=== PATIENT | male | born 1955 | race Caucasian/White ===

== ENCOUNTER → 2018-08-07 12:59 | Outpatient (CLI) | payer MEDICARE, SELFPAY ==
--- NOTE | 2018-08-07 13:01 | CT_ITS ---
CT lung screening EXAM: CT LUNG LOW DOSE WO CONTRAST HISTORY: 45 pack year smoking history asymptomatic for lung cancer ITS.REASON: CURRENT TOBACCO USE ORDERING PHYSICIAN: Clyde Lanza MD PATIENT AGE: 63 years COMPARISON: None TECHNIQUE: The exam was performed on a GE Light Speed [address] scanner using 2.90 mGy CTDI. A low dose helical CT CHEST was performed on a multi-detector scanner. All CT scans at the facility use one or more dose reduction, viz: automated exposure control, ma/kV adjustment per patient size (including targeted exams where dose is matched to indication, i.e. head), or iterative reconstruction technique. The LDCT was performed in a facility that meets the criteria for the screening program. Data regarding this exam was submitted to ACR which is an approved registry. The order for this exam indicates that it came as a result of a lung cancer screening counseling shard decision-making visit that included all the elements required of such a visit including smoking cessation. The radiologist interpreting this exam meets the [facility] criteria for the LDCT lung cancer screening program. The exam is reported using the Lung-RADS classification scale and reported to the ACR registry. NOTE: This study was performed for the specific purposes of lung cancer screening and is not an alternative to diagnostic chest CT. RADIATION DOSE: CTDI vol(CT dose Index-volume) = 2.90mG DLP (Dose Length Product) = 125.33 mGcm FINDINGS: COPD with centrilobular emphysema and scattered areas of scarring with bilateral scattered calcified nodules. There are scattered fibrotic changes. Calcified pleural plaque is present in the left lower lobe. Noncalcified 4 mm nodule apical superior segment left lower lobe. There are biapical fibronodular changes probably related to scarring. 6 month follow-up suggested to confirm short-term stability. Scattered calcified nodes are present in the mediastinum. There are coronary artery calcifications. IMPRESSION: 1. Lung RADS Category: 3, probably benign biapical fibronodular changes 2. Other findings: Centrilobular emphysema with scattered areas of fibrosis and old granulomatous disease, coronary artery calcification RECOMMENDATIONS: 6 month LDCT follow-up
== END ==
PROVIDERS: PCP Family Medicine; Visit Provider Family Medicine
DX: Z12.2 Encounter for screening for malignant neoplasm of respiratory organs (principal); Z87.891 Personal history of nicotine dependence

== ENCOUNTER → 2020-02-27 13:22 | Outpatient (CLI) | payer MEDICARE, SELFPAY ==
--- NOTE | 2020-02-27 13:29 | CT_ITS ---
PROCEDURE: CT LUNG SCREENING CLINICAL INDICATION: CURRENT SMOKER 45 pack year smoking history COMPARISON: CT LUNGSCREEN CT lung screening from 08/07/2018 TECHNIQUE: The exam was performed on a GE Light Speed [address] scanner using 2.90 mGy CTDI. A low dose helical CT CHEST was performed on a multi-detector scanner. All CT scans at the facility use one or more dose reduction, viz: automated exposure control, ma/kV adjustment per patient size (including targeted exams where dose is matched to indication, i.e. head), or iterative reconstruction technique. The LDCT was performed in a facility that meets the criteria for the screening program. Data regarding this exam was submitted to ACR which is an approved registry. The order for this exam indicates that it came as a result of a lung cancer screening counseling shard decision-making visit that included all the elements required of such a visit including smoking cessation. The radiologist interpreting this exam meets the [facility] criteria for the LDCT lung cancer screening program. The exam is reported using the Lung-RADS classification scale and reported to the ACR registry. NOTE: This study was performed for the specific purposes of lung cancer screening and is not an alternative to diagnostic chest CT. RADIATION DOSE: CTDI vol(CT dose Index-volume) = 2.90mG DLP (Dose Length Product) = 117.24 mGcm FINDINGS: Biapical scarring once again noted with scattered nodular opacities which are stable. There are multiple calcified nodules. Centrilobular emphysema. No new suspicious nodules OTHER FINDINGS: Calcified pleural plaque left lower lobe posteriorly. Coronary artery calcifications are present. Calcified nodes are present in the mediastinum. IMPRESSION: Lung-RADS Category 2 Benign Appearance or Behavior Follow-up: Continue annual screening with LDCT in 12 months Dictated by: Tyrese Perez MD 03/08/2020 10:29 Tyrese Perez MD in [place] 03/08/2020 10:29
== END ==
PROVIDERS: PCP Family Medicine; Visit Provider Family Medicine
DX: Z87.891 Personal history of nicotine dependence (principal); Z12.2 Encounter for screening for malignant neoplasm of respiratory organs

== ENCOUNTER 2020-05-06 12:29 | Day surgery (SDC) | payer MEDICARE, SELFPAY ==
[2020-05-06] VITALS (12 sets, daily range): BP systolic 88–135; BP diastolic 38–76; PULSE 74–104; RESP 16–20; TEMP 36.6–37.1; O2SAT 94–99; BMI 17.3; BMI 17.4
[2020-05-06 12:55] LABS: Basophils # 0.1 K/mm3 (0-0.2); Basophils % 0.6 % (0.1-2.0); Eosinophils # 0.2 K/mm3 (0.0-0.4); Eosinophils % 1.3 % (0.1-12.0); Hematocrit 49.8 % (42.0-52.0); Hemoglobin 16.1 g/dL (14.1-18.0); Lymphocytes # 1.2 K/mm3 (0.7-4.5); Lymphocytes % 8.2 % (10-50); Mean Corpuscular HGB Conc 32.3 g/dL (31.8-35.4); Mean Corpuscular Hemoglobin 32.8 pg (27.0-31.2); Mean Corpuscular Volume 101.6 fl (80-94); Mean Platelet Volume 7.8 fl (7.4-10.4); Monocytes # 0.5 K/mm3 (0.1-1.0); Monocytes % 3.5 % (1.7-9.3); Neutrophils # 12.6 K/mm3 (1.8-7.8); Neutrophils % 86.5 % (37.0-80.0); Platelet Count 261 K/mm3 (142-424); Red Cell Distribution Width 13.6 % (11.5-17.5); White Blood Count 14.6 K/mm3 (4.8-10.8)
[2020-05-06 12:57] LABS: Chloride 101 mmol/L (98-107); Potassium 4.6 mmoL/L (3.5-5.1); Sodium 140 mmol/L (136-145)
[2020-05-06 12:58] LABS: MANUAL DIFFERENTIAL MANUAL DIFFERENTIAL (MANUAL DIFF)
[2020-05-06 13:00] LABS: Anion Gap 13.6 mEq/L (5-15); Blood Urea Nitrogen 19 mg/dl (9-20); Carbon Dioxide 30 mmol/L (22.0-30.0); Creatinine Clearance Estimated 60 mL/min (50-200); Estimated Glomerular Filt Rate 84 ml/min (>60); GFR (African American) 102 ML/MIN (>60); Glucose 120 mg/dl (74-100)
--- NOTE | 2020-05-06 13:01 | PC.NURSE ---
pt thought the food bolus had passed , after drinking water he said it was still there. pt resting
[2020-05-06 13:04] LABS: Anisocytosis 1+; Lymphocytes % 11 % (10-50); Macrocytosis 1+; Monocytes % 5 % (2-9); Neutrophils % 84 % (42-76); Platelet Estimate Normal; Stomatocytes 1+; Total Cells Counted 100
--- NOTE | 2020-05-06 13:20 | HMH.EDGENADL ---
ED Disposition Clinical Impression: Esophageal obstruction due to food impaction Disposition: Admitted as Observation Condition on Discharge: Good - Critical Care Critical Care Time: No Attestation: On 05/06/20, the high probability of a clinically significant, sudden or life threatening deterioration of the following system(s) required my full and direct attention, intervention and personal management. The time I documented below is in addition to time spent performing reported procedures but includes the following listed in this critical care notation. Medical Decision Making - Medical Records Medical records reviewed: Yes: I reviewed the patient's medical records. - Homero Inquiry Pt receiving controlled substance: No Vital Signs: 05/06/20 12:30 05/06/20 12:55 05/06/20 13:00 Temperature 98.6 F Temperature Source Oral Pulse Rate Pulse Rate [Radial] 104 H 103 H 96 H Respiratory Rate 20 20 20 Blood Pressure Blood Pressure [Right Arm] 135/76 110/73 131/75 Blood Pressure Mean [Right Arm] 95 85 93 Blood Pressure Source [Right Arm] Automatic Cuff Automatic Cuff Blood Pressure Position Blood Pressure Position [Right Arm] Sitting Supine Supine 02 Sat by Pulse Oximetry 98 98 97 Oxygen Delivery Method Room Air Room Air Room Air 05/06/20 13:51 05/06/20 14:12 05/06/20 14:51 Temperature 98.7 F Temperature Source Temporal Artery Scan Pulse Rate Pulse Rate [Radial] 88 85 102 H Respiratory Rate 18 18 16 Blood Pressure Blood Pressure [Right Arm] 127/66 123/67 132/74 Blood Pressure Mean [Right Arm] 86 85 93 Blood Pressure Source [Right Arm] Automatic Cuff Blood Pressure Position Blood Pressure Position [Right Arm] Sitting 02 Sat by Pulse Oximetry 95 95 97 Oxygen Delivery Method Room Air 05/06/20 14:55 Temperature 98 F Temperature Source Oral Pulse Rate 74 Pulse Rate [Radial] Respiratory Rate 16 Blood Pressure 125/74 Blood Pressure [Right Arm] Blood Pressure Mean [Right Arm] Blood Pressure Source [Right Arm] Blood Pressure Position Sitting Blood Pressure Position [Right Arm] 02 Sat by Pulse Oximetry Oxygen Delivery Method Room Air - Lab Data Lab Results 05/06/20 12:45: WBC 14.6 H, RBC 4.90, Hgb 16.1, Hct 49.8, MCV 101.6 H, MCH 32.8 H, MCHC 32.3, RDW 13.6, Plt Count 261, MPV 7.8, Neut % (Auto) 86.5 H, Lymph % (Auto) 8.2 L, [place] % (Auto) 3.5, Eos % (Auto) 1.3, Baso % (Auto) 0.6, Neut # (Auto) 12.6 H, Lymph # (Auto) 1.2, [place] # (Auto) 0.5, Eos # (Auto) 0.2, Baso # (Auto) 0.1, Total Counted 100, Neutrophils % (Manual) 84 H, Lymphocytes % (Manual) 11, Monocytes % (Manual) 5, Platelet Estimate Normal, Anisocytosis 1+, Macrocytosis 1+, Stomatocytes 1+ 05/06/20 12:45: Sodium 140, Potassium 4.6, Chloride 101, Carbon Dioxide 30, Anion Gap 13.6, BUN 19, Creatinine 0.90, Estimated Creat Clear 60, Estimated GFR 84, Est GFR ( Amer) 102, Glucose 120 H, Calcium 10.0 05/06/20 12:45: SARS-CoV-2 IgG Ab (Rapid) Negative, SARS-CoV-2 IgM Ab (Rapid) Negative Result diagrams: 05/06/20 12:45 05/06/20 12:45 Orders (Tests/Meds): ED MEDICATIONS Discontinued Medications Generic Name Dose Route Start Last Admin Trade Name Freq PRN Reason Stop Dose Admin Glucagon 1 mg 05/06/20 12:41 05/06/20 12:50 Glucagon 1 Mg/Ml Vial IV 05/06/20 12:42 1 mg ONCE ONE Administration Nitroglycerin 0.4 mg 05/06/20 12:42 05/06/20 12:50 Nitroglycerin 0.4mg Sl Tablet SL 05/06/20 12:43 0.4 mg ONCE ONE Administration Medical Decision Narrative: 64-year-old male with food bolus obstruction. IV placed and glucagon and nitroglycerin attempted however he is still spitting up and unable to tolerate by mouth. Plan to admit for endoscopy. General Adult HPI - General Chief complaint: Nausea/Vomiting/Diarrhea Stated complaint: something stuck in throat Time Seen by Provider: 05/06/20 13:00 Mode of Arrival: Ambulatory Limitations: No Limitations Description of Symptoms (R
--- NOTE | 2020-05-06 14:23 | PC.NURSE ---
Dr Foster spoke with Dr Bell.
--- NOTE | 2020-05-06 14:40 | PC.NURSE ---
pt to surgery for EGD
--- NOTE | 2020-05-06 14:59 | HMH.GSHP ---
HPI HPI: 64-year-old male with food bolus obstruction. He says he was eating roast beef yesterday for lunch and has been unable to swallow since then. He says that he is spitting up anything that he tries to swallow and feels the obstruction in his mid chest. He went to see his primary care physician today but was referred to the emergency department. He denies nausea vomiting diarrhea abdominal pain. He has never had a food bolus obstruction before although he has had symptoms of occasional self limited dysphagia. [facility] History I have reviewed the patient's past medical history: Yes Medical History: Denies:: Cancer, Diabetes Mellitus Type 1, Diabetes Mellitus Type 2, Internal Pacemaker, Lung Disease, MRSA, Seizures *Have you ever received a pneumonia vaccine?: Yes *Have you received a flu vaccine this season?: Yes Other Surgeries: Yes: Colonoscopy, EGD, Other. No: Pacemaker Amputation: No Fractures: Yes - *Social History Smoking Status: Current every day smoker Tobacco Type: cigarettes # Packs/Day (cigarettes): 20 Alcohol Intake: current Alcohol Intake Frequency:: a few times a week Substance Use Type: denies use *Occupational Status:: retired Housing: house Household Members: spouse *Travel in the last 8 weeks: None Family Hx:: Cancer, Diabetes, Heart Attack, Tuberculosis Review of Systems - Review of Systems Review of systems:: unable to obtain - *Neurologic Denies abnormal walking, Denies dizziness, Denies numbness, Denies sensory deficit, Denies tingling, Denies weakness Meds Home Medications Medication Instructions Recorded Confirmed Type Gabapentin 2,400 mg PO DAILY 05/06/20 05/06/20 History Levocetirizine Dihydrochloride 5 mg PO DAILY 05/06/20 05/06/20 History diazePAM [Diazepam 10 mg tablet] 10 mg PO DAILY 05/06/20 05/06/20 History Allergies Allergy/AdvReac Type Severity Reaction Status Date / Time IV contrast Dye Allergy Intermediate Hives Uncoded 02/19/19 10:08 Exam Vital signs and Labs for Last 24 Hours: Temp Pulse Resp BP Pulse Ox 98 F 74 16 125/74 95 05/06/20 14:55 05/06/20 14:55 05/06/20 14:55 05/06/20 14:55 05/06/20 14:12 Laboratory Results - last 24 hr 05/06/20 12:45: WBC 14.6 H, RBC 4.90, Hgb 16.1, Hct 49.8, MCV 101.6 H, MCH 32.8 H, MCHC 32.3, RDW 13.6, Plt Count 261, MPV 7.8, Neut % (Auto) 86.5 H, Lymph % (Auto) 8.2 L, [place] % (Auto) 3.5, Eos % (Auto) 1.3, Baso % (Auto) 0.6, Neut # (Auto) 12.6 H, Lymph # (Auto) 1.2, [place] # (Auto) 0.5, Eos # (Auto) 0.2, Baso # (Auto) 0.1, Total Counted 100, Neutrophils % (Manual) 84 H, Lymphocytes % (Manual) 11, Monocytes % (Manual) 5, Platelet Estimate Normal, Anisocytosis 1+, Macrocytosis 1+, Stomatocytes 1+ 05/06/20 12:45: Sodium 140, Potassium 4.6, Chloride 101, Carbon Dioxide 30, Anion Gap 13.6, BUN 19, Creatinine 0.90, Estimated Creat Clear 60, Estimated GFR 84, Est GFR ( Amer) 102, Glucose 120 H, Calcium 10.0 I & O for Last 24 hours: Intake & Output 05/04/20 05/05/20 05/06/20 05/07/20 11:59 11:59 11:59 11:59 Weight 128 lb - *Routine HEENT Exam Head: Present: normocephalic Eye: Present: EOMI, PERRL ENT: Present: mucous membranes moist - *Routine Neck Exam Present: supple. Absent: lymphadenopathy - *Routine Respiratory Exam Present: CTA bilaterally - *Routine Cardiovascular Exam Present: RRR - *Routine Abdominal Exam Present: soft, normoactive bowel sounds. Absent: tenderness - *Routine Extremities Exam Absent: cyanosis, clubbing, edema - *Routine Skin Exam Present: warm. Absent: rash - *Routine Neurological Exam Present: alert, oriented X3 Results - Results Lab Results Last 24 Hours:: Laboratory Results - last 24 hr 05/06/20 12:45: WBC 14.6 H, RBC 4.90, Hgb 16.1, Hct 49.8, MCV 101.6 H, MCH 32.8 H, MCHC 32.3, RDW 13.6, Plt Count 261, MPV 7.8, Neut % (Auto) 86.5 H, Lymph % (Auto) 8.2 L, [place] % (Auto) 3.5, Eos % (Auto) 1.3, Baso % (Auto) 0.6, Neut # (Auto) 12.6 H, Lymph # (Auto)
[2020-05-06 15:05] LABS: Coronavirus 19 IgG Antibody Negative (Negative); Coronavirus 19 IgM Antibody Negative (Negative)
--- NOTE | 2020-05-06 15:38 | P.PN_ITS ---
[facility] Anesthesia Checklist - Structural Data Admitted From: Home Planned Operative Procedure/s: removal foreign body esoph Consent for Planned Operative Procedure(s) Verified: Yes - Additional verifications Anesthesia Reactions: No - Airway Assessment C-Spine Mobility Assessed: Yes TMJ Mobility Assessed: Yes Dentition: Dentures-poor fitting - Neurological Assessment Level of Consciousness: Awake, Alert, Appropriate - Anesthesia Plan Anesthesia Risk discussed: Yes Anesthesia Plan: Verified ASA Class: III Anesthesia Type: MAC [facility] History I have reviewed the patient's past medical history: Yes Medical History: Denies:: Cancer, Diabetes Mellitus Type 1, Diabetes Mellitus Type 2, Internal Pacemaker, Lung Disease, MRSA, Seizures *Have you ever received a pneumonia vaccine?: Yes *Have you received a flu vaccine this season?: Yes Anesthesia experience/problems:: none Other Surgeries: Yes: Colonoscopy, EGD, Other. No: Pacemaker Amputation: No Fractures: Yes - *Social History Smoking Status: Current every day smoker Tobacco Type: cigarettes # Packs/Day (cigarettes): 1 Alcohol Intake: never Alcohol Intake Frequency:: a few times a week Substance Use Type: denies use *Occupational Status:: retired Housing: house Household Members: spouse *Travel in the last 8 weeks: None Family Hx:: Cancer, Diabetes, Heart Attack, Tuberculosis
--- NOTE | 2020-05-06 15:38 | P.PCN_ITS ---
- Procedure: Date: 05/06/20 Patient Date of :: 1955 Procedure Performed:: Esophagogastroduodenoscopy with retrieval of food bolus/impaction Indications:: 64-year-old male with food bolus obstruction. He says he was eating roast beef yesterday for lunch and has been unable to swallow since then. He says that he is spitting up anything that he tries to swallow and feels the obstruction in his mid chest. He went to see his primary care physician today but was referred to the emergency department. He denies nausea vomiting diarrhea abdominal pain. He has never had a food bolus obstruction before although he has had symptoms of occasional self limited dysphagia. Patient has no documented history of previous reflux and does not take any antacids. He does admit to some alcohol consumption and he is a smoker. Performing Provider:: Jose Bell MD Referring Provider:: Haroon Lanza MD Sedation:: MAC sedation Procedure:: Consent was obtained patient was taken to endoscopy procedure room. He was positioned in a lateral decubitus position. Adequate intravenous sedation was achieved with anesthesia titration of propofol. Olympus endoscope was inserted via the oropharynx and advanced into the esophagus. There was an appreciable amount of secretions which were suctioned free. Endoscope was advanced to approximately 40 cm from the incisors at which point a large meat food bolus was encountered. This was grasped with the Caesar grasping forcep. A small portion of the meat bolus was able to be extracted with withdrawal of the Caesar forcep. Kruse net was then inserted after the endoscope was reinserted. A small to moderate amount of the food bolus was able to be retrieved with withdrawal of the Kruse net. Endoscope was then once again reinserted and Kruse net was reinserted as well. At this point a very large bolus of meat was able to be retrieved with the Kruse net and withdrawn. Endoscope was reinserted. Obstruct ion was relieved. There is no evidence of any residual meat impaction. The endoscope was able to be advanced into the stomach without issue. Retroflexion revealed no evidence of any appreciable hiatal hernia. Endoscope was withdrawn into the distal esophagus. There was some appreciable inflammation due to the previous impaction. There was some evidence of distal erosive esophagitis secondary to the food impaction. Stomach was desufflated and the endoscope was withdrawn. Findings:: Food impaction with esophageal obstruction Recommendations:: Recommend proton pump inhibitors. I would recommend clear liquid diet for 24 hours then full liquid diet for 24 hours then soft diet with no meat or bread products. Recommend elective endoscopy in several weeks to reassess the area and potentially perform dilatation and biopsies if needed. Complications:: None immediately apparent Estimated blood obtained (mL): 0
== END 2020-05-06 16:12 | disposition home or self-care (01) ==
LOC: ER 14:36 → SDC 14:44
PROVIDERS: Emergency Provider Emergency Medicine; PCP Family Medicine; Visit Provider Surgery
PROC: 0DJ08ZZ Inspection of Upper Intestinal Tract, Via Natural or Artificial Opening Endoscopic (ICD-10-PCS; CPT 43235; principal; 2020-05-06 15:00)
DX: T18.128A Food in esophagus causing other injury, initial encounter (principal); K22.2 Esophageal obstruction; K22.10 Ulcer of esophagus without bleeding; Z91.041 Radiographic dye allergy status; Z79.899 Other long term (current) drug therapy; Z72.0 Tobacco use; Z80.9 Family history of malignant neoplasm, unspecified; Z83.3 Family history of diabetes mellitus; Z82.49 Family history of ischemic heart disease and other diseases of the circulatory system
CPT/HCPCS: 43247; 80048; 85007; 85025; 86328; 93005; 96365; 96375; 99284; J1610

== ENCOUNTER → 2020-05-29 10:23 | Outpatient (CLI) | payer MEDICARE, SELFPAY ==
--- NOTE | 2020-05-29 10:30 | XR_ITS ---
PROCEDURE: XR MULTIPLE SPINE 6+V CLINICAL INDICATION: CONTUSION OF LOWER BACK, Pain COMPARISON: MR PELW/O MRI-PELVIS W/O from 09/11/[address] lung screening from 08/07/2018 FINDINGS: Thoracic spine: Mild multilevel degenerative disc disease. No acute fracture or dislocation. Mild upper thoracic curvature convex left. There is a density overlying the anterior aspect of the sternum which may represent something upon the patient which appears to represent to folded wires. Lumbar spine: Postsurgical changes with inter pedicular screws at L4-5. No fracture or dislocation. There is degenerative disc disease at L2-L3 L3-L4 L4-5 and L5-S1. Subcortical sclerosis noted in the left hip which may be due to avascular necrosis. Other findings:There is a moderate amount of retained colonic feces. IMPRESSION: 1. Postsurgical and degenerative changes. No acute fracture. 2. Avascular necrosis of the left femoral head Dictated by: Tyrese Perez MD 05/29/2020 12:16 Tyrese Perez MD in [place] 05/29/2020 12:16
== END ==
PROVIDERS: PCP Family Medicine; Visit Provider Family Medicine
DX: S30.0XXA Contusion of lower back and pelvis, initial encounter (principal)
CPT/HCPCS: 72084

== ENCOUNTER → 2020-06-15 11:02 | Outpatient (CLI) | payer MEDICARE, SELFPAY ==
[2020-06-15 12:17] LABS: Coronavirus 19 IgG Antibody Negative (Negative); Coronavirus 19 IgM Antibody Negative (Negative)
== END ==
PROVIDERS: Visit Provider Surgery
DX: Z01.812 Encounter for preprocedural laboratory examination (principal); Z20.822 Contact with and (suspected) exposure to COVID-19; Z13.810 Encounter for screening for upper gastrointestinal disorder; R13.10 Dysphagia, unspecified
CPT/HCPCS: 36415; 86328

== ENCOUNTER 2020-06-16 06:15 | Day surgery (SDC) | payer MEDICARE, SELFPAY ==
[2020-06-09 13:56] VITALS: BMI 18.7
[2020-06-16 06:48] VITALS: BP 133/67; PULSE 85; RESP 18; TEMP 36.2; O2SAT 97
--- NOTE | 2020-06-16 07:39 | HMH.ANESCL ---
[facility] Anesthesia Checklist - Patient Identification Patient Identification: Arm Band - Structural Data Admitted From: Home Planned Operative Procedure/s: egd Consent for Planned Operative Procedure(s) Verified: Yes Verified Documents: Surgical Consent, History and Physical - NPO Status Verified Time NPO: 00:00 - Additional verifications Anesthesia Reactions: No - Airway Assessment C-Spine Mobility Assessed: Yes (mp2) TMJ Mobility Assessed: Yes Dentition: Edentulous - Neurological Assessment Level of Consciousness: Awake, Alert - Anesthesia Plan Anesthesia Risk discussed: Yes Anesthesia Plan: Verified ASA Class: II Anesthesia Type: MAC [facility] History I have reviewed the patient's past medical history: Yes Medical History: Reports:: Anxiety, Gastroesophageal Reflux Disease(GERD) Denies:: Cancer, Diabetes Mellitus Type 1, Diabetes Mellitus Type 2, Internal Pacemaker, Lung Disease, MRSA, Seizures *Have you ever received a pneumonia vaccine?: Yes *Have you received a flu vaccine this season?: Yes Anesthesia experience/problems:: nac Other Surgeries: Yes: Colonoscopy, EGD, Other. No: Pacemaker Amputation: No Fractures: Yes - *Social History Last grade of school completed: 9th or 10th Smoking Status: Current every day smoker Tobacco Type: cigarettes # Packs/Day (cigarettes): 1 Alcohol Intake: never Alcohol Intake Frequency:: a few times a week Substance Use Type: denies use *Occupational Status:: retired Housing: house Household Members: spouse *Travel in the last 8 weeks: None Family Hx:: Cancer, Diabetes, Heart Attack, Tuberculosis
[2020-06-16 07:46] VITALS: BP 87/50; PULSE 69; RESP 12; TEMP 36.2; O2SAT 96
[2020-06-16 07:49] VITALS: O2SAT 97
--- NOTE | 2020-06-16 07:49 | HMH.SCOPE ---
- Procedure: Date: 06/16/20 Patient Date of :: 1955 Procedure Performed:: Esophagogastroduodenoscopy with biopsy and dilatation to 20 mm using pneumatic dilator Indications:: Patient is a 64-year-old male. He underwent emergent upper endoscopy on 05/06/2020 for esophageal obstruction secondary to food bolus/impaction. He has been asymptomatic subsequently. However, he has had some indigestion. When he followed up in the office recently I started him on proton pump inhibitors. Performing Provider:: Jose Bell MD Referring Provider:: Haroon Lanza MD Sedation:: MAC sedation Procedure:: Patient was taken to endoscopy procedure room. He was positioned in lateral decubitus position. Adequate intravenous sedation was achieved. Olympus endoscope was inserted via the oropharynx. It was advanced through the esophagus. There is some minor tortuosity of the esophagus. Gastroesophageal junction was encountered at approximately 45 cm from the incisors. Stomach was cannulated and insufflated. The endoscope was advanced through the pylorus and into the proximal duodenum which appeared normal. Within the stomach gastric biopsy was obtained for CLOtest for H. pylori. Gastric biopsy was obtained for histopathologic analysis. A couple of biopsies were obtained at the gastroesophageal junction. A couple of distal esophageal random biopsies were obtained. There was some minor luminal narrowing at the gastroesophageal junction. This was dilated sequentially to 18 mm, 19 mm, and ultimately 20 mm. There appeared to be good result. Stomach was desufflated and the scope was withdrawn. Findings:: Gastroesophageal junction at 45 cm from the incisors Minor distal esophageal luminal narrowing Recommendations:: Continue proton pump inhibitors for now. Treat H. pylori if positive Complications:: None immediately apparent Estimated blood obtained (mL): 2
[2020-06-16 07:56] VITALS: BP 88/58; PULSE 67; RESP 16; O2SAT 96
[2020-06-16 08:06] VITALS: BP 122/75; PULSE 69; RESP 16; O2SAT 98
[2020-06-16 08:16] VITALS: BP 124/89; PULSE 69; RESP 16; TEMP 36.2; O2SAT 98
== END 2020-06-16 08:24 | disposition home or self-care (01) ==
PROVIDERS: PCP Family Medicine; Visit Provider Surgery
PROC: 0DJ08ZZ Inspection of Upper Intestinal Tract, Via Natural or Artificial Opening Endoscopic (ICD-10-PCS; CPT 43235; principal; 2020-06-16 07:30)
DX: K22.2 Esophageal obstruction (principal); Z87.19 Personal history of other diseases of the digestive system; K21.9 Gastro-esophageal reflux disease without esophagitis; F41.9 Anxiety disorder, unspecified; Z72.0 Tobacco use; Z83.3 Family history of diabetes mellitus; Z80.9 Family history of malignant neoplasm, unspecified; Z82.49 Family history of ischemic heart disease and other diseases of the circulatory system; Z79.899 Other long term (current) drug therapy; Z91.041 Radiographic dye allergy status
CPT/HCPCS: 43239; 43249; 87339; 88305; 88312; 88342; C1726

== ENCOUNTER 2020-06-25 10:00 | Outpatient (RCR) | payer MEDICARE, SELFPAY ==
--- NOTE | 2020-06-18 09:51 | HMH.PTOPEV ---
PT Outpatient Evaluation Rehab PT Outpatient Evaluation Start: 06/18/20 08:59 Freq: Status: Active Protocol: Document 06/18/20 09:35 HORACE (Rec: 06/18/20 09:50 PHORKOBE [id number]) Electronically Signed By Jass Allan, PT 06/18/20 09:35 Outpatient Therapy Subjective History Subjective History Pt is 65 yowm who presents with c/o B low back pain ( worse on R) x many years, but now worse after 2 falls on ice ~ 1 wk ago. Pt had X-rays performed which show no fxs or acute injuries, but DDD throughout the spine (Thoracic and Lumbar) and possible AVN of L hip. He also has hx of Lumbar fusion at L4/5. He presents with moderate forward flexed posture and shuffling gait, which he reports is his baseline. He reports no significant PMH and no numbness or tingling in the LE . Chief Complaint Pain,Stiff Symptom Type Ache,Sharp Symptoms Relieved By Rest/Positioning Symptoms Aggravated By Physical Activity,Twisting Prior Functional Limitations Standing,Walking Current Functional Limitations Standing,Walking Symptom Description Constant but Variable Level of pain today (0-10) 7 Pain scale - at its worst (0-10) 10 Lumbopelvic Eval Posture Thoracic Spine Posture Standing Position Fixed Scoliosis on (L) Lumbar Spine Posture Standing Position Decreased Lordosis,Fixed Scoliosis on (R) Assistive device Assistive Devices None / NA Gait Observation General Gait Pattern Observation Shuffling Step,Decrease Stride Lngth (R),Decrease Stride Lngth (L) Palapation tenderness right buttock tenderness Yes Accessory Movement T-spine Vertebrae Accessory Movements Central P/A [place] that Elicit Symptoms T10 bilateral T11 bilateral T12 bilateral L-spine Vertebrae Accessory Movements Central P/A [place] that Elicit Symptoms L2 bilateral L3 bilateral L4 bilateral L5 bilateral S1 bilateral Range of Motion Lumbar Spine Active Flexion Range of 0-40 Motion (degrees) Lumbar Spine Active Ex
== END 2020-06-25 10:05 | disposition home or self-care (01) ==
LOC: PT 10:00
PROVIDERS: PCP Family Medicine; Visit Provider Family Medicine
DX: S30.0XXD Contusion of lower back and pelvis, subsequent encounter (principal)
CPT/HCPCS: 97010; 97014; 97110; 97140; 97163; G0283

== ENCOUNTER → 2020-09-30 13:14 | Outpatient (CLI) | payer MEDICARE, SELFPAY ==
[2020-09-30 14:19] LABS: Blood Urea Nitrogen 19 mg/dl (9-20); Estimated Glomerular Filt Rate 96 ml/min (>60); GFR (African American) 117 ML/MIN (>60)
== END ==
PROVIDERS: Visit Provider Family Medicine
DX: G44.309 Post-traumatic headache, unspecified, not intractable (principal)
CPT/HCPCS: 36415; 82565; 84520

== ENCOUNTER → 2020-10-06 09:41 | Outpatient (CLI) | payer MEDICARE, SELFPAY ==
--- NOTE | 2020-10-06 09:45 | MR_ITS ---
PROCEDURE: MR HEAD/BRAIN WO/W CON CLINICAL INDICATION: POST CONCUSSION HEADACHE COMPARISON: No exams were available for comparison TECHNIQUE: Routine multiplanar multi echo sequences are performed without gadolinium enhancement. FINDINGS: There is mild diffuse cerebral atrophy and mild white matter changes most compatible with chronic small vessel ischemic disease. No evidence of acute intracranial or subarachnoid hemorrhage. No cerebral edema mass effect or midline shift. No abnormal signal in the brainstem navjot or cerebellum. Midline structures including the cavernous sinus regions and pituitary gland are normal. There is normal flow void in the vertebral basilar system and internal carotid arteries suggesting patency. Some mucosal thickening noted throughout the paranasal sinuses, particularly in the left sphenoid sinus. Mastoid air cells show small amount of nonspecific fluid on the right. Postcontrast images show no pathologic contrast enhancement or abnormally enhancing mass. Orbits and globes are normal. Postop changes of prior right frontal craniotomy noted. IMPRESSION: No acute intracranial abnormality. Mild diffuse cerebral atrophy and mild white matter changes most compatible with chronic small vessel ischemic disease. Some mucosal thickening throughout the paranasal sinuses particularly in the left sphenoid sinus. Postcontrast images show no pathologic contrast enhancement or abnormal enhancing mass. Small amount of nonspecific fluid in the right mastoid air cells. Prior right frontal craniotomy. Dictated by: Mandeep Santos MD 10/06/2020 14:48 Mandeep Santos MD in [place] 10/06/2020 14:48
== END ==
LOC: RAD 09:42
PROVIDERS: PCP Family Medicine; Visit Provider Family Medicine
DX: G44.309 Post-traumatic headache, unspecified, not intractable (principal)
CPT/HCPCS: 70553; A9576

== ENCOUNTER → 2021-05-06 15:28 | Outpatient (CLI) | payer BC, MEDICARE, SELFPAY | PROVIDERS: PCP Family Medicine; Visit Provider Nurse Practitioner | DX: Z20.822 Contact with and (suspected) exposure to COVID-19 (principal) | CPT/HCPCS: C9803; U0003; U0005 ==

== ENCOUNTER → 2021-06-23 14:55 | Outpatient (CLI) | payer MEDICARE, SELFPAY ==
--- NOTE | 2021-06-23 15:00 | CT_ITS ---
FINAL REPORT CLINICAL HISTORY: current smoker COMPARISON: August 07, 2018 and February 27, 2020 FINDINGS: Low-Dose Chest CT CTDI vol (mGy): 2.90 DLP (mGy-cm): 116.98 Axial images were obtained from the lung apex to the mid abdomen by computed tomography. Low-dose protocol was utilized. FINDINGS: CHEST: There is no axillary adenopathy. There are multiple calcified hilar and mediastinal lymph nodes. The heart is proper size. There is no pericardial or pleural effusion. Limited images of the upper abdomen are unremarkable. Lung window images demonstrate moderate changes of emphysema. There is moderate scarring. There are numerous calcified granulomas. Most of the nodular opacities in the apices are stable. There is a new 9 mm nodular opacity anterior right upper lobe. Left posterior pleural calcification is stable. IMPRESSION: New 9 mm nodular opacity, anterior right upper lobe. Lung RADS category 4B. Recommend PET-CT. Reviewed, Interpreted and Dictated by Jose Rosa III, MD Transcribed by Ambreen Quintana Authenticated by Jose Rosa III, MD on 06/23/2021 03:56:27 PM [facility]
== END ==
PROVIDERS: PCP Family Medicine; Visit Provider Family Medicine
DX: Z87.891 Personal history of nicotine dependence (principal); Z12.2 Encounter for screening for malignant neoplasm of respiratory organs
CPT/HCPCS: 71271

== ENCOUNTER 2021-07-19 07:53 | Day surgery (SDC) | payer MEDICARE, BC, SELFPAY ==
[2021-07-16 12:23] VITALS: BMI 17.3
[2021-07-19] VITALS (12 sets, daily range): BP systolic 94–150; BP diastolic 53–91; PULSE 76–102; RESP 16–19; TEMP 36.2–43; O2SAT 94–99
[2021-07-19 08:11] LABS: Coronavirus 19, PCR Not Detected (NotDetected); Influenza A, PCR Not Detected (NotDetected); Influenza B, PCR Not Detected (NotDetected)
--- NOTE | 2021-07-19 09:54 | HMH.ANESCL ---
[facility] Anesthesia Checklist - Structural Data Admitted From: Home Planned Operative Procedure/s: Bronchoscopy Consent for Planned Operative Procedure(s) Verified: Yes Verified Documents: Surgical Consent - NPO Status Verified Time NPO: 00:00 - Additional verifications Anesthesia Reactions: No - Airway Assessment C-Spine Mobility Assessed: Yes TMJ Mobility Assessed: Yes - Neurological Assessment Level of Consciousness: Awake, Alert, Appropriate - Anesthesia Plan Anesthesia Risk discussed: Yes ASA Class: III Anesthesia Type: General [facility] History Medical History: Reports:: Anxiety, Gastroesophageal Reflux Disease(GERD) Denies:: Cancer, Diabetes Mellitus Type 1, Diabetes Mellitus Type 2, Internal Pacemaker, Lung Disease, MRSA, Seizures *Have you ever received a pneumonia vaccine?: No *Have you received a flu vaccine this season?: Yes Anesthesia experience/problems:: no issues Other Surgeries: Yes: Colonoscopy, EGD, Other. No: Pacemaker Amputation: No Fractures: Yes (back) - *Social History Last grade of school completed: 9th or 10th Smoking Status: Current every day smoker Tobacco Type: cigarettes # Packs/Day (cigarettes): 1 Alcohol Intake: never Alcohol Intake Frequency:: a few times a week Substance Use Type: denies use *Occupational Status:: retired Housing: house Household Members: spouse *Travel in the last 8 weeks: None - Psychiatric History Pschychiatric History:: Reports:: Anxiety Family Hx:: Cancer, Tuberculosis
--- NOTE | 2021-07-19 10:27 | SUR.PREOP ---
1025- assisted patient to BR. Pt urinated and assisted back to stretcher. Side rails up and applied warm blankets . Call light given to patient. He has phone in his hand and denture cup on lap. Stated he is comfortable
--- NOTE | 2021-07-19 12:33 | HMH.ANESI ---
[facility] Anesthesia Record Part I Intake, IV Amount: 1,000 Estimated blood loss (mL): 10 Urine output (mL): 0 Blood Pressure: 108/58 SaO2: 95 Pulse Rate: 102 Respiratory Rate: 19 Temperature: 97.7 F Patient is:: Drowsy Stable to PACU at:: 12:21
--- NOTE | 2021-07-19 12:54 | SUR.PHASEI ---
1251- detailed report given to yamila pagan. Pt in stable condition at this time.
--- NOTE | 2021-07-19 13:57 | HMH.ANESII ---
[facility] Anesthesia Record Part II Discharge Time: 12:51 Destination: Surgical Day Care (OP Surgery) PACU nurse assessment reviewed?: Yes Patient Condition:: Good Anesthesia Complications:: None Swallowing reflex intact?: Yes Cyanosis?: No Blood Pressure: 122/58 Pulse Rate: 90 Temperature: 97.5 F Mental Status: Alert & Oriented Pain level:: 0 Nausea and/or vomitting:: None Intake, IV Amount: 0
--- NOTE | 2021-07-19 15:11 | HMH.BRONCH ---
- Procedure: Date: 07/19/21 Patient Date of :: 1955 Procedure Performed:: Bronchoscopy with EBUS FNA Indications:: Lung nodule and lymphadenopathy Performing Provider:: Jere Olivares MD Referring Provider:: Dr. Lanza Sedation:: General anesthesia Procedure:: Bronchoscopy with EBUS FNA: Clean EBUS bronchoscopy advanced the ET tube and lymph node surveillance was performed. Patient noted to have borderline enlarged lymphadenopathy at station 10 L, 4L and 10 R. Station 7 is enlarged to 2 cm. EBUS FNA was performed in each of these lymph node stations with adequate lymphoid sample obtained. Pathology at bedside did not show any evidence of malignancy. We will follow with the final results. Patient tolerated the procedure well. Submitted blood loss 5 cc. Follow in the clinic as previously scheduled with the results. Findings:: Please see the procedure note Specimens:: Fine-needle aspiration samples Recommendations:: Please see the procedure note Complications:: None Estimated blood obtained (mL): 5
== END 2021-07-19 13:40 | disposition home or self-care (01) ==
LOC: OR 07:54
PROVIDERS: PCP Family Medicine; Visit Provider Internal Medicine Pulmonary Disease
DX: R91.1 Solitary pulmonary nodule (principal); F17.210 Nicotine dependence, cigarettes, uncomplicated; Z20.822 Contact with and (suspected) exposure to COVID-19
CPT/HCPCS: 31653; 88172; 88173; 88305; C9803; J2405; J2710; U0003; U0005

== ENCOUNTER → 2021-10-06 15:23 | Outpatient (CLI) | payer MEDICARE, BC, SELFPAY ==
--- NOTE | 2021-10-06 15:24 | CT_ITS ---
FINAL REPORT TECHNIQUE: Axial images were obtained from the lung apex to the mid abdomen by computed tomography. Coronal reformatted images were obtained. This study was performed with techniques to keep radiation doses as low as reasonably achievable, (ALARA). Individualized dose reduction techniques using automated exposure control or adjustment of mA and/or kV according to the patient''s size were employed. CLINICAL HISTORY: Nodule F/U COMPARISON: June 23, 2021 FINDINGS: There is no axillary adenopathy. There is no hilar or mediastinal adenopathy. Heart size is normal. There is no pericardial or pleural effusion. Limited images of the upper abdomen are unremarkable. There is a stable 9 mm nodule in the anterior right upper lobe on image 24. There are multiple other calcified and noncalcified nodules throughout both lungs that are stable as well. There are moderate changes of emphysema with moderate scarring. There is stable left pleural calcification. IMPRESSION: Multiple stable pulmonary nodules. Recommend additional follow-up in 6 months. Reviewed, Interpreted and Dictated by Jose Rosa III, MD Transcribed by Derek Villarreal Authenticated and [facility]
== END ==
PROVIDERS: PCP Family Medicine; Visit Provider Internal Medicine Pulmonary Disease
DX: R91.8 Other nonspecific abnormal finding of lung field (principal)
CPT/HCPCS: 71250

== ENCOUNTER → 2022-04-11 12:52 | Outpatient (CLI) | payer MEDICARE, SELFPAY ==
[2022-04-11 13:50] VITALS: PULSE 77; PULSE 80
--- NOTE | 2022-04-11 14:27 | CT_ITS ---
FINAL REPORT TECHNIQUE: Axial CT images were performed from the lung apices through the upper abdomen. Coronal reformats were submitted. This study was performed with techniques to keep radiation doses as low as reasonably achievable (ALARA). Individualized dose reduction techniques using automated exposure control or adjustment of mA and/or kV according to the patient's size were employed. CLINICAL HISTORY: 6 moth F/U COMPARISON: 10/06/2021 FINDINGS: There is no axillary adenopathy. There are multiple calcified mediastinal and hilar nodes. Heart size is normal. There is no pericardial or pleural effusion. Limited images of the upper abdomen are unremarkable. There are numerous calcified granulomas in both lungs. There is bilateral scarring. There are several noncalcified pulmonary nodules including a stable, 9 mm anterior right upper lobe nodule well seen on image 26. Other small nodules are stable. No new mass or nodule is identified. There are left posterior pleural calcifications. Multiple chronic left lateral and posterior rib fractures are seen. IMPRESSION: Stable pulmonary nodules. Consider additional follow-up in 12 months. Reviewed, Interpreted and Dictated by Jose Rosa III, MD Transcribed by Yasmine Lizarraga Authenticated and [facility]
== END ==
LOC: RT 12:52
PROVIDERS: PCP Family Medicine; Visit Provider Internal Medicine Pulmonary Disease
DX: R91.8 Other nonspecific abnormal finding of lung field (principal)
CPT/HCPCS: 71250; 94060; 94640; 94727; 94729

== ENCOUNTER 2022-11-29 09:32 | Day surgery (SDC) | payer MEDICARE, SELFPAY ==
[2022-09-06 13:05] VITALS: BMI 17.1
[2022-11-29] VITALS (7 sets, daily range): BP systolic 85–129; BP diastolic 46–69; PULSE 70–97; RESP 14–18; TEMP 36.6–36.7; O2SAT 94–100
--- NOTE | 2022-11-29 09:57 | P.PCN_ITS ---
Procedure: Date: 11/29/22 Patient Date of :: 1955 Procedure Performed:: Colonoscopy Indications:: History of colon polyps Note: Colonoscopy in June 2018 was complicated by poor bowel preparation and t ortuosity. An adenoma was excised at 15 cm. Short-term follow-up colonoscopy in January 2019 was somewhat complicated by moderate bowel preparation and persistent tortuosity. The patient does have evidence of an enlarged prostate and has been evaluated by his primary care physician. Performing Provider:: Deny Riggins MD Referring Provider:: . Sedation:: Monitored anesthesia care Procedure:: After informed consent was obtained the patient was taken to the endoscopy suite. Sedation ensued after the patient was transferred to the left lateral decubitus position. Pulse, blood pressure, and oxygen saturation were monitored throughout the procedure. Digital rectal exam revealed no significant abnormality. The colonoscope was placed in position. The entire colon was evaluated. The colonoscope was carefully removed and the patient was transferred to recovery in stable condition. Please see findings and specimens below for detail. Findings:: Fairly poor bowel preparation Enlarged prostate Significant tortuosity persists Specimens:: none Recommendations:: Repeat colonoscopy in 3-5 years with extended bowel preparation Complications:: No immediate with the exception of limited bowel preparation Estimated blood obtained (mL): 0 Colonoscopy Component Colonoscopy Component Was a colonoscopy performed during today's procedure?: Yes Recommended follow up colonoscopy of at least 10 years?: No If no, follow up colonoscopy recommended in ___ years?: 3-5 Reason for not recommending >/= 10 yr follow-up interval?: History of polyps; limited bowel preparation
--- NOTE | 2022-11-29 10:00 | EXP.ANES.CKL ---
[facility] Disclaimer: The information contained in this section may have been updated after the patient was seen, as this information can be updated by other users. Medical History COPD mixed type Hilar lymphadenopathy Mediastinal lymphadenopathy Multiple lung nodules on CT Smoking greater than 30 pack years Tobacco abuse counseling Tobacco abuse disorder Surgical History History of back surgery History of eye surgery Family History Other Leukemia Lung cancer Social History Smoking Status: Former smoker how long ago did patient quit smokin weeks second hand exposure: Yes alcohol intake: never substance use type: denies use current occupational status: retired Travel in the last 8 weeks: None household members: spouse housing: house lives independently: No marital status: education level: high school service: No current occupational exposures/hazards: No caffeine: Yes firearms in home: No do you feel safe at home: Yes victim of physical abuse: No victim of emotional abuse: No victim of sexual abuse: No would you like helpful sources: No [facility] Anesthesia Checklist Patient Identification Patient Identification: Arm Band and Verbal (Name & ) Structural Data Admitted From: Home Planned Operative Procedure/s: Colonoscopy Consent for Planned Operative Procedure(s) Verified: Yes NPO Status Verified Time NPO: 00:00 Additional verifications Anesthesia Reactions: No Airway Assessment Mallampati Score:: Class IV C-Spine Mobility Assessed: Yes TMJ Mobility Assessed: Yes Dentition: Edentulous Neurological Assessment Level of Consciousness: Awake Hx Seizures: No Numbness or tingling in extremities: No Anesthesia Plan Anesthesia Risk discussed: Yes Anesthesia Plan: Verified ASA Class: II Anesthesia Type: MAC
--- NOTE | 2022-11-29 11:50 | SUR.PHASEII ---
Pt. and spouse were in post op bay 5. Pt. was ready to be discharged home after his colonoscopy. Discussed with patient to go slow and be careful when getting up to get clothes on. Spouse and pt. verbally state they understand and spouse states she will help him to get dressed. Large sound from bay heard, pt. found on the floor next to bed. Pt. and spouse report pt. changed from his non-skid socks to his normal socks and stepped out of the bed and slipped. He reports he hit his head on the bedside table. He denies any other injuries and reports no loss of consciousness. No visible injury to head. Dr. Riggins was notified and he recommended pt be seen in the ED to evaluate his head. Pt. was agreeable and was transported to ED via stretcher with spouse.
== END 2022-11-29 11:40 | disposition home or self-care (01) ==
PROVIDERS: PCP Family Medicine; Visit Provider Surgery
PROC: 0DJD8ZZ Inspection of Lower Intestinal Tract, Via Natural or Artificial Opening Endoscopic (ICD-10-PCS; principal; 2022-11-29 10:30)
DX: Z12.11 Encounter for screening for malignant neoplasm of colon (principal); Z86.010 Personal history of colon polyps; N40.0 Benign prostatic hyperplasia without lower urinary tract symptoms; K56.2 Volvulus
CPT/HCPCS: 45378; 99282; J2704

== ENCOUNTER 2022-11-29 11:48 | Emergency (ER) | payer MEDICARE, SELFPAY ==
[2022-11-29 11:49] VITALS: BP 129/69; PULSE 75; RESP 16; TEMP 36.4; O2SAT 99; BMI 17.1
--- NOTE | 2022-11-29 12:11 | HMH.EDGENADL ---
Discharge Plan Disposition Patient Disposition: Home, Self-Care Prescriptions Prescriptions: No Action albuterol sulfate 90 mcg/actuation HFA aerosol inhaler 2 inh inhalation QID PRN (Reason: shortness of breath or wheezing) 90 Days Qty: 8.5 2RF levocetirizine [Allergy Relief (levocetirizin)] 5 mg tablet 5 mg PO DAILY sulindac 150 MG tablet 150 mg PO DAILY gabapentin 600 MG tablet 2,400 mg PO DAILY diazepam 10 MG tablet 10 mg PO DAILY pantoprazole 40 MG tablet,delayed release (DR/EC) 40 mg PO DAILY Referrals Follow up/Referrals: Provider,Referral, MD [Primary Care Provider] - See instructions Activity Restrictions/Add. Instructions Additional Instructions/Restrictions: As discussed all of her decision rules for head injuries regarding CT scanning to evaluate for possible abnormalities that would require neurosurgical intervention have a cutoff for age at 63. However you have no symptoms at the moment it is exceedingly unlikely you have an intracranial injury that would require neurosurgical intervention. Therefore we opted to not get a CAT scan but please keep an eye on your symptoms have someone with you over the next few hours and return with any worsening symptoms which could include changes in mental status persistent nausea and vomiting or any other concerns. Clinical Impressions Clinical Impression: Minor head injury Discharge ED Provider: Alexi Arauz General Adult HPI General Chief complaint: Recheck/Abnormal Lab/Rx Stated complaint: Fall Time Seen by Provider: 11/29/22 12:10 Mode of Arrival: Wheelchair Source of Information: Patient, Spouse and Medical Record Limitations: No Limitations Description of Symptoms (Recalled from ER Triage Doc. by RN): c/o hitting his left forehead on a bs table while getting dressed to go home after a colonscopy. Pt and deny any LOC or pain at this time. History of Present Illness HPI narrative: Patient is a 67-year-old male presenting today with a head injury. He was getting a colonoscopy and was getting dressed and slipped while wearing his socks falling forward hitting the frontal left aspect of his forehead on the side of a table. No loss of consciousness there is no syncopal episode that led to this. He has not had any change in mental status any persistent nausea vomiting or any neurologic symptoms. He denies being on any antiplatelet or any anticoagulant agents. He states he currently has no symptoms. Related Data Home Medications Medication Instructions Recorded Confirmed diazepam 10 mg tablet 10 mg PO DAILY Anxiety 05/06/20 11/29/22 gabapentin 600 mg tablet 2,400 mg PO DAILY Pain 05/06/20 11/29/22 pantoprazole 40 mg tablet,delayed 40 mg PO DAILY STOMACH 06/09/20 11/29/22 release sulindac 150 mg tablet 150 mg PO DAILY arthritis pain 07/16/21 11/29/22 levocetirizine 5 mg tablet 5 mg PO DAILY allergies 07/28/22 11/29/22 (Allergy Relief (levocetirizine)) Previous Rx's Medication Instructions Recorded albuterol sulfate 90 mcg/actuation 2 inh inhalation QID PRN shortness 04/14/22 aerosol inhaler of breath or wheezing 90 days #8.5 grams Allergies Allergy/AdvReac Type Severity Reaction Status Date / Time Iodinated Contrast Media Allergy Intermediate Hives Verified 11/29/22 09:44 [facility] Disclaimer: The information contained in this section may have been updated after the patient was seen, as this information can be updated by other users. Medical History COPD mixed type Hilar lymphadenopathy Mediastinal lymphadenopathy Multiple lung nodules on CT Smoking greater than 30 pack years Tobacco abuse counseling Tobacco abuse disorder Surgical History History of back surgery History of eye surgery Family History Other Leukemia Lung c
[2022-11-29 12:15] VITALS: BP 130/60; PULSE 73; RESP 20; TEMP 36.7; O2SAT 98
--- NOTE | 2022-11-29 12:15 | PC.NURSE ---
PT BEING D/C AND PT REFUSED A WHEEL CHAIR HE WANTED TO WALK , WALKING WITH HIM
== END 2022-11-29 12:17 | disposition home or self-care (01) ==
PROVIDERS: Emergency Provider Student in an Organized Health Care Education/Training Program; PCP Family Medicine
DX: S09.8XXA Other specified injuries of head, initial encounter (principal); J44.9 Chronic obstructive pulmonary disease, unspecified; F17.200 Nicotine dependence, unspecified, uncomplicated
CPT/HCPCS: 99282

== ENCOUNTER → 2023-04-10 07:59 | Outpatient (CLI) | payer MEDICARE, SELFPAY ==
--- NOTE | 2023-04-10 08:04 | US_ITS ---
FINAL REPORT CLINICAL HISTORY: ASCVD COMPARISON: None FINDINGS: Sonographic images were obtained of the abdominal aorta. The abdominal aorta measures up to 2 cm in greatest dimensions. The common iliac arteries are within normal limits. IMPRESSION: No evidence of aortic aneurysm. Reviewed, Interpreted and Dictated by Regulo Schaeffer MD Transcribed by Jenna Brar Authenticated and [facility]
== END ==
LOC: RAD 08:00
PROVIDERS: PCP Family Medicine; Visit Provider Family Medicine
DX: I25.10 Atherosclerotic heart disease of native coronary artery without angina pectoris (principal); Z72.0 Tobacco use
CPT/HCPCS: 76705

== ENCOUNTER 2023-05-04 14:34 | Outpatient (CLI) | payer MEDICARE, SELFPAY | END 2023-05-04 23:59 | LOC: RAD 14:34 | PROVIDERS: PCP Family Medicine; Visit Provider Internal Medicine Pulmonary Disease | DX: Z87.891 Personal history of nicotine dependence (principal); Z12.2 Encounter for screening for malignant neoplasm of respiratory organs ==

== ENCOUNTER 2023-05-04 14:57 | Emergency (ER) | payer MEDICARE, SELFPAY ==
[2023-05-04 15:35] VITALS: BP 135/60; PULSE 71; RESP 20; TEMP 36.7; O2SAT 96; BMI 18.4
[2023-05-04 15:51] VITALS: BP 135/60; PULSE 71; RESP 20; TEMP 36.7; O2SAT 96
--- NOTE | 2023-05-04 16:19 | EXP.UTC ---
Discharge Plan Disposition Patient Disposition: Home, Self-Care Condition: Good Prescriptions Prescriptions: No Action albuterol sulfate 90 mcg/actuation HFA aerosol inhaler 2 inh inhalation QID PRN (Reason: shortness of breath or wheezing) 90 Days Qty: 8.5 2RF levocetirizine [Allergy Relief (levocetirizin)] 5 mg tablet 5 mg PO DAILY polyethylene glycol 3350 [Miralax] 17 gram/dose powder 17 g PO DAILY sulindac 150 MG tablet 150 mg PO DAILY gabapentin 600 MG tablet 2,400 mg PO DAILY diazepam 10 MG tablet 10 mg PO DAILY pantoprazole 40 MG tablet,delayed release (DR/EC) 40 mg PO DAILY Referrals Follow up/Referrals: Clyde Lanza MD [Primary Care Provider] - See instructions Activity Restrictions/Add. Instructions Additional Instructions/Restrictions: You were tested for today for COVID19 your test result should be back in the next 24hours, You may check your results on the [facility] Portal if your COVID or Influenza is positive you must Quarantine for 5 days Clinical Impressions Clinical Impression: Encounter for laboratory testing for COVID-19 virus Instructions Patient Instructions: COVID-19 Viral Test Discharge ED Provider: Noemy Allen [facility] [place] HPI General Stated complaint: covid test Mode of Arrival: Ambulatory Source of Information: Patient Limitations: No Limitations Time Seen by Provider: 05/04/23 16:19 Description of Symptoms (Recalled from Triage Doc. by RN): PATIENT STATES HE IS HAVING A LUNG SCAN DONE TOMORROW AND IS NEEDING A COVID TEST DONE HEENT Symptoms (Recalled from RN notes): No Resp Symptoms (Recalled from RN notes): No Skin Symptoms (Recalled from RN notes): No MS Symptoms (Recalled from RN notes): No Functional Status (Recalled from RN notes): WNL History of Present Illness Provider Complaint: Patient states that he has a lung scan tomorrow and they wanted him to get a COVID test before doing the test Related Data Home Medications Medication Instructions Recorded Confirmed diazepam 10 mg tablet 10 mg PO DAILY Anxiety 05/06/20 12/07/22 gabapentin 600 mg tablet 2,400 mg PO DAILY Pain 05/06/20 12/07/22 pantoprazole 40 mg tablet,delayed 40 mg PO DAILY STOMACH 06/09/20 12/07/22 release sulindac 150 mg tablet 150 mg PO DAILY arthritis pain 07/16/21 12/07/22 levocetirizine 5 mg tablet 5 mg PO DAILY allergies 07/28/22 12/07/22 (Allergy Relief (levocetirizine)) polyethylene glycol 3350 17 17 g PO DAILY 12/07/22 12/07/22 gram/dose oral powder (Miralax) Previous Rx's Medication Instructions Recorded albuterol sulfate 90 mcg/actuation 2 inh inhalation QID PRN shortness 04/14/22 aerosol inhaler of breath or wheezing 90 days #8.5 grams Allergies Allergy/AdvReac Type Severity Reaction Status Date / Time Iodinated Contrast Media Allergy Intermediate Hives Verified 12/07/22 13:59 Worker's Comp Is this a Worker's Comp case?: No [facility] Disclaimer: The information contained in this section may have been updated after the patient was seen, as this information can be updated by other users. Medical History (Updated 05/04/23 @ 16:24 by Noemy Allen APRN) COPD mixed type Esophageal obstruction due to food impaction Hilar lymphadenopathy Mediastinal lymphadenopathy Multiple lung nodules on CT Smoking greater than 30 pack years Tobacco abuse counseling Tobacco abuse disorder Surgical History (Updated 12/07/22 @ 14:00 by HOLLIE Jang) History of back surgery History of colonoscopy History of eye surgery Family History Other Leukemia Lung cancer Social History Smoking Status: Current every day smoker how long ago did patient quit smokin weeks second hand exposure: Yes alcohol intake: never substance use type: denies use current occupational status: retired Travel in the last 8 weeks: None household members: spouse housing: house lives independently: No marital status: education level: high school service: No current occupational exposures/hazards: No caffeine: Yes firearms in home: No do you feel safe at home: Yes victim of physical abuse: No victim of emotional abuse: No victim of sexual abuse: No would you like helpful sources: No ROS Obtained: Yes All systems reviewed & no additional complaints except as documented Constitutional Constitutional: Reports system reviewed and no additional complaints, except as documented and Reports as per HPI ENT Ears, Nose, Mouth, and Throat: Reports system reviewed and no additional complaints, except as documented and Reports as per HPI Cardiovascular Cardiovascular: Reports system reviewed and no additional complaints, except as documented and Reports as per HPI Respiratory Respiratory: Reports system reviewed and no additional complaints, except as documented and Reports as per HPI Gastrointestinal Gastrointestingal: Reports system reviewed and no additional complaints, except as documented and as per HPI Physical Exam General General appearance: alert and in no apparent distress ENT ENT exam: Present mucous membranes moist Respiratory Respiratory exam: Present normal lung sounds bilaterally; Absent respiratory distress or wheezes Cardiovascular Cardiovascular exam: Present regular rate, normal rhythm and normal heart sounds Neurological Exam Neurological exam: Present alert, oriented X3 and normal gait Medical Decision Making Homero Inquiry Pt receiving controlled substance: No Homero was queried for this patient: No Vital Signs: 05/04/23 15:35 05/04/23 15:51 Temperature 98.1 F 98.1 F Temperature Source Oral Pulse Rate 71 Pulse Rate [Left Brachial] 71 Respiratory Rate 20 20 Blood Pressure 135/60 Blood Pressure [Left Arm] 135/60 Blood Pressure Mean [Left Arm] 85 Blood Pressure Source [Left Arm] Automatic Cuff Blood Pressure Position [Left Arm] Sitting 02 Sat by Pulse Oximetry 96 Oxygen Delivery Method Room Air Orders (Tests/Meds): ORDERS Category Date Time Status Covid-19 Nasal PCR ([facility]) Routine Lab 05/04/23 15:39 Received
== END 2023-05-04 16:27 | disposition home or self-care (01) ==
PROVIDERS: Emergency Provider Nurse Practitioner; PCP Family Medicine
DX: Z01.811 Encounter for preprocedural respiratory examination (principal); J44.9 Chronic obstructive pulmonary disease, unspecified; F17.200 Nicotine dependence, unspecified, uncomplicated
CPT/HCPCS: 87635; 99211; G0463

== ENCOUNTER 2023-05-19 14:08 | Outpatient (CLI) | payer MEDICARE, SELFPAY ==
--- NOTE | 2023-05-19 14:08 | CT_ITS ---
FINAL REPORT TECHNIQUE: Axial CT images of the chest were obtained without contrast. Low-dose protocol was utilized. This study was performed with techniques to keep radiation doses as low as reasonably achievable (ALARA). Individualized dose reduction techniques using automated exposure control or adjustment of mA and/or kV according to the patient's size were employed. CLINICAL HISTORY: lung cancer screening smoker, 1/ ppd x 53 years. COMPARISON: CT chest 04/11/[address] low-dose 06/23/2021 FINDINGS: CT CHEST WITHOUT, LOW DOSE SCREENING CT Di Vol: 2.90 mGy DLP: 119.85 mGy*cm There is a large bulky calcified right paratracheal lymph node. There it is a calcified subcarinal lymph node. The heart size is normal. There is no pleural or pericardial effusion. There is extensive calcified residua of old granulomatous disease. Lung windows demonstrate a multitude of scattered granulomas in both lungs. There is a 2.5 cm noncalcified mass in the anterior right upper lobe with surrounding cicatricial reaction which has markedly increased in size from the prior exam. Limited images of the upper abdomen demonstrate no acute findings. IMPRESSION: Markedly increased in size right upper lobe mass highly concerning for malignancy. LR Category 4B: PET/CT and needle sampling recommended. Reviewed, Interpreted and Dictated by Regulo Schaeffer MD Transcribed by Charlene Tello Authenticated and [facility]
== END 2023-05-19 23:59 ==
LOC: RAD 14:08
PROVIDERS: PCP Family Medicine; Visit Provider Internal Medicine Pulmonary Disease
DX: F17.210 Nicotine dependence, cigarettes, uncomplicated (principal); Z12.2 Encounter for screening for malignant neoplasm of respiratory organs
CPT/HCPCS: 71271

== ENCOUNTER 2023-07-04 12:24 | Outpatient (CLI) | payer MEDICARE, SELFPAY ==
[2023-07-04 13:12] LABS: Basophils # 0.1 K/mm3 (0-0.2); Basophils % 0.5 % (0.1-2.0); Eosinophils # 0.1 K/mm3 (0.0-0.4); Eosinophils % 0.7 % (0.1-12.0); Hematocrit 38.3 % (42.0-52.0); Hemoglobin 12.6 g/dL (14.1-18.0); Lymphocytes # 0.9 K/mm3 (0.7-4.5); Lymphocytes % 5.8 % (10-50); Mean Corpuscular HGB Conc 32.9 g/dL (31.8-35.4); Mean Corpuscular Hemoglobin 33.5 pg (27.0-31.2); Mean Corpuscular Volume 101.7 fl (80-94); Mean Platelet Volume 7.9 fl (7.4-10.4); Monocytes # 0.6 K/mm3 (0.1-1.0); Monocytes % 3.7 % (1.7-9.3); Neutrophils # 13.4 K/mm3 (1.8-7.8); Neutrophils % 89.4 % (37.0-80.0); Platelet Count 351 K/mm3 (142-424); Red Blood Count 3.76 M/mm3 (4.60-6.20); Red Cell Distribution Width 13.4 % (11.5-17.5)
[2023-07-04 13:17] LABS: MANUAL DIFFERENTIAL MANUAL DIFFERENTIAL (MANUAL DIFF)
[2023-07-04 13:54] LABS: Alanine Aminotransferase 18 U/L (12-78); Albumin Level 3.8 g/dl (3.5-5.0); Albumin/Globulin Ratio 1.3 (1.1-1.8); Alkaline Phosphatase 69 U/L (38-126); Aspartate Amino Transferase 22 U/L (17-59); Bilirubin,Total 0.6 mg/dl (0.2-1.3); Blood Urea Nitrogen 17 mg/dl (9-20); Calcium 9.1 mg/dl (8.4-10.2); Carbon Dioxide 29 mmol/L (22.0-30.0); Chloride 101 mmol/L (98-107); Estimated Glomerular Filt Rate 96 ml/min (>60); GFR (African American) 116 ML/MIN (>60); Glucose 122 mg/dl (74-100); Sodium 138 mmol/L (136-145); Total Protein,Serum 6.8 g/dl (6.3-8.2)
[2023-07-04 15:23] LABS: Lymphocytes % 9 % (10-50); Macrocytosis 1+; Monocytes % 1 % (2-9); Neutrophils % 90 % (42-76); Platelet Estimate Normal; Total Cells Counted 100
== END 2023-07-04 23:59 ==
LOC: LAB 12:25
PROVIDERS: PCP Family Medicine; Visit Provider Internal Medicine Medical Oncology
DX: C34.11 Malignant neoplasm of upper lobe, right bronchus or lung (principal)
CPT/HCPCS: 36415; 80053; 85007; 85025

== ENCOUNTER 2023-07-06 11:41 | Outpatient (CLI) | payer MEDICARE, SELFPAY ==
--- NOTE | 2023-07-06 11:48 | MR_ITS ---
FINAL REPORT CLINICAL HISTORY: RIGHT UPPER LOBE lung cancer 11 ml prohance given FINDINGS: Multiplanar MR imaging of the brain was performed without and with contrast. Motion artifact limits exam sensitivity. There is mild, age-appropriate atrophy and mild small vessel ischemic change. Presumed postoperative changes are seen of the right frontal skull. There is no evidence of intracranial hemorrhage or mass. No abnormal extra-axial fluid collection is seen. The ventricular size is within normal limits. There is no evidence of shift of the midline structures. The posterior fossa and brainstem have an unremarkable appearance. No area of abnormal restricted diffusion is identified. No abnormal contrast enhancement is seen. Normal major vessel vascular flow voids are noted. IMPRESSION: No acute intracranial abnormality identified. Reviewed, Interpreted and Dictated by Jose Rosa III, MD Transcribed by Viola Carmona Authenticated and [facility]
[2023-07-06] MEDS: GADOTERIDOL INJ 17ML SYRINGE 11 ML IV (12:59)
[2023-07-06] MEDS: SODIUM CHLORIDE 0.9% 10ML SYR (RAD ONLY) 10 ML IV (12:59)
== END 2023-07-06 23:59 ==
LOC: RAD 11:42
PROVIDERS: PCP Family Medicine; Visit Provider Internal Medicine Medical Oncology
DX: C34.11 Malignant neoplasm of upper lobe, right bronchus or lung (principal); Z72.0 Tobacco use
CPT/HCPCS: 70553; A9576

== ENCOUNTER 2023-08-16 10:05 | Outpatient (CLI) | payer MEDICARE, SELFPAY ==
[2023-08-16] VITALS (7 sets, daily range): BP systolic 99–124; BP diastolic 51–59; PULSE 80–89; RESP 18; TEMP 36.5; O2SAT 97–98; BMI 15.3
[2023-08-16 10:41] LABS: Basophils # 0.1 K/mm3 (0-0.2); Basophils % 0.6 % (0.1-2.0); Eosinophils # 0.7 K/mm3 (0.0-0.4); Eosinophils % 3.2 % (0.1-12.0); Hematocrit 38.2 % (42.0-52.0); Hemoglobin 12.2 g/dL (14.1-18.0); Lymphocytes # 1.4 K/mm3 (0.7-4.5); Lymphocytes % 6.7 % (10-50); Mean Corpuscular Hemoglobin 32.7 pg (27.0-31.2); Mean Corpuscular Volume 102.3 fl (80-94); Mean Platelet Volume 8.4 fl (7.4-10.4); Monocytes # 0.6 K/mm3 (0.1-1.0); Monocytes % 2.9 % (1.7-9.3); Neutrophils # 18.3 K/mm3 (1.8-7.8); Neutrophils % 86.7 % (37.0-80.0); Platelet Count 442 K/mm3 (142-424); Red Blood Count 3.73 M/mm3 (4.60-6.20); Red Cell Distribution Width 14.5 % (11.5-17.5); White Blood Count 21.1 K/mm3 (4.8-10.8)
[2023-08-16 10:43] LABS: MANUAL DIFFERENTIAL MANUAL DIFFERENTIAL (MANUAL DIFF)
[2023-08-16 10:52] LABS: Chloride 106 mmol/L (98-107); Potassium 5.5 mmoL/L (3.5-5.1); Sodium 140 mmol/L (136-145)
[2023-08-16 10:55] LABS: Alanine Aminotransferase 25 U/L (12-78); Albumin Level 3.8 g/dl (3.5-5.0); Albumin/Globulin Ratio 0.8 (1.1-1.8); Alkaline Phosphatase 74 U/L (38-126); Aspartate Amino Transferase 40 U/L (17-59); Blood Urea Nitrogen 26 mg/dl (9-20); Creatinine Clearance Estimated 51 mL/min (50-200); Estimated Glomerular Filt Rate 111 ml/min (>60); GFR (African American) 135 ML/MIN (>60); Globulin 4.8 g/dL (1.3-3.2); Total Protein,Serum 8.6 g/dl (6.3-8.2)
[2023-08-16 10:56] LABS: Calcium 10.2 mg/dl (8.4-10.2); Glucose 100 mg/dl (74-100)
[2023-08-16 11:06] LABS: Anion Gap 10.5 mEq/L (5-15); Carbon Dioxide 29 mmol/L (22.0-30.0)
[2023-08-16 11:09] LABS: Eosinophils % 1 % (0-3); Lymphocytes % 14 % (10-50); Macrocytosis 1+; Monocytes % 3 % (2-9); Neutrophils % 82 % (42-76); Total Cells Counted 100
[2023-08-16 11:12] LABS: Platelet Estimate Slight Increase
[2023-08-16] MEDS: FAMOTIDINE 20MG TABLET 20 MG (11:46)
[2023-08-16] MEDS: LORATADINE 10MG TABLET 10 MG PO (11:46)
[2023-08-16] MEDS: DEXAMETHASONE 4MG TABLET 12 MG (11:47)
[2023-08-16] MEDS: ONDANSETRON 4MG ODT 16 MG (11:47)
[2023-08-16] MEDS: 0.9 % SODIUM CHLORIDE 100 ML IV (11:47)
[2023-08-16] MEDS: SODIUM CHLORIDE 0.9% 10ML FLUSH SYRINGE 10 ML IV (11:59)
[2023-08-16] MEDS: PACLITAXEL IV (12:14)
[2023-08-16] MEDS: WATER IV (12:14)
[2023-08-16] MEDS: DEXTROSE 5% IV (12:14)
[2023-08-16] MEDS: SODIUM CHLORIDE 0.9% IV (13:26)
[2023-08-16] MEDS: CARBOPLATIN IV (13:26)
--- NOTE | 2023-08-18 13:09 | DIET.NUTRFU ---
Patient triggered for follow-up call secondary to chemo tx. answered patient was sleeping lethargic from yesterday's appt. She said the Marinol has been helping with appetite he as been drinking ensure/boost and carnation breakfast shakes. Wt is down on 05/04 wt was 63kg and CBW is 52kg. Provided contact information for any future concerns
== END 2023-08-16 14:15 | disposition home or self-care (01) ==
PROVIDERS: PCP Family Medicine; Visit Provider Internal Medicine Medical Oncology
DX: C34.11 Malignant neoplasm of upper lobe, right bronchus or lung (principal)
CPT/HCPCS: 80053; 85007; 85025; 96413; 96415; 96417; J9045; J9267

== ENCOUNTER 2023-08-23 10:05 | Outpatient (CLI) | payer MEDICARE, SELFPAY ==
[2023-08-23] VITALS (8 sets, daily range): BP systolic 90–109; BP diastolic 49–66; PULSE 73–99; RESP 15–16; TEMP 36.7–36.9; O2SAT 96; BMI 15.3
[2023-08-23 10:39] LABS: Basophils % 0.5 % (0.1-2.0); Eosinophils # 0.1 K/mm3 (0.0-0.4); Eosinophils % 1.5 % (0.1-12.0); Hematocrit 29.6 % (42.0-52.0); Hemoglobin 9.5 g/dL (14.1-18.0); Lymphocytes # 0.7 K/mm3 (0.7-4.5); Mean Corpuscular HGB Conc 32.1 g/dL (31.8-35.4); Mean Corpuscular Hemoglobin 31.7 pg (27.0-31.2); Mean Corpuscular Volume 98.8 fl (80-94); Mean Platelet Volume 8.6 fl (7.4-10.4); Monocytes # 0.2 K/mm3 (0.1-1.0); Monocytes % 2.3 % (1.7-9.3); Neutrophils # 8.3 K/mm3 (1.8-7.8); Neutrophils % 88.7 % (37.0-80.0); Platelet Count 263 K/mm3 (142-424); Red Blood Count 2.99 M/mm3 (4.60-6.20); Red Cell Distribution Width 14.3 % (11.5-17.5); White Blood Count 9.4 K/mm3 (4.8-10.8)
[2023-08-23 10:47] LABS: Alanine Aminotransferase 21 U/L (12-78); Albumin Level 3.2 g/dl (3.5-5.0); Albumin/Globulin Ratio 0.9 (1.1-1.8); Alkaline Phosphatase 75 U/L (38-126); Anion Gap 8.2 mEq/L (5-15); Aspartate Amino Transferase 25 U/L (17-59); Bilirubin,Total 1.2 mg/dl (0.2-1.3); Blood Urea Nitrogen 18 mg/dl (9-20); Calcium 9.1 mg/dl (8.4-10.2); Carbon Dioxide 27 mmol/L (22.0-30.0); Chloride 105 mmol/L (98-107); Creatinine Clearance Estimated 51 mL/min (50-200); Estimated Glomerular Filt Rate 111 ml/min (>60); GFR (African American) 135 ML/MIN (>60); Globulin 3.5 g/dL (1.3-3.2); Glucose 139 mg/dl (74-100); Potassium 3.2 mmoL/L (3.5-5.1); Sodium 137 mmol/L (136-145); Total Protein,Serum 6.7 g/dl (6.3-8.2)
[2023-08-23 11:00] LABS: MANUAL DIFFERENTIAL MANUAL DIFFERENTIAL (MANUAL DIFF)
[2023-08-23] MEDS: DEXAMETHASONE 4MG TABLET 12 MG (11:08)
[2023-08-23] MEDS: 0.9 % SODIUM CHLORIDE 100 ML IV (11:08)
[2023-08-23] MEDS: FAMOTIDINE 20MG TABLET 20 MG (11:09)
[2023-08-23] MEDS: ONDANSETRON 4MG ODT 16 MG (11:09)
[2023-08-23] MEDS: LORATADINE 10MG TABLET 10 MG PO (11:09)
[2023-08-23 11:22] LABS: Eosinophils % 1 % (0-3); Lymphocytes % 7 % (10-50); Monocytes % 3 % (2-9); Neutrophils % 89 % (42-76); Platelet Estimate Normal; RBC Morphology Normal; Total Cells Counted 100
[2023-08-23] MEDS: PACLITAXEL IV (11:37)
[2023-08-23] MEDS: DEXTROSE 5% IV (11:37)
[2023-08-23] MEDS: WATER IV (11:37)
[2023-08-23] MEDS: CARBOPLATIN IV (12:48)
[2023-08-23] MEDS: SODIUM CHLORIDE 0.9% IV (12:48)
== END 2023-08-23 13:45 | disposition home or self-care (01) ==
LOC: INF 10:06
PROVIDERS: PCP Family Medicine; Visit Provider Internal Medicine Medical Oncology
DX: C34.11 Malignant neoplasm of upper lobe, right bronchus or lung (principal)
CPT/HCPCS: 80053; 85007; 85025; 96413; 96415; 96417; J9045; J9267

== ENCOUNTER 2023-08-30 10:25 | Outpatient (CLI) | payer MEDICARE, SELFPAY ==
[2023-08-30 10:30] VITALS: BMI 15.3
[2023-08-30 10:51] LABS: Basophils % 0.9 % (0.1-2.0); Chloride 107 mmol/L (98-107); Eosinophils # 0.2 K/mm3 (0.0-0.4); Eosinophils % 3.4 % (0.1-12.0); Hematocrit 31.3 % (42.0-52.0); Hemoglobin 10.1 g/dL (14.1-18.0); Lymphocytes # 0.7 K/mm3 (0.7-4.5); Mean Corpuscular HGB Conc 32.1 g/dL (31.8-35.4); Mean Corpuscular Hemoglobin 32.2 pg (27.0-31.2); Mean Corpuscular Volume 100.1 fl (80-94); Mean Platelet Volume 8.5 fl (7.4-10.4); Monocytes # 0.1 K/mm3 (0.1-1.0); Monocytes % 2.7 % (1.7-9.3); Neutrophils # 3.5 K/mm3 (1.8-7.8); Neutrophils % 77.9 % (37.0-80.0); Platelet Count 217 K/mm3 (142-424); Red Blood Count 3.13 M/mm3 (4.60-6.20); Red Cell Distribution Width 14.6 % (11.5-17.5); Sodium 137 mmol/L (136-145); White Blood Count 4.4 K/mm3 (4.8-10.8)
[2023-08-30 10:52] LABS: Potassium 3.9 mmoL/L (3.5-5.1)
[2023-08-30 10:54] LABS: Alanine Aminotransferase 23 U/L (12-78); Albumin Level 3.3 g/dl (3.5-5.0); Alkaline Phosphatase 77 U/L (38-126); Anion Gap 9.9 mEq/L (5-15); Aspartate Amino Transferase 38 U/L (17-59); Bilirubin,Total 0.6 mg/dl (0.2-1.3); Blood Urea Nitrogen 16 mg/dl (9-20); Carbon Dioxide 24 mmol/L (22.0-30.0); Creatinine Clearance Estimated 51 mL/min (50-200); Estimated Glomerular Filt Rate 133 ml/min (>60); GFR (African American) 161 ML/MIN (>60); Globulin 3.3 g/dL (1.3-3.2); Glucose 94 mg/dl (74-100); Total Protein,Serum 6.6 g/dl (6.3-8.2)
[2023-08-30] MEDS: ONDANSETRON 4MG ODT 16 MG (11:05)
[2023-08-30] MEDS: FAMOTIDINE 20MG TABLET 20 MG (11:05)
[2023-08-30] MEDS: DEXAMETHASONE 4MG TABLET 12 MG (11:06)
[2023-08-30] MEDS: LORATADINE 10MG TABLET 10 MG PO (11:06)
[2023-08-30] MEDS: 0.9 % SODIUM CHLORIDE 100 ML IV (11:43)
[2023-08-30] MEDS: WATER IV (11:44)
[2023-08-30] MEDS: DEXTROSE 5% IV (11:44)
[2023-08-30] MEDS: PACLITAXEL IV (11:44)
[2023-08-30 11:45] VITALS: BP 100/52; PULSE 85; RESP 18; O2SAT 95
[2023-08-30 12:15] VITALS: BP 108/54; PULSE 86; RESP 18
[2023-08-30 12:45] VITALS: BP 104/56; PULSE 85; RESP 18
[2023-08-30] MEDS: CARBOPLATIN IV (12:54)
[2023-08-30] MEDS: SODIUM CHLORIDE 0.9% IV (12:54)
[2023-08-30 12:58] VITALS: BP 109/70; PULSE 91; RESP 18
[2023-08-30 13:44] VITALS: RESP 18
[2023-08-30 13:55] VITALS: BP 115/70; PULSE 86; RESP 18; O2SAT 95
== END 2023-08-30 13:55 | disposition home or self-care (01) ==
LOC: INF 10:26
PROVIDERS: PCP Family Medicine; Visit Provider Internal Medicine Medical Oncology
DX: C34.11 Malignant neoplasm of upper lobe, right bronchus or lung (principal); Z79.899 Other long term (current) drug therapy
CPT/HCPCS: 80053; 85025; 96413; 96415; 96417; J9045; J9267

== ENCOUNTER 2023-09-06 10:28 | Outpatient (CLI) | payer MEDICARE, SELFPAY ==
[2023-09-06 10:41] VITALS: BMI 15.3
[2023-09-06 11:02] LABS: Basophils % 1.3 % (0.1-2.0); Eosinophils # 0.1 K/mm3 (0.0-0.4); Eosinophils % 2.5 % (0.1-12.0); Hematocrit 31.7 % (42.0-52.0); Hemoglobin 10.1 g/dL (14.1-18.0); Lymphocytes # 0.7 K/mm3 (0.7-4.5); Lymphocytes % 19.6 % (10-50); Mean Corpuscular Hemoglobin 32.7 pg (27.0-31.2); Mean Corpuscular Volume 102.2 fl (80-94); Mean Platelet Volume 8.3 fl (7.4-10.4); Monocytes # 0.2 K/mm3 (0.1-1.0); Monocytes % 6.2 % (1.7-9.3); Neutrophils # 2.3 K/mm3 (1.8-7.8); Neutrophils % 70.3 % (37.0-80.0); Platelet Count 213 K/mm3 (142-424); Red Blood Count 3.11 M/mm3 (4.60-6.20); Red Cell Distribution Width 16.3 % (11.5-17.5); White Blood Count 3.3 K/mm3 (4.8-10.8)
[2023-09-06 11:16] LABS: Alanine Aminotransferase 21 U/L (12-78); Albumin Level 3.5 g/dl (3.5-5.0); Albumin/Globulin Ratio 1.1 (1.1-1.8); Alkaline Phosphatase 71 U/L (38-126); Anion Gap 12.8 mEq/L (5-15); Aspartate Amino Transferase 35 U/L (17-59); Bilirubin,Total 0.4 mg/dl (0.2-1.3); Blood Urea Nitrogen 14 mg/dl (9-20); Carbon Dioxide 24 mmol/L (22.0-30.0); Chloride 105 mmol/L (98-107); Creatinine Clearance Estimated 51 mL/min (50-200); Estimated Glomerular Filt Rate 133 ml/min (>60); GFR (African American) 161 ML/MIN (>60); Globulin 3.3 g/dL (1.3-3.2); Glucose 146 mg/dl (74-100); Potassium 3.8 mmoL/L (3.5-5.1); Sodium 138 mmol/L (136-145); Total Protein,Serum 6.8 g/dl (6.3-8.2)
[2023-09-06] MEDS: 0.9 % SODIUM CHLORIDE 100 ML 50 ML IV (11:28)
[2023-09-06 11:29] VITALS: BP 107/65; PULSE 105; RESP 20; TEMP 36.4; O2SAT 94
[2023-09-06] MEDS: LORATADINE 10MG TABLET 10 MG PO (11:29)
[2023-09-06] MEDS: FAMOTIDINE 20MG TABLET 20 MG (11:29)
[2023-09-06] MEDS: ONDANSETRON 4MG ODT 16 MG (11:29)
[2023-09-06] MEDS: DEXAMETHASONE 4MG TABLET 12 MG (11:29)
[2023-09-06 12:02] VITALS: BP 108/53; PULSE 105; RESP 20; O2SAT 94
[2023-09-06] MEDS: PACLITAXEL IV (12:02)
[2023-09-06] MEDS: WATER IV (12:02)
[2023-09-06] MEDS: DEXTROSE 5% IV (12:02)
[2023-09-06 12:32] VITALS: BP 98/53; PULSE 100; RESP 20; O2SAT 93
[2023-09-06 13:11] VITALS: BP 105/62; PULSE 98; RESP 20; O2SAT 94
[2023-09-06] MEDS: SODIUM CHLORIDE 0.9% IV (13:11)
[2023-09-06] MEDS: CARBOPLATIN IV (13:11)
[2023-09-06 13:55] VITALS: BP 111/71; PULSE 103; RESP 20; O2SAT 94
[2023-09-06] MEDS: SODIUM CHLORIDE 0.9% 10ML FLUSH SYRINGE 10 ML IV (15:14)
== END 2023-09-06 13:55 | disposition home or self-care (01) ==
LOC: INF 10:29
PROVIDERS: PCP Family Medicine; Visit Provider Internal Medicine Medical Oncology
DX: C34.11 Malignant neoplasm of upper lobe, right bronchus or lung (principal); Z79.899 Other long term (current) drug therapy
CPT/HCPCS: 80053; 85025; 96413; 96415; 96417; J9045; J9267

== ENCOUNTER 2023-09-13 10:49 | Outpatient (CLI) | payer MEDICARE, SELFPAY ==
[2023-09-13] VITALS (8 sets, daily range): BP systolic 97–129; BP diastolic 52–79; PULSE 62–68; RESP 18; TEMP 36.6; O2SAT 99; BMI 15.3
[2023-09-13 11:21] LABS: Eosinophils % 1.4 % (0.1-12.0); Hematocrit 33.4 % (42.0-52.0); Hemoglobin 10.7 g/dL (14.1-18.0); Lymphocytes # 0.3 K/mm3 (0.7-4.5); Lymphocytes % 9.1 % (10-50); Mean Corpuscular HGB Conc 31.9 g/dL (31.8-35.4); Mean Corpuscular Hemoglobin 33.1 pg (27.0-31.2); Mean Corpuscular Volume 103.7 fl (80-94); Monocytes # 0.2 K/mm3 (0.1-1.0); Monocytes % 4.6 % (1.7-9.3); Neutrophils # 2.7 K/mm3 (1.8-7.8); Neutrophils % 83.9 % (37.0-80.0); Platelet Count 211 K/mm3 (142-424); Red Blood Count 3.22 M/mm3 (4.60-6.20); Red Cell Distribution Width 17.8 % (11.5-17.5); White Blood Count 3.2 K/mm3 (4.8-10.8)
[2023-09-13 11:22] LABS: Chloride 103 mmol/L (98-107)
[2023-09-13 11:23] LABS: Sodium 135 mmol/L (136-145)
[2023-09-13 11:25] LABS: Alanine Aminotransferase 25 U/L (12-78); Albumin Level 3.8 g/dl (3.5-5.0); Albumin/Globulin Ratio 1.1 (1.1-1.8); Alkaline Phosphatase 71 U/L (38-126); Aspartate Amino Transferase 41 U/L (17-59); Bilirubin,Total 0.9 mg/dl (0.2-1.3); Blood Urea Nitrogen 20 mg/dl (9-20); Carbon Dioxide 23 mmol/L (22.0-30.0); Creatinine Clearance Estimated 51 mL/min (50-200); Estimated Glomerular Filt Rate 133 ml/min (>60); GFR (African American) 161 ML/MIN (>60); Globulin 3.5 g/dL (1.3-3.2); Total Protein,Serum 7.3 g/dl (6.3-8.2)
[2023-09-13 11:26] LABS: Calcium 9.4 mg/dl (8.4-10.2); Glucose 114 mg/dl (74-100)
[2023-09-13] MEDS: ONDANSETRON 4MG ODT 16 MG (11:40)
[2023-09-13] MEDS: DEXAMETHASONE 4MG TABLET 12 MG (11:40)
[2023-09-13] MEDS: FAMOTIDINE 20MG TABLET 20 MG (11:40)
[2023-09-13] MEDS: LORATADINE 10MG TABLET 10 MG PO (11:40)
[2023-09-13] MEDS: 0.9 % SODIUM CHLORIDE 100 ML 25 ML IV (11:40)
[2023-09-13] MEDS: WATER IV (12:14)
[2023-09-13] MEDS: PACLITAXEL IV (12:14)
[2023-09-13] MEDS: DEXTROSE 5% IV (12:14)
[2023-09-13] MEDS: CARBOPLATIN IV (13:27)
[2023-09-13] MEDS: SODIUM CHLORIDE 0.9% IV (13:27)
== END 2023-09-13 14:15 | disposition home or self-care (01) ==
LOC: INF 10:50
PROVIDERS: PCP Family Medicine; Visit Provider Internal Medicine Medical Oncology
DX: C34.11 Malignant neoplasm of upper lobe, right bronchus or lung (principal)
CPT/HCPCS: 80053; 85025; 96413; 96415; 96417; J9045; J9267

== ENCOUNTER 2023-09-21 10:51 | Outpatient (CLI) | payer MEDICARE, SELFPAY ==
[2023-09-21 10:55] VITALS: BMI 15.3
[2023-09-21 11:24] LABS: Basophils % 0.8 % (0.1-2.0); Eosinophils % 0.3 % (0.1-12.0); Hemoglobin 10.1 g/dL (14.1-18.0); Lymphocytes # 0.3 K/mm3 (0.7-4.5); Lymphocytes % 9.3 % (10-50); Mean Corpuscular HGB Conc 32.5 g/dL (31.8-35.4); Mean Corpuscular Hemoglobin 32.9 pg (27.0-31.2); Mean Corpuscular Volume 101.2 fl (80-94); Mean Platelet Volume 8.4 fl (7.4-10.4); Monocytes # 0.2 K/mm3 (0.1-1.0); Monocytes % 6.8 % (1.7-9.3); Neutrophils # 2.4 K/mm3 (1.8-7.8); Neutrophils % 82.8 % (37.0-80.0); Platelet Count 204 K/mm3 (142-424); Red Blood Count 3.06 M/mm3 (4.60-6.20); Red Cell Distribution Width 18.7 % (11.5-17.5); White Blood Count 2.9 K/mm3 (4.8-10.8)
[2023-09-21 11:27] LABS: Chloride 102 mmol/L (98-107); Sodium 139 mmol/L (136-145)
[2023-09-21 11:28] LABS: Potassium 3.7 mmoL/L (3.5-5.1)
[2023-09-21 11:30] LABS: Alanine Aminotransferase 31 U/L (12-78); Albumin Level 3.7 g/dl (3.5-5.0); Alkaline Phosphatase 59 U/L (38-126); Aspartate Amino Transferase 40 U/L (17-59); Bilirubin,Total 0.7 mg/dl (0.2-1.3); Blood Urea Nitrogen 23 mg/dl (9-20); Creatinine Clearance Estimated 51 mL/min (50-200); Estimated Glomerular Filt Rate 111 ml/min (>60); GFR (African American) 135 ML/MIN (>60)
[2023-09-21 11:31] LABS: Anion Gap 18.7 mEq/L (5-15); Calcium 9.4 mg/dl (8.4-10.2); Carbon Dioxide 22 mmol/L (22.0-30.0); Globulin 3.7 g/dL (1.3-3.2); Glucose 118 mg/dl (74-100); Total Protein,Serum 7.4 g/dl (6.3-8.2)
--- NOTE | 2023-09-21 12:57 | DIET.NUTRFU ---
Saw patient in infusion for weight loss, reported he has lost 17# in last couple months. He has completed 4-5 rounds of chemo and c/o no appetite. He is reportin that he is consuming 4-5 ensures/day but is getting tired of drinking them. Provided and review high calorie, high protein handout, suggested powder protein in everything, provided milkshake handout and suggested to rotate in a couple. Recommended a small snack every 2-3 hours. Always have food near him to snack on. He likes ice cream encouraged more blizzards. Denies N/V or constipation/diarrhea. revuiewed some appetite stimulates if continues to loose. Also provided contact information if he had any further concerns.
== END 2023-09-21 13:15 | disposition home or self-care (01) ==
LOC: INF 10:52
PROVIDERS: PCP Family Medicine; Visit Provider Internal Medicine Medical Oncology
DX: C34.11 Malignant neoplasm of upper lobe, right bronchus or lung (principal); Z79.899 Other long term (current) drug therapy
CPT/HCPCS: 36415; 80053; 85025

== ENCOUNTER 2023-09-25 17:24 | Inpatient (IN) | payer MEDICARE, SELFPAY ==
[2023-09-25] VITALS (8 sets, daily range): BP systolic 79–113; BP diastolic 40–60; PULSE 77–124; RESP 16–19; TEMP 36.5–37; O2SAT 94–96; BMI 17.2; BMI 15.0
--- NOTE | 2023-09-25 17:29 | XR_ITS ---
PROCEDURE INFORMATION: Exam: XR Chest Exam date and time: 09/25/2023 5:36 PM Age: 68 years old Clinical indication: Fever; Additional info: Fever, weak, ctx/rtx lung CA TECHNIQUE: Imaging protocol: Radiologic exam of the chest. Views: 1 view. COMPARISON: CT LUNG SCREENING 05/19/2023 2:15 PM FINDINGS: Lungs: Right apical cavity with surrounding opacities which may represent superimposed consolidation. Pleuroparenchymal scarring of the lung bases with subsegmental atelectasis is present without consolidations or pleural effusions that project above the diaphragm. Moderate emphysema. Pleural spaces: Unremarkable. No pleural effusion. No pneumothorax. Heart/Mediastinum: Multiple mediastinal calcified nodes unchanged from prior exam. Bones/joints: Unremarkable. IMPRESSION: 1. Right apical cavity with surrounding opacities which may represent superimposed consolidation. 2. Pleuroparenchymal scarring of the lung bases with subsegmental atelectasis is present without consolidations or pleural effusions that project above the diaphragm.
[2023-09-25 18:28] LABS: Basophils % 0.3 % (0.1-2.0); Eosinophils % 0.2 % (0.1-12.0); Lymphocytes # 0.3 K/mm3 (0.7-4.5); Lymphocytes % 6.2 % (10-50); Mean Corpuscular HGB Conc 32.5 g/dL (31.8-35.4); Mean Corpuscular Hemoglobin 33.1 pg (27.0-31.2); Mean Corpuscular Volume 101.7 fl (80-94); Mean Platelet Volume 8.9 fl (7.4-10.4); Monocytes # 0.3 K/mm3 (0.1-1.0); Neutrophils # 3.7 K/mm3 (1.8-7.8); Neutrophils % 86.3 % (37.0-80.0); Platelet Count 243 K/mm3 (142-424); Red Blood Count 2.73 M/mm3 (4.60-6.20); Red Cell Distribution Width 19.8 % (11.5-17.5); White Blood Count 4.3 K/mm3 (4.8-10.8)
--- NOTE | 2023-09-25 18:30 | ED_ITS ---
Discharge Plan Disposition Patient Disposition: Admitted Condition: Good Chief Complaint: Weakness Clinical Impressions Clinical Impression: Postobstructive pneumonia, Sepsis, Severe muscle deconditioning Discharge ED Provider: Jonathan Roberts General Adult HPI General Chief complaint: Weakness Stated complaint: phy ref- fever, cough, weak Time Seen by Provider: 09/25/23 17:27 Mode of Arrival: Wheelchair Source of Information: Patient and Spouse Limitations: No Limitations Description of Symptoms (Recalled from ER Triage Doc. by RN): pt presents to ED with c/o general feeling of unwell. pt does have history of lung cancer, but has recently took a break from treatments due to weight loss. smyptoms began today, confusion, cough, not eating well. History of Present Illness HPI narrative: Please note that above description of symptoms, in this electronic medical record under categorization of recalled from ER triage doctor by RN are reflective of an initial nursing assessment, however, is not reflective of my full history and physical exam that was personally taken and clarified. Consequentially, this preceding description of symptoms, which may include the patient's categorized chief complaint in the EMR, do not reflect my personal clinical impression, and the ultimate description of history of present illness and patient stated complaints should be deferred to this section of the note. Unless stated otherwise or congruent with this section of the note, additional signs, symptoms, or incongruence should be interpreted as inaccurate with my clinical impression. Related Data Allergies Allergy/AdvReac Type Severity Reaction Status Date / Time Iodinated Contrast Media Allergy Intermediate Hives Verified 09/21/23 11:14 [facility] Disclaimer: The information contained in this section may have been updated after the patient was seen, as this information can be updated by other users. Medical History Tobacco abuse disorder Tobacco abuse counseling COPD mixed type Mediastinal lymphadenopathy Hilar lymphadenopathy Multiple lung nodules on CT Smoking greater than 30 pack years Esophageal obstruction due to food impaction Surgical History History of colonoscopy History of eye surgery History of back surgery Family History Other Leukemia Lung cancer Social History Smoking Status: Current every day smoker how long ago did patient quit smokin weeks second hand exposure: Yes alcohol intake: never substance use type: denies use current occupational status: retired Travel in the last 8 weeks: None household members: spouse housing: house lives independently: No marital status: education level: high school service: No current occupational exposures/hazards: No caffeine: Yes firearms in home: No do you feel safe at home: Yes victim of physical abuse: No victim of emotional abuse: No victim of sexual abuse: No would you like helpful sources: No ROS Obtained: Yes All systems reviewed & no additional complaints except as documented Physical Exam General General appearance: alert, in no apparent distress and cachectic Head Head exam: atraumatic and normocephalic Eye Eye exam: Present normal appearance, PERRL and EOMI ENT ENT exam: Present mucous membranes dry Neck Neck exam: Present normal inspection, full ROM and trachea midline Respiratory Respiratory exam: Present normal lung sounds bilaterally; Absent respiratory distress, wheezes, stridor, accessory muscle use or prolonged expiratory phase Cardiovascular Cardiovascular exam: Present normal rhythm and tachycardia Abdominal Exam Abdominal exam: Present soft; Absent distention, tenderness, guarding, rebound or rigidity Extremities Exam Extremities exam: Absent edema Neurological Exam Neurological exam: Present alert, oriented X3, CN II-XII intact and normal gait; Absent motor sensory deficit Skin Skin exam: Present warm and dry; Absent diaphoresis or erythema Medical Decision Making Medical Records Medical records reviewed: Yes I reviewed the patient's medical records. Homero Inquiry Pt receiving controlled substance: No Homero was queried for this patient: No Vital Signs: 09/25/23 17:25 09/25/23 17:41 09/25/23 18:00 Temperature 98.6 F Temperature Source Oral Pulse Rate 117 H 107 H Pulse Rate [Left Radial] 124 H Respiratory Rate 19 Blood Pressure 79/40 L 85/44 L Blood Pressure [Right Arm] 79/40 L Blood Pressure Mean [Right Arm] 53 02 Sat by Pulse Oximetry 96 94 L 94 L Oxygen Delivery Method Room Air Room Air 09/25/23 18:18 09/25/23 18:30 Temperature Temperature Source Pulse Rate 105 H 101 H Pulse Rate [Left Radial] Respiratory Rate Blood Pressure 90/47 L 80/48 L Blood Pressure [Right Arm] Blood Pressure Mean [Right Arm] 02 Sat by Pulse Oximetry 94 L 96 Oxygen Delivery Method Room Air Room Air Lab Data Lab Results 09/25/23 18:12: WBC 4.3 L, RBC 2.73 L, Hgb 9.0 L, Hct 27.7 L, MCV 101.7 H, MCH 33.1 H, MCHC 32.5, RDW 19.8 H, Plt Count 243, MPV 8.9, Neut % (Auto) 86.3 H, L ymph % (Auto) 6.2 L, [place] % (Auto) 7.0, Eos % (Auto) 0.2, Baso % (Auto) 0.3, Neut # (Auto) 3.7, Lymph # (Auto) 0.3 L, [place] # (Auto) 0.3, Eos # (Auto) 0.0, Baso # (Auto) 0.0, Total Counted 100, Neutrophils % (Manual) 73, Band Neutrophils % 9.0 H, Lymphocytes % (Manual) 6 L, Monocytes % (Manual) 3, M etamyelocytes % 2.0 H, Myelocytes % 7 H, Nucleated RBCs 1, Platelet Estimate Normal, Hypochromasia 2+, Anisocytosis 2+, Macrocytosis 3+, Sodium 135 L, P otassium 3.4 L, Chloride 103, Carbon Dioxide 26, Anion Gap 9.4, BUN 19, Creatinine 0.70, Estimated Creat Clear 53, Estimated GFR 111, Est GFR ( Amer) 135, Glucose 98, Lactate 1.1, Calcium 8.9, Magnesium 1.5 L, Total Bilirubin 0.8, AST 21, ALT 18, Alkaline Phosphatase 53, Troponin I < 0.01, N T-Pro-B Natriuret Pep 623 H, Total Protein 6.2 L, Albumin 3.0 L, Globulin 3.2, A lbumin/Globulin Ratio 0.9 L, Procalcitonin 0.594 09/25/23 18:12 09/25/23 18:12 Orders (Tests/Meds): ED MEDICATIONS Generic Name Dose Route Start Last Admin Trade Name Freq PRN Reason Stop Dose Admin Miscellaneous 1 each 09/25/23 18:45 09/25/23 18:53 Vancomycin Consult Request NOTAPPLIC 10/25/23 18:44 1 each [facility] Administration Discontinued Medications Generic Name Dose Route Start Last Admin Trade Name Freq PRN Reason Stop Dose Admin Lactated Ringer's 1,630 mls @ 815 mls/hr 09/25/23 18:31 09/25/23 19:00 Lactated Ringer's 1000 Ml Bag 30 ml/kg infuse over 2 hr (1630 ml) 09/25/23 20:30 815 mls/hr IV Administration .Q2H ONE Piperacillin Sod/Tazobactam 50 mls @ 100 mls/hr 09/25/23 18:32 09/25/23 19:00 Sod 3.375 gm/ Sodium Chloride IV 09/25/23 19:01 100 mls/hr ONCE ONE Administration Vancomycin HCl 1,000 mg/ 250 mls @ 125 mls/hr 09/25/23 18:45 09/25/23 19:53 Sodium Chloride IV 09/25/23 20:44 125 mls/hr ONCE ONE Administration Magnesium Sulfate 2 gm in 50 mls @ 50 mls/hr 09/25/23 19:12 09/25/23 19:53 Magnesium Sulfate 2gm/50ml Premix IV 09/25/23 20:11 50 mls/hr ONCE ONE Administration ORDERS Category Date Time Status CT chest wo con Stat Cat Scan 09/25/23 19:13 Completed XR chest portable Stat Exams 09/25/23 17:29 Completed Complete Blood Count Auto Diff Stat Lab 09/25/23 18:12 Completed Comprehensive Metabolic Panel Stat Lab 09/25/23 18:12 Completed Lactic Acid Stat Lab 09/25/23 18:12 Completed Magnesium Stat Lab 09/25/23 18:12 Completed NT Pro Brain Natriuretic Pep. Stat Lab 09/25/23 18:12 Completed Procalcitonin Stat Lab 09/25/23 18:12 Completed Troponin I Q3H Lab 09/25/23 20:30 Ordered Troponin I Q3H Lab 09/25/23 23:30 Ordered Troponin I Stat Lab 09/25/23 18:12 Completed Urinalysis and Microscopic Stat Lab 09/25/23 17:30 Ordered Blood Culture Stat Micro 09/25/23 18:16 Received Medical Decision Narrative: 68-year-old male history of COPD, lung cancer secondary to smoking not currently on home oxygen, but receiving chemo and radiation (last received almost 2 weeks prior to this visit) presenting with generalized weakness. No other symptoms. No shortness of breath, nausea, vomiting, fevers, chills, dysuria, diarrhea, chest pain, abdominal pain, or any other concerns. He states that he has had a worsening cough over the last couple of days, but it is nonproductive and only minimally worse. Has not been eating or drinking almost at all over the past couple weeks, so chemo and radiation were held. History was obtained via conversation with patient and . On arrival, patient hemodynamically stable, alert, oriented x4, appropriate, GCS 15, moving all extremities spontaneously, pupils equal and reactive to light. Full physical exam performed and significant for tachycardic, moderately hypotensive, but mentating. Cardiopulmonary exam within normal limits, no focal sounds. No evidence of murmur, gallop, rub. Pulses equal and symmetric bilateral upper and lower extremities. Abdomen soft, nontender, nondistended. Patient is acutely on chronically ill, cachectic. Differential includes malnutrition, pneumonia, sepsis, pneumothorax, ACS, GA, deconditioning, among others. Patient was given sepsis fluid bolus, Zosyn, vancomycin for symptomatic management and correction of underlying abnormalities. Workup independently interpreted and significant for mild leukopenia 4.3, not neutropenic, relatively lymphopenic. Nonactionable overall. Chemistry largely nonactionable. Magnesium low at 1.5, this was repleted IV. Troponin negative, BNP nonactionable. Chest x-ray with concern for cavitary lesion right upper lobe, this is likely secondary to new infection versus secondary effects of radiation. CT chest with similar findings, as well as new left lower lobe lung nodule.. See radiology read for full review of final results. Results were relayed to patient and family, they were agreeable to admission for further workup with pulmonology. Patient's family doctor team was contacted and case was discussed at length, patient placed on prophylactic Lovenox, fluids at a rate, admitted for further care. Because patient high risk for clinical decompensation, deemed appropriate for inpatient admission. Results were relayed to patient who voiced understanding and patient was agreeable to inpatient admission and management. Patient was admitted to the hospital for further definitive management. Prize Coordinator disclaimer Much of this encounter note is an electronic janitor custodian spoken language to printed text. Electronic janitor custodian of the spoken language may permit errors. Although I have reviewed the note, some errors may still exist. Critical Care Critical Care Time Critical Care Time: Yes (ID) Attestation: On 09/25/23, the high probability of a clinically significant, sudden or life threatening deterioration of the following system(s) required my full and direct attention, intervention and personal management. The time I documented below is in addition to time spent performing reported procedures but includes the following listed in this critical care notation. Total Time Total Critical Care Time: 45
[2023-09-25 18:33] LABS: Hematocrit 27.7 % (42.0-52.0); MANUAL DIFFERENTIAL MANUAL DIFFERENTIAL (MANUAL DIFF)
[2023-09-25 18:35] LABS: Chloride 103 mmol/L (98-107); Potassium 3.4 mmoL/L (3.5-5.1); Sodium 135 mmol/L (136-145)
[2023-09-25 18:38] LABS: Alanine Aminotransferase 18 U/L (12-78); Albumin/Globulin Ratio 0.9 (1.1-1.8); Alkaline Phosphatase 53 U/L (38-126); Anion Gap 9.4 mEq/L (5-15); Aspartate Amino Transferase 21 U/L (17-59); Bilirubin,Total 0.8 mg/dl (0.2-1.3); Blood Urea Nitrogen 19 mg/dl (9-20); Calcium 8.9 mg/dl (8.4-10.2); Carbon Dioxide 26 mmol/L (22.0-30.0); Creatinine Clearance Estimated 53 mL/min (50-200); Estimated Glomerular Filt Rate 111 ml/min (>60); GFR (African American) 135 ML/MIN (>60); Globulin 3.2 g/dL (1.3-3.2); Glucose 98 mg/dl (74-100); Lactic Acid 1.1 mmol/L (0.7-2.1); Magnesium 1.5 mg/dl (1.6-2.3); Total Protein,Serum 6.2 g/dl (6.3-8.2)
[2023-09-25 18:47] LABS: NT Pro Brain Natriuretic Pep. 623 pg/mL (0-125)
[2023-09-25] MEDS: VANCOMYCIN CONSULT REQUEST 1 EACH NOTAPPLIC (18:53)
[2023-09-25 18:57] LABS: Lymphocytes % 6 % (10-50); Monocytes % 3 % (2-9); Neutrophils % 73 % (42-76); Nucleated Red Blood Cells 1; Total Cells Counted 100
[2023-09-25 18:58] LABS: Anisocytosis 2+; Hypochromasia 2+; Macrocytosis 3+; Platelet Estimate Normal; Troponin I < 0.01 ng/ml (0.00-0.034)
[2023-09-25] MEDS: LACTATED RINGERS 815 ML IV (19:00)
[2023-09-25] MEDS: PIPERACILLIN/TAZO 3.375 GM in 0.9 % SODIUM CHLORIDE 50 ML IV (19:00)
--- NOTE | 2023-09-25 19:13 | CT_ITS ---
PROCEDURE INFORMATION: Exam: CT Chest Without Contrast; Diagnostic Exam date and time: 09/25/2023 7:27 PM Age: 68 years old Clinical indication: Other: Lung cancer; Additional info: Concern for cavitary lesion, septic TECHNIQUE: Imaging protocol: Diagnostic computed tomography of the chest without contrast. Radiation optimization: All CT scans at this facility use at least one of these dose optimization techniques: automated exposure control; mA and/or kV adjustment per patient size (includes targeted exams where dose is matched to clinical indication); or iterative reconstruction. COMPARISON: CT LUNG SCREENING 05/19/2023 2:15 PM FINDINGS: Lungs: Right apical cavitary mass measuring 3.8 x 2.9 x 3.2 cm with posterior inferior centrilobular opacities in thickening of the bronchi which could represent superimposed pneumonia. New right lower lobe superior segment 1.6 x 1.8 x 1.6 cm nodule with surrounding opacities could represent satellite malignant nodule versus focal pneumonia. There are moderate centrilobular emphysematous changes of the lungs with an apical gradient. Pleural spaces: Left lower lobe calcified pleural plaques unchanged from prior exam. Heart: Unremarkable. No cardiomegaly. No pericardial effusion. Coronary arteries: Moderate three-vessel calcific atherosclerotic disease of the coronary arteries. Lymph nodes: Mediastinal and hilar calcified nodes likely related to prior granulomatous process. Vasculature: There is moderate calcific atherosclerotic disease of the thoracic aorta without aneurysmal dilatation. Spleen: Multiple benign-appearing calcific densities of the spleen. Bones/joints: Healing left 7th rib fracture. Soft tissues: Unremarkable. IMPRESSION: 1. Right apical cavitary mass measuring 3.8 x 2.9 x 3.2 cm with posterior inferior centrilobular opacities in thickening of the bronchi which could represent superimposed pneumonia. 2. New right lower lobe superior segment 1.6 x 1.8 x 1.6 cm nodule with surrounding opacities could represent satellite malignant nodule versus focal pneumonia.
[2023-09-25 19:29] LABS: Procalcitonin 0.594 ng/mL (0.0-2.0)
[2023-09-25 19:30] LABS: Myelocytes % 7 (0-1)
[2023-09-25] MEDS: VANCOMYCIN HCL 1,000 MG in 0.9 % SODIUM CHLORIDE 250 ML 125 MG IV (19:53)
[2023-09-25] MEDS: MAGNESIUM SULFATE IN WATER 2 GM/50 ML PIGGYBACK IV (19:53)
--- NOTE | 2023-09-25 20:13 | PC.NURSE ---
notified house of admit: post obst pneumonia, sepsis, deconditioning. diane
--- NOTE | 2023-09-25 21:00 | ECG_ITS ---
APPROVED REPORT Exam: Resting ECG HR:93 bpm ECG Measurements Heart Rate 93 AXES KS 134 P 81 QRSd 94 QRS 83 QT 373 T 83 QTc 423 Conclusion SINUS RHYTHM Electronically signed by : OKSANA COTE, 09/25/2023 22:41:11
[2023-09-25 22:00] LABS: Troponin I < 0.01 ng/ml (0.00-0.034)
[2023-09-25] MEDS: LACTATED RINGERS 1000ML 1,000 ML 150 ML IV (22:50)
[2023-09-25] MEDS: ENOXAPARIN 40MG/0.4ML SYRINGE 40 MG SQ (23:23)
[2023-09-25] MEDS: OXYCODONE 5MG IMMEDIATE RELEASE TABLET 5 MG PO (23:49)
[2023-09-25] MEDS: GUAIFENESIN/DEXTROMETHORPHAN 200MG/20MG 10ML UDC 10 ML PO (23:49)
[2023-09-26] VITALS (11 sets, daily range): BP systolic 88–105; BP diastolic 42–49; PULSE 72–100; RESP 16–20; TEMP 36.7–37.4; O2SAT 91–96; BMI 15.0
[2023-09-26 00:05] LABS: Troponin I < 0.01 ng/ml (0.00-0.034)
--- NOTE | 2023-09-26 00:05 | PC.WOUNDNOTE ---
left hip unstageable coccyx unstageable
[2023-09-26] MEDS: LACTATED RINGERS 1000ML 1,000 ML 150 ML IV ×3 (02:27→19:32)
--- NOTE | 2023-09-26 05:38 | PC.NURSE ---
pt admitted for pneumonia, sepsis and de-conditioning. pt alert and oriented x3, nsr on monitor, maintaining sats on room air, inpatient auditor cough, robitussin given for cough, awaiting urine sample and sputum sample, pt weak. decubitus ulcers to coccyx and l hip, pictures taken and mepilex applied and wound care consult placed.
[2023-09-26 07:30] LABS: Microscopic, Urine URINE MICROSCOPIC (MICROSCOPIC)
[2023-09-26 07:36] LABS: Appearance,Urine CLEAR (Clear); Bilirubin,Urine Negative (Negative); Blood, Urine Negative (Negative); Color,Urine YELLOW (Yellow); Glucose,Urine (UA) Negative (Negative); Ketones,Urine Negative (Negative); Leukocyte Esterase,Urine Negative (Negative); Nitrate,Urine Negative (Negative); Protein,Urine Negative (Negative)
--- NOTE | 2023-09-26 07:39 | P.CONPHA_ITS ---
Pharmacy Consult Date: 09/26/23 Time: 07:39 Referring provider: DR. COTE Reason for Consult:: VANCOMYCIN DOSING Allergies Allergy/AdvReac Type Severity Reaction Status Date / Time Iodinated Contrast Media Allergy Intermediate Hives Verified 09/21/23 11:14 Home Medications Medication Instructions Recorded Confirmed Type diazepam 10 mg tablet 10 mg PO TID PRN Anxiety 09/25/23 09/25/23 History gabapentin 600 mg tablet 600 mg PO QID 09/25/23 09/25/23 History levocetirizine 5 mg tablet 5 mg PO DAILY 09/25/23 09/25/23 History olanzapine 2.5 mg tablet 2.5 mg PO DAILY 09/25/23 09/25/23 History oxycodone 5 mg tablet 5 mg PO Q6H PRN Pain (Scale Score 09/25/23 09/25/23 History 7-10) prochlorperazine maleate 10 mg 10 mg PO Q6 PRN Nausea And Vomiting 09/25/23 09/25/23 History tablet (Compazine) sulindac 200 mg tablet 200 mg PO BID 09/25/23 09/25/23 History New Prescriptions to Start Prescriptions: Height: 1.78 m Weight: 47.582 kg Laboratory Results:: Laboratory Results - last 24 hr 09/25/23 18:12: WBC 4.3 L, RBC 2.73 L, Hgb 9.0 L, Hct 27.7 L, MCV 101.7 H, MCH 33.1 H, MCHC 32.5, RDW 19.8 H, Plt Count 243, MPV 8.9, Neut % (Auto) 86.3 H, Lymph % (Auto) 6.2 L, [place] % (Auto) 7.0, Eos % (Auto) 0.2, Baso % (Auto) 0.3, Neut # (Auto) 3.7, Lymph # (Auto) 0.3 L, [place] # (Auto) 0.3, Eos # (Auto) 0.0, Baso # (Auto) 0.0, Total Counted 100, Neutrophils % (Manual) 73, Band Neutro phils % 9.0 H, Lymphocytes % (Manual) 6 L, Monocytes % (Manual) 3, Metamyelocytes % 2.0 H, Myelocytes % 7 H, Nucleated RBCs 1, Platelet Estimate Normal, Hypochromasia 2+, Anisocytosis 2+, Macrocytosis 3+, Sodium 135 L, Potassium 3.4 L, Chloride 103, Carbon Dioxide 26, Anion Gap 9.4, BUN 19, Creatinine 0.70, Estimated Creat Clear 53, Estimated GFR 111, Est GFR ( Amer) 135, Glucose 98, Lactate 1.1, Calcium 8.9, Magnesium 1.5 L, Total Bilirubi n 0.8, AST 21, ALT 18, Alkaline Phosphatase 53, Troponin I < 0.01, NT-Pro-B Natriuret Pep 623 H, Total Protein 6.2 L, Albumin 3.0 L, Globulin 3.2, Albumin/Globulin Ratio 0.9 L, Procalcitonin 0.594 09/25/23 21:30: Troponin I < 0.01 09/25/23 23:35: Troponin I < 0.01 Medical History: Medical History (Updated 09/25/23 @ 22:18 by Mary Jay RN) Lung cancer Tobacco abuse disorder Tobacco abuse counseling COPD mixed type Mediastinal lymphadenopathy Hilar lymphadenopathy Multiple lung nodules on CT Smoking greater than 30 pack years Esophageal obstruction due to food impaction Assessment and Plan Assessment and plan all Dx Assessment and Plan for all problems:: Pharmacokinetic dosing service Objective: Patient: Floor: Age: 68 yo Serum creatinine: 0.70 mg/dL Height: 70.1 Inches Weight (kg): 47.6 Assessment: IBW (kg): 73.23 Dosing wt(kg): 47.6 Estimated Creatinine clearance (ml/min): 66.1 CRCL method: Cockcroft and Gault using ibw(default). Drug selected: Vancomycin Loading dose (mg): Vd (liters): 38.1 (factor used: 0.8 L/kg) Elbert (hr-1): 0.059 Half life (hrs): 11.75 CLvanco=?? 2.248 L/hr Recommended dose: 1000 mg Interval: 18 hrs Infusion time (hrs): 2.0 Predicted peak (mcg/mL): 37.8 Predicted trough (mcg/mL): 14.71 Total body weight is being used for vancomycin dosing. Recommendations: Give Vancomycin 1000 mg q 18 hrs with an expected Cpeak of 37.8 mcg/ml and an expected Ctrough of 14.71 mcg/ml AUC 0-24 /RAFAT Data: RAFAT 0.5 mcg/mL:?? AUC/RAFAT:? 1186.2 RAFAT 1.0 mcg/mL:?? AUC/RAFAT:? 593.1 --------- RAFAT 1.5 mcg/mL:?? AUC/RAFAT:? 395.4 RAFAT 2.0 mcg/mL:?? AUC/RAFAT:? 296.6 Thank you for the consult, will continue to follow. -FLORIDALMA RUIZ, ROBIND
--- NOTE | 2023-09-26 08:15 | HMH.PHAINT1 ---
Pharmacy Intervention Comments: MEDICATION RECONCILIATION COMPLETED ON PATIENT USING EXTERNAL FILL HISTORY FROM PHARMACY. -FLORIDALMA RUIZ, ROBIND
[2023-09-26 08:58] LABS: Bacteria,Urine Trace /lpf; Squamous Epithelial Cell,Urine Occasional #/hpf (0-5); WBC,Urine Occasional #/hpf (0-3)
[2023-09-26] MEDS: POTASSIUM CHLORIDE 20MEQ TAB 20 MEQ PO ×2 (08:58→20:57)
--- NOTE | 2023-09-26 08:58 | EXP.HP ---
History of Present Illness *Admission Date: 09/25/23 *History of present illness: Mr. Magallon is a 68-year-old male patient with a history of tobacco use disorder, glaucoma, chronic back pain, and carcinoma of the right lung being followed by Dr. Acharya, oncology and receiving radiochemotherapy treatment. Patient states he developed a fever yesterday and his made him come to the hospital. He is normally not a very good eater and has been eating as usual. He describes in addition to the fever a congested, sometimes productive cough. He can ambulate only briefly with his walker. Below is documentation from the ER admission. Medical Decision Narrative: 68-year-old male history of COPD, lung cancer secondary to smoking not currently on home oxygen, but receiving chemo and radiation (last received almost 2 weeks prior to this visit) presenting with generalized weakness. No other symptoms. No shortness of breath, nausea, vomiting, fevers, chills, dysuria, diarrhea, chest pain, abdominal pain, or any other concerns. He states that he has had a worsening cough over the last couple of days, but it is nonproductive and only minimally worse. Has not been eating or drinking almost at all over the past couple weeks, so chemo and radiation were held. History was obtained via conversation with patient and . On arrival, patient hemodynamically stable, alert, oriented x4, appropriate, GCS 15, moving all extremities spontaneously, pupils equal and reactive to light. Full physical exam performed and significant for tachycardic, moderately hypotensive, but mentating. Cardiopulmonary exam within normal limits, no focal sounds. No evidence of murmur, gallop, rub. Pulses equal and symmetric bilateral upper and lower extremities. Abdomen soft, nontender, nondistended. Patient is acutely on chronically ill, cachectic. Differential includes malnutrition, pneumonia, sepsis, pneumothorax, ACS, VA, deconditioning, among others. Patient was given sepsis fluid bolus, Zosyn, vancomycin for symptomatic management and correction of underlying abnormalities. Workup independently interpreted and significant for mild leukopenia 4.3, not neutropenic, relatively lymphopenic. Nonactionable overall. Chemistry largely nonactionable. Magnesium low at 1.5, this was repleted IV. Troponin negative, BNP nonactionable. Chest x-ray with concern for cavitary lesion right upper lobe, this is likely secondary to new infection versus secondary effects of radiation. CT chest with similar findings, as well as new left lower lobe lung nodule.. See radiology read for full review of final results. Results were relayed to patient and family, they were agreeable to admission for further workup with pulmonology. Patient's family doctor team was contacted and case was discussed at length, patient placed on prophylactic Lovenox, fluids at a rate, admitted for further care. Because patient high risk for clinical decompensation, deemed appropriate for inpatient admission. Results were relayed to patient who voiced understanding and patient was agreeable to inpatient admission and management. Patient was admitted to the hospital for further definitive management. This a.m. patient denies chest pain and shortness of breath. He states he does have some occasional pain in the right side of his chest. He is trying to eat breakfast which consisted pudding and male. He then requested a milkshake which she is now drinking. He states he did sleep some during the night. [facility] Disclaimer: The information contained in this section may have been updated after the patient was seen, as this information can be updated by other users. Medical History (Updated 09/26/23 @ 09:23 by Ame Spangler APRN) Lung cancer Tobacco abuse disorder Tobacco abuse counseling COPD mixed type Mediastinal lymphadenopathy Hilar lymphadenopathy Multiple lung nodules on CT Smoking greater than 30 pack years Esophageal obstruction due to food impaction Surgical History History of colonoscopy History of eye surgery History of back surgery Family History Other Leukemia Lung cancer Social History Smoking Status: Current every day smoker how long ago did patient quit smokin weeks second hand exposure: Yes alcohol intake: never substance use type: denies use current occupational status: retired Travel in the last 8 weeks: None household members: spouse housing: house lives independently: No marital status: education level: high school service: No current occupational exposures/hazards: No caffeine: Yes firearms in home: No do you feel safe at home: Yes victim of physical abuse: No victim of emotional abuse: No victim of sexual abuse: No would you like helpful sources: No Review of Systems Constitutional Constitutional: Reports fever(s), Reports frequent falls, Reports headache(s), Reports weakness and Reports weight loss Eyes Eyes: Denies change in vision ENT Ears, Nose, Mouth, and Throat: Denies otalgia, Reports headache(s) and Denies sore throat *Cardiovascular Cardiovascular: Denies chest pain and Denies dyspnea *Respiratory Respiratory: Reports cough (Sometimes productive), Denies dyspnea and Denies hemoptysis *Gastrointestinal Gastrointestinal: Denies abdominal pain, Denies heartburn, Denies nausea and Denies vomiting *Genitourinary Genitourinary: Denies difficulty urinating *Musculoskeletal Musculoskeletal: Denies abnormal gait (Does use a walker) and Reports muscle weakness *Neurologic Neurologic: Denies abnormal gait (Does use a walker), Reports frequent falls, Reports headache(s) and Reports weakness Meds Home Medications and Allergies Home Medications Medication Instructions Recorded Confirmed Type diazepam 10 mg tablet 10 mg PO TIDP PRN Anxiety 09/25/23 09/26/23 History gabapentin 600 mg tablet 600 mg PO QID 09/25/23 09/26/23 History levocetirizine 5 mg tablet 5 mg PO DAILY 09/25/23 09/26/23 History olanzapine 2.5 mg tablet 2.5 mg PO DAILY 09/25/23 09/26/23 History oxycodone 5 mg tablet 5 mg PO Q6HP PRN Severe Pain 09/25/23 09/26/23 History (Scale Score 7-10) prochlorperazine maleate 10 mg 10 mg PO Q6HP PRN Nausea And 09/25/23 09/26/23 History tablet (Compazine) Vomiting sulindac 200 mg tablet 200 mg PO BID 09/25/23 09/26/23 History dexamethasone 4 mg tablet 4 mg PO BID 09/26/23 09/26/23 History New Prescriptions to Start Prescriptions: Allergies Allergy/AdvReac Type Severity Reaction Status Date / Time Iodinated Contrast Media Allergy Intermediate Hives Verified 09/21/23 11:14 Exam Data for Last 24 hours Vital signs and Labs for Last 24 Hours: Temp Pulse Resp BP Pulse Ox O2 Del Method 99.4 F 100 H 18 105/44 L 96 Room Air 09/26/23 07:22 09/26/23 08:00 09/26/23 07:22 09/26/23 07:22 09/26/23 07:22 09/26/23 07:22 Laboratory Results - last 24 hr 09/25/23 18:12: WBC 4.3 L, RBC 2.73 L, Hgb 9.0 L, Hct 27.7 L, MCV 101.7 H, MCH 33.1 H, MCHC 32.5, RDW 19.8 H, Plt Count 243, MPV 8.9, Neut % (Auto) 86.3 H, Lymph % (Auto) 6.2 L, [place] % (Auto) 7.0, Eos % (Auto) 0.2, Baso % (Auto) 0.3, Neut # (Auto) 3.7, Lymph # (Auto) 0.3 L, [place] # (Auto) 0.3, Eos # (Auto) 0.0, Baso # (Auto) 0.0, Total Counted 100, Neutrophils % (Manual) 73, Band Neutrophils % 9.0 H, Lymphocytes % (Manual) 6 L, Monocytes % (Manual) 3, Metamyelocytes % 2.0 H, Myelocytes % 7 H, Nucleated RBCs 1, Platelet Estimate Normal, Hypochromasia 2+, Anisocytosis 2+, Macrocytosis 3+, Sodium 135 L, Potassium 3.4 L, Chloride 103, Carbon Dioxide 26, Anion Gap 9.4, BUN 19, Creatinine 0.70, Estimated Creat Clear 53, Estimated GFR 111, Est GFR ( Amer) 135, Glucose 98, Lactate 1.1, Calcium 8.9, Magnesium 1.5 L, Total Bilirubin 0.8, AST 21, ALT 18, Alkaline Phosphatase 53, Troponin I < 0.01, NT-Pro-B Natriuret Pep 623 H, Total Protein 6.2 L, Albumin 3.0 L, Globulin 3.2, Albumin/Globulin Ratio 0.9 L, Procalcitonin 0.594 09/25/23 21:30: Troponin I < 0.01 09/25/23 23:35: Troponin I < 0.01 09/26/23 07:17: Urine Color Yellow, Urine Appearance Clear, Urine pH 8.0, Ur Specific [place] 1.020, Urine Protein Negative, Urine Glucose (UA) Negative, Urine Ketones Negative, Urine Blood Negative, Urine Nitrate Negative, Urine Bilirubin Negative, Urine Urobilinogen 4.0, Ur Leukocyte Esterase Negative, Urine RBC None, Urine WBC Occasional, Ur Squamous Epith Cells Occasional, Urine Bacteria Trace I & O for Last 24 hours: Intake & Output 09/23/23 09/24/23 09/25/23 09/26/23 11:59 11:59 11:59 11:59 Intake Total 2634 / 2634 Output Total 725 / 725 Balance 1908 / 1908 Weight 104 lb 14.4 oz Constitutional Constitutional: no acute distress and cachectic *Routine HEENT Exam Head: Present normocephalic and atraumatic Eye: Present PERRL; Absent conjunctival icterus, scleral injection or conjunctivae pink ENT: Present mucous membranes dry *Routine Neck Exam Neck: Present supple and full ROM; Absent carotid bruit, lymphadenopathy or thyromegaly *Routine Respiratory Exam Respiratory: Present rhonchi (Bilaterally) *Routine Cardiovascular Exam Cardiovascular: Present RRR (70/min) *Routine Abdominal Exam Abdominal: Present soft and normoactive bowel sounds; Absent tenderness or distended *Routine Rectal Exam Rectal:: deferred *Routine Genitalia Exam Genitalia:: deferred *Routine Extremities Exam Extremities: Present full ROM; Absent edema or calf tenderness *Routine Neurological Exam Neurological: Present alert and oriented X3 Assessment and Plan *Assessment and plan (1) Severe muscle deconditioning: Status: Acute Category: Medical Code(s): R29.898 - Other symptoms and signs involving the musculoskeletal system (2) Postobstructive pneumonia: Status: Acute Category: Medical Code(s): J18.9 - Pneumonia, unspecified organism (3) Parotid nodule: Status: Acute Category: Medical Code(s): K11.8 - Other diseases of salivary glands (4) Malignant neoplasm of right upper lobe of lung: Status: Acute Category: Medical Code(s): C34.11 - Malignant neoplasm of upper lobe, right bronchus or lung (5) COPD mixed type: Status: Chronic Category: Medical Code(s): J44.9 - Chronic obstructive pulmonary disease, unspecified (6) Multiple lung nodules on CT: Status: Chronic Category: Medical Code(s): R91.8 - Other nonspecific abnormal finding of lung field (7) Smoking greater than 30 pack years: Status: Chronic Category: Social Hx Code(s): F17.210 - Nicotine dependence, cigarettes, uncomplicated (8) Severe protein-calorie malnutrition: Status: Acute Category: Medical Code(s): E43 - Unspecified severe protein-calorie malnutrition Plan IV fluids. Antibiotics and DuoNebs for pneumonia. Dietary and physical therapy consulted. Pulmonary consult. Was started on Megace as per pharmacy. Some of home meds ordered. Patient was also seen by Dr. Lanza this a.[email or web address]
[2023-09-26] MEDS: MEGESTROL ACETATE 400 MG/10 ML PO (09:50)
[2023-09-26] MEDS: IPRATROPIUM/ALBUTEROL 3 ML NEB IH ×3 (10:04→19:01)
[2023-09-26] MEDS: SODIUM CHLORIDE 3% 15ML NEB 3 ML IH (10:04)
--- NOTE | 2023-09-26 10:13 | P.CONS_ITS ---
History of Present Illness History of present illness: Mr. Magallon is a 68-year-old male smoker greater than [id number] smoking cigars a diagnosis of COPD lung nodules and lymphadenopathy, recent diagnosis of stage IIIB adenocarcinoma Lung currently following with [facility] oncology currently undergoing chemoradiation Presented to the ER complaining of generalized weakness and fatigue. He admits chronic/worsening cough in the last 4-5 days, not associated with any subjective fevers chills/worsening productive phlegm. [facility] Disclaimer: The information contained in this section may have been updated after the patient was seen, as this information can be updated by other users. Medical History (Updated 09/26/23 @ 12:39 by Jere Olivares MD) Pneumonia Dyspnea on exertion Lung cancer Tobacco abuse disorder Tobacco abuse counseling COPD mixed type Mediastinal lymphadenopathy Hilar lymphadenopathy Multiple lung nodules on CT Smoking greater than 30 pack years Esophageal obstruction due to food impaction Surgical History History of colonoscopy History of eye surgery History of back surgery Family History Other Leukemia Lung cancer Social History Smoking Status: Current every day smoker how long ago did patient quit smokin weeks second hand exposure: Yes alcohol intake: never substance use type: denies use current occupational status: retired Travel in the last 8 weeks: None household members: spouse housing: house lives independently: No marital status: education level: high school service: No current occupational exposures/hazards: No caffeine: Yes firearms in home: No do you feel safe at home: Yes victim of physical abuse: No victim of emotional abuse: No victim of sexual abuse: No would you like helpful sources: No Review of Systems Constitutional Constitutional: Reports fatigue, Reports frequent falls, Reports headache(s), Reports lethargy, Reports weakness and Reports weight loss Eyes Eyes: Denies eye discharge, Denies dry eyes, Denies irritation and Denies itchy eyes ENT Ears, Nose, Mouth, and Throat: Reports headache(s), Denies lip swelling and Denies throat swelling *Cardiovascular Cardiovascular: Reports dyspnea and Reports dyspnea on exertion *Respiratory Respiratory: Reports chest congestion, Reports cough, Reports dyspnea, Reports dyspnea on exertion, Denies excessive phlegm production, Denies hemoptysis, Denies pain on inspiration and Denies wheezing *Gastrointestinal Gastrointestinal: Denies abdominal pain, Denies belching and Denies cramping *Musculoskeletal Musculoskeletal: Denies abnormal gait (Does use a walker) *Neurologic Neurologic: Denies abnormal gait (Does use a walker), Reports frequent falls, Reports headache(s) and Reports weakness Psychiatric Psychiatric: Denies homicidal ideation and Denies suicidal ideation Endocrine Endocrine: Reports fatigue and Denies heat intolerance Hematologic/Lymphatic Hematologic/Lymphatic: Denies easy bleeding and Denies lymphadenopathy Allergic/Immunologic Allergic/Immunologic: Denies itchy eyes, Denies lip swelling, Denies throat swelling and Denies wheezing Pulmonology Exam Inpatient Vital signs and Labs for Last 24 Hours: Temp Pulse Resp BP Pulse Ox O2 Del Method 99.4 F 77 18 105/44 L 96 Room Air 09/26/23 07:22 09/26/23 10:09 09/26/23 10:09 09/26/23 07:22 09/26/23 07:22 09/26/23 09:02 Laboratory Results - last 24 hr 09/25/23 18:12: WBC 4.3 L, RBC 2.73 L, Hgb 9.0 L, Hct 27.7 L, MCV 101.7 H, MCH 33.1 H, MCHC 32.5, RDW 19.8 H, Plt Count 243, MPV 8.9, Neut % (Auto) 86.3 H, L ymph % (Auto) 6.2 L, [place] % (Auto) 7.0, Eos % (Auto) 0.2, Baso % (Auto) 0.3, Neut # (Auto) 3.7, Lymph # (Auto) 0.3 L, [place] # (Auto) 0.3, Eos # (Auto) 0.0, Baso # (Auto) 0.0, Total Counted 100, Neutrophils % (Manual) 73, Band Neutrophils % 9.0 H, Lymphocytes % (Manual) 6 L, Monocytes % (Manual) 3, M etamyelocytes % 2.0 H, Myelocytes % 7 H, Nucleated RBCs 1, Platelet Estimate Normal, Hypochromasia 2+, Anisocytosis 2+, Macrocytosis 3+, Sodium 135 L, P otassium 3.4 L, Chloride 103, Carbon Dioxide 26, Anion Gap 9.4, BUN 19, Creatinine 0.70, Estimated Creat Clear 53, Estimated GFR 111, Est GFR ( Amer) 135, Glucose 98, Lactate 1.1, Calcium 8.9, Magnesium 1.5 L, Total Bilirubin 0.8, AST 21, ALT 18, Alkaline Phosphatase 53, Troponin I < 0.01, N T-Pro-B Natriuret Pep 623 H, Total Protein 6.2 L, Albumin 3.0 L, Globulin 3.2, A lbumin/Globulin Ratio 0.9 L, Procalcitonin 0.594 09/25/23 21:30: Troponin I < 0.01 09/25/23 23:35: Troponin I < 0.01 09/26/23 07:17: Urine Color Yellow, Urine Appearance Clear, Urine pH 8.0, Ur Specific [place] 1.020, Urine Protein Negative, Urine Glucose (UA) Negative, Urine Ketones Negative, Urine Blood Negative, Urine Nitrate Negative, Urine Bilirubin Negative, Urine Urobilinogen 4.0, Ur Leukocyte Esterase Negative, Urine RBC None, Urine WBC Occasional, Ur Squamous Epith Cells Occasional, Urine Bacteria Trace I & O for Labs for Last 24 Hours: Intake & Output 09/23/23 09/24/23 09/25/23 09/26/23 23:59 23:59 23:59 23:59 Intake Total 1700 / 1700 1414 / 1414 Output Total 600 / 600 125 / 125 Balance 1100 / 1100 1289 / 1289 Weight 104 lb 14.4 oz 104 lb 14.335 oz Constitutional: Present moderate distress Head: Present normocephalic and atraumatic ENT: Present normal exam, normal oropharynx and mucous membranes moist Neck: Present normal inspection and full ROM Respiratory: Present respiratory distress and able to speak in complete sentences; Absent wheezes or crackles Cardiac: Present S1/S2, Tachycardia and radial pulses present GI: Present soft and distention; Absent tenderness or guarding Skin: Present intact; Absent cyanosis or jaundice Neuro: Present alert, awake and oriented x 3 Extremities: Present normal inspection; Absent clubbing or cyanosis Psychiatric: Present normal affect and cooperative Meds Home Medications and Allergies Home Medications Medication Instructions Recorded Confirmed Type diazepam 10 mg tablet 10 mg PO TIDP PRN Anxiety 09/25/23 09/26/23 History gabapentin 600 mg tablet 600 mg PO QID 09/25/23 09/26/23 History levocetirizine 5 mg tablet 5 mg PO DAILY 09/25/23 09/26/23 History olanzapine 2.5 mg tablet 2.5 mg PO DAILY 09/25/23 09/26/23 History oxycodone 5 mg tablet 5 mg PO Q6HP PRN Severe Pain 09/25/23 09/26/23 History (Scale Score 7-10) prochlorperazine maleate 10 mg 10 mg PO Q6HP PRN Nausea And 09/25/23 09/26/23 History tablet (Compazine) Vomiting sulindac 200 mg tablet 200 mg PO BID 09/25/23 09/26/23 History dexamethasone 4 mg tablet 4 mg PO BID 09/26/23 09/26/23 History New Prescriptions to Start Prescriptions: Allergies Allergy/AdvReac Type Severity Reaction Status Date / Time Iodinated Contrast Media Allergy Intermediate Hives Verified 09/21/23 11:14 Results Laboratory Findings 09/25/23 18:12 09/25/23 18:12 Abnormal lab findings: Abnormal Labs 09/25/23 18:12 WBC 4.3 L RBC 2.73 L Hgb 9.0 L Hct 27.7 L MCV 101.7 H MCH 33.1 H RDW 19.8 H Neut % (Auto) 86.3 H Lymph % (Auto) 6.2 L Lymph # (Auto) 0.3 L Band Neutrophils % 9.0 H Lymphocytes % (Manual) 6 L Metamyelocytes % 2.0 H Myelocytes % 7 H Sodium 135 L Potassium 3.4 L Magnesium 1.5 L NT-Pro-B Natriuret Pep 623 H Total Protein 6.2 L Albumin 3.0 L Albumin/Globulin Ratio 0.9 L Assessment and Plan *Assessment and plan (1) Dyspnea on exertion: Status: Acute Category: Medical Code(s): R06.09 - Other forms of dyspnea (2) Pneumonia: Status: Acute Category: Medical Code(s): J18.9 - Pneumonia, unspecified organism Plan Mr. Magallon is a 68-year-old male smoker greater than [id number] smoking cigars a diagnosis of COPD lung nodules and lymphadenopathy, recent diagnosis of stage IIIB adenocarcinoma Lung currently following with [facility] oncology currently undergoing chemoradiation Presented to the ER complaining of generalized weakness and fatigue. He admits chronic/worsening cough in the last 4-5 days, not associated with any subjective fevers chills/worsening productive phlegm. Patient on admission was treated for sepsis with fluid bolus and was initiated on broad-spectrum antibiotics including vancomycin and Zosyn. CT chest upon admission left upper lobe cavitary lesion and the location of this prior nodule for which she has been receiving radiation at this point of time. Patient also noted to have new right middle and lower lobe airspace disease. Also concerning for worsening lymphadenopathy at this point of time. Whether the noted right upper lobe lesion is a sequelae of radiation/cavitary pneumonia is not clear at this point of time however he will need to be have repeat imaging in 4 to 6 weeks post discharge to follow-up on that. Will continue antibiotics for the definite airspace disease noted on the right middle and right lower lobes. Upon admission, afebrile. Hemodynamically stable. Leukopenia. On examination patient appeared weak and frail. Moderate respiratory distress. On room air saturating 94%. Continue to receive megestrol acetate Plan: -Continue cefepime pending sputum and blood culture results. Discontinue vancomycin. Follow with sputum cultures and nasal MRSA PCR. -COVID-19 and flu PCR panel -Fungal infectious workup -DuoNebs every 6 hours on as-needed basis # Thank you for involving pulmonary in this patient care. Will continue to follow.
--- NOTE | 2023-09-26 10:34 | [facility].PTWOUND ---
Rehab Inpt Wound Evaluation Rehab IP Wound Evaluation Start: 09/25/23 22:38 Freq: ONCE Status: Active Protocol: Document 09/26/23 10:23 PHORNE (Rec: 09/26/23 10:34 PHORNE Laptop) Rehab PT Wound Assessment Subjective Subjective 68 yowm adm to [facility] with PNA, Sepsis, and general deconditioning. He has PMH of tobacco use disorder, COPD, glaucoma, chronic back pain, and carcinoma of the right lung being followed by Dr. Acharya, oncology and receiving radiochemotherapy treatment. He reports he lives with his , no steps to enter the home with ramp installed, and he generally requires assistance with all ADLS and ambulation using cane/RW/ wheelchair. His family reports he has been using the w/c more for all mobility recently . He presents with wounds to his sacrum and L hip upon admission. Wound Sacrum Wound Type Pressure Ulcer Is This a Chronic Wound Yes Wound Staging Unstageable Query Text:Stage I - Unbroken, red skin, no blanching. Stage II - Skin broken, superficial skin loss involving epidermis alone or also dermis. Partial loss of skin layers. Stage III - Pressure area involves epidermis, dermis and subcutaneous tissue, full thickness skin loss. Stage IV - Pressure area involves epidermis, subcutaneous tissue, bone and other supportive tissue. Full thickness skin loss with extensive destruction of underlying tissue and structures. Wound Length (cm) 4.0 Wound Width (cm) 2.5 Wound Depth (cm) 0.1 Wound Bed Appearance Yellow,Slough Percentage of Slough (%) 100 Wound Margins Description Well Defined Surrounding Tissue Appearance [place] Wound Drainage Description Yellow Drainage Amount Small Drainage Odor No Odor Wound Topical Solution/Irrigant Saline Irrigant Primary Dressing Silver Dressing Comment opticell Ag Wound Secondary Dressing Type Composite Comment Bordered foam Wound Debridement Method Sharps,Forceps,Gauze, Mechanical Wound Debridement Amount of Tissue Minimal Removed Wound Debridement Result Yellow Sloughing Remains Dressing Change Patient Tolerance Tolerated Well Plan/Recommendation Comment Wound is currently unstageable due to amount of slough in the wound bed. Upon palpation, it does not feel boggy and no induration in the surrounding tissue noted. Sharp, selective debridement performed with tough, fibrous yellow slough bound to the wound bed noted. Continue dressing changes as above once every 1-2 days as needed. Cochran-Vega Wound Assessment Tool Assessment Wound size 2=Length x Width 4--<16 sq cm Wound depth 4=Obscured by necrosis Wound edges 2=Distinct, outline clearly visible, attached, even with wound base Wound undermining 1=None present Necrotic tissue type 4=Adherent, soft, black eschar Necrotic tissue amount 5=75% to 100% of wound covered Exudate type 5=Purulent: thin or thick, opaque, garcia/yellow, withour without odor Exudate amount 3=Small Skin color surrounding wound 1=[place] or normal for ethnic group Peripheral tissue edema 1=No swelling or edema Peripheral tissue induration 1=None present Granulation tissue 5=No granulation tissue present Epithelialization 5= < 25% wound covered Wound assessment total score 39 PHYSICIAN CERTIFICATION: I certify the specified therapy services for Demetra Magallon JR are required, authorized, and reviewed every 30 days.
--- NOTE | 2023-09-26 10:34 | HMH.PTEV ---
Physical Therapy Evaluation Rehab PT IP Evaluation Start: 09/26/23 09:09 Freq: ONCE Status: Active Protocol: Document 09/26/23 10:23 PHORKOBE (Rec: 09/26/23 10:34 PHORNE Laptop) Subjective/History History History 68 yowm adm to [facility] with PNA, Sepsis, and general deconditioning. He has PMH of tobacco use disorder, COPD, glaucoma, chronic back pain, and carcinoma of the right lung being followed by Dr. Acharya, oncology and receiving radiochemotherapy treatment. He reports he lives with his , no steps to enter the home with ramp installed, and he generally requires assistance with all ADLS and ambulation using cane/RW/ wheelchair. His family reports he has been using the w/c more for all mobility recently . He presents with wounds to his coccyx and L hip upon admission. Subjective Subjective Pt currently reports feeling tired and generally weak, but agrees to mobility assessment. New diagnosis of cancer in past 12 Yes months? Rehab PT IP Eval Objective Appearance Patient Behavior Appropriate Patient Orientation Person,Place,Time Difficulty following instructions none Speech Pattern Clear Ambulation Patient Able to Ambulate Yes Ambulation Observation IP General Gait Pattern Observation Narrow Based Gait,Shuffling Step Ambulation Distance (feet) 15 Ambulation Assistive Device None Ambulation Ability Minimal x 1 (25% assist) Balance Ability to Arise Able, uses arms to help Sitting Balance Steady, safe Standing Balance Unsteady Dynamic Sitting Balance Ability Fair Dynamic Standing Balance Ability Fair Transfers Bed Transfer Ability Minimal x 1 (25% assist) Chair Transfer Ability Minimal x 1 (25% assist) Sit to Stand Bed Transfer Ability Minimal x 1 (25% assist) Sit to Stand Chair Transfer Ability Minimal x 1 (25% assist) Rehab PT IP prob,goals,plan Problems Date of Evaluation: 09/26/23 PT IP Problems Bed Mobility,Transfers,Gait Rehab Potential Rehab Potential Good Plan PT Intervention Plan Bed Mobility,Transfers,Gait, Self care,Therapeutic Exercise PT Plan Frequency Daily Duration LOS Discharge Goals Bed Transfer Ability Contact Guard/Hand Hold Sit to Stand Chair Transfer Ability Contact Guard/Hand Hold Ambulation Assistive Device Rolling Walker Ambulation Distance (feet) 20 Discharge Plan PT Discharge Plan Pt is currently most appropriate to return home with home health services once medically stable for d/c. Skilled therapy is indicated to aid pt return to OF and reduce risk of further injury, debility, falls, or wounds. Eval Complexity Eval Charge Codes 59280 - High Complexity PHYSICIAN CERTIFICATION: I certify the specified therapy services for Demetra Magallon JR are required, authorized, and reviewed every 30 days.
[2023-09-26] MEDS: SULINDAC 200 MG 200 EACH PO ×2 (11:30→20:57)
[2023-09-26] MEDS: GABAPENTIN 600MG TABLET 600 MG PO ×3 (13:02→20:57)
[2023-09-26 13:09] LABS: Coronavirus 19, PCR Not Detected (NotDetected); Influenza A, PCR Not Detected (NotDetected); Influenza B, PCR Not Detected (NotDetected)
[2023-09-26] MEDS: CEFEPIME HCL 2 GM in 0.9 % SODIUM CHLORIDE 100 ML IV (13:59)
--- NOTE | 2023-09-26 15:41 | PC.NURSE ---
PT'S IV PUMP WAS LOCKED DUE TO MULTIPLE ATTEMPTS TALKING TO FAMILY AND EDUCATING THEM NOT TO TOUCH THE IV PUMP AND TO CALL OUT AND LET STAFF KNOW THAT THE PUMP IS BEEPING. PT ALSO INFORMED THAT IF HE COULD NOT KEEP HIS ARM STRAIGHT HE WOULD HAVE TO BE STUCK AGAIN FOR A KNEW IV. PT STATED HE WOULD KEEP HIS ARM STRAIGHT.
--- NOTE | 2023-09-26 18:08 | PC.NURSE ---
Pt has done well today. No c/o pain. he is very wobbly and weak with ambulation. Family has been resistant to calling out and asking for help. Family has been educated to use call light and to not mess with the IV pumps.
[2023-09-27] VITALS (8 sets, daily range): BP systolic 103–140; BP diastolic 50–68; PULSE 80–103; RESP 16–21; TEMP 36.5–36.8; O2SAT 92–97; BMI 16.0
[2023-09-27] MEDS: CEFEPIME HCL 2 GM in 0.9 % SODIUM CHLORIDE 100 ML IV ×2 (00:44→12:00)
[2023-09-27] MEDS: LACTATED RINGERS 1000ML 1,000 ML 150 ML IV ×3 (04:15→20:51)
[2023-09-27] MEDS: GUAIFENESIN/DEXTROMETHORPHAN 200MG/20MG 10ML UDC 10 ML PO (04:42)
--- NOTE | 2023-09-27 05:39 | PC.NURSE ---
pt remains on room air, nsr on monitor, no fevers, pt voiding well, turned and repositioned q2 hr
[2023-09-27] MEDS: IPRATROPIUM/ALBUTEROL 3 ML NEB IH (06:11)
[2023-09-27 06:25] LABS: Basophils % 0.1 % (0.1-2.0); Eosinophils # 0.1 K/mm3 (0.0-0.4); Hematocrit 24.9 % (42.0-52.0); Lymphocytes # 0.2 K/mm3 (0.7-4.5); Mean Corpuscular HGB Conc 32.3 g/dL (31.8-35.4); Mean Corpuscular Hemoglobin 33.7 pg (27.0-31.2); Mean Corpuscular Volume 104.5 fl (80-94); Mean Platelet Volume 8.4 fl (7.4-10.4); Monocytes # 0.2 K/mm3 (0.1-1.0); Monocytes % 4.8 % (1.7-9.3); Neutrophils # 4.4 K/mm3 (1.8-7.8); Neutrophils % 89.2 % (37.0-80.0); Platelet Count 200 K/mm3 (142-424); Red Blood Count 2.38 M/mm3 (4.60-6.20); Red Cell Distribution Width 19.4 % (11.5-17.5); White Blood Count 4.9 K/mm3 (4.8-10.8)
[2023-09-27 06:26] LABS: MANUAL DIFFERENTIAL MANUAL DIFFERENTIAL (MANUAL DIFF)
[2023-09-27 06:35] LABS: Chloride 110 mmol/L (98-107); Potassium 3.8 mmoL/L (3.5-5.1); Sodium 136 mmol/L (136-145)
[2023-09-27 06:37] LABS: Alanine Aminotransferase 15 U/L (12-78); Albumin Level 2.4 g/dl (3.5-5.0); Alkaline Phosphatase 45 U/L (38-126); Aspartate Amino Transferase 21 U/L (17-59); Bilirubin,Total 0.5 mg/dl (0.2-1.3); Blood Urea Nitrogen 11 mg/dl (9-20); Creatinine Clearance Estimated 50 mL/min (50-200); Estimated Glomerular Filt Rate 213 ml/min (>60); GFR (African American) 257 ML/MIN (>60)
[2023-09-27 06:38] LABS: Albumin/Globulin Ratio 0.9 (1.1-1.8); Anion Gap 6.8 mEq/L (5-15); Calcium 8.3 mg/dl (8.4-10.2); Carbon Dioxide 23 mmol/L (22.0-30.0); Globulin 2.8 g/dL (1.3-3.2); Glucose 98 mg/dl (74-100); Total Protein,Serum 5.2 g/dl (6.3-8.2)
[2023-09-27] MEDS: SULINDAC 200 MG 200 EACH PO ×2 (08:38→20:52)
[2023-09-27] MEDS: GABAPENTIN 600MG TABLET 600 MG PO ×3 (08:38→20:52)
[2023-09-27] MEDS: POTASSIUM CHLORIDE 20MEQ TAB 20 MEQ PO ×2 (08:38→20:52)
[2023-09-27] MEDS: MEGESTROL ACETATE 400 MG/10 ML PO (08:39)
--- NOTE | 2023-09-27 09:27 | EXP.PULM.PN ---
Subjective *Date: 09/27/23 *Time: 10:08 Interval history: No acute respiratory events overnight. Patient denies any new respiratory complaints. Pulmonology Exam Inpatient Vital signs and Labs for Last 24 Hours: Temp Pulse Resp BP Pulse Ox O2 Del Method 97.7 F 100 H 21 140/68 94 L Room Air 09/27/23 07:55 09/27/23 08:00 09/27/23 07:55 09/27/23 07:55 09/27/23 07:55 09/27/23 08:09 Laboratory Results - last 24 hr 09/26/23 13:05: SARS-CoV-2 (PCR) Not detected, Influenza A Untype (PCR) Not detected, Influenza Type B (PCR) Not detected 09/27/23 05:55: WBC 4.9, RBC 2.38 L, Hgb 8.0 L, Hct 24.9 L, MCV 104.5 H, MCH 33.7 H, MCHC 32.3, RDW 19.4 H, Plt Count 200, MPV 8.4, Neut % (Auto) 89.2 H, Lymph % (Auto) 5.0 L, [place] % (Auto) 4.8, Eos % (Auto) 1.0, Baso % (Auto) 0.1, Neut # (Auto) 4.4, Lymph # (Auto) 0.2 L, [place] # (Auto) 0.2, Eos # (Auto) 0.1, Baso # (Auto) 0.0, Sodium 136, Potassium 3.8, Chloride 110 H, Carbon Dioxide 23, Anion Gap 6.8, BUN 11 D, Creatinine 0.40 L D, Estimated Creat Clear 50, Estimated GFR 213, Est GFR ( Amer) 257 D, Glucose 98, Calcium 8.3 L, Total Bilirubin 0.5, AST 21, ALT 15, Alkaline Phosphatase 45, Total Protein 5.2 L, Albumin 2.4 L D, Globulin 2.8, Albumin/Globulin Ratio 0.9 L Temp Pulse Resp BP Pulse Ox O2 Del Method 99.4 F 77 18 105/44 L 96 Room Air 09/26/23 07:22 09/26/23 10:09 09/26/23 10:09 09/26/23 07:22 09/26/23 07:22 09/26/23 09:02 Laboratory Results - last 24 hr 09/25/23 18:12: WBC 4.3 L, RBC 2.73 L, Hgb 9.0 L, Hct 27.7 L, MCV 101.7 H, MCH 33.1 H, MCHC 32.5, RDW 19.8 H, Plt Count 243, MPV 8.9, Neut % (Auto) 86.3 H, Lymph % (Auto) 6.2 L, [place] % (Auto) 7.0, Eos % (Auto) 0.2, Baso % (Auto) 0.3, Neut # (Auto) 3.7, Lymph # (Auto) 0.3 L, [place] # (Auto) 0.3, Eos # (Auto) 0.0, Baso # (Auto) 0.0, Total Counted 100, Neutrophils % (Manual) 73, Band Neutrophils % 9.0 H, Lymphocytes % (Manual) 6 L, Monocytes % (Manual) 3, Metamyelocytes % 2.0 H, Myelocytes % 7 H, Nucleated RBCs 1, Platelet Estimate Normal, Hypochromasia 2+, Anisocytosis 2+, Macrocytosis 3+, Sodium 135 L, Potassium 3.4 L, Chloride 103, Carbon Dioxide 26, Anion Gap 9.4, BUN 19, Creatinine 0.70, Estimated Creat Clear 53, Estimated GFR 111, Est GFR ( Amer) 135, Glucose 98, Lactate 1.1, Calcium 8.9, Magnesium 1.5 L, Total Bilirubin 0.8, AST 21, ALT 18, Alkaline Phosphatase 53, Troponin I < 0.01, NT-Pro-B Natriuret Pep 623 H, Total Protein 6.2 L, Albumin 3.0 L, Globulin 3.2, Albumin/Globulin Ratio 0.9 L, Procalcitonin 0.594 09/25/23 21:30: Troponin I < 0.01 09/25/23 23:35: Troponin I < 0.01 09/26/23 07:17: Urine Color Yellow, Urine Appearance Clear, Urine pH 8.0, Ur Specific [place] 1.020, Urine Protein Negative, Urine Glucose (UA) Negative, Urine Ketones Negative, Urine Blood Negative, Urine Nitrate Negative, Urine Bilirubin Negative, Urine Urobilinogen 4.0, Ur Leukocyte Esterase Negative, Urine RBC None, Urine WBC Occasional, Ur Squamous Epith Cells Occasional, Urine Bacteria Trace I & O for Labs for Last 24 Hours: Intake & Output 09/24/23 09/25/23 09/26/23 09/27/23 23:59 23:59 23:59 23:59 Intake Total 1700 / 1700 1924 / 1924 3220 / 3220 Output Total 600 / 600 125 / 125 0 / 0 Balance 1100 / 1100 1799 / 1799 3220 / 3220 Weight 104 lb 14.4 oz 104 lb 14.335 oz 112 lb 4.8 oz Intake & Output 09/23/23 09/24/23 09/25/23 09/26/23 23:59 23:59 23:59 23:59 Intake Total 1700 / 1700 1414 / 1414 Output Total 600 / 600 125 / 125 Balance 1100 / 1100 1289 / 1289 Weight 104 lb 14.4 oz 104 lb 14.335 oz Microbiology Reports for the Last 24 Hours: Microbiology 09/25/23 10:11 Sputum - Expectorated Sputum Gram Stain - Final 09/25/23 10:11 Sputum - Expectorated Sputum Sputum Culture - Preliminary 09/25/23 18:16 Blood Blood Culture - Preliminary NO GROWTH AFTER 24 HOURS 09/25/23 18:16 Blood Blood Culture - Preliminary NO GROWTH AFTER 24 HOURS Constitutional: Present moderate distress Head: Present normocephalic and atraumatic ENT: Present normal exam, normal oropharynx and mucous membranes moist Neck: Present normal inspection and full ROM Respiratory: Present respiratory distress and able to speak in complete sentences; Absent wheezes or crackles Cardiac: Present S1/S2, Tachycardia and radial pulses present GI: Present soft and distention; Absent tenderness or guarding Skin: Present intact; Absent cyanosis or jaundice Neuro: Present alert, awake and oriented x 3 Extremities: Present normal inspection; Absent clubbing or cyanosis Psychiatric: Present normal affect and cooperative Assessment and Plan *Assessment and plan (1) Dyspnea on exertion: Status: Acute Category: Medical Code(s): R06.09 - Other forms of dyspnea (2) Pneumonia: Status: Acute Category: Medical Code(s): J18.9 - Pneumonia, unspecified organism Plan Mr. Magallon is a 68-year-old male smoker greater than [id number] smoking cigars a diagnosis of COPD lung nodules and lymphadenopathy, recent diagnosis of stage IIIB adenocarcinoma Lung currently following with [facility] oncology currently undergoing chemoradiation Presented to the ER complaining of generalized weakness and fatigue. He admits chronic/worsening cough in the last 4-5 days, not associated with any subjective fevers chills/worsening productive phlegm. Patient on admission was treated for sepsis with fluid bolus and was initiated on broad-spectrum antibiotics including vancomycin and Zosyn. CT chest upon admission left upper lobe cavitary lesion and the location of this prior nodule for which she has been receiving radiation at this point of time. Patient also noted to have new right middle and lower lobe airspace disease. Also concerning for worsening lymphadenopathy at this point of time. Whether the noted right upper lobe lesion is a sequelae of radiation/cavitary pneumonia is not clear at this point of time however he will need to be have repeat imaging in 4 to 6 weeks post discharge to follow-up on that. Will continue antibiotics for the definite airspace disease noted on the right middle and right lower lobes. Upon admission, afebrile. Hemodynamically stable. Leukopenia. On initial examination patient appeared weak and frail. Moderate respiratory distress. On room air saturating 94%. Continue to receive megestrol acetate Interval update: No acute respiratory events overnight. Improving leukopenia. Continue to remain on room air. Continue to receive cefepime. Pending sputum cultures and nasal MRSA PCR. COVID-19 and flu PCR panel negative. Purulent sputum staining suboptimal sample. Repeat sputum cultures today. Plan: -F/u AM CXR -Continue cefepime pending sputum and blood culture results. Discontinue vancomycin. Follow with sputum cultures and nasal MRSA PCR. -Fungal infectious workup -DuoNebs every 6 hours on as-needed basis -Nutrition support. Nutrition consult. # Thank you for involving pulmonary in this patient care. Will continue to follow.
[2023-09-27] MEDS: MAGNESIUM OXIDE 400MG TABLET 400 MG PO ×2 (10:08→20:52)
--- NOTE | 2023-09-27 10:19 | PC.NURSE ---
Pt. pullded out his iv.
--- NOTE | 2023-09-27 11:03 | DIET.NUTRFU ---
Spoke to patient today, consumed eggs and mauricio this morning, drank 80% of homemade protein shake. Patient is order homemade protein shake with all meals. Each homemade shake provides 320kcal and 21gm protein, plus he is ordered ensure between meals which is providing 250kcal and 9gm protein. Wrote a reminder on board for patient request ensure plus put communication order in for nursing to offer between meals. Total caloric intake from supplements are 1710kcal and 90gm protein if 100% consumed plus 3 meals/day, also encouraged patient to eat at least 50% with protein as priority. Nutritional needs for wt gain are 1400-1600kcal and 60-70gm protein. Menu has been filled out with his selection. Denied any N/V and LBM was reported on 09/25 per patient. Labs reviewed. Still receiving LR's for hydration and megace for appetite. Will continue to follow
--- NOTE | 2023-09-27 13:07 | EXP.ACUTE.PN ---
Subjective *Date: 09/27/23 *Time: 13:07 Interval history: He is definitely improved. He is eating better this afternoon. See the note from pulmonology. Possible discharge tomorrow on levofloxacin. Medical Exam Vital signs and Labs for Last 24 Hours: Vital Signs Temp Pulse Pulse Resp BP Pulse Ox O2 Del Method 09/27/23 12:31 Room Air 09/27/23 12:00 80 09/27/23 11:47 98.3 F 88 18 104/50 L 93 L Room Air 09/27/23 10:52 Room Air 09/27/23 08:09 Room Air 09/27/23 08:00 100 H 09/27/23 08:00 Room Air 09/27/23 07:55 97.7 F 103 H 21 140/68 94 L Room Air 09/27/23 07:00 Room Air 09/27/23 05:00 Room Air 09/27/23 04:00 98.3 F 98 H 16 110/50 L 97 Room Air 09/27/23 04:00 93 H 09/27/23 03:00 Room Air 09/27/23 01:00 Room Air 09/27/23 00:00 88 09/27/23 00:00 97.9 F 87 16 124/55 L 97 Room Air 09/26/23 23:00 Room Air 09/26/23 21:04 Room Air 09/26/23 21:00 Room Air 09/26/23 20:00 99 H 09/26/23 20:00 98.3 F 98 H 16 88/45 L 94 L Room Air 09/26/23 19:17 83 09/26/23 19:17 81 09/26/23 19:00 Room Air 09/26/23 17:00 Room Air 09/26/23 16:00 90 09/26/23 16:00 98.0 F 85 20 99/49 L 95 Room Air 09/26/23 15:00 Room Air 09/26/23 13:46 82 09/26/23 13:46 75 Intake and Output 09/27/23 09/27/23 09/27/23 03:59 11:59 19:59 Intake Total 3220 / 3730 Output Total 0 / 0 0 / 0 Balance 0 / 3730 3220 / 3730 Intake: Intake, Oral Amount 720 / 1230 Intake, Total IV Amount 2500 / 2500 Lactated Ringers 1000ML 1,000 2500 / 2500 ml @ 150 mls/hr IV .[id number] [facility] Rx#:[id number] Output: Output, Urine Amount 0 / 0 0 / 0 Other: Number of Unmeasured Voids 1 1 Weight 112 lb 4.8 oz Laboratory Results - last 24 hr 09/26/23 13:05: SARS-CoV-2 (PCR) Not detected, Influenza A Untype (PCR) Not detected, Influenza Type B (PCR) Not detected 09/27/23 05:55: WBC 4.9, RBC 2.38 L, Hgb 8.0 L, Hct 24.9 L, MCV 104.5 H, MCH 33.7 H, MCHC 32.3, RDW 19.4 H, Plt Count 200, MPV 8.4, Neut % (Auto) 89.2 H, Lymph % (Auto) 5.0 L, [place] % (Auto) 4.8, Eos % (Auto) 1.0, Baso % (Auto) 0.1, Neut # (Auto) 4.4, Lymph # (Auto) 0.2 L, [place] # (Auto) 0.2, Eos # (Auto) 0.1, Baso # (Auto) 0.0, Sodium 136, Potassium 3.8, Chloride 110 H, Carbon Dioxide 23, Anion Gap 6.8, BUN 11 D, Creatinine 0.40 L D, Estimated Creat Clear 50, Estimated GFR 213, Est GFR ( Amer) 257 D, Glucose 98, Calcium 8.3 L, Total Bilirubin 0.5, AST 21, ALT 15, Alkaline Phosphatase 45, Total Protein 5.2 L, Albumin 2.4 L D, Globulin 2.8, Albumin/Globulin Ratio 0.9 L I & O for Labs for Last 24 Hours: Intake & Output 09/25/23 09/26/23 09/27/23 09/28/23 11:59 11:59 11:59 11:59 Intake Total 3114 / 3114 3730 / 3730 Output Total 725 / 725 0 / 0 Balance 2389 / 2389 3730 / 3730 Weight 104 lb 14.335 oz 112 lb 4.8 oz Microbiology Reports for the Last 24 Hours: Microbiology 09/25/23 10:11 Sputum - Expectorated Sputum Gram Stain - Final 09/25/23 10:11 Sputum - Expectorated Sputum Sputum Culture - Preliminary 09/25/23 18:16 Blood Blood Culture - Preliminary NO GROWTH AFTER 24 HOURS 09/25/23 18:16 Blood Blood Culture - Preliminary NO GROWTH AFTER 24 HOURS Head: Present normocephalic Neck: Present normal inspection Respiratory: Present decreased breath sounds, rhonchi and wheezes Cardiac: Present Reg Rate and Rhythm GI: Present soft; Absent tenderness Rectal (male): Present deferred (male): Present deferred Extremities: Present other (Muscle wasting); Absent edema Skin: Present intact Neuro: Absent Cranial Nerve 2-12 Intact (Blindness in the right eye from glaucoma) Assessment and Plan *Assessment and plan (1) Pneumonia: Status: Acute Category: Medical Code(s): J18.9 - Pneumonia, unspecified organism (2) Malignant neoplasm of right upper lobe of lung: Status: Acute Category: Medical Code(s): C34.11 - Malignant neoplasm of upper lobe, right bronchus or lung (3) Severe protein-calorie malnutrition: Status: Acute Category: Medical Code(s): E43 - Unspecified severe protein-calorie malnutrition (4) Severe muscle deconditioning: Status: Acute Category: Medical Code(s): R29.898 - Other symptoms and signs involving the musculoskeletal system (5) Postobstructive pneumonia: Status: Acute Category: Medical Code(s): J18.9 - Pneumonia, unspecified organism (6) Tobacco abuse disorder: Status: Chronic Category: Medical Code(s): Z72.0 - Tobacco use (7) COPD mixed type: Status: Chronic Category: Medical Code(s): J44.9 - Chronic obstructive pulmonary disease, unspecified Plan I hope to discharge him tomorrow. He will be treated outpatient with antibiotic and follow-up with pulmonology.
[2023-09-27] MEDS: SODIUM CHLORIDE 3% 15ML NEB 3 ML IH (13:49)
[2023-09-27 14:18] LABS: Lymphocytes % 3 % (10-50); Monocytes % 11 % (2-9); Neutrophils % 71 % (42-76); Total Cells Counted 100
[2023-09-27 14:35] LABS: Macrocytosis 2+
[2023-09-27 14:39] LABS: Platelet Estimate Normal
[2023-09-27 14:41] LABS: Anisocytosis 1+
--- NOTE | 2023-09-27 15:55 | PC.NURSE ---
Aox4, up assist times one with walker, 90's on RA, new 20g SAHIL with LR @ 150, blind in right eye, unstageable to coccyx and left hip, pt to possibly d/c tomorrow on levaquin.
[2023-09-28] VITALS: BP 101/50; PULSE 101; PULSE 99; RESP 18; TEMP 37.1; O2SAT 95
[2023-09-28] MEDS: CEFEPIME HCL 2 GM in 0.9 % SODIUM CHLORIDE 100 ML IV (01:35)
[2023-09-28 04:00] VITALS: BP 136/71; PULSE 88; PULSE 98; RESP 18; TEMP 37.2; O2SAT 97; BMI 16.0
--- NOTE | 2023-09-28 05:53 | PC.NURSE ---
bp continues to remain soft. bp 106/60, hr 99 nsr, pt voiding well, remains on 2l/nc
[2023-09-28 07:40] VITALS: BP 114/63; PULSE 114; RESP 20; TEMP 36.6; O2SAT 95
[2023-09-28 08:00] VITALS: PULSE 100; O2SAT 95
--- NOTE | 2023-09-28 08:00 | XR_ITS ---
FINAL REPORT CLINICAL HISTORY: PNM COMPARISON: 09/25/2023 FINDINGS: A single portable view of the chest was obtained. The heart size and pulmonary vascularity are within normal limits. There are multiple calcified mediastinal nodes present as well as calcified granulomas in the lung arceo. Left pleural calcification is again noted. There is biapical pleural thickening and scarring, as well as a cavity in the right lung apex, also noted on the prior chest x-ray of September 24. There is a cavitation in the right apex, also noted on the prior exam, worrisome for tuberculosis or fungal disease, although a pulmonary neoplasm could have a similar appearance. The bony thorax is intact. IMPRESSION: Biapical pleural thickening and cavitary lesion in the right apex, worrisome for tuberculosis or fungal disease although neoplasm could have a similar appearance. The overall exam is unchanged since the prior chest x-ray of September 24. Reviewed, Interpreted and Dictated by Jose Rosa III, MD Transcribed by Jenna Brar Authenticated and [facility]
[2023-09-28] MEDS: MAGNESIUM OXIDE 400MG TABLET 400 MG PO (08:02)
[2023-09-28] MEDS: GABAPENTIN 600MG TABLET 600 MG PO (08:02)
[2023-09-28] MEDS: MEGESTROL ACETATE 400 MG/10 ML PO (08:03)
[2023-09-28] MEDS: SULINDAC 200 MG 200 EACH PO (08:03)
[2023-09-28] MEDS: POTASSIUM CHLORIDE 20MEQ TAB 20 MEQ PO (08:03)
--- NOTE | 2023-09-28 09:30 | SW/DCPLANNER ---
Addendum entered by Nat Ventura 09/28/23 14:38: Umm calvillo/ [facility] stated that services will start Monday10/02/23 for this patient. Original Note: I spoke w/ this patient regarding plans once medically stable for discharge. PT/OT evaluated patient and recommended home w/ home health services. Patient is agreeable to home health services and prefers to use [facility]. I will fax patient information/order to [facility] once medically stable for discharge. Patient may discharge home this afternoon.
--- NOTE | 2023-09-28 09:45 | EXP.PULM.PN ---
Subjective *Date: 09/28/23 *Time: 09:45 Interval history: No acute respiratory events overnight. Patient denies any new respiratory complaints. Pulmonology Exam Inpatient Vital signs and Labs for Last 24 Hours: Temp Pulse Resp BP Pulse Ox O2 Del Method 97.8 F 114 H 20 114/63 95 Room Air 09/28/23 07:40 09/28/23 07:40 09/28/23 07:40 09/28/23 07:40 09/28/23 08:00 09/28/23 08:33 Laboratory Results - last 24 hr 09/27/23 05:55: Total Counted 100, Neutrophils % (Manual) 71, Band Neutrophils % 15.0 H, Lymphocytes % (Manual) 3 L, Monocytes % (Manual) 11 H, Platelet Estimate Normal, Anisocytosis 1+, Macrocytosis 2+ Temp Pulse Resp BP Pulse Ox O2 Del Method 99.4 F 77 18 105/44 L 96 Room Air 09/26/23 07:22 09/26/23 10:09 09/26/23 10:09 09/26/23 07:22 09/26/23 07:22 09/26/23 09:02 Laboratory Results - last 24 hr 09/25/23 18:12: WBC 4.3 L, RBC 2.73 L, Hgb 9.0 L, Hct 27.7 L, MCV 101.7 H, MCH 33.1 H, MCHC 32.5, RDW 19.8 H, Plt Count 243, MPV 8.9, Neut % (Auto) 86.3 H, Lymph % (Auto) 6.2 L, Craig % (Auto) 7.0, Eos % (Auto) 0.2, Baso % (Auto) 0.3, Neut # (Auto) 3.7, Lymph # (Auto) 0.3 L, Craig # (Auto) 0.3, Eos # (Auto) 0.0, Baso # (Auto) 0.0, Total Counted 100, Neutrophils % (Manual) 73, Band Neutrophils % 9.0 H, Lymphocytes % (Manual) 6 L, Monocytes % (Manual) 3, Metamyelocytes % 2.0 H, Myelocytes % 7 H, Nucleated RBCs 1, Platelet Estimate Normal, Hypochromasia 2+, Anisocytosis 2+, Macrocytosis 3+, Sodium 135 L, Potassium 3.4 L, Chloride 103, Carbon Dioxide 26, Anion Gap 9.4, BUN 19, Creatinine 0.70, Estimated Creat Clear 53, Estimated GFR 111, Est GFR ( Amer) 135, Glucose 98, Lactate 1.1, Calcium 8.9, Magnesium 1.5 L, Total Bilirubin 0.8, AST 21, ALT 18, Alkaline Phosphatase 53, Troponin I < 0.01, NT-Pro-B Natriuret Pep 623 H, Total Protein 6.2 L, Albumin 3.0 L, Globulin 3.2, Albumin/Globulin Ratio 0.9 L, Procalcitonin 0.594 09/25/23 21:30: Troponin I < 0.01 09/25/23 23:35: Troponin I < 0.01 09/26/23 07:17: Urine Color Yellow, Urine Appearance Clear, Urine pH 8.0, Ur Specific [place] 1.020, Urine Protein Negative, Urine Glucose (UA) Negative, Urine Ketones Negative, Urine Blood Negative, Urine Nitrate Negative, Urine Bilirubin Negative, Urine Urobilinogen 4.0, Ur Leukocyte Esterase Negative, Urine RBC None, Urine WBC Occasional, Ur Squamous Epith Cells Occasional, Urine Bacteria Trace I & O for Labs for Last 24 Hours: Intake & Output 09/25/23 09/26/23 09/27/23 09/28/23 23:59 23:59 23:59 23:59 Intake Total 1700 / 1700 1924 / 1924 5171 / 5171 2285 / 2285 Output Total 600 / 600 125 / 125 0 / 0 300 / 300 Balance 1100 / 1100 1799 / 1799 5171 / 5171 1984 / 1984 Weight 104 lb 14.4 oz 104 lb 14.335 oz 112 lb 4.8 oz 112 lb 3.2 oz Intake & Output 09/23/23 09/24/23 09/25/23 09/26/23 23:59 23:59 23:59 23:59 Intake Total 1700 / 1700 1414 / 1414 Output Total 600 / 600 125 / 125 Balance 1100 / 1100 1289 / 1289 Weight 104 lb 14.4 oz 104 lb 14.335 oz Microbiology Reports for the Last 24 Hours: Microbiology 09/25/23 10:11 Sputum - Expectorated Sputum Gram Stain - Final 09/25/23 10:11 Sputum - Expectorated Sputum Sputum Culture - Preliminary 09/25/23 18:16 Blood Blood Culture - Preliminary NO GROWTH AFTER 48 HOURS 09/25/23 18:16 Blood Blood Culture - Preliminary NO GROWTH AFTER 48 HOURS Constitutional: Present moderate distress Head: Present normocephalic and atraumatic ENT: Present normal exam, normal oropharynx and mucous membranes moist Neck: Present normal inspection and full ROM Respiratory: Present respiratory distress and able to speak in complete sentences; Absent wheezes or crackles Cardiac: Present S1/S2, Tachycardia and radial pulses present GI: Present soft and distention; Absent tenderness or guarding Skin: Present intact; Absent cyanosis or jaundice Neuro: Present alert, awake and oriented x 3 Extremities: Present normal inspection; Absent clubbing or cyanosis Psychiatric: Present normal affect and cooperative Assessment and Plan *Assessment and plan (1) Dyspnea on exertion: Status: Acute Category: Medical Code(s): R06.09 - Other forms of dyspnea (2) Pneumonia: Status: Acute Category: Medical Code(s): J18.9 - Pneumonia, unspecified organism Plan Mr. Magallon is a 68-year-old male smoker greater than [id number] smoking cigars a diagnosis of COPD lung nodules and lymphadenopathy, recent diagnosis of stage IIIB adenocarcinoma Lung currently following with [facility] oncology currently undergoing chemoradiation Presented to the ER complaining of generalized weakness and fatigue. He admits chronic/worsening cough in the last 4-5 days, not associated with any subjective fevers chills/worsening productive phlegm. Patient on admission was treated for sepsis with fluid bolus and was initiated on broad-spectrum antibiotics including vancomycin and Zosyn. CT chest upon admission left upper lobe cavitary lesion and the location of this prior nodule for which she has been receiving radiation at this point of time. Patient also noted to have new right middle and lower lobe airspace disease. Also concerning for worsening lymphadenopathy at this point of time. Whether the noted right upper lobe lesion is a sequelae of radiation/cavitary pneumonia is not clear at this point of time however he will need to be have repeat imaging in 4 to 6 weeks post discharge to follow-up on that. Will continue antibiotics for the definite airspace disease noted on the right middle and right lower lobes. Upon admission, afebrile. Hemodynamically stable. Leukopenia. On initial examination patient appeared weak and frail. Moderate respiratory distress. On room air saturating 94%. Continue to receive megestrol acetate Pending sputum cultures and nasal MRSA PCR. COVID-19 and flu PCR panel negative. Interval update: No acute respiratory events overnight. Continue to remain on room air. Repeat sputum cultures pending. Chest x-ray stable with no worsening infiltrates. Plan: -F/u AM CXR -Wean antibiotics to levofloxacin for 7 more days to complete a total of 10-day course. Will follow with sputum cultures and nasal MRSA PCR. -Follow with fungal infectious workup -DuoNebs every 6 hours on as-needed basis -Follow with nutrition recommendation # Thank you for involving pulmonary in this patient care. Will follow the patient in 1 to 2 weeks with a chest x-ray PA lateral prior to clinic visit. # For concerning right upper lobe cavitary lesion on whether this is postradiation change/cavitary pneumonia will follow as an outpatient with CT chest in 8 weeks which will be ordered upon his further follow-ups in clinic
--- NOTE | 2023-09-28 10:29 | EXP.ACUTE.PN ---
Subjective *Date: 09/28/23 *Time: 10:29 Interval history: Will discharge today. Clinically stable. See Dr. Olivares's summary of patient's status. With positive MRSA I will discharge on Bactrim DS. He deserves Home Health. Medical Exam Vital signs and Labs for Last 24 Hours: Vital Signs Temp Pulse Pulse Resp BP Pulse Ox O2 Del Method 09/28/23 08:33 Room Air 09/28/23 08:00 100 H 09/28/23 08:00 Room Air 09/28/23 08:00 95 Room Air 09/28/23 07:40 97.8 F 114 H 20 114/63 95 Room Air 09/28/23 06:44 Room Air 09/28/23 05:00 Room Air 09/28/23 04:00 98.9 F 98 H 18 136/71 97 Room Air 09/28/23 04:00 88 09/28/23 03:00 Room Air 09/28/23 01:00 Room Air 09/28/23 00:00 99 H 09/28/23 00:00 99 H 09/28/23 00:00 98.7 F 101 H 18 101/50 L 95 Room Air 09/27/23 23:00 Room Air 09/27/23 21:09 Room Air 09/27/23 21:00 Room Air 09/27/23 20:00 90 09/27/23 20:00 97.8 F 95 H 18 108/54 L 96 Room Air 09/27/23 18:02 Room Air 09/27/23 17:00 Room Air 09/27/23 16:00 100 H 09/27/23 16:00 97.9 F 95 H 17 103/52 L 92 L Room Air 09/27/23 14:21 Room Air 09/27/23 12:31 Room Air 09/27/23 12:00 80 09/27/23 11:47 98.3 F 88 18 104/50 L 93 L Room Air 09/27/23 10:52 Room Air Intake and Output 09/27/23 09/28/23 09/28/23 19:59 03:59 11:59 Intake Total 1950 / 4236 Output Total 0 / 300 300 / 300 Balance 1950 Intake: Intake, Oral Amount 801 / 1051 250 / 1051 Intake, Total IV Amount 1150 / 3185 2034 318 Cefepime HCl 2 gm In 0.9 % 2134 Sodium Chloride 100 ml @ 200 mls/hr IV Q12H [facility] Rx#:[id number] Lactated Ringers 1000ML 1,000 1050 / 1050 ml @ 150 mls/hr IV .Q6H40M [facility] Rx#:[id number] Output: Output, Urine Amount 0 / 300 300 / 300 Other: Number of Unmeasured Voids 1 1 0 Weight 112 lb 3.2 oz Patient Weight 09/28/23 11:59 Weight 112 lb 3.2 oz Laboratory Results - last 24 hr 09/27/23 05:55: Total Counted 100, Neutrophils % (Manual) 71, Band Neutrophils % 15.0 H, Lymphocytes % (Manual) 3 L, Monocytes % (Manual) 11 H, Platelet Estimate Normal, Anisocytosis 1+, Macrocytosis 2+ I & O for Labs for Last 24 Hours: Intake & Output 09/25/23 09/26/23 09/27/23 09/28/23 11:59 11:59 11:59 11:59 Intake Total 3114 / 3114 3730 / 3730 4236 / 4236 Output Total 725 / 725 0 / 0 300 / 300 Balance 2389 / 2389 3730 / 3730 3936 / 3936 Weight 104 lb 14.335 oz 112 lb 4.8 oz 112 lb 3.2 oz Microbiology Reports for the Last 24 Hours: Microbiology 09/26/23 13:00 Nose - Nasal MRSA Culture - Final 09/25/23 10:11 Sputum - Expectorated Sputum Gram Stain - Final 09/25/23 10:11 Sputum - Expectorated Sputum Sputum Culture - Preliminary 09/25/23 18:16 Blood Blood Culture - Preliminary NO GROWTH AFTER 48 HOURS 09/25/23 18:16 Blood Blood Culture - Preliminary NO GROWTH AFTER 48 HOURS Head: Present normocephalic Neck: Present normal inspection Respiratory: Present decreased breath sounds; Absent respiratory distress, stridor, wheezes or diminished air movement Cardiac: Present Reg Rate and Rhythm GI: Present soft; Absent tenderness Rectal (male): Present deferred (male): Present deferred Extremities: Absent edema Skin: Present intact Neuro: Present alert and oriented x 3 Assessment and Plan *Assessment and plan (1) Malignant neoplasm of right upper lobe of lung: Status: Acute Category: Medical Code(s): C34.11 - Malignant neoplasm of upper lobe, right bronchus or lung (2) Pneumonia: Status: Acute Category: Medical Code(s): J18.9 - Pneumonia, unspecified organism (3) Severe protein-calorie malnutrition: Status: Acute Category: Medical Code(s): E43 - Unspecified severe protein-calorie malnutrition (4) Severe muscle deconditioning: Status: Acute Category: Medical Code(s): R29.898 - Other symptoms and signs involving the musculoskeletal system (5) Tobacco abuse disorder: Status: Chronic Category: Medical Code(s): Z72.0 - Tobacco use (6) COPD mixed type: Status: Chronic Category: Medical Code(s): J44.9 - Chronic obstructive pulmonary disease, unspecified (7) Mediastinal lymphadenopathy: Status: Chronic Category: Medical Code(s): R59.0 - Localized enlarged lymph nodes (8) Multiple lung nodules on CT: Status: Chronic Category: Medical Code(s): R91.8 - Other nonspecific abnormal finding of lung field (9) Glaucoma of right eye: Status: Acute Category: Medical Code(s): H40.9 - Unspecified glaucoma Plan Discharge. Deng SABILLON. Follow-up with Pulmonary and with [facility].
[2023-09-28] MEDS: levoFLOXacin 750 MG TABLET PO (10:48)
--- NOTE | 2023-09-28 11:28 | HMH.PHAINT1 ---
Pharmacy Intervention Comments: DISCHARGE MEDICATION COUNSELING PROVIDED. DISCUSSED THE FOLLOWING NEW MEDICATIONS: -DUONEBS (FOR SHORTNESS OF BREATH, EVERY 6 HOURS NEEDED, MAY CAUSE JITTERYNESS/ANXIOUSNESS) -MAGNESIUM (SUPPLEMENT, TWICE DAILY, TAKE WITH FOOD, DIARRHEA IS POSSIBLE) -MEGESTROL (FOR APPETITE STIMULATION, DAILY, MAY CAUSE RASH) -ZOFRAN (FOR NAUSEA/VOMITING, EVERY 8 HOURS NEEDED, MAY CAUSE HEADACHE) -POTASSIUM (SUPPLEMENT, DAILY, TAKE WITH FOOD, NAUSEA POSSIBLE, WATCH FOR SYMPTOMS OF HIGH POTASSIUM GIVEN THAT BACTRIM CAN INTERACT, WATCH FOR MUSCLE PAIN/WEAKNESS, IRREGULAR HEARTBEAT/FLUTTERING IN CHEST). -BACTRIM (ANTIBIOTIC, TWICE DAILY, TAKE WITH OR WITHOUT FOOD, TAKE WITH FULL GLASS OF WATER, RASH POSSIBLE, MAY CAUSE N/V/D.) PATIENT AND VERBALIZED NO QUESTIONS AT THIS TIME.
--- NOTE | 2023-09-29 08:27 | P.DS_ITS ---
General Admission date:: 09/25/23 Discharge date: 09/28/23 HPI HPI HPI: Mr. Magallon is a 68-year-old male patient with a history of tobacco use disorder, glaucoma, chronic back pain, and carcinoma of the right lung being followed by Dr. Acharya, oncology and receiving radiochemotherapy treatment. Patient states he developed a fever yesterday and his made him come to the hospital. He is normally not a very good eater and has been eating as usual. He describes in addition to the fever a congested, sometimes productive cough. He can ambulate only briefly with his walker. Below is documentation from the ER admission. Medical Decision Narrative: 68-year-old male history of COPD, lung cancer secondary to smoking not currently on home oxygen, but receiving chemo and radiation (last received almost 2 weeks prior to this visit) presenting with generalized weakness. No other symptoms. No shortness of breath, nausea, vomiting, fevers, chills, dysuria, diarrhea, chest pain, abdominal pain, or any other concerns. He states that he has had a worsening cough over the last couple of days, but it is nonproductive and only minimally worse. Has not been eating or drinking almost at all over the past couple weeks, so chemo and radiation were held. History was obtained via conversation with patient and . On arrival, patient hemodynamically stable, alert, oriented x4, appropriate, GCS 15, moving all extremities spontaneously, pupils equal and reactive to light. Full physical exam performed and significant for tachycardic, moderately hypotensive, but mentating. Cardiopulmonary exam within normal limits, no focal sounds. No evidence of murmur, gallop, rub. Pulses equal and symmetric bilateral upper and lower extremities. Abdomen soft, nontender, nondistended. Patient is acutely on ch ronically ill, cachectic. Differential includes malnutrition, pneumonia, sepsis, pneumothorax, ACS, WA, deconditioning, among others. Patient was given sepsis fluid bolus, Zosyn, vancomycin for symptomatic management and correction of underlying abnormalities. Workup independently interpreted and significant for mild leukopenia 4.3, not neutropenic, relatively lymphopenic. Nonactionable overall. Chemistry largely nonactionable. Magnesium low at 1.5, this was repleted IV. Troponin negative, BNP nonactionable. Chest x-ray with concern for cavitary lesion right upper lobe, this is likely secondary to new infection versus secondary effects of radiation. CT chest with similar findings, as well as new left lower lobe lung nodule.. See radiology read for full review of final results. Results were relayed to patient and family, they were agreeable to admission for further workup with pulmonology. Patient's family doctor team was contacted and case was discussed at length, patient placed on prophylactic Lovenox, fluids at a rate, admitted for further care. Because patient high risk for clinical decompensation, deemed appropriate for inpatient admission. Results were relayed to patient who voiced understanding and patient was agreeable to inpatient admission and management. Patient was admitted to the hospital for further definitive management. This a.m. patient denies chest pain and shortness of breath. He states he does have some occasional pain in the right side of his chest. He is trying to eat breakfast which consisted pudding and male. He then requested a milkshake which she is now drinking. He states he did sleep some during the night. Hospital Course Hospital Course Hospital Course: On admission patient was started on IV fluids, antibiotics, and DuoNebs for his pneumonia. Dietary and physical therapy were consulted as well as pulmonology. He was started on Megace as an appetite stimulator. 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 COVID and flu PCR panel were both negative. He rec ommended to continue the DuoNebs as well. He did reviewed the CT of the chest and noted the new right middle and lower lobe airspace disease concerning for the worsening lymphadenopathy. The noted right upper lobe lesion possibly was felt to be a sequela of radiation or cavitary pneumonia. Repeated imaging in 4 to 6 weeks postdischarge suggested as follow-up. He followed with the patient during hospitalization. Patient did improve day by day. He was eating better. Plan was to de-escalate to Levaquin for 7 more days for total of a 10-day course of antibiotics. Fungal infectious workup was pending at discharge. On 09/28/2023 patient was stable for discharge to home. He was discharged home on Bactrim DS due to positive MRSA culture. He is to follow-up with pulmonology and with [facility]. Exam Data for Last 24 hours Vital signs and Labs for Last 24 Hours: Temp Pulse Resp BP Pulse Ox O2 Del Method 97.8 F 100 H 20 114/63 95 Room Air 09/28/23 07:40 09/28/23 08:00 09/28/23 07:40 09/28/23 07:40 09/28/23 08:00 09/28/23 10:34 I & O for Last 24 hours: Intake & Output 09/26/23 09/27/23 09/28/23 09/29/23 11:59 11:59 11:59 11:59 Intake Total 3114 / 3114 3730 / 3730 4236 / 4236 Output Total 725 / 725 0 / 0 300 / 300 Balance 2389 / 2389 3730 / 3730 3936 / 3936 Weight 104 lb 14.335 oz 112 lb 4.8 oz 112 lb 3.2 oz Microbiology Reports for the Last 24 Hours: Microbiology 09/25/23 10:11 Sputum - Expectorated Sputum Gram Stain - Final 09/25/23 10:11 Sputum - Expectorated Sputum Sputum Culture - Preliminary Gram Negative Rods Gram Positive Cocci 09/27/23 08:49 Sputum - Expectorated Sputum Gram Stain - Final 09/26/23 13:00 Nose - Nasal MRSA Culture - Final Narrative: Head: Present normocephalic Neck: Present normal inspection Respiratory: Present decreased breath sounds; Absent respiratory distress, stridor, wheezes or diminished air movement Cardiac: Present Reg Rate and Rhythm GI: Present soft; Absent tenderness Rectal (male): Present deferred (male): Present deferred Extremities: Absent edema Skin: Present intact Neuro: Present alert and oriented x 3 Results Data Completed and Pending Completed studies during hospitalization [Text1]: Chest CT 09/25/2023: IMPRESSION: 1. Right apical cavitary mass measuring 3.8 x 2.9 x 3.2 cm with posterior inferior centrilobular opacities in thickening of the bronchi which could represent superimposed pneumonia. 2. New right lower lobe superior segment 1.6 x 1.8 x 1.6 cm nodule with surrounding opacities could represent satellite malignant nodule versus focal pneumonia. Chest x-ray 09/28/2023: IMPRESSION: Biapical pleural thickening and cavitary lesion in the right apex, worrisome for tuberculosis or fungal disease although neoplasm could have a similar appearance. The overall exam is unchanged since the prior chest x-ray of September 24. 09/25/23 18:12: WBC 4.3 L, RBC 2.73 L, Hgb 9.0 L, Hct 27.7 L, MCV 101.7 H, MCH 33.1 H, MCHC 32.5, RDW 19.8 H, Plt Count 243, MPV 8.9, Neut % (Auto) 86.3 H, Lymph % (Auto) 6.2 L, King % (Auto) 7.0, Eos % (Auto) 0.2, Baso % (Auto) 0.3, Neut # (Auto) 3.7, Lymph # (Auto) 0.3 L, King # (Auto) 0.3, Eos # (Auto) 0.0, Baso # (Auto) 0.0, Total Counted 100, Neutrophils % (Manual) 73, Band Neutrophils % 9.0 H, Lymphocytes % (Manual) 6 L, Monocytes % (Manual) 3, Metamyelocytes % 2.0 H, Myelocytes % 7 H, Nucleated RBCs 1, Platelet Estimate Normal, Hypochromasia 2+, Anisocytosis 2+, Macrocytosis 3+, Sodium 135 L, Potassium 3.4 L, Chloride 103, Carbon Dioxide 26, Anion Gap 9.4, BUN 19, Creatinine 0.70, Estimated Creat Clear 53, Estimated GFR 111, Est GFR ( Amer) 135, Glucose 98, Lactate 1.1, Calcium 8.9, Magnesium 1.5 L, Total Bilirubin 0.8, AST 21, ALT 18, Alkaline Phosphatase 53, Troponin I < 0.01, NT-Pro-B Natriuret Pep 623 H, Total Protein 6.2 L, Albumin 3.0 L, Globulin 3.2, Albumin/Globulin Ratio 0.9 L, Procalcitonin 0.594 09/25/23 21:30: Troponin I < 0.01 09/25/23 23:35: Troponin I < 0.01 09/26/23 07:17: Urine Color Yellow, Urine Appearance Clear, Urine pH 8.0, Ur Specific [place] 1.020, Urine Protein Negative, Urine Glucose (UA) Negative, Urine Ketones Negative, Urine Blood Negative, Urine Nitrate Negative, Urine Bilirubin Negative, Urine Urobilinogen 4.0, Ur Leukocyte Esterase Negative, Uri ne RBC None, Urine WBC Occasional, Ur Squamous Epith Cells Occasional, Urine Bacteria Trace 09/26/23 13:05: SARS-CoV-2 (PCR) Not detected, Influenza A Untype (PCR) Not detected, Influenza Type B (PCR) Not detected 09/27/23 05:55: WBC 4.9, RBC 2.38 L, Hgb 8.0 L, Hct 24.9 L, MCV 104.5 H, MCH 33.7 H, MCHC 32.3, RDW 19.4 H, Plt Count 200, MPV 8.4, Neut % (Auto) 89.2 H, Lymph % (Auto) 5.0 L, King % (Auto) 4.8, Eos % (Auto) 1.0, Baso % (Auto) 0.1, Neut # (Auto) 4.4, Lymph # (Auto) 0.2 L, King # (Auto) 0.2, Eos # (Auto) 0.1, Baso # (Auto) 0.0, Sodium 136, Potassium 3.8, Chloride 110 H, Carbon Dioxide 23, Anion Gap 6.8, BUN 11 D, Creatinine 0.40 L D, Estimated Creat Clear 50, Estimated GFR 213, Est GFR ( Amer) 257 D, Glucose 98, Calcium 8.3 L, Total Bilirubin 0.5, AST 21, ALT 15, Alkaline Phosphatase 45, Total Protein 5.2 L, Albumin 2.4 L D, Globulin 2.8, Albumin/Globulin Ratio 0.9 L Labs on day of discharge: Preliminary micro results at discharge 09/25/23 10:11 Sputum Culture - Preliminary Sputum - Expectorated Sputum Gram Negative Rods Gram Positive Cocci 09/25/23 18:16 Blood Culture - Preliminary Blood NO GROWTH AFTER 48 HOURS 09/25/23 18:16 Blood Culture - Preliminary Blood NO GROWTH AFTER 48 HOURS DS: Diagnosis Discharge Diagnosis (1) Malignant neoplasm of right upper lobe of lung: Status: Acute Code(s): C34.11 - Malignant neoplasm of upper lobe, right bronchus or lung (2) Pneumonia: Status: Acute Code(s): J18.9 - Pneumonia, unspecified organism (3) Severe protein-calorie malnutrition: Status: Acute Code(s): E43 - Unspecified severe protein-calorie malnutrition (4) Severe muscle deconditioning: Status: Acute Code(s): R29.898 - Other symptoms and signs involving the musculoskeletal system (5) Tobacco abuse disorder: Status: Chronic Code(s): Z72.0 - Tobacco use (6) COPD mixed type: Status: Chronic Code(s): J44.9 - Chronic obstructive pulmonary disease, unspecified (7) Mediastinal lymphadenopathy: Status: Chronic Code(s): R59.0 - Localized enlarged lymph nodes (8) Multiple lung nodules on CT: Status: Chronic Code(s): R91.8 - Other nonspecific abnormal finding of lung field (9) Glaucoma of right eye: Status: Acute Code(s): H40.9 - Unspecified glaucoma Meds Home Medications and Allergies Home Medications Medication Instructions Recorded Confirmed Type diazepam 10 mg tablet 10 mg PO TIDP PRN Anxiety 09/25/23 09/26/23 History gabapentin 600 mg tablet 600 mg PO QID 09/25/23 09/26/23 History levocetirizine 5 mg tablet 5 mg PO DAILY 09/25/23 09/26/23 History olanzapine 2.5 mg tablet 2.5 mg PO DAILY 09/25/23 09/26/23 History oxycodone 5 mg tablet 5 mg PO Q6HP PRN Severe Pain 09/25/23 09/26/23 History (Scale Score 7-10) prochlorperazine maleate 10 mg 10 mg PO Q6HP PRN Nausea And 09/25/23 09/26/23 History tablet (Compazine) Vomiting sulindac 200 mg tablet 200 mg PO BID 09/25/23 09/26/23 History dexamethasone 4 mg tablet 4 mg PO BID 09/26/23 09/26/23 History ipratropium 0.5 mg-albuterol 3 mg 3 ml inhalation Q6HP PRN Shortness 09/28/23 Rx (2.5 mg base)/3 mL nebulization Of Breath #120 mL soln magnesium oxide 400 mg (241.3 mg 400 mg PO BID #60 tabs 09/28/23 Rx magnesium) tablet megestrol 400 mg/10 mL (40 mg/mL) 400 mg (10 mL) PO DAILY #250 mL 09/28/23 Rx oral suspension potassium chloride 20 mEq 20 meq PO DAILY #30 tabs 09/28/23 Rx tablet,extended release(part/cryst) (Klor-Con M) sulfamethoxazole 800 1 tab PO BID lung infection #20 09/28/23 Rx mg-trimethoprim 160 mg tablet tabs New Prescriptions to Start Prescriptions: ipratropium-albuterol Clyde Lanza magnesium oxide Clyde Lanza megestrol Clyde Lanza potassium chloride [Klor-Con M20] Cylde Lanza sulfamethoxazole-trimethoprim Clyde Lanza Allergies Allergy/AdvReac Type Severity Reaction Status Date / Time Iodinated Contrast Media Allergy Intermediate Hives Verified 09/21/23 11:14 Discharge Plan Disposition Patient Disposition: Home Health Service Condition: Fair Discharge Order Discharge Orders: Discharge Order (Routine); Ordered 09/28/23 Ordered By: Clyde Lanza Follow up Plan Follow up with: Clyde Lanza MD [Primary Care Provider] - 10/19/23 2:30 pm (With Carla) Nimesh Mahmood MD [Staff Physician] - 10/03/23 1:15 pm Jere Olivares MD [Physician] - 10/12/23 1:00 pm Prescriptions/Medication Reconciliation: New ipratropium-albuterol 0.5 mg-3 mg(2.5 mg base)/3 mL Solution For Nebulization 3 ml inhalation Q6HP PRN (Reason: Shortness Of Breath) Qty: 120 3RF magnesium oxide 400 mg (241.3 mg magnesium) Tablet 400 mg PO BID Qty: 60 4RF megestrol 400 mg/10 mL (40 mg/mL) Suspension 400 mg PO DAILY Qty: 250 5RF potassium chloride [Klor-Con M20] 20 mEq Tablet,Er Particles/Crystals 20 meq PO DAILY Qty: 30 2RF sulfamethoxazole-trimethoprim 800-160 mg tablet 1 tab PO BID Qty: 20 0RF Continued gabapentin 600 mg Tablet 600 mg PO QID prochlorperazine maleate [Compazine] 10 mg Tablet 10 mg PO Q6HP PRN (Reason: Nausea And Vomiting) olanzapine 2.5 mg Tablet 2.5 mg PO DAILY diazepam 10 mg Tablet 10 mg PO TIDP PRN (Reason: Anxiety) sulindac 200 mg Tablet 200 mg PO BID oxycodone 5 mg Tablet 5 mg PO Q6HP PRN (Reason: Severe Pain (Scale Score 7-10)) levocetirizine 5 mg Tablet 5 mg PO DAILY dexamethasone 4 mg tablet 4 mg PO BID Patient Comments: TAKE ONE TABLET BY MOUTH TWICE DAILY FOR 7 DAYS -- FINISH ALL MEDICINE -- --TAKE WITH FOOD-- Problem Reconciliation Problems Reviewed?: Yes Patient Discharge Instructions ACTIVITY: Limited activity DIET: regular diet Patient Instructions: DI for Pneumonia -- Adult, DI for Sepsis -- Adult Providers Primary Care Provider: Clyde Lanza Admit Provider: Mick Brand Attending Provider: Clyde Lanza
[2023-10-01 15:37] LABS: Aspergillus flavus Negative (Neg:<1:1); Aspergillus fumigatus Negative (Neg:<1:1); Aspergillus niger Negative (Neg:<1:1); Blastomyces Antibody Negative (Neg:<1:1)
--- NOTE | 2023-10-02 13:07 | CARE MANAGER ---
Spoke with patient's . She states he is doing well. Home health is currently there. They deny questions and are aware of follow up appointments. VERA Pastrana
[2023-10-03 15:01] LABS: Clinical Relevance Notes (.); Disclaimer Notes (.); Fungitell Value < 31.25 pg/mL (.); Interpretation Notes (.)
== END 2023-09-28 12:54 | disposition home health service (06) | DRG 871 ==
LOC: ER 17:58 → 2ND 20:17
PROVIDERS: Internal Medicine Pulmonary Disease; Admitting Provider Family Medicine; Emergency Provider Emergency Medicine; PCP Family Medicine; Visit Provider Family Medicine
DX: A41.9 Sepsis, unspecified organism (principal); E43 Unspecified severe protein-calorie malnutrition; J18.9 Pneumonia, unspecified organism; C34.91 Malignant neoplasm of unspecified part of right bronchus or lung; Z68.1 Body mass index [BMI] 19.9 or less, adult; J44.9 Chronic obstructive pulmonary disease, unspecified; Z87.891 Personal history of nicotine dependence; M54.9 Dorsalgia, unspecified; G89.29 Other chronic pain
CPT/HCPCS: 36415; 71045; 71250; 80053; 81001; 83605; 83735; 83880; 84145; 84484; 85007; 85025; 86606; 86612; 87040; 87070; 87077; 87081; 87186; 87205; 87449; 87636; 93005; 94640; 97116; 97163; 97530; 99291; J2543; J3370; J3475; J7120

== ENCOUNTER 2023-10-12 13:59 | Outpatient (CLI) | payer MEDICARE, SELFPAY ==
--- NOTE | 2023-10-12 14:16 | XR_ITS ---
FINAL REPORT CLINICAL HISTORY: SOB COMPARISON: 09/28/2023 FINDINGS: No acute pulmonary density is evident. There is no evidence of effusion. Note is made of emphysema. There is calcified pleural plaque in the left lung. The previously noted cavitary lesion in the right upper lobe is no longer evident. The mediastinum has a normal appearance. The cardiac silhouette is unremarkable. IMPRESSION: No acute findings. Reviewed, Interpreted and Dictated by Clyde Solis MD Transcribed by Ame Lagos Authenticated and . [facility]
== END 2023-10-12 23:59 | disposition home or self-care (01) ==
LOC: RAD 14:00
PROVIDERS: PCP Family Medicine; Visit Provider Internal Medicine Pulmonary Disease
DX: R06.02 Shortness of breath (principal)
CPT/HCPCS: 71046

== ENCOUNTER 2023-10-21 17:40 | Emergency (ER) | payer MEDICARE, SELFPAY ==
[2023-10-21] VITALS (7 sets, daily range): BP systolic 107–125; BP diastolic 58–65; PULSE 100–121; RESP 17–19; TEMP 36.5–37.2; O2SAT 97–98; BMI 13.9; BMI 14.1
--- NOTE | 2023-10-21 17:55 | PC.NURSE ---
DR COTE AT BEDSIDE
--- NOTE | 2023-10-21 17:57 | ECG_ITS ---
APPROVED REPORT Exam: Resting ECG HR:117 bpm ECG Measurements Heart Rate 117 AXES KS 104 P 81 QRSd 75 QRS 90 QT 304 T 69 QTc 374 Conclusion SINUS TACHYCARDIA Electronically signed by : OKSANA COTE, 10/23/2023 15:06:14
--- NOTE | 2023-10-21 18:02 | CT_ITS ---
PROCEDURE INFORMATION: Exam: CT Head Without Contrast Exam date and time: 10/21/2023 6:28 PM Age: 68 years old Clinical indication: Stroke-like symptoms; Altered mental status/memory loss and dizziness/giddiness; Additional info: Possible stroke TECHNIQUE: Imaging protocol: Computed tomography of the head without contrast. Radiation optimization: All CT scans at this facility use at least one of these dose optimization techniques: automated exposure control; mA and/or kV adjustment per patient size (includes targeted exams where dose is matched to clinical indication); or iterative reconstruction. Other technique: STROKE PROTOCOL was implemented. COMPARISON: MR HEAD/BRAIN WO/W CON 07/06/2023 11:53 AM FINDINGS: Brain: No intracranial hemorrhage. No mass effect, edema or midline shift. There are vague areas of decreased attenuation within the periventricular white matter likely secondary to chronic microvascular changes. Mild age related cerebral volume loss resulting in prominence of cortical sulci. Cerebral ventricles: Unremarkable for age and degree of cerebral volume loss. Paranasal sinuses: Visualized sinuses are unremarkable. No fluid levels. Mastoid air cells: Visualized mastoid air cells are well aerated. Bones/joints: Unremarkable. No acute fracture. Soft tissues: Unremarkable. IMPRESSION: No acute intracranial abnormality. ASSESSMENT: ASPECTS ([place] Stroke Program Early CT Score) is 10.
--- NOTE | 2023-10-21 18:02 | CT_ITS ---
PROCEDURE INFORMATION: Exam: CTA Head With Contrast, Arteriography Exam date and time: 10/21/2023 6:30 PM Age: 68 years old Clinical indication: Stroke-like symptoms; Altered mental status/memory loss; Additional info: Possible stroke TECHNIQUE: Imaging protocol: Computed tomographic angiography of the head with contrast. Exam focused on the arteries. 3D rendering (Not supervised by radiologist): MIP and/or 3D reconstructed images were created by the technologist. Radiation optimization: All CT scans at this facility use at least one of these dose optimization techniques: automated exposure control; mA and/or kV adjustment per patient size (includes targeted exams where dose is matched to clinical indication); or iterative reconstruction. Contrast material: ISOUVE 370; Contrast volume: 100 ml; Contrast route: INTRAVENOUS (IV); COMPARISON: CT HEAD/BRAIN WO CON 10/21/2023 6:28 PM FINDINGS: ANTERIOR CIRCULATION: Right internal carotid artery: Calcification intracranial segment right ICA without severe stenosis. Right middle cerebral artery: No occlusion or significant stenosis. No aneurysm. Right anterior cerebral artery: No occlusion or significant stenosis. No aneurysm. Left internal carotid artery: Calcification intracranial segment left ICA without severe stenosis. Left middle cerebral artery: No occlusion or significant stenosis. No aneurysm. Left anterior cerebral artery: No occlusion or significant stenosis. No aneurysm. POSTERIOR CIRCULATION: Right vertebral artery: Calcification with moderate stenosis terminal segment right vertebral artery. Left vertebral artery: Left vertebral artery is hypoplastic with mild stenosis of the terminal segment. Basilar artery: No occlusion or significant stenosis. No aneurysm. Right posterior cerebral artery: No occlusion or significant stenosis. No aneurysm. Left posterior cerebral artery: No occlusion or significant stenosis. No aneurysm. Brain: No intracranial hemorrhage, mass effect, or midline shift. Cerebral ventricles: No ventriculomegaly. Bones/joints: Unremarkable. No acute fracture. Soft tissues: Unremarkable. IMPRESSION: 1. No large vessel occlusion or significant stenosis within the intracranial vasculature. 2. Moderate stenosis terminal segment right vertebral artery.
--- NOTE | 2023-10-21 18:02 | XR_ITS ---
PROCEDURE INFORMATION: Exam: XR Chest Exam date and time: 10/21/2023 6:30 PM Age: 68 years old Clinical indication: Other: L sided weakness, copd, lung CA TECHNIQUE: Imaging protocol: Radiologic exam of the chest. Views: 1 view. COMPARISON: CR XR CHEST 2V 10/12/2023 2:18 PM FINDINGS: Lungs: Lung arceo are hyperinflated consistent with COPD. Indistinct spiculated right apical lung mass consistent with history of known lung carcinoma. Scattered nodular calcifications both lung arceo consistent with old granulomatous disease. Pleural spaces: Unremarkable. No pleural effusion. No pneumothorax. Heart/Mediastinum: Large calcified right lower paratracheal lymph nodes unchanged likely related to old granulomatous disease. Heart is not enlarged. Bones/joints: Unremarkable for age. IMPRESSION: 1. COPD with indistinct spiculated right apical lung mass consistent with history of lung carcinoma. 2. Chronic granulomatous changes stable from prior study.
--- NOTE | 2023-10-21 18:02 | CT_ITS ---
PROCEDURE INFORMATION: Exam: CTA Neck With Contrast Exam date and time: 10/21/2023 6:30 PM Age: 68 years old Clinical indication: Stroke-like symptoms; Dizziness/giddiness; Additional info: Possible stroke. Known lung cancer TECHNIQUE: Imaging protocol: Computed tomographic angiography of the neck with contrast. Exam focused on the cervical segments of the vasculature. 3D rendering (Not supervised by radiologist): MIP and/or 3D reconstructed images were created by the technologist. Radiation optimization: All CT scans at this facility use at least one of these dose optimization techniques: automated exposure control; mA and/or kV adjustment per patient size (includes targeted exams where dose is matched to clinical indication); or iterative reconstruction. Contrast material: ISOUVE 370; Contrast volume: 100 ml; Contrast route: INTRAVENOUS (IV); COMPARISON: PT PET CT Skull Base to Midthigh 07/02/2021 11:43 AM FINDINGS: Right common carotid artery: No stenosis. No dissection or occlusion. Right internal carotid artery: Calcified plaque origin right ICA with moderate stenosis (50-69%). Remainder of the cervical ICAs patent. Right external carotid artery: No occlusion or stenosis of the origin. Left common carotid artery: Spotty calcification distal segment left common carotid artery without significant stenosis. Left internal carotid artery: Extensive calcified plaque origin left ICA with the severe stenosis (70-99%) Left external carotid artery: No occlusion or stenosis of the origin. Right vertebral artery: See Left vertebral artery finding. Left vertebral artery: Left vertebral artery is mildly hypoplastic. Right vertebral artery is dominant, patent with moderate stenosis within midportion of the right vertebral artery. Soft tissues: Normal. No significant soft tissue swelling. Bones/joints: No acute fracture. Moderate degenerative changes mid-lower cervical spine with lateral tilt of cervical curvature. Lungs: Redemonstration of anterior apical spiculated lung mass with adjacent pleural thickening presumed represent site of known lung malignancy. COPD with upper lobe emphysematous changes. IMPRESSION: 1. Severe stenosis left carotid bulb (greater than 70%). 2. Moderate stenosis right carotid bulb (50-69%). 3. Focal calcification with moderate narrowing midportion right vertebral artery. REFERENCES: NASCET CRITERIA. The degree of stenosis in the cervical segment of the internal carotid artery is based on NASCET criteria. Normal is no stenosis. Mild is less than 50% stenosis. Moderate is 50-69% stenosis. Severe is 70% to 99% stenosis. Total occlusion is no detectable patent lumen.
[2023-10-21 18:09] LABS: Basophils % 0.3 % (0.1-2.0); Eosinophils # 0.1 K/mm3 (0.0-0.4); Eosinophils % 1.6 % (0.1-12.0); Hemoglobin 8.9 g/dL (14.1-18.0); Lymphocytes # 0.4 K/mm3 (0.7-4.5); Lymphocytes % 5.9 % (10-50); Mean Corpuscular HGB Conc 34.2 g/dL (31.8-35.4); Mean Corpuscular Hemoglobin 37.9 pg (27.0-31.2); Mean Corpuscular Volume 110.7 fl (80-94); Monocytes # 0.3 K/mm3 (0.1-1.0); Monocytes % 4.4 % (1.7-9.3); Neutrophils # 5.7 K/mm3 (1.8-7.8); Neutrophils % 87.8 % (37.0-80.0); Platelet Count 247 K/mm3 (142-424); Red Blood Count 2.35 M/mm3 (4.60-6.20); Red Cell Distribution Width 18.9 % (11.5-17.5); White Blood Count 6.5 K/mm3 (4.8-10.8)
[2023-10-21 18:16] LABS: Activated Partial Thrombo Time 32.9 seconds (22.8-30.6); Alanine Aminotransferase 21 U/L (12-78); Albumin Level 3.4 g/dl (3.5-5.0); Albumin/Globulin Ratio 0.9 (1.1-1.8); Alkaline Phosphatase 65 U/L (38-126); Anion Gap 11.9 mEq/L (5-15); Aspartate Amino Transferase 34 U/L (17-59); Bilirubin,Total 0.4 mg/dl (0.2-1.3); Blood Urea Nitrogen 16 mg/dl (9-20); Calcium 9.4 mg/dl (8.4-10.2); Carbon Dioxide 28 mmol/L (22.0-30.0); Chloride 101 mmol/L (98-107); Creatinine Clearance Estimated 47 mL/min (50-200); Estimated Glomerular Filt Rate 96 ml/min (>60); GFR (African American) 116 ML/MIN (>60); Globulin 3.6 g/dL (1.3-3.2); Glucose 120 mg/dl (74-100); INR 1.01 (0.9-1.1); Potassium 3.9 mmoL/L (3.5-5.1); Prothrombin Time 11.3 seconds (10.1-12.5); Sodium 137 mmol/L (136-145)
[2023-10-21] MEDS: METHYLPREDNISOLONE SOD SUCC 125MG VIAL 125 MG IV (18:16)
[2023-10-21] MEDS: diphenhydrAMINE 50MG/ML VIAL 25 MG IV (18:16)
[2023-10-21 18:18] LABS: MANUAL DIFFERENTIAL MANUAL DIFFERENTIAL (MANUAL DIFF)
--- NOTE | 2023-10-21 18:18 | ED_ITS ---
Discharge Plan Disposition Patient Disposition: Home, Self-Care Chief Complaint: Neuro Symptoms/Deficit Prescriptions Prescriptions: No Action Stiolto Respimat 2.5-2.5 mcg/actuation mist 2 puff inhalation DAILY 90 Days Qty: 4 2RF sulfamethoxazole-trimethoprim [Bactrim DS] 800-160 mg tablet 1 tab PO BID 14 Days Qty: 28 0RF sulfamethoxazole-trimethoprim 800-160 mg tablet 1 tab PO BID Qty: 20 0RF Rx Instructions: Stop taking Levofloxacin. gabapentin 600 mg Tablet 600 mg PO QID prochlorperazine maleate [Compazine] 10 mg Tablet 10 mg PO Q6HP PRN (Reason: Nausea And Vomiting) olanzapine 2.5 mg Tablet 2.5 mg PO DAILY diazepam 10 mg Tablet 10 mg PO TIDP PRN (Reason: Anxiety) sulindac 200 mg Tablet 200 mg PO BID oxycodone 5 mg Tablet 5 mg PO Q6HP PRN (Reason: Severe Pain (Scale Score 7-10)) levocetirizine 5 mg Tablet 5 mg PO DAILY dexamethasone 4 mg tablet 4 mg PO BID Patient Comments: TAKE ONE TABLET BY MOUTH TWICE DAILY FOR 7 DAYS -- FINISH ALL MEDICINE -- --TAKE WITH FOOD-- ipratropium-albuterol 0.5 mg-3 mg(2.5 mg base)/3 mL Solution For Nebulization 3 ml inhalation Q6HP PRN (Reason: Shortness Of Breath) Qty: 120 3RF magnesium oxide 400 mg (241.3 mg magnesium) Tablet 400 mg PO BID Qty: 60 4RF megestrol 400 mg/10 mL (40 mg/mL) Suspension 400 mg PO DAILY Qty: 250 5RF potassium chloride [Klor-Con M20] 20 mEq Tablet,Er Particles/Crystals 20 meq PO DAILY Qty: 30 2RF Referrals Follow up/Referrals: Clyde Lanza MD [Primary Care Provider] - See instructions Activity Restrictions/Add. Instructions Additional Instructions/Restrictions: Begin taking daily aspirin [address] Lnaza about scheduling outpatient MRI to further characterize left-sided symptoms. Call your family doctor to establish care for this visit to the emergency department and schedule follow-up within 48 hours to ensure improvement. If you have any worsening of your condition or any other concerning signs or symptoms, return to the emergency department or your primary care doctor for further evaluation. Clinical Impressions Clinical Impression: Left sided numbness, Acute left-sided weakness Discharge ED Provider: Jonathan Roberts General Adult [facility] General Chief complaint: Neuro Symptoms/Deficit Stated complaint: weak Time Seen by Provider: 10/21/23 17:52 Mode of Arrival: Wheelchair Source of Information: Patient, Spouse and Relative Limitations: No Limitations Description of Symptoms (Recalled from ER Triage Doc. by RN): PT AND FAMILY REPORT LEFT SIDED WEAKNESS, FACIAL DROOP AND DROOLING. STARTED APPROX 3 DAYS AGO AND HAS NOT IMPROVED. PT ALERT AND ORIENTED. ANSWERS QUESTIONS APPROPRIATELY. REPORTS DECREASED SENSATION OF LEFT SIDE OF FACE, ANTIQUE FURNITURE REPAIRER EQUAL, DECREASED MOVEMENT OF LEFT LEG. FAMILY REPORTS RIGHT SIDED WEAKNESS AND FALLING FOR SEVERAL DAYS History of Present Illness HPI narrative: Please note that above description of symptoms, in this electronic medical record under categorization of recalled from ER triage doctor by RN are reflective of an initial nursing assessment, however, is not reflective of my full history and physical exam that was personally taken and clarified. Consequentially, this preceding description of symptoms, which may include the patient's categorized chief complaint in the EMR, do not reflect my personal clinical impression, and the ultimate description of history of present illness and patient stated complaints should be deferred to this section of the note. Unless stated otherwise or congruent with this section of the note, additional signs, symptoms, or incongruence should be interpreted as inaccurate with my clinical impression. Related Data Home Medications Medication Instructions Recorded Confirmed diazepam 10 mg tablet 10 mg PO TIDP PRN Anxiety 09/25/23 10/12/23 gabapentin 600 mg tablet 600 mg PO QID 09/25/23 10/12/23 levocetirizine 5 mg tablet 5 mg PO DAILY 09/25/23 10/12/23 olanzapine 2.5 mg tablet 2.5 mg PO DAILY 09/25/23 10/12/23 oxycodone 5 mg tablet 5 mg PO Q6HP PRN Severe Pain 09/25/23 10/12/23 (Scale Score 7-10) prochlorperazine maleate 10 mg 10 mg PO Q6HP PRN Nausea And 09/25/23 10/12/23 tablet (Compazine) Vomiting sulindac 200 mg tablet 200 mg PO BID 09/25/23 10/12/23 dexamethasone 4 mg tablet 4 mg PO BID 09/26/23 10/12/23 Previous Rx's Medication Instructions Recorded ipratropium 0.5 mg-albuterol 3 mg 3 ml inhalation Q6HP PRN Shortness 09/28/23 (2.5 mg base)/3 mL nebulization Of Breath #120 mL soln magnesium oxide 400 mg (241.3 mg 400 mg PO BID #60 tabs 09/28/23 magnesium) tablet megestrol 400 mg/10 mL (40 mg/mL) 400 mg (10 mL) PO DAILY #250 mL 09/28/23 oral suspension potassium chloride 20 mEq 20 meq PO DAILY #30 tabs 09/28/23 tablet,extended release(part/cryst) (Klor-Con M) sulfamethoxazole 800 1 tab PO BID lung infection #20 10/02/23 mg-trimethoprim 160 mg tablet tabs sulfamethoxazole 800 1 tab PO BID 14 days #28 tabs 10/02/23 mg-trimethoprim 160 mg tablet (Bactrim DS) tiotropium 2.5 mcg-olodaterol 2.5 2 puff inhalation DAILY 90 days #4 10/12/23 mcg/actuation mist for inhalation grams (Stiolto Respimat) Allergies Allergy/AdvReac Type Severity Reaction Status Date / Time Iodinated Contrast Media Allergy Intermediate Hives Verified 10/12/23 13:22 [facility] Disclaimer: The information contained in this section may have been updated after the patient was seen, as this information can be updated by other users. Medical History Bilateral impacted cerumen Parotid nodule Pneumonia Dysphagia Dyspnea on exertion Lung cancer Tobacco abuse disorder COPD mixed type Mediastinal lymphadenopathy Hilar lymphadenopathy Multiple lung nodules on CT Smoking greater than 30 pack years Esophageal obstruction due to food impaction Surgical History History of colonoscopy History of eye surgery History of back surgery Family History Other Leukemia Lung cancer Social History Smoking Status: Current every day smoker how long ago did patient quit smokin weeks second hand exposure: Yes alcohol intake: never substance use type: denies use current occupational status: retired Travel in the last 8 weeks: None household members: spouse housing: house lives independently: No marital status: education level: high school service: No current occupational exposures/hazards: No caffeine: Yes firearms in home: No do you feel safe at home: Yes victim of physical abuse: No victim of emotional abuse: No victim of sexual abuse: No would you like helpful sources: No ROS Obtained: Yes All systems reviewed & no additional complaints except as documented Physical Exam General General appearance: alert and in no apparent distress Head Head exam: atraumatic and normocephalic Eye Eye exam: Present normal appearance, PERRL and EOMI ENT ENT exam: Present mucous membranes moist Neck Neck exam: Present normal inspection, full ROM and trachea midline Respiratory Respiratory exam: Absent respiratory distress, wheezes, stridor, accessory muscle use or prolonged expiratory phase Cardiovascular Cardiovascular exam: Present normal rhythm Abdominal Exam Abdominal exam: Present soft; Absent distention, tenderness, guarding, rebound or rigidity Extremities Exam Extremities exam: Absent edema Neurological Exam Neurological exam: Present alert, oriented X3 and motor sensory deficit; Absent CN II-XII intact or normal gait Skin Skin exam: Present warm and dry; Absent diaphoresis or erythema Medical Decision Making Medical Records Medical records reviewed: Yes I reviewed the patient's medical records. Homero Inquiry Pt receiving controlled substance: No Homero was queried for this patient: No Vital Signs: 10/21/23 17:40 10/21/23 17:45 10/21/23 18:20 Temperature 99.0 F Temperature Source Oral Pulse Rate 121 H 115 H Pulse Rate [Radial] 120 H Respiratory Rate 18 Blood Pressure 115/58 L 125/62 Blood Pressure [Right Arm] 115/58 L Blood Pressure Mean 78 82 Blood Pressure Mean [Right Arm] 77 Blood Pressure Source [Right Arm] Automatic Cuff Blood Pressure Position [Right Arm] Sitting 02 Sat by Pulse Oximetry 97 98 98 Oxygen Delivery Method Room Air Room Air 10/21/23 18:44 10/21/23 19:00 Temperature Temperature Source Pulse Rate 105 H 102 H Pulse Rate [Radial] Respiratory Rate 19 17 Blood Pressure 116/59 L 107/58 L Blood Pressure [Right Arm] Blood Pressure Mean Blood Pressure Mean [Right Arm] Blood Pressure Source [Right Arm] Blood Pressure Position [Right Arm] 02 Sat by Pulse Oximetry 98 97 Oxygen Delivery Method Lab Data Lab Results 10/21/23 17:53: WBC 6.5, RBC 2.35 L, Hgb 8.9 L, Hct 26.0 L, MCV 110.7 H, MCH 37.9 H, MCHC 34.2, RDW 18.9 H, Plt Count 247, MPV 8.0, Neut % (Auto) 87.8 H, L ymph % (Auto) 5.9 L, [place] % (Auto) 4.4, Eos % (Auto) 1.6, Baso % (Auto) 0.3, Neut # (Auto) 5.7, Lymph # (Auto) 0.4 L, [place] # (Auto) 0.3, Eos # (Auto) 0.1, Baso # (Auto) 0.0, Total Counted 100, Neutrophils % (Manual) 85 H, Lymphocytes % (Manual) 14, Basophils % (Manual) 1.0, Platelet Estimate Normal, Hypochromasia 1+, Anisocytosis 1+, Macrocytosis 1+, PT 11.3, INR 1.01, APTT 32.9 H, Sodium 137, Potassium 3.9, Chloride 101, Carbon Dioxide 28, Anion Gap 11.9, BUN 16, Creatinine 0.80, Estimated Creat Clear 47, Estimated GFR 96, Est GFR ( Amer) 116, Glucose 120 H, Calcium 9.4, Total Bilirubin 0.4, AST 34, ALT 21, Alkaline Phosphatase 65, Troponin I < 0.01, Total Protein 7.0 D, Albumin 3.4 L, Globulin 3.6 H, Albumin/Globulin Ratio 0.9 L, Triglycerides 74, Cholesterol 137 L, LDL Cholesterol Direct 75.96 L, VLDL Cholesterol 15, HDL Cholesterol 40, Cholesterol/HDL Ratio 3.4 10/21/23 17:53 10/21/23 17:53 Orders (Tests/Meds): ED MEDICATIONS Generic Name Dose Route Start Last Admin Trade Name Freq PRN Reason Stop Dose Admin Sodium Chloride 10 ml 10/21/23 18:01 Sodium Chloride 0.9% 10ml Flush Syringe IV 11/20/23 18:00 NEEDED PRN Maintain IV Site Discontinued Medications Generic Name Dose Route Start Last Admin Trade Name Freq PRN Reason Stop Dose Admin Diphenhydramine HCl 25 mg 10/21/23 18:11 10/21/23 18:16 Diphenhydramine 50mg/Ml Vial IV 10/21/23 18:12 25 mg ONCE ONE Administration Lactated Ringer's 1,000 mls @ 999 mls/hr 10/21/23 18:01 10/21/23 18:21 Lactated Ringer's 1000 Ml Bag IV 10/21/23 19:01 999 mls/hr .Q1H1M ONE Administration Iopamidol 100 ml 10/21/23 18:30 10/21/23 18:31 Iopamidol-370 (76%);100ml Bottle IV 10/21/23 18:31 100 ml ONCE ONE Administration Methylprednisolone Sodium Succinate 125 mg 10/21/23 18:11 10/21/23 18:16 Methylprednisolone Sod Succ 125mg Vial IV 10/21/23 18:12 125 mg ONCE ONE Administration Sodium Chloride 50 ml 10/21/23 18:30 10/21/23 18:31 0.9 % Sodium Chloride 50 Ml Vial IV 10/21/23 18:31 50 ml ONCE ONE Administration Sodium Chloride 10 ml 10/21/23 18:30 10/21/23 18:31 Sodium Chloride 0.9% 10ml Syr (Rad Only) IV 10/21/23 18:31 10 ml ONCE ONE Administration ORDERS Category Date Time Status CT angio head Stat Cat Scan 10/21/23 18:[address] angio neck Stat Cat Scan 10/21/23 18:[address] head/brain wo con Stat Cat Scan 10/21/23 18:02 Completed XR chest portable Stat Exams 10/21/23 18:02 Completed Activated Partial Thrombo Time Stat Lab 10/21/23 17:53 Completed Complete Blood Count Auto Diff Stat Lab 10/21/23 17:53 Completed Comprehensive Metabolic Panel Stat Lab 10/21/23 17:53 Completed Lipid Panel Stat Lab 10/21/23 17:53 Completed Prothrombin Time INR Stat Lab 10/21/23 17:53 Completed Troponin I Q3H Lab 10/21/23 21:15 Ordered Troponin I Q3H Lab 10/22/23 00:15 Ordered Troponin I Stat Lab 10/21/23 17:53 Completed Urinalysis and Microscopic Stat Lab 10/21/23 18:02 Ordered Medical Decision Narrative: 68-year-old male history of lung cancer not currently on chemo or radiation given intolerance to the treatments, hypertension, current tobacco distal order, deconditioning, malnutrition presenting with left-sided weakness. Family states that patient started walking and leaning toward his left, falling toward his left for a number of days prior to this visit. Did not think anything of it. Yesterday, started noting that patient was drooling on the left side of his mouth, slurring his words. Concerned he may have had a stroke. Brought him in today, 10/20 for further evaluation. Patient denies any pain, headache, chest pain, nausea or vomiting, fevers or chills, falls, or any acute complaints. He states that his left side is largely numb. He has been tolerating p.o. intake without issue. History was obtained via conversation with patient and family. On arrival, patient hemodynamically stable, alert, oriented x4, appropriate, GCS 15, moving all extremities spontaneously, pupils equal and reactive to light. Full physical exam performed and significant for NIHSS 4 for left-sided sensation deficit, left-sided facial droop, mild dysarthria. Cardiac exam within normal limits. Patient does have mild end expiratory wheezes, no focal breath sounds. Independent interpretation of EKG shows sinus tachycardia [address] or T wave changes concerning for acute ischemia. OR 104, QRS 75, QTc 374. [place] normal. Patient was given 1 L IV fluids for symptomatic management and correction of underlying abnormalities. Workup independently interpreted and significant for nonactionable CBC or chemistry, kidney function normal, troponin negative, lipids nonactionable. CT head without acute intracranial hemorrhage. CTA head and neck with vascular stenosis, but no acute large vessel occlusion. See radiology read for full review of final results. On reevaluation, patient still resting at baseline. Admission was offered, it was discussed that admission would likely not change anything other than given medication management. At this, patient is opting for home-going. Because patient has not been taking the aspirin this is did. Patient does not have hyperlipidemia on today's workup, so statin not deemed appropriate at this time. Because patient at baseline without signs or symptoms of clinical decompensation, deemed appropriate for discharge. Results were relayed to patient who voiced understanding and were agreeable to outpatient management and follow up. I discussed my clinical impression with patient and answered all questions. At this time, the evidence for any other entities in the differential is insufficient to warrant any further testing or ED observation. This was explained as well. Advisory was given that persistent or worsening symptoms require further evaluation. I confirmed the understanding of this discussion. Vocational Rehabilitation Supervisor disclaimer Much of this encounter note is an electronic adjunct english instructor spoken language to printed text. Electronic adjunct english instructor of the spoken language may permit errors. Although I have reviewed the note, some errors may still exist. Critical Care Critical Care Time Critical Care Time: No
[2023-10-21] MEDS: LACTATED RINGERS 1000ML 1,000 ML 999 ML IV (18:21)
[2023-10-21 18:27] LABS: Troponin I < 0.01 ng/ml (0.00-0.034)
[2023-10-21 18:29] LABS: Chol/HDL Ratio 3.4 (1-3.5); Cholesterol 137 mg/dl (140-200); HDL Cholesterol 40 mg/dl (40-60); Triglycerides 74 mg/dl (30-150); VLDL Cholesterol 15 mg/dL (0-40)
[2023-10-21] MEDS: IOPAMIDOL-370 (76%);100ML BOTTLE 100 ML IV (18:31)
[2023-10-21] MEDS: SODIUM CHLORIDE 0.9% 10ML SYR (RAD ONLY) 10 ML IV (18:31)
[2023-10-21] MEDS: 0.9 % SODIUM CHLORIDE 50 ML VIAL IV (18:31)
--- NOTE | 2023-10-21 18:37 | PC.NURSE ---
pt back to room from ct scan
[2023-10-21 18:39] LABS: Direct LDL Cholesterol 75.96 mg/dL (100-129)
--- NOTE | 2023-10-21 18:44 | PC.NURSE ---
updated pt & family on results thus far. Left urinal at bedside for UA sample
[2023-10-21 19:19] LABS: Anisocytosis 1+; Hypochromasia 1+; Lymphocytes % 14 % (10-50); Macrocytosis 1+; Neutrophils % 85 % (42-76); Platelet Estimate Normal; Total Cells Counted 100
--- NOTE | 2023-10-21 19:20 | PC.NURSE ---
rounded on patient and family requested he have something to drink, informed family that the doctor would have to give the OK for PO intake.
--- NOTE | 2023-10-21 19:33 | PC.NURSE ---
Rounded on patient, family at bedside. Patient appears in no acute distress at this time, no needs expressed, water had been provided to patient after dysphagia screen. Patient asked when they could expect any updates on results at this time. Updated patient on known status, updated provider that patient's family was awaiting update.
== END 2023-10-21 20:02 | disposition home or self-care (01) ==
PROVIDERS: Emergency Provider Emergency Medicine; PCP Family Medicine
DX: R29.810 Facial weakness (principal); M62.81 Muscle weakness (generalized); R20.0 Anesthesia of skin; R00.0 Tachycardia, unspecified; C34.90 Malignant neoplasm of unspecified part of unspecified bronchus or lung; F17.210 Nicotine dependence, cigarettes, uncomplicated; E46 Unspecified protein-calorie malnutrition; J44.9 Chronic obstructive pulmonary disease, unspecified; I10 Essential (primary) hypertension; R29.704 NIHSS score 4; Z68.1 Body mass index [BMI] 19.9 or less, adult
CPT/HCPCS: 70450; 70496; 70498; 71045; 80053; 80061; 84484; 85007; 85025; 85027; 85610; 85730; 93005; 96361; 96374; 96375; 99285; J2919; J7120; Q9967

== ENCOUNTER 2023-10-28 19:38 | Day surgery (SDC) | payer MEDICARE, SELFPAY ==
[2023-10-28 19:40] VITALS: BP 144/71; PULSE 116; RESP 18; TEMP 36.9; O2SAT 97; BMI 14.3
--- NOTE | 2023-10-28 20:02 | ECG_ITS ---
APPROVED REPORT Exam: Resting ECG HR:115 bpm ECG Measurements Heart Rate 115 AXES NV 144 P 60 QRSd 86 QRS 89 QT 363 T 87 QTc 431 Conclusion SINUS TACHYCARDIA WITH FREQUENT SUPRAVENTRICULAR PREMATURE COMPLEXES MODERATE T-WAVE ABNORMALITY, CONSIDER ANTEROLATERAL ISCHEMIA [-0.1+ mV T-WAVE IN V3-V6] ABNORMAL ECG Significant chatter and wandering makes interpretation unreliable Electronically signed by : EARLENE STANLEY, 10/28/2023 23:19:02
--- NOTE | 2023-10-28 20:02 | HMH.EDGENADL ---
Discharge Plan Disposition Patient Disposition: Admitted Chief Complaint: PAIN Prescriptions Prescriptions: No Action Stiolto Respimat 2.5-2.5 mcg/actuation mist 2 puff inhalation DAILY 90 Days Qty: 4 2RF sulfamethoxazole-trimethoprim [Bactrim DS] 800-160 mg tablet 1 tab PO BID 14 Days Qty: 28 0RF sulfamethoxazole-trimethoprim 800-160 mg tablet 1 tab PO BID Qty: 20 0RF Rx Instructions: Stop taking Levofloxacin. gabapentin 600 mg Tablet 600 mg PO QID prochlorperazine maleate [Compazine] 10 mg Tablet 10 mg PO Q6HP PRN (Reason: Nausea And Vomiting) olanzapine 2.5 mg Tablet 2.5 mg PO DAILY diazepam 10 mg Tablet 10 mg PO TIDP PRN (Reason: Anxiety) sulindac 200 mg Tablet 200 mg PO BID oxycodone 5 mg Tablet 5 mg PO Q6HP PRN (Reason: Severe Pain (Scale Score 7-10)) levocetirizine 5 mg Tablet 5 mg PO DAILY dexamethasone 4 mg tablet 4 mg PO BID Patient Comments: TAKE ONE TABLET BY MOUTH TWICE DAILY FOR 7 DAYS -- FINISH ALL MEDICINE -- --TAKE WITH FOOD-- ipratropium-albuterol 0.5 mg-3 mg(2.5 mg base)/3 mL Solution For Nebulization 3 ml inhalation Q6HP PRN (Reason: Shortness Of Breath) Qty: 120 3RF magnesium oxide 400 mg (241.3 mg magnesium) Tablet 400 mg PO BID Qty: 60 4RF megestrol 400 mg/10 mL (40 mg/mL) Suspension 400 mg PO DAILY Qty: 250 5RF potassium chloride [Klor-Con M20] 20 mEq Tablet,Er Particles/Crystals 20 meq PO DAILY Qty: 30 2RF Referrals Follow up/Referrals: Clyde Lanza MD [Primary Care Provider] - See instructions Clinical Impressions Clinical Impression: Acute esophageal obstruction Discharge ED Provider: Adriel Peter General Adult HPI General Chief complaint: PAIN Stated complaint: Piece of Steak stuck in throat Time Seen by Provider: 10/28/23 19:49 Mode of Arrival: Wheelchair Source of Information: Patient Limitations: No Limitations Description of Symptoms (Recalled from ER Triage Doc. by RN): Pt presents with dyphasia after choking on a piece of steak at dinner around 1915. Pt denies any SOA, however increased back pain (hx chronic back pain). Pt has hx of lung CA, last chemo tx 1 month ago d/t significant weight loss. 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 Patient was eating steak 1 hour prior to arrival when it became impacted in his throat and he had inability to swallow liquids or solids. He presents here for continued evaluation. Related Data Home Medications Medication Instructions Recorded Confirmed diazepam 10 mg tablet 10 mg PO TIDP PRN Anxiety 09/25/23 10/12/23 gabapentin 600 mg tablet 600 mg PO QID 09/25/23 10/12/23 levocetirizine 5 mg tablet 5 mg PO DAILY 09/25/23 10/12/23 olanzapine 2.5 mg tablet 2.5 mg PO DAILY 09/25/23 10/12/23 oxycodone 5 mg tablet 5 mg PO Q6HP PRN Severe Pain 09/25/23 10/12/23 (Scale Score 7-10) prochlorperazine maleate 10 mg 10 mg PO Q6HP PRN Nausea And 09/25/23 10/12/23 tablet (Compazine) Vomiting sulindac 200 mg tablet 200 mg PO BID 09/25/23 10/12/23 dexamethasone 4 mg tablet 4 mg PO BID 09/26/23 10/12/23 Previous Rx's Medication Instructions Recorded ipratropium 0.5 mg-albuterol 3 mg 3 ml inhalation Q6HP PRN Shortness 09/28/23 (2.5 mg base)/3 mL nebulization Of Breath #120 mL soln magnesium oxide 400 mg (241.3 mg 400 mg PO BID #60 tabs 09/28/23 magnesium) tablet megestrol 400 mg/10 mL (40 mg/mL) 400 mg (10 mL) PO DAILY #250 mL 09/28/23 oral suspension potassium chloride 20 mEq 20 meq PO DAILY #30 tabs 09/28/23 tablet,extended release(part/cryst) (Klor-Con M) sulfamethoxazole 800 1 tab PO BID lung infection #20 10/02/23 mg-trimethoprim 160 mg tablet tabs sulfamethoxazole 800 1 tab PO BID 14 days #28 tabs 10/02/23 mg-trimethoprim 160 mg tablet (Bactrim DS) tiotropium 2.5 mcg-olodaterol 2.5 2 puff inhalation DAILY 90 days #4 10/12/23 mcg/actuation mist for inhalation grams (Stiolto Respimat) Allergies Allergy/AdvReac Type Severity Reaction Status Date / Time Iodinated Contrast Media Allergy Intermediate Hives Verified 10/12/23 13:22 [facility] Disclaimer: The information contained in this section may have been updated after the patient was seen, as this information can be updated by other users. Medical History Bilateral impacted cerumen Parotid nodule Pneumonia Dysphagia Dyspnea on exertion Lung cancer Tobacco abuse disorder COPD mixed type Mediastinal lymphadenopathy Hilar lymphadenopathy Multiple lung nodules on CT Smoking greater than 30 pack years Esophageal obstruction due to food impaction Surgical History History of colonoscopy History of eye surgery History of back surgery Family History Other Leukemia Lung cancer Social History Smoking Status: Former smoker how long ago did patient quit smokin weeks second hand exposure: Yes alcohol intake: never substance use type: denies use current occupational status: retired Travel in the last 8 weeks: None household members: spouse housing: house lives independently: No marital status: education level: high school service: No current occupational exposures/hazards: No caffeine: Yes firearms in home: No do you feel safe at home: Yes victim of physical abuse: No victim of emotional abuse: No victim of sexual abuse: No would you like helpful sources: No ROS Obtained: Yes Systems reviewed as appropriate & no additional complaints except as documented Physical Exam General General appearance: alert and in no apparent distress Head Head exam: atraumatic and normocephalic Eye Eye exam: Present other (Right eye obvious abnormality and blindness) ENT ENT exam: Present mucous membranes moist Neck Neck exam: Present normal inspection Chest Chest inspection: Present normal inspection and symmetric chest wall rise Respiratory Respiratory exam: Present normal lung sounds bilaterally; Absent respiratory distress Cardiovascular Cardiovascular exam: Present regular rate and normal rhythm Abdominal Exam Abdominal exam: Present soft; Absent tenderness Extremities Exam Extremities exam: Present normal inspection Neurological Exam Neurological exam: Present alert Psychiatric Psychiatric exam: Present normal affect Skin Skin exam: Present warm and dry Medical Decision Making Homero Inquiry Pt receiving controlled substance: No Vital Signs: 10/28/23 19:40 Temperature 98.5 F Temperature Source Oral Pulse Rate [Left] 116 H Respiratory Rate 18 Blood Pressure [Right Arm] 144/71 H Blood Pressure Mean [Right Arm] 95 Blood Pressure Source [Right Arm] Automatic Cuff Blood Pressure Position [Right Arm] Sitting 02 Sat by Pulse Oximetry 97 Oxygen Delivery Method Room Air Lab Data Lab Results 10/28/23 19:50: WBC 9.6, RBC 2.81 L, Hgb 10.3 L, Hct 31.1 L, MCV 110.9 H, MCH 36.6 H, MCHC 33.0, RDW 17.7 H, Plt Count 293, MPV 8.2, Neut % (Auto) 87.1 H, Lymph % (Auto) 6.9 L, [place] % (Auto) 4.3, Eos % (Auto) 1.4, Baso % (Auto) 0.3, Neut # (Auto) 8.3 H, Lymph # (Auto) 0.7, [place] # (Auto) 0.4, Eos # (Auto) 0.1, Baso # (Auto) 0.0, Total Counted 100, Neutrophils % (Manual) 94 H, Lymphocytes % (Manual) 4 L, Monocytes % (Manual) 2, Platelet Estimate Normal, RBC Morphology Normal, Sodium 138, Potassium 4.0, Chloride 104, Carbon Dioxide 28, Anion Gap 10.0, BUN 19, Creatinine 0.80, Estimated Creat Clear 47, Estimated GFR 96, Est GFR ( Amer) 116, Glucose 111 H, Calcium 9.5, Total Bilirubin 0.4, AST 23, ALT 16, Alkaline Phosphatase 62, Total Protein 7.6, Albumin 3.9, Globulin 3.7 H, Albumin/Globulin Ratio 1.1 10/28/23 19:50 10/28/23 19:50 Orders (Tests/Meds): ORDERS Category Date Time Status CBC w/Auto Diff [Complete Blood Count Auto Diff] Stat Lab 10/28/23 19:50 Completed CMP [Comprehensive Metabolic Panel] Stat Lab 10/28/23 19:50 Completed EKG Request [ECG Request] Stat Y 10/28/23 20:02 Ordered ECG Data Tracing #1: Independently interpreted by me rate is 121, rhythm is regular, axis is normal, no definitive ST elevation in anatomical contiguous leads, significant wandering of leads. QTc 396. Medical Decision Narrative: Summary patient is a 68-year-old male with past medical history described above who presents emergency department for evaluation of esophageal food bolus in setting of malignancy status post chemoradiation. Patient is hemodynamically stable nontoxic-appearing upon arrival, afebrile. Patient underwent tuck swallowing attempt at bedside which was unsuccessful. Given this patient will require endoscopy for removal and the case was discussed with Dr. Bell who will proceed with endoscopy at this time. Basic hematologic labs and EKG were ordered. Initial workup reviewed by me, hematologic labs are largely nonactionable. EKG nonischemic. Critical Care Critical Care Time Critical Care Time: No
[2023-10-28 20:13] LABS: Basophils % 0.3 % (0.1-2.0); Eosinophils # 0.1 K/mm3 (0.0-0.4); Eosinophils % 1.4 % (0.1-12.0); Hematocrit 31.1 % (42.0-52.0); Hemoglobin 10.3 g/dL (14.1-18.0); Lymphocytes # 0.7 K/mm3 (0.7-4.5); Lymphocytes % 6.9 % (10-50); Mean Corpuscular Hemoglobin 36.6 pg (27.0-31.2); Mean Corpuscular Volume 110.9 fl (80-94); Mean Platelet Volume 8.2 fl (7.4-10.4); Monocytes # 0.4 K/mm3 (0.1-1.0); Monocytes % 4.3 % (1.7-9.3); Neutrophils # 8.3 K/mm3 (1.8-7.8); Neutrophils % 87.1 % (37.0-80.0); Platelet Count 293 K/mm3 (142-424); Red Blood Count 2.81 M/mm3 (4.60-6.20); Red Cell Distribution Width 17.7 % (11.5-17.5); White Blood Count 9.6 K/mm3 (4.8-10.8)
[2023-10-28 20:15] LABS: MANUAL DIFFERENTIAL MANUAL DIFFERENTIAL (MANUAL DIFF)
[2023-10-28 20:21] LABS: Chloride 104 mmol/L (98-107); Sodium 138 mmol/L (136-145)
[2023-10-28 20:24] LABS: Alanine Aminotransferase 16 U/L (12-78); Albumin Level 3.9 g/dl (3.5-5.0); Albumin/Globulin Ratio 1.1 (1.1-1.8); Alkaline Phosphatase 62 U/L (38-126); Aspartate Amino Transferase 23 U/L (17-59); Bilirubin,Total 0.4 mg/dl (0.2-1.3); Blood Urea Nitrogen 19 mg/dl (9-20); Calcium 9.5 mg/dl (8.4-10.2); Carbon Dioxide 28 mmol/L (22.0-30.0); Creatinine Clearance Estimated 47 mL/min (50-200); Estimated Glomerular Filt Rate 96 ml/min (>60); GFR (African American) 116 ML/MIN (>60); Globulin 3.7 g/dL (1.3-3.2); Glucose 111 mg/dl (74-100); Total Protein,Serum 7.6 g/dl (6.3-8.2)
[2023-10-28 20:32] LABS: Lymphocytes % 4 % (10-50); Monocytes % 2 % (2-9); Neutrophils % 94 % (42-76); Platelet Estimate Normal; Total Cells Counted 100
[2023-10-28 20:33] LABS: RBC Morphology Normal
--- NOTE | 2023-10-28 20:33 | ECG_ITS ---
APPROVED REPORT Exam: Resting ECG HR:121 bpm ECG Measurements Heart Rate 121 AXES LA 108 P 76 QRSd 89 QRS 82 QT 324 T 85 QTc 396 Conclusion SINUS TACHYCARDIA WITH SHORT LA INTERVAL WITH OCCASIONAL SUPRAVENTRICULAR PREMATURE COMPLEXES NONSPECIFIC T-WAVE ABNORMALITY ABNORMAL RHYTHM ECG Significant wandering of baseline EKG leads limits interpretation. Electronically signed by : EARLENE STANLEY, 10/29/2023 23:22:26
--- NOTE | 2023-10-28 20:41 | P.CONS_ITS ---
History of Present Illness *Admission Date: 10/28/23 *Reason for visit:: Food impaction *History of present illness: Patient is a 68-year-old male with history of right upper lobe lung cancer, COPD. he has a prior history of esophageal food impaction. He states that he was eating steak approximately 7 PM at which time he developed dysphagia and unable to swallow. He presented to the emergency department. [facility] Disclaimer: The information contained in this section may have been updated after the patient was seen, as this information can be updated by other users. Medical History Bilateral impacted cerumen Parotid nodule Pneumonia Dysphagia Dyspnea on exertion Lung cancer Tobacco abuse disorder COPD mixed type Mediastinal lymphadenopathy Hilar lymphadenopathy Multiple lung nodules on CT Smoking greater than 30 pack years Esophageal obstruction due to food impaction Surgical History History of colonoscopy History of eye surgery History of back surgery Family History Other Leukemia Lung cancer Social History Smoking Status: Former smoker how long ago did patient quit smokin weeks second hand exposure: Yes alcohol intake: never substance use type: denies use current occupational status: retired Travel in the last 8 weeks: None household members: spouse housing: house lives independently: No marital status: education level: high school service: No current occupational exposures/hazards: No caffeine: Yes firearms in home: No do you feel safe at home: Yes victim of physical abuse: No victim of emotional abuse: No victim of sexual abuse: No would you like helpful sources: No Review of Systems Review of Systems Review of systems:: pertinent systems reviewed and negative unless documented below Meds Home Medications and Allergies Home Medications Medication Instructions Recorded Confirmed Type diazepam 10 mg tablet 10 mg PO TIDP PRN Anxiety 09/25/23 10/12/23 History gabapentin 600 mg tablet 600 mg PO QID 09/25/23 10/12/23 History levocetirizine 5 mg tablet 5 mg PO DAILY 09/25/23 10/12/23 History olanzapine 2.5 mg tablet 2.5 mg PO DAILY 09/25/23 10/12/23 History oxycodone 5 mg tablet 5 mg PO Q6HP PRN Severe Pain 09/25/23 10/12/23 History (Scale Score 7-10) prochlorperazine maleate 10 mg 10 mg PO Q6HP PRN Nausea And 09/25/23 10/12/23 History tablet (Compazine) Vomiting sulindac 200 mg tablet 200 mg PO BID 09/25/23 10/12/23 History dexamethasone 4 mg tablet 4 mg PO BID 09/26/23 10/12/23 History ipratropium 0.5 mg-albuterol 3 mg 3 ml inhalation Q6HP PRN Shortness 09/28/23 10/12/23 Rx (2.5 mg base)/3 mL nebulization Of Breath #120 mL soln magnesium oxide 400 mg (241.3 mg 400 mg PO BID #60 tabs 09/28/23 10/12/23 Rx magnesium) tablet megestrol 400 mg/10 mL (40 mg/mL) 400 mg (10 mL) PO DAILY #250 mL 09/28/23 10/12/23 Rx oral suspension potassium chloride 20 mEq 20 meq PO DAILY #30 tabs 09/28/23 10/12/23 Rx tablet,extended release(part/cryst) (Klor-Con M) sulfamethoxazole 800 1 tab PO BID lung infection #20 10/02/23 10/12/23 Rx mg-trimethoprim 160 mg tablet tabs sulfamethoxazole 800 1 tab PO BID 14 days #28 tabs 10/02/23 10/12/23 Rx mg-trimethoprim 160 mg tablet (Bactrim DS) tiotropium 2.5 mcg-olodaterol 2.5 2 puff inhalation DAILY 90 days #4 10/12/23 10/12/23 Rx mcg/actuation mist for inhalation grams (Stiolto Respimat) New Prescriptions to Start Prescriptions: Allergies Allergy/AdvReac Type Severity Reaction Status Date / Time Iodinated Contrast Media Allergy Intermediate Hives Verified 10/12/23 13:22 Exam (Inpt) Vital signs and Labs for Last 24 Hours: Temp Pulse Resp BP Pulse Ox O2 Del Method 98.5 F 116 H 18 144/71 H 97 Room Air 10/28/23 19:40 10/28/23 19:40 10/28/23 19:40 10/28/23 19:40 10/28/23 19:40 10/28/23 19:40 Laboratory Results - last 24 hr 10/28/23 19:50: WBC 9.6, RBC 2.81 L, Hgb 10.3 L, Hct 31.1 L, MCV 110.9 H, MCH 36.6 H, MCHC 33.0, RDW 17.7 H, Plt Count 293, MPV 8.2, Neut % (Auto) 87.1 H, L ymph % (Auto) 6.9 L, [place] % (Auto) 4.3, Eos % (Auto) 1.4, Baso % (Auto) 0.3, [place] # (Auto) 8.3 H, Lymph # (Auto) 0.7, [place] # (Auto) 0.4, Eos # (Auto) 0.1, Baso # (Auto) 0.0, Total Counted 100, Neutrophils % (Manual) 94 H, Lymphocytes % (Manual) 4 L, Monocytes % (Manual) 2, Platelet Estimate Normal, RBC Morphology Normal, Sodium 138, Potassium 4.0, Chloride 104, Carbon Dioxide 28, Anion Gap 10.0, BUN 19, Creatinine 0.80, Estimated Creat Clear 47, Estimated GFR 96, Est GFR ( Amer) 116, Glucose 111 H, Calcium 9.5, Total Bilirubin 0.4, AST 23, ALT 16, Alkaline Phosphatase 62, Total Protein 7.6, Albumin 3.9, Globulin 3.7 H, Albumin/Globulin Ratio 1.1 I & O for Labs for Last 24 Hours: Intake & Output 10/26/23 10/27/23 10/28/23 10/29/23 11:59 11:59 11:59 11:59 Weight 106 lb Constitutional: no acute distress, cachectic and chronically ill appearing Head: Present normocephalic Eyes: Present other Respiratory: Present decreased breath sounds Cardiac: Present Reg Rate and Rhythm GI: Present soft Rectal (male): Present deferred Results Labs 10/28/23 19:50 10/28/23 19:50 Labs: Laboratory Results - last 24 hr 10/28/23 19:50: WBC 9.6, RBC 2.81 L, Hgb 10.3 L, Hct 31.1 L, MCV 110.9 H, MCH 36.6 H, MCHC 33.0, RDW 17.7 H, Plt Count 293, MPV 8.2, Neut % (Auto) 87.1 H, L ymph % (Auto) 6.9 L, [place] % (Auto) 4.3, Eos % (Auto) 1.4, Baso % (Auto) 0.3, N eut # (Auto) 8.3 H, Lymph # (Auto) 0.7, [place] # (Auto) 0.4, Eos # (Auto) 0.1, Baso # (Auto) 0.0, Total Counted 100, Neutrophils % (Manual) 94 H, Lymphocytes % (Manual) 4 L, Monocytes % (Manual) 2, Platelet Estimate Normal, RBC Morphology Normal, Sodium 138, Potassium 4.0, Chloride 104, Carbon Dioxide 28, Anion Gap 10.0, BUN 19, Creatinine 0.80, Estimated Creat Clear 47, Estimated GFR 96, Est GFR ( Amer) 116, Glucose 111 H, Calcium 9.5, Total Bilirubin 0.4, AST 23, ALT 16, Alkaline Phosphatase 62, Total Protein 7.6, Albumin 3.9, Globulin 3.7 H, Albumin/Globulin Ratio 1.1 Assessment and Plan *Assessment and plan (1) Food impaction of esophagus: Status: Acute Category: Medical Code(s): T18.128A - Food in esophagus causing other injury, initial encounter; W44.F3XA - Food entering into or through a natural orifice, initial encounter Plan Plan for emergent upper endoscopy for esophageal obstruction secondary to food impaction.
--- NOTE | 2023-10-28 20:50 | PC.NURSE ---
Patient leaving with anesthesia and OR nurse at this time.
[2023-10-28 21:05] VITALS: BP 154/72; PULSE 83; RESP 22; TEMP 36.9; O2SAT 90
[2023-10-28 21:13] VITALS: BP 118/66; PULSE 105; RESP 16; TEMP 36.4; O2SAT 98
--- NOTE | 2023-10-28 21:15 | HMH.SCOPE ---
Procedure: Date: 10/28/23 Patient Date of :: 1955 Procedure Performed:: Esophagogastroduodenoscopy Indications:: Patient is a 68-year-old male. He has a history of right upper lobe lung cancer. Prior history of esophageal food impaction in 2000 at which time he required emergent upper endoscopy with retrieval. He did undergo a follow-up endoscopy in May 2020 with biopsies and dilatation. He has been in his usual state of health. He is not on antacids. Approximately 7 PM he was eating steak and had symptoms of esophageal obstruction. He presented to the emergency department. After presentation he initially thought that the bolus had passed but then he was unable to swallow secretions. Arrangements were made for emergent upper endoscopy. . Performing Provider:: Jose Bell MD Referring Provider:: Haroon Lanza MD Sedation:: MAC sedation Procedure:: Patient history was obtained and appropriate physical examination was performed. Patient's medications and allergies were reviewed. Informed consent was obtained after explaining the benefits, alternatives, and risks of the procedure including, but not limited to, bleeding, perforation, missed lesions, and adverse reaction to anesthesia medications. Patient was transported to endoscopy procedure room. Patient was connected to monitoring devices. Throughout the procedure the patient's blood pressure, pulse, and oxygen saturations were monitored continuously. Patient identification and planned procedure were verified by the staff. Patient was positioned in lateral decubitus position. Olympus endoscope was inserted via the oropharynx and the esophagus was cannulated. There was some appreciable tortuosity to the esophagus consistent with esophageal dysmotility. There was some focal exudate in the proximal to mid esophagus. Endoscope was advanced and food bolus was encountered in the distal esophagus at approximately 45 cm from the incisors. Arrangements were being made for retrieval using Kruse net which was inserted. Patient then spontaneously passed the bolus into the gastric lumen. The endoscope was advanced into the gastric lumen. There is a significant amount of retained food and liquid. No additional obstruction was noted in the esophagus. Pylorus was traversed and there was no evidence of any gastric outlet obstruction. Endoscope was withdrawn. . Findings:: Esophageal dysmotility Mid esophageal exudative esophagitis, uncertain etiology Transient food impaction distal esophagus Gastroesophageal junction 45 cm . Recommendations:: Recommend limit to full liquid diet for greater than 24 hours then avoid meats and breads. Recommend obtaining [id number] PPI. Plan for follow-up in the office in couple weeks for scheduling of possible repeat upper endoscopy electively with possible dilatation and biopsies. Complications:: None immediately apparent Estimated blood obtained (mL): 1 Colonoscopy Component Colonoscopy Component Was a colonoscopy performed during today's procedure?: No
--- NOTE | 2023-10-28 21:20 | EXP.ANES.CKL ---
[facility] Disclaimer: The information contained in this section may have been updated after the patient was seen, as this information can be updated by other users. Medical History Bilateral impacted cerumen Parotid nodule Pneumonia Dysphagia Dyspnea on exertion Lung cancer Tobacco abuse disorder COPD mixed type Mediastinal lymphadenopathy Hilar lymphadenopathy Multiple lung nodules on CT Smoking greater than 30 pack years Esophageal obstruction due to food impaction Surgical History History of colonoscopy History of eye surgery History of back surgery Family History Other Leukemia Lung cancer Social History Smoking Status: Former smoker how long ago did patient quit smokin weeks second hand exposure: Yes alcohol intake: never substance use type: denies use current occupational status: retired Travel in the last 8 weeks: None household members: spouse housing: house lives independently: No marital status: education level: high school service: No current occupational exposures/hazards: No caffeine: Yes firearms in home: No do you feel safe at home: Yes victim of physical abuse: No victim of emotional abuse: No victim of sexual abuse: No would you like helpful sources: No [facility] Anesthesia Checklist Patient Identification Patient Identification: Arm Band Structural Data Admitted From: Emergency Dept Planned Operative Procedure/s: EGD- Removal of Esophageal Foreign Body Consent for Planned Operative Procedure(s) Verified: Yes Verified Documents: Surgical Consent and History and Physical NPO Status Verified Time NPO: 19:00 (stesanti) Additional verifications Anesthesia Reactions: No Airway Assessment Mallampati Score:: Class II C-Spine Mobility Assessed: Yes TMJ Mobility Assessed: Yes Dentition: Edentulous Neurological Assessment Level of Consciousness: Awake, Alert and Appropriate Anesthesia Plan Anesthesia Risk discussed: Yes Anesthesia Plan: Verified ASA Class: IV (E) Anesthesia Type: MAC
[2023-10-28 21:23] VITALS: BP 117/68; PULSE 106; RESP 16; TEMP 36.4; O2SAT 98
[2023-10-28 21:33] VITALS: BP 123/64; PULSE 104; RESP 16; TEMP 36.4; O2SAT 98
== END 2023-10-28 21:33 | disposition home or self-care (01) ==
PROVIDERS: Surgery; PCP Family Medicine; Visit Provider Emergency Medicine
PROC: 0DJ08ZZ Inspection of Upper Intestinal Tract, Via Natural or Artificial Opening Endoscopic (ICD-10-PCS; CPT 43235; principal; 2023-10-28 21:00)
DX: T18.128A Food in esophagus causing other injury, initial encounter (principal); J44.9 Chronic obstructive pulmonary disease, unspecified; Z79.899 Other long term (current) drug therapy; F17.210 Nicotine dependence, cigarettes, uncomplicated; W44.F3XA Food entering into or through a natural orifice, initial encounter
CPT/HCPCS: 43247; 80053; 85007; 85025; 85027; 93005; 99285

== ENCOUNTER 2023-11-01 15:09 | Outpatient (CLI) | payer MEDICARE, SELFPAY ==
--- NOTE | 2023-11-01 15:15 | US_ITS ---
FINAL REPORT TECHNIQUE: Real-time grayscale and color ultrasound of the soft tissues of the neck was performed. CLINICAL HISTORY: Left parotid gland nodule COMPARISON: None FINDINGS: Ultrasound images of the area of concern in the region of the left parotid gland were obtained. Color Doppler images were submitted. There is a 14 x 8 mm solid hypoechoic nodule in the left parotid gland which is nonspecific. IMPRESSION: Nonspecific 14 mm nodule. Differential diagnosis includes parotid adenopathy or primary parotid neoplasm including pleomorphic adenoma. Reviewed, Interpreted and Dictated by Jose Rosa III, MD Transcribed by Charlene Tello Authenticated and [facility]
== END 2023-11-01 23:59 | disposition home or self-care (01) ==
LOC: RAD 15:10
PROVIDERS: PCP Family Medicine; Visit Provider Nurse Practitioner
DX: K11.8 Other diseases of salivary glands (principal); Z72.0 Tobacco use
CPT/HCPCS: 76536

== ENCOUNTER 2023-11-08 13:00 | Outpatient (RCR) | payer MEDICARE, SELFPAY ==
--- NOTE | 2023-10-18 09:45 | HMH.PTOPWND ---
Rehab Outpt Wound Evaluation Rehab OP Wound Evaluation Start: 10/18/23 09:23 Freq: Status: Active Protocol: Document 10/18/23 09:26 HORACE (Rec: 10/18/23 09:45 PHORKOBE [id number]) E-signed By Jass Allan, PT Subjective/History History History This is the initial PT wound care eval for Demetra Magallon , 68 yowm who presents with Sacral and L hip greater trochanter PI x 1-2 mos overall. He reports minimal tenderness and pain at this time, worse with prolonged sitting. He was recently hospitalized ~2-3 wks ago with PNA and wound care was performed by this therapist while admitted. Sacral wound has healed somewhat since that admission, but remains mostly necrotic. He has complicated course of healing due to underlying hx of lung cancer with recent hx of chemo and radiation, as well as COPD and the aforementioned PNA. He lost considerable weight over the past 1-2 yrs resulting in less cushion around all bony prominences. Subjective Subjective Pt reports pain 3/10 with 1/4 TTP to the lexi-wound skin. Significant lexi-wound erythema noted surrounding the sacral wound. New diagnosis of cancer in past 12 Yes months? Wound Eval Wound Sacrum Wound Type Pressure Ulcer Is This a Chronic Wound Yes Wound Staging Unstageable Query Text:Stage I - Unbroken, red skin, no blanching. Stage II - Skin broken, superficial skin loss involving epidermis alone or also dermis. Partial loss of skin layers. Stage III - Pressure area involves epidermis, dermis and subcutaneous tissue, full thickness skin loss. Stage IV - Pressure area involves epidermis, subcutaneous tissue, bone and other supportive tissue. Full thickness skin loss with extensive destruction of underlying tissue and structures. Wound Length (cm) 5.0 Wound Width (cm) 3.0 Wound Depth (cm) 0.1 Wound Bed Appearance Beefy Red,Yellow,Slough,Eschar Percentage Granulated (%) 20 Percentage of Slough (%) 80 Wound Margins Description Well Defined Surrounding Tissue Appearance Bright Red Drainage Description Serous Drainage Amount Moderate Wound Topical Solution/Irrigant Saline Irrigant Primary Dressing Silver Dressing Comment opticell Ag, Optifoam gentle SA Wound Debridement Method Gauze,Mechanical Wound Debridement Amount of Tissue Minimal Removed Dressing Change Patient Tolerance Tolerated Well Left Lateral Hip Wound Type Pressure Ulcer Is This a Chronic Wound Yes Wound Staging Stage II Query Text:Stage I - Unbroken, red skin, no blanching. Stage II - Skin broken, superficial skin loss involving epidermis alone or also dermis. Partial loss of skin layers. Stage III - Pressure area involves epidermis, dermis and subcutaneous tissue, full thickness skin loss. Stage IV - Pressure area involves epidermis, subcutaneous tissue, bone and other supportive tissue. Full thickness skin loss with extensive destruction of underlying tissue and structures. Wound Length (cm) 1.4 Wound Width (cm) 1.4 Wound Depth (cm) 0.1 Wound Bed Appearance [place] Wound Margins Description Well Defined Surrounding Tissue Appearance [place] Primary Dressing Composite Comment optifoam gentle border SA Wound Debridement Method Gauze,Mechanical Wound Debridement Amount of Tissue None Removed Dressing Change Patient Tolerance Tolerated Well Cochran-Vega Wound Assessment Tool Assessment Wound size 2=Length x Width 4--<16 sq cm Wound depth 3=Full thickness skin loss involving damage or necrosis of Wound edges 2=Distinct, outline clearly visible, attached, even with wound base Wound undermining 1=None present Necrotic tissue type 4=Adherent, soft, black eschar Necrotic tissue amount 5=75% to 100% of wound covered Exudate type 4=Serous: thin, watery, clear Exudate amount 4=Moderate Skin color surrounding wound 2=Bright red &/or blanches to touch Peripheral tissue edema 1=No swelling or edema Peripheral tissue induration 1=None present Granulation tissue 4=[place], &/or dull, dusky red & /or fills < or = 25% of wound Epithelialization 5= < 25% wound covered Wound assessment total score 38 Wound Problems/Impairments Impairments Problems/Impairmments Palpation Tenderness,Impaired Standing,Impaired Sitting, Impaired Shower/Bathing,Wound Care Needs,Subjective C/O Pain ,Impaired Self Care/Self Management Prognosis Rehab Potential Good Comment Skilled therapy services are needed to aid pt return to prior level of function and decrease overall wound healing time to prevent complications or infection. Clinical Impression Consistent with Diagnosis Yes Short Term Goals Number of Weeks 4 Decreased Palpation Tenderness Yes: 0/4 sacral wound Increase Ability to Sit Yes: > 15 min without pain Decrease Wound Area Yes: by 25% Decrease Subjective C/O Pain Yes: [employer] Services Coordinator Goals Number of Weeks 8 Increase Ability to Sit Yes: > 30 min without pain Decrease Wound Area Yes: by 75% Increase Red Granulation Tissue % Yes: to 100% Decrease Subjective C/O Pain Yes: 1/ Patient to be Ind w/ Home Wound Care/ Yes Dressing Changes Outpatient Therapy Plan of Care Treatment Plan May Include Therapeutic Exercise Including Home Yes Exercise Program Manual Therapy Techniques Yes Neuromuscular Re-education Yes Therapeutic Activities to Return to Yes Previous Functional/Work Level ADL/Self Care Education Yes Orthotics/Bracing/Splinting Yes Wound Care Yes Eval/Re-Eval Yes Frequency Times per week 1-2 Duration Number of Weeks 8 Addendums This patient is a candidate for social No or vocational rehab? Patient/Guardian verbally acknowledges Yes understanding of treatment program and consents to further treatment? Patient/Guardian verbally acknowledges Yes understanding of diagnosis, prognosis and goals for treatment? Eval Complexity PT Charges 93205 - High Complexity PHYSICIAN CERTIFICATION: I certify the specified therapy services for Demetra Magallon JR are required, authorized, and reviewed every 30 days.
== END 2023-11-08 14:00 | disposition home or self-care (01) ==
LOC: PT 13:00
PROVIDERS: Visit Provider Physician Assistant
DX: L89.159 Pressure ulcer of sacral region, unspecified stage (principal)
CPT/HCPCS: 97163; 97597

== ENCOUNTER 2023-11-15 08:44 | Outpatient (CLI) | payer MEDICARE, SELFPAY ==
--- NOTE | 2023-11-15 09:16 | CT_ITS ---
FINAL REPORT TECHNIQUE: After the administration of intravenous contrast, axial images through the chest were performed by computed tomography. This study was performed with techniques to keep radiation doses as low as reasonably achievable, (ALARA). Individualized dose reduction techniques using automated exposure control or adjustment of mA and/or kV according to the patient's size were employed. CLINICAL HISTORY: LUNG CANCER COMPARISON: 09/25/2023 FINDINGS: There is no axillary adenopathy. Mild right hilar adenopathy is difficult to compare given lack of contrast on the prior exam. There is long segment esophageal wall thickening which may represent radiation esophagitis. The heart size is normal. There is no pericardial or pleural effusion. The anterior right upper lobe lesion now has resolution of the cavitary component. The residual nodule measures 22 x 19 mm and previously measured 39 x 33 mm. The residual spiculated nodule in the superior segment of the right lower lobe now measures 6 x 4 mm and previously measured 15 x 12 mm. Emphysematous changes are noted. There is improved right lung bronchopneumonia. There is calcified pleural plaque disease in the left lung. IMPRESSION: Improved right lung lesions. No new abnormality. Reviewed, Interpreted and Dictated by Clyde Solis MD Transcribed by Charlene Tello Authenticated and . [facility]
--- NOTE | 2023-11-15 09:17 | CT_ITS ---
FINAL REPORT TECHNIQUE: After the administration of intravenous contrast, axial images were obtained through the abdomen and pelvis by computed tomography. The study was performed with techniques to keep radiation dose as low as reasonably achievable, (ALARA). Individual dose reduction techniques using automated exposure control or adjustment of mA and/or kV according to the patient's size were employed. CLINICAL HISTORY: LUNG CANCER COMPARISON: 08/19/2015 FINDINGS: Abdomen: No acute density is seen within the lung bases. Solid abdominal organs are unremarkable. The gallbladder is negative. There is advanced fecal impaction in the colon. There is no free air. No fluid collection is seen. There is no adenopathy. Pelvis: The appendix is normal. There is chronic fecal impaction. There is mild nonspecific bladder wall thickening. The prostate is unremarkable. There is no free fluid. No pelvic mass is seen. Bony defect in the right pelvis is present from bone harvest for lumbar fusion. IMPRESSION: No evidence of metastatic disease in the abdomen or pelvis. Significant fecal impaction in the colon Reviewed, Interpreted and Dictated by Clyde Solis MD Transcribed by Charlene Tello Authenticated and [facility]
--- NOTE | 2023-11-15 10:29 | HMH.ITSTN ---
There was a contrast allergy in PCS for this patient. Spoke with jillian at dr Mahmood's office and she spoke to the . She said he did not get hives, he just got hot all over. Jillian said to go ahead with the scan and do not pre medicate
[2023-11-15] MEDS: SODIUM CHLORIDE 0.9% 10ML SYR (RAD ONLY) 10 ML IV (10:38)
[2023-11-15] MEDS: IOPAMIDOL-370 (76%);100ML BOTTLE 75 ML IV (10:38)
== END 2023-11-15 23:59 | disposition home or self-care (01) ==
LOC: RAD 08:45
PROVIDERS: PCP Family Medicine; Visit Provider Internal Medicine Medical Oncology
DX: C34.90 Malignant neoplasm of unspecified part of unspecified bronchus or lung (principal)
CPT/HCPCS: 71260; 74177; Q9967

== ENCOUNTER 2023-12-14 11:29 | Outpatient (CLI) | payer MEDICARE, SELFPAY ==
[2023-12-14 11:32] VITALS: BMI 14.1
[2023-12-14 11:52] LABS: Albumin Level 4.1 g/dl (3.5-5.0); Chloride 106 mmol/L (98-107); Sodium 138 mmol/L (136-145)
[2023-12-14 11:53] LABS: Potassium 4.1 mmoL/L (3.5-5.1)
[2023-12-14 11:55] LABS: Alanine Aminotransferase 16 U/L (12-78); Anion Gap 8.1 mEq/L (5-15); Aspartate Amino Transferase 25 U/L (17-59); Blood Urea Nitrogen 9 mg/dl (9-20); Carbon Dioxide 28 mmol/L (22.0-30.0); Creatinine Clearance Estimated 47 mL/min (50-200); Estimated Glomerular Filt Rate 111 ml/min (>60); GFR (African American) 135 ML/MIN (>60)
[2023-12-14 11:56] LABS: Albumin/Globulin Ratio 1.3 (1.1-1.8); Alkaline Phosphatase 59 U/L (38-126); Bilirubin,Total 0.6 mg/dl (0.2-1.3); Calcium 9.2 mg/dl (8.4-10.2); Globulin 3.2 g/dL (1.3-3.2); Glucose 149 mg/dl (74-100); Total Protein,Serum 7.3 g/dl (6.3-8.2)
[2023-12-14 12:14] LABS: Basophils # 0.1 K/mm3 (0-0.2); Basophils % 1.1 % (0.1-2.0); Eosinophils # 0.2 K/mm3 (0.0-0.4); Eosinophils % 5.7 % (0.1-12.0); Hematocrit 39.5 % (42.0-52.0); Hemoglobin 12.2 g/dL (14.1-18.0); Lymphocytes # 0.7 K/mm3 (0.7-4.5); Lymphocytes % 16.6 % (10-50); Mean Corpuscular HGB Conc 30.8 g/dL (31.8-35.4); Mean Corpuscular Hemoglobin 34.6 pg (27.0-31.2); Mean Corpuscular Volume 112.5 fl (80-94); Mean Platelet Volume 7.8 fl (7.4-10.4); Monocytes # 0.2 K/mm3 (0.1-1.0); Monocytes % 5.1 % (1.7-9.3); Neutrophils # 2.9 K/mm3 (1.8-7.8); Neutrophils % 71.5 % (37.0-80.0); Platelet Count 237 K/mm3 (142-424); Red Blood Count 3.51 M/mm3 (4.60-6.20); Red Cell Distribution Width 13.4 % (11.5-17.5)
[2023-12-14 12:45] VITALS: BP 124/58; PULSE 72; RESP 16; TEMP 36.6; O2SAT 98
[2023-12-14 14:00] VITALS: BP 94/59; PULSE 80; RESP 16; TEMP 36.4; O2SAT 98
== END 2023-12-14 14:00 | disposition home or self-care (01) ==
LOC: INF 11:30
PROVIDERS: PCP Family Medicine; Visit Provider Internal Medicine Medical Oncology
DX: C34.11 Malignant neoplasm of upper lobe, right bronchus or lung (principal); C77.9 Secondary and unspecified malignant neoplasm of lymph node, unspecified; F17.200 Nicotine dependence, unspecified, uncomplicated; Z79.899 Other long term (current) drug therapy; Z51.11 Encounter for antineoplastic chemotherapy
CPT/HCPCS: 80053; 85025; 96413; J9173

== ENCOUNTER 2024-01-03 10:18 | Outpatient (CLI) | payer MEDICARE, SELFPAY ==
[2024-01-03 10:50] VITALS: BMI 14.1
[2024-01-03 11:00] LABS: Basophils % 0.3 % (0.1-2.0); Eosinophils % 0.7 % (0.1-12.0); Hematocrit 39.2 % (42.0-52.0); Hemoglobin 11.8 g/dL (14.1-18.0); Lymphocytes # 0.5 K/mm3 (0.7-4.5); Lymphocytes % 8.3 % (10-50); Mean Corpuscular HGB Conc 30.2 g/dL (31.8-35.4); Mean Corpuscular Hemoglobin 34.2 pg (27.0-31.2); Mean Corpuscular Volume 113.2 fl (80-94); Mean Platelet Volume 8.8 fl (7.4-10.4); Monocytes # 0.2 K/mm3 (0.1-1.0); Monocytes % 3.7 % (1.7-9.3); Neutrophils # 5.3 K/mm3 (1.8-7.8); Platelet Count 306 K/mm3 (142-424); Red Blood Count 3.46 M/mm3 (4.60-6.20); Red Cell Distribution Width 13.9 % (11.5-17.5); White Blood Count 6.1 K/mm3 (4.8-10.8)
[2024-01-03 11:06] LABS: Alanine Aminotransferase 40 U/L (12-78); Albumin Level 3.7 g/dl (3.5-5.0); Albumin/Globulin Ratio 1.2 (1.1-1.8); Alkaline Phosphatase 60 U/L (38-126); Anion Gap 8.7 mEq/L (5-15); Aspartate Amino Transferase 42 U/L (17-59); Bilirubin,Total 0.5 mg/dl (0.2-1.3); Blood Urea Nitrogen 17 mg/dl (9-20); Calcium 9.2 mg/dl (8.4-10.2); Carbon Dioxide 28 mmol/L (22.0-30.0); Chloride 106 mmol/L (98-107); Creatinine Clearance Estimated 47 mL/min (50-200); Estimated Glomerular Filt Rate 133 ml/min (>60); GFR (African American) 161 ML/MIN (>60); Globulin 3.2 g/dL (1.3-3.2); Glucose 152 mg/dl (74-100); Potassium 4.7 mmoL/L (3.5-5.1); Sodium 138 mmol/L (136-145); Total Protein,Serum 6.9 g/dl (6.3-8.2)
[2024-01-03 11:11] LABS: MANUAL DIFFERENTIAL MANUAL DIFFERENTIAL (MANUAL DIFF)
--- NOTE | 2024-01-03 11:20 | PC.NURSE ---
1120-pt d/c home and to return next week for treatment; iv d/c
[2024-01-03 12:03] LABS: Lymphocytes % 15 % (10-50); Monocytes % 4 % (2-9); Neutrophils % 81 % (42-76); Total Cells Counted 100
[2024-01-03 12:04] LABS: Macrocytosis 2+; Platelet Estimate Normal
== END 2024-01-03 11:20 | disposition home or self-care (01) ==
LOC: INF 10:19
PROVIDERS: Visit Provider Internal Medicine Medical Oncology
DX: C34.11 Malignant neoplasm of upper lobe, right bronchus or lung (principal)
CPT/HCPCS: 36415; 80053; 85007; 85025; 85027

== ENCOUNTER 2024-01-11 11:25 | Outpatient (CLI) | payer MEDICARE, SELFPAY ==
[2024-01-11 11:55] VITALS: BP 98/59; PULSE 101; RESP 18; TEMP 36.4; O2SAT 98
[2024-01-11] MEDS: SODIUM CHLORIDE 0.9% IV (11:55)
[2024-01-11] MEDS: SODIUM CHLORIDE 0.9% 50ML BAG 50 ML IV (11:55)
[2024-01-11] MEDS: DURVALUMAB IV (11:55)
[2024-01-11 13:08] VITALS: BP 109/54; PULSE 89; RESP 18; O2SAT 98
== END 2024-01-11 13:08 | disposition home or self-care (01) ==
LOC: INF 11:26
PROVIDERS: Visit Provider Internal Medicine Medical Oncology
DX: Z51.11 Encounter for antineoplastic chemotherapy (principal); C34.11 Malignant neoplasm of upper lobe, right bronchus or lung; Z79.899 Other long term (current) drug therapy
CPT/HCPCS: 96413; J9173

== ENCOUNTER 2024-02-08 11:01 | Outpatient (CLI) | payer MEDICARE, SELFPAY ==
[2024-02-08 11:03] VITALS: BMI 15.8
[2024-02-08 11:23] LABS: Alanine Aminotransferase 27 U/L (12-78); Albumin Level 3.9 g/dl (3.5-5.0); Albumin/Globulin Ratio 1.2 (1.1-1.8); Alkaline Phosphatase 111 U/L (38-126); Anion Gap 6.4 mEq/L (5-15); Aspartate Amino Transferase 28 U/L (17-59); Bilirubin,Total 0.9 mg/dl (0.2-1.3); Blood Urea Nitrogen 15 mg/dl (9-20); Calcium 9.7 mg/dl (8.4-10.2); Carbon Dioxide 28 mmol/L (22.0-30.0); Chloride 104 mmol/L (98-107); Creatinine Clearance Estimated 53 mL/min (50-200); Estimated Glomerular Filt Rate 96 ml/min (>60); GFR (African American) 116 ML/MIN (>60); Globulin 3.3 g/dL (1.3-3.2); Glucose 101 mg/dl (74-100); Potassium 4.4 mmoL/L (3.5-5.1); Sodium 134 mmol/L (136-145); Total Protein,Serum 7.2 g/dl (6.3-8.2)
[2024-02-08 11:24] LABS: Basophils # 0.1 K/mm3 (0-0.2); Basophils % 1.2 % (0.1-2.0); Eosinophils # 0.3 K/mm3 (0.0-0.4); Eosinophils % 5.4 % (0.1-12.0); Hemoglobin 12.6 g/dL (14.1-18.0); Lymphocytes # 1.1 K/mm3 (0.7-4.5); Lymphocytes % 17.5 % (10-50); Mean Corpuscular HGB Conc 34.1 g/dL (31.8-35.4); Mean Corpuscular Hemoglobin 34.4 pg (27.0-31.2); Mean Corpuscular Volume 100.7 fl (80-94); Monocytes # 0.6 K/mm3 (0.1-1.0); Monocytes % 9.1 % (1.7-9.3); Neutrophils # 4.2 K/mm3 (1.8-7.8); Neutrophils % 66.9 % (37.0-80.0); Platelet Count 303 K/mm3 (142-424); Red Blood Count 3.68 M/mm3 (4.60-6.20); Red Cell Distribution Width 13.5 % (11.5-17.5); White Blood Count 6.3 K/mm3 (4.8-10.8)
[2024-02-08] MEDS: SODIUM CHLORIDE 0.9% IV (12:24)
[2024-02-08] MEDS: DURVALUMAB IV (12:24)
[2024-02-08] MEDS: SODIUM CHLORIDE 0.9% 50ML BAG 50 ML IV (12:25)
[2024-02-08 12:30] VITALS: BP 107/64; PULSE 89; RESP 18; O2SAT 97
[2024-02-08 13:45] VITALS: BP 97/56; PULSE 88; RESP 18; O2SAT 97
== END 2024-02-08 13:45 | disposition home or self-care (01) ==
LOC: INF 11:02
PROVIDERS: PCP Psychiatry & Neurology Sleep Medicine; Visit Provider Internal Medicine Medical Oncology
DX: C34.11 Malignant neoplasm of upper lobe, right bronchus or lung (principal)
CPT/HCPCS: 80053; 85025; 96413; J9173

== ENCOUNTER 2024-02-28 07:50 | Outpatient (CLI) | payer MEDICARE, SELFPAY ==
--- NOTE | 2024-02-28 07:51 | CT_ITS ---
FINAL REPORT CLINICAL HISTORY: lung cancer COMPARISON: 11/15/2023 FINDINGS: Axial CT images of the chest were obtained with contrast. Coronal reformatted images were also obtained. This study was performed with techniques to keep radiation doses as low as reasonably achievable, (ALARA). Individualized dose reduction techniques using automated exposure control or adjustment of mA and/or KV according to the patient's size were employed. There is persistent esophageal wall thickening, likely inflammatory. There is right hilar adenopathy, measuring 18 mm in diameter, was previously 19 mm, stable. There are moderate changes of emphysema as well as mild scarring. Left pleural calcification is identified. No axillary mass or adenopathy is identified. There is an anterior right upper lobe pleural-based nodular opacity, 20 x 11 mm in size, was previously 22 x 19 mm in size, smaller than seen on the prior exam. There has been further improvement in the size of the spiculated opacity in the superior segment of the right lower lobe. There is a new small right pleural effusion. No localized pulmonary inflammatory process is identified. IMPRESSION: The anterior right upper lobe pleural-based nodular opacity measures 20 x 11 mm on today's examination, smaller than the 22 x 19 mm measurement obtained 11/15/2023. There has been further improvement in the spiculated opacity in the superior segment of the right lower lobe. A new small right pleural effusion is present. Reviewed, Interpreted and Dictated by Jose Rosa III, MD Transcribed by Jenna Brar Authenticated and . [facility]
--- NOTE | 2024-02-28 07:51 | CT_ITS ---
FINAL REPORT CLINICAL HISTORY: lung cancer COMPARISON: 11/15/2023 FINDINGS: CT OF THE ABDOMEN AND PELVIS WITH CONTRAST Axial CT images of the abdomen and pelvis were obtained after the administration of oral and iv contrast. Coronal and sagittal reformatted images were also obtained and reviewed.This study was performed with techniques to keep radiation doses as low as reasonably achievable (ALARA). Individualized dose reduction techniques using automated exposure control or adjustment of mA and/or kV according to the patient's size were employed. Abdomen: A new small right pleural effusion is noted when compared to the prior exam. Multiple chronic rib fractures are identified. The heart is normal in size. The liver has an unremarkable appearance, without evidence of mass or biliary ductal dilatation. The spleen is unremarkable. No adrenal mass is present. The pancreas has an unremarkable appearance. There is mild posterior left renal scarring present. No evidence of renal mass or hydronephrosis is present. Diffuse vascular calcifications are identified. The aorta is normal in caliber. There is no free fluid or adenopathy. No mass or abnormal fluid collection is seen. Pelvis: The appendix is not well-visualized. A large amount of stool is present in the colon. The urinary bladder is unremarkable. No inflammatory process is seen. There is no evidence of mass or adenopathy. There is no evidence of bowel obstruction. There are postoperative changes in the lower lumbar spine and right iliac bone, also seen on the prior exam. IMPRESSION: No evidence of acute intra-abdominal process. Large amount of stool present in the colon. Reviewed, Interpreted and Dictated by Jose Rosa III, MD Transcribed by Jenna Brar Authenticated and . [facility]
[2024-02-28] MEDS: BARIUM SULFATE(READI-CAT2);450ML BOTTLE 450 ML PO (08:25)
[2024-02-28] MEDS: IOPAMIDOL-370 (76%);100ML BOTTLE 75 ML IV (08:25)
[2024-02-28] MEDS: SODIUM CHLORIDE 0.9% 10ML SYR (RAD ONLY) 10 ML IV (08:25)
== END 2024-02-28 23:59 | disposition home or self-care (01) ==
PROVIDERS: PCP Family Medicine; Visit Provider Internal Medicine Medical Oncology
DX: C34.90 Malignant neoplasm of unspecified part of unspecified bronchus or lung (principal)
CPT/HCPCS: 71260; 74177; Q9967

== ENCOUNTER 2024-03-07 10:19 | Outpatient (CLI) | payer MEDICARE, SELFPAY ==
[2024-03-07 10:20] VITALS: BMI 14.1
[2024-03-07 10:39] LABS: Basophils # 0.1 K/mm3 (0-0.2); Basophils % 1.1 % (0.1-2.0); Eosinophils # 0.8 K/mm3 (0.0-0.4); Eosinophils % 10.3 % (0.1-12.0); Hematocrit 38.8 % (42.0-52.0); Hemoglobin 12.8 g/dL (14.1-18.0); Lymphocytes # 0.8 K/mm3 (0.7-4.5); Lymphocytes % 10.4 % (10-50); Mean Corpuscular Hemoglobin 33.4 pg (27.0-31.2); Mean Corpuscular Volume 101.3 fl (80-94); Mean Platelet Volume 7.9 fl (7.4-10.4); Monocytes # 0.4 K/mm3 (0.1-1.0); Monocytes % 5.3 % (1.7-9.3); Neutrophils # 5.8 K/mm3 (1.8-7.8); Platelet Count 288 K/mm3 (142-424); Red Blood Count 3.83 M/mm3 (4.60-6.20); Red Cell Distribution Width 13.8 % (11.5-17.5)
[2024-03-07 10:49] LABS: Alanine Aminotransferase 20 U/L (12-78); Albumin Level 3.9 g/dl (3.5-5.0); Albumin/Globulin Ratio 1.3 (1.1-1.8); Alkaline Phosphatase 141 U/L (38-126); Anion Gap 12.3 mEq/L (5-15); Aspartate Amino Transferase 29 U/L (17-59); Blood Urea Nitrogen 16 mg/dl (9-20); Calcium 9.2 mg/dl (8.4-10.2); Carbon Dioxide 26 mmol/L (22.0-30.0); Chloride 105 mmol/L (98-107); Creatinine Clearance Estimated 47 mL/min (50-200); Estimated Glomerular Filt Rate 96 ml/min (>60); GFR (African American) 116 ML/MIN (>60); Glucose 88 mg/dl (74-100); Potassium 4.3 mmoL/L (3.5-5.1); Sodium 139 mmol/L (136-145); Total Protein,Serum 6.9 g/dl (6.3-8.2)
[2024-03-07] MEDS: SODIUM CHLORIDE 0.9% 50ML BAG 50 ML IV (11:19)
[2024-03-07] MEDS: SODIUM CHLORIDE 0.9% 10ML FLUSH SYRINGE 10 ML IV (11:20)
[2024-03-07 11:32] VITALS: BP 111/65; PULSE 94; RESP 18; TEMP 36.7; O2SAT 98
[2024-03-07] MEDS: SODIUM CHLORIDE 0.9% IV (11:32)
[2024-03-07] MEDS: DURVALUMAB IV (11:32)
[2024-03-07 12:02] VITALS: BP 104/66; PULSE 88; RESP 18; O2SAT 98
[2024-03-07 12:40] VITALS: BP 108/59; PULSE 90; RESP 18; O2SAT 98
== END 2024-03-07 12:40 | disposition home or self-care (01) ==
LOC: INF 10:20
PROVIDERS: PCP Family Medicine; Visit Provider Internal Medicine Medical Oncology
DX: C34.11 Malignant neoplasm of upper lobe, right bronchus or lung (principal)
CPT/HCPCS: 80053; 85025; 96413; J9173

== ENCOUNTER 2024-04-02 08:00 | Outpatient (RCR) | payer MEDICARE, SELFPAY ==
--- NOTE | 2024-02-20 08:40 | HMH.PTOPWND ---
Rehab Outpt Wound Evaluation Rehab OP Wound Evaluation Start: 02/20/24 08:08 Freq: Status: Active Protocol: Document 02/20/24 08:11 HORACE (Rec: 02/20/24 08:40 PHORKOBE [id number]) E-signed By Jass Allan, PT Subjective/History History History This is the initial PT wound care eval for Demetra Magallon , 68 yowm who presents with Sacral PI x ~6mos mos overall. He reports minimal tenderness and pain at this time, worse with prolonged sitting. He was recently hospitalized ~5 mos ago with PNA and wound care was performed by this therapist while admitted. He has complicated course of healing due to underlying hx of lung cancer with recent hx of chemo and radiation, as well as COPD and the aforementioned PNA. He lost considerable weight over the past 1-2 yrs resulting in less cushion around all bony prominences, but has gained some wt over the past 2-3 mos now. Subjective Subjective He reports no pain at this time, 0/10, and minimal tenderness to palpation in and around the wound bed, 1/4. He reports his has been changing his dressings daily due to drainage amount. Wound Eval Wound Sacrum Wound Type Pressure Ulcer Is This a Chronic Wound Yes Wound Staging Stage III Query Text:Stage I - Unbroken, red skin, no blanching. Stage II - Skin broken, superficial skin loss involving epidermis alone or also dermis. Partial loss of skin layers. Stage III - Pressure area involves epidermis, dermis and subcutaneous tissue, full thickness skin loss. Stage IV - Pressure area involves epidermis, subcutaneous tissue, bone and other supportive tissue. Full thickness skin loss with extensive destruction of underlying tissue and structures. Wound Length (cm) 4.6 Wound Width (cm) 3.5 Wound Depth (cm) 0.2 Wound Bed Appearance Beefy Red,Yellow Percentage Granulated (%) 80 Percentage of Slough (%) 20 Wound Margins Description Well Defined Surrounding Tissue Appearance [place] Drainage Description Serous Drainage Amount Moderate Wound Topical Solution/Irrigant Saline Irrigant Primary Dressing collagen Comment puracol Wound Debridement Method Sharps,Gauze,Mechanical Wound Debridement Amount of Tissue Minimal Removed Dressing Change Patient Tolerance Tolerated Well Cochran-Vega Wound Assessment Tool Assessment Wound size 2=Length x Width 4--<16 sq cm Wound depth 3=Full thickness skin loss involving damage or necrosis of Wound edges 3=Well-defined, not attached to wound base Wound undermining 2=Undermining <2 cm in any area Necrotic tissue type 2=White/mcgee non-viable tissue &/or non-adherent yellow slough Necrotic tissue amount 2=<25% of wound bed covered Exudate type 4=Serous: thin, watery, clear Exudate amount 4=Moderate Skin color surrounding wound 1=[place] or normal for ethnic group Peripheral tissue edema 1=No swelling or edema Peripheral tissue induration 1=None present Granulation tissue 2=Bright, beefy red;75% to 100 % of wound filled &/or tissue overgrowth Epithelialization 5= < 25% wound covered Wound assessment total score 32 Wound Problems/Impairments Impairments Problems/Impairmments Impaired Shower/Bathing,Wound Care Needs,Impaired Self Care/ Self Management Prognosis Rehab Potential Good Comment Skilled therapy is indicated to reduce overall wound surface area and return pt to PLOF. Clinical Impression Consistent with Diagnosis Yes Short Term Goals Number of Weeks 4 Decrease Wound Area Yes: by 25% [facility] Goals Number of Weeks 6-8 Decrease Wound Area Yes: by 75% Patient to be Ind w/ Home Wound Care/ Yes Dressing Changes Outpatient Therapy Plan of Care Treatment Plan May Include Therapeutic Exercise Including Home Yes Exercise Program Manual Therapy Techniques Yes Therapeutic Activities to Return to Yes Previous Functional/Work Level ADL/Self Care Education Yes Wound Care Yes Eval/Re-Eval Yes Frequency Times per week 1-2 Duration Number of Weeks 6-8 Addendums This patient is a candidate for social No or vocational rehab? Patient/Guardian verbally acknowledges Yes understanding of treatment program and consents to further treatment? Patient/Guardian verbally acknowledges Yes understanding of diagnosis, prognosis and goals for treatment? Eval Complexity PT Charges 44503 - High Complexity PHYSICIAN CERTIFICATION: I certify the specified therapy services for Demetra Magallon JR are required, authorized, and reviewed every 30 days.
--- NOTE | 2024-04-02 10:17 | HMH.RHREAS ---
Rehab Reassessment Rehab OP Re-assessment Start: 02/20/24 08:08 Freq: Status: Active Protocol: Document 04/02/24 10:08 HORACE (Rec: 04/02/24 10:16 HORACE [id number]) E-signed By Jass Allan, PT Rehab Re-assessment Subjective Subjective Pt reports he suffered a fall at home ~ 2 wks ago. I fell right on that place on my backside, too. He reports He remains sore, but overall no serious injury from his fall. His reports his lexi- wound skin has been more irritated over the past few weeks due to needing tape to hold dressings in place. Objective Objective Notes Sacral wound: L= 4.2 cm, W= 3. 0 cm, D= 0.1 cm. Wound bed appears mostly healthy with granulation tissue present. Drainage is serous in nature at this time. Per-wound skin in irritated and erythematous at this time ~4-5 cm surrounding the wound. Wound healed by 22% wound surface areas vs IE. Assessment Progress Assessment Progressing as Expected Assessment Notes Pt continues to have open sore in the sacral area with difficulty maintaining pressure relief due to the location of the wound. He has shown some healing of the wound and depth is decreased throughout the wound bed. Co- morbid conditions significantly limit the speed of his healing. Skilled therapy remains indicated to reduce overall wound surface area and to return pt to PLOF. Patient goals met ST/1 LT/2 Plan Plan Continue per initial POC. Frequency of Therapy 1 x every 2 wks Duration of therapy 8 wks Time and Billing Re-Eval Time 9 Re-Eval Billing Units 0 Charge for PT reassessment? No PHYSICIAN CERTIFICATION: I certify the specified therapy services for Demetra Magallon JR are required, authorized, and reviewed every 30 days.
== END 2024-04-02 23:59 | disposition home or self-care (01) ==
LOC: PT 08:00
PROVIDERS: Visit Provider Family Medicine
DX: L89.159 Pressure ulcer of sacral region, unspecified stage (principal)
CPT/HCPCS: 97163; 97597

== ENCOUNTER 2024-04-04 10:05 | Outpatient (CLI) | payer MEDICARE, SELFPAY ==
[2024-04-04 10:33] VITALS: BMI 14.1
[2024-04-04 10:46] LABS: Albumin Level 3.6 g/dl (3.5-5.0); Chloride 109 mmol/L (98-107); Sodium 137 mmol/L (136-145)
[2024-04-04 10:48] LABS: Blood Urea Nitrogen 16 mg/dl (9-20); Creatinine Clearance Estimated 43 mL/min (50-200); Estimated Glomerular Filt Rate 66 ml/min (>60); GFR (African American) 80 ML/MIN (>60)
[2024-04-04 10:49] LABS: Alanine Aminotransferase 20 U/L (12-78); Albumin/Globulin Ratio 1.2 (1.1-1.8); Alkaline Phosphatase 147 U/L (38-126); Aspartate Amino Transferase 28 U/L (17-59); Basophils # 0.1 K/mm3 (0-0.2); Basophils % 0.8 % (0.1-2.0); Bilirubin,Total 1.7 mg/dl (0.2-1.3); Calcium 8.9 mg/dl (8.4-10.2); Carbon Dioxide 24 mmol/L (22.0-30.0); Eosinophils # 0.7 K/mm3 (0.0-0.4); Eosinophils % 6.4 % (0.1-12.0); Globulin 3.1 g/dL (1.3-3.2); Glucose 92 mg/dl (74-100); Hematocrit 38.1 % (42.0-52.0); Hemoglobin 12.7 g/dL (14.1-18.0); Lymphocytes % 10.2 % (10-50); Mean Corpuscular HGB Conc 33.3 g/dL (31.8-35.4); Mean Corpuscular Hemoglobin 33.5 pg (27.0-31.2); Mean Corpuscular Volume 100.6 fl (80-94); Mean Platelet Volume 8.5 fl (7.4-10.4); Monocytes # 0.7 K/mm3 (0.1-1.0); Monocytes % 6.4 % (1.7-9.3); Neutrophils # 7.8 K/mm3 (1.8-7.8); Neutrophils % 76.3 % (37.0-80.0); Platelet Count 242 K/mm3 (142-424); Red Blood Count 3.79 M/mm3 (4.60-6.20); Red Cell Distribution Width 13.9 % (11.5-17.5); Total Protein,Serum 6.7 g/dl (6.3-8.2); White Blood Count 10.2 K/mm3 (4.8-10.8)
[2024-04-04] MEDS: SODIUM CHLORIDE 0.9% IV (11:17)
[2024-04-04] MEDS: DURVALUMAB IV (11:17)
[2024-04-04] MEDS: SODIUM CHLORIDE 0.9% 50ML BAG 50 ML IV (11:17)
[2024-04-04 11:20] VITALS: BP 127/55; PULSE 99; RESP 19; O2SAT 97
[2024-04-04 12:40] VITALS: BP 97/44; PULSE 83; RESP 18; O2SAT 96
== END 2024-04-04 12:40 | disposition home or self-care (01) ==
LOC: INF 10:06
PROVIDERS: PCP Family Medicine; Visit Provider Internal Medicine Medical Oncology
DX: C34.11 Malignant neoplasm of upper lobe, right bronchus or lung (principal)
CPT/HCPCS: 80053; 85025; 96413; J9173

== ENCOUNTER 2024-04-18 10:08 | Outpatient (CLI) | payer MEDICARE, SELFPAY ==
--- NOTE | 2024-04-18 10:15 | PC.NURSE ---
1015-collected labs via venipuncture stick in right ac with butterfly needle;pt to d/c home
[2024-04-18 10:55] LABS: Albumin Level 3.4 g/dl (3.5-5.0); Chloride 108 mmol/L (98-107); Potassium 4.3 mmoL/L (3.5-5.1); Sodium 137 mmol/L (136-145)
[2024-04-18 10:58] LABS: Alanine Aminotransferase 25 U/L (12-78); Albumin/Globulin Ratio 1.2 (1.1-1.8); Alkaline Phosphatase 175 U/L (38-126); Anion Gap 6.3 mEq/L (5-15); Aspartate Amino Transferase 37 U/L (17-59); Bilirubin,Total 0.7 mg/dl (0.2-1.3); Blood Urea Nitrogen 14 mg/dl (9-20); Calcium 9.2 mg/dl (8.4-10.2); Carbon Dioxide 27 mmol/L (22.0-30.0); Estimated Glomerular Filt Rate 83 ml/min (>60); GFR (African American) 101 ML/MIN (>60); Globulin 2.9 g/dL (1.3-3.2); Glucose 100 mg/dl (74-100); Total Protein,Serum 6.3 g/dl (6.3-8.2)
== END 2024-04-18 10:20 | disposition home or self-care (01) ==
LOC: INF 10:09
PROVIDERS: PCP Family Medicine; Visit Provider Internal Medicine Medical Oncology
DX: C34.90 Malignant neoplasm of unspecified part of unspecified bronchus or lung (principal)
CPT/HCPCS: 36415; 80053

== ENCOUNTER 2024-05-08 09:33 | Outpatient (CLI) | payer MEDICARE, SELFPAY ==
[2024-05-08 09:39] VITALS: BMI 16.7
[2024-05-08 09:48] LABS: Basophils # 0.1 K/mm3 (0-0.2); Basophils % 1.1 % (0.1-2.0); Eosinophils # 1.1 K/mm3 (0.0-0.4); Eosinophils % 9.8 % (0.1-12.0); Hematocrit 44.2 % (42.0-52.0); Hemoglobin 14.7 g/dL (14.1-18.0); Lymphocytes # 1.2 K/mm3 (0.7-4.5); Mean Corpuscular HGB Conc 33.3 g/dL (31.8-35.4); Mean Corpuscular Hemoglobin 31.7 pg (27.0-31.2); Mean Corpuscular Volume 95.3 fl (80-94); Mean Platelet Volume 9.9 fl (7.4-10.4); Monocytes # 0.6 K/mm3 (0.1-1.0); Monocytes % 5.5 % (1.7-9.3); Neutrophils # 7.9 K/mm3 (1.8-7.8); Neutrophils % 72.3 % (37.0-80.0); Platelet Count 357 K/mm3 (142-424); Red Blood Count 4.64 M/mm3 (4.60-6.20); Red Cell Distribution Width 12.6 % (11.5-17.5)
[2024-05-08 10:00] LABS: Alanine Aminotransferase 24 U/L (12-78); Albumin Level 4.3 g/dl (3.5-5.0); Albumin/Globulin Ratio 1.1 (1.1-1.8); Alkaline Phosphatase 91 U/L (38-126); Anion Gap 18.1 mEq/L (5-15); Aspartate Amino Transferase 37 U/L (17-59); Blood Urea Nitrogen 14 mg/dl (9-20); Calcium 9.5 mg/dl (8.4-10.2); Carbon Dioxide 23 mmol/L (22.0-30.0); Chloride 101 mmol/L (98-107); Creatinine Clearance Estimated 56 mL/min (50-200); Estimated Glomerular Filt Rate 96 ml/min (>60); GFR (African American) 116 ML/MIN (>60); Globulin 3.8 g/dL (1.3-3.2); Glucose 118 mg/dl (74-100); Potassium 4.1 mmoL/L (3.5-5.1); Sodium 138 mmol/L (136-145); Total Protein,Serum 8.1 g/dl (6.3-8.2)
--- NOTE | 2024-05-08 10:33 | PC.NURSE ---
1033-elaine yoder, rt here to do ekg
== END 2024-05-08 10:45 | disposition home or self-care (01) ==
LOC: INF 09:34
PROVIDERS: PCP Family Medicine; Visit Provider Internal Medicine Medical Oncology
DX: C34.90 Malignant neoplasm of unspecified part of unspecified bronchus or lung (principal)
CPT/HCPCS: 36415; 80053; 85025; 93005

== ENCOUNTER 2024-05-12 06:36 | Inpatient (IN) | payer MEDICARE, SELFPAY ==
[2024-05-12] VITALS (15 sets, daily range): BP systolic 112–151; BP diastolic 58–94; PULSE 100–126; RESP 17–29; TEMP 36.6–36.9; O2SAT 86–97; BMI 16.2; BMI 15.7
--- NOTE | 2024-05-12 06:41 | CT_ITS ---
PROCEDURE INFORMATION: Exam: CTA Chest With Contrast Exam date and time: 05/12/2024 8:10 AM Age: 68 years old Clinical indication: Shortness of breath; Additional info: SOA known CA TECHNIQUE: Imaging protocol: Computed tomographic angiography of the chest with contrast. Exam focused on the arteries. 3D rendering (Not supervised by radiologist): MIP and/or 3D reconstructed images were created by the technologist. Radiation optimization: All CT scans at this facility use at least one of these dose optimization techniques: automated exposure control; mA and/or kV adjustment per patient size (includes targeted exams where dose is matched to clinical indication); or iterative reconstruction. Contrast material: ISOVUE 370; Contrast volume: 70 ml; Contrast route: INTRAVENOUS (IV); COMPARISON: CT ANGIO CHEST PE PROTOCOL 05/12/2024 8:10 AM FINDINGS: Pulmonary arteries: No evidence of pulmonary embolus to the segmental level. Aorta: No aneurysm of the aorta. No dissection of the aorta. Lungs: Heterogeneous mass in the anterior aspect of the right upper lobe measures 25 x 16 mm. It has increased in size. This may represent the lung cancer. Consolidation in the right middle lobe and right lower lobe. Diffuse ground-glass opacities bilaterally. Findings may reflect multifocal pneumonia. Septal emphysematous changes Pleural spaces: Large right pleural effusion.. 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 No cardiomegaly. No pericardial effusion. Lymph nodes: Large calcified mediastinal nodes consistent with prior granulomatous disease Bones/joints: Unremarkable. No acute fracture. Soft tissues: Unremarkable. IMPRESSION: 1. No evidence of pulmonary embolus to the segmental level. 2. No aneurysm of the aorta. 3. Heterogeneous mass in the anterior aspect of the right upper lobe measures 25 x 16 mm. It has increased in size. This may represent the lung cancer. 4. Large right pleural effusion.. 5. Consolidation in the right middle lobe and right lower lobe. Diffuse ground-glass opacities bilaterally. Findings may reflect multifocal pneumonia.
--- NOTE | 2024-05-12 06:47 | ECG_ITS ---
APPROVED REPORT Exam: Resting ECG HR:125 bpm ECG Measurements Heart Rate 125 AXES QRSd 72 QRS 100 QT 323 T 79 QTc 397 Conclusion Sinus tachycardia BORDERLINE RIGHT AXIS DEVIATION [QRS AXIS > 90] NONSPECIFIC ST & T-WAVE ABNORMALITY No STEMI Electronically signed by : BOBY BLANKENSHIP, 05/13/2024 08:25:51
--- NOTE | 2024-05-12 06:50 | XR_ITS ---
PROCEDURE INFORMATION: Exam: XR Chest Exam date and time: 05/12/2024 8:28 AM Age: 68 years old Clinical indication: Shortness of breath; Additional info: SOA severely diministed rll, known CA TECHNIQUE: Imaging protocol: Radiologic exam of the chest. Views: 1 view. COMPARISON: CT ANGIO CHEST PE PROTOCOL 05/12/2024 8:10 AM FINDINGS: Lungs: Hyperexpanded lung arceo consistent with COPD. Extensive honeycomb appearance in the left midlung and left base consistent with chronic lung changes. Consolidation in the right midlung and right base. Diffuse ground-glass opacities bilaterally. Findings may reflect pneumonia.. Pleural spaces: Large right pleural effusion. Heart/Mediastinum: Unremarkable. No cardiomegaly. Bones/joints: Unremarkable. IMPRESSION: 1. Hyperexpanded lung arceo consistent with COPD. Extensive honeycomb appearance in the left midlung and left base consistent with chronic lung changes. 2. Large right pleural effusion. 3. Consolidation in the right midlung and right base. Diffuse ground-glass opacities bilaterally. Findings may reflect pneumonia..
[2024-05-12] MEDS: LACTATED RINGERS 999 ML IV (06:59)
--- NOTE | 2024-05-12 06:59 | [facility].EDCP ---
Discharge Plan Disposition Patient Disposition: Admitted Condition: Good Clinical Impressions Clinical Impression: Malignant neoplasm of right upper lobe of lung, Pleural effusion on right, Acute hypoxemic respiratory failure Discharge ED Provider: Sheila Weiner HPI <Belle Blackwell MD - Last Filed: 05/12/24 07:14> General Chief Complaint: Shortness of Breath/Dyspnea Stated Complaint: SOA, cough Time Seen by Provider: 05/12/24 06:40 Mode of Arrival: Wheelchair Source of Information: Patient Limitations: No Limitations Description of Symptoms (Recalled from ER Triage Doc. by RN): Patient reports SOA since monday. States it is no worse, but Dr. Lanza told him he should come in. History of Present Illness HPI narrative: 68-year-old male with known adenocarcinoma of the right lung presents to the ER for concerns of shortness of breath. Patient reports he has had notable shortness of breath since Monday, 2 days ago. Patient reports he went to oncology this week as scheduled but due to his high heart rate and congestion they did not perform his normal immunotherapy treatment and told him to come back in 1 week for reevaluation. Reportedly he had an EKG done at that appointment. Because he has continued being short of breath, he was instructed by his PCP to come in to be evaluated for possible pneumonia. Patient denies fevers, chills, productive cough, vomiting, diarrhea, or other associated symptoms. He denies any headache, numbness, tingling, or weakness. He does not have a history of cardiac abnormality, he does not take a diuretic. Review of previous records demonstrates a history of COPD. Related Data Home Medications ?Medication ?Instructions ?Recorded ?Confirmed diazepam 10 mg tablet 10 mg PO TIDP PRN Anxiety 09/25/23 05/08/24 gabapentin 600 mg tablet 600 mg PO QID 09/25/23 05/08/24 levocetirizine 5 mg tablet 5 mg PO DAILY 09/25/23 05/08/24 olanzapine 2.5 mg tablet 2.5 mg PO DAILY 09/25/23 05/08/24 oxycodone 5 mg tablet 5 mg PO Q6HP PRN Severe Pain 09/25/23 05/08/24 (Scale Score 7-10) prochlorperazine maleate 10 mg 10 mg PO Q6HP PRN Nausea And 09/25/23 05/08/24 tablet (Compazine) Vomiting sulindac 200 mg tablet 200 mg PO BID 09/25/23 05/08/24 dexamethasone 4 mg tablet 4 mg PO BID 09/26/23 05/08/24 Previous Rx's ?Medication ?Instructions ?Recorded ipratropium 0.5 mg-albuterol 3 mg 3 ml inhalation Q6HP PRN Shortness 09/28/23 (2.5 mg base)/3 mL nebulization Of Breath #120 mL soln magnesium oxide 400 mg (241.3 mg 400 mg PO BID #60 tabs 09/28/23 magnesium) tablet megestrol 400 mg/10 mL (40 mg/mL) 400 mg (10 mL) PO DAILY #250 mL 09/28/23 oral suspension potassium chloride 20 mEq 20 meq PO DAILY #30 tabs 09/28/23 tablet,extended release(part/cryst) (Klor-Con M) sulfamethoxazole 800 1 tab PO BID lung infection #20 10/02/23 mg-trimethoprim 160 mg tablet tabs sulfamethoxazole 800 1 tab PO BID 14 days #28 tabs 10/02/23 mg-trimethoprim 160 mg tablet (Bactrim DS) tiotropium 2.5 mcg-olodaterol 2.5 2 puff inhalation DAILY 90 days #4 10/12/23 mcg/actuation mist for inhalation grams (Stiolto Respimat) Allergies Allergy/AdvReac Type Severity Reaction Status Date / Time Iodinated Contrast Media Allergy Intermediate Hives Verified 05/08/24 09:58 [facility] <Belle Blackwell MD - Last Filed: 05/12/24 07:14> [facility] Disclaimer: The information contained in this section may have been updated after the patient was seen, as this information can be updated by other users. Medical History Primary lung cancer Pleural effusion on right Bilateral impacted cerumen Parotid nodule Pneumonia Dysphagia Dyspnea on exertion Lung cancer Tobacco abuse disorder COPD mixed type Mediastinal lymphadenopathy Hilar lymphadenopathy Multiple lung nodules on CT Smoking greater than 30 pack years Esophageal obstruction due to food impaction Surgical History History of colonoscopy History of eye surgery History of back surgery Family History Other Leukemia Lung cancer Social History Smoking Status: Unknown if ever smoked how long ago did patient quit smokin weeks second hand exposure: Yes alcohol intake: never substance use type: denies use current occupational status: retired Travel in the last 8 weeks: None household members: spouse housing: house lives independently: No marital status: education level: high school service: No current occupational exposures/hazards: No caffeine: Yes firearms in home: No do you feel safe at home: Yes victim of physical abuse: No victim of emotional abuse: No victim of sexual abuse: No would you like helpful sources: No Have you lived/traveled outside [place] in past 30 days?: No Contact w/someone who lives/traveled outside US past 30 days?: No Exposure to someone with infectious disease in past 14 days?: No Do you have a fever (greater than 100.4 F or 38 C)?: No Have you tested positive for COVID-19: No Exposed to someone with COVID-19 in past 14 days?: No Do you have a sore throat?: No Do you have a cough?: Yes Do you have any weakness?: No Do you have any diarrhea?: No Are you experiencing any unusual bleeding?: No Do you have any muscle aches/pain?: No Do you have any abdominal pain?: No Are you experiencing loss of taste or smell?: No Other Medical History Have you received the Flu Vaccine for this season: No Have you received the Pneumonia Vaccine: No <Belle Blackwell MD - Last Filed: 05/12/24 07:14> ROS Obtained: Yes Systems reviewed as appropriate & no additional complaints except as documented per HPI Physical Exam <Belle Blackwell MD - Last Filed: 05/12/24 07:14> General General appearance: alert, in no apparent distress and cachectic Comment: Chronically ill-appearing Head Head exam: atraumatic and normocephalic Eye Eye exam: Present PERRL and EOMI ENT ENT exam: Present mucous membranes moist Neck Neck exam: Present normal inspection and full ROM Chest Chest inspection: Present symmetric chest wall rise; Absent tenderness Respiratory Respiratory exam: Present other (Tachypneic but no retractions, saturating in the low to mid 90s on room air); Absent normal lung sounds bilaterally (Good air movement throughout the left lung arceo, patient has decent air movement in the right upper lung, however the right lower lung breath sounds are severely diminished/absent), respiratory distress, wheezes or stridor Cardiovascular Cardiovascular exam: Present normal rhythm and tachycardia Abdominal Exam Abdominal exam: Present soft; Absent distention or tenderness Extremities Exam Extremities exam: Present full ROM; Absent edema or joint swelling Neurological Exam Neurological exam: Present alert and oriented X3; Absent motor sensory deficit Psychiatric Psychiatric exam: Present normal affect and normal mood Skin Skin exam: Present warm and dry HEART Score <Belle Blackwell MD - Last Filed: 05/12/24 07:14> HEART Score HEART Score assessment performed?: No <Sheila Weiner DO - Last Filed: 05/12/24 09:28> HEART Score HEART Score assessment performed?: Yes History (anamnesis): Slightly suspicious ECG: Non-specific disturbance Age: >65 years Risk factors: 3 or more risk factors Troponin: </= normal limit HEART Score: 5 Critical Care <Belle Blackwell MD - Last Filed: 05/12/24 07:14> Critical Care Time Critical Care Time: No Medical Decision Making <Belle Blackwell MD - Last Filed: 05/12/24 07:14> Medical Records Medical records reviewed: Yes I reviewed the patient's medical records. MR Comment: Review of oncology note from 05/08/2024 demonstrates patient has known right upper lobe stage IIIb adenocarcinoma. He has been on Durvalumab since November 2023. On 05/08 he was having upper respiratory congestion without fevers or drainage. He was tachycardic to 138 with pulse ox 95% on room air and normotensive during that visit. Plan was to return to clinic in 1 week for reevaluation and potential administration of his immunotherapy at that time. Homero Inquiry Pt receiving controlled substance: No Vital Signs Vital Signs: 05/12/24 06:54 05/12/24 07:07 05/12/24 07:15 Temperature 97.9 F Temperature Source Oral Pulse Rate 124 H Pulse Rate [Right Radial] 126 H Respiratory Rate 18 24 Blood Pressure 140/77 Blood Pressure [Right Arm] 145/94 H Blood Pressure Mean 98 Blood Pressure Mean [Right Arm] 111 Blood Pressure Source [Right Arm] Automatic Cuff Blood Pressure Position [Right Arm] Supine 02 Sat by Pulse Oximetry 95 94 L Oxygen Delivery Method Room Air Nasal Cannula Oxygen Flow Rate (LPM) 2 05/12/24 07:30 05/12/24 07:44 05/12/24 08:00 Temperature Temperature Source Pulse Rate 114 H 116 H 115 H Pulse Rate [Right Radial] Respiratory Rate 26 H 29 H 27 H Blood Pressure 143/65 H 143/65 H 136/68 Blood Pressure [Right Arm] Blood Pressure Mean Blood Pressure Mean [Right Arm] Blood Pressure Source [Right Arm] Blood Pressure Position [Right Arm] 02 Sat by Pulse Oximetry 95 93 L 92 L Oxygen Delivery Method Nasal Cannula Nasal Cannula Oxygen Flow Rate (LPM) 1.5 1.5 05/12/24 08:33 05/12/24 09:00 Temperature Temperature Source Pulse Rate 110 H 109 H Pulse Rate [Right Radial] Respiratory Rate 20 23 Blood Pressure 147/73 H 151/79 H Blood Pressure [Right Arm] Blood Pressure Mean Blood Pressure Mean [Right Arm] Blood Pressure Source [Right Arm] Blood Pressure Position [Right Arm] 02 Sat by Pulse Oximetry 94 L 97 Oxygen Delivery Method Nasal Cannula Nasal Cannula Oxygen Flow Rate (LPM) 1.5 1.5 Lab Data Labs: Lab Results 05/12/24 07:03: Chlamy pneumoniae PCR Not detected, Adenovirus (PCR) Not detected, B. pertussis DNA (PCR) Not detected, Coronavirus OC43 (PCR) Not detected, Coronavirus HKU1 (PCR) Not detected, Coronavirus 229E (PCR) Not detected, SARS-CoV-2 (PCR) Not detected, Coronavirus NL63 (PCR) Not detected, Human Metapneumovir PCR Not detected, Influenza A (H1) PCR Not detected, Influ A (H1N1/09) PCR Not detected, Influenza A (H3) PCR Not detected, Influenza Type A (PCR) Not detected, Influenza Type B (PCR) Not detected, M. pneumoniae (PCR) Not detected, Parainfluenza 1 (PCR) Not detected, Parainfluenza 2 (PCR) Not detected, Parainfluenza 3 (PCR) Not detected, Parainfluenza 4 (PCR) Not detected, RSV (PCR) Not detected, Entero/Rhino (PCR) Not detected 05/12/24 07:07: WBC 9.2, RBC 4.09 L, Hgb 13.2 L, Hct 38.4 L, MCV 93.9, MCH 32.3 H, MCHC 34.4, RDW 13.0, Plt Count 339, MPV 10.8 H, Neut % (Auto) 87.7 H, Lymph % (Auto) 4.6 L, Ogle % (Auto) 5.8, Eos % (Auto) 1.1, Baso % (Auto) 0.5, Neut # (Auto) 8.1 H, Lymph # (Auto) 0.4 L, Ogle # (Auto) 0.5, Eos # (Auto) 0.1, Baso # (Auto) 0.1, Sodium 135 L, Potassium 5.0, Chloride 102, Carbon Dioxide 22, Anion Gap 16.0 H, BUN 11, Creatinine 0.60 L, Estimated Creat Clear 53, Estimated GFR 133, Est GFR ( Amer) 161, Glucose 106 H, Calcium 9.1, Total Bilirubin 1.1, AST 35, ALT 21, Alkaline Phosphatase 60, Troponin I < 0.01, NT-Pro-B Natriuret Pep 693 H, Total Protein 6.4, Albumin 3.3 L, Globulin 3.1, Albumin/Globulin Ratio 1.1 05/12/24 07:11: VBG pH 7.36, VBG pCO2 37.0, VBG pO2 44.1 H, VBG HCO3 20.4 L, VBG Total CO2 21.6 L, VBG O2 Saturation 73.1 H, VBG Base Excess -5.0 L, VBG Lactic Acid 3.0 H 05/12/24 07:07 05/12/24 07:07 Response Orders (Tests/Meds): ED MEDICATIONS Generic Name Dose Route Start Last Admin Trade Name Freq PRN Reason Stop Dose Admin Acetaminophen 650 mg 05/12/24 09:12 Acetaminophen 325mg Tab PO 06/11/24 09:11 Q6HP PRN Fever or Mild Pain (1-3) Ibuprofen 600 mg 05/12/24 09:12 Ibuprofen 600 Mg Tablet PO 06/11/24 09:11 Q6HP PRN Fever or Mild Pain (1-3) Sodium Chloride 10 ml 05/12/24 08:34 05/12/24 08:36 Sodium Chloride 0.9% 10ml Syr (Rad Only) IV 06/11/24 08:33 10 ml NEEDED PRN Administration Maintain IV Site Discontinued Medications Generic Name Dose Route Start Last Admin Trade Name Alex PRN Reason Stop Dose Admin Albuterol/Ipratropium 3 ml 05/12/24 06:54 05/12/24 07:18 Ipratropium/Albuterol 3 Ml Neb IH 05/12/24 06:55 3 ml ONCE ONE Administration Diphenhydramine HCl 25 mg 05/12/24 06:59 05/12/24 07:13 Diphenhydramine 50mg/Ml Vial IV 05/12/24 07:00 25 mg ONCE ONE Administration Lactated Ringer's 1,650 mls @ 999 mls/hr 05/12/24 06:51 05/12/24 06:59 Lactated Ringer's 1000 Ml Bag IV 05/12/24 08:30 999 mls/hr .Q1H40M ONE Administration Piperacillin Sod/Tazobactam 50 mls @ 100 mls/hr 05/12/24 06:54 05/12/24 07:18 Sod 3.375 gm/ Sodium Chloride IV 05/12/24 07:23 100 mls/hr ONCE ONE Administration Vancomycin HCl 1,000 mg/ 250 mls @ 125 mls/hr 05/12/24 07:15 05/12/24 07:34 Sodium Chloride IV 05/12/24 09:14 125 mls/hr ONCE ONE Administration Iopamidol 70 ml 05/12/24 08:34 05/12/24 08:35 Iopamidol-370 (76%);100ml Bottle IV 05/12/24 08:35 70 ml ONCE ONE Administration Methylprednisolone Sodium Succinate 125 mg 05/12/24 06:59 05/12/24 07:13 Methylprednisolone Sod Succ 125mg Vial IV 05/12/24 07:00 125 mg ONCE ONE Administration Miscellaneous 1 each 05/12/24 07:00 05/12/24 07:21 Vancomycin Consult Request NOTAPPLIC 06/11/24 06:59 1 each [facility] Administration Sodium Chloride 50 ml 05/12/24 08:34 05/12/24 08:35 0.9 % Sodium Chloride 50 Ml Vial IV 05/12/24 08:35 50 ml ONCE ONE Administration ORDERS Category Date Time Status CT angio chest PE protocol Stat Cat Scan 05/12/24 06:41 Taken Pulmonology Consult [Consult to Pulmonology] [CONS] Cons 05/12/24 08:57 Active Routine CXR --portable [XR chest portable] Stat Exams 05/12/24 06:50 Taken Complete Blood Count Auto Diff Stat Lab 05/12/24 07:07 Completed Comprehensive Metabolic Panel Stat Lab 05/12/24 07:07 Completed Full Resp Panel w/COVID ([facility]) Routine Lab 05/12/24 07:03 Completed NT Pro Brain Natriuretic Pep. Stat Lab 05/12/24 07:07 Completed Prothrombin Time INR Stat Lab 05/12/24 06:41 Ordered Troponin I Q3H Lab 05/12/24 09:45 Ordered Troponin I Q3H Lab 05/12/24 12:45 Ordered Troponin I Stat Lab 05/12/24 07:07 Ordered Urinalysis and Microscopic Stat Lab 05/12/24 06:51 Ordered Blood Culture Stat Micro 05/12/24 07:07 Received VBG [Venous Blood Gas] Stat RT 05/12/24 07:11 Completed MDM Narrative Medical Decision Narrative: In summary, this 68-year-old male with comorbidities described in the HPI presents to the emergency department today with concerns of shortness of breath. Notably social determinants of health include a long history of smoking which increased his risk of lung cancer. On initial evaluation patient is tachycardic, tachypneic, blood pressure is reassuring, pulmonary exam notable for diminished to nearly absent breath sounds in the right lower lung field, cachectic, no peripheral edema, chronically ill-appearing. Differential diagnosis includes but is not limited to ACS, PE, pneumonia, pneumothorax, pleural effusion, pulmonary obstruction secondary to malignancy, viral syndrome, sepsis. Based on these concerns, I ordered serum labs, cardiac workup, chest x-ray, also ordered CTA PE however patient has a documented allergy to contrast media so he is being premedicated. ECG personally interpreted demonstrates significant artifact which complicates interpretation, repeat ECG will be necessary. On this ECG I can appreciate sinus tachycardia, borderline right axis deviation, rate 125, normal QTc, no STEMI. I have high concern for sepsis since patient is tachycardic, tachypneic, and has absent right lower lobe breath sounds. He is therefore receiving 30 mL/kg IV fluid bolus, broad-spectrum antibiotics, though he is not wheezing I am trying a DuoNeb on him given his history of COPD, and he is receiving Benadryl, Solu-Medrol for contrast allergy premedication prior to CTA PE. Labs and imaging pending at the time of physician handoff. Patient handed off to Dr. Weiner for continued management and disposition pending workup. <Sheila Weiner, DO - Last Filed: 05/12/24 09:28> Vital Signs Vital Signs: 05/12/24 06:54 05/12/24 07:07 05/12/24 07:15 Temperature 97.9 F Temperature Source Oral Pulse Rate 124 H Pulse Rate [Right Radial] 126 H Respiratory Rate 18 24 Blood Pressure 140/77 Blood Pressure [Right Arm] 145/94 H Blood Pressure Mean 98 Blood Pressure Mean [Right Arm] 111 Blood Pressure Source [Right Arm] Automatic Cuff Blood Pressure Position [Right Arm] Supine 02 Sat by Pulse Oximetry 95 94 L Oxygen Delivery Method Room Air Nasal Cannula Oxygen Flow Rate (LPM) 2 05/12/24 07:30 05/12/24 07:44 05/12/24 08:00 Temperature Temperature Source Pulse Rate 114 H 116 H 115 H Pulse Rate [Right Radial] Respiratory Rate 26 H 29 H 27 H Blood Pressure 143/65 H 143/65 H 136/68 Blood Pressure [Right Arm] Blood Pressure Mean Blood Pressure Mean [Right Arm] Blood Pressure Source [Right Arm] Blood Pressure Position [Right Arm] 02 Sat by Pulse Oximetry 95 93 L 92 L Oxygen Delivery Method Nasal Cannula Nasal Cannula Oxygen Flow Rate (LPM) 1.5 1.5 05/12/24 08:33 05/12/24 09:00 Temperature Temperature Source Pulse Rate 110 H 109 H Pulse Rate [Right Radial] Respiratory Rate 20 23 Blood Pressure 147/73 H 151/79 H Blood Pressure [Right Arm] Blood Pressure Mean Blood Pressure Mean [Right Arm] Blood Pressure Source [Right Arm] Blood Pressure Position [Right Arm] 02 Sat by Pulse Oximetry 94 L 97 Oxygen Delivery Method Nasal Cannula Nasal Cannula Oxygen Flow Rate (LPM) 1.5 1.5 Lab Data Labs: Lab Results 05/12/24 07:03: Chlamy pneumoniae PCR Not detected, Adenovirus (PCR) Not detected, B. pertussis DNA (PCR) Not detected, Coronavirus OC43 (PCR) Not detected, Coronavirus HKU1 (PCR) Not detected, Coronavirus 229E (PCR) Not detected, SARS-CoV-2 (PCR) Not detected, Coronavirus NL63 (PCR) Not detected, Human Metapneumovir PCR Not detected, Influenza A (H1) PCR Not detected, Influ A (H1N1/09) PCR Not detected, Influenza A (H3) PCR Not detected, Influenza Type A (PCR) Not detected, Influenza Type B (PCR) Not detected, M. pneumoniae (PCR) Not detected, Parainfluenza 1 (PCR) Not detected, Parainfluenza 2 (PCR) Not detected, Parainfluenza 3 (PCR) Not detected, Parainfluenza 4 (PCR) Not detected, RSV (PCR) Not detected, Entero/Rhino (PCR) Not detected 05/12/24 07:07: WBC 9.2, RBC 4.09 L, Hgb 13.2 L, Hct 38.4 L, MCV 93.9, MCH 32.3 H, MCHC 34.4, RDW 13.0, Plt Count 339, MPV 10.8 H, Neut % (Auto) 87.7 H, Lymph % (Auto) 4.6 L, Ogle % (Auto) 5.8, Eos % (Auto) 1.1, Baso % (Auto) 0.5, Neut # (Auto) 8.1 H, Lymph # (Auto) 0.4 L, Ogle # (Auto) 0.5, Eos # (Auto) 0.1, Baso # (Auto) 0.1, Sodium 135 L, Potassium 5.0, Chloride 102, Carbon Dioxide 22, Anion Gap 16.0 H, BUN 11, Creatinine 0.60 L, Estimated Creat Clear 53, Estimated GFR 133, Est GFR ( Amer) 161, Glucose 106 H, Calcium 9.1, Total Bilirubin 1.1, AST 35, ALT 21, Alkaline Phosphatase 60, Troponin I < 0.01, NT-Pro-B Natriuret Pep 693 H, Total Protein 6.4, Albumin 3.3 L, Globulin 3.1, Albumin/Globulin Ratio 1.1 05/12/24 07:11: VBG pH 7.36, VBG pCO2 37.0, VBG pO2 44.1 H, VBG HCO3 20.4 L, VBG Total CO2 21.6 L, VBG O2 Saturation 73.1 H, VBG Base Excess -5.0 L, VBG Lactic Acid 3.0 H Response Orders (Tests/Meds): ED MEDICATIONS Generic Name Dose Route Start Last Admin Trade Name Alex PRN Reason Stop Dose Admin Acetaminophen 650 mg 05/12/24 09:12 Acetaminophen 325mg Tab PO 06/11/24 09:11 Q6HP PRN Fever or Mild Pain (1-3) Ibuprofen 600 mg 05/12/24 09:12 Ibuprofen 600 Mg Tablet PO 06/11/24 09:11 Q6HP PRN Fever or Mild Pain (1-3) Sodium Chloride 10 ml 05/12/24 08:34 05/12/24 08:36 Sodium Chloride 0.9% 10ml Syr (Rad Only) IV 06/11/24 08:33 10 ml NEEDED PRN Administration Maintain IV Site Discontinued Medications Generic Name Dose Route Start Last Admin Trade Name Alex PRN Reason Stop Dose Admin Albuterol/Ipratropium 3 ml 05/12/24 06:54 05/12/24 07:18 Ipratropium/Albuterol 3 Ml Neb IH 05/12/24 06:55 3 ml ONCE ONE Administration Diphenhydramine HCl 25 mg 05/12/24 06:59 05/12/24 07:13 Diphenhydramine 50mg/Ml Vial IV 05/12/24 07:00 25 mg ONCE ONE Administration Lactated Ringer's 1,650 mls @ 999 mls/hr 05/12/24 06:51 05/12/24 06:59 Lactated Ringer's 1000 Ml Bag IV 05/12/24 08:30 999 mls/hr .Q1H40M ONE Administration Piperacillin Sod/Tazobactam 50 mls @ 100 mls/hr 05/12/24 06:54 05/12/24 07:18 Sod 3.375 gm/ Sodium Chloride IV 05/12/24 07:23 100 mls/hr ONCE ONE Administration Vancomycin HCl 1,000 mg/ 250 mls @ 125 mls/hr 05/12/24 07:15 05/12/24 07:34 Sodium Chloride IV 05/12/24 09:14 125 mls/hr ONCE ONE Administration Iopamidol 70 ml 05/12/24 08:34 05/12/24 08:35 Iopamidol-370 (76%);100ml Bottle IV 05/12/24 08:35 70 ml ONCE ONE Administration Methylprednisolone Sodium Succinate 125 mg 05/12/24 06:59 05/12/24 07:13 Methylprednisolone Sod Succ 125mg Vial IV 05/12/24 07:00 125 mg ONCE ONE Administration Miscellaneous 1 each 05/12/24 07:00 05/12/24 07:21 Vancomycin Consult Request NOTAPPLIC 06/11/24 06:59 1 each [facility] Administration Sodium Chloride 50 ml 05/12/24 08:34 05/12/24 08:35 0.9 % Sodium Chloride 50 Ml Vial IV 05/12/24 08:35 50 ml ONCE ONE Administration ORDERS Category Date Time Status CT angio chest PE protocol Stat Cat Scan 05/12/24 06:41 Taken Pulmonology Consult [Consult to Pulmonology] [CONS] Cons 05/12/24 08:57 Active Routine CXR --portable [XR chest portable] Stat Exams 05/12/24 06:50 Taken Complete Blood Count Auto Diff Stat Lab 05/12/24 07:07 Completed Comprehensive Metabolic Panel Stat Lab 05/12/24 07:07 Completed Full Resp Panel w/COVID ([facility]) Routine Lab 05/12/24 07:03 Completed NT Pro Brain Natriuretic Pep. Stat Lab 05/12/24 07:07 Completed Prothrombin Time INR Stat Lab 05/12/24 06:41 Ordered Troponin I Q3H Lab 05/12/24 09:45 Ordered Troponin I Q3H Lab 05/12/24 12:45 Ordered Troponin I Stat Lab 05/12/24 07:07 Ordered Urinalysis and Microscopic Stat Lab 05/12/24 06:51 Ordered Blood Culture Stat Micro 05/12/24 07:07 Received VBG [Venous Blood Gas] Stat RT 05/12/24 07:11 Completed MDM Narrative Medical Decision Narrative: In summary, this 68-year-old male with comorbidities described in the HPI presents to the emergency department today with concerns of shortness of breath. Notably social determinants of health include a long history of smoking which increased his risk of lung cancer. On initial evaluation patient is tachycardic, tachypneic, blood pressure is reassuring, pulmonary exam notable for diminished to nearly absent breath sounds in the right lower lung field, cachectic, no peripheral edema, chronically ill-appearing. Differential diagnosis includes but is not limited to ACS, PE, pneumonia, pneumothorax, pleural effusion, pulmonary obstruction secondary to malignancy, viral syndrome, sepsis. Based on these concerns, I ordered serum labs, cardiac workup, chest x-ray, also ordered CTA PE however patient has a documented allergy to contrast media so he is being premedicated. ECG personally interpreted demonstrates significant artifact which complicates interpretation, repeat ECG will be necessary. On this ECG I can appreciate sinus tachycardia, borderline right axis deviation, rate 125, normal QTc, no STEMI. I have high concern for sepsis since patient is tachycardic, tachypneic, and has absent right lower lobe breath sounds. He is therefore receiving 30 mL/kg IV fluid bolus, broad-spectrum antibiotics, though he is not wheezing I am trying a DuoNeb on him given his history of COPD, and he is receiving Benadryl, Solu-Medrol for contrast allergy premedication prior to CTA PE. Labs and imaging pending at the time of physician handoff. Patient handed off to Dr. Weiner for continued management and disposition pending workup. Husam DO: I assumed care of the patient at 7:00 AM after departure of the previous provider. On my assessment of the patient, he is requiring 2 L nasal cannula to maintain an O2 saturation of greater than 92%. He is mildly tachycardic with a heart rate in the low 100s, but otherwise vitals are reassuring. I independently interpreted CT scan prior to radiology read and noted very large right pleural effusion, significantly increased from prior CT back in February on my review of medical records. Please see radiology read for final interpretation. Labs demonstrates mild anemia with no significant leukocytosis, reassuring VBG with no significant respiratory acidosis, though lactic acid is mildly elevated, BNP that is stable compared to prior. Respiratory panel negative. I had an interactive discussion with Dr. Olivares with pulmonology who recommended admission for drainage of pleural effusion tomorrow given symptoms and presentation. I then had an interactive discussion with Dr. Lanza who accepted the patient for admission. Patient was admitted in stable condition.
[2024-05-12 07:10] LABS: Adenovirus,PCR Not Detected (NotDetected); Bordetella Pertussis Not Detected (NotDetected); Chlamydophila Pneumoniae, PCR Not Detected (NotDetected); Coronavirus 19, PCR Not Detected (NotDetected); Coronavirus 229E Not Detected (NotDetected); Coronavirus NL63 Not Detected (NotDetected); Coronavirus OC43 Not Detected (NotDetected); Coronovirus HKU1,PCR Not Detected (NotDetected); Human Metapneumovirus Not Detected (NotDetected); Influenza A, PCR Not Detected (NotDetected); Influenza AH1, 2009 Not Detected (NotDetected); Influenza AH1, PCR Not Detected (NotDetected); Influenza AH3,PCR Not Detected (NotDetected); Influenza B, PCR Not Detected (NotDetected); Mycoplasma Pneumoniae, PCR Not Detected (NotDetected); Parainfluenza 1, PCR Not Detected (NotDetected); Parainfluenza 2, PCR Not Detected (NotDetected); Parainfluenza 3, PCR Not Detected (NotDetected); Parainfluenza 4, PCR Not Detected (NotDetected); Respiratory Syncytial Virus Not Detected (NotDetected); Rhinovirus/Enterovirus Not Detected (NotDetected)
[2024-05-12] MEDS: diphenhydrAMINE 50MG/ML VIAL 25 MG IV (07:13)
[2024-05-12] MEDS: METHYLPREDNISOLONE SOD SUCC 125MG VIAL 125 MG IV (07:13)
--- NOTE | 2024-05-12 07:13 | PC.NURSE ---
urinal provided to pt. call light placed with pt. family at bedside.
[2024-05-12 07:18] LABS: VBG HCO3 20.4 mmol/L (23-30); VBG Oxygen Saturation 73.1 % (50-70); VBG PH 7.36 mmol/L (7.31-7.41); VBG PO2 44.1 mmol/L (28-40); VBG Total CO2 21.6 mmol/L (23-27)
[2024-05-12] MEDS: IPRATROPIUM/ALBUTEROL 3 ML NEB IH ×2 (07:18→20:00)
[2024-05-12] MEDS: PIPERACILLIN/TAZO 3.375 GM in 0.9 % SODIUM CHLORIDE 50 ML IV (07:18)
[2024-05-12] MEDS: VANCOMYCIN CONSULT REQUEST 1 EACH NOTAPPLIC (07:21)
[2024-05-12] MEDS: VANCOMYCIN HCL 1,000 MG in 0.9 % SODIUM CHLORIDE 250 ML 125 MG IV (07:34)
--- NOTE | 2024-05-12 07:46 | PC.NURSE ---
provided pt with warm blankets
--- NOTE | 2024-05-12 07:49 | HMH.ITSTN ---
GFR?completion/results were overrode for the use of contrast media by the Physician on a risk vs. benefit situation with this patient. Pt is pre medicated per Barry.
--- NOTE | 2024-05-12 08:14 | PC.NURSE ---
pt transported to radiology
--- NOTE | 2024-05-12 08:18 | PC.NURSE ---
called lab about labs, they are putting the samples of blood on to be spun at this time
--- NOTE | 2024-05-12 08:27 | PC.NURSE ---
pt returned from radiology
--- NOTE | 2024-05-12 08:28 | PC.NURSE ---
portable xray at bedside
[2024-05-12] MEDS: IOPAMIDOL-370 (76%);100ML BOTTLE 70 ML IV (08:35)
[2024-05-12] MEDS: 0.9 % SODIUM CHLORIDE 50 ML VIAL IV (08:35)
[2024-05-12] MEDS: SODIUM CHLORIDE 0.9% 10ML SYR (RAD ONLY) 10 ML IV (08:36)
--- NOTE | 2024-05-12 08:38 | PC.NURSE ---
on phone with dr melgar
[2024-05-12 08:48] LABS: Alanine Aminotransferase 21 U/L (12-78); Albumin Level 3.3 g/dl (3.5-5.0); Albumin/Globulin Ratio 1.1 (1.1-1.8); Alkaline Phosphatase 60 U/L (38-126); Aspartate Amino Transferase 35 U/L (17-59); Bilirubin,Total 1.1 mg/dl (0.2-1.3); Blood Urea Nitrogen 11 mg/dl (9-20); Calcium 9.1 mg/dl (8.4-10.2); Carbon Dioxide 22 mmol/L (22.0-30.0); Chloride 102 mmol/L (98-107); Creatinine Clearance Estimated 53 mL/min (50-200); Estimated Glomerular Filt Rate 133 ml/min (>60); GFR (African American) 161 ML/MIN (>60); Globulin 3.1 g/dL (1.3-3.2); Glucose 106 mg/dl (74-100); Sodium 135 mmol/L (136-145); Total Protein,Serum 6.4 g/dl (6.3-8.2)
--- NOTE | 2024-05-12 08:55 | PC.NURSE ---
PAGED DRAIN TECHNICIAN DOC
[2024-05-12 09:00] LABS: NT Pro Brain Natriuretic Pep. 693 pg/mL (0-125)
[2024-05-12 09:08] LABS: Troponin I < 0.01 ng/ml (0.00-0.034)
--- NOTE | 2024-05-12 09:12 | PC.NURSE ---
call made to overnight houseperson for bed placement
[2024-05-12 09:15] LABS: Basophils # 0.1 K/mm3 (0-0.2); Basophils % 0.5 % (0.1-2.0); Eosinophils # 0.1 K/mm3 (0.0-0.4); Eosinophils % 1.1 % (0.1-12.0); Hematocrit 38.4 % (42.0-52.0); Hemoglobin 13.2 g/dL (14.1-18.0); Lymphocytes # 0.4 K/mm3 (0.7-4.5); Lymphocytes % 4.6 % (10-50); Mean Corpuscular HGB Conc 34.4 g/dL (31.8-35.4); Mean Corpuscular Hemoglobin 32.3 pg (27.0-31.2); Mean Corpuscular Volume 93.9 fl (80-94); Mean Platelet Volume 10.8 fl (7.4-10.4); Monocytes # 0.5 K/mm3 (0.1-1.0); Monocytes % 5.8 % (1.7-9.3); Neutrophils # 8.1 K/mm3 (1.8-7.8); Neutrophils % 87.7 % (37.0-80.0); Platelet Count 339 K/mm3 (142-424); Red Blood Count 4.09 M/mm3 (4.60-6.20); White Blood Count 9.2 K/mm3 (4.8-10.8)
--- NOTE | 2024-05-12 09:29 | PC.NURSE ---
report called to guillermo corey rn
--- NOTE | 2024-05-12 09:46 | PC.NURSE ---
pt arrived by wc from ed
[2024-05-12 10:15] LABS: INR 1.01 (0.9-1.1); Prothrombin Time 11.1 seconds (9.2-12.1)
[2024-05-12 10:24] LABS: Troponin I < 0.01 ng/ml (0.00-0.034)
[2024-05-12 11:20] LABS: Reflex Lactic Add Lactic Reflex
[2024-05-12 12:15] LABS: Lactic Acid Follow Up (RFLX 1) 1.7 mmol/L (0.7-2.1)
[2024-05-12 12:31] LABS: Microscopic, Urine URINE MICROSCOPIC (MICROSCOPIC)
[2024-05-12 12:43] LABS: Appearance,Urine CLEAR (Clear); Bilirubin,Urine Negative (Negative); Blood, Urine Negative (Negative); Color,Urine YELLOW (Yellow); Glucose,Urine (UA) Negative (Negative); Ketones,Urine Negative (Negative); Leukocyte Esterase,Urine Negative (Negative); Nitrate,Urine Negative (Negative); Protein,Urine Negative (Negative); Specific Gravity, Urine 1.015 (1.005-1.030)
[2024-05-12 12:44] LABS: Troponin I < 0.01 ng/ml (0.00-0.034)
[2024-05-12 13:10] LABS: Squamous Epithelial Cell,Urine Occasional #/hpf (0-5)
--- NOTE | 2024-05-12 14:14 | EXP.HP ---
History of Present Illness *Admission Date: 05/12/24 *History of present illness: 68-year-old male with known adenocarcinoma of the right lung presents to the ER for concerns of shortness of breath. Patient reports he has had notable shortness of breath since Monday, 2 days ago. Patient reports he went to oncology this week (Dr. Mahmood, [facility]) as scheduled but due to his high heart rate and congestion they did not perform his normal immunotherapy treatment and he was told to come back in 1 week for reevaluation. Reportedly he had an EKG done at that appointment. He has continued being short of breath, and contacted Dr. Lanza this morning and was instructed to come to the ER to be evaluated for possible pneumonia. Patient denies fevers, chills, productive cough, vomiting, diarrhea, or other associated symptoms. He denies any headache, numbness, tingling, or weakness. He does not have a history of cardiac abnormality, he does not take a diuretic. Review of previous records demonstrates a history of COPD. In the ER he was found to have a large right pleural effusion and possible pneumonia. Dr. Olivares, Pulmonology also follows the patient. He was contacted and plans to perform thoracentesis according to the ER provider. CXR- 1. Hyperexpanded lung arceo consistent with COPD. Extensive honeycomb appearance in the left midlung and left base consistent with chronic lung changes. 2. Large right pleural effusion. 3. Consolidation in the right midlung and right base. Diffuse ground-glass opacities bilaterally. Findings may reflect pneumonia.. The patient has severe degenerative disease of the back, particularly LS spine. [facility] Disclaimer: The information contained in this section may have been updated after the patient was seen, as this information can be updated by other users. Medical History Primary lung cancer Pleural effusion on right Bilateral impacted cerumen Parotid nodule Pneumonia Dysphagia Dyspnea on exertion Lung cancer Tobacco abuse disorder COPD mixed type Mediastinal lymphadenopathy Hilar lymphadenopathy Multiple lung nodules on CT Smoking greater than 30 pack years Esophageal obstruction due to food impaction Surgical History History of colonoscopy History of eye surgery History of back surgery Family History Other Leukemia Lung cancer Social History (Updated 05/12/24 @ 10:04 by Noemy Yoo RN) Smoking Status: Former smoker how long ago did patient quit smokin weeks second hand exposure: Yes alcohol intake: never substance use type: denies use current occupational status: retired Travel in the last 8 weeks: None household members: spouse housing: house lives independently: No marital status: education level: high school service: No current occupational exposures/hazards: No caffeine: Yes firearms in home: No do you feel safe at home: Yes victim of physical abuse: No victim of emotional abuse: No victim of sexual abuse: No would you like helpful sources: No Have you lived/traveled outside [place] in past 30 days?: No Contact w/someone who lives/traveled outside US past 30 days?: No Exposure to someone with infectious disease in past 14 days?: No Do you have a fever (greater than 100.4 F or 38 C)?: No Have you tested positive for COVID-19: No Exposed to someone with COVID-19 in past 14 days?: No Do you have a sore throat?: No Do you have a cough?: Yes Do you have any weakness?: No Do you have any diarrhea?: No Are you experiencing any unusual bleeding?: No Do you have any muscle aches/pain?: No Do you have any abdominal pain?: No Are you experiencing loss of taste or smell?: No Other Medical History Have you received the Flu Vaccine for this season: Yes Have you received the Pneumonia Vaccine: Yes Review of Systems Eyes Eyes: Reports loss of vision (in OD due to glaucoma) ENT Ears, Nose, Mouth, and Throat: Reports system reviewed and no additional complaints, except as documented *Cardiovascular Cardiovascular: Reports system reviewed and no additional complaints, except as documented, Reports dyspnea, Reports dyspnea on exertion, Denies edema, Denies irregular heart rhythm, Denies leg edema and Denies radiating jaw, neck or arm pain *Respiratory Respiratory: Reports chest congestion, Reports dyspnea and Reports dyspnea on exertion *Gastrointestinal Gastrointestinal: Reports system reviewed and no additional complaints, except as documented, Reports as per HPI (he battles weight loss. Recently has picked up some weight.), Denies abdominal pain, Denies change in bowel habits, Denies coffee ground emesis and Denies fecal incontinence *Genitourinary Genitourinary: Denies difficulty urinating *Musculoskeletal Musculoskeletal: Reports arthralgias, Reports atrophy, Reports back pain, Reports deformity, Reports limited range of motion, Reports muscle weakness, Reports myalgias and Reports stiffness Comments: chronic low back pain Integumentary/Breasts Skin/Breast: Reports system reviewed and no additional complaints, except as documented and Denies rash *Neurologic Neurologic: Reports loss of vision (in OD due to glaucoma) Psychiatric Psychiatric: Reports system reviewed and no additional complaints, except as documented and Reports other (anxiety, with treatment) Endocrine Endocrine: Reports system reviewed and no additional complaints, except as documented and Reports change in body appearance (weight loss) Hematologic/Lymphatic Hematologic/Lymphatic: Reports system reviewed and no additional complaints, except as documented Allergic/Immunologic Allergic/Immunologic: Reports system reviewed and no additional complaints, except as documented Meds Home Medications and Allergies Home Medications ?Medication ?Instructions ?Recorded ?Confirmed ?Type diazepam 10 mg tablet 10 mg PO TIDP PRN Anxiety 09/25/23 05/08/24 History gabapentin 600 mg tablet 600 mg PO QID 09/25/23 05/08/24 History levocetirizine 5 mg tablet 5 mg PO DAILY 09/25/23 05/08/24 History olanzapine 2.5 mg tablet 2.5 mg PO DAILY 09/25/23 05/08/24 History oxycodone 5 mg tablet 5 mg PO Q6HP PRN Severe Pain 09/25/23 05/08/24 History (Scale Score 7-10) prochlorperazine maleate 10 mg 10 mg PO Q6HP PRN Nausea And 09/25/23 05/08/24 History tablet (Compazine) Vomiting sulindac 200 mg tablet 200 mg PO BID 09/25/23 05/08/24 History dexamethasone 4 mg tablet 4 mg PO BID 09/26/23 05/08/24 History ipratropium 0.5 mg-albuterol 3 mg 3 ml inhalation Q6HP PRN Shortness 09/28/23 05/08/24 Rx (2.5 mg base)/3 mL nebulization Of Breath #120 mL soln magnesium oxide 400 mg (241.3 mg 400 mg PO BID #60 tabs 09/28/23 05/08/24 Rx magnesium) tablet megestrol 400 mg/10 mL (40 mg/mL) 400 mg (10 mL) PO DAILY #250 mL 09/28/23 05/08/24 Rx oral suspension potassium chloride 20 mEq 20 meq PO DAILY #30 tabs 09/28/23 05/08/24 Rx tablet,extended release(part/cryst) (Klor-Con M) sulfamethoxazole 800 1 tab PO BID lung infection #20 10/02/23 05/08/24 Rx mg-trimethoprim 160 mg tablet tabs sulfamethoxazole 800 1 tab PO BID 14 days #28 tabs 10/02/23 05/08/24 Rx mg-trimethoprim 160 mg tablet (Bactrim DS) tiotropium 2.5 mcg-olodaterol 2.5 2 puff inhalation DAILY 90 days #4 10/12/23 05/08/24 Rx mcg/actuation mist for inhalation grams (Stiolto Respimat) New Prescriptions to Start Prescriptions: Allergies Allergy/AdvReac Type Severity Reaction Status Date / Time Iodinated Contrast Media Allergy Intermediate Hives Verified 05/08/24 09:58 Exam Data for Last 24 hours Vital signs and Labs for Last 24 Hours: Temp Pulse Resp BP Pulse Ox O2 Del Method O2 Flow Rate 98.5 F 116 H 26 H 134/86 91 L Nasal Cannula 1.5 05/12/24 09:45 05/12/24 09:45 05/12/24 09:45 05/12/24 09:45 05/12/24 09:45 05/12/24 12:39 05/12/24 12:39 Laboratory Results - last 24 hr 05/12/24 06:51: Urine Color Yellow, Urine Appearance Clear, Urine pH 7.0, Ur Specific [place] 1.015, Urine Protein Negative, Urine Glucose (UA) Negative, Urine Ketones Negative, Urine Blood Negative, Urine Nitrate Negative, Urine Bilirubin Negative, Urine Urobilinogen 1.0, Ur Leukocyte Esterase Negative, Urine RBC None, Urine WBC 3-5, Ur Squamous Epith Cells Occasional, Urine Bacteria None 05/12/24 07:03: Chlamy pneumoniae PCR Not detected, Adenovirus (PCR) Not detected, B. pertussis DNA (PCR) Not detected, Coronavirus OC43 (PCR) Not detected, Coronavirus HKU1 (PCR) Not detected, Coronavirus 229E (PCR) Not detected, SARS-CoV-2 (PCR) Not detected, Coronavirus NL63 (PCR) Not detected, Human Metapneumovir PCR Not detected, Influenza A (H1) PCR Not detected, Influ A (H1N1/09) PCR Not detected, Influenza A (H3) PCR Not detected, Influenza Type A (PCR) Not detected, Influenza Type B (PCR) Not detected, M. pneumoniae (PCR) Not detected, Parainfluenza 1 (PCR) Not detected, Parainfluenza 2 (PCR) Not detected, Parainfluenza 3 (PCR) Not detected, Parainfluenza 4 (PCR) Not detected, RSV (PCR) Not detected, Entero/Rhino (PCR) Not detected 05/12/24 07:07: WBC 9.2, RBC 4.09 L, Hgb 13.2 L, Hct 38.4 L, MCV 93.9, MCH 32.3 H, MCHC 34.4, RDW 13.0, Plt Count 339, MPV 10.8 H, Neut % (Auto) 87.7 H, Lymph % (Auto) 4.6 L, [place] % (Auto) 5.8, Eos % (Auto) 1.1, Baso % (Auto) 0.5, Neut # (Auto) 8.1 H, Lymph # (Auto) 0.4 L, [place] # (Auto) 0.5, Eos # (Auto) 0.1, Baso # (Auto) 0.1, Sodium 135 L, Potassium 5.0, Chloride 102, Carbon Dioxide 22, Anion Gap 16.0 H, BUN 11, Creatinine 0.60 L, Estimated Creat Clear 53, Estimated GFR 133, Est GFR ( Amer) 161, Glucose 106 H, Calcium 9.1, Total Bilirubin 1.1, AST 35, ALT 21, Alkaline Phosphatase 60, Troponin I < 0.01, NT-Pro-B Natriuret Pep 693 H, Total Protein 6.4, Albumin 3.3 L, Globulin 3.1, Albumin/Globulin Ratio 1.1 05/12/24 07:11: VBG pH 7.36, VBG pCO2 37.0, VBG pO2 44.1 H, VBG HCO3 20.4 L, VBG Total CO2 21.6 L, VBG O2 Saturation 73.1 H, VBG Base Excess -5.0 L, VBG Lactic Acid 3.0 H 05/12/24 09:41: PT 11.1, INR 1.01, Troponin I < 0.01 05/12/24 11:45: Lactate 1.7, Troponin I < 0.01 I & O for Last 24 hours: Intake & Output 05/10/24 05/11/24 05/12/24 05/13/24 11:59 11:59 11:59 11:59 Output Total 250 / 250 Balance -250 / -250 Weight 116 lb 0.998 oz *Routine HEENT Exam Head: Present normocephalic Eye: Present EOMI and other (opacification of right cornea) ENT: Present mucous membranes dry *Routine Respiratory Exam Respiratory: Present decreased breath sounds (on right especially at the base) and able to speak in complete sentences; Absent respiratory distress, rhonchi, stridor or wheezes *Routine Cardiovascular Exam Cardiovascular: Present RRR and tachycardia; Absent murmur, gallop or rubs *Routine Abdominal Exam Abdominal: Present soft and normoactive bowel sounds; Absent tenderness, distended, rebound, guarding or mass *Routine Rectal Exam Rectal:: deferred *Routine Genitalia Exam Genitalia:: normal male Assessment and Plan *Assessment and plan (1) Acute hypoxemic respiratory failure: Status: Acute Category: Medical Code(s): J96.01 - Acute respiratory failure with hypoxia (2) Pleural effusion on right: Status: Acute Category: Medical Code(s): J90 - Pleural effusion, not elsewhere classified (3) Pneumonia: Status: Acute Category: Medical Code(s): J18.9 - Pneumonia, unspecified organism (4) Primary lung cancer: Status: Acute Category: Medical Code(s): C34.90 - Malignant neoplasm of unspecified part of unspecified bronchus or lung (5) Glaucoma of right eye: Status: Acute Category: Medical Code(s): H40.9 - Unspecified glaucoma (6) Dyspnea on exertion: Status: Acute Category: Medical Code(s): R06.09 - Other forms of dyspnea (7) Severe protein-calorie malnutrition: Status: Acute Category: Medical Code(s): E43 - Unspecified severe protein-calorie malnutrition (8) Severe muscle deconditioning: Status: Acute Category: Medical Code(s): R29.898 - Other symptoms and signs involving the musculoskeletal system (9) Malignant neoplasm of right upper lobe of lung: Status: Acute Category: Medical Code(s): C34.11 - Malignant neoplasm of upper lobe, right bronchus or lung (10) Smoking greater than 30 pack years: Status: Chronic Category: Social Hx Code(s): F17.210 - Nicotine dependence, cigarettes, uncomplicated (11) Mediastinal lymphadenopathy: Status: Chronic Category: Medical Code(s): R59.0 - Localized enlarged lymph nodes Plan Dr. Olivares plans thoracentesis tomorrow. See orders.
[2024-05-12] MEDS: GABAPENTIN 600MG TABLET 600 MG PO ×2 (17:33→20:21)
[2024-05-12] MEDS: diazePAM 5MG TABLET 5 MG PO (20:21)
[2024-05-12] MEDS: OLANZapine 5 MG ODT TABLET SL (20:21)
[2024-05-12] MEDS: DEXAMETHASONE 4MG TABLET 4 MG PO (20:21)
[2024-05-13] VITALS (8 sets, daily range): BP systolic 98–128; BP diastolic 49–66; PULSE 96–115; RESP 16–21; TEMP 36.4–36.8; O2SAT 90–100; BMI 15.7; BMI 15.5
[2024-05-13] MEDS: TIOTROPIUM 18MCG/PUFF INHALER 2 CAP IH (06:25)
[2024-05-13] MEDS: IPRATROPIUM/ALBUTEROL 3 ML NEB IH ×3 (06:25→19:21)
--- NOTE | 2024-05-13 07:39 | PC.NURSE ---
Pt. alert and orientated x 4. Pt. on O2 2 liters per NC Pt. slept well overnight. No c/'s this shift. Pt. NPO for pulmonary consult today.
--- NOTE | 2024-05-13 07:58 | P.PN_ITS ---
Subjective *Date: 05/13/24 *Time: 07:58 Interval history: Exertional shortness of breath. Patient denies chest pain. He is n.p.o. for possible pulmonary procedure per Dr. Olivares. He ate satisfactory yesterday. He has been out of bed to the bathroom with help. Medical Exam Vital signs and Labs for Last 24 Hours: Vital Signs Temp Pulse Pulse Resp BP BP Pulse Ox 05/13/24 07:00 05/13/24 06:29 96 H 05/13/24 06:29 96 H 05/13/24 05:00 05/13/24 04:00 98.2 F 103 H 16 111/57 L 90 L 05/13/24 03:00 05/13/24 01:00 05/13/24 00:00 97.7 F 115 H 18 128/66 90 L 05/12/24 23:00 05/12/24 21:00 05/12/24 20:25 05/12/24 20:20 05/12/24 20:20 101 H 05/12/24 20:19 100 H 05/12/24 20:00 98.4 F 112 H 17 141/60 H 86 L 05/12/24 18:34 05/12/24 17:00 05/12/24 16:00 98.2 F 102 H 18 112/58 L 90 L 05/12/24 14:39 05/12/24 12:39 05/12/24 10:50 05/12/24 09:45 98.5 F 116 H 26 H 134/86 91 L 05/12/24 09:30 97.8 F 109 H 23 151/79 H 05/12/24 09:17 05/12/24 09:00 109 H 23 151/79 H 97 05/12/24 08:33 110 H 20 147/73 H 94 L 05/12/24 08:00 115 H 27 H 136/68 92 L O2 Del Method O2 Flow Rate 05/13/24 07:00 Nasal Cannula 3 05/13/24 06:29 05/13/24 06:29 05/13/24 05:00 Nasal Cannula 3 05/13/24 04:00 Nasal Cannula 3 05/13/24 03:00 Nasal Cannula 3 05/13/24 01:00 Nasal Cannula 3 05/13/24 00:00 Nasal Cannula 3 05/12/24 23:00 Nasal Cannula 1.5 05/12/24 21:00 Nasal Cannula 1.5 05/12/24 20:25 Nasal Cannula 1.5 05/12/24 20:20 Nasal Cannula 1.5 05/12/24 20:20 05/12/24 20:19 05/12/24 20:00 Nasal Cannula 1 05/12/24 18:34 Room Air 05/12/24 17:00 Room Air 05/12/24 16:00 Nasal Cannula 1.5 05/12/24 14:39 Nasal Cannula 1.5 05/12/24 12:39 Nasal Cannula 1.5 05/12/24 10:50 Nasal Cannula 1.5 05/12/24 09:45 Nasal Cannula 1.5 05/12/24 09:30 Nasal Cannula 1.5 05/12/24 09:17 Nasal Cannula 1.5 05/12/24 09:00 Nasal Cannula 1.5 05/12/24 08:33 Nasal Cannula 1.5 05/12/24 08:00 Nasal Cannula 1.5 Intake and Output 05/12/24 05/13/24 05/13/24 19:59 03:59 11:59 Intake Total 790 / 790 Output Total 650 / 650 400 / 1050 Balance 140 / 140 -400 / -260 Intake: Intake, Oral Amount 540 / 540 Intake, Total IV Amount 250 / 250 Vancomycin HCl 1,000 mg In 0.9 250 / 250 % Sodium Chloride 250 ml @ 125 mls/hr IV ONCE ONE Rx#:[id number] Output: Output, Urine Amount 650 / 650 400 / 1050 Other: Number of Voids 1 Number of Unmeasured Voids 1 Number of Bowel Movements 1 1 Weight 116 lb 3.2 oz Patient Weight 05/13/24 11:59 Weight 116 lb 3.2 oz Laboratory Results - last 24 hr 05/12/24 06:51: Urine Color Yellow, Urine Appearance Clear, Urine pH 7.0, Ur Specific [place] 1.015, Urine Protein Negative, Urine Glucose (UA) Negative, Urine Ketones Negative, Urine Blood Negative, Urine Nitrate Negative, Urine Bilirubin Negative, Urine Urobilinogen 1.0, Ur Leukocyte Esterase Negative, Urine RBC None, Urine WBC 3-5, Ur Squamous Epith Cells Occasional, Urine Bacter ia None 05/12/24 07:03: Chlamy pneumoniae PCR Not detected, Adenovirus (PCR) Not detected, B. pertussis DNA (PCR) Not detected, Coronavirus OC43 (PCR) Not detected, Coronavirus HKU1 (PCR) Not detected, Coronavirus 229E (PCR) Not detected, SARS-CoV-2 (PCR) Not detected, Coronavirus NL63 (PCR) Not detected, Human Metapneumovir PCR Not detected, Influenza A (H1) PCR Not detected, Influ A (H1N1/09) PCR Not detected, Influenza A (H3) PCR Not detected, Influenza Type A (PCR) Not detected, Influenza Type B (PCR) Not detected, M. pneumoniae (PCR) Not detected, Parainfluenza 1 (PCR) Not detected, Parainfluenza 2 (PCR) Not detected, Parainfluenza 3 (PCR) Not detected, Parainfluenza 4 (PCR) Not detected, RSV (PCR) Not detected, Entero/Rhino (PCR) Not detected 05/12/24 07:07: WBC 9.2, RBC 4.09 L, Hgb 13.2 L, Hct 38.4 L, MCV 93.9, MCH 32.3 H, MCHC 34.4, RDW 13.0, Plt Count 339, MPV 10.8 H, Neut % (Auto) 87.7 H, Lymph % (Auto) 4.6 L, [place] % (Auto) 5.8, Eos % (Auto) 1.1, Baso % (Auto) 0.5, Neut # (Auto) 8.1 H, Lymph # (Auto) 0.4 L, [place] # (Auto) 0.5, Eos # (Auto) 0.1, Baso # (Auto) 0.1, Sodium 135 L, Potassium 5.0, Chloride 102, Carbon Dioxide 22, Anion Gap 16.0 H, BUN 11, Creatinine 0.60 L, Estimated Creat Clear 53, Estimated GFR 133, Est GFR ( Amer) 161, Glucose 106 H, Calcium 9.1, Total Bilirubin 1.1, AST 35, ALT 21, Alkaline Phosphatase 60, Troponin I < 0.01, NT-Pro-B Natriuret Pep 693 H, Total Protein 6.4, Albumin 3.3 L, Globulin 3.1, Albumin/Globulin Ratio 1.1 05/12/24 09:41: PT 11.1, INR 1.01, Troponin I < 0.01 05/12/24 11:45: Lactate 1.7, Troponin I < 0.01 I & O for Labs for Last 24 Hours: Intake & Output 05/10/24 05/11/24 05/12/24 05/13/24 11:59 11:59 11:59 11:59 Intake Total 790 / 790 Output Total 1050 / 1050 Balance -260 / -260 Weight 116 lb 0.998 oz 116 lb 3.2 oz Microbiology Reports for the Last 24 Hours: Microbiology 05/12/24 07:07 Blood Blood Culture - Preliminary NO GROWTH AFTER 24 HOURS 05/12/24 07:08 Blood Blood Culture - Preliminary NO GROWTH AFTER 24 HOURS Constitutional: Present no acute distress Respiratory: Present decreased breath sounds (Minimal breath sounds on the right.) Cardiac: Present Regular Rate GI: Present soft and normal bowel sounds; Absent distention, tenderness or guarding Comments:: Thin Extremities: Present full ROM; Absent tenderness, edema or calf tenderness Neuro: Present Other (Slow speech), alert, awake and oriented x 3 Assessment and Plan *Assessment and plan (1) Acute hypoxemic respiratory failure: Status: Acute Category: Medical Code(s): J96.01 - Acute respiratory failure with hypoxia (2) Pleural effusion on right: Status: Acute Category: Medical Code(s): J90 - Pleural effusion, not elsewhere classified (3) Pneumonia: Status: Acute Category: Medical Code(s): J18.9 - Pneumonia, unspecified organism (4) Primary lung cancer: Status: Acute Category: Medical Code(s): C34.90 - Malignant neoplasm of unspecified part of unspecified bronchus or lung (5) Glaucoma of right eye: Status: Acute Category: Medical Code(s): H40.9 - Unspecified glaucoma (6) Dyspnea on exertion: Status: Acute Category: Medical Code(s): R06.09 - Other forms of dyspnea (7) Severe protein-calorie malnutrition: Status: Acute Category: Medical Code(s): E43 - Unspecified severe protein-calorie malnutrition (8) Severe muscle deconditioning: Status: Acute Category: Medical Code(s): R29.898 - Other symptoms and signs involving the musculoskeletal system (9) Malignant neoplasm of right upper lobe of lung: Status: Acute Category: Medical Code(s): C34.11 - Malignant neoplasm of upper lobe, right bronchus or lung (10) Smoking greater than 30 pack years: Status: Chronic Category: Social Hx Code(s): F17.210 - Nicotine dependence, cigarettes, uncomplicated (11) Mediastinal lymphadenopathy: Status: Chronic Category: Medical Code(s): R59.0 - Localized enlarged lymph nodes Plan Patient currently receiving dexamethasone 4 mg twice daily and DuoNebs 3 times daily. He received a dose of vancomycin and piperacillin on in the emergency room. Dr. Olivares to see today for probable thoracentesis
--- NOTE | 2024-05-13 08:33 | HMH.PHAINT1 ---
Pharmacy Intervention Comments: HOME MEDICATION LIST VERIFIED USING LIST FROM OUTPATIENT PHARMACY AND PT INTERVIEW
[2024-05-13] MEDS: GABAPENTIN 600MG TABLET 600 MG PO ×4 (09:34→20:31)
[2024-05-13] MEDS: POTASSIUM CHLORIDE 20MEQ TAB 20 MEQ PO (09:34)
[2024-05-13] MEDS: DEXAMETHASONE 4MG TABLET 4 MG PO ×2 (09:35→20:31)
[2024-05-13] MEDS: MEGESTROL ACETATE 400 MG/10 ML PO (09:39)
[2024-05-13] MEDS: diazePAM 5MG TABLET 5 MG PO ×3 (09:43→20:31)
--- NOTE | 2024-05-13 10:16 | P.CONS_ITS ---
History of Present Illness History of present illness: Mr. Magallon is a 76-year-old male, COPD lung cancer presented to the ER with worsening respiratory distress found to have a large right pleural effusion and increasing oxygen requirements and pulmonary was called for further evaluation and management. Afebrile. Hemodynamically stable. Mild neutrophilic predominant leukocytosis upon admission improving. [facility] Disclaimer: The information contained in this section may have been updated after the patient was seen, as this information can be updated by other users. Medical History Primary lung cancer Pleural effusion on right Bilateral impacted cerumen Parotid nodule Pneumonia Dysphagia Dyspnea on exertion Lung cancer Tobacco abuse disorder COPD mixed type Mediastinal lymphadenopathy Hilar lymphadenopathy Multiple lung nodules on CT Smoking greater than 30 pack years Esophageal obstruction due to food impaction Surgical History History of colonoscopy History of eye surgery History of back surgery Family History Other Leukemia Lung cancer Social History (Updated 05/12/24 @ 10:04 by Noemy Yoo RN) Smoking Status: Former smoker how long ago did patient quit smokin weeks second hand exposure: Yes alcohol intake: never substance use type: denies use current occupational status: retired Travel in the last 8 weeks: None household members: spouse housing: house lives independently: No marital status: education level: high school service: No current occupational exposures/hazards: No caffeine: Yes firearms in home: No do you feel safe at home: Yes victim of physical abuse: No victim of emotional abuse: No victim of sexual abuse: No would you like helpful sources: No Have you lived/traveled outside [place] in past 30 days?: No Contact w/someone who lives/traveled outside US past 30 days?: No Exposure to someone with infectious disease in past 14 days?: No Do you have a fever (greater than 100.4 F or 38 C)?: No Have you tested positive for COVID-19: No Exposed to someone with COVID-19 in past 14 days?: No Do you have a sore throat?: No Do you have a cough?: Yes Do you have any weakness?: No Do you have any diarrhea?: No Are you experiencing any unusual bleeding?: No Do you have any muscle aches/pain?: No Do you have any abdominal pain?: No Are you experiencing loss of taste or smell?: No Review of Systems Constitutional Constitutional: Reports fatigue, Reports frequent falls, Reports headache(s), Reports lethargy, Reports weakness and Reports weight loss Eyes Eyes: Denies itchy eyes and Reports loss of vision (in OD due to glaucoma) ENT Ears, Nose, Mouth, and Throat: Reports headache(s), Denies lip swelling and Denies throat swelling *Cardiovascular Cardiovascular: Reports dyspnea and Reports dyspnea on exertion *Respiratory Respiratory: Denies change in phlegm color, Reports chest congestion, Reports cough, Reports dyspnea, Reports dyspnea on exertion, Denies excessive phlegm production, Denies hemoptysis, Denies pain on inspiration, Denies pain with cough and Denies wheezing *Gastrointestinal Gastrointestinal: Denies abdominal pain, Denies belching and Denies cramping *Musculoskeletal Musculoskeletal: Denies abnormal gait (Does use a walker) *Neurologic Neurologic: Denies abnormal gait (Does use a walker), Reports frequent falls, Reports headache(s), Reports loss of vision (in OD due to glaucoma) and Reports weakness Psychiatric Psychiatric: Denies homicidal ideation and Denies suicidal ideation Endocrine Endocrine: Reports fatigue and Denies heat intolerance Hematologic/Lymphatic Hematologic/Lymphatic: Denies easy bleeding and Denies lymphadenopathy Allergic/Immunologic Allergic/Immunologic: Denies itchy eyes, Denies lip swelling, Denies throat swelling and Denies wheezing Pulmonology Exam Inpatient Vital signs and Labs for Last 24 Hours: Temp Pulse Resp BP Pulse Ox O2 Del Method O2 Flow Rate 97.9 F 115 H 21 115/60 90 L Nasal Cannula 3 05/13/24 08:00 05/13/24 08:00 05/13/24 08:00 05/13/24 08:00 05/13/24 08:00 05/13/24 09:00 05/13/24 09:00 Laboratory Results - last 24 hr 05/12/24 06:51: Urine Color Yellow, Urine Appearance Clear, Urine pH 7.0, Ur Specific [place] 1.015, Urine Protein Negative, Urine Glucose (UA) Negative, Urine Ketones Negative, Urine Blood Negative, Urine Nitrate Negative, Urine Bilirubin Negative, Urine Urobilinogen 1.0, Ur Leukocyte Esterase Negative, Urine RBC None, Urine WBC 3-5, Ur Squamous Epith Cells Occasional, Urine Bacteria None 05/12/24 09:41: PT 11.1, INR 1.01, Troponin I < 0.01 05/12/24 11:45: Lactate 1.7, Troponin I < 0.01 I & O for Labs for Last 24 Hours: Intake & Output 05/10/24 05/11/24 05/12/24 05/13/24 23:59 23:59 23:59 23:59 Intake Total 790 / 790 Output Total 650 / 1050 1075 / 1075 Balance 140 / -260 -1075 / -1075 Weight 116 lb 0.998 oz 116 lb 3.2 oz Microbiology Reports for the Last 24 Hours: Microbiology 05/12/24 07:07 Blood Blood Culture - Preliminary NO GROWTH AFTER 24 HOURS 05/12/24 07:08 Blood Blood Culture - Preliminary NO GROWTH AFTER 24 HOURS Constitutional: Present moderate distress Head: Present normocephalic and atraumatic ENT: Present normal exam, normal oropharynx and mucous membranes moist Neck: Present normal inspection and full ROM Respiratory: Present respiratory distress, diminished air movement and able to speak in complete sentences; Absent wheezes or crackles Cardiac: Present S1/S2, Tachycardia and radial pulses present GI: Present soft and distention; Absent tenderness or guarding Skin: Present intact; Absent cyanosis or jaundice Neuro: Present alert, awake and oriented x 3 Extremities: Present normal inspection; Absent clubbing or cyanosis Psychiatric: Present normal affect and cooperative Meds Home Medications and Allergies Home Medications ?Medication ?Instructions ?Recorded ?Confirmed ?Type diazepam 10 mg tablet 10 mg PO TIDP PRN Anxiety 09/25/23 05/12/24 History gabapentin 600 mg tablet 600 mg PO QID 09/25/23 05/12/24 History levocetirizine 5 mg tablet 5 mg PO DAILY 09/25/23 05/12/24 History oxycodone 5 mg tablet 5 mg PO Q6HP PRN Severe Pain 09/25/23 05/12/24 History (Scale Score 7-10) sulindac 200 mg tablet 200 mg PO BID 09/25/23 05/12/24 History megestrol 400 mg/10 mL (40 mg/mL) 400 mg (10 mL) PO DAILY #250 mL 09/28/23 05/12/24 Rx oral suspension tiotropium 2.5 mcg-olodaterol 2.5 2 puff inhalation DAILY 90 days #4 10/12/23 05/12/24 Rx mcg/actuation mist for inhalation grams (Stiolto Respimat) New Prescriptions to Start Prescriptions: Allergies Allergy/AdvReac Type Severity Reaction Status Date / Time Iodinated Contrast Media Allergy Intermediate Hives Verified 05/08/24 09:58 Results Laboratory Findings 05/12/24 07:07 05/12/24 07:07 PT/INR, D-dimer PT 11.1 seconds (9.2-12.1) 05/12/24 09:41 INR 1.01 (0.9-1.1) 05/12/24 09:41 Abnormal lab findings: Abnormal Labs 05/12/24 05/12/24 07:07 07:11 RBC 4.09 L Hgb 13.2 L Hct 38.4 L MCH 32.3 H MPV 10.8 H Neut % (Auto) 87.7 H Lymph % (Auto) 4.6 L Neut # (Auto) 8.1 H Lymph # (Auto) 0.4 L VBG pO2 44.1 H VBG HCO3 20.4 L VBG Total CO2 21.6 L VBG O2 Saturation 73.1 H VBG Base Excess -5.0 L VBG Lactic Acid 3.0 H Sodium 135 L Anion Gap 16.0 H Creatinine 0.60 L Glucose 106 H NT-Pro-B Natriuret Pep 693 H Albumin 3.3 L Assessment and Plan *Assessment and plan (1) Acute hypoxemic respiratory failure: Status: Acute Category: Medical Code(s): J96.01 - Acute respiratory failure with hypoxia (2) Pleural effusion on right: Status: Acute Category: Medical Code(s): J90 - Pleural effusion, not elsewhere classified (3) Pneumonia: Status: Acute Category: Medical Code(s): J18.9 - Pneumonia, unspecified organism Plan Mr. Magallon is a 76-year-old male, COPD lung cancer presented to the ER with worsening respiratory distress found to have a large right pleural effusion and increasing oxygen requirements and pulmonary was called for further evaluation and management. Afebrile. Hemodynamically stable. Mild neutrophilic predominant leukocytosis upon admission improving. CTA upon admission no evidence of pulmonary embolism. Large right pleural effusion. Concerning worsening size of the nodular opacity in the right upper lobe from February 2024. CT also noted bilateral groundglass opacities concerning for pneumonia On examination patient admits gradually worsening respiratory distress. No known sick contacts but denies any worsening cough or any productive phlegm. Plan: Continue oxygen supplementation to maintain O2 saturation goal of 90% and above S/p thoracentesis removal of 2720 cc of blood-tinged pleural fluid. Follow with repeat chest x-ray Follow-up pleural fluid studies including pleural fluid cytology initiate Bactrim DS twice daily pending sputum and blood cultures. Hold potassium chloride oral supplementation until completion of Bactrim treatment. Follow with sputum culture results
--- NOTE | 2024-05-13 11:02 | US_ITS ---
FINAL REPORT CLINICAL HISTORY: SOA - RT PLEURAL EFFUSION - DR. OLIVARES -- 2720 ML REMOVED FINDINGS: ULTRASOUND GUIDANCE THORACENTESIS: Ultrasound images were performed by the sonography tech for localization prior to a right thoracentesis performed by Dr. Olivares, retail assistant. 5 ultrasound images were obtained of a large right pleural effusion. The thoracentesis was performed by Dr. Olivares, and 2720 cc of pleural fluid were removed. IMPRESSION: Ultrasound localization performed prior to thoracentesis from the right hemithorax. Reviewed, Interpreted and Dictated by Regulo Schaeffer MD Transcribed by Jenna Brar Authenticated and . [facility]
--- NOTE | 2024-05-13 13:02 | XR_ITS ---
FINAL REPORT CLINICAL HISTORY: Postthoracentesis COMPARISON: 05/12/2024 FINDINGS: The heart size is normal. There is a right pneumothorax with 2.5 cm of pleural separation. This pneumothorax is new since the prior exam of 05/12/2024. The mediastinum is normal. Left perihilar infiltrate remains present. The right-sided pleural effusion noted on the prior exam is no longer visualized. There is no pneumothorax. There is no osseous abnormality. IMPRESSION: Right pneumothorax is present, with 2.5 cm of pleural separation. These results were called to Dr. Olivares's office 05/13/2024 at 1:45 PM. Left perihilar infiltrates persist. Reviewed, Interpreted and Dictated by Regulo Schaeffer MD Transcribed by Jenna Brar Authenticated and [facility]
[2024-05-13 13:16] LABS: Source, Body Fld. Thoracentesis Fluid
[2024-05-13 13:17] LABS: RBC,Body Fluid 11 cells/uL (< 10 X 10^3); TNC,Body Fluid 711 cells/uL (< 1000); Volume,Body Fld. 2720 mL
[2024-05-13 13:18] LABS: Appearance,Body Fld. Cloudy
[2024-05-13] MEDS: SULFA/TRIMETHOPRIM 1 TABLET 1 EACH PO ×2 (13:40→20:31)
[2024-05-13 14:21] LABS: Polynuclear WBC,Body Fluid 69 %
[2024-05-13 14:22] LABS: Mononuclear WBCs,Body Fluid 31 %
--- NOTE | 2024-05-13 14:56 | XR_ITS ---
FINAL REPORT CLINICAL HISTORY: Pneumothorax COMPARISON: Less than 2 hours prior FINDINGS: There is a new small bore chest tube. The heart size is normal. The mediastinum is normal. There has been significant decrease in size of the right pneumothorax. There is persistent pleural separation measuring 1.3 cm. Airspace infiltrate is noted in the left perihilar region. There is no osseous abnormality. IMPRESSION: Placement of small bore chest tube with decrease of pneumothorax. Persistent left perihilar airspace infiltrate. Reviewed, Interpreted and Dictated by Regulo Schaeffer MD Transcribed by Charlene Tello Authenticated and [facility]
--- NOTE | 2024-05-13 14:57 | P.PCN_ITS ---
[facility] Procedure Note Date: 05/13/24 Time: 12:00 Procedure Note:: Indication for procedure: Right Pleural Effusion, Hypoxic Respiratory failure A time out was performed, and the chest x-ray was reviewed, the appropriate side was confirmed and marked. My hands were washed immediately prior to the procedure. I wore a surgical cap, mask with protective eyewear, sterile gown, and sterile gloves throughout the procedure. The patient was prepped and draped in a sterile manner using chlorhexidine scrub after the appropriate level was percussed and confirmed by ultrasound. 1% lidocaine was used to anesthetize the skin, ?subcutaneous tissue, superior aspect of the rib periosteum and parietal pleura.? A finder needle was then introduced at the RIGHT seventh intercoastal space posteriorly?to locate the pleural fluid; blood-tinged fluid was aspirated. A 10- blade scalpel was used to wilma the skin at the insertion site. The [id number]-[id number] needle was then introduced through the skin incision into the pleural space using negative aspiration pressure and the red colorimetric indicator to confirm appropriate positioning of the needle. The thoracentesis catheter was then threaded without difficulty.? Postprocedure chest x-ray c oncern for pneumothorax/trapped lung. Will proceed with chest tube placement 2720 ml of straw-colored?fluid was removed without difficulty. The catheter was then removed. No immediate complications were noted during the procedure. The fluid will be sent for routine pleural studies, cultures along with cytopathology.? Patient tolerated the procedure well? Estimated blood loss is 2cc.
--- NOTE | 2024-05-13 14:59 | P.PCN_ITS ---
[facility] Procedure Note Date: 05/13/24 Time: 14:59 Procedure Note:: Procedure: Right chest tube placement Indication for procedure: Pneumothorax A time out was performed, and the chest x-ray was reviewed, the appropriate side was confirmed and marked. My hands were washed immediately prior to the procedure. I wore a surgical cap, mask with protective eyewear, sterile gown, and sterile gloves throughout the procedure. The patient was prepped and draped in a sterile manner using chlorhexidine scrub after the appropriate level was percussed and confirmed by ultrasound. 1% lidocaine was used to anesthetize the skin, ?subcutaneous tissue, superior aspect of the rib periosteum and parietal pleura.? A finder needle was then introduced at the fifth intercoastal space midaxillary line?to locate the pneumo thorax pocket and air was aspirated.?The syringe? was removed and pneumothorax catheter over needle was introduced, air was suctioned and the catheter was advanced over the needle into the pleural space??The chest tube in a sterile fashion was connected to atrium and suction at ?negative 20 cm water and bubbling was noted. Patient tolerated the procedure well. Post procedure CXR was pending at this point of time.
[2024-05-13 15:42] LABS: Lactate Dehydrogenase 453 U/L (313-618)
--- NOTE | 2024-05-13 16:50 | PC.NURSE ---
Pt is A&O x4. He is currently in bed. No complaints stated. Chest tube is in place @ 40 cm of suction. Pt is on NRB per MD Olivares. O2 sats are 99%. Pt's appetite has been good. He states he feels better and is breathing better. Pt voids via urinal. Last BM was early this morning. call light within reach.
--- NOTE | 2024-05-13 18:52 | EXP.ACUTE.PN ---
Subjective *Date: 05/13/24 *Time: 18:52 Interval history: Chart reviewed. He is comfortable this evening and breathing easy. 2720 mL removed by thoracentesis. Chest tube placed Good air movement on auscultation. No leg edema. Heart rate regular. Medical Exam Vital signs and Labs for Last 24 Hours: Vital Signs Temp Pulse Pulse Resp BP Pulse Ox O2 Del Method 05/13/24 17:00 Non-Rebreather 05/13/24 16:00 97.6 F 104 H 20 101/60 L 100 05/13/24 15:00 Nasal Cannula 05/13/24 13:43 107 H 05/13/24 13:43 107 H 05/13/24 13:00 Nasal Cannula 05/13/24 11:00 Nasal Cannula 05/13/24 09:00 Nasal Cannula 05/13/24 08:08 Nasal Cannula 05/13/24 08:00 97.9 F 115 H 21 115/60 90 L Nasal Cannula 05/13/24 07:00 Nasal Cannula 05/13/24 06:29 96 H 05/13/24 06:29 96 H 05/13/24 05:00 Nasal Cannula 05/13/24 04:00 98.2 F 103 H 16 111/57 L 90 L Nasal Cannula 05/13/24 03:00 Nasal Cannula 05/13/24 01:00 Nasal Cannula 05/13/24 00:00 97.7 F 115 H 18 128/66 90 L Nasal Cannula 05/12/24 23:00 Nasal Cannula 05/12/24 21:00 Nasal Cannula 05/12/24 20:25 Nasal Cannula 05/12/24 20:20 Nasal Cannula 05/12/24 20:20 101 H 05/12/24 20:19 100 H 05/12/24 20:00 98.4 F 112 H 17 141/60 H 86 L Nasal Cannula O2 Flow Rate 05/13/24 17:00 05/13/24 16:00 14 05/13/24 15:00 2 05/13/24 13:43 05/13/24 13:43 05/13/24 13:00 3 05/13/24 11:00 3 05/13/24 09:00 3 05/13/24 08:08 3 05/13/24 08:00 3 05/13/24 07:00 3 05/13/24 06:29 05/13/24 06:29 05/13/24 05:00 3 05/13/24 04:00 3 05/13/24 03:00 3 05/13/24 01:00 3 05/13/24 00:00 3 05/12/24 23:00 1.5 05/12/24 21:00 1.5 05/12/24 20:25 1.5 05/12/24 20:20 1.5 05/12/24 20:20 05/12/24 20:19 05/12/24 20:00 1 Intake and Output 05/13/24 05/13/24 05/13/24 03:59 11:59 19:59 Intake Total 420 / 420 Output Total 400 / 1725 675 / 1725 200 / 200 Balance -400 / -935 -675 / -935 220 / 220 Intake: Intake, Oral Amount 420 / 420 Output: Output, Urine Amount 400 / 1725 675 / 1725 200 / 200 Other: Number of Unmeasured Voids 1 Number of Bowel Movements 1 1 Weight 116 lb 3.2 oz 114 lb 10.246 oz Patient Weight 05/14/24 11:59 Weight 114 lb 10.246 oz Laboratory Results - last 24 hr 05/13/24 11:31: Fluid Source Thoracentesis fluid, Fluid Volume 2720, Fluid Appearance Cloudy, Fluid RBC (Auto) 11, Fld Tot Nucleated Cell 711, Fld Polynuclear WBCs % 69, Fld Mononuclear WBCs % 31 05/13/24 15:07: Lactate Dehydrogenase 453 I & O for Labs for Last 24 Hours: Intake & Output 05/11/24 05/12/24 05/13/24 05/14/24 11:59 11:59 11:59 11:59 Intake Total 790 / 790 420 / 420 Output Total 1725 / 1725 200 / 200 Balance -935 / -935 220 / 220 Weight 116 lb 0.998 oz 116 lb 3.2 oz 114 lb 10.246 oz Microbiology Reports for the Last 24 Hours: Microbiology 05/12/24 07:07 Blood Blood Culture - Preliminary NO GROWTH AFTER 24 HOURS 05/12/24 07:08 Blood Blood Culture - Preliminary NO GROWTH AFTER 24 HOURS Head: Present normocephalic Neck: Present normal inspection Respiratory: Present normal respiratory effort (Good air movement bilaterally. Chest tube in place on the right.) and able to speak in complete sentences; Absent respiratory distress Cardiac: Present Reg Rate and Rhythm GI: Present soft; Absent tenderness Rectal (male): Present deferred (male): Present deferred Extremities: Absent edema Skin: Present intact Assessment and Plan *Assessment and plan (1) Pleural effusion on right: Status: Acute Category: Medical Code(s): J90 - Pleural effusion, not elsewhere classified (2) Primary lung cancer: Status: Acute Category: Medical Code(s): C34.90 - Malignant neoplasm of unspecified part of unspecified bronchus or lung (3) Severe protein-calorie malnutrition: Status: Acute Category: Medical Code(s): E43 - Unspecified severe protein-calorie malnutrition (4) Severe muscle deconditioning: Status: Acute Category: Medical Code(s): R29.898 - Other symptoms and signs involving the musculoskeletal system (5) COPD mixed type: Status: Chronic Category: Medical Code(s): J44.9 - Chronic obstructive pulmonary disease, unspecified (6) Smoking greater than 30 pack years: Status: Chronic Category: Social Hx Code(s): F17.210 - Nicotine dependence, cigarettes, uncomplicated (7) Chest tube in place: Status: Acute Category: Medical Code(s): Z96.89 - Presence of other specified functional implants Plan See orders.
[2024-05-13] MEDS: OLANZapine 5 MG ODT TABLET SL (20:31)
[2024-05-14] VITALS (9 sets, daily range): BP systolic 99–121; BP diastolic 47–56; PULSE 77–106; RESP 16–18; TEMP 36.4–36.6; O2SAT 94–100; BMI 15.0
--- NOTE | 2024-05-14 03:30 | PC.NURSE ---
Addendum entered by Sherin Mast RN 05/14/24 07:12: Correction to note, the chest tube is on the right side chest and not the left Original Note: Pr. is alert and orientated x 4. Pt. is on NRB mask at 15 litrs of oxygen. Pt, has a chest tube to left chest , set to suction at -40 cmH2O . Pt. has sero/sang drainage from chest tube . Pt. tolerating chest tube well. Pt. sleeping well this shift. No c/o's . VSS, Personal items and call michelle in reach.
[2024-05-14] MEDS: OXYCODONE 5MG IMMEDIATE RELEASE TABLET 5 MG PO (06:23)
[2024-05-14] MEDS: TIOTROPIUM 18MCG/PUFF INHALER 2 CAP IH (06:46)
[2024-05-14] MEDS: IPRATROPIUM/ALBUTEROL 3 ML NEB IH ×3 (06:46→19:45)
--- NOTE | 2024-05-14 08:02 | EXP.ACUTE.PN ---
Subjective *Date: 05/14/24 *Time: 08:02 Interval history: Patient states he feels better today. He did sleep well during the night. He feels his breathing is better with no shortness of breath. He has some chest wall soreness on the right chest tube insertion site. Otherwise no chest pain. He has been able to eat. Patient had a thoracentesis yesterday per Dr. Olivares for right pleural effusion with hypoxic respiratory failure. 2720 mL of straw-colored fluid were removed without difficulty. Postprocedure chest x-ray revealed a pneumothorax trapped lung and a chest tube was placed and placed to suction. Post chest tube x-ray revealed the following: FINDINGS: There is a new small bore chest tube. The heart size is normal. The mediastinum is normal. There has been significant decrease in size of the right pneumothorax. There is persistent pleural separation measuring 1.3 cm. Airspace infiltrate is noted in the left perihilar region. There is no osseous abnormality. IMPRESSION: Placement of small bore chest tube with decrease of pneumothorax. Persistent left perihilar airspace infiltrate. Medical Exam Vital signs and Labs for Last 24 Hours: Vital Signs Temp Pulse Pulse Resp BP Pulse Ox O2 Del Method 05/14/24 07:45 97.8 F 106 H 18 111/55 L 94 L Nasal Cannula 05/14/24 06:47 90 05/14/24 06:47 92 H 05/14/24 06:47 97 Non-Rebreather 05/14/24 05:00 Non-Rebreather 05/14/24 04:00 97.6 F 96 H 18 102/47 L 100 Non-Rebreather 05/14/24 03:00 Non-Rebreather 05/14/24 01:00 Non-Rebreather 05/14/24 00:00 97.5 F L 101 H 18 121/49 L 94 L Non-Rebreather 05/13/24 23:00 Non-Rebreather 05/13/24 21:00 Non-Rebreather 05/13/24 20:00 Non-Rebreather 05/13/24 20:00 97.6 F 102 H 18 98/49 L 98 Non-Rebreather 05/13/24 19:22 96 H 05/13/24 19:22 105 H 05/13/24 19:22 99 Non-Rebreather 05/13/24 19:00 Non-Rebreather 05/13/24 17:00 Non-Rebreather 05/13/24 16:00 97.6 F 104 H 20 101/60 L 100 05/13/24 15:00 Nasal Cannula 05/13/24 13:43 107 H 05/13/24 13:43 107 H 05/13/24 13:00 Nasal Cannula 05/13/24 11:00 Nasal Cannula 05/13/24 09:00 Nasal Cannula 05/13/24 08:08 Nasal Cannula O2 Flow Rate FiO2 05/14/24 07:45 3 05/14/24 06:47 05/14/24 06:47 05/14/24 06:47 05/14/24 05:00 15 05/14/24 04:00 15 05/14/24 03:00 15 05/14/24 01:00 15 05/14/24 00:00 15 05/13/24 23:00 15 05/13/24 21:00 15 05/13/24 20:00 15 05/13/24 20:00 15 05/13/24 19:22 05/13/24 19:22 05/13/24 19:22 15 100 05/13/24 19:00 15 05/13/24 17:00 05/13/24 16:00 14 05/13/24 15:00 2 05/13/24 13:43 05/13/24 13:43 05/13/24 13:00 3 05/13/24 11:00 3 05/13/24 09:00 3 05/13/24 08:08 3 Intake and Output 05/13/24 05/14/24 05/14/24 19:59 03:59 11:59 Intake Total 840 / 840 240 / 1080 Output Total 232 / 232 79 / 311 0 / 311 Balance 608 / 608 161 / 769 0 / 769 Intake: Intake, Oral Amount 840 / 840 240 / 1080 Output: Output, Urine Amount 200 / 200 0 / 200 0 / 200 Output, Chest Tube Drainage 79 / 111 Amount Left Lateral Chest 79 / 111 Other: Number of Unmeasured Voids 1 1 Weight 114 lb 10.246 oz 111 lb 4.8 oz Patient Weight 05/14/24 11:59 Weight 111 lb 4.8 oz Laboratory Results - last 24 hr 05/13/24 11:31: Fluid Source Thoracentesis fluid, Fluid Volume 2720, Fluid Appearance Cloudy, Fluid RBC (Auto) 11, Fld Tot Nucleated Cell 711, Fld Polynuclear WBCs % 69, Fld Mononuclear WBCs % 31 05/13/24 15:07: Lactate Dehydrogenase 453 I & O for Labs for Last 24 Hours: Intake & Output 05/11/24 05/12/24 05/13/24 05/14/24 11:59 11:59 11:59 11:59 Intake Total 790 / 790 1080 / 1080 Output Total 1775 / 1775 311 / 311 Balance -985 / -985 769 / 769 Weight 116 lb 0.998 oz 116 lb 3.2 oz 111 lb 4.8 oz Microbiology Reports for the Last 24 Hours: Microbiology 05/12/24 07:07 Blood Blood Culture - Preliminary NO GROWTH AFTER 48 HOURS 05/12/24 07:08 Blood Blood Culture - Preliminary NO GROWTH AFTER 48 HOURS 05/13/24 11:31 Thoracic Fluid Gram Stain - Final Constitutional: Present no acute distress and thin Comment:: Sitting up in the bed eating his breakfast and seems to be enjoying. Respiratory: Present crackles (Right mid chest) Cardiac: Present Reg Rate and Rhythm GI: Present soft and normal bowel sounds; Absent distention Extremities: Absent tenderness, edema or calf tenderness Neuro: Present alert, awake and oriented x 3 Assessment and Plan *Assessment and plan (1) Acute hypoxemic respiratory failure: Status: Acute Category: Medical Code(s): J96.01 - Acute respiratory failure with hypoxia (2) Pleural effusion on right: Status: Acute Category: Medical Code(s): J90 - Pleural effusion, not elsewhere classified (3) Pneumonia: Status: Acute Category: Medical Code(s): J18.9 - Pneumonia, unspecified organism (4) Primary lung cancer: Status: Acute Category: Medical Code(s): C34.90 - Malignant neoplasm of unspecified part of unspecified bronchus or lung (5) Severe protein-calorie malnutrition: Status: Acute Category: Medical Code(s): E43 - Unspecified severe protein-calorie malnutrition (6) Severe muscle deconditioning: Status: Acute Category: Medical Code(s): R29.898 - Other symptoms and signs involving the musculoskeletal system (7) COPD mixed type: Status: Chronic Category: Medical Code(s): J44.9 - Chronic obstructive pulmonary disease, unspecified (8) Smoking greater than 30 pack years: Status: Chronic Category: Social Hx Code(s): F17.210 - Nicotine dependence, cigarettes, uncomplicated (9) Chest tube in place: Status: Acute Category: Medical Code(s): Z96.89 - Presence of other specified functional implants Plan Pulmonary to follow. Continue with current care.
[2024-05-14] MEDS: DEXAMETHASONE 4MG TABLET 4 MG PO ×2 (08:22→20:33)
[2024-05-14] MEDS: GABAPENTIN 600MG TABLET 600 MG PO ×4 (08:22→20:34)
[2024-05-14] MEDS: POTASSIUM CHLORIDE 20MEQ TAB 20 MEQ PO (08:22)
[2024-05-14] MEDS: SULFA/TRIMETHOPRIM 1 TABLET 1 EACH PO ×2 (08:22→20:34)
[2024-05-14] MEDS: diazePAM 5MG TABLET 5 MG PO ×3 (08:22→20:34)
[2024-05-14] MEDS: MEGESTROL ACETATE 400 MG/10 ML PO (08:23)
--- NOTE | 2024-05-14 09:29 | XR_ITS ---
FINAL REPORT CLINICAL HISTORY: Pneumothorax COMPARISON: 05/13/2024 FINDINGS: A right chest tube is once again identified. There is a persistent small left perihilar infiltrate noted, stable. A small pneumothorax remains present, although improved since the prior exam of 05/13/2024. The heart size is normal. The mediastinum is normal. There is no osseous abnormality. IMPRESSION: Small chest tube and small pneumothorax remain present in the left hemithorax. Persistent left perihilar infiltrate, stable. Reviewed, Interpreted and Dictated by Regulo Schaeffer MD Transcribed by Jenna Brar Authenticated and [facility]
--- NOTE | 2024-05-14 09:35 | EXP.PULM.PN ---
Subjective *Date: 05/14/24 *Time: 10:57 Interval history: No acute respiratory vents overnight. Patient denies any new respiratory complaints Pulmonology Exam Inpatient Vital signs and Labs for Last 24 Hours: Temp Pulse Resp BP Pulse Ox O2 Del Method O2 Flow Rate 97.8 F 106 H 18 111/55 L 94 L Non-Rebreather 15 05/14/24 07:45 05/14/24 07:45 05/14/24 07:45 05/14/24 07:45 05/14/24 07:45 05/14/24 08:36 05/14/24 08:36 FiO2 100 05/13/24 19:22 Laboratory Results - last 24 hr 05/13/24 11:31: Fluid Source Thoracentesis fluid, Fluid Volume 2720, Fluid Appearance Cloudy, Fluid RBC (Auto) 11, Fld Tot Nucleated Cell 711, Fld Polynuclear WBCs % 69, Fld Mononuclear WBCs % 31 05/13/24 15:07: Lactate Dehydrogenase 453 Temp Pulse Resp BP Pulse Ox O2 Del Method O2 Flow Rate 97.9 F 115 H 21 115/60 90 L Nasal Cannula 3 05/13/24 08:00 05/13/24 08:00 05/13/24 08:00 05/13/24 08:00 05/13/24 08:00 05/13/24 09:00 05/13/24 09:00 Laboratory Results - last 24 hr 05/12/24 06:51: Urine Color Yellow, Urine Appearance Clear, Urine pH 7.0, Ur Specific [place] 1.015, Urine Protein Negative, Urine Glucose (UA) Negative, Urine Ketones Negative, Urine Blood Negative, Urine Nitrate Negative, Urine Bilirubin Negative, Urine Urobilinogen 1.0, Ur Leukocyte Esterase Negative, Urine RBC None, Urine WBC 3-5, Ur Squamous Epith Cells Occasional, Urine Bacteria None 05/12/24 09:41: PT 11.1, INR 1.01, Troponin I < 0.01 05/12/24 11:45: Lactate 1.7, Troponin I < 0.01 I & O for Labs for Last 24 Hours: Intake & Output 05/11/24 05/12/24 05/13/24 05/14/24 23:59 23:59 23:59 23:59 Intake Total 790 / 790 840 / 1080 960 / 960 Output Total 650 / 1050 1357 / 1436 79 / 79 Balance 140 / -260 -517 / -356 881 / 881 Weight 116 lb 0.998 oz 114 lb 10.246 oz 111 lb 4.8 oz Intake & Output 05/10/24 05/11/24 05/12/24 05/13/24 23:59 23:59 23:59 23:59 Intake Total 790 / 790 Output Total 650 / 1050 1075 / 1075 Balance 140 / -260 -1075 / -1075 Weight 116 lb 0.998 oz 116 lb 3.2 oz Microbiology Reports for the Last 24 Hours: Microbiology 05/12/24 07:07 Blood Blood Culture - Preliminary NO GROWTH AFTER 48 HOURS 05/12/24 07:08 Blood Blood Culture - Preliminary NO GROWTH AFTER 48 HOURS 05/13/24 11:31 Thoracic Fluid Gram Stain - Final Microbiology 05/12/24 07:07 Blood Blood Culture - Preliminary NO GROWTH AFTER 24 HOURS 05/12/24 07:08 Blood Blood Culture - Preliminary NO GROWTH AFTER 24 HOURS Constitutional: Present moderate distress Head: Present normocephalic and atraumatic ENT: Present normal exam, normal oropharynx and mucous membranes moist Neck: Present normal inspection and full ROM Respiratory: Present respiratory distress, rhonchi and able to speak in complete sentences; Absent wheezes or crackles Cardiac: Present S1/S2, Tachycardia and radial pulses present GI: Present soft and distention; Absent tenderness or guarding Skin: Present intact; Absent cyanosis or jaundice Neuro: Present alert, awake and oriented x 3 Extremities: Present normal inspection; Absent clubbing or cyanosis Psychiatric: Present normal affect and cooperative Assessment and Plan *Assessment and plan (1) Acute hypoxemic respiratory failure: Status: Acute Category: Medical Code(s): J96.01 - Acute respiratory failure with hypoxia (2) Pleural effusion on right: Status: Acute Category: Medical Code(s): J90 - Pleural effusion, not elsewhere classified (3) Pneumonia: Status: Acute Category: Medical Code(s): J18.9 - Pneumonia, unspecified organism (4) Pneumothorax: Status: Acute Category: Medical Code(s): J93.9 - Pneumothorax, unspecified Plan Mr. Magallon is a 76-year-old male, COPD lung cancer presented to the ER with worsening respiratory distress found to have a large right pleural effusion and increasing oxygen requirements and pulmonary was called for further evaluation and management. Afebrile. Hemodynamically stable. Mild neutrophilic predominant leukocytosis upon admission improving. CTA upon admission no evidence of pulmonary embolism. Large right pleural effusion. Concerning worsening size of the nodular opacity in the right upper lobe from February 2024. CT also noted bilateral groundglass opacities concerning for pneumonia On initial examination patient admits gradually worsening respiratory distress. No known sick contacts but denies any worsening cough or any productive phlegm. Interval update: Status post thoracentesis with removal of 272 0 cc of blood-tinged pleural fluid. Pneumothorax status post chest tube placement. Chest x-ray send improving pneumothorax though scant residual air pocket noted. Plan: Chest tube to waterseal. Repeat chest x-ray in 3 hours Continue oxygen supplementation via nonrebreather with O2 sat goal of 100% Follow-up pleural fluid studies including pleural fluid cytology initiate Bactrim DS twice daily pending sputum and blood cultures. Hold potassium chloride oral supplementation until completion of Bactrim treatment. Follow with sputum culture results
--- NOTE | 2024-05-14 12:30 | XR_ITS ---
PROCEDURE INFORMATION: Exam: XR Chest Exam date and time: 05/14/2024 12:44 PM Age: 68 years old Clinical indication: Shortness of breath; Additional info: Pneumothorax. . F/u. . . RT side chest tube TECHNIQUE: Imaging protocol: Radiologic exam of the chest. Views: 1 view. COMPARISON: CR XR CHEST PORTABLE 05/14/2024 9:44 AM FINDINGS: Tubes, catheters and devices: Small right pleural drainage catheter is unchanged. Lungs: Heterogeneous opacities in the bilateral mid and lower lungs ([id number]) are unchanged. Lung aeration is unchanged. Pleural spaces: Persistent small pneumothorax in the lateral right lung. Small right pleural effusion is unchanged. Heart/Mediastinum: Unremarkable. No cardiomegaly. Bones/joints: No acute osseous or soft tissue abnormality. IMPRESSION: Persistent small pneumothorax in the lateral right lung. Right pleural drainage catheter is present. Unchanged study.
[2024-05-14] MEDS: SODIUM CHLORIDE 3% 15ML NEB 3 ML IH (13:41)
--- NOTE | 2024-05-14 14:40 | PC.NURSE ---
Aox 4, on non rebreather mask 15L o2, wants on 6L NC when eating, 20g in the left upper arm sl, R chest to suction from thoracentesis done yesterday.
--- NOTE | 2024-05-14 16:00 | XR_ITS ---
FINAL REPORT CLINICAL HISTORY: pneumothorax COMPARISON: 3 hours prior FINDINGS: The heart size is normal. There are calcified right paratracheal lymph nodes. A small bore right chest tube is present. The mediastinum is normal. There is a small right pneumothorax which is stable in size. Patchy left perihilar airspace opacities are stable. There is no osseous abnormality. IMPRESSION: No significant change from 3 hours prior. Reviewed, Interpreted and Dictated by Regulo Schaeffer MD Transcribed by Charlene Tello Authenticated and [facility]
[2024-05-14] MEDS: PRO-STAT AWC 30ML LIQUID PACKET 30 ML PO (20:33)
[2024-05-14] MEDS: OLANZapine 5 MG ODT TABLET SL (20:34)
--- NOTE | 2024-05-14 21:00 | XR_ITS ---
PROCEDURE INFORMATION: Exam: XR Chest Exam date and time: 05/14/2024 8:52 PM Age: 68 years old Clinical indication: Other: Pneumothorax TECHNIQUE: Imaging protocol: Radiologic exam of the chest. Views: 1 view. COMPARISON: CR XR CHEST PORTABLE 05/14/2024 3:54 PM FINDINGS: Tubes, catheters and devices: Right-sided chest tube unchanged in position. Lungs: Unchanged patchy lung opacities favor combination of scarring, atelectasis, and edema. Pleural spaces: Right pneumothorax without change in volume. Heart/Mediastinum: Unremarkable. No cardiomegaly. Bones/joints: Unremarkable. IMPRESSION: 1. Right-sided chest tube unchanged in position. Right pneumothorax without change in volume. 2. Unchanged patchy lung opacities favor combination of scarring, atelectasis, and edema.
[2024-05-15] VITALS (8 sets, daily range): BP systolic 114–125; BP diastolic 54–63; PULSE 80–112; RESP 16–22; TEMP 36.4–36.7; O2SAT 97–100; BMI 15.0
[2024-05-15 06:10] LABS: Albumin, Body Fluid 2.4 g/dL (Not Estab.); Glucose, Body Fluid 120 mg/dL (.); LD, Body Fluid 363 IU/L (.)
[2024-05-15] MEDS: IPRATROPIUM/ALBUTEROL 3 ML NEB IH ×3 (06:31→20:12)
[2024-05-15] MEDS: TIOTROPIUM 18MCG/PUFF INHALER 2 CAP IH (06:31)
--- NOTE | 2024-05-15 08:04 | XR_ITS ---
FINAL REPORT CLINICAL HISTORY: chest tube...soa COMPARISON: 05/14/2024 FINDINGS: CHEST 2 VIEWS PA AND LATERAL The heart is normal in size. The mediastinum is unremarkable. Small right small bore chest tube is unchanged. Persistent small peripheral right pneumothorax is stable. Pleural separation measures 1.2 cm. There is persistent patchy airspace opacity in the left perihilar region, probably due to acute pneumonia. IMPRESSION: Probable acute pneumonia. Stable pneumothorax. Reviewed, Interpreted and Dictated by Regulo Schaeffer MD Transcribed by Ame Lagos Authenticated and . [facility]
--- NOTE | 2024-05-15 08:47 | EXP.ACUTE.PN ---
Subjective *Date: 05/15/24 *Time: 08:47 Interval history: Patient states he is feeling a little better today. He denies any pain and states he slept like a rock last night. He was able to eat most of his breakfast. He denies any SOA. Medical Exam Vital signs and Labs for Last 24 Hours: Vital Signs Temp Pulse Pulse Resp BP Pulse Ox O2 Del Method 05/15/24 07:58 97.6 F 112 H 20 114/58 L Nasal Cannula 05/15/24 06:57 Non-Rebreather 05/15/24 06:32 100 H 05/15/24 06:32 104 H 05/15/24 06:32 98 Non-Rebreather 05/15/24 05:00 Non-Rebreather 05/15/24 03:00 Non-Rebreather 05/15/24 01:00 Non-Rebreather 05/15/24 00:00 97.8 F 92 H 22 117/63 98 Non-Rebreather 05/14/24 23:00 Non-Rebreather 05/14/24 21:00 Non-Rebreather 05/14/24 20:00 98 Non-Rebreather 05/14/24 20:00 97.9 F 101 H 16 108/51 L 98 Non-Rebreather 05/14/24 19:46 96 H 05/14/24 19:46 100 H 05/14/24 19:46 98 Non-Rebreather 05/14/24 17:40 Non-Rebreather 05/14/24 16:27 Non-Rebreather 05/14/24 16:00 97.8 F 92 H 18 111/56 L 100 Non-Rebreather 05/14/24 14:22 Non-Rebreather 05/14/24 13:44 77 18 05/14/24 13:44 77 05/14/24 13:44 80 05/14/24 12:18 Non-Rebreather 05/14/24 11:22 97.6 F 92 H 18 99/49 L 99 Non-Rebreather 05/14/24 10:05 Nasal Cannula O2 Flow Rate FiO2 05/15/24 07:58 6 05/15/24 06:57 15 05/15/24 06:32 05/15/24 06:32 05/15/24 06:32 15 05/15/24 05:00 15 05/15/24 03:00 15 05/15/24 01:00 15 05/15/24 00:00 15 05/14/24 23:00 15 05/14/24 21:00 15 05/14/24 20:00 15 05/14/24 20:00 15 05/14/24 19:46 05/14/24 19:46 05/14/24 19:46 15 100 05/14/24 17:40 15 05/14/24 16:27 15 05/14/24 16:00 05/14/24 14:22 15 05/14/24 13:44 05/14/24 13:44 05/14/24 13:44 05/14/24 12:18 15 05/14/24 11:22 05/14/24 10:05 3 Intake and Output 05/14/24 05/15/24 05/15/24 19:59 03:59 11:59 Intake Total 1020 / 1580 200 / 1580 360 / 1580 Output Total 380 / 1280 0 / 1280 900 / 1280 Balance 640 / 300 200 / 300 -540 / 300 Intake: Intake, Oral Amount 1020 / 1580 200 / 1580 360 / 1580 Output: Output, Urine Amount 100 / 1000 0 / 1000 900 / 1000 Output, Chest Tube Drainage 280 / 280 Amount Right 280 / 280 Other: Number of Unmeasured Voids 0 1 0 Weight 111 lb 4.806 oz Patient Weight 05/15/24 11:59 Weight 111 lb 4.806 oz Laboratory Results - last 24 hr 05/13/24 11:31: Fluid Glucose 120, Fluid Total Protein 4.0, Fluid Albumin 2.4, Fluid LDH 363 I & O for Labs for Last 24 Hours: Intake & Output 05/12/24 05/13/24 05/14/24 05/15/24 11:59 11:59 11:59 11:59 Intake Total 790 / 790 1800 / 1800 1580 / 1580 Output Total 1775 / 1775 511 / 511 1280 / 1280 Balance -985 / -985 1289 / 1289 300 / 300 Weight 116 lb 0.998 oz 116 lb 3.2 oz 111 lb 4.8 oz 111 lb 4.806 oz Microbiology Reports for the Last 24 Hours: Microbiology 05/13/24 11:31 Thoracic Fluid Gram Stain - Final 05/13/24 11:31 Thoracic Fluid Body Fluid Culture - Preliminary NO GROWTH AFTER 24 HOURS 05/12/24 07:07 Blood Blood Culture - Preliminary NO GROWTH AFTER 48 HOURS 05/12/24 07:08 Blood Blood Culture - Preliminary NO GROWTH AFTER 48 HOURS Constitutional: Present no acute distress and thin Respiratory: Present crackles (Improved, better air movement) Cardiac: Present Reg Rate and Rhythm GI: Present soft and normal bowel sounds; Absent distention Extremities: Absent tenderness, edema or calf tenderness Neuro: Present alert, awake and oriented x 3 Assessment and Plan *Assessment and plan (1) Acute hypoxemic respiratory failure: Status: Acute Category: Medical Code(s): J96.01 - Acute respiratory failure with hypoxia (2) Pleural effusion on right: Status: Acute Category: Medical Code(s): J90 - Pleural effusion, not elsewhere classified (3) Pneumonia: Status: Acute Category: Medical Code(s): J18.9 - Pneumonia, unspecified organism (4) Primary lung cancer: Status: Acute Category: Medical Code(s): C34.90 - Malignant neoplasm of unspecified part of unspecified bronchus or lung (5) Severe protein-calorie malnutrition: Status: Acute Category: Medical Code(s): E43 - Unspecified severe protein-calorie malnutrition (6) Severe muscle deconditioning: Status: Acute Category: Medical Code(s): R29.898 - Other symptoms and signs involving the musculoskeletal system (7) COPD mixed type: Status: Chronic Category: Medical Code(s): J44.9 - Chronic obstructive pulmonary disease, unspecified (8) Smoking greater than 30 pack years: Status: Chronic Category: Social Hx Code(s): F17.210 - Nicotine dependence, cigarettes, uncomplicated (9) Chest tube in place: Status: Acute Category: Medical Code(s): Z96.89 - Presence of other specified functional implants (10) Pneumothorax: Status: Acute Category: Medical Code(s): J93.9 - Pneumothorax, unspecified Plan Patient is being followed by pulmonology. Repeat CXR showed no change in the right pneumothorax volume. Patient is on nasal oxygen only this am. Will discuss further care with Dr. Lanza.
--- NOTE | 2024-05-15 09:36 | P.PN_ITS ---
Subjective *Date: 05/15/24 *Time: 12:46 Interval history: No acute respiratory vents overnight. Patient admits stable respiratory symptoms. Pulmonology Exam Inpatient Vital signs and Labs for Last 24 Hours: Temp Pulse Resp BP Pulse Ox O2 Del Method O2 Flow Rate 97.6 F 112 H 20 114/58 L 98 Nasal Cannula 6 05/15/24 07:58 05/15/24 07:58 05/15/24 07:58 05/15/24 07:58 05/15/24 06:32 05/15/24 07:58 05/15/24 07:58 FiO2 100 05/14/24 19:46 Laboratory Results - last 24 hr 05/13/24 11:31: Fluid Glucose 120, Fluid Total Protein 4.0, Fluid Albumin 2.4, Fluid LDH 363 Temp Pulse Resp BP Pulse Ox O2 Del Method O2 Flow Rate 97.9 F 115 H 21 115/60 90 L Nasal Cannula 3 05/13/24 08:00 05/13/24 08:00 05/13/24 08:00 05/13/24 08:00 05/13/24 08:00 05/13/24 09:00 05/13/24 09:00 Laboratory Results - last 24 hr 05/12/24 06:51: Urine Color Yellow, Urine Appearance Clear, Urine pH 7.0, Ur Specific [place] 1.015, Urine Protein Negative, Urine Glucose (UA) Negative, Urine Ketones Negative, Urine Blood Negative, Urine Nitrate Negative, Urine Bilirubin Negative, Urine Urobilinogen 1.0, Ur Leukocyte Esterase Negative, Urine RBC None, Urine WBC 3-5, Ur Squamous Epith Cells Occasional, Urine Bacteria None 05/12/24 09:41: PT 11.1, INR 1.01, Troponin I < 0.01 05/12/24 11:45: Lactate 1.7, Troponin I < 0.01 I & O for Labs for Last 24 Hours: Intake & Output 05/12/24 05/13/24 05/14/24 05/15/24 23:59 23:59 23:59 23:59 Intake Total 790 / 790 840 / 1080 1980 / 2180 560 / 560 Output Total 650 / 1050 1357 / 1436 659 / 659 900 / 900 Balance 140 / -260 -517 / -356 1321 / 1521 -340 / -340 Weight 116 lb 0.998 oz 114 lb 10.246 oz 111 lb 4.8 oz 111 lb 4.806 oz Intake & Output 05/10/24 05/11/24 05/12/24 05/13/24 23:59 23:59 23:59 23:59 Intake Total 790 / 790 Output Total 650 / 1050 1075 / 1075 Balance 140 / -260 -1075 / -1075 Weight 116 lb 0.998 oz 116 lb 3.2 oz Microbiology Reports for the Last 24 Hours: Microbiology 05/13/24 11:31 Thoracic Fluid Gram Stain - Final 05/13/24 11:31 Thoracic Fluid Body Fluid Culture - Preliminary NO GROWTH AFTER 24 HOURS 05/12/24 07:07 Blood Blood Culture - Preliminary NO GROWTH AFTER 48 HOURS 05/12/24 07:08 Blood Blood Culture - Preliminary NO GROWTH AFTER 48 HOURS Microbiology 05/12/24 07:07 Blood Blood Culture - Preliminary NO GROWTH AFTER 24 HOURS 05/12/24 07:08 Blood Blood Culture - Preliminary NO GROWTH AFTER 24 HOURS Constitutional: Present moderate distress Head: Present normocephalic and atraumatic ENT: Present normal exam, normal oropharynx and mucous membranes moist Neck: Present normal inspection and full ROM Respiratory: Present respiratory distress, rhonchi and able to speak in complete sentences; Absent wheezes or crackles Cardiac: Present S1/S2, Tachycardia and radial pulses present GI: Present soft and distention; Absent tenderness or guarding Skin: Present intact; Absent cyanosis or jaundice Neuro: Present alert, awake and oriented x 3 Extremities: Present normal inspection; Absent clubbing or cyanosis Psychiatric: Present normal affect and cooperative Assessment and Plan *Assessment and plan (1) Acute hypoxemic respiratory failure: Status: Acute Category: Medical Code(s): J96.01 - Acute respiratory failure with hypoxia (2) Pleural effusion on right: Status: Acute Category: Medical Code(s): J90 - Pleural effusion, not elsewhere classified (3) Pneumonia: Status: Acute Category: Medical Code(s): J18.9 - Pneumonia, unspecified organism (4) Pneumothorax: Status: Acute Category: Medical Code(s): J93.9 - Pneumothorax, unspecified Plan Mr. Magallon is a 76-year-old male, COPD lung cancer presented to the ER with worsening respiratory distress found to have a large right pleural effusion and increasing oxygen requirements and pulmonary was called for further evaluation and management. Afebrile. Hemodynamically stable. Mild neutrophilic predominant leukocytosis upon admission improving. CTA upon admission no evidence of pulmonary embolism. Large right pleural effusion. Concerning worsening size of the nodular opacity in the right upper lobe from February 2024. CT also noted bilateral groundglass opacities concerning for pneumonia On initial examination patient admits gradually worsening respiratory distress. No known sick contacts but denies any worsening cough or any productive phlegm. Status post thoracentesis with removal of 272 0 cc of blood-tinged pleural fluid. Pneumothorax status post chest tube placement. Interval update: Chest x-ray stable pneumothorax. Chest tube has been clamped chest x-ray so far remained stable with no significant change in the note total suppression of 1.2 cm Pleural fluid cytology positive for malignancy. Concern for cancer progression. Discussed with Dr. Mahmood, plan to have a close follow-up outpatient postdischarge to discuss treatment options pending clinical resolution of his pneumothorax and airspace disease Plan: Plan to discharge with Heimlich valve and follow as an outpatient basis. Continue oxygen supplementation to maintain O2 saturation around 90% on the Follow-up pleural fluid studies including pleural fluid cytology Continue Bactrim DS twice daily x 7 days. Blood cultures and pleural fluid culture growth no growth so far. Recommend to hold potassium chloride oral supplementation until completion of Bactrim treatment.
[2024-05-15] MEDS: SULFA/TRIMETHOPRIM 1 TABLET 1 EACH PO ×2 (09:48→21:07)
[2024-05-15] MEDS: GABAPENTIN 600MG TABLET 600 MG PO ×4 (09:48→21:07)
[2024-05-15] MEDS: PRO-STAT AWC 30ML LIQUID PACKET 30 ML PO ×2 (09:48→21:07)
[2024-05-15] MEDS: DEXAMETHASONE 4MG TABLET 4 MG PO ×2 (09:48→21:08)
[2024-05-15] MEDS: MEGESTROL ACETATE 400 MG/10 ML PO (09:48)
[2024-05-15] MEDS: diazePAM 5MG TABLET 5 MG PO ×3 (10:01→21:07)
[2024-05-15 10:54] LABS: Albumin Level 3.3 g/dl (3.5-5.0); Chloride 100 mmol/L (98-107)
[2024-05-15 10:55] LABS: Sodium 136 mmol/L (136-145)
[2024-05-15 10:57] LABS: Blood Urea Nitrogen 23 mg/dl (9-20); Creatinine Clearance Estimated 49 mL/min (50-200); Estimated Glomerular Filt Rate 111 ml/min (>60); GFR (African American) 135 ML/MIN (>60)
[2024-05-15 10:58] LABS: Alanine Aminotransferase 48 U/L (12-78); Albumin/Globulin Ratio 1.1 (1.1-1.8); Alkaline Phosphatase 82 U/L (38-126); Aspartate Amino Transferase 41 U/L (17-59); Basophils % 0.1 % (0.1-2.0); Bilirubin,Total 0.4 mg/dl (0.2-1.3); Calcium 9.3 mg/dl (8.4-10.2); Carbon Dioxide 31 mmol/L (22.0-30.0); Glucose 146 mg/dl (74-100); Hematocrit 35.9 % (42.0-52.0); Hemoglobin 11.5 g/dL (14.1-18.0); Lymphocytes # 0.2 K/mm3 (0.7-4.5); Lymphocytes % 1.5 % (10-50); Mean Corpuscular Hemoglobin 31.8 pg (27.0-31.2); Mean Corpuscular Volume 99.2 fl (80-94); Mean Platelet Volume 9.9 fl (7.4-10.4); Monocytes # 0.9 K/mm3 (0.1-1.0); Monocytes % 7.4 % (1.7-9.3); Neutrophils # 11.4 K/mm3 (1.8-7.8); Neutrophils % 90.8 % (37.0-80.0); Platelet Count 284 K/mm3 (142-424); Red Blood Count 3.62 M/mm3 (4.60-6.20); Red Cell Distribution Width 13.2 % (11.5-17.5); Total Protein,Serum 6.3 g/dl (6.3-8.2); White Blood Count 12.6 K/mm3 (4.8-10.8)
[2024-05-15 11:02] LABS: MANUAL DIFFERENTIAL MANUAL DIFFERENTIAL (MANUAL DIFF)
--- NOTE | 2024-05-15 13:05 | CT_ITS ---
FINAL REPORT TECHNIQUE: Axial images were obtained through the chest without contrast. Coronal and sagittal images were obtained and reviewed. This study was performed with techniques to keep radiation doses as low as reasonably achievable, (ALARA). Individualized dose reduction techniques using automated exposure control or adjustment of mA and/or kV according to the patient's size were employed. CLINICAL HISTORY: Pneumothorax COMPARISON: CTA chest 05/12/2024 FINDINGS: On the mediastinal windows, there are extensive dense bulky right paratracheal and subcarinal calcified nodes. Smaller calcified hilar nodes are seen bilaterally. The heart size is normal. There is no pericardial or pleural effusion. Limited images of the upper abdomen are unremarkable. On the lung windows, the previously noted large right effusion is no longer seen. There is a small bore right chest tube. A small right pneumothorax is noted with pleural separation measuring 1.2 cm. Anteriorly at the right lung base the pleural separation measures up to 3.5 cm. There is ground-glass opacity in the left upper lobe and lower lobes, and patchy bibasilar airspace infiltrates. IMPRESSION: Small bore right chest tube appears in proper position with associated small pneumothorax most evident at the right base. Extensive ground-glass opacity in the left lung appears improved in the left upper lobe but worsened in the left lower lobe. Reviewed, Interpreted and Dictated by Regulo Schaeffer MD Transcribed by Charlene Tello Authenticated and [facility]
[2024-05-15 15:08] LABS: Lymphocytes % 1 % (10-50); Monocytes % 12 % (2-9); Neutrophils % 87 % (42-76); Total Cells Counted 100
[2024-05-15 15:12] LABS: Platelet Estimate Normal; RBC Morphology Normal
[2024-05-15] MEDS: OLANZapine 5 MG ODT TABLET SL (21:08)
[2024-05-16] VITALS (9 sets, daily range): BP systolic 107–125; BP diastolic 51–61; PULSE 77–113; RESP 16–23; TEMP 36.4–37; O2SAT 88–100; BMI 14.6
--- NOTE | 2024-05-16 04:57 | PC.NURSE ---
Patient is alert and oriented, but has been quite fatigued this shift. Speech soft-spoken and mumbled. He was observed to have eyes closed, respirations even and unlabored on 15 L of oxygen via nonrebreather mask, and no apparent distress for the majority of the night. Oxygen saturations have remained >90% this shift. Continuous pulse ox remains in place. Clear but diminished air movement was heard during auscultation of his lungs; bowel sounds and heart sounds were within normal findings. Upon palpation, abdomen was soft and non-tender. Patient's overall appearance is frail. Right eye cloudy (visually impaired). Chest tube/Heimlich valve (unattached to suction/chamber) in place to patient's right side. A male purewick has been utilized this shift; adequate urine output noted and documented accordingly. Urine appearance yellow and transparent. Mild tremoring noted with grasping objects. Aspiration precautions taken. Redness noted to coccyx. Scheduled medications administered per JUN. Blood pressures have been soft, and heart rate has been slightly elevated this shift. At this time, the patient is resting in bed without any further complaints. No acute changes noted thus far. Bed alarm on. Call light within reach.
[2024-05-16] MEDS: IPRATROPIUM/ALBUTEROL 3 ML NEB IH ×3 (06:27→19:00)
[2024-05-16] MEDS: TIOTROPIUM 18MCG/PUFF INHALER 2 CAP IH (06:51)
--- NOTE | 2024-05-16 08:00 | P.PN_ITS ---
Subjective *Date: 05/16/24 *Time: 08:00 Medical Exam Vital signs and Labs for Last 24 Hours: Vital Signs Temp Pulse Pulse Resp BP Pulse Ox O2 Del Method 05/16/24 06:35 Non-Rebreather 05/16/24 05:00 Non-Rebreather 05/16/24 04:00 97.9 F 104 H 16 108/54 L 95 Non-Rebreather 05/16/24 03:00 Non-Rebreather 05/16/24 01:00 Non-Rebreather 05/16/24 00:00 98.6 F 101 H 16 108/53 L 96 Non-Rebreather 05/15/24 23:00 Non-Rebreather 05/15/24 21:00 Non-Rebreather 05/15/24 20:15 95 H 05/15/24 20:15 96 H 05/15/24 20:15 98 Non-Rebreather 05/15/24 20:00 95 H 16 100 Non-Rebreather 05/15/24 20:00 97.8 F 95 H 16 115/59 L 99 Non-Rebreather 05/15/24 17:26 Nasal Cannula 05/15/24 16:00 97.5 F L 105 H 18 116/54 L 97 Non-Rebreather 05/15/24 15:15 Non-Rebreather 05/15/24 14:12 85 05/15/24 14:12 80 05/15/24 13:51 Non-Rebreather 05/15/24 11:57 Non-Rebreather 05/15/24 11:44 98.0 F 105 H 17 125/57 L 99 Non-Rebreather 05/15/24 10:27 Non-Rebreather O2 Flow Rate FiO2 05/16/24 06:35 15 05/16/24 05:00 15 05/16/24 04:00 05/16/24 03:00 15 05/16/24 01:00 15 05/16/24 00:00 05/15/24 23:00 15 05/15/24 21:00 15 05/15/24 20:15 05/15/24 20:15 05/15/24 20:15 15 100 05/15/24 20:00 15 05/15/24 20:00 05/15/24 17:26 15 05/15/24 16:00 05/15/24 15:15 15 05/15/24 14:12 05/15/24 14:12 05/15/24 13:51 15 05/15/24 11:57 15 05/15/24 11:44 05/15/24 10:27 15 Intake and Output 05/15/24 05/16/24 05/16/24 23:59 07:59 15:59 Intake Total 220 / 1170 120 / 120 Output Total 1200 / 2220 750 / 750 Balance -980 / -1050 -630 / -630 Intake: Intake, Oral Amount 220 / 1170 120 / 120 Output: Output, Urine Amount 1200 / 2220 750 / 750 Other: Number of Unmeasured Voids 0 0 Weight 49.124 kg Patient Weight 05/16/24 23:59 Weight 49.124 kg Laboratory Results - last 24 hr 05/15/24 10:34: WBC 12.6 H, RBC 3.62 L, Hgb 11.5 L, Hct 35.9 L, MCV 99.2 H, MCH 31.8 H, MCHC 32.0, RDW 13.2, Plt Count 284, MPV 9.9, Neut % (Auto) 90.8 H, Lymph % (Auto) 1.5 L, [place] % (Auto) 7.4, Eos % (Auto) 0.0 L, Baso % (Auto) 0.1, Neut # (Auto) 11.4 H, Lymph # (Auto) 0.2 L, [place] # (Auto) 0.9, Eos # (Auto) 0.0, Baso # (Auto) 0.0, Total Counted 100, Neutrophils % (Manual) 87 H, Lymphocytes % (Manual) 1 L, Monocytes % (Manual) 12 H, Platelet Estimate Normal, RBC Morphology Normal, Sodium 136, Potassium 5.0, Chloride 100, Carbon Dioxide 31 H, Anion Gap 10.0, BUN 23 H, Creatinine 0.70, Estimated Creat Clear 49, Estimated GFR 111, Est GFR ( Amer) 135, Glucose 146 H, Calcium 9.3, Total Bilirubin 0.4, AST 41, ALT 48, Alkaline Phosphatase 82, Total Protein 6.3, Albumin 3.3 L, Globulin 3.0, Albumin/Globulin Ratio 1.1 I & O for Labs for Last 24 Hours: Intake & Output 0105/14/24 05/15/24 05/16/24 23:59 23:59 23:59 23:59 Intake Total 840 / 1080 1980 / 2180 1050 / 1170 120 / 120 Output Total 1357 / 1436 659 / 659 2220 / 2220 750 / 750 Balance -517 / -356 1321 / 1521 -1170 / -1050 -630 / -630 Weight 52 kg 50.485 kg 50.485 kg 49.124 kg Microbiology Reports for the Last 24 Hours: Microbiology 05/12/24 07:07 Blood Blood Culture - Preliminary NO GROWTH AFTER 4 DAYS 05/12/24 07:08 Blood Blood Culture - Preliminary NO GROWTH AFTER 4 DAYS 05/13/24 11:31 Thoracic Fluid Gram Stain - Final 05/13/24 11:31 Thoracic Fluid Body Fluid Culture - Preliminary NO GROWTH AFTER 48 HOURS The patient's infection will respond to the chosen ABx?: Yes Is the patient receiving the right drug, dose, and route?: Yes Could a more targeted ABx be ordered?: No (WBC 12.6K TODAY, AFEBRILE, NO GROWTH IN CULTURES. CONT CURRENT ABX.)
--- NOTE | 2024-05-16 08:44 | EXP.ACUTE.PN ---
Subjective *Date: 05/16/24 *Time: 08:44 Interval history: Patient is c/o right sided chest pain this am. He states he has a congested cough but cannot produce any sputum. He did not rest as well but is trying to eat. Medical Exam Vital signs and Labs for Last 24 Hours: Vital Signs Temp Pulse Pulse Resp BP Pulse Ox O2 Del Method 05/16/24 08:00 98.2 F 112 H 23 125/51 L 88 L Nasal Cannula 05/16/24 06:35 Non-Rebreather 05/16/24 05:00 Non-Rebreather 05/16/24 04:00 97.9 F 104 H 16 108/54 L 95 Non-Rebreather 05/16/24 03:00 Non-Rebreather 05/16/24 01:00 Non-Rebreather 05/16/24 00:00 98.6 F 101 H 16 108/53 L 96 Non-Rebreather 05/15/24 23:00 Non-Rebreather 05/15/24 21:00 Non-Rebreather 05/15/24 20:15 95 H 05/15/24 20:15 96 H 05/15/24 20:15 98 Non-Rebreather 05/15/24 20:00 95 H 16 100 Non-Rebreather 05/15/24 20:00 97.8 F 95 H 16 115/59 L 99 Non-Rebreather 05/15/24 17:26 Nasal Cannula 05/15/24 16:00 97.5 F L 105 H 18 116/54 L 97 Non-Rebreather 05/15/24 15:15 Non-Rebreather 05/15/24 14:12 85 05/15/24 14:12 80 05/15/24 13:51 Non-Rebreather 05/15/24 11:57 Non-Rebreather 05/15/24 11:44 98.0 F 105 H 17 125/57 L 99 Non-Rebreather 05/15/24 10:27 Non-Rebreather O2 Flow Rate FiO2 05/16/24 08:00 6 05/16/24 06:35 15 05/16/24 05:00 15 05/16/24 04:00 05/16/24 03:00 15 05/16/24 01:00 15 05/16/24 00:00 05/15/24 23:00 15 05/15/24 21:00 15 05/15/24 20:15 05/15/24 20:15 05/15/24 20:15 15 100 05/15/24 20:00 15 05/15/24 20:00 05/15/24 17:26 15 05/15/24 16:00 05/15/24 15:15 15 05/15/24 14:12 05/15/24 14:12 05/15/24 13:51 15 05/15/24 11:57 15 05/15/24 11:44 05/15/24 10:27 15 Intake and Output 05/15/24 05/16/24 05/16/24 19:59 03:59 11:59 Intake Total 390 / 850 220 / 850 240 / 850 Output Total 400 / 1950 1200 / 1950 350 / 1950 Balance -10 / -1100 -980 / -1100 -110 / -1100 Intake: Intake, Oral Amount 390 / 850 220 / 850 240 / 850 Output: Output, Urine Amount 400 / 1950 1200 / 1950 350 / 1950 Other: Number of Unmeasured Voids 0 0 Weight 108 lb 4.8 oz Patient Weight 05/16/24 11:59 Weight 108 lb 4.8 oz Laboratory Results - last 24 hr 05/15/24 10:34: WBC 12.6 H, RBC 3.62 L, Hgb 11.5 L, Hct 35.9 L, MCV 99.2 H, MCH 31.8 H, MCHC 32.0, RDW 13.2, Plt Count 284, MPV 9.9, Neut % (Auto) 90.8 H, Lymph % (Auto) 1.5 L, [place] % (Auto) 7.4, Eos % (Auto) 0.0 L, Baso % (Auto) 0.1, Neut # (Auto) 11.4 H, Lymph # (Auto) 0.2 L, [place] # (Auto) 0.9, Eos # (Auto) 0.0, Baso # (Auto) 0.0, Total Counted 100, Neutrophils % (Manual) 87 H, Lymphocytes % (Manual) 1 L, Monocytes % (Manual) 12 H, Platelet Estimate Normal, RBC Morphology Normal, Sodium 136, Potassium 5.0, Chloride 100, Carbon Dioxide 31 H, Anion Gap 10.0, BUN 23 H, Creatinine 0.70, Estimated Creat Clear 49, Estimated GFR 111, Est GFR ( Amer) 135, Glucose 146 H, Calcium 9.3, Total Bilirubin 0.4, AST 41, ALT 48, Alkaline Phosphatase 82, Total Protein 6.3, Albumin 3.3 L, Globulin 3.0, Albumin/Globulin Ratio 1.1 I & O for Labs for Last 24 Hours: Intake & Output 05/13/24 05/14/24 05/15/24 05/16/24 11:59 11:59 11:59 11:59 Intake Total 790 / 790 1800 / 1800 1580 / 1580 850 / 850 Output Total 1775 / 1775 511 / 511 1400 / 1400 1950 / 1950 Balance -985 / -985 1289 / 1289 180 / 180 -1100 / -1100 Weight 116 lb 3.2 oz 111 lb 4.8 oz 111 lb 4.806 oz 108 lb 4.8 oz Microbiology Reports for the Last 24 Hours: Microbiology 05/12/24 07:07 Blood Blood Culture - Preliminary NO GROWTH AFTER 4 DAYS 05/12/24 07:08 Blood Blood Culture - Preliminary NO GROWTH AFTER 4 DAYS 05/13/24 11:31 Thoracic Fluid Gram Stain - Final 05/13/24 11:31 Thoracic Fluid Body Fluid Culture - Preliminary NO GROWTH AFTER 48 HOURS Constitutional: Present no acute distress Respiratory: Present rales (right side) and rhonchi (right side) Cardiac: Present Reg Rate and Rhythm GI: Present soft; Absent distention or tenderness Extremities: Absent edema Skin: Present intact Neuro: Present alert, awake and oriented x 3 Assessment and Plan *Assessment and plan (1) Acute hypoxemic respiratory failure: Status: Acute Category: Medical Code(s): J96.01 - Acute respiratory failure with hypoxia (2) Pleural effusion on right: Status: Acute Category: Medical Code(s): J90 - Pleural effusion, not elsewhere classified (3) Pneumonia: Status: Acute Category: Medical Code(s): J18.9 - Pneumonia, unspecified organism (4) Primary lung cancer: Status: Acute Category: Medical Code(s): C34.90 - Malignant neoplasm of unspecified part of unspecified bronchus or lung (5) Severe protein-calorie malnutrition: Status: Acute Category: Medical Code(s): E43 - Unspecified severe protein-calorie malnutrition (6) Severe muscle deconditioning: Status: Acute Category: Medical Code(s): R29.898 - Other symptoms and signs involving the musculoskeletal system (7) COPD mixed type: Status: Chronic Category: Medical Code(s): J44.9 - Chronic obstructive pulmonary disease, unspecified (8) Smoking greater than 30 pack years: Status: Chronic Category: Social Hx Code(s): F17.210 - Nicotine dependence, cigarettes, uncomplicated (9) Chest tube in place: Status: Acute Category: Medical Code(s): Z96.89 - Presence of other specified functional implants (10) Pneumothorax: Status: Acute Category: Medical Code(s): J93.9 - Pneumothorax, unspecified Plan Patient is being followed by pulmonology. His plan was to discharge with Heimlich valve and follow as an outpatient. He felt the patient will need to continue oxygen supplementation to maintain O2 saturation around 90%. He also wanted the patient to continue Bactrim DS twice daily x 7 days. The patient is having more chest pain and a worsening cough this am. Will get a repeat CXR and discuss further care with Dr. Lanza.
--- NOTE | 2024-05-16 08:48 | XR_ITS ---
FINAL REPORT CLINICAL HISTORY: right pneumothorax, right sided wheezing and pain COMPARISON: 05/15/2024 FINDINGS: SINGLE VIEW CHEST The heart is normal in size. The mediastinum is unremarkable. Right small bore chest tube is identified. There is significant increase in size in the right pneumothorax, now 3.5 cm in pleural separation laterally. There is persistent left perihilar airspace opacity. IMPRESSION: Right pneumothorax, increase in size. Findings were reported to patient's nurse on 05/16/2024 at 9:52 AM Reviewed, Interpreted and Dictated by Regulo Schaeffer MD Transcribed by Ame Lagos Authenticated and [facility]
[2024-05-16] MEDS: SULFA/TRIMETHOPRIM 1 TABLET 1 EACH PO ×2 (09:01→21:47)
[2024-05-16] MEDS: diazePAM 5MG TABLET 5 MG PO ×3 (09:01→21:46)
[2024-05-16] MEDS: DEXAMETHASONE 4MG TABLET 4 MG PO ×2 (09:01→21:47)
[2024-05-16] MEDS: GABAPENTIN 600MG TABLET 600 MG PO ×4 (09:01→21:46)
[2024-05-16] MEDS: PRO-STAT AWC 30ML LIQUID PACKET 30 ML PO ×2 (09:01→21:46)
--- NOTE | 2024-05-16 09:45 | P.PN_ITS ---
Subjective *Date: 05/16/24 *Time: 14:51 Interval history: No acute respiratory events overnight. Patient denies any new respiratory complaints Pulmonology Exam Inpatient Vital signs and Labs for Last 24 Hours: Temp Pulse Resp BP Pulse Ox O2 Del Method O2 Flow Rate 98.2 F 112 H 23 125/51 L 88 L Nasal Cannula 6 05/16/24 08:00 05/16/24 08:00 05/16/24 08:00 05/16/24 08:00 05/16/24 08:00 05/16/24 08:00 05/16/24 08:00 FiO2 100 05/15/24 20:15 Laboratory Results - last 24 hr 05/15/24 10:34: WBC 12.6 H, RBC 3.62 L, Hgb 11.5 L, Hct 35.9 L, MCV 99.2 H, MCH 31.8 H, MCHC 32.0, RDW 13.2, Plt Count 284, MPV 9.9, Neut % (Auto) 90.8 H, Lymph % (Auto) 1.5 L, [place] % (Auto) 7.4, Eos % (Auto) 0.0 L, Baso % (Auto) 0.1, Neut # (Auto) 11.4 H, Lymph # (Auto) 0.2 L, [place] # (Auto) 0.9, Eos # (Auto) 0.0, Baso # (Auto) 0.0, Total Counted 100, Neutrophils % (Manual) 87 H, Lymphocytes % (Manual) 1 L, Monocytes % (Manual) 12 H, Platelet Estimate Normal, RBC Morphology Normal, Sodium 136, Potassium 5.0, Chloride 100, Carbon Dioxide 31 H, Anion Gap 10.0, BUN 23 H, Creatinine 0.70, Estimated Creat Clear 49, Estimated GFR 111, Est GFR ( Amer) 135, Glucose 146 H, Calcium 9.3, Total Bilirubin 0.4, AST 41, ALT 48, Alkaline Phosphatase 82, Total Protein 6.3, Albumin 3.3 L, Globulin 3.0, Albumin/Globulin Ratio 1.1 Temp Pulse Resp BP Pulse Ox O2 Del Method O2 Flow Rate 97.9 F 115 H 21 115/60 90 L Nasal Cannula 3 05/13/24 08:00 05/13/24 08:00 05/13/24 08:00 05/13/24 08:00 05/13/24 08:00 05/13/24 09:00 05/13/24 09:00 Laboratory Results - last 24 hr 05/12/24 06:51: Urine Color Yellow, Urine Appearance Clear, Urine pH 7.0, Ur Specific [place] 1.015, Urine Protein Negative, Urine Glucose (UA) Negative, Urine Ketones Negative, Urine Blood Negative, Urine Nitrate Negative, Urine Bilirubin Negative, Urine Urobilinogen 1.0, Ur Leukocyte Esterase Negative, Urine RBC None, Urine WBC 3-5, Ur Squamous Epith Cells Occasional, Urine Bacteria None 05/12/24 09:41: PT 11.1, INR 1.01, Troponin I < 0.01 05/12/24 11:45: Lactate 1.7, Troponin I < 0.01 I & O for Labs for Last 24 Hours: Intake & Output 05/13/24 05/14/24 05/15/24 05/16/24 23:59 23:59 23:59 23:59 Intake Total 840 / 1080 1980 / 2180 1050 / 1170 360 / 360 Output Total 1357 / 1436 659 / 659 2220 / 2220 750 / 750 Balance -517 / -356 1321 / 1521 -1170 / -1050 -390 / -390 Weight 114 lb 10.246 oz 111 lb 4.8 oz 111 lb 4.806 oz 108 lb 4.8 oz Intake & Output 05/10/24 05/11/24 05/12/24 05/13/24 23:59 23:59 23:59 23:59 Intake Total 790 / 790 Output Total 650 / 1050 1075 / 1075 Balance 140 / -260 -1075 / -1075 Weight 116 lb 0.998 oz 116 lb 3.2 oz Microbiology Reports for the Last 24 Hours: Microbiology 05/12/24 07:07 Blood Blood Culture - Preliminary NO GROWTH AFTER 4 DAYS 05/12/24 07:08 Blood Blood Culture - Preliminary NO GROWTH AFTER 4 DAYS 05/13/24 11:31 Thoracic Fluid Gram Stain - Final 05/13/24 11:31 Thoracic Fluid Body Fluid Culture - Preliminary NO GROWTH AFTER 48 HOURS Microbiology 05/12/24 07:07 Blood Blood Culture - Preliminary NO GROWTH AFTER 24 HOURS 05/12/24 07:08 Blood Blood Culture - Preliminary NO GROWTH AFTER 24 HOURS Constitutional: Present moderate distress Head: Present normocephalic and atraumatic ENT: Present normal exam, normal oropharynx and mucous membranes moist Neck: Present normal inspection and full ROM Respiratory: Present respiratory distress, rhonchi, diminished air movement and able to speak in complete sentences; Absent wheezes or crackles Cardiac: Present S1/S2, Tachycardia and radial pulses present GI: Present soft and distention; Absent tenderness or guarding Skin: Present intact; Absent cyanosis or jaundice Neuro: Present alert, awake and oriented x 3 Extremities: Present normal inspection; Absent clubbing or cyanosis Psychiatric: Present normal affect and cooperative Assessment and Plan *Assessment and plan (1) Acute hypoxemic respiratory failure: Status: Acute Category: Medical Code(s): J96.01 - Acute respiratory failure with hypoxia (2) Pleural effusion on right: Status: Acute Category: Medical Code(s): J90 - Pleural effusion, not elsewhere classified (3) Pneumonia: Status: Acute Category: Medical Code(s): J18.9 - Pneumonia, unspecified organism (4) Pneumothorax: Status: Acute Category: Medical Code(s): J93.9 - Pneumothorax, unspecified (5) Malignant pleural effusion: Status: Acute Category: Medical Code(s): J91.0 - Malignant pleural effusion Plan Mr. Magallon is a 76-year-old male, COPD lung cancer presented to the ER with worsening respiratory distress found to have a large right pleural effusion and increasing oxygen requirements and pulmonary was called for further evaluation and management. Afebrile. Hemodynamically stable. Mild neutrophilic predominant leukocytosis upon admission improving. CTA upon admission no evidence of pulmonary embolism. Large right pleural effusion. Concerning worsening size of the nodular opacity in the right upper lobe from February 2024. CT also noted bilateral groundglass opacities concerning for pneumonia On initial examination patient admits gradually worsening respiratory distress. No known sick contacts but denies any worsening cough or any productive phlegm. Status post thoracentesis with removal of 272 0 cc of blood-tinged pleural fluid. Pneumothorax status post chest tube placement. No significant change in the pneumothorax for 36 hours status post chest tube clamping. Heimlich valve was placed yesterday. Repeat chest X morning concerning for worsening pneumothorax. Interval update: Pleural fluid cytology resulted positive for malignancy consistent with patient's prior pulmonary adenocarcinoma. Chest tube connected to Heimlich valve yesterday and repeat chest x-ray from this morning showed worsening pneumothorax. Placed a chest tube on suction with repeat chest x-ray showed no significant improvement in the pneumothorax. Chest tube repositioned and connected back to suction. Follow-up with repeat chest x-ray. Plan: Continue oxygen supplementation to maintain O2 saturation around 90% on the Continue Bactrim DS twice daily x 7 days. Blood cultures and pleural fluid culture growth no growth so far. Recommend to hold potassium chloride oral supplementation until completion of Bactrim treatment.
--- NOTE | 2024-05-16 12:10 | XR_ITS ---
FINAL REPORT CLINICAL HISTORY: Pneumothorax COMPARISON: 05/16/2024 FINDINGS: SINGLE VIEW CHEST The heart is normal in size. The mediastinum is unremarkable. Small bore chest tube is identified. There is stable left perihilar airspace opacity. Moderate right pneumothorax is unchanged. IMPRESSION: Stable exam. Reviewed, Interpreted and Dictated by Regulo Schaeffer MD Transcribed by Ame Lagos Authenticated and [facility]
--- NOTE | 2024-05-16 14:00 | PC.NURSE ---
Dr. Victoria at bedside readjusting chest tube.
--- NOTE | 2024-05-16 14:44 | XR_ITS ---
PROCEDURE INFORMATION: Exam: XR Chest Exam date and time: 05/16/2024 2:42 PM Age: 68 years old Clinical indication: Condition or disease; Lung condition and disease; Pneumothorax TECHNIQUE: Imaging protocol: Radiologic exam of the chest. Views: 1 view. COMPARISON: CR XR CHEST PORTABLE 05/14/2024 8:52 PM FINDINGS: Tubes, catheters and devices: There is a right-sided chest tube projecting over right lung base unchanged in position. Lungs: There are scattered emphysematous changes redemonstrated. There is scattered indistinct interstitial infiltrate left mid to lower lung zone redemonstrated, stable. There are chronic granulomatous calcifications within the left lung and mediastinum redemonstrated. Pleural spaces: There is a small right pneumothorax improved from most recent exam projecting over the lateral aspect of the right upper hemithorax and terminating at the level of the mid right lung zone. Heart/Mediastinum: See Lungs finding. Bones/joints: No acute bony abnormalities detected. IMPRESSION: 1. Small right pneumothorax improved from most recent exam. 2. Persistent left mid-lower lobe interstitial infiltrate, unchanged.
--- NOTE | 2024-05-16 21:00 | XR_ITS ---
PROCEDURE INFORMATION: Exam: XR Chest Exam date and time: 05/16/2024 9:08 PM Age: 68 years old Clinical indication: Other: Pneumothorax TECHNIQUE: Imaging protocol: Radiologic exam of the chest. Views: 1 view. COMPARISON: CR XR CHEST PORTABLE 05/16/2024 2:42 PM FINDINGS: Tubes, catheters and devices: Pigtail catheter tip projected over right lung base. Lungs: Modestly increased right pneumothorax with pneumothorax pocket measuring up to 2.4 from 1.1 cm. Pleural spaces: Unremarkable. No pleural effusion. No pneumothorax. Heart/Mediastinum: No mediastinal shift. No cardiomegaly. Bones/joints: Unremarkable. IMPRESSION: 1. Modestly increased right pneumothorax although possibly possibly reflecting slight projectional differences. 2. Similar right pigtail pleural catheter placement.
[2024-05-16] MEDS: OLANZapine 5 MG ODT TABLET SL (21:47)
--- NOTE | 2024-05-16 22:13 | PC.NURSE ---
Right chest tube suction was stopped during shift change per Marshall's request prior to the patient's chest x-ray that was ordered for 21:00. Chest x-ray was completed, and Dr Olivares was notified of this by the charge nurse (Janette Alfredo RN). Another chest x-ray was ordered for the morning at 06:00 per Marshall. He also stated for now, the chest tube suction is to be resumed at 20 cm. Nonrebreather also remains in place at 15 L oxygen flow.
[2024-05-17] VITALS (25 sets, daily range): BP systolic 91–123; BP diastolic 48–64; PULSE 83–130; RESP 16–30; TEMP 36.9–37.6; O2SAT 86–97; BMI 15.0
--- NOTE | 2024-05-17 | PC.NURSE ---
Chest tube chamber marked by me at this time. Drainage in chamber is currently at 130 mL (10 mL increase thus far from the previous shift marker at 120 mL). Drainage appearance is serosanguineous.
--- NOTE | 2024-05-17 04:19 | PC.NURSE ---
Patient is alert and oriented. Patient appeared to be less fatigued, more conversational, and easier to arouse this shift compared to the previous rn shift mgr. He was observed to have eyes closed, respirations even and unlabored, and no apparent distress for the majority of the night. A nonrebreather on 15 L of oxygen remains in place. Patient's right chest tube (reconfigured during the previous shift) has remained on 20 cm of suction for the majority of the shift (see prior note). Chest tube chamber/output has been documented accordingly. Upon auscultation of the patient's lungs, inspiratory/expiratory rhonchi could be heard. The patient stated that he continues to have a cough, but he has not been able to get anything out thus far. Oxygen saturations have remained within the upper 90s. Blood pressures remain soft and heart rate remains slightly elevated. Scheduled medications have been administered per JUN. Patient continues to require supervision/assistance during eating/drinking; aspiration precautions taken. Dentures were removed at this bedside. Patient continues to utilize a purewick; urine output has been emptied and documented accordingly as well. Heel protectors were applied and pillows were given for bony prominence comfort. Redness remains on the patient's coccyx; turning/repositioning by staff ongoing. At this time, the patient is resting in bed without any further complaints. No acute changes noted thus far. Bed alarm on. Call light within reach.
--- NOTE | 2024-05-17 05:04 | PC.NURSE ---
Addendum entered by Stephanie Junior RN 05/17/24 06:18: Suction resumed at this time. More drainage was noted in the chamber (8 mL increase). Chamber is marked at approximately 138 mL at this time. Total of 18 mL of right chest tube drainage for this shift. Original Note: Right chest tube suction paused at this time pending another chest x-ray during this shift for 06:00. Also, no further amount of drainage was observed in the chamber thus far (maynor remains at 130 mL; total amount out 10 mL this shift).
--- NOTE | 2024-05-17 06:00 | XR_ITS ---
PROCEDURE INFORMATION: Exam: XR Chest Exam date and time: 05/17/2024 6:05 AM Age: 68 years old Clinical indication: Device placement; Chest tube TECHNIQUE: Imaging protocol: Radiologic exam of the chest. Views: 1 view. COMPARISON: CR XR CHEST PORTABLE 05/16/2024 9:08 PM FINDINGS: Tubes, catheters and devices: Stable positioning of right pleural drain. Lungs: COPD changes are again seen, stable interstitial markings from prior comparison. Pleural spaces: Interval decrease in pneumothorax with residual air gap noted at the right lower lobe and lateral aspect of the lung field. Heart/Mediastinum: Unremarkable. No cardiomegaly. Bones/joints: Unremarkable. IMPRESSION: 1. Stable positioning of the right pleural drain. 2. Improvement in right pneumothorax with residual free air noted at the lower and periphery of the right lung field.
[2024-05-17] MEDS: IPRATROPIUM/ALBUTEROL 3 ML NEB IH ×5 (06:39→21:24)
[2024-05-17] MEDS: TIOTROPIUM 18MCG/PUFF INHALER 2 CAP IH (06:39)
--- NOTE | 2024-05-17 08:17 | EXP.ACUTE.PN ---
Subjective *Date: 05/17/24 *Time: 08:17 Interval history: Patient states he is still SOA. His pain is better since he has been hooked back up to suction. He has a horribly congested cough and cannot produce any sputum. He is not hungry this am. Medical Exam Vital signs and Labs for Last 24 Hours: Vital Signs Temp Pulse Pulse Resp BP Pulse Ox O2 Del Method 05/17/24 06:43 109 H 05/17/24 06:43 109 H 05/17/24 06:43 94 L Non-Rebreather 05/17/24 06:35 Non-Rebreather 05/17/24 05:00 Non-Rebreather 05/17/24 04:00 98.5 F 109 H 16 119/56 L 92 L Non-Rebreather 05/17/24 03:00 Non-Rebreather 05/17/24 01:00 Non-Rebreather 05/16/24 23:30 97.7 F 109 H 16 107/55 L 97 Non-Rebreather 05/16/24 23:00 Non-Rebreather 05/16/24 21:00 Non-Rebreather 05/16/24 20:00 113 H 20 100 Non-Rebreather 05/16/24 20:00 98.6 F 113 H 20 112/54 L 100 Non-Rebreather 05/16/24 19:00 105 H 05/16/24 19:00 104 H 05/16/24 19:00 98 Non-Rebreather 05/16/24 16:00 98.3 F 108 H 18 120/56 L 98 Non-Rebreather 05/16/24 13:05 80 05/16/24 13:05 77 05/16/24 11:16 97.6 F 108 H 18 117/61 95 Non-Rebreather O2 Flow Rate FiO2 05/17/24 06:43 05/17/24 06:43 05/17/24 06:43 15 100 05/17/24 06:35 15 05/17/24 05:00 15 05/17/24 04:00 05/17/24 03:00 15 05/17/24 01:00 15 05/16/24 23:30 05/16/24 23:00 15 05/16/24 21:00 15 05/16/24 20:00 15 05/16/24 20:00 05/16/24 19:00 05/16/24 19:00 05/16/24 19:00 15 05/16/24 16:00 05/16/24 13:05 05/16/24 13:05 05/16/24 11:16 Intake and Output 05/16/24 05/17/24 05/17/24 19:59 03:59 11:59 Intake Total 870 / 1120 200 / 1120 50 / 1120 Output Total 820 / 1588 360 / 1588 408 / 1588 Balance 50 / -468 -160 / -468 -358 / -468 Intake: Intake, Oral Amount 870 / 1120 200 / 1120 50 / 1120 Output: Output, Urine Amount 700 / 1450 350 / 1450 400 / 1450 Output, Chest Tube Drainage 120 / 138 10 / 138 8 / 138 Amount Right 120 / 138 10 / 138 8 / 138 Other: Number of Unmeasured Voids 0 1 Weight 111 lb 4.8 oz Patient Weight 05/17/24 11:59 Weight 111 lb 4.8 oz I & O for Labs for Last 24 Hours: Intake & Output 05/14/24 05/15/24 05/16/24 05/17/24 11:59 11:59 11:59 11:59 Intake Total 1800 / 1800 1580 / 1580 910 / 910 1120 / 1120 Output Total 511 / 511 1400 / 1400 2350 / 2350 1588 / 1588 Balance 1289 / 1289 180 / 180 -1440 / -1440 -468 / -468 Weight 111 lb 4.8 oz 111 lb 4.806 oz 108 lb 4.8 oz 111 lb 4.8 oz Microbiology Reports for the Last 24 Hours: Microbiology 05/12/24 07:08 Blood Blood Culture - Final NO GROWTH AFTER 5 DAYS 05/12/24 07:07 Blood Blood Culture - Final NO GROWTH AFTER 5 DAYS 05/13/24 11:31 Thoracic Fluid Gram Stain - Final 05/13/24 11:31 Thoracic Fluid Body Fluid Culture - Preliminary NO GROWTH AFTER 72 HOURS Comment:: Does not appear to feel well Respiratory: Present rales (bilateral), rhonchi (bilateral) and wheezes (bilateral) Cardiac: Present Reg Rate and Rhythm GI: Present soft; Absent distention or tenderness Extremities: Absent edema Skin: Present intact Neuro: Present alert, awake and oriented x 3 Assessment and Plan *Assessment and plan (1) Acute hypoxemic respiratory failure: Status: Acute Category: Medical Code(s): J96.01 - Acute respiratory failure with hypoxia (2) Pleural effusion on right: Status: Acute Category: Medical Code(s): J90 - Pleural effusion, not elsewhere classified (3) Pneumonia: Status: Acute Category: Medical Code(s): J18.9 - Pneumonia, unspecified organism (4) Primary lung cancer: Status: Acute Category: Medical Code(s): C34.90 - Malignant neoplasm of unspecified part of unspecified bronchus or lung (5) Severe protein-calorie malnutrition: Status: Acute Category: Medical Code(s): E43 - Unspecified severe protein-calorie malnutrition (6) Severe muscle deconditioning: Status: Acute Category: Medical Code(s): R29.898 - Other symptoms and signs involving the musculoskeletal system (7) COPD mixed type: Status: Chronic Category: Medical Code(s): J44.9 - Chronic obstructive pulmonary disease, unspecified (8) Smoking greater than 30 pack years: Status: Chronic Category: Social Hx Code(s): F17.210 - Nicotine dependence, cigarettes, uncomplicated (9) Chest tube in place: Status: Acute Category: Medical Code(s): Z96.89 - Presence of other specified functional implants (10) Pneumothorax: Status: Acute Category: Medical Code(s): J93.9 - Pneumothorax, unspecified (11) Malignant pleural effusion: Status: Acute Category: Medical Code(s): J91.0 - Malignant pleural effusion Plan The patient's pleural fluid cytology resulted positive for malignancy consistent with his prior pulmonary adenocarcinoma. Chest x-ray from yesterday showed a worsening pneumothorax and his chest tube was placed back to suction. He had to be placed back on the nonrebreather. His CXR from this am shows improvement in the right pneumothorax with residual free air at the lower and periphery of the right lung field. He has a horrible cough and is unable to produce any sputum. Pulmonology to follow. Will discuss further care with Dr. Lanza.
[2024-05-17 09:14] LABS: Adenovirus,PCR Not Detected (NotDetected); Bordetella Pertussis Not Detected (NotDetected); Chlamydophila Pneumoniae, PCR Not Detected (NotDetected); Coronavirus 19, PCR Not Detected (NotDetected); Coronavirus 229E Not Detected (NotDetected); Coronavirus NL63 Not Detected (NotDetected); Coronavirus OC43 Not Detected (NotDetected); Coronovirus HKU1,PCR Not Detected (NotDetected); Human Metapneumovirus Not Detected (NotDetected); Influenza A, PCR Not Detected (NotDetected); Influenza AH1, 2009 Not Detected (NotDetected); Influenza AH1, PCR Not Detected (NotDetected); Influenza AH3,PCR Not Detected (NotDetected); Influenza B, PCR Not Detected (NotDetected); Mycoplasma Pneumoniae, PCR Not Detected (NotDetected); Parainfluenza 1, PCR Not Detected (NotDetected); Parainfluenza 2, PCR Not Detected (NotDetected); Parainfluenza 3, PCR Not Detected (NotDetected); Parainfluenza 4, PCR Not Detected (NotDetected); Respiratory Syncytial Virus Not Detected (NotDetected); Rhinovirus/Enterovirus Not Detected (NotDetected)
--- NOTE | 2024-05-17 09:26 | PC.NURSE ---
Sputum specimen sent to lab at this time
[2024-05-17] MEDS: SULFA/TRIMETHOPRIM 1 TABLET 1 EACH PO (09:30)
[2024-05-17] MEDS: GABAPENTIN 600MG TABLET 600 MG PO ×3 (09:30→16:44)
[2024-05-17] MEDS: DEXAMETHASONE 4MG TABLET 4 MG PO (09:30)
[2024-05-17] MEDS: PRO-STAT AWC 30ML LIQUID PACKET 30 ML PO (09:30)
[2024-05-17] MEDS: MEGESTROL ACETATE 400 MG/10 ML PO (09:31)
--- NOTE | 2024-05-17 09:33 | EXP.PULM.PN ---
Subjective *Date: 05/20/24 *Time: 09:50 Interval history: No acute respiratory events Pulmonology Exam Inpatient Vital signs and Labs for Last 24 Hours: Temp Pulse Resp BP Pulse Ox O2 Del Method O2 Flow Rate 98.7 F 110 H 20 123/57 L 90 L Non-Rebreather 15 05/17/24 08:00 05/17/24 08:00 05/17/24 08:00 05/17/24 08:00 05/17/24 08:00 05/17/24 08:00 05/17/24 06:43 FiO2 100 05/17/24 06:43 Temp Pulse Resp BP Pulse Ox O2 Del Method O2 Flow Rate 97.9 F 115 H 21 115/60 90 L Nasal Cannula 3 05/13/24 08:00 05/13/24 08:00 05/13/24 08:00 05/13/24 08:00 05/13/24 08:00 05/13/24 09:00 05/13/24 09:00 Laboratory Results - last 24 hr 05/12/24 06:51: Urine Color Yellow, Urine Appearance Clear, Urine pH 7.0, Ur Specific [place] 1.015, Urine Protein Negative, Urine Glucose (UA) Negative, Urine Ketones Negative, Urine Blood Negative, Urine Nitrate Negative, Urine Bilirubin Negative, Urine Urobilinogen 1.0, Ur Leukocyte Esterase Negative, Urine RBC None, Urine WBC 3-5, Ur Squamous Epith Cells Occasional, Urine Bacteria None 05/12/24 09:41: PT 11.1, INR 1.01, Troponin I < 0.01 05/12/24 11:45: Lactate 1.7, Troponin I < 0.01 I & O for Labs for Last 24 Hours: Intake & Output 05/14/24 05/15/24 05/16/24 05/17/24 23:59 23:59 23:59 23:59 Intake Total 1979 1050 / 1170 1290 / 1490 250 / 250 Output Total 659 / 659 2220 / 2220 1969 768 / 768 Balance 1321 / 1521 -1170 / -1050 -680 / -515 -518 / -518 Weight 111 lb 4.8 oz 111 lb 4.806 oz 108 lb 4.8 oz 111 lb 4.8 oz Intake & Output 01/05/11/24 05/12/24 05/13/24 23:59 23:59 23:59 23:59 Intake Total 790 / 790 Output Total 650 / 1050 1075 / 1075 Balance 140 / -260 -1075 / -1075 Weight 116 lb 0.998 oz 116 lb 3.2 oz Microbiology Reports for the Last 24 Hours: Microbiology 05/12/24 07:08 Blood Blood Culture - Final NO GROWTH AFTER 5 DAYS 05/12/24 07:07 Blood Blood Culture - Final NO GROWTH AFTER 5 DAYS 05/13/24 11:31 Thoracic Fluid Gram Stain - Final 05/13/24 11:31 Thoracic Fluid Body Fluid Culture - Preliminary NO GROWTH AFTER 72 HOURS Microbiology 05/12/24 07:07 Blood Blood Culture - Preliminary NO GROWTH AFTER 24 HOURS 05/12/24 07:08 Blood Blood Culture - Preliminary NO GROWTH AFTER 24 HOURS Constitutional: Present moderate distress Head: Present normocephalic and atraumatic ENT: Present normal exam, normal oropharynx and mucous membranes moist Neck: Present normal inspection and full ROM Respiratory: Present respiratory distress, rhonchi, diminished air movement and able to speak in complete sentences; Absent wheezes or crackles Cardiac: Present S1/S2, Tachycardia and radial pulses present GI: Present soft and distention; Absent tenderness or guarding Skin: Present intact; Absent cyanosis or jaundice Neuro: Present alert, awake and oriented x 3 Extremities: Present normal inspection; Absent clubbing or cyanosis Psychiatric: Present normal affect and cooperative Assessment and Plan *Assessment and plan (1) Acute hypoxemic respiratory failure: Status: Acute Category: Medical Code(s): J96.01 - Acute respiratory failure with hypoxia (2) Pleural effusion on right: Status: Acute Category: Medical Code(s): J90 - Pleural effusion, not elsewhere classified (3) Pneumonia: Status: Acute Category: Medical Code(s): J18.9 - Pneumonia, unspecified organism (4) Pneumothorax: Status: Acute Category: Medical Code(s): J93.9 - Pneumothorax, unspecified (5) Malignant pleural effusion: Status: Acute Category: Medical Code(s): J91.0 - Malignant pleural effusion Plan Mr. Magallon is a 76-year-old male, COPD lung cancer presented to the ER with worsening respiratory distress found to have a large right pleural effusion and increasing oxygen requirements and pulmonary was called for further evaluation and management. Afebrile. Hemodynamically stable. Mild neutrophilic predominant leukocytosis upon admission improving. CTA upon admission no evidence of pulmonary embolism. Large right pleural effusion. Concerning worsening size of the nodular opacity in the right upper lobe from February 2024. CT also noted bilateral groundglass opacities concerning for pneumonia On initial examination patient admits gradually worsening respiratory distress. No known sick contacts but denies any worsening cough or any productive phlegm. Status post thoracentesis with removal of 272 0 cc of blood-tinged pleural fluid. Pneumothorax status post chest tube placement. No significant change in the pneumothorax for 36 hours status post chest tube clamping. Heimlich valve was placed yesterday. Repeat chest X morning concerning for worsening pneumothorax. Pleural fluid cytology resulted positive for malignancy consistent with patient's prior pulmonary adenocarcinoma. Interval update: Chest tube placed back to suction overnight secondary to worsening pneumothorax repeat chest x-ray improving pneumothorax. No new pulmonary infiltrates. Patient noted to acute decline in her respiratory status needing high flow nasal oxygen supplementation to maintain O2 saturation goal of 90% and above this morning. ABG showed worsening hypoxic respiratory failure. CT PE, bilateral worsening consolidative changes left greater than right. Near complete resolution of the noted pneumothorax. No obvious evidence of large proximal occlusive pulmonary embolism. Concern for nonocclusive distal abnormalities, will follow with the final read. Afebrile. Hemodynamically stable. No evidence of worsening leukocytosis. Plan: Follow-up with CT PE protocol Oxygen supplementation supplementation via high flow nasal cannula to maintain O2 saturation goal of 90% Continue oxygen supplementation to maintain O2 saturation around 90% and above. Escalate antibiotics to Zosyn with repeat sputum culture results. Continue chest tube to suction at -20 cm h2O
[2024-05-17] MEDS: diazePAM 5MG TABLET 5 MG PO ×2 (09:37→14:07)
--- NOTE | 2024-05-17 10:48 | CT_ITS ---
FINAL REPORT TECHNIQUE: The patient was injected with IV contrast. Axial images were obtained through the chest in a PE protocol. 3-D reconstruction images were also performed. Individualized dose reduction techniques using automated exposure control or adjustment of the MA and/or KV according to patient's size were employed. CLINICAL HISTORY: Hypoxia COMPARISON: 05/15/2024 FINDINGS: Mediastinal vasculature is adequately opacified. No pulmonary artery filling defects are identified to suggest PE. There is no aortic dissection. There are densely calcified right paratracheal and subcarinal lymph nodes. Abnormal soft tissue in the subcarinal region is stable. The heart size is normal. There is no pericardial or pleural effusion. Dense bibasilar consolidations, [id number]. There is a small bore right chest tube which is unchanged in position. The previously noted right pneumothorax has completely resolved. Ground-glass opacities are seen in the upper lobes bilaterally, [id number]. IMPRESSION: Pneumothorax resolved. Bibasilar consolidation, considerably more evident than previous exam. Reviewed, Interpreted and Dictated by Regulo Schaeffer MD Transcribed by Charlene Tello Authenticated and [facility]
[2024-05-17 11:19] LABS: Basophils % 0.2 % (0.1-2.0); Hematocrit 35.7 % (42.0-52.0); Hemoglobin 12.1 g/dL (14.1-18.0); Lymphocytes # 0.2 K/mm3 (0.7-4.5); Lymphocytes % 1.5 % (10-50); Mean Corpuscular HGB Conc 33.9 g/dL (31.8-35.4); Mean Corpuscular Hemoglobin 32.4 pg (27.0-31.2); Mean Corpuscular Volume 95.7 fl (80-94); Mean Platelet Volume 9.7 fl (7.4-10.4); Monocytes # 0.6 K/mm3 (0.1-1.0); Monocytes % 5.4 % (1.7-9.3); Neutrophils # 9.5 K/mm3 (1.8-7.8); Neutrophils % 92.5 % (37.0-80.0); Platelet Count 292 K/mm3 (142-424); Red Blood Count 3.73 M/mm3 (4.60-6.20); Red Cell Distribution Width 13.1 % (11.5-17.5); White Blood Count 10.3 K/mm3 (4.8-10.8)
--- NOTE | 2024-05-17 11:26 | PC.NURSE ---
Pt O2 in low 80's on nonrebreather, respiratory notified. Pt placed on vapotherm. Dr Olivares notified and ordered labs and CTA of chest and moved pt to stepdown for closer monitoring. Pt is tachy in 120's and temp is 97.9. MD Lanza notified of pts condition, he suggested suctioning pt. Code status discussed with pt and he stated he would still like to be full code. Report was given from this nurse to VERA Oates.
[2024-05-17 11:30] LABS: MANUAL DIFFERENTIAL MANUAL DIFFERENTIAL (MANUAL DIFF)
[2024-05-17 11:34] LABS: Alanine Aminotransferase 37 U/L (12-78); Alkaline Phosphatase 76 U/L (38-126); Anion Gap 10.6 mEq/L (5-15); Aspartate Amino Transferase 25 U/L (17-59); Bilirubin,Total 0.4 mg/dl (0.2-1.3); Blood Urea Nitrogen 25 mg/dl (9-20); Calcium 9.3 mg/dl (8.4-10.2); Carbon Dioxide 36 mmol/L (22.0-30.0); Chloride 97 mmol/L (98-107); Creatinine Clearance Estimated 49 mL/min (50-200); Estimated Glomerular Filt Rate 111 ml/min (>60); GFR (African American) 135 ML/MIN (>60); Globulin 2.9 g/dL (1.3-3.2); Glucose 137 mg/dl (74-100); Potassium 4.6 mmoL/L (3.5-5.1); Sodium 139 mmol/L (136-145); Total Protein,Serum 5.9 g/dl (6.3-8.2)
[2024-05-17] MEDS: 0.9 % SODIUM CHLORIDE 50 ML VIAL IV (11:35)
[2024-05-17] MEDS: SODIUM CHLORIDE 0.9% 10ML SYR (RAD ONLY) 10 ML IV (11:35)
[2024-05-17] MEDS: IOPAMIDOL-370 (76%);100ML BOTTLE 75 ML IV (11:35)
[2024-05-17 11:40] LABS: D-Dimer 0.94 ug/mL (0.0-0.5)
[2024-05-17 11:59] LABS: Lymphocytes % 7 % (10-50); Monocytes % 6 % (2-9); Neutrophils % 87 % (42-76); Total Cells Counted 100
[2024-05-17 12:00] LABS: Platelet Estimate Normal; RBC Morphology Normal
--- NOTE | 2024-05-17 12:20 | PC.NURSE ---
AT APPROXIMATELY 1130 THIS RN WENT DOWN WITH RADIOLOGY FOR PT TO HAVE A CT OF THE CHEST. PT TOLERATED WELL. PT WAS BROUGHT BACK TO 216 AND PLACED ON TELE, PULSE OX, AND BP MONITORING. LUNG SOUNDS ARE DIMINISHED IN THE RIGHT BASE. CHEST TUBE IS TAPED TO THE FLOOR BELOW THE LEVEL OF THE LUNGS. PT WAS ALSO -PLACED ON VAPOTHERM AT 40LPM AND 100%. FAMILY IS CURRENTLY AT BEDSIDE.
--- NOTE | 2024-05-17 12:44 | PC.NURSE ---
REPORT GIVEN TO Jose Ramon PAL RN AT [id number]
--- NOTE | 2024-05-17 13:00 | PC.NURSE ---
MD MOORE MADE AWARE OF PT STATUS AND ORDER TO TRANSFER PT TO ICU STATUS PER ANNANGI. NO NEW ORDERS FROM [facility].
[2024-05-17 13:44] LABS: ABG Base Excess 10.5 mmol/L (-2.4-2.3); ABG HCO3 34.7 mmhg (22.0-26.0); ABG Oxygen Saturation 91 % (90-100); ABG PH 7.44 mmol/L (7.35-7.45); ABG PO2 61.6 mmhg (80-100); ABG TCO2 36.3 mmhg (23-27); Oxygen 100% %
[2024-05-17 13:45] LABS: ABG PCO2 52.4 mmhg (35.0-45.0); Source R BRACHIAL
[2024-05-17] MEDS: PIPERACILLIN/TAZO 4.5 GM in 0.9 % SODIUM CHLORIDE 100 ML IV ×2 (13:54→19:00)
--- NOTE | 2024-05-17 14:39 | PC.NURSE ---
Addendum entered by Roxi Robertson RN 05/17/24 14:46: MD Lanza notified on pt and family inquiries. Original Note: Pt's family asked about hospice and whether pt could go home. Family and pt also informed and educated on code status.
[2024-05-17] MEDS: ACETAMINOPHEN 325MG TAB 650 MG PO (16:44)
[2024-05-17] MEDS: BUDESONIDE 0.5MG/2ML NEB 0.5 MG IH (18:29)
--- NOTE | 2024-05-17 22:08 | PC.NURSE ---
He is responsive to pain. His family at bedside states he has been sleeping since about 1830. He is unable to take his oral medications. His top dentures removed and place in a denture cup and placed on his bedside table because they were falling down inside of his mouth. He is currently on a vapotherm 30LPM 50% FiO2 and a non-rebreather. Respiratory weaned him from 70% FiO2 on the vapotherm. He is being turned and repositioned q 2 hours. DSG on coccyx changed r/t having purulent drainage on it. He is voiding per justin; urine is dark yellow, clear. He has a family member at the bedside. Right chest tube in place with suction. NSR/Sinus tach on telemetry. 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
[2024-05-18] VITALS (45 sets, daily range): BP systolic 92–115; BP diastolic 45–67; PULSE 64–112; RESP 13–28; TEMP 36.3–36.9; O2SAT 89–100; BMI 15.5
[2024-05-18] MEDS: PIPERACILLIN/TAZO 4.5 GM in 0.9 % SODIUM CHLORIDE 100 ML IV ×4 (00:42→18:23)
[2024-05-18] MEDS: IPRATROPIUM/ALBUTEROL 3 ML NEB IH ×6 (02:41→22:05)
--- NOTE | 2024-05-18 02:46 | PC.NURSE ---
He has awakened at this time. He denies any pain. His speech is clear and he answers questions appropriately. His family member is still at the bedside.
--- NOTE | 2024-05-18 05:47 | PC.NURSE ---
His O2 decreased to 85-86%; respiratory notified and Vapotherm settings changed to 40LPM 80% FiO2.
--- NOTE | 2024-05-18 06:23 | XR_ITS ---
PROCEDURE INFORMATION: Exam: XR Chest Exam date and time: 05/18/2024 6:21 AM Age: 68 years old Clinical indication: Other: Low o2 sats TECHNIQUE: Imaging protocol: Radiologic exam the chest. Views: 1 view. COMPARISON: CT ANGIO CHEST PE PROTOCOL 05/17/2024 11:17 AM FINDINGS: Lungs: COPD changes. Bilateral infiltrates of similar caliber to prior examination. Pleural spaces: Unremarkable. No pleural effusion. No pneumothorax. Heart/Mediastinum: Unremarkable. No cardiomegaly. Bones/joints: Diffuse degenerative change of the visualized osseous structures. IMPRESSION: Similar-appearing bilateral lung infiltrates from prior comparisons.
[2024-05-18] MEDS: BUDESONIDE 0.5MG/2ML NEB 0.5 MG IH ×2 (07:09→18:30)
[2024-05-18 07:27] LABS: POC Glucose,Bedside 177 (70-110)
[2024-05-18] MEDS: PRO-STAT AWC 30ML LIQUID PACKET 30 ML PO ×2 (09:13→20:02)
[2024-05-18] MEDS: GABAPENTIN 600MG TABLET 600 MG PO ×4 (09:13→20:03)
[2024-05-18] MEDS: DEXAMETHASONE 4MG TABLET 4 MG PO ×2 (09:13→20:03)
[2024-05-18] MEDS: diazePAM 5MG TABLET 5 MG PO (09:13)
[2024-05-18] MEDS: MEGESTROL ACETATE 400 MG/10 ML PO (09:14)
[2024-05-18] MEDS: TIOTROPIUM 18MCG/PUFF INHALER 2 CAP IH (10:27)
--- NOTE | 2024-05-18 12:25 | P.PN_ITS ---
Subjective *Date: 05/18/24 *Time: 12:25 Interval history: Somewhat improved this AM. Vapotherm decreased to 25%. More alert. Not eating a lot. Medical Exam Vital signs and Labs for Last 24 Hours: Vital Signs Temp Pulse Pulse Resp BP BP Pulse Ox 05/18/24 11:30 103/51 L 05/18/24 11:30 106 H 19 95 05/18/24 11:00 98/53 L 05/18/24 11:00 107 H 15 92 L 05/18/24 11:00 05/18/24 10:42 95 05/18/24 10:28 105 H 05/18/24 10:28 104 H 05/18/24 10:28 92 L 05/18/24 10:00 106 H 16 102/48 L 92 L 05/18/24 09:30 112 H 23 100/48 L 91 L 05/18/24 09:10 05/18/24 09:00 109 H 19 105/53 L 95 05/18/24 08:30 05/18/24 08:00 107 H 05/18/24 08:00 97.4 F L 108 H 108/57 L 97 05/18/24 07:09 96 H 05/18/24 07:09 98 H 05/18/24 07:09 98 05/18/24 06:56 95 H 92/54 L 96 05/18/24 06:55 97 H 92/54 L 95 05/18/24 06:54 97 H 92/54 L 97 05/18/24 06:12 92 H 15 98/54 L 93 L 05/18/24 06:04 05/18/24 06:00 92 H 98/54 L 92 L 05/18/24 05:12 96 H 17 105/57 L 95 05/18/24 05:00 96 H 20 105/57 L 96 05/18/24 05:00 05/18/24 04:00 64 99/56 L 95 05/18/24 03:44 95 05/18/24 03:44 90 05/18/24 02:44 95 H 05/18/24 02:44 95 H 05/18/24 02:30 05/18/24 02:00 93 H 16 92/50 L 93 L 05/18/24 01:00 95 H 103/53 L 93 L 05/18/24 00:32 01/25/25 00:00 97.7 F 97 H 16 100/56 L 95 05/18/24 00:00 94 L 05/18/24 00:00 100 H 05/17/24 23:00 97 H 17 91/57 L 97 05/17/24 22:36 05/17/24 22:00 98.5 F 100 H 18 100/55 L 93 L 05/17/24 21:26 98 H 05/17/24 21:26 98 H 05/17/24 21:26 96 05/17/24 21:00 05/17/24 21:00 98.7 F 100 H 19 94/49 L 96 05/17/24 20:00 110 H 05/17/24 20:00 96 05/17/24 20:00 99.6 F 107 H 23 100/53 L 93 L 05/17/24 20:00 99.6 F 05/17/24 19:16 94 L 05/17/24 19:00 107 H 24 103/49 L 94 L 05/17/24 18:35 05/17/24 18:32 110 H 05/17/24 18:32 110 H 05/17/24 18:32 92 L 05/17/24 18:00 113 H 25 H 91/51 L 92 L 05/17/24 17:00 115 H 23 107/49 L 92 L 05/17/24 17:00 05/17/24 16:00 114 H 05/17/24 16:00 114 H 110/57 L 93 L 05/17/24 15:59 05/17/24 15:00 05/17/24 15:00 117 H 25 H 106/52 L 92 L 05/17/24 15:00 89 L 05/17/24 14:41 95 05/17/24 14:00 120 H 28 H 102/54 L 96 05/17/24 13:53 120 H 05/17/24 13:53 119 H 05/17/24 13:53 05/17/24 13:30 119 H 25 H 105/48 L 93 L 05/17/24 13:00 05/17/24 13:00 120 H 26 H 109/55 L 91 L 05/17/24 12:30 125 H 30 H 114/53 L 86 L O2 Del Method O2 Flow Rate FiO2 05/18/24 11:30 05/18/24 11:30 Non-Rebreather, Vapotherm 05/18/24 11:00 05/18/24 11:00 Non-Rebreather, Vapotherm 05/18/24 11:00 Non-Rebreather, Vapotherm 05/18/24 10:42 Vapotherm 30 50 05/18/24 10:28 05/18/24 10:28 05/18/24 10:28 Vapotherm 30 50 05/18/24 10:00 05/18/24 09:30 Non-Rebreather, Vapotherm 30 05/18/24 09:10 Non-Rebreather, Vapotherm 05/18/24 09:00 Non-Rebreather, Vapotherm 30 05/18/24 08:30 Non-Rebreather, Vapotherm 05/18/24 08:00 05/18/24 08:00 Non-Rebreather, Vapotherm 30 05/18/24 07:09 05/18/24 07:09 05/18/24 07:09 Vapotherm 30 70 05/18/24 06:56 Non-Rebreather, Vapotherm 05/18/24 06:55 Non-Rebreather, Vapotherm 05/18/24 06:54 Non-Rebreather, Vapotherm 05/18/24 06:12 Non-Rebreather, Vapotherm 05/18/24 06:04 Non-Rebreather, Vapotherm 40 05/18/24 06:00 Non-Rebreather, Vapotherm 05/18/24 05:12 Non-Rebreather, Vapotherm 30 05/18/24 05:00 Vapotherm 30 05/18/24 05:00 Non-Rebreather, Vapotherm 30 05/18/24 04:00 Vapotherm 30 05/18/24 03:44 Non-Rebreather, Vapotherm 30 50 05/18/24 03:44 05/18/24 02:44 05/18/24 02:44 05/18/24 02:30 Non-Rebreather, Vapotherm 30 05/18/24 02:00 Non-Rebreather 05/18/24 01:00 Non-Rebreather 05/18/24 00:32 Non-Rebreather, Vapotherm 30 05/18/24 00:00 Non-Rebreather 05/18/24 00:00 Simple Mask, Vapotherm 30 50 05/18/24 00:00 05/17/24 23:00 Non-Rebreather, Vapotherm 05/17/24 22:36 Non-Rebreather, Vapotherm 30 05/17/24 22:00 Non-Rebreather, Vapotherm 05/17/24 21:26 05/17/24 21:26 05/17/24 21:26 Non-Rebreather, Vapotherm 30 50 05/17/24 21:00 Non-Rebreather, Vapotherm 30 05/17/24 21:00 Non-Rebreather, Vapotherm 05/17/24 20:00 05/17/24 20:00 Non-Rebreather, Vapotherm 30 70 05/17/24 20:00 Non-Rebreather, Vapotherm 30 05/17/24 20:00 05/17/24 19:16 Non-Rebreather, Vapotherm 30 70 05/17/24 19:00 Non-Rebreather, Vapotherm 05/17/24 18:35 Non-Rebreather, Vapotherm 05/17/24 18:32 05/17/24 18:32 05/17/24 18:32 Vapotherm 30 80 05/17/24 18:00 Non-Rebreather, Vapotherm 05/17/24 17:00 Non-Rebreather, Vapotherm 05/17/24 17:00 Room Air 05/17/24 16:00 05/17/24 16:00 Non-Rebreather, Vapotherm 05/17/24 15:59 Non-Rebreather, Vapotherm 05/17/24 15:00 Non-Rebreather, Vapotherm 30 05/17/24 15:00 Non-Rebreather, Vapotherm 30 05/17/24 15:00 Vapotherm 30 60 05/17/24 14:41 Vapotherm 30 60 05/17/24 14:00 Non-Rebreather, Vapotherm 30 05/17/24 13:53 05/17/24 13:53 05/17/24 13:53 Non-Rebreather, Vapotherm 40 100 05/17/24 13:30 Non-Rebreather, Vapotherm 30 05/17/24 13:00 Non-Rebreather, Vapotherm 05/17/24 13:00 Non-Rebreather, Vapotherm 30 90 05/17/24 12:30 Vapotherm 40 100 Intake and Output 05/18/24 05/18/24 05/18/24 03:59 11:59 19:59 Intake Total 100 / 580 210 / 580 Output Total 660 / 850 Balance 100 / -270 -450 / -270 Intake: Intake, Oral Amount 210 / 480 Intake, Total IV Amount 100 / 100 Piperacillin/Tazo 4.5 gm In 0.9 100 / 100 % Sodium Chloride 100 ml @ 200 mls/hr IV Q6H [facility] Rx#:[id number] Output: Output, Urine Amount 650 / 750 Output, Chest Tube Drainage 10 / 100 Amount Right 10 / 100 Other: Number of Unmeasured Voids 0 0 Weight 114 lb 9.6 oz Laboratory Results - last 24 hr 05/17/24 10:46: Specimen Source R brachial, O2 % 100%, ABG pH 7.44, ABG pCO2 52.4 H, ABG pO2 61.6 L, ABG HCO3 34.7 H, ABG Total CO2 36.3 H, ABG O2 Saturation 91, ABG Base Excess 10.5 H 05/17/24 20:43: POC Glucose 177 H I & O for Labs for Last 24 Hours: Intake & Output 05/16/24 05/17/24 05/18/24 05/19/24 11:59 11:59 11:59 11:59 Intake Total 910 / 910 1120 / 1120 580 / 580 Output Total 2350 / 2350 1588 / 1588 850 / 850 Balance -1440 / -1440 -468 / -468 -270 / -270 Weight 108 lb 4.8 oz 111 lb 4.8 oz 114 lb 9.6 oz Microbiology Reports for the Last 24 Hours: Microbiology 05/13/24 11:31 Thoracic Fluid Gram Stain - Final 05/13/24 11:31 Thoracic Fluid Body Fluid Culture - Preliminary NO GROWTH AFTER 5 DAYS 05/13/24 09:20 Sputum - Expectorated Sputum Sputum Culture - Preliminary 05/12/24 07:08 Blood Blood Culture - Final NO GROWTH AFTER 5 DAYS 05/12/24 07:07 Blood Blood Culture - Final NO GROWTH AFTER 5 DAYS Head: Present normocephalic Eyes: Present as per HPI ENT: Present mucous membranes dry (perhaps some yeast) Neck: Present normal inspection Respiratory: Absent CTA bilaterally (moving air bilaterally) or respiratory distress Cardiac: Present Reg Rate and Rhythm (HR has decreased from 120 to 102) GI: Present soft; Absent tenderness Rectal (male): Present deferred (male): Present deferred Extremities: Absent edema Skin: Present lesions (sacral ulcer with granulation tissue) Neuro: Present alert, awake and oriented x 3 Assessment and Plan *Assessment and plan (1) Malignant pleural effusion: Status: Acute Category: Medical Code(s): J91.0 - Malignant pleural effusion (2) Chest tube in place: Status: Acute Category: Medical Code(s): Z96.89 - Presence of other specified functional implants (3) Acute hypoxemic respiratory failure: Status: Acute Category: Medical Code(s): J96.01 - Acute respiratory failure with hypoxia (4) Pleural effusion on right: Status: Acute Category: Medical Code(s): J90 - Pleural effusion, not elsewhere classified (5) Primary lung cancer: Status: Acute Category: Medical Code(s): C34.90 - Malignant neoplasm of unspecified part of unspecified bronchus or lung (6) Pneumonia: Status: Acute Category: Medical Code(s): J18.9 - Pneumonia, unspecified organism (7) Severe protein-calorie malnutrition: Status: Acute Category: Medical Code(s): E43 - Unspecified severe protein-calorie malnutrition (8) Severe muscle deconditioning: Status: Acute Category: Medical Code(s): R29.898 - Other symptoms and signs involving the musculoskeletal system (9) Malignant neoplasm of right upper lobe of lung: Status: Acute Category: Medical Code(s): C34.11 - Malignant neoplasm of upper lobe, right bronchus or lung (10) COPD mixed type: Status: Chronic Category: Medical Code(s): J44.9 - Chronic obstructive pulmonary disease, unspecified (11) Smoking greater than 30 pack years: Status: Chronic Category: Social Hx Code(s): F17.210 - Nicotine dependence, cigarettes, uncomplicated Plan Note change in antibiotics. Continue respiratory support.
--- NOTE | 2024-05-18 18:53 | PC.NURSE ---
Patient weaned to 20 L 35 % and non rebreather. Patient turned q 2, patch changed on coccyx. Lung sounds expiratory rhonchi.
[2024-05-18] MEDS: OLANZapine 5 MG ODT TABLET SL (20:03)
[2024-05-19] VITALS (45 sets, daily range): BP systolic 90–125; BP diastolic 41–61; PULSE 91–117; RESP 15–27; TEMP 36.4–37.2; O2SAT 86–98; BMI 15.2
[2024-05-19] MEDS: PIPERACILLIN/TAZO 4.5 GM in 0.9 % SODIUM CHLORIDE 100 ML IV ×4 (00:24→18:06)
[2024-05-19] MEDS: IPRATROPIUM/ALBUTEROL 3 ML NEB IH ×6 (02:00→21:44)
--- NOTE | 2024-05-19 05:51 | PC.NURSE ---
Pt rested majority of the shift. Vapotherm settings changed per RT multiple times this shift d/t o2 sats <90%. Current settings 20L, 40% fio2. NRB remains on as well. Chest tube remains in place, no crepitus noted. CHest tube is draining cloudy, yellow fluid. Pt has been a q2h turn, coccyx dressing from day shift remains in place. Pt received a bed bath and linen change this shift.
[2024-05-19] MEDS: BUDESONIDE 0.5MG/2ML NEB 0.5 MG IH ×2 (07:18→18:43)
[2024-05-19] MEDS: TIOTROPIUM 18MCG/PUFF INHALER 2 CAP IH (07:19)
[2024-05-19] MEDS: GABAPENTIN 600MG TABLET 600 MG PO ×4 (08:17→21:09)
[2024-05-19] MEDS: DEXAMETHASONE 4MG TABLET 4 MG PO ×2 (08:17→21:08)
[2024-05-19] MEDS: PRO-STAT AWC 30ML LIQUID PACKET 30 ML PO ×2 (08:17→21:08)
[2024-05-19] MEDS: MEGESTROL ACETATE 400 MG/10 ML PO (08:24)
[2024-05-19] MEDS: SODIUM CHLORIDE 0.45 % 1,000 ML 125 ML IV ×2 (11:11→23:06)
--- NOTE | 2024-05-19 13:20 | EXP.ACUTE.PN ---
Subjective *Date: 05/19/24 *Time: 13:20 Interval history: He is showing improvement. O2 sat is satisfactory on nasal cannula. BP's have been low, thus I ordered D5 0.45% NaCl at 125ml/hr. Labwork pending. He obviously feels better today. Medical Exam Vital signs and Labs for Last 24 Hours: Vital Signs Temp Pulse Resp BP Pulse Ox O2 Del Method O2 Flow Rate 05/19/24 13:15 Nasal Cannula 6 05/19/24 12:00 103 H 05/19/24 12:00 Nasal Cannula 6 05/19/24 12:00 98.9 F 104 H 21 99/50 L 94 L 05/19/24 11:30 103 H 27 H 100/43 L 96 05/19/24 11:24 101 H 05/19/24 11:24 100 H 05/19/24 11:24 93 L Nasal Cannula 6 05/19/24 11:05 Nasal Cannula 6 05/19/24 11:00 96 H 20 96/44 L 93 L 05/19/24 10:30 99 H 22 98/48 L 90 L 05/19/24 10:00 99 H 19 102/49 L 94 L 05/19/24 09:30 103 H 26 H 105/48 L 93 L 05/19/24 09:00 107 H 23 108/48 L 93 L 05/19/24 09:00 Nasal Cannula 6 05/19/24 08:30 115 H 22 114/57 L 91 L 05/19/24 08:13 90 L Vapotherm 20 05/19/24 08:01 108/51 L 05/19/24 08:01 97.8 F 111 H 20 108/51 L 93 L 05/19/24 08:00 117 H 05/19/24 08:00 Nasal Cannula 6 05/19/24 08:00 112 H 18 92 L 05/19/24 07:30 116 H 101/57 L 89 L 05/19/24 07:20 99 H 05/19/24 07:20 98 H 05/19/24 07:20 97 Vapotherm 20 05/19/24 07:06 98 H 20 104/48 L 96 Non-Rebreather 05/19/24 07:00 96 H 104/48 L 98 05/19/24 06:55 Non-Rebreather, Vapotherm 05/19/24 06:30 100 H 104/49 L 94 L 05/19/24 06:00 107/50 L 05/19/24 06:00 103 H 86 L 05/19/24 05:30 90/45 L 05/19/24 05:30 93 H 96 05/19/24 05:00 94 H 96 05/19/24 05:00 101/41 L 05/19/24 05:00 Non-Rebreather, Vapotherm 05/19/24 05:00 92 H 20 101/41 L 96 Non-Rebreather 05/19/24 04:41 98.5 F 05/19/24 04:30 97/47 L 05/19/24 04:30 96 H 97 05/19/24 04:00 102 H 97 05/19/24 04:00 118/59 L 05/19/24 04:00 100 H 05/19/24 04:00 98 H 18 118/59 L 97 Non-Rebreather, Vapotherm 05/19/24 04:00 97 Nasal Cannula, Vapotherm 20 05/19/24 03:30 100/51 L 05/19/24 03:30 94 H 17 97 05/19/24 03:00 94/49 L 05/19/24 03:00 98 H 15 97 05/19/24 03:00 Non-Rebreather, Vapotherm 05/19/24 03:00 98 H 21 94/49 L 97 Non-Rebreather 05/19/24 02:30 104/54 L 05/19/24 02:30 98 H 20 98 05/19/24 02:15 97 H 05/19/24 02:00 90/47 L 05/19/24 02:00 94 H 17 96 05/19/24 02:00 98 H 05/19/24 02:00 97 H 16 90/47 L 97 Non-Rebreather 05/19/24 01:30 95/47 L 05/19/24 01:30 91 H 18 98 05/19/24 01:00 Non-Rebreather, Vapotherm 05/19/24 01:00 104/47 L 05/19/24 01:00 93 H 22 96 05/19/24 00:30 107/55 L 05/19/24 00:30 91 H 16 94 L 05/19/24 00:00 93 H 05/19/24 00:00 98.3 F 05/19/24 00:00 94 H 17 96 05/19/24 00:00 95/52 L 05/18/24 23:30 102/56 L 05/18/24 23:30 94 H 17 94 L 05/18/24 23:00 103/52 L 05/18/24 23:00 97 H 19 94 L 05/18/24 23:00 Non-Rebreather, Vapotherm 05/18/24 23:00 97 H 20 103/52 L 94 L Nasal Cannula 05/18/24 22:30 115/62 05/18/24 22:30 99 H 96 05/18/24 22:28 Vapotherm 20 05/18/24 22:15 101 H 05/18/24 22:00 100 H 05/18/24 22:00 101 H 20 103/53 L 91 L Non-Rebreather, Vapotherm 05/18/24 22:00 103/53 L 05/18/24 22:00 96 H 21 89 L 05/18/24 21:30 112/59 L 05/18/24 21:30 99 H 21 90 L 05/18/24 21:00 105/54 L 05/18/24 21:00 99 H 25 H 93 L 05/18/24 21:00 Non-Rebreather, Vapotherm 20 05/18/24 20:30 108/54 L 05/18/24 20:30 105 H 13 91 L 05/18/24 20:10 20 05/18/24 20:00 93/46 L 05/18/24 20:00 100 H 22 100 05/18/24 20:00 93 L Non-Rebreather, Vapotherm 20 05/18/24 20:00 98.5 F 102 H 21 108/54 L 95 Non-Rebreather 05/18/24 20:00 100 H 05/18/24 19:30 93/45 L 05/18/24 19:30 19 05/18/24 19:00 94/47 L 05/18/24 19:00 105 H 25 H 100 Non-Rebreather, Vapotherm 05/18/24 18:45 105 H 05/18/24 18:43 Room Air 05/18/24 18:30 24 Non-Rebreather, Vapotherm 05/18/24 18:30 106/58 L 05/18/24 18:12 103 H 05/18/24 18:00 102/55 L 05/18/24 18:00 104 H 27 H 95 Non-Rebreather, Vapotherm 05/18/24 17:01 105 H 28 H 91 L Non-Rebreather, Vapotherm 20 05/18/24 17:00 Non-Rebreather, Vapotherm 05/18/24 16:00 Non-Rebreather, Vapotherm 05/18/24 16:00 105 H 23 110/58 L 93 L Non-Rebreather, Vapotherm 20 05/18/24 15:00 Non-Rebreather, Vapotherm 05/18/24 15:00 109 H 25 H 113/67 94 L Non-Rebreather, Vapotherm 25 05/18/24 14:50 106 H 05/18/24 14:50 102 H 05/18/24 14:50 93 L Vapotherm 25 05/18/24 14:00 109 H 24 99/51 L 92 L Non-Rebreather, Vapotherm 25 FiO2 05/19/24 13:15 05/19/24 12:00 05/19/24 12:00 05/19/24 12:00 05/19/24 11:30 05/19/24 11:24 05/19/24 11:24 05/19/24 11:24 05/19/24 11:05 05/19/24 11:00 05/19/24 10:30 05/19/24 10:00 05/19/24 09:30 05/19/24 09:00 05/19/24 09:00 05/19/24 08:30 05/19/24 08:13 40 05/19/24 08:01 05/19/24 08:01 05/19/24 08:00 05/19/24 08:00 05/19/24 08:00 05/19/24 07:30 05/19/24 07:20 05/19/24 07:20 05/19/24 07:20 40 05/19/24 07:06 05/19/24 07:00 05/19/24 06:55 05/19/24 06:30 05/19/24 06:00 05/19/24 06:00 05/19/24 05:30 05/19/24 05:30 05/19/24 05:00 05/19/24 05:00 05/19/24 05:00 05/19/24 05:00 05/19/24 04:41 05/19/24 04:30 05/19/24 04:30 05/19/24 04:00 05/19/24 04:00 05/19/24 04:00 05/19/24 04:00 05/19/24 04:00 40 05/19/24 03:30 05/19/24 03:30 05/19/24 03:00 05/19/24 03:00 05/19/24 03:00 05/19/24 03:00 05/19/24 02:30 05/19/24 02:30 05/19/24 02:15 05/19/24 02:00 05/19/24 02:00 05/19/24 02:00 05/19/24 02:00 05/19/24 01:30 05/19/24 01:30 05/19/24 01:00 05/19/24 01:00 05/19/24 01:00 05/19/24 00:30 05/19/24 00:30 05/19/24 00:00 05/19/24 00:00 05/19/24 00:00 05/19/24 00:00 05/18/24 23:30 05/18/24 23:30 05/18/24 23:00 05/18/24 23:00 05/18/24 23:00 05/18/24 23:00 05/18/24 22:30 05/18/24 22:30 05/18/24 22:28 45 05/18/24 22:15 05/18/24 22:00 05/18/24 22:00 05/18/24 22:00 05/18/24 22:00 05/18/24 21:30 05/18/24 21:30 05/18/24 21:00 05/18/24 21:00 05/18/24 21:00 05/18/24 20:30 05/18/24 20:30 05/18/24 20:10 35 05/18/24 20:00 05/18/24 20:00 05/18/24 20:00 35 05/18/24 20:00 05/18/24 20:00 05/18/24 19:30 05/18/24 19:30 05/18/24 19:00 05/18/24 19:00 05/18/24 18:45 05/18/24 18:43 05/18/24 18:30 05/18/24 18:30 05/18/24 18:12 05/18/24 18:00 05/18/24 18:00 05/18/24 17:01 05/18/24 17:00 05/18/24 16:00 05/18/24 16:00 05/18/24 15:00 05/18/24 15:00 05/18/24 14:50 05/18/24 14:50 05/18/24 14:50 40 05/18/24 14:00 Intake and Output 05/19/24 05/19/24 05/19/24 03:59 11:59 19:59 Intake Total 200 / 830 240 / 830 Output Total 800 / 1050 Balance 200 / -220 -560 / -220 Intake: Intake, Oral Amount 240 / 630 Intake, Total IV Amount 200 / 200 Piperacillin/Tazo 4.5 gm In 0.9 200 / 200 % Sodium Chloride 100 ml @ 200 mls/hr IV Q6H COUNT [facility] Rx#:[id number] Output: Output, Urine Amount 800 / 1050 Other: Number of Unmeasured Voids 0 Weight 112 lb 4.8 oz I & O for Labs for Last 24 Hours: Intake & Output 05/17/24 05/18/24 05/19/24 05/20/24 11:59 11:59 11:59 11:59 Intake Total 1120 / 1120 580 / 580 830 / 830 Output Total 1588 / 1588 850 / 850 1050 / 1050 Balance -468 / -468 -270 / -270 -220 / -220 Weight 111 lb 4.8 oz 114 lb 9.6 oz 112 lb 4.8 oz Microbiology Reports for the Last 24 Hours: Microbiology 05/13/24 09:20 Sputum - Expectorated Sputum Gram Stain - Final 05/13/24 09:20 Sputum - Expectorated Sputum Sputum Culture - Preliminary 05/13/24 11:31 Thoracic Fluid Gram Stain - Final 05/13/24 11:31 Thoracic Fluid Body Fluid Culture - Final NO GROWTH AFTER 5 DAYS Head: Present normocephalic Eyes: Present as per HPI Neck: Present normal inspection Respiratory: Present normal respiratory effort (air movement bilaterally) and able to speak in complete sentences; Absent respiratory distress Cardiac: Present Reg Rate and Rhythm (rate at 100. BPs 90's/60's) GI: Present soft; Absent distention, tenderness, guarding, rebound or rigidity Rectal (male): Present deferred (male): Present deferred Extremities: Absent edema Skin: Present intact (except sacral decubitus) Neuro: Present alert and oriented x 3 Assessment and Plan *Assessment and plan (1) Malignant pleural effusion: Status: Acute Category: Medical Code(s): J91.0 - Malignant pleural effusion (2) Chest tube in place: Status: Acute Category: Medical Code(s): Z96.89 - Presence of other specified functional implants (3) Pneumonia: Status: Acute Category: Medical Code(s): J18.9 - Pneumonia, unspecified organism (4) Acute hypoxemic respiratory failure: Status: Acute Category: Medical Code(s): J96.01 - Acute respiratory failure with hypoxia (5) Pleural effusion on right: Status: Acute Category: Medical Code(s): J90 - Pleural effusion, not elsewhere classified (6) Primary lung cancer: Status: Acute Category: Medical Code(s): C34.90 - Malignant neoplasm of unspecified part of unspecified bronchus or lung (7) Glaucoma of right eye: Status: Acute Category: Medical Code(s): H40.9 - Unspecified glaucoma (8) Severe protein-calorie malnutrition: Status: Acute Category: Medical Code(s): E43 - Unspecified severe protein-calorie malnutrition (9) Severe muscle deconditioning: Status: Acute Category: Medical Code(s): R29.898 - Other symptoms and signs involving the musculoskeletal system (10) Malignant neoplasm of right upper lobe of lung: Status: Acute Category: Medical Code(s): C34.11 - Malignant neoplasm of upper lobe, right bronchus or lung (11) COPD mixed type: Status: Chronic Category: Medical Code(s): J44.9 - Chronic obstructive pulmonary disease, unspecified Plan IV fluids. See orders.
[2024-05-19 13:30] LABS: Basophils % 0.3 % (0.1-2.0); Hemoglobin 11.8 g/dL (14.1-18.0); Lymphocytes # 0.2 K/mm3 (0.7-4.5); Lymphocytes % 2.1 % (10-50); Mean Corpuscular HGB Conc 32.8 g/dL (31.8-35.4); Mean Corpuscular Hemoglobin 31.6 pg (27.0-31.2); Mean Corpuscular Volume 96.3 fl (80-94); Mean Platelet Volume 10.3 fl (7.4-10.4); Monocytes # 0.5 K/mm3 (0.1-1.0); Monocytes % 4.7 % (1.7-9.3); Neutrophils # 10.3 K/mm3 (1.8-7.8); Neutrophils % 92.3 % (37.0-80.0); Platelet Count 267 K/mm3 (142-424); Red Blood Count 3.74 M/mm3 (4.60-6.20); Red Cell Distribution Width 13.3 % (11.5-17.5); White Blood Count 11.1 K/mm3 (4.8-10.8)
[2024-05-19 13:33] LABS: MANUAL DIFFERENTIAL MANUAL DIFFERENTIAL (MANUAL DIFF)
[2024-05-19 13:46] LABS: Chloride 99 mmol/L (98-107); Potassium 4.3 mmoL/L (3.5-5.1); Sodium 137 mmol/L (136-145)
[2024-05-19 13:49] LABS: Anion Gap 9.3 mEq/L (5-15); Blood Urea Nitrogen 36 mg/dl (9-20); Calcium 8.7 mg/dl (8.4-10.2); Carbon Dioxide 33 mmol/L (22.0-30.0); Creatinine Clearance Estimated 50 mL/min (50-200); Estimated Glomerular Filt Rate 133 ml/min (>60); GFR (African American) 161 ML/MIN (>60); Glucose 130 mg/dl (74-100)
[2024-05-19 14:14] LABS: Lymphocytes % 3 % (10-50); Monocytes % 1 % (2-9); Neutrophils % 96 % (42-76); Platelet Estimate Normal; RBC Morphology Normal; Total Cells Counted 100
--- NOTE | 2024-05-19 15:03 | PC.NURSE ---
Patient weaned to 6LNC and tolerating well with oxygen saturations 91-93%. Lung sounds diminished. Turned q2. Chest tube in place on right side, hooked up to suction.
--- NOTE | 2024-05-19 18:05 | DIET.NUTRFU ---
Pt showing improvement per MD progress note. PO intake has fluctuated during admission but with improvement at last two meals. Last two meals recorded at 50%. Pt receiving milkshakes TID. Will speak to pt about supplement acceptance and determine if a switch would be beneficial.
--- NOTE | 2024-05-19 19:00 | PC.NURSE ---
Received pt to this floor around 1550. Pt on 6L NC. Tolerating well. Chest tube to suction at 20 cm. DSG assessed and C/D/I. Medication administered per jun. Family at bedside. Call light within reach.
--- NOTE | 2024-05-19 20:10 | PC.NURSE ---
pt weaned to 5.5L NC
[2024-05-19] MEDS: OLANZapine 5 MG ODT TABLET SL (21:09)
[2024-05-20] VITALS (19 sets, daily range): BP systolic 112–136; BP diastolic 54–72; PULSE 84–112; RESP 16–22; TEMP 36.4–36.7; O2SAT 91–98; BMI 15.1
[2024-05-20] MEDS: PIPERACILLIN/TAZO 4.5 GM in 0.9 % SODIUM CHLORIDE 100 ML IV ×4 (01:54→17:57)
[2024-05-20] MEDS: IPRATROPIUM/ALBUTEROL 3 ML NEB IH ×6 (02:04→21:34)
--- NOTE | 2024-05-20 03:51 | PC.NURSE ---
0230 pt was weaned to 5L NC. 0350- pt was weaned to 4.5L NC
--- NOTE | 2024-05-20 03:52 | PC.NURSE ---
pt refused bath
--- NOTE | 2024-05-20 05:44 | PC.NURSE ---
pt weaned to 4L NC
--- NOTE | 2024-05-20 06:00 | XR_ITS ---
PROCEDURE INFORMATION: Exam: XR Chest Exam date and time: 05/20/2024 6:00 AM Age: 68 years old Clinical indication: Other: Pnepneumonia; Additional info: Pnm TECHNIQUE: Imaging protocol: Radiologic exam of the chest. Views: 1 view. COMPARISON: CR XR CHEST PORTABLE 05/18/2024 6:21 AM FINDINGS: Lungs: Patchy diffuse bilateral airspace opacities more prominent on the left, unchanged from prior study. Hyperinflation with underlying COPD. Pleural spaces: Unremarkable. No pleural effusion. No pneumothorax. Heart/Mediastinum: Unremarkable. No cardiomegaly. Bones/joints: Unremarkable. IMPRESSION: Stable bilateral airspace infiltrates.
[2024-05-20] MEDS: BUDESONIDE 0.5MG/2ML NEB 0.5 MG IH ×2 (06:06→18:34)
--- NOTE | 2024-05-20 07:00 | PC.NURSE ---
Pt weaned to 3.5L NC
[2024-05-20] MEDS: SODIUM CHLORIDE 0.45 % 1,000 ML 125 ML IV (08:04)
--- NOTE | 2024-05-20 08:16 | P.PN_ITS ---
Subjective *Date: 05/20/24 *Time: 08:16 Interval history: Patient states he definitely feels better today. He is wondering if he can go home today. He is eating better and enjoying. He has minimal cough. He has a pure wick in place and has had an adequate urinary output. Bowels have not moved. He has not been out of bed O2 sats in the 90s with O2 per nasal cannula at 3-1/2 L/min. Chest tube in place on the right and connected to suction. Blood pressure has been stable. He is taking p.o. fluids well today. Medical Exam Vital signs and Labs for Last 24 Hours: Vital Signs Temp Pulse Pulse Resp BP BP Pulse Ox 05/20/24 07:00 05/20/24 06:07 96 H 05/20/24 06:07 104 H 05/20/24 06:07 98 05/20/24 06:00 84 20 118/64 94 L 05/20/24 05:00 05/20/24 04:00 96 H 05/20/24 04:00 96 H 20 122/62 95 05/20/24 04:00 05/20/24 04:00 97.5 F L 05/20/24 03:00 05/20/24 02:44 97 H 05/20/24 02:44 93 H 05/20/24 02:00 96 H 22 115/62 96 05/20/24 01:00 05/20/24 00:52 98.1 F 05/20/24 00:00 98 H 05/20/24 00:00 98 H 20 112/63 95 05/19/24 23:00 05/19/24 22:27 100 H 05/19/24 22:26 98 H 05/19/24 22:00 103 H 24 123/60 98 05/19/24 21:00 05/19/24 20:21 97.6 F 05/19/24 20:00 101 H 05/19/24 20:00 05/19/24 20:00 101 H 26 H 115/61 96 05/19/24 19:18 05/19/24 19:18 99 H 05/19/24 18:54 05/19/24 18:45 101 H 05/19/24 18:00 106 H 22 109/57 L 96 05/19/24 17:00 05/19/24 16:00 05/19/24 16:00 111 H 05/19/24 15:58 113 H 22 125/60 92 L 05/19/24 14:50 05/19/24 14:36 104 H 05/19/24 14:36 116 H 05/19/24 14:36 94 L 05/19/24 14:00 117/54 L 05/19/24 14:00 100 H 24 93 L 05/19/24 13:15 05/19/24 13:00 103 H 25 H 94 L 05/19/24 13:00 100/50 L 05/19/24 12:00 103 H 05/19/24 12:00 05/19/24 12:00 98.9 F 104 H 21 99/50 L 94 L 05/19/24 11:30 103 H 27 H 100/43 L 96 05/19/24 11:24 101 H 05/19/24 11:24 100 H 05/19/24 11:24 93 L 05/19/24 11:05 05/19/24 11:00 96 H 20 96/44 L 93 L 05/19/24 10:30 99 H 22 98/48 L 90 L 05/19/24 10:00 99 H 19 102/49 L 94 L 05/19/24 09:30 103 H 26 H 105/48 L 93 L 05/19/24 09:00 107 H 23 108/48 L 93 L 05/19/24 09:00 05/19/24 08:30 115 H 22 114/57 L 91 L O2 Del Method O2 Flow Rate 05/20/24 07:00 Nasal Cannula 3.5 05/20/24 06:07 05/20/24 06:07 05/20/24 06:07 Nasal Cannula 4 05/20/24 06:00 Nasal Cannula 4 05/20/24 05:00 Nasal Cannula 4.5 05/20/24 04:00 05/20/24 04:00 Nasal Cannula 4.5 05/20/24 04:00 Nasal Cannula 4.5 05/20/24 04:00 05/20/24 03:00 Nasal Cannula 5 05/20/24 02:44 05/20/24 02:44 05/20/24 02:00 Nasal Cannula 5.5 05/20/24 01:00 Nasal Cannula 5.5 05/20/24 00:52 05/20/24 00:00 05/20/24 00:00 Nasal Cannula 5.5 05/19/24 23:00 Nasal Cannula 5.5 05/19/24 22:27 05/19/24 22:26 05/19/24 22:00 Nasal Cannula 5.5 05/19/24 21:00 Nasal Cannula 5.5 05/19/24 20:21 05/19/24 20:00 05/19/24 20:00 Nasal Cannula 6 05/19/24 20:00 Nasal Cannula 6 05/19/24 19:18 Nasal Cannula 6 05/19/24 19:18 05/19/24 18:54 Nasal Cannula 6 05/19/24 18:45 05/19/24 18:00 Nasal Cannula 6 05/19/24 17:00 Nasal Cannula 6 05/19/24 16:00 Nasal Cannula 6 05/19/24 16:00 05/19/24 15:58 Nasal Cannula 6 05/19/24 14:50 Nasal Cannula 6 05/19/24 14:36 05/19/24 14:36 05/19/24 14:36 Nasal Cannula 6 05/19/24 14:00 05/19/24 14:00 Nasal Cannula 6 05/19/24 13:15 Nasal Cannula 6 05/19/24 13:00 Nasal Cannula 6 05/19/24 13:00 05/19/24 12:00 05/19/24 12:00 Nasal Cannula 6 05/19/24 12:00 05/19/24 11:30 05/19/24 11:24 05/19/24 11:24 05/19/24 11:24 Nasal Cannula 6 05/19/24 11:05 Nasal Cannula 6 05/19/24 11:00 05/19/24 10:30 05/19/24 10:00 05/19/24 09:30 05/19/24 09:00 05/19/24 09:00 Nasal Cannula 6 05/19/24 08:30 Intake and Output 05/19/24 05/20/24 05/20/24 19:59 03:59 11:59 Intake Total 600 / 600 1123 / 1723 513 / 2236 Output Total 1470 / 1470 600 / 2070 Balance 600 / 600 -347 / 253 -87 / 166 Intake: Intake, Oral Amount 600 / 600 Intake, Total IV Amount 1123 / 1123 513 / 1636 Piperacillin/Tazo 4.5 gm In 0.9 200 / 200 % Sodium Chloride 100 ml @ 200 mls/hr IV Q6H R[facility] Rx#:[id number] Sodium Chloride 0.45 % 1,000 ml 923 / 923 513 / 1436 @ 125 mls/hr IV .Q8H RENO Rx#: [id number] Output: Output, Urine Amount 1400 / 1400 600 / 2000 Output, Chest Tube Drainage 70 / 70 Amount Right 70 / 70 Other: Number of Unmeasured Voids 0 0 0 Weight 112 lb 1.6 oz Patient Weight 05/20/24 11:59 Weight 112 lb 1.6 oz Laboratory Results - last 24 hr 05/19/24 13:18: WBC 11.1 H, RBC 3.74 L, Hgb 11.8 L, Hct 36.0 L, MCV 96.3 H, MCH 31.6 H, MCHC 32.8, RDW 13.3, Plt Count 267, MPV 10.3, Neut % (Auto) 92.3 H, Lymph % (Auto) 2.1 L, [place] % (Auto) 4.7, Eos % (Auto) 0.0 L, Baso % (Auto) 0.3, Neut # (Auto) 10.3 H, Lymph # (Auto) 0.2 L, [place] # (Auto) 0.5, Eos # (Auto) 0.0, Baso # (Auto) 0.0, Total Counted 100, Neutrophils % (Manual) 96 H, Lymphocytes % (Manual) 3 L, Monocytes % (Manual) 1 L, Platelet Estimate Normal, RBC Morphology Normal, Sodium 137, Potassium 4.3, Chloride 99, Carbon Dioxide 33 H, Anion Gap 9.3, BUN 36 H D, Creatinine 0.60 L, Estimated Creat Clear 50, Estimated GFR 133, Est GFR ( Amer) 161, Glucose 130 H, Calcium 8.7 I & O for Labs for Last 24 Hours: Intake & Output 05/17/24 05/18/24 05/19/24 05/20/24 11:59 11:59 11:59 11:59 Intake Total 1120 / 1120 580 / 580 830 / 830 2236 / 2236 Output Total 1588 / 1588 850 / 850 1050 / 1050 2070 / 2070 Balance -468 / -468 -270 / -270 -220 / -220 166 / 166 Weight 111 lb 4.8 oz 114 lb 9.6 oz 112 lb 4.8 oz 112 lb 1.6 oz Microbiology Reports for the Last 24 Hours: Microbiology 05/13/24 09:20 Sputum - Expectorated Sputum Gram Stain - Final 05/13/24 09:20 Sputum - Expectorated Sputum Sputum Culture - Preliminary 05/13/24 11:31 Thoracic Fluid Gram Stain - Final 05/13/24 11:31 Thoracic Fluid Body Fluid Culture - Final NO GROWTH AFTER 5 DAYS Constitutional: Present no acute distress and thin Comment:: Patient sitting up in the bed and completing his breakfast. He appears most comfortable and is not dyspneic Respiratory: Present rhonchi (Bilateral scattered rhonchi. Breath sounds are good posteriorly. No wheezing.) Comment:: Right chest tube to low suction. Cardiac: Present Reg Rate and Rhythm GI: Present soft and normal bowel sounds; Absent distention Extremities: Absent edema or calf tenderness Neuro: Present alert, awake, oriented x 3 and moves all extremities Assessment and Plan *Assessment and plan (1) Malignant pleural effusion: Status: Acute Category: Medical Code(s): J91.0 - Malignant pleural effusion (2) Chest tube in place: Status: Acute Category: Medical Code(s): Z96.89 - Presence of other specified functional implants (3) Pneumonia: Status: Acute Category: Medical Code(s): J18.9 - Pneumonia, unspecified organism (4) Acute hypoxemic respiratory failure: Status: Acute Category: Medical Code(s): J96.01 - Acute respiratory failure with hypoxia (5) Pleural effusion on right: Status: Acute Category: Medical Code(s): J90 - Pleural effusion, not elsewhere classified (6) Primary lung cancer: Status: Acute Category: Medical Code(s): C34.90 - Malignant neoplasm of unspecified part of unspecified bronchus or lung (7) Glaucoma of right eye: Status: Acute Category: Medical Code(s): H40.9 - Unspecified glaucoma (8) Severe protein-calorie malnutrition: Status: Acute Category: Medical Code(s): E43 - Unspecified severe protein-calorie malnutrition (9) Severe muscle deconditioning: Status: Acute Category: Medical Code(s): R29.898 - Other symptoms and signs involving the musculoskeletal system (10) Malignant neoplasm of right upper lobe of lung: Status: Acute Category: Medical Code(s): C34.11 - Malignant neoplasm of upper lobe, right bronchus or lung (11) COPD mixed type: Status: Chronic Category: Medical Code(s): J44.9 - Chronic obstructive pulmonary disease, unspecified Plan Decrease IV fluids to 75 an hour. Repeat labs. Patient continues to be followed by pulmonology. Continue with antibiotics, neb treatments, and steroids. Physical therapy consult
--- NOTE | 2024-05-20 08:17 | PC.NURSE ---
chest tube clamped at this time per annangi
--- NOTE | 2024-05-20 08:50 | P.PN_ITS ---
Subjective *Date: 05/20/24 *Time: 08:50 Medical Exam Vital signs and Labs for Last 24 Hours: Vital Signs Temp Pulse Pulse Resp BP BP Pulse Ox 05/20/24 07:00 05/20/24 06:07 96 H 05/20/24 06:07 104 H 05/20/24 06:07 98 05/20/24 06:00 84 20 118/64 94 L 05/20/24 05:00 05/20/24 04:00 96 H 05/20/24 04:00 96 H 20 122/62 95 05/20/24 04:00 05/20/24 04:00 97.5 F L 05/20/24 03:00 05/20/24 02:44 97 H 05/20/24 02:44 93 H 05/20/24 02:00 96 H 22 115/62 96 05/20/24 01:00 05/20/24 00:52 98.1 F 05/20/24 00:00 98 H 05/20/24 00:00 98 H 20 112/63 95 05/19/24 23:00 05/19/24 22:27 100 H 05/19/24 22:26 98 H 05/19/24 22:00 103 H 24 123/60 98 05/19/24 21:00 05/19/24 20:21 97.6 F 05/19/24 20:00 101 H 05/19/24 20:00 05/19/24 20:00 101 H 26 H 115/61 96 05/19/24 19:18 05/19/24 19:18 99 H 05/19/24 18:54 05/19/24 18:45 101 H 05/19/24 18:00 106 H 22 109/57 L 96 05/19/24 17:00 05/19/24 16:00 05/19/24 16:00 111 H 05/19/24 15:58 113 H 22 125/60 92 L 05/19/24 14:50 05/19/24 14:36 104 H 05/19/24 14:36 116 H 05/19/24 14:36 94 L 05/19/24 14:00 117/54 L 05/19/24 14:00 100 H 24 93 L 05/19/24 13:15 05/19/24 13:00 103 H 25 H 94 L 05/19/24 13:00 100/50 L 05/19/24 12:00 103 H 05/19/24 12:00 05/19/24 12:00 98.9 F 104 H 21 99/50 L 94 L 05/19/24 11:30 103 H 27 H 100/43 L 96 05/19/24 11:24 101 H 05/19/24 11:24 100 H 05/19/24 11:24 93 L 05/19/24 11:05 05/19/24 11:00 96 H 20 96/44 L 93 L 05/19/24 10:30 99 H 22 98/48 L 90 L 05/19/24 10:00 99 H 19 102/49 L 94 L 05/19/24 09:30 103 H 26 H 105/48 L 93 L 05/19/24 09:00 107 H 23 108/48 L 93 L 05/19/24 09:00 O2 Del Method O2 Flow Rate 05/20/24 07:00 Nasal Cannula 3.5 05/20/24 06:07 05/20/24 06:07 05/20/24 06:07 Nasal Cannula 4 05/20/24 06:00 Nasal Cannula 4 05/20/24 05:00 Nasal Cannula 4.5 05/20/24 04:00 05/20/24 04:00 Nasal Cannula 4.5 05/20/24 04:00 Nasal Cannula 4.5 05/20/24 04:00 05/20/24 03:00 Nasal Cannula 5 05/20/24 02:44 05/20/24 02:44 05/20/24 02:00 Nasal Cannula 5.5 05/20/24 01:00 Nasal Cannula 5.5 05/20/24 00:52 05/20/24 00:00 05/20/24 00:00 Nasal Cannula 5.5 05/19/24 23:00 Nasal Cannula 5.5 05/19/24 22:27 05/19/24 22:26 05/19/24 22:00 Nasal Cannula 5.5 05/19/24 21:00 Nasal Cannula 5.5 05/19/24 20:21 05/19/24 20:00 05/19/24 20:00 Nasal Cannula 6 05/19/24 20:00 Nasal Cannula 6 05/19/24 19:18 Nasal Cannula 6 05/19/24 19:18 05/19/24 18:54 Nasal Cannula 6 05/19/24 18:45 05/19/24 18:00 Nasal Cannula 6 05/19/24 17:00 Nasal Cannula 6 05/19/24 16:00 Nasal Cannula 6 05/19/24 16:00 05/19/24 15:58 Nasal Cannula 6 05/19/24 14:50 Nasal Cannula 6 05/19/24 14:36 05/19/24 14:36 05/19/24 14:36 Nasal Cannula 6 05/19/24 14:00 05/19/24 14:00 Nasal Cannula 6 05/19/24 13:15 Nasal Cannula 6 05/19/24 13:00 Nasal Cannula 6 05/19/24 13:00 05/19/24 12:00 05/19/24 12:00 Nasal Cannula 6 05/19/24 12:00 05/19/24 11:30 05/19/24 11:24 05/19/24 11:24 05/19/24 11:24 Nasal Cannula 6 05/19/24 11:05 Nasal Cannula 6 05/19/24 11:00 05/19/24 10:30 05/19/24 10:00 05/19/24 09:30 05/19/24 09:00 05/19/24 09:00 Nasal Cannula 6 Intake and Output 05/19/24 05/20/24 05/20/24 23:59 07:59 15:59 Intake Total 360 / 1040 1636 / 1636 Output Total 400 / 2270 1670 / 1670 Balance -40 / -1230 -34 / -34 Intake: Intake, Oral Amount 360 / 840 Intake, Total IV Amount 1636 / 1636 Piperacillin/Tazo 4.5 gm In 0.9 200 / 200 % Sodium Chloride 100 ml @ 200 mls/hr IV Q6H [facility] Rx#:[id number] Sodium Chloride 0.45 % 1,000 ml 1436 / 1436 @ 125 mls/hr IV .Q8H [facility] Rx#: [id number] Output: Output, Urine Amount 400 / 2200 1600 / 1600 Output, Chest Tube Drainage 70 / 70 Amount Right 70 / 70 Other: Number of Unmeasured Voids 0 0 Weight 50.848 kg Patient Weight 05/20/24 23:59 Weight 50.848 kg Laboratory Results - last 24 hr 05/19/24 13:18: WBC 11.1 H, RBC 3.74 L, Hgb 11.8 L, Hct 36.0 L, MCV 96.3 H, MCH 31.6 H, MCHC 32.8, RDW 13.3, Plt Count 267, MPV 10.3, Neut % (Auto) 92.3 H, Lymph % (Auto) 2.1 L, [place] % (Auto) 4.7, Eos % (Auto) 0.0 L, Baso % (Auto) 0.3, Neut # (Auto) 10.3 H, Lymph # (Auto) 0.2 L, [place] # (Auto) 0.5, Eos # (Auto) 0.0, Baso # (Auto) 0.0, Total Counted 100, Neutrophils % (Manual) 96 H, Lymphocytes % (Manual) 3 L, Monocytes % (Manual) 1 L, Platelet Estimate Normal, RBC Morphology Normal, Sodium 137, Potassium 4.3, Chloride 99, Carbon Dioxide 33 H, Anion Gap 9.3, BUN 36 H D, Creatinine 0.60 L, Estimated Creat Clear 50, Estimated GFR 133, Est GFR ( Amer) 161, Glucose 130 H, Calcium 8.7 I & O for Labs for Last 24 Hours: Intake & Output 05/17/24 05/18/24 05/19/24 05/20/24 23:59 23:59 23:59 23:59 Intake Total 520 / 520 700 / 900 1040 / 1040 1636 / 1636 Output Total 958 / 958 910 / 910 1200 / 2270 1670 / 1670 Balance -438 / -438 -210 / -10 -160 / -1230 -34 / -34 Weight 50.485 kg 51.982 kg 50.938 kg 50.848 kg Microbiology Reports for the Last 24 Hours: Microbiology 05/13/24 09:20 Sputum - Expectorated Sputum Gram Stain - Final 05/13/24 09:20 Sputum - Expectorated Sputum Sputum Culture - Preliminary 05/13/24 11:31 Thoracic Fluid Gram Stain - Final 05/13/24 11:31 Thoracic Fluid Body Fluid Culture - Final NO GROWTH AFTER 5 DAYS The patient's infection will respond to the chosen ABx?: Yes Is the patient receiving the right drug, dose, and route?: Yes Could a more targeted ABx be ordered?: No
[2024-05-20 09:01] LABS: MANUAL DIFFERENTIAL MANUAL DIFFERENTIAL (MANUAL DIFF)
[2024-05-20 09:09] LABS: Basophils % 0.1 % (0.1-2.0); Hematocrit 35.6 % (42.0-52.0); Hemoglobin 11.8 g/dL (14.1-18.0); Lymphocytes # 0.1 K/mm3 (0.7-4.5); Lymphocytes % 1.7 % (10-50); Mean Corpuscular HGB Conc 33.1 g/dL (31.8-35.4); Mean Corpuscular Hemoglobin 31.9 pg (27.0-31.2); Mean Corpuscular Volume 96.2 fl (80-94); Mean Platelet Volume 9.7 fl (7.4-10.4); Monocytes # 0.2 K/mm3 (0.1-1.0); Monocytes % 2.7 % (1.7-9.3); Neutrophils % 93.9 % (37.0-80.0); Platelet Count 274 K/mm3 (142-424); Red Cell Distribution Width 13.4 % (11.5-17.5); White Blood Count 7.5 K/mm3 (4.8-10.8)
[2024-05-20 09:17] LABS: Chloride 98 mmol/L (98-107); Potassium 4.2 mmoL/L (3.5-5.1); Sodium 136 mmol/L (136-145)
[2024-05-20 09:20] LABS: Alanine Aminotransferase 198 U/L (12-78); Albumin/Globulin Ratio 0.9 (1.1-1.8); Alkaline Phosphatase 167 U/L (38-126); Anion Gap 12.2 mEq/L (5-15); Aspartate Amino Transferase 135 U/L (17-59); Bilirubin,Total 0.4 mg/dl (0.2-1.3); Blood Urea Nitrogen 25 mg/dl (9-20); Carbon Dioxide 30 mmol/L (22.0-30.0); Creatinine Clearance Estimated 49 mL/min (50-200); Estimated Glomerular Filt Rate 111 ml/min (>60); GFR (African American) 135 ML/MIN (>60); Globulin 3.2 g/dL (1.3-3.2); Total Protein,Serum 6.2 g/dl (6.3-8.2)
[2024-05-20] MEDS: DEXAMETHASONE 4MG TABLET 4 MG PO ×2 (09:20→20:54)
[2024-05-20] MEDS: MEGESTROL ACETATE 400 MG/10 ML PO (09:20)
[2024-05-20] MEDS: GABAPENTIN 600MG TABLET 600 MG PO ×4 (09:20→20:54)
[2024-05-20 09:21] LABS: Calcium 8.5 mg/dl (8.4-10.2); Glucose 194 mg/dl (74-100)
[2024-05-20] MEDS: PRO-STAT AWC 30ML LIQUID PACKET 30 ML PO ×2 (09:21→20:54)
--- NOTE | 2024-05-20 09:50 | P.PN_ITS ---
Subjective *Date: 05/20/24 *Time: 11:17 Interval history: No acute respiratory events over the weekend. Patient admits improving respiratory symptoms compared to Monday. Pulmonology Exam Inpatient Vital signs and Labs for Last 24 Hours: Temp Pulse Resp BP Pulse Ox O2 Del Method O2 Flow Rate 97.6 F 96 H 20 118/64 98 Nasal Cannula 3.5 05/20/24 08:00 05/20/24 06:07 05/20/24 06:00 05/20/24 06:00 05/20/24 06:07 05/20/24 07:00 05/20/24 07:00 FiO2 40 05/19/24 08:13 Laboratory Results - last 24 hr 05/19/24 13:18: WBC 11.1 H, RBC 3.74 L, Hgb 11.8 L, Hct 36.0 L, MCV 96.3 H, MCH 31.6 H, MCHC 32.8, RDW 13.3, Plt Count 267, MPV 10.3, Neut % (Auto) 92.3 H, Lymph % (Auto) 2.1 L, [place] % (Auto) 4.7, Eos % (Auto) 0.0 L, Baso % (Auto) 0.3, Neut # (Auto) 10.3 H, Lymph # (Auto) 0.2 L, [place] # (Auto) 0.5, Eos # (Auto) 0.0, Baso # (Auto) 0.0, Total Counted 100, Neutrophils % (Manual) 96 H, Lymphocytes % (Manual) 3 L, Monocytes % (Manual) 1 L, Platelet Estimate Normal, RBC Morphology Normal, Sodium 137, Potassium 4.3, Chloride 99, Carbon Dioxide 33 H, Anion Gap 9.3, BUN 36 H D, Creatinine 0.60 L, Estimated Creat Clear 50, Estimated GFR 133, Est GFR ( Amer) 161, Glucose 130 H, Calcium 8.7 05/20/24 08:55: WBC 7.5 D, RBC 3.70 L, Hgb 11.8 L, Hct 35.6 L, MCV 96.2 H, MCH 31.9 H, MCHC 33.1, RDW 13.4, Plt Count 274, MPV 9.7, Neut % (Auto) 93.9 H, Lymph % (Auto) 1.7 L, [place] % (Auto) 2.7, Eos % (Auto) 0.0 L, Baso % (Auto) 0.1, Neut # (Auto) 7.0, Lymph # (Auto) 0.1 L, [place] # (Auto) 0.2, Eos # (Auto) 0.0, Baso # (Auto) 0.0, Sodium 136, Potassium 4.2, Chloride 98, Carbon Dioxide 30, Anion Gap 12.2, BUN 25 H D, Creatinine 0.70, Estimated Creat Clear 49, Estimated GFR 111, Est GFR ( Amer) 135, Glucose 194 H D, Calcium 8.5, Total Bilirubin 0.4, AST 135 H D, ALT 198 H D, Alkaline Phosphatase 167 H, Total Protein 6.2 L, Albumin 3.0 L, Globulin 3.2, Albumin/Globulin Ratio 0.9 L Temp Pulse Resp BP Pulse Ox O2 Del Method O2 Flow Rate 97.9 F 115 H 21 115/60 90 L Nasal Cannula 3 05/13/24 08:00 05/13/24 08:00 05/13/24 08:00 05/13/24 08:00 05/13/24 08:00 05/13/24 09:00 05/13/24 09:00 Laboratory Results - last 24 hr 05/12/24 06:51: Urine Color Yellow, Urine Appearance Clear, Urine pH 7.0, Ur Specific [place] 1.015, Urine Protein Negative, Urine Glucose (UA) Negative, Urine Ketones Negative, Urine Blood Negative, Urine Nitrate Negative, Urine Bilirubin Negative, Urine Urobilinogen 1.0, Ur Leukocyte Esterase Negative, Urine RBC None, Urine WBC 3-5, Ur Squamous Epith Cells Occasional, Urine Bacteria None 05/12/24 09:41: PT 11.1, INR 1.01, Troponin I < 0.01 05/12/24 11:45: Lactate 1.7, Troponin I < 0.01 I & O for Labs for Last 24 Hours: Intake & Output 05/17/24 05/18/24 05/19/24 05/20/24 23:59 23:59 23:59 23:59 Intake Total 520 / 520 700 / 900 1040 / 1040 2236 / 2236 Output Total 958 / 958 910 / 910 1200 / 2270 1670 / 1670 Balance -438 / -438 -210 / -10 -160 / -1230 566 / 566 Weight 111 lb 4.8 oz 114 lb 9.6 oz 112 lb 4.8 oz 112 lb 1.6 oz Intake & Output 05/10/24 05/11/24 05/12/24 05/13/24 23:59 23:59 23:59 23:59 Intake Total 790 / 790 Output Total 650 / 1050 1075 / 1075 Balance 140 / -260 -1075 / -1075 Weight 116 lb 0.998 oz 116 lb 3.2 oz Microbiology Reports for the Last 24 Hours: Microbiology 05/13/24 09:20 Sputum - Expectorated Sputum Gram Stain - Final 05/13/24 09:20 Sputum - Expectorated Sputum Sputum Culture - Preliminary 05/13/24 11:31 Thoracic Fluid Gram Stain - Final 05/13/24 11:31 Thoracic Fluid Body Fluid Culture - Final NO GROWTH AFTER 5 DAYS Microbiology 05/12/24 07:07 Blood Blood Culture - Preliminary NO GROWTH AFTER 24 HOURS 05/12/24 07:08 Blood Blood Culture - Preliminary NO GROWTH AFTER 24 HOURS Constitutional: Present moderate distress Head: Present normocephalic and atraumatic ENT: Present normal exam, normal oropharynx and mucous membranes moist Neck: Present normal inspection and full ROM Respiratory: Present respiratory distress, rhonchi, diminished air movement and able to speak in complete sentences; Absent wheezes or crackles Cardiac: Present S1/S2, Tachycardia and radial pulses present GI: Present soft and distention; Absent tenderness or guarding Skin: Present intact; Absent cyanosis or jaundice Neuro: Present alert, awake and oriented x 3 Extremities: Present normal inspection; Absent clubbing or cyanosis Psychiatric: Present normal affect and cooperative Assessment and Plan *Assessment and plan (1) Acute hypoxemic respiratory failure: Status: Acute Category: Medical Code(s): J96.01 - Acute respiratory failure with hypoxia (2) Pleural effusion on right: Status: Acute Category: Medical Code(s): J90 - Pleural effusion, not elsewhere classified (3) Pneumonia: Status: Acute Category: Medical Code(s): J18.9 - Pneumonia, unspecified organism (4) Pneumothorax: Status: Acute Category: Medical Code(s): J93.9 - Pneumothorax, unspecified (5) Malignant pleural effusion: Status: Acute Category: Medical Code(s): J91.0 - Malignant pleural effusion Plan Mr. Kiskaden is a 76-year-old male, COPD lung cancer presented to the ER with worsening respiratory distress found to have a large right pleural effusion and increasing oxygen requirements and pulmonary was called for further evaluation and management. Afebrile. Hemodynamically stable. Mild neutrophilic predominant leukocytosis upon admission improving. CTA upon admission no evidence of pulmonary embolism. Large right pleural effusion. Concerning worsening size of the nodular opacity in the right upper lobe from February 2024. CT also noted bilateral groundglass opacities concerning for pneumonia On initial examination patient admits gradually worsening respiratory distress. No known sick contacts but denies any worsening cough or any productive phlegm. Status post thoracentesis with removal of 272 0 cc of blood-tinged pleural fluid. Pneumothorax status post chest tube placement. No significant change in the pneumothorax for 36 hours status post chest tube clamping. Heimlich valve was placed yesterday. Repeat chest X morning concerning for worsening pneumothorax. Pleural fluid cytology resulted positive for malignancy consistent with patient's prior pulmonary adenocarcinoma. CT PE, bilateral worsening consolidative changes left greater than right. Near complete resolution of the noted pneumothorax. No obvious evidence of large proximal occlusive pulmonary embolism. Complains of respiratory viral PCR panel negative Interval update: Improving oxygen requirements over the weekend. Weaned to nasal cannula. Follow-up imaging showed pneumothorax. Chest tube to suction. Currently receiving Zosyn. Repeat sputum cultures gram-negative rods, will follow. Currently receiving Zosyn. Improving leukocytosis. Afebrile. Hemodynamically stable. Plan: Oxygen supplementation supplementation via nasal cannula to maintain O2 saturation goal of 90% Continue Zosyn pending culture results Clamp the chest tube, follow with repeat chest x-ray.
[2024-05-20 09:58] LABS: Lymphocytes % 3 % (10-50); Monocytes % 2 % (2-9); Neutrophils % 95 % (42-76); Platelet Estimate Normal; RBC Morphology Normal; Total Cells Counted 100
--- NOTE | 2024-05-20 13:00 | XR_ITS ---
FINAL REPORT CLINICAL HISTORY: Pneumothorax; bilateral airspace infiltrates COMPARISON: 7 hours prior FINDINGS: The heart size is normal. Right-sided small bore chest tube is present. The mediastinum is normal. Patchy bilateral airspace infiltrates appear slightly improved relative to the prior exam. There are no pleural effusions. There is no pneumothorax. There is no osseous abnormality. IMPRESSION: Slightly improved bilateral airspace infiltrates. Reviewed, Interpreted and Dictated by Regulo Schaeffer MD Transcribed by Charlene Tello Authenticated and [facility]
--- NOTE | 2024-05-20 14:12 | HMH.PTEV ---
Physical Therapy Evaluation Rehab PT IP Evaluation Start: 05/20/24 08:25 Freq: ONCE Status: Active Protocol: Document 05/20/24 13:53 PHORNE (Rec: 05/20/24 14:12 PHORNE [email or web address]) Subjective/History History History 68-year-old male with known adenocarcinoma of the right lung presents to the ER for concerns of shortness of breath, found to have fluid around the R lung during work- up. He is generally independent with all mobility at baseline and lives with his spouse, with 1-2 RAUL the home . He presents supine in bed, R side chest tube in place draining serous/yellow fluid. 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 Subjective Subjective He reports no specific c/o this pm, but does feel weak in general. Rehab PT IP Eval Objective Appearance Patient Behavior Appropriate Patient Orientation Person,Place,Time Difficulty following instructions none Speech Pattern Clear Ambulation Patient Able to Ambulate No Balance Ability to Arise Able, uses arms to help Sitting Balance Leans or slides in chair Standing Balance Unsteady Dynamic Sitting Balance Ability Fair Dynamic Standing Balance Ability Poor Transfers Bed Transfer Ability Minimal x 1 (25% assist) Chair Transfer Ability Moderate x 1 (50% assist) Sit to Stand Bed Transfer Ability Moderate x 1 (50% assist) Sit to Stand Chair Transfer Ability Moderate x 1 (50% assist) ROM All Extremities PT ROM Status WFL MMT All Extremities PT MMT WFL Abnormal MMT Grade grossly 3/5 at this time. Rehab PT IP prob,goals,plan Problems Date of Evaluation: 05/20/24 PT IP Problems Bed Mobility,Transfers,Gait Rehab Potential Rehab Potential Good Plan PT Intervention Plan Bed Mobility,Transfers,Gait, Therapeutic Exercise PT Plan Frequency Daily Duration LOS Discharge Goals Bed Transfer Ability Contact Guard/Hand Hold Sit to Stand Chair Transfer Ability Minimal x 1 (25% assist) Ambulation Assistive Device Rolling Walker Ambulation Distance (feet) 20 Discharge Plan PT Discharge Plan Pt is currently most appropriate for rehab placement once medically stable for d/c due to prolonged bedrest with increased generalized weakness and difficulty with transfers . If he were to meet all of his therapy goals he may become appropriate to return home with family assistance at that time. Skilled therapy is indicated to improve strength , improve transfers, and increase ambulation ability in order to aid pt return to [facility]. Eval Complexity Eval Charge Codes 83249 - High Complexity PHYSICIAN CERTIFICATION: I certify the specified therapy services for Demetra Magallon JR are required, authorized, and reviewed every 30 days.
--- NOTE | 2024-05-20 15:07 | PC.NURSE ---
pt's chest tube removed by MD Olivares. PT tolerated well. occlusive dressing in place
[2024-05-20] MEDS: OLANZapine 5 MG ODT TABLET SL (20:54)
[2024-05-21] VITALS (20 sets, daily range): BP systolic 107–175; BP diastolic 53–67; PULSE 100–120; RESP 16–28; TEMP 36.3–36.6; O2SAT 88–96; BMI 14.9
[2024-05-21] MEDS: SODIUM CHLORIDE 0.45 % 1,000 ML 75 ML IV ×2 (00:24→23:35)
[2024-05-21] MEDS: PIPERACILLIN/TAZO 4.5 GM in 0.9 % SODIUM CHLORIDE 100 ML IV ×3 (00:24→12:17)
[2024-05-21] MEDS: IPRATROPIUM/ALBUTEROL 3 ML NEB IH ×5 (02:28→23:11)
[2024-05-21] MEDS: BUDESONIDE 0.5MG/2ML NEB 0.5 MG IH ×2 (06:10→18:25)
--- NOTE | 2024-05-21 07:47 | XR_ITS ---
FINAL REPORT CLINICAL HISTORY: post chest tube removal COMPARISON: 05/20/2024 FINDINGS: The chest tube is been removed. The heart size is normal. The mediastinum is normal. There is persistent patchy airspace opacity in the left perihilar region and at the left lung base. There are no pleural effusions. There is no right-sided pneumothorax seen. There is no osseous abnormality. IMPRESSION: Interval note is a left chest tube without evidence of pneumothorax. Persistent airspace opacity left perihilar region and left lung base, slightly increased from prior. Reviewed, Interpreted and Dictated by Regulo Schaeffer MD Transcribed by Charlene Tello Authenticated and . [facility]
--- NOTE | 2024-05-21 07:59 | EXP.ACUTE.PN ---
Subjective *Date: 05/21/24 *Time: 07:59 Interval history: Patient states he is doing well this morning. He would like to go home today. Chest tube was removed yesterday. Repeat chest x-ray after tube removed with the following: FINDINGS: The heart size is normal. Right-sided small bore chest tube is present. The mediastinum is normal. Patchy bilateral airspace infiltrates appear slightly improved relative to the prior exam. There are no pleural effusions. There is no pneumothorax. There is no osseous abnormality. IMPRESSION: Slightly improved bilateral airspace infiltrates. O2 sats have been 90s on nasal cannula at 3 L/min. He denies pain. He has been up to the bathroom and his bowels did move a large amount which made him feel better. He is voiding QS. He has been able to eat and drink without problems. He states he snacks all day. Physical therapy did see him yesterday. He sat up in a chair for about an hour and did okay. He took a few steps and needed assistance. They recommend long term. Patient states he has a and son that help will help him at home. He states he needs to go to the gym to strengthen his legs. Medical Exam Vital signs and Labs for Last 24 Hours: Vital Signs Temp Pulse Pulse Resp BP Pulse Ox O2 Del Method 05/21/24 06:36 Nasal Cannula 05/21/24 06:11 102 H 05/21/24 06:11 105 H 05/21/24 06:11 93 L Nasal Cannula 05/21/24 06:00 111 H 18 116/58 L 94 L Nasal Cannula 05/21/24 05:00 Nasal Cannula 05/21/24 04:00 100 H 05/21/24 04:00 97.5 F L 05/21/24 04:00 Nasal Cannula 05/21/24 04:00 104 H 18 122/63 94 L Nasal Cannula 05/21/24 03:00 Nasal Cannula 05/21/24 02:28 104 H 05/21/24 02:28 105 H 05/21/24 02:00 108 H 18 125/66 92 L Nasal Cannula 05/21/24 01:00 Nasal Cannula 05/21/24 00:00 102 H 16 107/53 L 94 L Nasal Cannula 05/21/24 00:00 100 H 05/21/24 00:00 97.4 F L 05/20/24 23:00 Nasal Cannula 05/20/24 22:00 107 H 18 116/54 L 95 Nasal Cannula 05/20/24 21:40 106 H 05/20/24 21:40 112 H 05/20/24 21:00 Nasal Cannula 05/20/24 20:00 100 H 05/20/24 20:00 112 H 18 135/65 91 L Nasal Cannula 05/20/24 20:00 Nasal Cannula 05/20/24 20:00 97.5 F L 05/20/24 18:45 Nasal Cannula 05/20/24 18:36 110 H 05/20/24 18:36 112 H 05/20/24 18:36 92 L Nasal Cannula 05/20/24 18:00 104 H 18 113/61 94 L Nasal Cannula 05/20/24 17:00 Nasal Cannula 05/20/24 16:00 110 H 05/20/24 16:00 98.1 F 05/20/24 16:00 109 H 18 135/72 91 L Nasal Cannula 05/20/24 16:00 91 L Nasal Cannula 05/20/24 15:00 Nasal Cannula 05/20/24 14:00 112 H 18 134/57 L 93 L Nasal Cannula 05/20/24 13:11 102 H 05/20/24 13:11 105 H 05/20/24 13:00 Nasal Cannula 05/20/24 12:00 110 H 05/20/24 12:00 98.0 F 05/20/24 12:00 103 H 16 136/63 94 L Nasal Cannula 05/20/24 11:00 Nasal Cannula 05/20/24 10:09 90 05/20/24 10:09 98 H 05/20/24 10:00 96 H 18 125/63 97 Nasal Cannula 05/20/24 09:00 Nasal Cannula 05/20/24 08:00 95 Nasal Cannula 05/20/24 08:00 99 H 18 124/63 95 Nasal Cannula 05/20/24 08:00 100 H 05/20/24 08:00 97.6 F O2 Flow Rate 05/21/24 06:36 3 05/21/24 06:11 05/21/24 06:11 05/21/24 06:11 3 05/21/24 06:00 3 05/21/24 05:00 3 05/21/24 04:00 05/21/24 04:00 05/21/24 04:00 3 05/21/24 04:00 3 05/21/24 03:00 3 05/21/24 02:28 05/21/24 02:28 05/21/24 02:00 3 05/21/24 01:00 3 05/21/24 00:00 3 05/21/24 00:00 05/21/24 00:00 05/20/24 23:00 3 05/20/24 22:00 3 05/20/24 21:40 05/20/24 21:40 05/20/24 21:00 3.5 05/20/24 20:00 05/20/24 20:00 3 05/20/24 20:00 3 05/20/24 20:00 05/20/24 18:45 3 05/20/24 18:36 05/20/24 18:36 05/20/24 18:36 3.5 05/20/24 18:00 3 05/20/24 17:00 3 05/20/24 16:00 05/20/24 16:00 05/20/24 16:00 3.5 05/20/24 16:00 3.5 05/20/24 15:00 3.5 05/20/24 14:00 3.5 05/20/24 13:11 05/20/24 13:11 05/20/24 13:00 3.5 05/20/24 12:00 05/20/24 12:00 05/20/24 12:00 3 05/20/24 11:00 3 05/20/24 10:09 05/20/24 10:09 05/20/24 10:00 3.5 05/20/24 09:00 3.5 05/20/24 08:00 3.5 05/20/24 08:00 3.5 05/20/24 08:00 05/20/24 08:00 Intake and Output 05/20/24 05/21/24 05/21/24 19:59 03:59 11:59 Intake Total 1204 / 1204 1180 / 2384 Output Total 700 / 700 0 / 700 1300 / 2000 Balance 504 / 504 1180 / 1684 -1300 / 384 Intake: Intake, Oral Amount 480 / 480 240 / 720 Intake, Total IV Amount 724 / 724 940 / 1664 Piperacillin/Tazo 4.5 gm In 0.9 198 / 198 100 / 298 % Sodium Chloride 100 ml @ 200 mls/hr IV Q6H [facility] Rx#:[id number] Sodium Chloride 0.45 % 1,000 ml 526 / 526 840 / 1366 @ 75 mls/hr IV .[id number] [facility] Rx #:[id number] Output: Output, Urine Amount 700 / 700 0 / 700 1300 / 2000 Other: Number of Unmeasured Voids 1 0 Number of Bowel Movements 1 1 Weight 110 lb 1.6 oz Patient Weight 05/21/24 11:59 Weight 110 lb 1.6 oz Laboratory Results - last 24 hr 05/20/24 08:55: WBC 7.5 D, RBC 3.70 L, Hgb 11.8 L, Hct 35.6 L, MCV 96.2 H, MCH 31.9 H, MCHC 33.1, RDW 13.4, Plt Count 274, MPV 9.7, Neut % (Auto) 93.9 H, Lymph % (Auto) 1.7 L, [place] % (Auto) 2.7, Eos % (Auto) 0.0 L, Baso % (Auto) 0.1, Neut # (Auto) 7.0, Lymph # (Auto) 0.1 L, [place] # (Auto) 0.2, Eos # (Auto) 0.0, Baso # (Auto) 0.0, Total Counted 100, Neutrophils % (Manual) 95 H, Lymphocytes % (Manual) 3 L, Monocytes % (Manual) 2, Platelet Estimate Normal, RBC Morphology Normal, Sodium 136, Potassium 4.2, Chloride 98, Carbon Dioxide 30, Anion Gap 12.2, BUN 25 H D, Creatinine 0.70, Estimated Creat Clear 49, Estimated GFR 111, Est GFR ( Amer) 135, Glucose 194 H D, Calcium 8.5, Total Bilirubin 0.4, AST 135 H D, ALT 198 H D, Alkaline Phosphatase 167 H, Total Protein 6.2 L, Albumin 3.0 L, Globulin 3.2, Albumin/Globulin Ratio 0.9 L I & O for Labs for Last 24 Hours: Intake & Output 05/18/24 05/19/24 05/20/24 05/21/24 11:59 11:59 11:59 11:59 Intake Total 580 / 580 830 / 830 2836 / 2836 2384 / 2384 Output Total 850 / 850 1050 / 1050 2069 / 2069 Balance -270 / -270 -220 / -220 766 / 766 384 / 384 Weight 114 lb 9.6 oz 112 lb 4.8 oz 112 lb 1.6 oz 110 lb 1.6 oz Microbiology Reports for the Last 24 Hours: Microbiology 05/13/24 09:20 Sputum - Expectorated Sputum Gram Stain - Final 05/13/24 09:20 Sputum - Expectorated Sputum Sputum Culture - Final Pseudomonas aeruginosa Constitutional: Present no acute distress and thin (Sitting up in the bed eating his breakfast) Respiratory: Present rhonchi (Bilateral coarse rhonchi posteriorly. Congestive cough.) Cardiac: Present Reg Rate and Rhythm GI: Present soft and normal bowel sounds; Absent distention or tenderness Extremities: Absent tenderness or edema Neuro: Present alert, awake and oriented x 3 Assessment and Plan *Assessment and plan (1) Malignant pleural effusion: Status: Acute Category: Medical Code(s): J91.0 - Malignant pleural effusion (2) Chest tube in place: Status: Acute Category: Medical Code(s): Z96.89 - Presence of other specified functional implants (3) Pneumonia: Status: Acute Category: Medical Code(s): J18.9 - Pneumonia, unspecified organism (4) Acute hypoxemic respiratory failure: Status: Acute Category: Medical Code(s): J96.01 - Acute respiratory failure with hypoxia (5) Pleural effusion on right: Status: Acute Category: Medical Code(s): J90 - Pleural effusion, not elsewhere classified (6) Primary lung cancer: Status: Acute Category: Medical Code(s): C34.90 - Malignant neoplasm of unspecified part of unspecified bronchus or lung (7) Glaucoma of right eye: Status: Acute Category: Medical Code(s): H40.9 - Unspecified glaucoma (8) Severe protein-calorie malnutrition: Status: Acute Category: Medical Code(s): E43 - Unspecified severe protein-calorie malnutrition (9) Severe muscle deconditioning: Status: Acute Category: Medical Code(s): R29.898 - Other symptoms and signs involving the musculoskeletal system (10) Malignant neoplasm of right upper lobe of lung: Status: Acute Category: Medical Code(s): C34.11 - Malignant neoplasm of upper lobe, right bronchus or lung (11) COPD mixed type: Status: Chronic Category: Medical Code(s): J44.9 - Chronic obstructive pulmonary disease, unspecified Plan Saline lock. Chest x-ray this morning. Pulmonology to follow.
--- NOTE | 2024-05-21 09:34 | P.PN_ITS ---
Subjective *Date: 05/21/24 *Time: 12:28 Interval history: No acute respiratory events overnight. Pulmonology Exam Inpatient Vital signs and Labs for Last 24 Hours: Temp Pulse Resp BP Pulse Ox O2 Del Method O2 Flow Rate 97.9 F 110 H 18 116/58 L 93 L Nasal Cannula 3 05/21/24 08:00 05/21/24 08:00 05/21/24 06:00 05/21/24 06:00 05/21/24 06:11 05/21/24 06:36 05/21/24 06:36 FiO2 40 05/19/24 08:13 Laboratory Results - last 24 hr 05/20/24 08:55: Total Counted 100, Neutrophils % (Manual) 95 H, Lymphocytes % (Manual) 3 L, Monocytes % (Manual) 2, Platelet Estimate Normal, RBC Morphology Normal Temp Pulse Resp BP Pulse Ox O2 Del Method O2 Flow Rate 97.9 F 115 H 21 115/60 90 L Nasal Cannula 3 05/13/24 08:00 05/13/24 08:00 05/13/24 08:00 05/13/24 08:00 05/13/24 08:00 05/13/24 09:00 05/13/24 09:00 Laboratory Results - last 24 hr 05/12/24 06:51: Urine Color Yellow, Urine Appearance Clear, Urine pH 7.0, Ur Specific [place] 1.015, Urine Protein Negative, Urine Glucose (UA) Negative, Urine Ketones Negative, Urine Blood Negative, Urine Nitrate Negative, Urine Bilirubin Negative, Urine Urobilinogen 1.0, Ur Leukocyte Esterase Negative, Urine RBC None, Urine WBC 3-5, Ur Squamous Epith Cells Occasional, Urine Bacteria None 05/12/24 09:41: PT 11.1, INR 1.01, Troponin I < 0.01 05/12/24 11:45: Lactate 1.7, Troponin I < 0.01 I & O for Labs for Last 24 Hours: Intake & Output 05/18/24 05/19/24 05/20/24 05/21/24 23:59 23:59 23:59 23:59 Intake Total 700 / 900 1040 / 1040 3440 / 4620 1180 / 1180 Output Total 910 / 910 1200 / 2270 2370 / 2370 1300 / 1300 Balance -210 / -10 -160 / -1230 1070 / 2250 -120 / -120 Weight 114 lb 9.6 oz 112 lb 4.8 oz 112 lb 1.6 oz 110 lb 1.6 oz Intake & Output 05/10/24 05/11/24 05/12/24 05/13/24 23:59 23:59 23:59 23:59 Intake Total 790 / 790 Output Total 650 / 1050 1075 / 1075 Balance 140 / -260 -1075 / -1075 Weight 116 lb 0.998 oz 116 lb 3.2 oz Microbiology Reports for the Last 24 Hours: Microbiology 05/13/24 09:20 Sputum - Expectorated Sputum Gram Stain - Final 05/13/24 09:20 Sputum - Expectorated Sputum Sputum Culture - Final Pseudomonas aeruginosa Microbiology 05/12/24 07:07 Blood Blood Culture - Preliminary NO GROWTH AFTER 24 HOURS 05/12/24 07:08 Blood Blood Culture - Preliminary NO GROWTH AFTER 24 HOURS Constitutional: Present moderate distress Head: Present normocephalic and atraumatic ENT: Present normal exam, normal oropharynx and mucous membranes moist Neck: Present normal inspection and full ROM Respiratory: Present respiratory distress, rhonchi, diminished air movement and able to speak in complete sentences; Absent wheezes or crackles Cardiac: Present S1/S2, Tachycardia and radial pulses present GI: Present soft and distention; Absent tenderness or guarding Skin: Present intact; Absent cyanosis or jaundice Neuro: Present alert, awake and oriented x 3 Extremities: Present normal inspection; Absent clubbing or cyanosis Psychiatric: Present normal affect and cooperative Assessment and Plan *Assessment and plan (1) Acute hypoxemic respiratory failure: Status: Acute Category: Medical Code(s): J96.01 - Acute respiratory failure with hypoxia (2) Pleural effusion on right: Status: Acute Category: Medical Code(s): J90 - Pleural effusion, not elsewhere classified (3) Pneumonia: Status: Acute Category: Medical Code(s): J18.9 - Pneumonia, unspecified organism (4) Pneumothorax: Status: Acute Category: Medical Code(s): J93.9 - Pneumothorax, unspecified (5) Malignant pleural effusion: Status: Acute Category: Medical Code(s): J91.0 - Malignant pleural effusion Plan Mr. Magallon is a 76-year-old male, COPD lung cancer presented to the ER with worsening respiratory distress found to have a large right pleural effusion and increasing oxygen requirements and pulmonary was called for further evaluation and management. Afebrile. Hemodynamically stable. Mild neutrophilic predominant leukocytosis upon admission improving. CTA upon admission no evidence of pulmonary embolism. Large right pleural effusion. Concerning worsening size of the nodular opacity in the right upper lobe from February 2024. CT also noted bilateral groundglass opacities concerning for pneumonia On initial examination patient admits gradually worsening respiratory distress. No known sick contacts but denies any worsening cough or any productive phlegm. Status post thoracentesis with removal of 272 0 cc of blood-tinged pleural fluid. Pneumothorax status post chest tube placement. No significant change in the pneumothorax for 36 hours status post chest tube clamping. Heimlich valve was placed yesterday. Repeat chest X morning concerning for worsening pneumothorax. Pleural fluid cytology resulted positive for malignancy consistent with patient's prior pulmonary adenocarcinoma. CT PE, bilateral worsening consolidative changes left greater than right. Near complete resolution of the noted pneumothorax. No obvious evidence of large proximal occlusive pulmonary embolism. Complains of respiratory viral PCR panel negative Interval update: Chest tube removed yesterday. No evidence of pneumothorax on x-ray from this morning. Concerning for slight worsening of infiltrates. Stable oxygen requirements. Stable leukocytosis. Repeat blood cultures growing Pseudomonas intermediate sensitive to levofloxacin. Plan: Lasix 40 mg IV once Oxygen supplementation supplementation via nasal cannula to maintain O2 saturation goal of 90% Continue cefepime 1 g IV every 8 hours for a total of 7 days with a stop date of 05/24/2023 DuoNebs every 6 hours along with Pulmicort every 12 scheduled, can be discharged home on home Mayo 100 inhaler
[2024-05-21] MEDS: GABAPENTIN 600MG TABLET 600 MG PO ×4 (09:45→20:35)
[2024-05-21] MEDS: DEXAMETHASONE 4MG TABLET 4 MG PO ×2 (09:45→20:35)
[2024-05-21] MEDS: MEGESTROL ACETATE 400 MG/10 ML PO (09:45)
[2024-05-21] MEDS: PRO-STAT AWC 30ML LIQUID PACKET 30 ML PO ×2 (09:45→20:35)
[2024-05-21] MEDS: FUROSEMIDE 20 MG/2 ML VIAL IV (09:46)
--- NOTE | 2024-05-21 10:08 | CARE MANAGER ---
Addendum entered by Alexandra Linares RN 05/22/24 09:34: Patient has portable. Family to call [facility] once discharged and will deliver concentrator. Original Note: Information and order sent to [facility] for home oxygen.
--- NOTE | 2024-05-21 10:10 | PC.NURSE ---
Pt was 88% on RA while at rest.
--- NOTE | 2024-05-21 10:11 | SW/DCPLANNER ---
Addendum entered by [facility] 05/22/24 11:27: I have updated [place] w/ [facility] that patient will discharge home today. Addendum entered by [facility] 05/21/24 15:22: Patient's copay for medication per Tory is $64. Patient is currently having a midline placed. I will ask patient's nurse (Roxi) to relay information once midline is completed. I have updated patient regarding discharge plan of tomorrow, [facility] stated that services will start tomorrow and [place] w/ [facility] [place] will deliver IV medications to home. Addendum entered by [facility] 05/21/24 13:26: Patient will need IV antibiotics Q8 for three days. Patient is not interested in placement and prefers to return home. is agreeable to patient returning home and is willing to assist w/ other family members for IV antibiotics. Patient information has been faxed to [facility] [place] at this time. Addendum entered by Anna Rodriguez 05/21/24 13:04: [facility] has accepted patient. Alejandro Coughlin Addendum entered by [facility] 05/21/24 10:13: Patient information/order faxed to [facility]. Original Note: I spoke w/ this patient regarding plans once medically stable for discharge. PT/OT evaluated patient and recommended SNF level of care. Patient stated this AM that he resides at home w/ his and son. Patient is not interested in placement at this time. Patient prefers to return home w/ home health services (no preference) and home O2. Per MD patient is medically stable for discharge today. I will arrange home health services for patient.
--- NOTE | 2024-05-21 10:48 | HMH.OTEV ---
OT Inpatient Evaluation Rehab OT IP Evaluation Start: 05/21/24 08:19 Freq: ONCE Status: Active Protocol: Document 05/21/24 10:43 [facility] (Rec: 05/21/24 10:48 [facility] [id number]) Rehab OT IP Assessment Subjective History Pt oriented x 2 on arrival. Pt agreeable to engage in therapy evaluation. Pt is a 68-year-old male with known adenocarcinoma of the right lung presents to the ER for concerns of shortness of breath, found to have fluid around the R lung during work- up. He is generally independent with all functional transfers at baseline and lives with his spouse and son, with 1-2 RAUL the home. Pt claims he is normally independent with all ADLs such as dressing, bathing and feeding. He is dependent upon family for completion of all IADLs. He presents supine in bed and with a known chronic sacral wound that has been present for many months upon admission. Subjective I have been laying in this bed for 10 days. Objective Patient Orientation Person,Birthday Right Upper Extremity Gross ROM Mod Limitation 50% Left Upper Extremity Gross ROM Mod Limitation 50% Shoulder ROM Limitations Muscle Weakness Elbow ROM Limitations Muscle Weakness Wrist Limitations of Range of Motion Muscle Weakness Bed Mobility bed mobility-scooting,bed mobility - supine/sit Assist Level Moderate x 2 (50% assist) Transfer Training Sit/Stand/Pivot Transfer Assist Level Moderate x 2 (50% assist) Chair Transfer Ability Moderate x 2 (50% assist) Chair Transfer Technique Stand Pivot Rehab OT IP prob,goals,plan Problems Date of Evaluation: 05/21/24 OT IP Problems Bed Mobility,Transfers,Balance ,Self care,Safety Rehab Potential Rehab Potential Fair Equipment Needs Assistive Devices Rolling / Wheeled Walker Plan OT intervention Plan Bed Mobility,Transfers,Balance ,Self care,Safety,Therapeutic Exercise OT Plan Frequency Daily Duration LOS Discharge Goals Bed Mobility Ability Assistance x1 Sit to Stand Chair Transfer Ability Moderate x 1 (50% assist) Chair Transfer Ability Moderate x 1 (50% assist) Chair Transfer Technique Stand Step Pivot Chair Transfer Assistive Devices Rolling Walker Feeding Ability Assist with Tray Set Up Lower Body Dressing Ability Moderate Assistance Upper Body Dressing Ability Minimal Assistance Bathing Ability Moderate Assistance Performing Toilet Hygiene Ability Moderate Assistance Overall Commode/Toilet Transfer Ability Moderate Assistance Commode/Toilet Transfer Technique Stand Step Pivot Commode/Toilet Transfer Assistive Grab Bars Devices Decrease in Endurance Yes Discharge Plan OT Discharge Plan Pt is currently most appropriate for rehab placement once medically stable for d/c due to prolonged bedrest with increased generalized weakness and difficulty with transfers . If he were to meet all of his therapy goals he may become appropriate to return home with family assistance at that time. Skilled therapy is indicated to improve strength , improve transfers, and increase ADL independence ability in order to aid pt return to [facility]. Eval Complexity Eval Charge Codes 00866 - Moderate Complexity PHYSICIAN CERTIFICATION: I certify the specified therapy services for Demetra Magallon JR are required, authorized, and reviewed every 30 days.
[2024-05-21] MEDS: CEFEPIME HCL 1 GM in 0.9 % SODIUM CHLORIDE 50 ML IV (18:12)
--- NOTE | 2024-05-21 18:31 | PC.NURSE ---
Pt A&Ox4. Resting in bed. He has remained on 3L O2 NC this shift. Tolerating well. O2 sats have ranged from low to upper 90s. Pt received midline today for ABX that will be administered at home. Education given to pt and on how to maintain midline and administer ABX. BP has remained stable this shift. He remains Sinus Tach on telemetry. Call light within reach. Family at bedside.
[2024-05-21] MEDS: OLANZapine 5 MG ODT TABLET SL (20:35)
[2024-05-22] VITALS (7 sets, daily range): BP systolic 97–125; BP diastolic 52–67; PULSE 99–112; RESP 16–20; TEMP 36.6–37; O2SAT 92–95; BMI 14.6
[2024-05-22] MEDS: CEFEPIME HCL 1 GM in 0.9 % SODIUM CHLORIDE 50 ML IV ×2 (02:09→10:10)
[2024-05-22] MEDS: IPRATROPIUM/ALBUTEROL 3 ML NEB IH (06:07)
[2024-05-22] MEDS: BUDESONIDE 0.5MG/2ML NEB 0.5 MG IH (06:07)
--- NOTE | 2024-05-22 08:24 | EXP.ACUTE.PN ---
Subjective *Date: 05/22/24 *Time: 08:24 Interval history: Patient is feeling better this am. His discharge was cancelled yesterday because he started new abx and was going to need a dose in the middle of the night. His family was educated on how to give them at home. Nursing says he does not yet have an oxygen concentrator at home. He denies any pain or SOA. He still has a cough. He is anxious to go home. Medical Exam Vital signs and Labs for Last 24 Hours: Vital Signs Temp Pulse Pulse Resp BP Pulse Ox O2 Del Method 05/22/24 07:33 Nasal Cannula 05/22/24 06:34 Nasal Cannula 05/22/24 06:08 101 H 05/22/24 06:08 102 H 05/22/24 06:08 95 Nasal Cannula 05/22/24 06:00 103 H 18 97/57 L 95 Nasal Cannula 05/22/24 05:00 Nasal Cannula 05/22/24 04:00 101 H 18 121/65 92 L Nasal Cannula 05/22/24 04:00 102 H Nasal Cannula 05/22/24 04:00 98.2 F 05/22/24 04:00 100 H 05/22/24 03:00 Nasal Cannula 05/22/24 01:00 Nasal Cannula 05/22/24 00:00 100 H 05/22/24 00:00 99 H 16 103/52 L 93 L Nasal Cannula 05/22/24 00:00 98.6 F 05/21/24 23:21 101 H 05/21/24 23:11 103 H 05/21/24 23:11 93 L Nasal Cannula 05/21/24 23:00 Nasal Cannula 05/21/24 22:00 101 H 18 121/62 92 L Nasal Cannula 05/21/24 21:00 Nasal Cannula 05/21/24 20:00 100 H 05/21/24 20:00 97.9 F 05/21/24 20:00 107 H Nasal Cannula 05/21/24 20:00 106 H 18 115/63 96 Nasal Cannula 05/21/24 18:43 Nasal Cannula 05/21/24 18:40 112 H 05/21/24 18:40 95 Nasal Cannula 05/21/24 18:28 102 H 05/21/24 18:00 106 H 27 H 119/65 94 L Nasal Cannula 05/21/24 17:00 Nasal Cannula 05/21/24 16:00 110 H 05/21/24 16:00 108 H 28 H 175/67 H 93 L Nasal Cannula 05/21/24 16:00 Nasal Cannula 05/21/24 16:00 97.5 F L 108 H 24 175/67 H 88 L Nasal Cannula 05/21/24 15:00 Nasal Cannula 05/21/24 14:00 111 H 26 H 114/64 92 L Nasal Cannula 05/21/24 13:00 Nasal Cannula 05/21/24 12:00 112 H 23 113/56 L Nasal Cannula 05/21/24 12:00 120 H 05/21/24 11:25 103 H 05/21/24 11:25 107 H 05/21/24 11:00 Nasal Cannula 05/21/24 10:09 88 L Room Air 05/21/24 10:00 110 H 22 130/63 94 L Nasal Cannula 05/21/24 09:00 Nasal Cannula O2 Flow Rate 05/22/24 07:33 3 05/22/24 06:34 3 05/22/24 06:08 05/22/24 06:08 05/22/24 06:08 3 05/22/24 06:00 3 05/22/24 05:00 3 05/22/24 04:00 3 05/22/24 04:00 3 05/22/24 04:00 05/22/24 04:00 05/22/24 03:00 3 05/22/24 01:00 3 05/22/24 00:00 05/22/24 00:00 3 05/22/24 00:00 05/21/24 23:21 05/21/24 23:11 05/21/24 23:11 3 05/21/24 23:00 3 05/21/24 22:00 3 05/21/24 21:00 3 05/21/24 20:00 05/21/24 20:00 05/21/24 20:00 3 05/21/24 20:00 3 05/21/24 18:43 3 05/21/24 18:40 05/21/24 18:40 3 05/21/24 18:28 05/21/24 18:00 3 05/21/24 17:00 5 05/21/24 16:00 05/21/24 16:00 3 05/21/24 16:00 5 05/21/24 16:00 3 05/21/24 15:00 5 05/21/24 14:00 3 05/21/24 13:00 3 05/21/24 12:00 3 05/21/24 12:00 05/21/24 11:25 05/21/24 11:25 05/21/24 11:00 3 05/21/24 10:09 05/21/24 10:00 3 05/21/24 09:00 3 Intake and Output 05/21/24 05/22/24 05/22/24 19:59 03:59 11:59 Intake Total 380 / 380 Output Total 900 / 2200 0 / 2200 1300 / 2200 Balance -520 / -1820 0 / -1820 -1300 / -1820 Intake: Intake, Oral Amount 380 / 380 Output: Output, Urine Amount 900 / 2200 0 / 2200 1300 / 2200 Other: Number of Unmeasured Voids 0 1 0 Number of Bowel Movements 1 1 Weight 107 lb 14.025 oz Patient Weight 05/22/24 11:59 Weight 107 lb 14.025 oz I & O for Labs for Last 24 Hours: Intake & Output 05/19/24 05/20/24 05/21/24 05/22/24 11:59 11:59 11:59 11:59 Intake Total 830 / 830 2836 / 2836 2624 / 2624 380 / 380 Output Total 1050 / 1050 2070 / 2770 2800 / 2800 2200 / 2200 Balance -220 / -220 766 / 66 -176 / -176 -1820 / -1820 Weight 112 lb 4.8 oz 112 lb 1.6 oz 110 lb 1.6 oz 107 lb 14.025 oz Microbiology Reports for the Last 24 Hours: Microbiology 05/13/24 09:20 Sputum - Expectorated Sputum Gram Stain - Final 05/13/24 09:20 Sputum - Expectorated Sputum Sputum Culture - Final Pseudomonas aeruginosa Constitutional: Present no acute distress and thin (Sitting up in the bed eating his breakfast) Respiratory: Present rhonchi (Bilateral coarse rhonchi posteriorly. Congestive cough.) Cardiac: Present Reg Rate and Rhythm GI: Present soft and normal bowel sounds; Absent distention or tenderness Extremities: Absent tenderness or edema Neuro: Present alert, awake and oriented x 3 Assessment and Plan *Assessment and plan (1) Malignant pleural effusion: Status: Acute Category: Medical Code(s): J91.0 - Malignant pleural effusion (2) Chest tube in place: Status: Acute Category: Medical Code(s): Z96.89 - Presence of other specified functional implants (3) Pneumonia: Status: Acute Category: Medical Code(s): J18.9 - Pneumonia, unspecified organism (4) Acute hypoxemic respiratory failure: Status: Acute Category: Medical Code(s): J96.01 - Acute respiratory failure with hypoxia (5) Pleural effusion on right: Status: Acute Category: Medical Code(s): J90 - Pleural effusion, not elsewhere classified (6) Primary lung cancer: Status: Acute Category: Medical Code(s): C34.90 - Malignant neoplasm of unspecified part of unspecified bronchus or lung (7) Glaucoma of right eye: Status: Acute Category: Medical Code(s): H40.9 - Unspecified glaucoma (8) Severe protein-calorie malnutrition: Status: Acute Category: Medical Code(s): E43 - Unspecified severe protein-calorie malnutrition (9) Severe muscle deconditioning: Status: Acute Category: Medical Code(s): R29.898 - Other symptoms and signs involving the musculoskeletal system (10) Malignant neoplasm of right upper lobe of lung: Status: Acute Category: Medical Code(s): C34.11 - Malignant neoplasm of upper lobe, right bronchus or lung (11) COPD mixed type: Status: Chronic Category: Medical Code(s): J44.9 - Chronic obstructive pulmonary disease, unspecified Plan Patient can be discharged today once oxygen is in place. He will need to continue cefepime 1 g IV every 8 hours with a stop date of 05/24/2024.
--- NOTE | 2024-05-22 09:46 | EXP.PULM.PN ---
Subjective *Date: 05/22/24 *Time: 15:42 Interval history: No acute respiratory events overnight. Patient denies any new respiratory complaints Pulmonology Exam Inpatient Vital signs and Labs for Last 24 Hours: Temp Pulse Resp BP Pulse Ox O2 Del Method O2 Flow Rate 97.8 F 101 H 18 97/57 L 95 Nasal Cannula 3 05/22/24 08:00 05/22/24 06:08 05/22/24 06:00 05/22/24 06:00 05/22/24 06:08 05/22/24 07:33 05/22/24 07:33 FiO2 40 05/19/24 08:13 Temp Pulse Resp BP Pulse Ox O2 Del Method O2 Flow Rate 97.9 F 115 H 21 115/60 90 L Nasal Cannula 3 05/13/24 08:00 05/13/24 08:00 05/13/24 08:00 05/13/24 08:00 05/13/24 08:00 05/13/24 09:00 05/13/24 09:00 Laboratory Results - last 24 hr 05/12/24 06:51: Urine Color Yellow, Urine Appearance Clear, Urine pH 7.0, Ur Specific [place] 1.015, Urine Protein Negative, Urine Glucose (UA) Negative, Urine Ketones Negative, Urine Blood Negative, Urine Nitrate Negative, Urine Bilirubin Negative, Urine Urobilinogen 1.0, Ur Leukocyte Esterase Negative, Urine RBC None, Urine WBC 3-5, Ur Squamous Epith Cells Occasional, Urine Bacteria None 05/12/24 09:41: PT 11.1, INR 1.01, Troponin I < 0.01 05/12/24 11:45: Lactate 1.7, Troponin I < 0.01 I & O for Labs for Last 24 Hours: Intake & Output 05/19/24 05/20/24 05/21/24 05/22/24 23:59 23:59 23:59 23:59 Intake Total 1040 / 1040 3440 / 4620 1800 / 1800 540 / 540 Output Total 1200 / 2270 2370 / 2370 3000 / 3000 1300 / 1300 Balance -160 / -1230 1070 / 2250 -1200 / -1200 -760 / -760 Weight 112 lb 4.8 oz 112 lb 1.6 oz 110 lb 1.6 oz 107 lb 14.025 oz Intake & Output 05/10/24 05/11/24 05/12/24 01/20/25 23:59 23:59 23:59 23:59 Intake Total 790 / 790 Output Total 650 / 1050 1075 / 1075 Balance 140 / -260 -1075 / -1075 Weight 116 lb 0.998 oz 116 lb 3.2 oz Microbiology Reports for the Last 24 Hours: Microbiology 05/13/24 09:20 Sputum - Expectorated Sputum Gram Stain - Final 05/13/24 09:20 Sputum - Expectorated Sputum Sputum Culture - Final Pseudomonas aeruginosa Microbiology 05/12/24 07:07 Blood Blood Culture - Preliminary NO GROWTH AFTER 24 HOURS 05/12/24 07:08 Blood Blood Culture - Preliminary NO GROWTH AFTER 24 HOURS Constitutional: Present moderate distress Head: Present normocephalic and atraumatic ENT: Present normal exam, normal oropharynx and mucous membranes moist Neck: Present normal inspection and full ROM Respiratory: Present respiratory distress, rhonchi, diminished air movement and able to speak in complete sentences; Absent wheezes or crackles Cardiac: Present S1/S2, Tachycardia and radial pulses present GI: Present soft and distention; Absent tenderness or guarding Skin: Present intact; Absent cyanosis or jaundice Neuro: Present alert, awake and oriented x 3 Extremities: Present normal inspection; Absent clubbing or cyanosis Psychiatric: Present normal affect and cooperative Assessment and Plan *Assessment and plan (1) Acute hypoxemic respiratory failure: Status: Acute Category: Medical Code(s): J96.01 - Acute respiratory failure with hypoxia (2) Pleural effusion on right: Status: Acute Category: Medical Code(s): J90 - Pleural effusion, not elsewhere classified (3) Pneumonia: Status: Acute Category: Medical Code(s): J18.9 - Pneumonia, unspecified organism (4) Pneumothorax: Status: Acute Category: Medical Code(s): J93.9 - Pneumothorax, unspecified (5) Malignant pleural effusion: Status: Acute Category: Medical Code(s): J91.0 - Malignant pleural effusion Plan Mr. Magallon is a 76-year-old male, COPD lung cancer presented to the ER with worsening respiratory distress found to have a large right pleural effusion and increasing oxygen requirements and pulmonary was called for further evaluation and management. Afebrile. Hemodynamically stable. Mild neutrophilic predominant leukocytosis upon admission improving. CTA upon admission no evidence of pulmonary embolism. Large right pleural effusion. Concerning worsening size of the nodular opacity in the right upper lobe from February 2024. CT also noted bilateral groundglass opacities concerning for pneumonia On initial examination patient admits gradually worsening respiratory distress. No known sick contacts but denies any worsening cough or any productive phlegm. Status post thoracentesis with removal of 272 0 cc of blood-tinged pleural fluid. Pneumothorax status post chest tube placement. No significant change in the pneumothorax for 36 hours status post chest tube clamping. Heimlich valve was placed yesterday. Repeat chest X morning concerning for worsening pneumothorax. Pleural fluid cytology resulted positive for malignancy consistent with patient's prior pulmonary adenocarcinoma. CT PE, bilateral worsening consolidative changes left greater than right. Near complete resolution of the noted pneumothorax. No obvious evidence of large proximal occlusive pulmonary embolism. Complains of respiratory viral PCR panel negative Interval update: Repeat sputum cultures growing Pseudomonas intermediate sensitive to levofloxacin. No acute respiratory vents overnight. Currently receiving Zosyn every 6 hours. Pending PICC line placement and home health for home IV antibiotics. Plan to discharge home on cefepime 1gm IV every 8 hours to complete a total of 7-day course with a stop date of 05/24/2023 Plan: Oxygen supplementation supplementation via nasal cannula to maintain O2 saturation goal of 90% Continue cefepime 1 g IV every 8 hours for a total of 7 days with a stop date of 05/24/2023 DuoNebs every 6 hours along with Pulmicort every 12 scheduled, can be discharged home on home Trelegy 100 inhaler
[2024-05-22] MEDS: GABAPENTIN 600MG TABLET 600 MG PO (10:10)
[2024-05-22] MEDS: PRO-STAT AWC 30ML LIQUID PACKET 30 ML PO (10:10)
[2024-05-22] MEDS: MEGESTROL ACETATE 400 MG/10 ML PO (10:10)
[2024-05-22] MEDS: DEXAMETHASONE 4MG TABLET 4 MG PO (10:11)
--- NOTE | 2024-05-23 10:29 | SW/DCPLANNER ---
Spoke with patients on the phone. Patients stated that he is doing good just moving a little slow and gets tired very easy. Patients stated that they are aware of his upcoming appointments. Patients stated that she was able to get his new medicine picked up at clinic pharmacy. Patients stated that she has no concerns or questions at this time. Alejandro Coughlin
--- NOTE | 2024-05-27 23:15 | EXP.DC.SUM ---
General Admission date:: 05/12/24 Discharge date: 05/22/24 HPI HPI HPI: 68-year-old male with known adenocarcinoma of the right lung presents to the ER for concerns of shortness of breath. Patient reports he has had notable shortness of breath since Monday, 2 days ago. Patient reports he went to oncology this week (Dr. Mahmood, [facility]) as scheduled but due to his high heart rate and congestion they did not perform his normal immunotherapy treatment and he was told to come back in 1 week for reevaluation. Reportedly he had an EKG done at that appointment. He has continued being short of breath, and contacted Dr. Lanza this morning and was instructed to come to the ER to be evaluated for possible pneumonia. Patient denies fevers, chills, productive cough, vomiting, diarrhea, or other associated symptoms. He denies any headache, numbness, tingling, or weakness. He does not have a history of cardiac abnormality, he does not take a diuretic. Review of previous records demonstrates a history of COPD. In the ER he was found to have a large right pleural effusion and possible pneumonia. Dr. Olivares, Pulmonology also follows the patient. He was contacted and plans to perform thoracentesis according to the ER provider. CXR- 1. Hyperexpanded lung arceo consistent with COPD. Extensive honeycomb appearance in the left midlung and left base consistent with chronic lung changes. 2. Large right pleural effusion. 3. Consolidation in the right midlung and right base. Diffuse ground-glass opacities bilaterally. Findings may reflect pneumonia.. The patient has severe degenerative disease of the back, particularly LS spine. Hospital Course Hospital Course Hospital Course: The patient was admitted and pulmonology planned for thoracentesis. He was started on dexamethasone 4 mg twice daily and DuoNebs 3 times a day. He also received a dose of vancomycin and piperacillin in the emergency room. He was seen by pulmonology who performed a thoracentesis and removed 2720 cc of blood-tinged pleural fluid. Bactrim DS was initiated twice daily pending sputum and blood cultures. The patient developed a right pneumothorax and a right chest tube had to be placed. His breathing improved and he denied any shortness of breath. He did have some chest wall soreness due to chest tube insertion site. Chest x-ray following the chest tube showed a decrease in the pneumothorax and a persistent left perihilar airspace infiltrate. The chest tube was placed to waterseal on 05/14/2024. His pleural fluid was positive for malignancy and pulmonology spoke with hematology/oncology. He had a CT of the chest which showed a small right posterior sulcus pneumothorax. The chest tube was in place and was connected to a Heimlich valve. By 05/16/2024, the patient was complaining of right-sided chest pain. A repeat chest x-ray was ordered. It showed a worsening pneumothorax and the patient's chest tube was placed back to suction. A repeat chest x-ray showed no significant improvement therefore the chest tube was repositioned and connected back to suction. The repeat chest x-ray after repositioning showed significant improvement. The chest tube was placed on waterseal and not long after the patient had a decline in his respiratory status requiring high flow nasal oxygen. ABG showed worsening hypoxic respiratory failure. CT PE showed bilateral worsening consolidative changes left greater than the right and almost near complete resolution of the pneumothorax. There was no evidence of PE. His antibiotics were escalated to Zosyn and his chest tube was placed back to suction. His Vapotherm was able to be decreased to 25% on 05/18/2024. He was able to be weaned off of the Vapotherm onto nasal cannula. He did appear slightly dehydrated and was given IV fluids. By 05/20/2024, he was feeling better. His chest tube was clamped and physical therapy was ordered. His chest tube was removed on 05/21/2024 and a repeat chest x-ray showed slightly improved bilateral airspace infiltrates. His oxygen saturations were in the 90s on 3 L/min of nasal oxygen. He was able to get up and go to the bathroom and his bowels moved. Physical therapy worked with the patient and he was able to sit up in the chair for about an hour and take a few steps with assistance. They recommend longterm care. A repeat chest x-ray showed a concern for slight worsening of his infiltrates and pulmonology ordered 40 mg dose of IV Lasix once. His repeat blood cultures were growing Pseudomonas intermediately sensitive to Levaquin. He was started on cefepime 1 g IV every 8 hours and pulmonology felt he would need this for a total of 7 days. He also wanted him to have DuoNebs every 6 hours along with Pulmicort every 12 hours. He wanted him discharged home on a Trelegy inhaler. A PICC line was placed and the patient received his first dose of cefepime. The patient wanted to go home with home health and they will assist in dosing his cefepime every 8 hours until his antibiotics can be discontinued on 05/24/2024. He will need home oxygen to maintain an oxygen saturation goal of 90%. He will have f/u with Dr. Lanza, oncology, and pulmonology. Exam Data for Last 24 hours Vital signs and Labs for Last 24 Hours: Temp Pulse Resp BP Pulse Ox O2 Del Method O2 Flow Rate 97.8 F 103 H 20 125/67 95 Nasal Cannula 3 05/22/24 08:00 05/22/24 12:00 05/22/24 12:00 05/22/24 12:00 05/22/24 12:00 05/22/24 12:00 05/22/24 12:00 FiO2 40 05/19/24 08:13 Narrative: *Routine HEENT Exam Head: Present normocephalic Eye: Present EOMI and other (opacification of right cornea) ENT: Present mucous membranes dry *Routine Respiratory Exam Respiratory: Present decreased breath sounds (on right especially at the base) and able to speak in complete sentences; Absent respiratory distress, rhonchi, stridor or wheezes *Routine Cardiovascular Exam Cardiovascular: Present RRR and tachycardia; Absent murmur, gallop or rubs *Routine Abdominal Exam Abdominal: Present soft and normoactive bowel sounds; Absent tenderness, distended, rebound, guarding or mass *Routine Rectal Exam Rectal:: deferred *Routine Genitalia Exam Genitalia:: normal male DS: Diagnosis Discharge Diagnosis (1) Acute hypoxemic respiratory failure: Status: Resolved Code(s): J96.01 - Acute respiratory failure with hypoxia (2) Pleural effusion on right: Status: Resolved Code(s): J90 - Pleural effusion, not elsewhere classified (3) Pneumonia: Status: Acute Code(s): J18.9 - Pneumonia, unspecified organism (4) Pneumothorax: Status: Resolved Code(s): J93.9 - Pneumothorax, unspecified (5) Malignant pleural effusion: Status: Acute Code(s): J91.0 - Malignant pleural effusion Meds Home Medications and Allergies Home Medications ?Medication ?Instructions ?Recorded ?Confirmed ?Type diazepam 10 mg tablet 10 mg PO TIDP PRN Anxiety 09/25/23 05/27/24 History gabapentin 600 mg tablet 600 mg PO QID 09/25/23 05/27/24 History levocetirizine 5 mg tablet 5 mg PO DAILY 09/25/23 05/27/24 History oxycodone 5 mg tablet 5 mg PO Q6HP PRN Severe Pain 09/25/23 05/27/24 History (Scale Score 7-10) sulindac 200 mg tablet 200 mg PO BID 09/25/23 05/27/24 History megestrol 400 mg/10 mL (40 mg/mL) 400 mg (10 mL) PO DAILY #250 mL 09/28/23 05/27/24 Rx oral suspension tiotropium 2.5 mcg-olodaterol 2.5 2 puff inhalation DAILY 90 days #4 10/12/23 05/27/24 Rx mcg/actuation mist for inhalation grams (Stiolto Respimat) dexamethasone 4 mg tablet 4 mg PO BID #40 tabs 05/22/24 05/27/24 Rx New Prescriptions to Start Prescriptions: dexamethasone Clyde Lanza Allergies Allergy/AdvReac Type Severity Reaction Status Date / Time Iodinated Contrast Media Allergy Intermediate Hives Verified 05/08/24 09:58 Discharge Plan Disposition Patient Disposition: Home, Self-Care Condition: Good Discharge Order Discharge Orders: Discharge Order (Routine); Ordered 05/22/24 Ordered By: Clyde Lanza Follow up Plan Follow up with: Clyde Lanza MD [Primary Care Provider] - 05/30/24 2:15 pm Nimesh Mahmood MD [Staff Physician] - 05/29/24 10:00 am Prescriptions/Medication Reconciliation: New dexamethasone 4 mg Tablet 4 mg PO BID Qty: 40 1RF Continued Stiolto Respimat 2.5-2.5 mcg/actuation mist 2 puff inhalation DAILY 90 Days Qty: 4 2RF gabapentin 600 mg Tablet 600 mg PO QID diazepam 10 mg Tablet 10 mg PO TIDP PRN (Reason: Anxiety) sulindac 200 mg Tablet 200 mg PO BID oxycodone 5 mg Tablet 5 mg PO Q6HP PRN (Reason: Severe Pain (Scale Score 7-10)) levocetirizine 5 mg Tablet 5 mg PO DAILY megestrol 400 mg/10 mL (40 mg/mL) Suspension 400 mg PO DAILY Qty: 250 5RF Problem Reconciliation Problems Reviewed?: Yes Patient Discharge Instructions ACTIVITY: Limited activity DIET: regular diet Patient Instructions: DI for Pneumonia -- Adult, DI for Pneumothorax, DI for Thoracentesis, DI for Surgical Site Infection, DI for Pleural Effusion Print Language: [place] Providers Primary Care Provider: Clyde Lanza Admit Provider: Clyde Lanza Attending Provider: Clyde Lanza
== END 2024-05-22 12:10 | disposition home health service (06) | DRG 189 ==
LOC: ER 09:16 → 2ND 09:28 → ICU 05-17 12:24 → 2ND 05-19 15:10
PROVIDERS: Emergency Medicine; Internal Medicine Pulmonary Disease; Nurse Practitioner Family; Admitting Provider Family Medicine; Emergency Provider Emergency Medicine; PCP Family Medicine; Visit Provider Family Medicine
DX: J96.01 Acute respiratory failure with hypoxia (principal); J18.9 Pneumonia, unspecified organism; E43 Unspecified severe protein-calorie malnutrition; J90 Pleural effusion, not elsewhere classified; C34.11 Malignant neoplasm of upper lobe, right bronchus or lung; Z68.1 Body mass index [BMI] 19.9 or less, adult; J93.9 Pneumothorax, unspecified; H40.9 Unspecified glaucoma; F17.210 Nicotine dependence, cigarettes, uncomplicated; R59.0 Localized enlarged lymph nodes
CPT/HCPCS: 32555; 36410; 36415; 71045; 71046; 71250; 71275; 80048; 80053; 81001; 82042; 82803; 82945; 82962; 83605; 83615; 83880; 84155; 84484; 85007; 85014; 85018; 85025; 85048; 85049; 85378; 85610; 86140; 87040; 87070; 87077; 87186; 87205; 87633; 88112; 88305; 88342; 88360; 89051; 93005; 94640; 94760; 94761; 97110; 97163; 97166; 97530; 99285; J0692; J1200; J2543; J2919; J3370; J7050; J7120; J7620; J8540; Q9967

== ENCOUNTER 2024-05-27 14:08 | Inpatient (IN) | payer MEDICARE, SELFPAY ==
[2024-05-27 14:09] VITALS: BP 114/59; PULSE 88; RESP 18; TEMP 36.8; O2SAT 98; BMI 15.7
--- NOTE | 2024-05-27 14:11 | XR_ITS ---
FINAL REPORT CLINICAL HISTORY: fall, lateral pain FINDINGS: RIGHT FEMUR 2 views were obtained. There a subtle, nondisplaced fracture of the right greater trochanter. No other fractures identified. Visualized joint spaces are normally aligned. Soft tissues are unremarkable. IMPRESSION: Subtle, nondisplaced fracture of the right greater trochanter. Consider CT for further evaluation. Reviewed, Interpreted and Dictated by Regulo Schaeffer MD Transcribed by Viola Carmona Authenticated and [facility]
--- NOTE | 2024-05-27 14:11 | XR_ITS ---
FINAL REPORT CLINICAL HISTORY: fall, lateral pain FINDINGS: RIGHT HIP Two views of the right hip demonstrate a subtle, nondisplaced fracture of the greater trochanter. The left hip demonstrates a sclerotic appearance with irregularity of the articular surface. There is mild right hip joint space narrowing. No other fracture is identified. Soft tissues are unremarkable. IMPRESSION: Subtle, nondisplaced fracture of the greater trochanter. Consider CT for further evaluation. Reviewed, Interpreted and Dictated by Regulo Schaeffer MD Transcribed by Viola Carmona [facility]henticated and [facility]
--- NOTE | 2024-05-27 14:13 | ED_ITS ---
Discharge Plan Disposition Patient Disposition: Admitted Chief Complaint: Fall Prescriptions Prescriptions: No Action Stiolto Respimat 2.5-2.5 mcg/actuation mist 2 puff inhalation DAILY 90 Days Qty: 4 2RF dexamethasone 4 mg Tablet 4 mg PO BID Qty: 40 1RF gabapentin 600 mg Tablet 600 mg PO QID diazepam 10 mg Tablet 10 mg PO TIDP PRN (Reason: Anxiety) sulindac 200 mg Tablet 200 mg PO BID oxycodone 5 mg Tablet 5 mg PO Q6HP PRN (Reason: Severe Pain (Scale Score 7-10)) levocetirizine 5 mg Tablet 5 mg PO DAILY megestrol 400 mg/10 mL (40 mg/mL) Suspension 400 mg PO DAILY Qty: 250 5RF Referrals Follow up/Referrals: Fred Lanza MD [Primary Care Provider] - See instructions Clinical Impressions Clinical Impression: Unspecified trochanteric fracture of right femur, initial encounter for closed fracture Print Language Print Language: Turkish Discharge ED Provider: Jonathan Roberts General Adult HPI <ARMIDA Miles - Last Filed: 05/27/24 14:14> General Chief complaint: Fall Stated complaint: FALL, RIGHT HIP PAIN Time Seen by Provider: 05/27/24 14:11 Related Data Home Medications ?Medication ?Instructions ?Recorded ?Confirmed diazepam 10 mg tablet 10 mg PO TIDP PRN Anxiety 09/25/23 05/12/24 gabapentin 600 mg tablet 600 mg PO QID 09/25/23 05/12/24 levocetirizine 5 mg tablet 5 mg PO DAILY 09/25/23 05/12/24 oxycodone 5 mg tablet 5 mg PO Q6HP PRN Severe Pain 09/25/23 05/12/24 (Scale Score 7-10) sulindac 200 mg tablet 200 mg PO BID 09/25/23 05/12/24 Previous Rx's ?Medication ?Instructions ?Recorded megestrol 400 mg/10 mL (40 mg/mL) 400 mg (10 mL) PO DAILY #250 mL 09/28/23 oral suspension tiotropium 2.5 mcg-olodaterol 2.5 2 puff inhalation DAILY 90 days #4 10/12/23 mcg/actuation mist for inhalation grams (Stiolto Respimat) dexamethasone 4 mg tablet 4 mg PO BID #40 tabs 05/22/24 Allergies Allergy/AdvReac Type Severity Reaction Status Date / Time Iodinated Contrast Media Allergy Intermediate Hives Verified 05/08/24 09:58 <Jonathan Roberts MD - Last Filed: 05/27/24 15:45> History of Present Illness HPI narrative: Please note that above description of symptoms, in this electronic medical rec ord under categorization of recalled from ER triage doctor by RN are reflective of an initial nursing assessment, however, is not reflective of my full history and physical exam that was personally taken and clarified. Consequentially, this preceding description of symptoms, which may include the patient's categorized chief complaint in the EMR, do not reflect my personal clinical impression, and the ultimate description of history of present illness and patient stated complaints should be deferred to this section of the note. Unless stated otherwise or congruent with this section of the note, additional signs, symptoms, or incongruence should be interpreted as inaccurate with my clinical impression. [facility] <ARMIDA Miles - Last Filed: 05/27/24 14:14> [facility] Disclaimer: The information contained in this section may have been updated after the patient was seen, as this information can be updated by other users. Medical History (Updated 05/27/24 @ 15:45 by Jonathan Roberts MD) Acute esophageal obstruction Food impaction of esophagus Acute left-sided weakness Left sided numbness Malignant pleural effusion Pneumothorax Chest tube in place Primary lung cancer Pleural effusion on right Parotid nodule Pneumonia Dysphagia Dyspnea on exertion Lung cancer Tobacco abuse disorder COPD mixed type Mediastinal lymphadenopathy Hilar lymphadenopathy Multiple lung nodules on CT Smoking greater than 30 pack years Esophageal obstruction due to food impaction Surgical History History of colonoscopy History of eye surgery History of back surgery Family History Other Leukemia Lung cancer Social History (Updated 05/12/24 @ 10:04 by Noemy Yoo RN) Smoking Status: Never smoker how long ago did patient quit smokin weeks second hand exposure: Yes alcohol intake: never substance use type: denies use current occupational status: retired Travel in the last 8 weeks: None household members: spouse housing: house lives independently: No marital status: education level: high school service: No current occupational exposures/hazards: No caffeine: Yes firearms in home: No do you feel safe at home: Yes victim of physical abuse: No victim of emotional abuse: No victim of sexual abuse: No would you like helpful sources: No Have you lived/traveled outside [place] in past 30 days?: No Contact w/someone who lives/traveled outside US past 30 days?: No Exposure to someone with infectious disease in past 14 days?: No Do you have a fever (greater than 100.4 F or 38 C)?: No Have you tested positive for COVID-19: No Exposed to someone with COVID-19 in past 14 days?: No Do you have a sore throat?: No Do you have a cough?: No Do you have any weakness?: No Do you have any diarrhea?: No Are you experiencing any unusual bleeding?: No Do you have any muscle aches/pain?: No Do you have any abdominal pain?: No Are you experiencing loss of taste or smell?: No Other Medical History Have you received the Flu Vaccine for this season: No Have you received the Pneumonia Vaccine: No <ARMIDA Miles - Last Filed: 05/27/24 14:14> ROS Obtained: Yes Systems reviewed as appropriate & no additional complaints except as documented Physical Exam <ARMIDA iMles - Last Filed: 05/27/24 14:14> General General appearance: alert and in no apparent distress Head Head exam: atraumatic and normal inspection Eye Eye exam: Present normal appearance, PERRL and EOMI ENT ENT exam: Present normal exam, normal oropharynx and mucous membranes moist Neck Neck exam: Present normal inspection, full ROM and trachea midline; Absent lymphadenopathy Chest Chest inspection: Present normal inspection and symmetric chest wall rise Respiratory Respiratory exam: Present normal lung sounds bilaterally; Absent accessory muscle use Cardiovascular Cardiovascular exam: Present regular rate, normal rhythm, normal heart sounds, +S1 and +S2 Abdominal Exam Abdominal exam: Present soft and normal bowel sounds; Absent tenderness, guarding or rebound Extremities Exam Extremities exam: Present normal inspection and full ROM Neurological Exam Neurological exam: Present alert, oriented X3 and CN II-XII intact Psychiatric Psychiatric exam: Present normal affect and normal mood Skin Skin exam: Present warm, dry and normal color Lymphatic Lymphatic Findings: no adenopathy <Jonathan Roberts MD - Last Filed: 05/27/24 15:45> Extremities Exam Extremities exam: Present other (Tenderness right lower extremity, per MDM) Medical Decision Making <ARMIDA Miles - Last Filed: 05/27/24 14:14> Medical Records Screening: Per USPSTF and CDC recommendations, given the prevalence of disease in our region, it is our hospital?s policy to screen for HIV and viral Hepatitis for all patients aged 18 and over and those with ongoing risk factors. Vital Signs: 05/27/24 14:09 05/27/24 14:30 05/27/24 14:32 Temperature 98.3 F Temperature Source Oral Pulse Rate 104 H 110 H Pulse Rate [Left] 88 Respiratory Rate 18 Blood Pressure 119/62 106/60 L Blood Pressure [Right Arm] 114/59 L Blood Pressure Mean [Right Arm] 77 Blood Pressure Source [Right Arm] Automatic Cuff 02 Sat by Pulse Oximetry 98 95 95 Oxygen Delivery Method Nasal Cannula Nasal Cannula Nasal Cannula Oxygen Flow Rate (LPM) 3 Orders (Tests/Meds): ED MEDICATIONS Discontinued Medications Generic Name Dose Route Start Last Admin Trade Name Alex PRN Reason Stop Dose Admin Hydromorphone HCl 0.5 mg 05/27/24 14:11 05/27/24 14:24 Hydromorphone 2mg/Ml Syringe IV 05/27/24 14:12 0.5 mg ONCE ONE Administration Ketorolac Tromethamine 15 mg 05/27/24 14:11 05/27/24 14:23 Ketorolac 30mg/Ml Vial IV 05/27/24 14:12 15 mg ONCE ONE Administration Ondansetron HCl 4 mg 05/27/24 14:11 05/27/24 14:24 Ondansetron 4mg/2ml Vial IV 05/27/24 14:12 4 mg ONCE ONE Administration ORDERS Category Date Time Status CT bony pelvis Stat Cat Scan 05/27/24 15:01 Taken Femur XR right 2 views [XR femur RT 2V] Stat Exams 05/27/24 14:11 Taken Hip XR right minimum 2 views [XR hip RT 2-3V w/pelvis] Exams 05/27/24 14:11 Taken Stat Medical Decision Narrative: In summary patient is a [age, sex] who presents to the emergency department for evaluation of [complaint]. Patient is [hemodynamically stable/unstable] upon arrival, [febrile/afebrile]. [Unremarkable physical exam, nonfocal exam versus focal remarkable exam]. Differential diagnosis includes [DDx]. Initial workup will be conducted with [hematologic labs, imaging, respiratory swab, describe workup]. Initial interventions include [crystalloid bolus, medications, p.o. challenge, etc.] initial workup reviewed by me [hematologic labs are remarkable for... Imaging remarkable for... Urinalysis remarkable for]. Upon repeat evaluation [patient had acceptable resolution of symptoms, had persistent pain f or which additional interventions were conducted (describe interventions), tolerated p.o., was ambulatory, etc.]. Given this [patient is appropriate for discharge at this time and will be discharged with a prescription for... The case was discussed with hospital medicine regarding management and they will admit the patient their service for continued evaluation at this time... Etc.] Places where you can increase complexity: I informally interpreted the patient's chest x-ray or CT read and is remarkable for... Documenting what the lunchroom monitor shows with rate and rhythm Consideration of test but deferring. Ex: I considered chest x-ray on this patient however given that they have no oxygen requirement and are clear to auscultation all lung arceo will be deferred. Social determinants of health: Given that patient is undomiciled increases complexity. Given that patient has polysubstance abuse compounds all aspects of care <Jonathan Roberts MD - Last Filed: 05/27/24 15:45> Medical Records Medical records reviewed: Yes I reviewed the patient's medical records. Homero Inquiry Pt receiving controlled substance: No Homero was queried for this patient: No Vital Signs: 05/27/24 14:09 05/27/24 14:30 05/27/24 14:32 Temperature 98.3 F Temperature Source Oral Pulse Rate 104 H 110 H Pulse Rate [Left] 88 Respiratory Rate 18 Blood Pressure 119/62 106/60 L Blood Pressure [Right Arm] 114/59 L Blood Pressure Mean [Right Arm] 77 Blood Pressure Source [Right Arm] Automatic Cuff 02 Sat by Pulse Oximetry 98 95 95 Oxygen Delivery Method Nasal Cannula Nasal Cannula Nasal Cannula Oxygen Flow Rate (LPM) 3 Orders (Tests/Meds): ED MEDICATIONS Discontinued Medications Generic Name Dose Route Start Last Admin Trade Name Freq PRN Reason Stop Dose Admin Hydromorphone HCl 0.5 mg 05/27/24 14:11 05/27/24 14:24 Hydromorphone 2mg/Ml Syringe IV 05/27/24 14:12 0.5 mg ONCE ONE Administration Ketorolac Tromethamine 15 mg 05/27/24 14:11 05/27/24 14:23 Ketorolac 30mg/Ml Vial IV 05/27/24 14:12 15 mg ONCE ONE Administration Ondansetron HCl 4 mg 05/27/24 14:11 05/27/24 14:24 Ondansetron 4mg/2ml Vial IV 05/27/24 14:12 4 mg ONCE ONE Administration ORDERS Category Date Time Status CT bony pelvis Stat Cat Scan 05/27/24 15:01 Taken Femur XR right 2 views [XR femur RT 2V] Stat Exams 05/27/24 14:11 Taken Hip XR right minimum 2 views [XR hip RT 2-3V w/pelvis] Exams 05/27/24 14:11 Taken Stat Medical Decision Narrative: 68-year-old male history of hypertension, hyperlipidemia, lung cancer with malignant pleural effusion status post recent chest tube placement for drainage, cachexia presenting with fall. Patient was getting out of bed around 5 AM today, 2. He fell onto the floor while doing so. Did not hit his head. Fell right onto his right hip and has been having significant pain since. His helped him get in the bed, but has not been able to use the leg almost at all today, so came in with EMS for further evaluation. States that pain is moderate at rest, severe in intensity when moving the right hip at all. No knee or ankle pain. History was obtained via conversation with patient and EMS. On arrival, patient hemodynamically stable, alert, oriented x4, appropriate, GCS 15, moving all extremities spontaneously, pupils equal and reactive to light. Full physical exam performed and significant for well-appearing male no acute distress. Right lower extremity pulses and neurologic exam normal. Significant tenderness with internal rotation and lateral compression of hip at level of greater trochanter. No outward signs of abnormality. Moderate right inguinal fold tenderness. Differential includes fracture, sprain, strain, among others. Patient placed on continuous cardiac monitoring and continuous pulse ox with initial blood pressure 114/59, heart rate 88, saturation 98% on 3 L nasal cannula (baseline). Patient given Zofran and Dilaudid. Imaging was obtained and on independent interpretation, patient has intertrochanteric fracture right femur with nondisplacement. I contacted orthopedist on-call. Recommended inpatient admission, PT, OT, MRI of the right hip. These were ordered. I contacted patient's primary care provider who will admit patient for further workup and management. Because patient high risk for clinical decompensation, deemed appropriate for inpatient admission. Results were relayed to patient who voiced understanding and patient was agreeable to inpatient admission and management. Patient was admitted to the hospital for further definitive management. Rn Case Management disclaimer Much of this encounter note is an electronic entry level financial analyst spoken language to printed text. Electronic entry level financial analyst of the spoken language may permit errors. Although I have reviewed the note, some errors may still exist. Critical Care <Jonathan Roberts MD - Last Filed: 05/27/24 15:45> Critical Care Time Critical Care Time: No
[2024-05-27] MEDS: KETOROLAC 30MG/ML VIAL 15 MG IV (14:23)
[2024-05-27] MEDS: ONDANSETRON 4MG/2ML VIAL 4 MG IV (14:24)
[2024-05-27] MEDS: HYDROMORPHONE 2MG/ML SYRINGE 0.5 MG IV (14:24)
[2024-05-27 14:30] VITALS: BP 119/62; PULSE 104; O2SAT 95
[2024-05-27 14:32] VITALS: BP 106/60; PULSE 110; O2SAT 95
--- NOTE | 2024-05-27 14:36 | PC.NURSE ---
xray at bedside
--- NOTE | 2024-05-27 15:01 | CT_ITS ---
FINAL REPORT TECHNIQUE: Axial imaging of the pelvis was obtained without contrast.This study was performed with techniques to keep radiation doses as low as reasonably achievable, (ALARA). Individualized dose reduction technique using automated exposure control or adjustment of mA and/or kV according to the patient's size were employed. CLINICAL HISTORY: R intertrroch concern FINDINGS: Mildly comminuted, nondisplaced fracture of the superior right greater trochanter seen on coronal images 45-58 of series 1001. Femoral heads are located bilaterally. There is extensive sclerosis and fragmentation of the proximal left femur likely related to underlying avascular necrosis. There is streak artifact from fusion hardware bridging L4-5. IMPRESSION: Mildly comminuted, nondisplaced fracture of the superior right greater trochanter. Reviewed, Interpreted and Dictated by Regulo Schaeffer MD Transcribed by Viola Carmona Authenticated and [facility]
--- NOTE | 2024-05-27 15:51 | HMH.PHAINT1 ---
Pharmacy Intervention Comments: MEDICATION RECONCILIATION COMPLETED ON PATIENT USING EXTERNAL FILL HISTORY FROM PHARMACY AND DISCHARGE SUMMARY FROM PREVIOUS ADMISSION. -FLORIDALMA RUIZ, ROBIND
[2024-05-27 15:56] VITALS: BP 101/54; PULSE 98; RESP 20; TEMP 36.9; O2SAT 95
[2024-05-27 16:00] VITALS: BP 95/59; PULSE 101; RESP 18; O2SAT 95; BMI 16.1
--- NOTE | 2024-05-27 17:02 | XR_ITS ---
PROCEDURE INFORMATION: Exam: XR Chest Exam date and time: 05/27/2024 5:49 PM Age: 68 years old Clinical indication: Other: HX pneumothorax with effusion TECHNIQUE: Imaging protocol: Radiologic exam of the chest. Views: 2 views. COMPARISON: CR XR CHEST PORTABLE 05/21/2024 8:26 AM FINDINGS: Tubes, catheters and devices: Previous lateral right basilar chest tube removed. Lungs: Pulmonary hyperexpansion with diaphragmatic flattening consistent with COPD/emphysematous change. Extensive granulomatous calcifications again noted. Alveolar opacities in the left mid and basilar lung arceo consistent with pneumonia versus atelectasis or edema are slightly improved. Alveolar opacity in the right lung is increased consistent with compressive atelectasis, although elements of alveolar edema or pneumonitis are not excluded. Bilateral interstitial prominence which may reflect interstitial edema or interstitial pneumonitis. Pleural spaces: Chronic calcific pleural plaque in the lateral left basilar distribution again noted. No pneumothorax is identified. Moderate right-sided pleural effusion, increased. Heart/Mediastinum: Unremarkable. No cardiomegaly. Vasculature: Left upper extremity midline with tip in the axillary vein distribution is new since 05/21/2024. Bones/joints: Osteopenia. IMPRESSION: 1. No pneumothorax is identified. Previous lateral right basilar chest tube removed. 2. Moderate right-sided pleural effusion, increased. 3. Increased interstitial and alveolar densities in the right lung may largely be secondary to compressive atelectasis from pleural effusion although increased pulmonary edema or pneumonitis not excluded. 4. Alveolar opacities in the left mid and basilar distributions are mildly improved. 5. New left midline grossly well-positioned.
--- NOTE | 2024-05-27 17:05 | MR_ITS ---
PROCEDURE INFORMATION: Exam: MR Right Lower Extremity Joint Without Contrast; Hip Exam date and time: 05/27/2024 5:09 PM Age: 68 years old Clinical indication: Pain; Hip; Right; Additional info: Right hip pain TECHNIQUE: Imaging protocol: Magnetic resonance imaging of the right lower extremity joint without contrast. Exam focused on the hip. COMPARISON: 1. CT BONY PELVIS 05/27/2024 3:10 PM 2. CR XR HIP RT 2-3V W/PELVIS 05/27/2024 2:30 PM FINDINGS: Bones/joints: Minimally displaced transverse fracture of the greater trochanter again noted. Additional nondisplaced trabecular fracture plane is identified extending distally in the greater trochanter and then crossing the intertrochanteric medullary space to the lesser trochanter. 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 Mild-moderate associated osteoarthritic changes in the anterior superior joint space. Pubic symphysis demonstrates minor osteoarthritic changes without diastasis. SI joints demonstrate moderate osteoarthritic changes without diastasis. Chronic graft harvest site in the right posterosuperior iliac spine. Musculature: Moderate muscular swelling involving the right gluteus minimus, bilateral adductors, and right external hip rotators consistent with muscular strain with no focal tear or hematoma. Intraperitoneal space: Trace intrapelvic peritoneal free fluid is present. IMPRESSION: 1. Minimally displaced transverse fracture of the right greater trochanter again noted, demonstrating justin cortical breakage on comparison CT. 2. Additional nondisplaced trabecular fracture extending through the greater trochanter across the intertrochanteric medullary space into the lesser trochanter. No associated justin cortical breakage is seen along this distribution on CT. 3. Evidence of muscular strain with no high-grade myotendinous tear or hematoma. 4. 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 5. Trace intrapelvic peritoneal simple fluid.
--- NOTE | 2024-05-27 17:06 | EXP.HP ---
History of Present Illness *Admission Date: 05/27/24 *Reason for visit:: right hip injury *History of present illness: 68-year-old male has a history of lung cancer with malignant pleural effusion. He was recently hospitalized at [facility] with chest tube placement after thoracentesis and a pneumothorax. He returns to ER today after a fall. He was getting out of bed around 5 AM today, 2/3. He fell onto the floor while doing so. Did not hit his head. Fell right onto his right hip and has been having significant pain since. His helped him get in the bed, but has not been able to use the leg almost at all today, so he came in for evaluation. The pain is moderate at rest, severe in intensity when moving the right hip at all. No knee or ankle pain. On arrival, patient hemodynamically stable, alert, oriented x4, appropriate, GCS 15, moving all extremities spontaneously. Right lower extremity pulses and neurologic exam normal. Significant tenderness with internal rotation and lateral compression of hip at level of greater trochanter. No outward signs of abnormality. Moderate right inguinal fold tenderness. His initial blood pressure 114/59, heart rate 88, saturation 98% on 3 L nasal cannula (baseline). Patient was given Zofran and Dilaudid. In the ER the x-ray was read as intertrochanteric fracture right femur with nondisplacement. He was admitted with this diagnosis. BUT REVIEW OF THE X-RAY AND RADIOLOGIST'S REPORT SHOWS A subtle greater trochanteric fracture. The ER contacted Dr. Acharya, orthopedic surgeon, who recommended further evaluation including MRI of the right hip. [facility] Disclaimer: The information contained in this section may have been updated after the patient was seen, as this information can be updated by other users. Medical History (Updated 05/27/24 @ 17:23 by Clyde Lanza MD) Fracture of greater trochanter of right femur Acute esophageal obstruction Food impaction of esophagus Acute left-sided weakness Left sided numbness Malignant pleural effusion Pneumothorax Chest tube in place Primary lung cancer Pleural effusion on right Parotid nodule Pneumonia Dysphagia Dyspnea on exertion Lung cancer Tobacco abuse disorder COPD mixed type Mediastinal lymphadenopathy Hilar lymphadenopathy Multiple lung nodules on CT Smoking greater than 30 pack years Esophageal obstruction due to food impaction Surgical History History of colonoscopy History of eye surgery History of back surgery Family History Other Leukemia Lung cancer Social History (Updated 05/12/24 @ 10:04 by Noemy Yoo RN) Smoking Status: Never smoker how long ago did patient quit smokin weeks second hand exposure: Yes alcohol intake: never substance use type: denies use current occupational status: retired Travel in the last 8 weeks: None household members: spouse housing: house lives independently: No marital status: education level: high school service: No current occupational exposures/hazards: No caffeine: Yes firearms in home: No do you feel safe at home: Yes victim of physical abuse: No victim of emotional abuse: No victim of sexual abuse: No would you like helpful sources: No Have you lived/traveled outside [place] in past 30 days?: No Contact w/someone who lives/traveled outside US past 30 days?: No Exposure to someone with infectious disease in past 14 days?: No Do you have a fever (greater than 100.4 F or 38 C)?: No Have you tested positive for COVID-19: No Exposed to someone with COVID-19 in past 14 days?: No Do you have a sore throat?: No Do you have a cough?: No Do you have any weakness?: No Do you have any diarrhea?: No Are you experiencing any unusual bleeding?: No Do you have any muscle aches/pain?: No Do you have any abdominal pain?: No Are you experiencing loss of taste or smell?: No Other Medical History Have you received the Flu Vaccine for this season: No Have you received the Pneumonia Vaccine: Yes Review of Systems Review of Systems Review of systems:: pertinent systems reviewed and negative unless documented below Constitutional Constitutional: Reports as per HPI and Reports weight loss Eyes Eyes: Reports as per HPI (Blindness OD due to glaucoma) and Reports loss of vision (OD due to glaucoma) ENT Ears, Nose, Mouth, and Throat: Reports system reviewed and no additional complaints, except as documented and Denies dysphagia *Cardiovascular Cardiovascular: Reports as per HPI *Respiratory Respiratory: Reports as per HPI *Gastrointestinal Gastrointestinal: Denies dysphagia *Genitourinary Genitourinary: Reports system reviewed and no additional complaints, except as documented *Musculoskeletal Musculoskeletal: Reports system reviewed and no additional complaints, except as documented Integumentary/Breasts Skin/Breast: Reports skin ulcer (sacral decubitus) *Neurologic Neurologic: Reports system reviewed and no additional complaints, except as documented and Reports loss of vision (OD due to glaucoma) Psychiatric Psychiatric: Reports system reviewed and no additional complaints, except as documented Endocrine Endocrine: Reports system reviewed and no additional complaints, except as documented Hematologic/Lymphatic Hematologic/Lymphatic: Reports system reviewed and no additional complaints, except as documented Allergic/Immunologic Allergic/Immunologic: Reports system reviewed and no additional complaints, except as documented Meds Home Medications and Allergies Home Medications ?Medication ?Instructions ?Recorded ?Confirmed ?Type diazepam 10 mg tablet 10 mg PO TIDP PRN Anxiety 09/25/23 05/27/24 History gabapentin 600 mg tablet 600 mg PO QID 09/25/23 05/27/24 History levocetirizine 5 mg tablet 5 mg PO DAILY 09/25/23 05/27/24 History oxycodone 5 mg tablet 5 mg PO Q6HP PRN Severe Pain 09/25/23 05/27/24 History (Scale Score 7-10) sulindac 200 mg tablet 200 mg PO BID 09/25/23 05/27/24 History megestrol 400 mg/10 mL (40 mg/mL) 400 mg (10 mL) PO DAILY #250 mL 09/28/23 05/27/24 Rx oral suspension tiotropium 2.5 mcg-olodaterol 2.5 2 puff inhalation DAILY 90 days #4 10/12/23 05/27/24 Rx mcg/actuation mist for inhalation grams (Stiolto Respimat) dexamethasone 4 mg tablet 4 mg PO BID #40 tabs 05/22/24 05/27/24 Rx New Prescriptions to Start Prescriptions: Allergies Allergy/AdvReac Type Severity Reaction Status Date / Time Iodinated Contrast Media Allergy Intermediate Hives Verified 05/08/24 09:58 Exam Data for Last 24 hours Vital signs and Labs for Last 24 Hours: Temp Pulse Resp BP Pulse Ox O2 Del Method O2 Flow Rate 98.5 F 101 H 18 95/59 L 95 Room Air 3 05/27/24 15:56 05/27/24 16:00 05/27/24 16:00 05/27/24 16:00 05/27/24 16:00 05/27/24 16:05/27/24 15:56 I & O for Last 24 hours: Intake & Output 05/25/24 05/26/24 05/27/24 05/28/24 11:59 11:59 11:59 11:59 Output Total 0 / 0 Balance 0 / 0 Weight 106 lb 6 oz Constitutional Constitutional: no acute distress and cachectic *Routine HEENT Exam Head: Present normocephalic Eye: Present other (Opacification of the right cornea due to glaucoma) ENT: Present mucous membranes moist *Routine Neck Exam Neck: Present supple and full ROM Routine Chest/Breast/Axilla Exam Chest wall: Absent tenderness *Routine Respiratory Exam Respiratory: Present decreased breath sounds (But moving air bilaterally including on the right side where there was previous effusion and pneumothorax) *Routine Cardiovascular Exam Cardiovascular: Present RRR *Routine Abdominal Exam Abdominal: Present soft; Absent tenderness or distended *Routine Rectal Exam Rectal:: deferred *Routine Genitalia Exam Genitalia:: deferred *Routine Extremities Exam Extremities: Present full ROM (Pain in the right hip with movement. No leg length discrepancy or rotation.), pulses intact and normal capillary refill; Absent edema Routine Back/Spine/Pelvis Exam Back/Spine: Absent CVA tenderness Pelvis: Present sacral tenderness (Sacral decubitus healing in with granulation tissue) *Routine Skin Exam Skin: Present wounds (Sacral decubitus) *Routine Neurological Exam Neurological: Present alert, oriented X3 and CN II-XII intact Routine Psychiatric Exam Psychiatric: Present normal affect and cooperative Assessment and Plan *Assessment and plan (1) Fracture of greater trochanter of right femur: Status: Acute Category: Medical Code(s): S72.111A - Displaced fracture of greater trochanter of right femur, initial encounter for closed fracture (2) Primary lung cancer: Status: Acute Category: Medical Code(s): C34.90 - Malignant neoplasm of unspecified part of unspecified bronchus or lung (3) Glaucoma of right eye: Status: Acute Category: Medical Code(s): H40.9 - Unspecified glaucoma (4) Severe protein-calorie malnutrition: Status: Acute Category: Medical Code(s): E43 - Unspecified severe protein-calorie malnutrition (5) COPD mixed type: Status: Chronic Category: Medical Code(s): J44.9 - Chronic obstructive pulmonary disease, unspecified (6) Smoking greater than 30 pack years: Status: Chronic Category: Social Hx Code(s): F17.210 - Nicotine dependence, cigarettes, uncomplicated Plan Patient receiving MRI. Chest x-ray will be checked. Dr. Acharya is aware of the patient's admission.
[2024-05-27] MEDS: IPRATROPIUM/ALBUTEROL 3 ML NEB IH (18:17)
--- NOTE | 2024-05-27 18:18 | P.CONS_ITS ---
<Statement entered by Art Acharya DO - 05/27/24 23:23> Patient with subtle findings on CT with greater trochanteric fracture, but fracture pattern and clinical picture did not match. Therefore MRI of the hip was obtained. There is indeed extension of the fracture into the lesser trochanter and is an intertroch fracture. Patient will therefore require stabilizaiton with cepahalomedullary nailing of his femur. He is at very high risk for complications in the perioperative period given his cancer diagnosis and recent decompenstion in breathing. However to be able to bear weight and not be on bedrest operative intervention is warranted. 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 This is certainly not an optimal situation but cephamedullary nailing will allow for weight bearing. PROPOSED SURGERY: Cephamedullary nailing right proximal femur The risks and benefits of the proposed surgery were discussed in depth with the patient. Potential complications including inherent risk of anesthesia, infection, neurovascular damage, DVT, and real potential loss of limb or life were all reviewed. History of Present Illness *Admission Date: 05/27/24 *History of present illness: This is a 68-year-old male has a history of lung cancer with malignant pleural effusion, hospitalized recently at [facility] with chest tube placement after thoracentesis and a pneumothorax. He returns to ER today after a fall this morning onto his right hip with significant pain and inability to ambulate. The pain is moderate at rest, severe in intensity when moving the right hip at all. Walks without device at baseline. Lives at home with his . No knee or ankle pain. Denies CP, SOB, parestehsias. [facility] Disclaimer: The information contained in this section may have been updated after the patient was seen, as this information can be updated by other users. Medical History (Updated 05/27/24 @ 18:32 by ARMIDA Walton) Fracture of greater trochanter of right femur Acute esophageal obstruction Food impaction of esophagus Acute left-sided weakness Left sided numbness Malignant pleural effusion Pneumothorax Chest tube in place Primary lung cancer Pleural effusion on right Parotid nodule Pneumonia Dysphagia Dyspnea on exertion Lung cancer Tobacco abuse disorder COPD mixed type Mediastinal lymphadenopathy Hilar lymphadenopathy Multiple lung nodules on CT Smoking greater than 30 pack years Esophageal obstruction due to food impaction Surgical History History of colonoscopy History of eye surgery History of back surgery Family History Other Leukemia Lung cancer Social History (Updated 05/12/24 @ 10:04 by Noemy Yoo RN) Smoking Status: Never smoker how long ago did patient quit smokin weeks second hand exposure: Yes alcohol intake: never substance use type: denies use current occupational status: retired Travel in the last 8 weeks: None household members: spouse housing: house lives independently: No marital status: education level: high school service: No current occupational exposures/hazards: No caffeine: Yes firearms in home: No do you feel safe at home: Yes victim of physical abuse: No victim of emotional abuse: No victim of sexual abuse: No would you like helpful sources: No Have you lived/traveled outside [place] in past 30 days?: No Contact w/someone who lives/traveled outside [place] past 30 days?: No Exposure to someone with infectious disease in past 14 days?: No Do you have a fever (greater than 100.4 F or 38 C)?: No Have you tested positive for COVID-19: No Exposed to someone with COVID-19 in past 14 days?: No Do you have a sore throat?: No Do you have a cough?: No Do you have any weakness?: No Do you have any diarrhea?: No Are you experiencing any unusual bleeding?: No Do you have any muscle aches/pain?: No Do you have any abdominal pain?: No Are you experiencing loss of taste or smell?: No Review of Systems Eyes Eyes: Reports loss of vision (OD due to glaucoma) *Neurologic Neurologic: Reports system reviewed and no additional complaints, except as documented and Reports loss of vision (OD due to glaucoma) Meds Home Medications and Allergies Home Medications ?Medication ?Instructions ?Recorded ?Confirmed ?Type diazepam 10 mg tablet 10 mg PO TIDP PRN Anxiety 09/25/23 05/27/24 History gabapentin 600 mg tablet 600 mg PO QID 09/25/23 05/27/24 History levocetirizine 5 mg tablet 5 mg PO DAILY 09/25/23 05/27/24 History oxycodone 5 mg tablet 5 mg PO Q6HP PRN Severe Pain 09/25/23 05/27/24 History (Scale Score 7-10) sulindac 200 mg tablet 200 mg PO BID 09/25/23 05/27/24 History megestrol 400 mg/10 mL (40 mg/mL) 400 mg (10 mL) PO DAILY #250 mL 09/28/23 05/27/24 Rx oral suspension tiotropium 2.5 mcg-olodaterol 2.5 2 puff inhalation DAILY 90 days #4 10/12/23 05/27/24 Rx mcg/actuation mist for inhalation grams (Stiolto Respimat) dexamethasone 4 mg tablet 4 mg PO BID #40 tabs 05/22/24 05/27/24 Rx New Prescriptions to Start Prescriptions: Allergies Allergy/AdvReac Type Severity Reaction Status Date / Time Iodinated Contrast Media Allergy Intermediate Hives Verified 05/08/24 09:58 Ortho Exam (Inpt) Vital signs and Labs for Last 24 Hours: Temp Pulse Resp BP Pulse Ox O2 Del Method O2 Flow Rate 98.5 F 101 H 18 95/59 L 95 Room Air 3 05/27/24 15:56 05/27/24 16:00 05/27/24 16:00 05/27/24 16:00 05/27/24 16:00 05/27/24 16:00 05/27/24 15:56 I & O for Labs for Last 24 Hours: Intake & Output 05/24/24 05/25/24 05/26/24 05/27/24 23:59 23:59 23:59 23:59 Output Total 0 / 0 Balance 0 / 0 Weight 48.251 kg Additional findings:: RLE: + TTP over lateral thigh. No open skin. +NVID with <2 sec cap refill at toes, + SILT 1st DWS/PA, +motor EHL/FHL/GS/TA. Calves SNT. MRI of R hip done today shows bone edema consistent with nondisplaced intertrochanteric fracture of RLE. CT of R hip done today shows mildly comminuted, nondisplaced fracture of the superior right greater trochanter. Results Labs Labs: All other labs normal. Assessment and Plan *Assessment and plan (1) Closed intertrochanteric fracture of right femur: Status: Acute Category: Medical Code(s): S72.141A - Displaced intertrochanteric fracture of right femur, initial encounter for closed fracture Plan NWB to RLE, bedrest. Will d/w medical team the planning for medical optimization considering recent hospitalization for lung cancer sequelae Pain control PRN medical team NPO after MN Ancef 1 g OCTOR DVT ppx Ice to R hip PRN pain [facility], CBC, T&S, INR ordered Will continue to follow. THank you for this consult.
[2024-05-27] MEDS: 0.9 % SODIUM CHLORIDE 1000ML 1,000 ML 125 ML IV (18:19)
[2024-05-27] MEDS: OXYCODONE 5MG IMMEDIATE RELEASE TABLET 5 MG PO (18:19)
[2024-05-27] MEDS: GABAPENTIN 600MG TABLET 600 MG PO ×2 (18:19→20:29)
[2024-05-27 19:18] LABS: Basophils % 0.2 % (0.1-2.0); Eosinophils # 0.2 K/mm3 (0.0-0.4); Eosinophils % 1.2 % (0.1-12.0); Hematocrit 33.2 % (42.0-52.0); Hemoglobin 11.2 g/dL (14.1-18.0); Lymphocytes # 0.4 K/mm3 (0.7-4.5); Lymphocytes % 2.3 % (10-50); Mean Corpuscular HGB Conc 33.7 g/dL (31.8-35.4); Mean Corpuscular Volume 94.9 fl (80-94); Mean Platelet Volume 9.4 fl (7.4-10.4); Monocytes # 0.5 K/mm3 (0.1-1.0); Neutrophils # 16.1 K/mm3 (1.8-7.8); Neutrophils % 92.9 % (37.0-80.0); Platelet Count 309 K/mm3 (142-424); Red Cell Distribution Width 14.3 % (11.5-17.5); White Blood Count 17.4 K/mm3 (4.8-10.8)
[2024-05-27 19:28] LABS: Chloride 99 mmol/L (98-107); MANUAL DIFFERENTIAL MANUAL DIFFERENTIAL (MANUAL DIFF); Potassium 3.7 mmoL/L (3.5-5.1); Sodium 134 mmol/L (136-145)
[2024-05-27 19:31] LABS: Anion Gap 7.7 mEq/L (5-15); Blood Urea Nitrogen 18 mg/dl (9-20); Carbon Dioxide 31 mmol/L (22.0-30.0); Creatinine Clearance Estimated 47 mL/min (50-200); Estimated Glomerular Filt Rate 133 ml/min (>60); GFR (African American) 161 ML/MIN (>60)
[2024-05-27 19:32] LABS: Calcium 8.1 mg/dl (8.4-10.2); Glucose 102 mg/dl (74-100)
[2024-05-27 20:00] VITALS: BP 107/50; PULSE 92; RESP 16; TEMP 36.6; O2SAT 96
[2024-05-27] MEDS: DEXAMETHASONE 4MG TABLET 4 MG PO (20:29)
[2024-05-27] MEDS: HEPARIN SODIUM 5,000 UNIT/ML VIAL 4800 UNIT SUBCUT (20:29)
[2024-05-27 20:49] LABS: INR 0.99 (0.9-1.1); Prothrombin Time 10.9 seconds (9.2-12.1)
[2024-05-27 22:44] LABS: Eosinophils % 2 % (0-3); Monocytes % 2 % (2-9); Neutrophils % 96 % (42-76); Total Cells Counted 100
[2024-05-27 22:48] LABS: Stomatocytes 1+
[2024-05-27 22:49] LABS: Platelet Estimate Normal
[2024-05-28] VITALS (21 sets, daily range): BP systolic 110–134; BP diastolic 45–78; PULSE 68–117; RESP 15–20; TEMP 36.4–37.3; O2SAT 89–98; BMI 16.1
[2024-05-28] MEDS: OXYCODONE 5MG IMMEDIATE RELEASE TABLET 5 MG PO ×2 (01:16→21:56)
[2024-05-28] MEDS: 0.9 % SODIUM CHLORIDE 1000ML 1,000 ML 125 ML IV ×2 (02:21→09:51)
--- NOTE | 2024-05-28 05:05 | PC.NURSE ---
Alert and oriented. 3L NC throughout night. Lung sounds diminished. Complained of pain once, treated per mar. Patient has ask several times about when they are doing the surgery, patient did wake up wondering where he was in the night and stated he needed to get to [facility] for a surgery, reoriented patient. Call light in reach. Bed alarm on. NS @125.
--- NOTE | 2024-05-28 05:29 | PC.NURSE ---
Went into room to get consent signed for surgery today, patient is alert and oriented, patient stated I want to think more about it. This RN ask him if he was unsure and he continued to say I just want to think about it . Consent not signed at this time. Will get patient washed and ready in case he decides to go through with surgery.
[2024-05-28] MEDS: IPRATROPIUM/ALBUTEROL 3 ML NEB IH ×4 (05:56→23:01)
--- NOTE | 2024-05-28 08:14 | EXP.ACUTE.PN ---
Subjective *Date: 05/28/24 *Time: 08:14 Interval history: Patient states he did not sleep during the night. He states he has been hungry. He normally eats frequently throughout the day and night. Does have some pain in his right hip. He does not remember discussing possible surgery for today. He denies any shortness of breath and has minimal cough. He denies chest pain. He is voiding QS. Bowels are moving normally at home. Repeat chest x-ray on admission showed no pneumothorax. Moderate right side pleural effusion increased, interstitial increased interstitial and alveolar densities in the right lung may be largely secondary to compression atelectasis from pleural effusion although increased pulmonary edema or pneumonitis not excluded; alveola opacities in the left mid and bilateral basilar distributions are mildly improved MRI of the right hip: IMPRESSION: 1. Minimally displaced transverse fracture of the right greater trochanter again noted, demonstrating justin cortical breakage on comparison CT. 2. Additional nondisplaced trabecular fracture extending through the greater trochanter across the intertrochanteric medullary space into the lesser trochanter. No associated justin cortical breakage is seen along this distribution on CT. 3. Evidence of muscular strain with no high-grade myotendinous tear or hematoma. 4. 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 5. Trace intrapelvic peritoneal simple fluid. Medical Exam Vital signs and Labs for Last 24 Hours: Vital Signs Temp Pulse Pulse Resp BP BP Pulse Ox 05/28/24 06:43 05/28/24 05:57 82 05/28/24 05:57 84 05/28/24 05:57 91 L 05/28/24 05:00 05/28/24 04:00 97.6 F 103 H 18 132/61 96 05/28/24 03:00 05/28/24 00:53 05/27/24 23:00 05/27/24 20:46 05/27/24 20:00 97.9 F 92 H 16 107/50 L 96 05/27/24 20:00 05/27/24 19:11 05/27/24 18:59 05/27/24 17:00 05/27/24 16:00 101 H 18 95/59 L 95 05/27/24 15:56 98.5 F 98 H 20 101/54 L 05/27/24 14:32 110 H 106/60 L 95 05/27/24 14:30 104 H 119/62 95 05/27/24 14:20 05/27/24 14:09 98.3 F 88 18 114/59 L 98 O2 Del Method O2 Flow Rate 05/28/24 06:43 Nasal Cannula 3 05/28/24 05:57 05/28/24 05:57 05/28/24 05:57 Nasal Cannula 3 05/28/24 05:00 Nasal Cannula 3 05/28/24 04:00 Nasal Cannula 3 05/28/24 03:00 Nasal Cannula 3 05/28/24 00:53 Nasal Cannula 3 05/27/24 23:00 Nasal Cannula 3 05/27/24 20:46 Nasal Cannula 3 05/27/24 20:00 Nasal Cannula 3 05/27/24 20:00 Nasal Cannula 3 05/27/24 19:11 Nasal Cannula 2 05/27/24 18:59 Nasal Cannula 3 05/27/24 17:00 Nasal Cannula 3 05/27/24 16:00 Room Air 05/27/24 15:56 Nasal Cannula 3 05/27/24 14:32 Nasal Cannula 05/27/24 14:30 Nasal Cannula 05/27/24 14:20 Room Air 05/27/24 14:09 Nasal Cannula 3 Intake and Output 05/27/24 05/28/24 05/28/24 19:59 03:59 11:59 Output Total 0 / 0 200 / 200 0 / 200 Balance 0 / 0 -200 / -200 0 / -200 Output: Output, Urine Amount 0 / 0 200 / 200 0 / 200 Other: Number of Voids 0 Number of Unmeasured Voids 1 Weight 106 lb 6 oz 106 lb 6.4 oz Patient Weight 05/28/24 11:59 Weight 106 lb 6.4 oz Laboratory Results - last 24 hr 05/27/24 19:01: WBC 17.4 H, RBC 3.50 L, Hgb 11.2 L, Hct 33.2 L, MCV 94.9 H, MCH 32.0 H, MCHC 33.7, RDW 14.3, Plt Count 309, MPV 9.4, Neut % (Auto) 92.9 H, Lymph % (Auto) 2.3 L, [place] % (Auto) 3.0, Eos % (Auto) 1.2, Baso % (Auto) 0.2, Neut # (Auto) 16.1 H, Lymph # (Auto) 0.4 L, [place] # (Auto) 0.5, Eos # (Auto) 0.2, Baso # (Auto) 0.0, Total Counted 100, Neutrophils % (Manual) 96 H, Monocytes % (Manual) 2, Eosinophils % (Manual) 2, Platelet Estimate Normal, Stomatocytes 1+, PT 10.9, INR 0.99, Sodium 134 L, Potassium 3.7, Chloride 99, Carbon Dioxide 31 H, Anion Gap 7.7, BUN 18, Creatinine 0.60 L, Estimated Creat Clear 47, Estimated GFR 133, Est GFR ( Amer) 161, Glucose 102 H, Calcium 8.1 L, Blood Type A Positive, Antibody Screen Negative I & O for Labs for Last 24 Hours: Intake & Output 05/25/24 05/26/24 05/27/24 05/28/24 11:59 11:59 11:59 11:59 Output Total 200 / 200 Balance -200 / -200 Weight 106 lb 6.4 oz Constitutional: Present no acute distress and thin Respiratory: Present CTA bilaterally Cardiac: Present Reg Rate and Rhythm GI: Present soft and normal bowel sounds; Absent distention Extremities: Absent edema or calf tenderness Comment:: Patient is able to move right leg with much effort and discomfort. Neuro: Present alert, awake and oriented x 3 Assessment and Plan *Assessment and plan (1) Closed intertrochanteric fracture of right femur: Status: Acute Category: Medical Code(s): S72.141A - Displaced intertrochanteric fracture of right femur, initial encounter for closed fracture (2) Fracture of greater trochanter of right femur: Status: Acute Category: Medical Code(s): S72.111A - Displaced fracture of greater trochanter of right femur, initial encounter for closed fracture (3) Primary lung cancer: Status: Acute Category: Medical Code(s): C34.90 - Malignant neoplasm of unspecified part of unspecified bronchus or lung (4) Glaucoma of right eye: Status: Acute Category: Medical Code(s): H40.9 - Unspecified glaucoma (5) Severe protein-calorie malnutrition: Status: Acute Category: Medical Code(s): E43 - Unspecified severe protein-calorie malnutrition (6) COPD mixed type: Status: Chronic Category: Medical Code(s): J44.9 - Chronic obstructive pulmonary disease, unspecified (7) Smoking greater than 30 pack years: Status: Chronic Category: Social Hx Code(s): F17.210 - Nicotine dependence, cigarettes, uncomplicated Plan Repeat labs have been ordered for this a.m. He has IV fluids going at 125/hr. will consult with pulmonology. Further discussion with patient for possible surgery. Plan as per orthopedics as follows: NWB to RLE, bedrest. Will d/w medical team the planning for medical optimization considering recent hospitalization for lung cancer sequelae Pain control PRN medical team NPO after MN Ancef 1 g OCTOR DVT ppx Ice to R hip PRN pain [facility], CBC, T&S, INR ordered Will continue to follow. THank you for this consult.
[2024-05-28] MEDS: GABAPENTIN 600MG TABLET 600 MG PO ×3 (08:39→20:32)
[2024-05-28] MEDS: DEXAMETHASONE 4MG TABLET 4 MG PO ×2 (08:40→20:32)
[2024-05-28 08:59] LABS: Basophils % 0.1 % (0.1-2.0); Hematocrit 33.4 % (42.0-52.0); Hemoglobin 11.2 g/dL (14.1-18.0); Lymphocytes # 0.1 K/mm3 (0.7-4.5); Lymphocytes % 0.7 % (10-50); Mean Corpuscular HGB Conc 33.5 g/dL (31.8-35.4); Mean Corpuscular Hemoglobin 32.2 pg (27.0-31.2); Mean Platelet Volume 9.2 fl (7.4-10.4); Monocytes # 0.1 K/mm3 (0.1-1.0); Monocytes % 0.7 % (1.7-9.3); Neutrophils # 16.3 K/mm3 (1.8-7.8); Platelet Count 280 K/mm3 (142-424); Red Blood Count 3.48 M/mm3 (4.60-6.20); Red Cell Distribution Width 14.4 % (11.5-17.5); White Blood Count 16.6 K/mm3 (4.8-10.8)
[2024-05-28 09:06] LABS: Chloride 103 mmol/L (98-107); Sodium 135 mmol/L (136-145)
[2024-05-28 09:07] LABS: Potassium 4.4 mmoL/L (3.5-5.1)
[2024-05-28 09:10] LABS: Anion Gap 9.4 mEq/L (5-15); Blood Urea Nitrogen 17 mg/dl (9-20); Carbon Dioxide 27 mmol/L (22.0-30.0); Creatinine Clearance Estimated 47 mL/min (50-200); Estimated Glomerular Filt Rate 164 ml/min (>60); GFR (African American) 199 ML/MIN (>60); Glucose 129 mg/dl (74-100)
[2024-05-28 09:13] LABS: MANUAL DIFFERENTIAL MANUAL DIFFERENTIAL (MANUAL DIFF)
--- NOTE | 2024-05-28 09:55 | P.CONS_ITS ---
History of Present Illness History of present illness: Mr. Magallon is a 68-year-old male history of COPD lung cancer recently presented to the hospital for large right-sided pleural effusion status postthoracentesis a hydropneumothorax improved, discharged home on IV antibiotics for Pseudomonas pneumonia completed 7-day course 05/24/2024 presented to the ER status post fall. Patient admits improving cough and productive phlegm. Denies any subjective fevers. Stable respiratory symptoms. [facility] Disclaimer: The information contained in this section may have been updated after the patient was seen, as this information can be updated by other users. Medical History Fracture of greater trochanter of right femur Acute esophageal obstruction Food impaction of esophagus Acute left-sided weakness Left sided numbness Malignant pleural effusion Pneumothorax Chest tube in place Primary lung cancer Pleural effusion on right Parotid nodule Pneumonia Dysphagia Dyspnea on exertion Lung cancer Tobacco abuse disorder COPD mixed type Mediastinal lymphadenopathy Hilar lymphadenopathy Multiple lung nodules on CT Smoking greater than 30 pack years Esophageal obstruction due to food impaction Surgical History History of colonoscopy History of eye surgery History of back surgery Family History Other Leukemia Lung cancer Social History (Updated 05/27/24 @ 18:49 by Roxi Robertson, VERA) Smoking Status: Never smoker how long ago did patient quit smokin weeks second hand exposure: Yes alcohol intake: never substance use type: denies use current occupational status: retired Travel in the last 8 weeks: None household members: spouse housing: house lives independently: No marital status: education level: high school service: No current occupational exposures/hazards: No caffeine: Yes firearms in home: No do you feel safe at home: Yes victim of physical abuse: No victim of emotional abuse: No victim of sexual abuse: No would you like helpful sources: No Review of Systems Constitutional Constitutional: Denies anorexia, Denies body ache(s), Reports fatigue and Reports weakness Eyes Eyes: Denies itchy eyes and Reports loss of vision (OD due to glaucoma) ENT Ears, Nose, Mouth, and Throat: Denies epistaxis, Denies facial pain, Denies lip swelling and Denies throat swelling *Cardiovascular Cardiovascular: Reports dyspnea and Reports dyspnea on exertion *Respiratory Respiratory: Denies change in phlegm color, Reports chest congestion, Reports cough, Reports dyspnea, Reports dyspnea on exertion, Denies excessive phlegm production, Denies hemoptysis, Denies pain on inspiration, Denies pain with cough and Denies wheezing *Gastrointestinal Gastrointestinal: Denies abdominal pain, Denies belching and Denies cramping *Musculoskeletal Musculoskeletal: Reports back pain, Reports myalgias and Reports other (No small joint swelling or Pain) *Neurologic Neurologic: Reports system reviewed and no additional complaints, except as documented, Reports loss of vision (OD due to glaucoma) and Reports weakness Psychiatric Psychiatric: Denies homicidal ideation and Denies suicidal ideation Endocrine Endocrine: Reports fatigue and Denies heat intolerance Hematologic/Lymphatic Hematologic/Lymphatic: Denies easy bleeding and Denies lymphadenopathy Allergic/Immunologic Allergic/Immunologic: Denies itchy eyes, Denies lip swelling, Denies throat swelling and Denies wheezing Pulmonology Exam Inpatient Vital signs and Labs for Last 24 Hours: Temp Pulse Resp BP Pulse Ox O2 Del Method O2 Flow Rate 98.2 F 68 17 114/57 L 98 Nasal Cannula 3 05/28/24 08:00 05/28/24 08:00 05/28/24 08:00 05/28/24 08:00 05/28/24 08:00 05/28/24 08:49 05/28/24 08:49 Laboratory Results - last 24 hr 05/27/24 19:01: WBC 17.4 H, RBC 3.50 L, Hgb 11.2 L, Hct 33.2 L, MCV 94.9 H, MCH 32.0 H, MCHC 33.7, RDW 14.3, Plt Count 309, MPV 9.4, Neut % (Auto) 92.9 H, Lymph % (Auto) 2.3 L, [place] % (Auto) 3.0, Eos % (Auto) 1.2, Baso % (Auto) 0.2, Neut # (Auto) 16.1 H, Lymph # (Auto) 0.4 L, [place] # (Auto) 0.5, Eos # (Auto) 0.2, Baso # (Auto) 0.0, Total Counted 100, Neutrophils % (Manual) 96 H, Monocytes % (Manual) 2, Eosinophils % (Manual) 2, Platelet Estimate Normal, Stomatocytes 1+, PT 10.9, INR 0.99, Sodium 134 L, Potassium 3.7, Chloride 99, Carbon Dioxide 31 H, Anion Gap 7.7, BUN 18, Creatinine 0.60 L, Estimated Creat Clear 47, Estimated GFR 133, Est GFR ( Amer) 161, Glucose 102 H, Calcium 8.1 L, Blood Type A Positive, Antibody Screen Negative 05/28/24 08:46: WBC 16.6 H, RBC 3.48 L, Hgb 11.2 L, Hct 33.4 L, MCV 96.0 H, MCH 32.2 H, MCHC 33.5, RDW 14.4, Plt Count 280, MPV 9.2, Neut % (Auto) 98.0 H, Lymph % (Auto) 0.7 L, [place] % (Auto) 0.7 L, Eos % (Auto) 0.0 L, Baso % (Auto) 0.1, Neut # (Auto) 16.3 H, Lymph # (Auto) 0.1 L, [place] # (Auto) 0.1, Eos # (Auto) 0.0, Baso # (Auto) 0.0, Sodium 135 L, Potassium 4.4, Chloride 103, Carbon Dioxide 27, Anion Gap 9.4, BUN 17, Creatinine 0.50 L, Estimated Creat Clear 47, Estimated GFR 164, Est GFR ( Amer) 199 D, Glucose 129 H D, Calcium 8.0 L I & O for Labs for Last 24 Hours: Intake & Output 05/25/24 05/26/24 05/27/24 05/28/24 23:59 23:59 23:59 23:59 Output Total 0 / 0 300 / 300 Balance 0 / 0 -300 / -300 Weight 106 lb 6 oz 106 lb 6.4 oz Constitutional: Present mild distress Head: Present normocephalic and atraumatic ENT: Present normal exam, normal oropharynx and mucous membranes moist Neck: Present normal inspection and full ROM Respiratory: Present rhonchi, diminished air movement and able to speak in complete sentences; Absent prolonged expiratory phase, wheezes or crackles Cardiac: Present S1/S2, Tachycardia and radial pulses present GI: Present soft and distention; Absent tenderness or guarding Skin: Present intact; Absent cyanosis or jaundice Neuro: Present alert, awake and oriented x 3 Extremities: Present normal inspection; Absent clubbing or cyanosis Psychiatric: Present normal affect and cooperative Meds Home Medications and Allergies Home Medications ?Medication ?Instructions ?Recorded ?Confirmed ?Type diazepam 10 mg tablet 10 mg PO TIDP PRN Anxiety 09/25/23 05/27/24 History gabapentin 600 mg tablet 600 mg PO QID 09/25/23 05/27/24 History levocetirizine 5 mg tablet 5 mg PO DAILY 09/25/23 05/27/24 History oxycodone 5 mg tablet 5 mg PO Q6HP PRN Severe Pain 09/25/23 05/27/24 History (Scale Score 7-10) sulindac 200 mg tablet 200 mg PO BID 09/25/23 05/27/24 History megestrol 400 mg/10 mL (40 mg/mL) 400 mg (10 mL) PO DAILY #250 mL 09/28/23 05/27/24 Rx oral suspension tiotropium 2.5 mcg-olodaterol 2.5 2 puff inhalation DAILY 90 days #4 10/12/23 05/27/24 Rx mcg/actuation mist for inhalation grams (Stiolto Respimat) dexamethasone 4 mg tablet 4 mg PO BID #40 tabs 05/22/24 05/27/24 Rx New Prescriptions to Start Prescriptions: Allergies Allergy/AdvReac Type Severity Reaction Status Date / Time Iodinated Contrast Media Allergy Intermediate Hives Verified 05/08/24 09:58 Results Laboratory Findings 05/28/24 08:46 05/28/24 08:46 PT/INR, D-dimer PT 10.9 seconds (9.2-12.1) 05/27/24 19:01 INR 0.99 (0.9-1.1) 05/27/24 19:01 Abnormal lab findings: Abnormal Labs 05/27/24 05/28/24 19:01 08:46 WBC 17.4 H 16.6 H RBC 3.50 L 3.48 L Hgb 11.2 L 11.2 L Hct 33.2 L 33.4 L MCV 94.9 H 96.0 H MCH 32.0 H 32.2 H Neut % (Auto) 92.9 H 98.0 H Lymph % (Auto) 2.3 L 0.7 L [place] % (Auto) 0.7 L Eos % (Auto) 0.0 L Neut # (Auto) 16.1 H 16.3 H Lymph # (Auto) 0.4 L 0.1 L Neutrophils % (Manual) 96 H Sodium 134 L 135 L Carbon Dioxide 31 H Creatinine 0.60 L 0.50 L Glucose 102 H 129 H D Calcium 8.1 L 8.0 L Assessment and Plan *Assessment and plan (1) Malignant pleural effusion: Status: Acute Category: Medical Code(s): J91.0 - Malignant pleural effusion Plan Mr. Magallon is a 68-year-old male history of COPD lung cancer recently presented to the hospital for large right-sided pleural effusion status postthoracentesis a hydropneumothorax improved, discharged home on IV antibiotics for Pseudomonas pneumonia completed 7-day course 05/24/2024 presented to the ER status post fall. Patient admits improving cough and productive phlegm. Denies any subjective fevers. Stable respiratory symptoms. Chest x-ray upon admission bilateral infiltrate relatively stable from prior. Small to moderate right pleural effusion noted. No obvious evidence of pneumothorax. Neutrophilic predominant leukocytosis on admission. Afebrile. Hemodynamically stable. Continue to receive dexamethasone 4 mg p.o. twice daily, home medication. Plan: Continue DuoNebs every 6 hours along with Pulmicort every 12 scheduled Will hold off on initiating antibiotics at this point of time clinical course. Continue oxygen supplementation to maintain O2 saturation below 90% and above, currently on baseline 3 L nasal cannula oxygen supplementation. Incentive spirometry and flutter valve
[2024-05-28 11:03] LABS: Lymphocytes % 1 % (10-50); Neutrophils % 99 % (42-76); Platelet Estimate Normal; RBC Morphology Normal; Total Cells Counted 100
--- NOTE | 2024-05-28 14:37 | PC.NURSE ---
Aox 4, assist times one, 's on , 3L NC, R hip fx to be repaired today by dr. bae, L PICC in place with NS @ 125, consult to pulmonary, PT and OT following, stage 2 to coccyx with mepilex in place.
--- NOTE | 2024-05-28 15:03 | P.PNANES_ITS ---
[facility] Disclaimer: The information contained in this section may have been updated after the patient was seen, as this information can be updated by other users. Medical History Fracture of greater trochanter of right femur Acute esophageal obstruction Food impaction of esophagus Acute left-sided weakness Left sided numbness Malignant pleural effusion Pneumothorax Chest tube in place Primary lung cancer Pleural effusion on right Parotid nodule Pneumonia Dysphagia Dyspnea on exertion Lung cancer Tobacco abuse disorder COPD mixed type Mediastinal lymphadenopathy Hilar lymphadenopathy Multiple lung nodules on CT Smoking greater than 30 pack years Esophageal obstruction due to food impaction Surgical History History of colonoscopy History of eye surgery History of back surgery Family History Other Leukemia Lung cancer Social History (Updated 05/27/24 @ 18:49 by Roxi Robertson RN) Smoking Status: Never smoker how long ago did patient quit smokin weeks second hand exposure: Yes alcohol intake: never substance use type: denies use current occupational status: retired Travel in the last 8 weeks: None household members: spouse housing: house lives independently: No marital status: education level: high school service: No current occupational exposures/hazards: No caffeine: Yes firearms in home: No do you feel safe at home: Yes victim of physical abuse: No victim of emotional abuse: No victim of sexual abuse: No would you like helpful sources: No Have you lived/traveled outside [place] in past 30 days?: No Contact w/someone who lives/traveled outside [place] past 30 days?: No Exposure to someone with infectious disease in past 14 days?: No Do you have a fever (greater than 100.4 F or 38 C)?: No Have you tested positive for COVID-19: No Exposed to someone with COVID-19 in past 14 days?: No Do you have a sore throat?: No Do you have a cough?: No Do you have any weakness?: No Do you have any diarrhea?: No Are you experiencing any unusual bleeding?: No Do you have any muscle aches/pain?: No Do you have any abdominal pain?: No Are you experiencing loss of taste or smell?: No [facility] Anesthesia Checklist Patient Identification Patient Identification: Arm Band Structural Data Admitted From: Home Planned Operative Procedure/s: Cephalomedullary Nailing Right Proximal Femur Consent for Planned Operative Procedure(s) Verified: Yes Verified Documents: Surgical Consent and History and Physical NPO Status Verified Time NPO: 12:00 (clear liquids) Additional verifications Anesthesia Reactions: No Airway Assessment Mallampati Score:: Class II C-Spine Mobility Assessed: Yes TMJ Mobility Assessed: Yes Dentition: Good Dentition Neurological Assessment Level of Consciousness: Awake, Alert and Appropriate Anesthesia Plan Anesthesia Risk discussed: Yes Anesthesia Plan: Verified ASA Class: IV Anesthesia Type: MAC w/Spinal Preoperative Comments Pre-Operative Comments: Had lengthy discussion with patient regarding anesthesia options. Ultimately, decision was made to proceed with Spinal/Mac anesthesia with backup plan of General Anesthesia. Patient verbalizes understanding of his high risk for complications d/t his comorbidities.
[2024-05-28] MEDS: CEFAZOLIN SODIUM 1 GM in 0.9 % SODIUM CHLORIDE 50 ML IV ×2 (15:29→20:35)
--- NOTE | 2024-05-28 16:58 | XR_ITS ---
PROCEDURE INFORMATION: Exam: XR Right Hip Exam date and time: 05/28/2024 4:58 PM Age: 68 years old Clinical indication: Device placement; Other: R tfn; FX; Additional info: Rtfn TECHNIQUE: Imaging protocol: Radiologic exam of the right hip. Views: 2 or 3 views hip with pelvis when performed. COMPARISON: MR HIP RT WO CON 05/27/2024 5:09 PM FINDINGS: Bones/joints: See Soft tissues finding. Soft tissues: Intraoperative fluoroscopy from justin femoral neck nail placement. Please see the surgical note for full description. IMPRESSION: Fluoroscopy provided for intraoperative utilization, please see dedicated surgical notes.
--- NOTE | 2024-05-28 17:07 | P.OP_ITS ---
Date of procedure: 05/28/24 Pre-op Diagnosis:: Right nondisplaced intertrochanteric hip fracture Post-op Diagnosis:: Same Procedure performed:: Cephalomedullary nailing right proximal femur Surgeon:: Art Acharya DO Data Processing Equipment Repairer(s):: Mervin [employer] SERVICER:: Spencer Mueller Anesthesia: spinal Estimated blood loss (mL): 50 Clinical Note:: Implants Synthes TFN short nail 130 degrees 105 mm helical blade Operative findings:: See dictation Operative note:: Patient identified preoperatively. Right hip marked with yes my initials. T ransported operative suite. Given spinal anesthesia and then placed on the fracture table with all bony prominences well-padded. The right foot was placed inline traction with the fracture table left leg in a semilithotomy position out of the field of x-ray. X-ray was brought to identify the proximal femur fracture is nondisplaced. Right hip was then prepped and draped normal sterile fashion. Once prepped and draped final operative timeout performed to identify proper patient procedure and extremity. Everyone involved in the case agreed. There are no counter indications to beginning. Did receive preoperative antibiotics. X-ray was brought and marking pen was used to maynor the tip of the greater trochanter a 2 fingerbreadth incision 2 fingerbreadths above the greater trochanter was made in line with the femur. Dissection was taken down through the IT band guidewire was placed under direct x-ray visualization to the tip of the greater trochanter and advanced into the canal. AP and lateral x-rays were reviewed to show proper placement of the guidewire and then the opening reamer was utilized. Once the opening reamer was utilized the ball-tipped guidewire was selected and placed down through the femoral canal and the 130 degree x 11 mm Synthes TFN nail was selected and placed over the guidewire and malleted into proper position. Once seated the 3 and 1 guide was selected and placed through the aiming arm. The ball-tipped guidewire was removed and the guidepin was placed into the femoral head in the proper trajectory and alignment viewed on the AP and lateral views. Once this was taken to its proper depth it was measured and measured to 108. The lateral cortical reamer was utilized for breaching the lateral cortex and then the step reamer was set to 105 and reamed to its proper depth. A size 105 helical blade was selected and impacted into place under direct visualization with the AP and lateral views in the x-ray. Once this was complete the locking mechanism for the helical blade was utilized to lock the screw in place. The distal locking screw guide was then selected and bicortically drilled and a distal locking screw through the plate was placed. Pictures were taken the AP and lateral views show proper placement of the dustin and the hardware. The insertion guide was then removed irrigation the wounds performed deep layers closed with 0 Vicryl subcutaneous with 2-0 Vicryl surgical clips in the skin for closure. Sterile dressing placed patient waken anesthesia taken recovery stable condition. Condition: stable Disposition: PACU Complications:: None apparent
--- NOTE | 2024-05-28 17:16 | EXP.ANES.I ---
[facility] Anesthesia Record Part I Anesthesia Record I Intake, IV Amount: 1,000 Hydration: Adequate Estimated blood loss (mL): 50 Urine output (mL): 800 Blood Products used (#): none Blood Pressure: 121/60 SaO2: 98 Pulse Rate: 109 Airway Patency: Patent Respiratory Rate: 16 Temperature: 99.1 F Patient is:: Drowsy and Stable Stable to PACU at:: 17:10
[2024-05-28 17:58] LABS: Microscopic,Cath URINE MICROSCOPIC (MICROSCOPIC)
[2024-05-28] MEDS: BUDESONIDE 0.5MG/2ML NEB 0.5 MG IH (18:14)
--- NOTE | 2024-05-28 18:44 | PC.NURSE ---
Right hip dressing c/d/i.
[2024-05-28 19:43] LABS: Appearance,Urine/Cath CLEAR (Clear); Bilirubin,Cath Negative (Negative); Blood, Urine/Cath Negative (Negative); Color,Urine/Cath YELLOW (Yellow); Glucose,Urine/Cath (UA) Negative (Negative); Ketones,Urine/Cath Negative (Negative); Leukocyte Esterase,Cath Negative (Negative); Nitrate,Cath Negative (Negative); Protein,Urine/Cath Negative (Negative); Specific Gravity, Urine/Cath 1.025 (1.005-1.030)
[2024-05-28 20:28] LABS: Bacteria,Urine/Cath TRACE /lpf; Mucus,Urine/Cath 3+ /lpf; Squamous Epithelial Ur./Cath Occasional #/hpf (0-5); WBC,Urine/Cath Occasional #/hpf (0-3)
[2024-05-28] MEDS: ASPIRIN 81MG CHEWABLE TABLET 81 MG PO (20:32)
[2024-05-29] VITALS (11 sets, daily range): BP systolic 110–135; BP diastolic 55–78; PULSE 85–109; RESP 16–20; TEMP 36.4–37.1; O2SAT 91–98; BMI 18.1
[2024-05-29] MEDS: 0.9 % SODIUM CHLORIDE 1000ML 1,000 ML 125 ML IV ×3 (00:13→16:22)
[2024-05-29] MEDS: CEFAZOLIN SODIUM 1 GM in 0.9 % SODIUM CHLORIDE 50 ML IV (04:16)
[2024-05-29] MEDS: OXYCODONE 5MG IMMEDIATE RELEASE TABLET 5 MG PO ×3 (04:20→20:21)
--- NOTE | 2024-05-29 04:52 | PC.NURSE ---
Alert and oriented. Complained of pain twice, treated per jun. Lung sounds diminished, 3L NC at baseline, O2 sat >90%. Right post hip, dressing in place, CDI. Stage 2 to coccyx. Patient has had an appetite and has snacked. Up and drinking coffee this morning. Bed alarm on. Call light in reach.
[2024-05-29] MEDS: IPRATROPIUM/ALBUTEROL 3 ML NEB IH ×4 (06:13→23:19)
[2024-05-29] MEDS: BUDESONIDE 0.5MG/2ML NEB 0.5 MG IH ×2 (06:13→18:41)
[2024-05-29 06:24] LABS: Albumin Level 2.7 g/dl (3.5-5.0); Chloride 103 mmol/L (98-107)
[2024-05-29 06:25] LABS: Potassium 4.5 mmoL/L (3.5-5.1); Sodium 134 mmol/L (136-145)
[2024-05-29 06:27] LABS: Blood Urea Nitrogen 16 mg/dl (9-20); Creatinine Clearance Estimated 53 mL/min (50-200); Estimated Glomerular Filt Rate 164 ml/min (>60); GFR (African American) 199 ML/MIN (>60)
[2024-05-29 06:28] LABS: Alanine Aminotransferase 35 U/L (12-78); Albumin/Globulin Ratio 1.1 (1.1-1.8); Alkaline Phosphatase 77 U/L (38-126); Anion Gap 7.5 mEq/L (5-15); Aspartate Amino Transferase 22 U/L (17-59); Bilirubin,Total 0.2 mg/dl (0.2-1.3); Carbon Dioxide 28 mmol/L (22.0-30.0); Globulin 2.5 g/dL (1.3-3.2); Glucose 134 mg/dl (74-100); Total Protein,Serum 5.2 g/dl (6.3-8.2)
[2024-05-29] MEDS: DEXAMETHASONE 4MG TABLET 4 MG PO ×2 (08:42→20:21)
[2024-05-29] MEDS: ASPIRIN 81MG CHEWABLE TABLET 81 MG PO ×2 (08:42→20:21)
[2024-05-29] MEDS: GABAPENTIN 600MG TABLET 600 MG PO ×4 (08:42→20:21)
--- NOTE | 2024-05-29 08:57 | EXP.ACUTE.PN ---
Subjective *Date: 05/29/24 *Time: 08:57 Interval history: Patient is feeling well today. He does have some pain in the right hip. He has been able to eat and did rest well last night. Medical Exam Vital signs and Labs for Last 24 Hours: Vital Signs Temp Pulse Pulse Resp BP BP Pulse Ox 05/29/24 07:00 05/29/24 06:16 94 H 05/29/24 06:16 96 H 05/29/24 06:16 98 05/29/24 04:51 05/29/24 04:00 98.7 F 105 H 18 120/61 95 05/29/24 03:00 05/29/24 00:56 05/29/24 00:00 98.2 F 108 H 16 115/59 L 94 L 05/28/24 23:01 85 05/28/24 23:01 89 05/28/24 23:01 94 L 05/28/24 22:50 05/28/24 21:40 97 H 16 123/55 L 98 05/28/24 21:00 05/28/24 20:40 107 H 16 113/52 L 92 L 05/28/24 20:00 107 H 05/28/24 19:40 97.6 F 110 H 16 114/45 L 95 05/28/24 19:10 114 H 16 113/68 95 05/28/24 18:40 97.8 F 117 H 16 134/56 L 94 L 05/28/24 18:25 97.6 F 115 H 15 134/56 L 93 L 05/28/24 18:15 106 H 05/28/24 18:15 109 H 05/28/24 18:15 92 L 05/28/24 18:10 97.6 F 110 H 15 118/57 L 93 L 05/28/24 17:55 97.6 F 108 H 15 113/51 L 92 L 05/28/24 17:47 05/28/24 17:40 97.6 F 109 H 15 110/55 L 89 L 05/28/24 17:35 109 H 20 127/78 95 05/28/24 17:30 109 H 20 127/60 95 05/28/24 17:20 99.1 F 111 H 20 129/62 94 L 05/28/24 17:17 99.1 F 109 H 16 121/60 05/28/24 17:10 110 H 20 121/60 95 05/28/24 14:43 05/28/24 12:19 05/28/24 12:00 72 05/28/24 12:00 74 05/28/24 12:00 96 05/28/24 10:17 O2 Del Method O2 Flow Rate 05/29/24 07:00 Room Air 05/29/24 06:16 05/29/24 06:16 05/29/24 06:16 Nasal Cannula 3 05/29/24 04:51 Nasal Cannula 3 05/29/24 04:00 Nasal Cannula 3 05/29/24 03:00 Nasal Cannula 3 05/29/24 00:56 Nasal Cannula 3 05/29/24 00:00 Nasal Cannula 2 05/28/24 23:01 05/28/24 23:01 05/28/24 23:01 05/28/24 22:50 Nasal Cannula 3 05/28/24 21:40 Nasal Cannula 3 05/28/24 21:00 Nasal Cannula 3 05/28/24 20:40 Nasal Cannula 2 05/28/24 20:00 Nasal Cannula 3 05/28/24 19:40 Nasal Cannula 3 05/28/24 19:10 Nasal Cannula 3 05/28/24 18:40 Nasal Cannula 3 05/28/24 18:25 Nasal Cannula 3 05/28/24 18:15 05/28/24 18:15 05/28/24 18:15 Nasal Cannula 3 05/28/24 18:10 Room Air 05/28/24 17:55 Nasal Cannula 3 05/28/24 17:47 Nasal Cannula 3 05/28/24 17:40 Nasal Cannula 3 05/28/24 17:35 Nasal Cannula 3 05/28/24 17:30 Nasal Cannula 3 05/28/24 17:20 Nasal Cannula 3 05/28/24 17:17 05/28/24 17:10 Nasal Cannula 3 05/28/24 14:43 Nasal Cannula 3 05/28/24 12:19 Nasal Cannula 3 05/28/24 12:00 05/28/24 12:00 05/28/24 12:00 Nasal Cannula 3 05/28/24 10:17 Nasal Cannula 3 Intake and Output 05/28/24 05/29/24 05/29/24 19:59 03:59 11:59 Intake Total 1000 / 1000 Output Total 900 / 1500 600 / 1500 Balance 1000 / -500 -900 / -500 -600 / -500 Intake: Intake, Total IV Amount 1000 / 1000 Output: Output, Urine Amount 900 / 1500 600 / 1500 Other: Number of Unmeasured Voids 0 Weight 120 lb Patient Weight 05/29/24 11:59 Weight 120 lb Laboratory Results - last 24 hr 05/28/24 08:46: WBC 16.6 H, RBC 3.48 L, Hgb 11.2 L, Hct 33.4 L, MCV 96.0 H, MCH 32.2 H, MCHC 33.5, RDW 14.4, Plt Count 280, MPV 9.2, Neut % (Auto) 98.0 H, Lymph % (Auto) 0.7 L, [place] % (Auto) 0.7 L, Eos % (Auto) 0.0 L, Baso % (Auto) 0.1, Neut # (Auto) 16.3 H, Lymph # (Auto) 0.1 L, [place] # (Auto) 0.1, Eos # (Auto) 0.0, Baso # (Auto) 0.0, Total Counted 100, Neutrophils % (Manual) 99 H, Lymphocytes % (Manual) 1 L, Platelet Estimate Normal, RBC Morphology Normal, Sodium 135 L, Potassium 4.4, Chloride 103, Carbon Dioxide 27, Anion Gap 9.4, BUN 17, Creatinine 0.50 L, Estimated Creat Clear 47, Estimated GFR 164, Est GFR ( Amer) 199 D, Glucose 129 H D, Calcium 8.0 L 05/28/24 16:55: Urine Color Yellow, Urine Appearance Clear, Urine pH 6.0, Ur Specific [place] 1.025, Urine Protein Negative, Urine Glucose (UA) Negative, Urine Ketones Negative, Urine Blood Negative, Urine Nitrate Negative, Urine Bilirubin Negative, Urine Urobilinogen 1.0, Ur Leukocyte Esterase Negative, Urine RBC None, Urine WBC Occasional, Ur Squamous Epith Cells Occasional, Urine Bacteria Trace 05/29/24 05:30: Sodium 134 L, Potassium 4.5, Chloride 103, Carbon Dioxide 28, Anion Gap 7.5, BUN 16, Creatinine 0.50 L, Estimated Creat Clear 53, Estimated GFR 164, Est GFR ( Amer) 199, Glucose 134 H, Calcium 8.0 L, Total Bilirubin 0.2, AST 22, ALT 35, Alkaline Phosphatase 77, Total Protein 5.2 L, Albumin 2.7 L, Globulin 2.5, Albumin/Globulin Ratio 1.1 I & O for Labs for Last 24 Hours: Intake & Output 05/26/24 05/27/24 05/28/24 05/29/24 11:59 11:59 11:59 11:59 Intake Total 1000 / 1000 Output Total 300 / 300 1500 / 1500 Balance -300 / -300 -500 / -500 Weight 106 lb 6.4 oz 120 lb Constitutional: Present no acute distress and thin Respiratory: Present CTA bilaterally Cardiac: Present Reg Rate and Rhythm GI: Present soft and normal bowel sounds; Absent distention Extremities: Absent edema or calf tenderness Comment:: Patient is able to wiggle his toes on the right and move his foot. Neuro: Present alert, awake and oriented x 3 Assessment and Plan *Assessment and plan (1) Closed intertrochanteric fracture of right femur: Status: Acute Category: Medical Code(s): S72.141A - Displaced intertrochanteric fracture of right femur, initial encounter for closed fracture (2) Fracture of greater trochanter of right femur: Status: Acute Category: Medical Code(s): S72.111A - Displaced fracture of greater trochanter of right femur, initial encounter for closed fracture (3) Primary lung cancer: Status: Acute Category: Medical Code(s): C34.90 - Malignant neoplasm of unspecified part of unspecified bronchus or lung (4) Glaucoma of right eye: Status: Acute Category: Medical Code(s): H40.9 - Unspecified glaucoma (5) Severe protein-calorie malnutrition: Status: Acute Category: Medical Code(s): E43 - Unspecified severe protein-calorie malnutrition (6) COPD mixed type: Status: Chronic Category: Medical Code(s): J44.9 - Chronic obstructive pulmonary disease, unspecified (7) Smoking greater than 30 pack years: Status: Chronic Category: Social Hx Code(s): F17.210 - Nicotine dependence, cigarettes, uncomplicated Plan Ortho and pulmonology to follow. Will start PT and OT today. Will discuss further care with Dr. Lanza.
--- NOTE | 2024-05-29 09:44 | EXP.ORTH.PN ---
Subjective *Date: 05/29/24 *Time: 07:15 Interval history: Patient seen sitting comfortably in bed, eating breakfast. Denies BELTRAN, dizziness, CP, SOB, n/v, paresthesias, calf pain. States pain is well controlled, looking forward to working with PT later. Ortho Exam (Inpt) Vital signs and Labs for Last 24 Hours: Temp Pulse Resp BP Pulse Ox O2 Del Method O2 Flow Rate 97.9 F 106 H 16 110/56 L 95 Nasal Cannula 3 05/29/24 08:00 05/29/24 08:00 05/29/24 08:00 05/29/24 08:00 05/29/24 08:00 05/29/24 09:00 05/29/24 09:00 Laboratory Results - last 24 hr 05/28/24 08:46: Total Counted 100, Neutrophils % (Manual) 99 H, Lymphocytes % (Manual) 1 L, Platelet Estimate Normal, RBC Morphology Normal 05/28/24 16:55: Urine Color Yellow, Urine Appearance Clear, Urine pH 6.0, Ur Specific [place] 1.025, Urine Protein Negative, Urine Glucose (UA) Negative, Urine Ketones Negative, Urine Blood Negative, Urine Nitrate Negative, Urine Bilirubin Negative, Urine Urobilinogen 1.0, Ur Leukocyte Esterase Negative, Urine RBC None, Urine WBC Occasional, Ur Squamous Epith Cells Occasional, Urine Bacteria Trace 05/29/24 05:30: Sodium 134 L, Potassium 4.5, Chloride 103, Carbon Dioxide 28, Anion Gap 7.5, BUN 16, Creatinine 0.50 L, Estimated Creat Clear 53, Estimated GFR 164, Est GFR ( Amer) 199, Glucose 134 H, Calcium 8.0 L, Total Bilirubin 0.2, AST 22, ALT 35, Alkaline Phosphatase 77, Total Protein 5.2 L, Albumin 2.7 L, Globulin 2.5, Albumin/Globulin Ratio 1.1 I & O for Labs for Last 24 Hours: Intake & Output 05/26/24 05/27/24 05/28/24 05/29/24 23:59 23:59 23:59 23:59 Intake Total 1000 / 1000 240 / 240 Output Total 0 / 0 300 / 300 1500 / 1500 Balance 0 / 0 700 / 700 -1260 / -1260 Weight 48.251 kg 48.262 kg 54.431 kg Additional findings:: R hip: Dressing C/D/I. NVID with <2 sec caprefill, SILT 1st DWS/PA, + motor EHL/FHL/GS/TA. Calves and thigh SNT. Assessment and Plan *Assessment and plan (1) Closed intertrochanteric fracture of right femur: Status: Acute Category: Medical Code(s): S72.141A - Displaced intertrochanteric fracture of right femur, initial encounter for closed fracture Plan WBAT to RLE, ambulate with device PRN. Pain control PRN medical team DVT ppx Ice to R hip PRN pain CBC ordered for later today and 2/6 AM. Hyponatremia: Encourage PO intake. Further intervention per medical team. Will continue to follow. Thank you for this consult.
--- NOTE | 2024-05-29 09:46 | P.PN_ITS ---
Subjective *Date: 05/29/24 *Time: 12:06 Interval history: No acute respiratory vents overnight. Patient denies any new respiratory complaints. Pulmonology Exam Inpatient Vital signs and Labs for Last 24 Hours: Temp Pulse Resp BP Pulse Ox O2 Del Method O2 Flow Rate 97.9 F 106 H 16 110/56 L 95 Nasal Cannula 3 05/29/24 08:00 05/29/24 08:00 05/29/24 08:00 05/29/24 08:00 05/29/24 08:00 05/29/24 09:00 05/29/24 09:00 Laboratory Results - last 24 hr 05/28/24 08:46: Total Counted 100, Neutrophils % (Manual) 99 H, Lymphocytes % (Manual) 1 L, Platelet Estimate Normal, RBC Morphology Normal 05/28/24 16:55: Urine Color Yellow, Urine Appearance Clear, Urine pH 6.0, Ur Sp ecific [place] 1.025, Urine Protein Negative, Urine Glucose (UA) Negative, Urine Ketones Negative, Urine Blood Negative, Urine Nitrate Negative, Urine Bilirubin Negative, Urine Urobilinogen 1.0, Ur Leukocyte Esterase Negative, Urine RBC None, Urine WBC Occasional, Ur Squamous Epith Cells Occasional, Urine Bacteria Trace 05/29/24 05:30: Sodium 134 L, Potassium 4.5, Chloride 103, Carbon Dioxide 28, Anion Gap 7.5, BUN 16, Creatinine 0.50 L, Estimated Creat Clear 53, Estimated GFR 164, Est GFR ( Amer) 199, Glucose 134 H, Calcium 8.0 L, Total Bilirubin 0.2, AST 22, ALT 35, Alkaline Phosphatase 77, Total Protein 5.2 L, Albumin 2.7 L, Globulin 2.5, Albumin/Globulin Ratio 1.1 Temp Pulse Resp BP Pulse Ox O2 Del Method O2 Flow Rate 98.2 F 68 17 114/57 L 98 Nasal Cannula 3 05/28/24 08:00 05/28/24 08:00 05/28/24 08:00 05/28/24 08:00 05/28/24 08:00 05/28/24 08:49 05/28/24 08:49 Laboratory Results - last 24 hr 05/27/24 19:01: WBC 17.4 H, RBC 3.50 L, Hgb 11.2 L, Hct 33.2 L, MCV 94.9 H, MCH 32.0 H, MCHC 33.7, RDW 14.3, Plt Count 309, MPV 9.4, Neut % (Auto) 92.9 H, Lymph % (Auto) 2.3 L, [place] % (Auto) 3.0, Eos % (Auto) 1.2, Baso % (Auto) 0.2, Neut # (Auto) 16.1 H, Lymph # (Auto) 0.4 L, [place] # (Auto) 0.5, Eos # (Auto) 0.2, Baso # (Auto) 0.0, Total Counted 100, Neutrophils % (Manual) 96 H, Monocytes % (Manual) 2, Eosinophils % (Manual) 2, Platelet Estimate Normal, Stomatocytes 1+, PT 10.9, INR 0.99, Sodium 134 L, Potassium 3.7, Chloride 99, Carbon Dioxide 31 H, Anion Gap 7.7, BUN 18, Creatinine 0.60 L, Estimated Creat Clear 47, Estimated GFR 133, Est GFR ( Amer) 161, Glucose 102 H, Calcium 8.1 L, Blood Type A Positive, Antibody Screen Negative 05/28/24 08:46: WBC 16.6 H, RBC 3.48 L, Hgb 11.2 L, Hct 33.4 L, MCV 96.0 H, MCH 32.2 H, MCHC 33.5, RDW 14.4, Plt Count 280, MPV 9.2, Neut % (Auto) 98.0 H, Lymph % (Auto) 0.7 L, [place] % (Auto) 0.7 L, Eos % (Auto) 0.0 L, Baso % (Auto) 0.1, Neut # (Auto) 16.3 H, Lymph # (Auto) 0.1 L, [place] # (Auto) 0.1, Eos # (Auto) 0.0, Baso # (Auto) 0.0, Sodium 135 L, Potassium 4.4, Chloride 103, Carbon Dioxide 27, Anion Gap 9.4, BUN 17, Creatinine 0.50 L, Estimated Creat Clear 47, Estimated GFR 164, Est GFR ( Amer) 199 D, Glucose 129 H D, Calcium 8.0 L I & O for Labs for Last 24 Hours: Intake & Output 05/26/24 05/27/24 05/28/24 05/29/24 23:59 23:59 23:59 23:59 Intake Total 1000 / 1000 240 / 240 Output Total 0 / 0 300 / 300 1500 / 1500 Balance 0 / 0 700 / 700 -1260 / -1260 Weight 106 lb 6 oz 106 lb 6.4 oz 120 lb Intake & Output 05/25/24 05/26/24 05/27/24 05/28/24 23:59 23:59 23:59 23:59 Output Total 0 / 0 300 / 300 Balance 0 / 0 -300 / -300 Weight 106 lb 6 oz 106 lb 6.4 oz Constitutional: Present mild distress Head: Present normocephalic and atraumatic ENT: Present normal exam, normal oropharynx and mucous membranes moist Neck: Present normal inspection and full ROM Respiratory: Present rhonchi, diminished air movement and able to speak in complete sentences; Absent prolonged expiratory phase, wheezes or crackles Cardiac: Present S1/S2, Tachycardia and radial pulses present GI: Present soft and distention; Absent tenderness or guarding Skin: Present intact; Absent cyanosis or jaundice Neuro: Present alert, awake and oriented x 3 Extremities: Present normal inspection; Absent clubbing or cyanosis Psychiatric: Present normal affect and cooperative Assessment and Plan *Assessment and plan (1) Malignant pleural effusion: Status: Acute Category: Medical Code(s): J91.0 - Malignant pleural effusion Plan Mr. Magallon is a 68-year-old male history of COPD lung cancer recently presented to the hospital for large right-sided pleural effusion status postthoracentesis a hydropneumothorax improved, discharged home on IV antibiotics for Pseudomonas pneumonia completed 7-day course 05/24/2024 presented to the ER status post fall. Patient admits improving cough and productive phlegm. Denies any subjective fevers. Stable respiratory symptoms. Chest x-ray upon admission bilateral infiltrate relatively stable from prior. Small to moderate right pleural effusion noted. No obvious evidence of pneumothorax. Neutrophilic predominant leukocytosis on admission. Afebrile. Hemodynamically stable. Continue to receive dexamethasone 4 mg p.o. twice daily, home medication. Interval update: No acute respiratory vents overnight. Relatively stable with no significant improvement in the noted leukocytosis. Stable oxygen requirements. No new complaints. Plan: Continue DuoNebs every 6 hours along with Pulmicort every 12 scheduled Will hold off on initiating antibiotics at this point of time. Continue oxygen supplementation to maintain O2 saturation below 90% and above, currently on baseline 3 L nasal cannula oxygen supplementation. Incentive spirometry and flutter valve
--- NOTE | 2024-05-29 09:56 | HMH.OTEV ---
OT Inpatient Evaluation Rehab OT IP Evaluation Start: 05/27/24 15:41 Freq: ONCE Status: Active Protocol: Document 05/29/24 09:46 [facility] (Rec: 05/29/24 09:56 [facility] [id number]) Rehab OT IP Assessment Subjective History Pt oriented x 2 on arrival. Pt agreeable to engage in therapy evaluation. Pt admitted on 05/27/24 due to right hip fx. Pt required a Cephalomedullary nailing right proximal femur on 05/28/24. History and physical: 68-year-old male has a history of lung cancer with malignant pleural effusion. He was recently hospitalized at [facility] with chest tube placement after thoracentesis and a pneumothorax. He returns to ER today after a fall. He was getting out of bed around 5 AM today, 05/27. He fell onto the floor while doing so. Did not hit his head. Fell right onto his right hip and has been having significant pain since. His helped him get in the bed , but has not been able to use the leg almost at all today, so he came in for evaluation. The pain is moderate at rest , severe in intensity when moving the right hip at all. No knee or ankle pain. On arrival, patient hemodynamically stable, alert, oriented x4, appropriate, GCS 15, moving all extremities spontaneously. Right lower extremity pulses and neurologic exam normal. Significant tenderness with internal rotation and lateral compression of hip at level of greater trochanter. No outward signs of abnormality. Moderate right inguinal fold tenderness. His initial blood pressure 114 /59, heart rate 88, saturation 98% on 3 L nasal cannula ( baseline). Patient was given Zofran and Dilaudid. In the ER the x-ray was read as intertrochanteric fracture right femur with nondisplacement. He was admitted with this diagnosis. BUT REVIEW OF THE X-RAY AND RADIOLOGIST'S REPORT SHOWS A subtle greater trochanteric fracture. The ER contacted Dr. Acharya, orthopedic surgeon, who recommended further evaluation including MRI of the right hip. Subjective I was doing better. Pt reports prior to being in the hospital he lived at home with his and his son. Pt claims normally he is independent with ADLs such as dressing, bathing, and feeding . However, he is dependent upon family for completion of all IADLs. Pt is oxygen dependent of 3L. Pt does use a rolling walker during functional transfers. Objective Patient Orientation Person,Place,Birthday Right Upper Extremity Gross ROM WFL Left Upper Extremity Gross ROM WFL Bed Mobility bed mobility-scooting,bed mobility - supine/sit Assist Level Minimal x 2 (25% assist) Transfer Training Sit/Stand/Step Transfer Assist Level Minimal x 2 (25% assist) Rehab OT IP prob,goals,plan Problems Date of Evaluation: 05/29/24 OT IP Problems Bed Mobility,Transfers,Balance ,Self care,Safety Rehab Potential Rehab Potential Good Equipment Needs Assistive Devices Rolling / Wheeled Walker Plan OT intervention Plan Bed Mobility,Transfers,Balance ,Self care,Safety,Therapeutic Exercise OT Plan Frequency Daily Duration LOS Discharge Goals Bed Mobility Ability Assistance x1 Sit to Stand Chair Transfer Ability Minimal x 1 (25% assist) Chair Transfer Ability Minimal x 1 (25% assist) Chair Transfer Technique Sit to/from Ambulatory Chair Transfer Assistive Devices Rolling Walker Lower Body Dressing Ability Maximum Assistance Upper Body Dressing Ability Minimal Assistance Bathing Ability Maximum Assistance Performing Toilet Hygiene Ability Moderate Assistance Overall Commode/Toilet Transfer Ability Minimal Assistance Commode/Toilet Transfer Technique Sit to/from Ambulatory Discharge Plan OT Discharge Plan Pt will continue to be seen for OT services while at [facility]. Pt would benefit most from short term rehab at SNF following discharge from hospital. Continued skilled therapy is very important in order for patient to improve strength, safety, endurance, ADL independence, and functional transfers to reach PLOF. Eval Complexity Eval Charge Codes 49040 - Moderate Complexity PHYSICIAN CERTIFICATION: I certify the specified therapy services for Demetra Magallon JR are required, authorized, and reviewed every 30 days.
--- NOTE | 2024-05-29 10:03 | SW/DCPLANNER ---
Addendum entered by Nat Ventura 05/30/24 15:44: Patient has been approved SNF level of care. I will update MD. Addendum entered by Nat Ventura 05/30/24 11:41: [facility] is starting a precert on this patient. Addendum entered by Nat Ventura 05/30/24 09:53: [facility] is still reviewing patient information at this time. Addendum entered by Nat Ventura 05/29/24 14:21: [facility] is at bedside to evaluate this patient. Addendum entered by Anna Rodriguez 05/29/24 13:22: spoke with patient and still waiting on [facility] and asked him what his next option would be and patient suggested [facility] in [place]. Faxed patients information to [facility] and will update when I hear something back. Alejandro Coughlin Original Note: I spoke w/ this patient regarding plans once medically stable for discharge. PT/OT evaluated patient and recommended SNF level of care at time of discharge. Patient and at bedside this AM are both agreeable to placement and prefer [facility]. Patient is not currently on any chemotherapy or immunotherapy. Patient information will be faxed to [facility] this AM. Discharge date is unknown at this time. I will continue to follow up.
--- NOTE | 2024-05-29 10:32 | HMH.PTEV ---
Physical Therapy Evaluation Rehab PT IP Evaluation Start: 05/28/24 17:12 Freq: ONCE Status: Active Protocol: Document 05/29/24 10:04 [facility] (Rec: 05/29/24 10:26 [facility] [id number]) Subjective/History History History Pt admitted to [facility] after a fall resulting in a broken R hip. Pt is s/p cephalomedullary nailing of R femur 05/28/24. Pt is WBAT. Subjective Subjective PLOF: Lived at home with his and son. Reports he was IND with all mobility. Pt is oxygen dependent of 3L. Pt does use a rolling walker during functional transfers and ambulation. New diagnosis of cancer in past 12 No months? Rehab PT IP Eval Objective Appearance Patient Behavior Appropriate,Cooperative Patient Orientation Person,Place,Birthday, Situation Difficulty following instructions none Speech Pattern Clear Ambulation Patient Able to Ambulate Yes Ambulation Observation IP General Gait Pattern Observation Antalgic Gait Ambulation Distance (feet) 6 Ambulation Assistive Device Rolling Walker Ambulation Ability Minimal x 1 (25% assist) Balance Ability to Arise Able, uses arms to help Sitting Balance Steady, safe Standing Balance Unsteady Dynamic Sitting Balance Ability Good Dynamic Standing Balance Ability Fair Transfers Bed Transfer Ability Moderate x 2 (50% assist) Sit to Stand Bed Transfer Ability Moderate x 2 (50% assist) Rehab PT IP prob,goals,plan Problems Date of Evaluation: 05/29/24 PT IP Problems Bed Mobility,Transfers,Gait, Balance,Self care,Safety Rehab Potential Rehab Potential Good Plan PT Intervention Plan Bed Mobility,Transfers,Gait, Balance,Self care,Safety, Therapeutic Exercise Other Intervention Plan 1-2 times PT Plan Frequency Daily Duration LOS Discharge Goals Bed Transfer Ability Independent Sit to Stand Chair Transfer Ability Independent Discharge Plan PT Discharge Plan Initial PT evaluation performed. PT recommending skilled inpatient rehab upon d /c. Pt is not safe to return home d/t his current level of functional mobility. Pt would benefit from skilled acute care PT while at [facility] to prevent functional decline and address deficits. Eval Complexity Eval Charge Codes 76367 - Moderate Complexity PHYSICIAN CERTIFICATION: I certify the specified therapy services for Demetra Magallon JR are required, authorized, and reviewed every 30 days.
[2024-05-29 10:58] LABS: Basophils % 0.1 % (0.1-2.0); Hematocrit 30.2 % (42.0-52.0); Lymphocytes # 0.2 K/mm3 (0.7-4.5); Lymphocytes % 0.8 % (10-50); Mean Corpuscular HGB Conc 32.1 g/dL (31.8-35.4); Mean Corpuscular Hemoglobin 31.2 pg (27.0-31.2); Mean Corpuscular Volume 97.1 fl (80-94); Mean Platelet Volume 9.8 fl (7.4-10.4); Monocytes # 0.3 K/mm3 (0.1-1.0); Monocytes % 1.8 % (1.7-9.3); Neutrophils # 17.9 K/mm3 (1.8-7.8); Neutrophils % 96.7 % (37.0-80.0); Platelet Count 312 K/mm3 (142-424); Red Blood Count 3.11 M/mm3 (4.60-6.20); Red Cell Distribution Width 14.9 % (11.5-17.5); White Blood Count 18.5 K/mm3 (4.8-10.8)
[2024-05-29 11:01] LABS: MANUAL DIFFERENTIAL MANUAL DIFFERENTIAL (MANUAL DIFF)
--- NOTE | 2024-05-29 12:41 | P.PNANES_ITS ---
[facility] Anesthesia Record Part II Anesthesia Record Part II Discharge Time: 17:35 Destination: Medical Surgical Department PACU nurse assessment reviewed?: Yes Patient Condition:: Good Anesthesia Complications:: None Swallowing reflex intact?: Yes Airway Patency: Patent Cyanosis?: No Blood Pressure: 127/78 SaO2: 95 Respiratory Rate: 20 Pulse Rate: 109 Temperature: 97.6 F Mental Status: Alert & Oriented Pain level:: 0 Nausea and/or vomitting:: None Intake, IV Amount: 0 Hydration: Adequate
[2024-05-29 14:05] LABS: Lymphocytes % 4 % (10-50); Monocytes % 2 % (2-9); Neutrophils % 94 % (42-76); Total Cells Counted 100
[2024-05-29 14:06] LABS: Hemoglobin 9.7 g/dL (14.1-18.0); Platelet Estimate Normal; RBC Morphology Normal
--- NOTE | 2024-05-29 15:22 | PC.NURSE ---
Aox 4, turn every two hours with assistance times one, bed alarm active, 02-3L NC, R hip drsg c/d/i, purewick in place, L UA PICC with NS at 125, PT and OT following.
[2024-05-30] VITALS (8 sets, daily range): BP systolic 129–146; BP diastolic 62–81; PULSE 88–123; RESP 16–20; TEMP 36.6–36.9; O2SAT 90–96; BMI 18.2
--- NOTE | 2024-05-30 03:50 | PC.NURSE ---
patient is alert and oriented X 4, patient has had some confusion at times throughout the night but is reoriented quickly. patient has c/o pain once this shift and was medicated per mar with satisfactory outcome. patient has tolerated 3L of O2 per nasal canula, with O2 sats >90%.
[2024-05-30 05:38] LABS: Basophils % 0.1 % (0.1-2.0); Hematocrit 28.1 % (42.0-52.0); Hemoglobin 9.7 g/dL (14.1-18.0); Lymphocytes # 0.2 K/mm3 (0.7-4.5); Lymphocytes % 1.6 % (10-50); Mean Corpuscular HGB Conc 34.5 g/dL (31.8-35.4); Mean Corpuscular Hemoglobin 32.4 pg (27.0-31.2); Mean Platelet Volume 9.4 fl (7.4-10.4); Monocytes # 0.4 K/mm3 (0.1-1.0); Monocytes % 2.8 % (1.7-9.3); Neutrophils % 95.2 % (37.0-80.0); Platelet Count 246 K/mm3 (142-424); Red Blood Count 2.99 M/mm3 (4.60-6.20); Red Cell Distribution Width 14.7 % (11.5-17.5); White Blood Count 12.6 K/mm3 (4.8-10.8)
[2024-05-30 05:51] LABS: MANUAL DIFFERENTIAL MANUAL DIFFERENTIAL (MANUAL DIFF)
[2024-05-30 05:52] LABS: Chloride 103 mmol/L (98-107); Potassium 4.5 mmoL/L (3.5-5.1); Sodium 136 mmol/L (136-145)
[2024-05-30 05:55] LABS: Anion Gap 7.5 mEq/L (5-15); Blood Urea Nitrogen 15 mg/dl (9-20); Calcium 8.2 mg/dl (8.4-10.2); Carbon Dioxide 30 mmol/L (22.0-30.0); Creatinine Clearance Estimated 53 mL/min (50-200); Estimated Glomerular Filt Rate 133 ml/min (>60); GFR (African American) 161 ML/MIN (>60); Glucose 112 mg/dl (74-100)
[2024-05-30] MEDS: BUDESONIDE 0.5MG/2ML NEB 0.5 MG IH (06:32)
[2024-05-30] MEDS: IPRATROPIUM/ALBUTEROL 3 ML NEB IH (06:32)
[2024-05-30 07:36] LABS: Lymphocytes % 2 % (10-50); Neutrophils % 98 % (42-76); RBC Morphology Normal; Total Cells Counted 100
[2024-05-30 07:37] LABS: Platelet Estimate Normal
[2024-05-30] MEDS: DEXAMETHASONE 4MG TABLET 4 MG PO ×2 (07:54→20:04)
[2024-05-30] MEDS: GABAPENTIN 600MG TABLET 600 MG PO ×4 (07:54→20:04)
[2024-05-30] MEDS: ASPIRIN 81MG CHEWABLE TABLET 81 MG PO ×2 (07:54→20:04)
[2024-05-30] MEDS: OXYCODONE 5MG IMMEDIATE RELEASE TABLET 5 MG PO ×3 (07:57→22:10)
--- NOTE | 2024-05-30 08:16 | PC.NURSE ---
05/28/24 Given report from Altagracia that patient's L UA PICC dressing was changed on admission.
--- NOTE | 2024-05-30 08:29 | P.PN_ITS ---
Subjective *Date: 05/30/24 *Time: 08:29 Interval history: Patient has been up in the chair for over 2 hours this am. He states he is starting to feel a little rough and would like to go back to the bed. He is having pain in his back and right hip. He just received something for pain. Medical Exam Vital signs and Labs for Last 24 Hours: Vital Signs Temp Pulse Pulse Resp BP Pulse Ox O2 Del Method 05/30/24 08:00 Nasal Cannula 05/30/24 06:56 Nasal Cannula 05/30/24 05:00 Nasal Cannula 05/30/24 04:00 98.1 F 99 H 16 146/81 H 96 Nasal Cannula 05/30/24 03:00 Nasal Cannula 05/30/24 01:00 Nasal Cannula 05/30/24 00:00 98.1 F 102 H 16 129/63 95 Nasal Cannula 05/29/24 23:19 100 H 05/29/24 23:19 104 H 05/29/24 23:00 Nasal Cannula 05/29/24 21:00 Nasal Cannula 05/29/24 20:00 Nasal Cannula 05/29/24 20:00 98.4 F 106 H 16 135/66 91 L Nasal Cannula 05/29/24 18:41 102 H 05/29/24 18:41 106 H 05/29/24 18:41 93 L Nasal Cannula 05/29/24 17:23 Nasal Cannula 05/29/24 16:09 Nasal Cannula 05/29/24 16:00 98.1 F 106 H 18 117/60 94 L Nasal Cannula 05/29/24 13:44 Nasal Cannula 05/29/24 13:05 85 05/29/24 13:05 88 05/29/24 12:43 20 05/29/24 12:04 Nasal Cannula 05/29/24 12:00 98.4 F 102 H 16 127/55 L 92 L Nasal Cannula 05/29/24 09:57 Nasal Cannula 05/29/24 09:00 Nasal Cannula O2 Flow Rate 05/30/24 08:00 3 05/30/24 06:56 3 05/30/24 05:00 3 05/30/24 04:00 3 05/30/24 03:00 3 05/30/24 01:00 3 05/30/24 00:00 3 05/29/24 23:19 05/29/24 23:19 05/29/24 23:00 3 05/29/24 21:00 3 05/29/24 20:00 3 05/29/24 20:00 3 05/29/24 18:41 05/29/24 18:41 05/29/24 18:41 3 05/29/24 17:23 3 05/29/24 16:09 3 05/29/24 16:00 05/29/24 13:44 3 05/29/24 13:05 05/29/24 13:05 05/29/24 12:43 05/29/24 12:04 3 05/29/24 12:00 3 05/29/24 09:57 3 05/29/24 09:00 3 Intake and Output 05/29/24 05/30/24 05/30/24 19:59 03:59 11:59 Intake Total 1360 / 3000 1640 / 3000 Output Total 1500 / 3500 1400 / 3500 600 / 3500 Balance -140 / -500 240 / -500 -600 / -500 Intake: Intake, Oral Amount 360 / 600 240 / 600 Intake, Total IV Amount 1000 / 2400 1400 / 2400 0.9 % Sodium Chloride 1000ML 1, 1000 / 2400 1400 / 2400 000 ml @ 125 mls/hr IV .Q8H [facility] Rx#:[id number] Output: Output, Urine Amount 1500 / 3500 1400 / 3500 600 / 3500 Other: Number of Unmeasured Voids 0 0 0 Weight 120 lb 9.6 oz Patient Weight 05/30/24 11:59 Weight 120 lb 9.6 oz Laboratory Results - last 24 hr 05/29/24 05:30: WBC 18.5 H, RBC 3.11 L, Hgb 9.7 L D, Hct 30.2 L, MCV 97.1 H, MCH 31.2, MCHC 32.1, RDW 14.9, Plt Count 312, MPV 9.8, Neut % (Auto) 96.7 H, Lymph % (Auto) 0.8 L, [place] % (Auto) 1.8, Eos % (Auto) 0.0 L, Baso % (Auto) 0.1, Neut # (Auto) 17.9 H, Lymph # (Auto) 0.2 L, [place] # (Auto) 0.3, Eos # (Auto) 0.0, Baso # (Auto) 0.0, Total Counted 100, Neutrophils % (Manual) 94 H, Lymphocytes % (Manual) 4 L, Monocytes % (Manual) 2, Platelet Estimate Normal, RBC Morphology Normal 05/30/24 05:26: WBC 12.6 H D, RBC 2.99 L, Hgb 9.7 L, Hct 28.1 L, MCV 94.0, MCH 32.4 H, MCHC 34.5, RDW 14.7, Plt Count 246, MPV 9.4, Neut % (Auto) 95.2 H, Lymph % (Auto) 1.6 L, [place] % (Auto) 2.8, Eos % (Auto) 0.0 L, Baso % (Auto) 0.1, Neut # (Auto) 12.0 H, Lymph # (Auto) 0.2 L, [place] # (Auto) 0.4, Eos # (Auto) 0.0, Baso # (Auto) 0.0, Total Counted 100, Neutrophils % (Manual) 98 H, Lymphocytes % (Manual) 2 L, Platelet Estimate Normal, RBC Morphology Normal, Sodium 136, Potassium 4.5, Chloride 103, Carbon Dioxide 30, Anion Gap 7.5, BUN 15, Creatinine 0.60 L, Estimated Creat Clear 53, Estimated GFR 133, Est GFR ( Amer) 161, Glucose 112 H, Calcium 8.2 L I & O for Labs for Last 24 Hours: Intake & Output 05/27/24 05/28/24 05/29/24 05/30/24 11:59 11:59 11:59 11:59 Intake Total 1240 / 1240 3000 / 3000 Output Total 300 / 300 2200 / 2200 3500 / 3500 Balance -300 / -300 -960 / -960 -500 / -500 Weight 106 lb 6.4 oz 119 lb 14.903 oz 120 lb 9.6 oz Constitutional: Present no acute distress and thin Respiratory: Present CTA bilaterally Cardiac: Present Reg Rate and Rhythm GI: Present soft and normal bowel sounds; Absent distention Extremities: Absent edema or calf tenderness Comment:: dressing in place on right hip Neuro: Present alert, awake and oriented x 3 Assessment and Plan *Assessment and plan (1) Closed intertrochanteric fracture of right femur: Status: Acute Category: Medical Code(s): S72.141A - Displaced intertrochanteric fracture of right femur, initial encounter for closed fracture (2) Fracture of greater trochanter of right femur: Status: Acute Category: Medical Code(s): S72.111A - Displaced fracture of greater trochanter of right femur, initial encounter for closed fracture (3) Primary lung cancer: Status: Acute Category: Medical Code(s): C34.90 - Malignant neoplasm of unspecified part of unspecified bronchus or lung (4) Glaucoma of right eye: Status: Acute Category: Medical Code(s): H40.9 - Unspecified glaucoma (5) Severe protein-calorie malnutrition: Status: Acute Category: Medical Code(s): E43 - Unspecified severe protein-calorie malnutrition (6) COPD mixed type: Status: Chronic Category: Medical Code(s): J44.9 - Chronic obstructive pulmonary disease, unspecified (7) Smoking greater than 30 pack years: Status: Chronic Category: Social Hx Code(s): F17.210 - Nicotine dependence, cigarettes, uncomplicated Plan Ortho and pulmonology to follow. Ortho has recommended he WBAT to [facility]. Patient is doing remarkably well.
--- NOTE | 2024-05-30 09:47 | EXP.PULM.PN ---
Subjective *Date: 05/30/24 *Time: 11:27 Interval history: No acute respiratory vents overnight. Patient denies any new respiratory complaints. Pulmonology Exam Inpatient Vital signs and Labs for Last 24 Hours: Temp Pulse Resp BP Pulse Ox O2 Del Method O2 Flow Rate 97.8 F 123 H 18 138/63 95 Nasal Cannula 3 05/30/24 08:00 05/30/24 08:00 05/30/24 08:00 05/30/24 08:00 05/30/24 08:00 05/30/24 08:46 05/30/24 08:46 Laboratory Results - last 24 hr 05/29/24 05:30: WBC 18.5 H, RBC 3.11 L, Hgb 9.7 L D, Hct 30.2 L, MCV 97.1 H, MCH 31.2, MCHC 32.1, RDW 14.9, Plt Count 312, MPV 9.8, Neut % (Auto) 96.7 H, Lymph % (Auto) 0.8 L, [place] % (Auto) 1.8, Eos % (Auto) 0.0 L, Baso % (Auto) 0.1, Neut # (Auto) 17.9 H, Lymph # (Auto) 0.2 L, [place] # (Auto) 0.3, Eos # (Auto) 0.0, Baso # (Auto) 0.0, Total Counted 100, Neutrophils % (Manual) 94 H, Lymphocytes % (Manual) 4 L, Monocytes % (Manual) 2, Platelet Estimate Normal, RBC Morphology Normal 05/30/24 05:26: WBC 12.6 H D, RBC 2.99 L, Hgb 9.7 L, Hct 28.1 L, MCV 94.0, MCH 32.4 H, MCHC 34.5, RDW 14.7, Plt Count 246, MPV 9.4, Neut % (Auto) 95.2 H, Lymph % (Auto) 1.6 L, [place] % (Auto) 2.8, Eos % (Auto) 0.0 L, Baso % (Auto) 0.1, Neut # (Auto) 12.0 H, Lymph # (Auto) 0.2 L, [place] # (Auto) 0.4, Eos # (Auto) 0.0, Baso # (Auto) 0.0, Total Counted 100, Neutrophils % (Manual) 98 H, Lymphocytes % (Manual) 2 L, Platelet Estimate Normal, RBC Morphology Normal, Sodium 136, Potassium 4.5, Chloride 103, Carbon Dioxide 30, Anion Gap 7.5, BUN 15, Creatinine 0.60 L, Estimated Creat Clear 53, Estimated GFR 133, Est GFR ( Amer) 161, Glucose 112 H, Calcium 8.2 L Temp Pulse Resp BP Pulse Ox O2 Del Method O2 Flow Rate 98.2 F 68 17 114/57 L 98 Nasal Cannula 3 05/28/24 08:00 05/28/24 08:00 05/28/24 08:00 05/28/24 08:00 05/28/24 08:00 05/28/24 08:49 05/28/24 08:49 Laboratory Results - last 24 hr 05/27/24 19:01: WBC 17.4 H, RBC 3.50 L, Hgb 11.2 L, Hct 33.2 L, MCV 94.9 H, MCH 32.0 H, MCHC 33.7, RDW 14.3, Plt Count 309, MPV 9.4, Neut % (Auto) 92.9 H, Lymph % (Auto) 2.3 L, [place] % (Auto) 3.0, Eos % (Auto) 1.2, Baso % (Auto) 0.2, Neut # (Auto) 16.1 H, Lymph # (Auto) 0.4 L, [place] # (Auto) 0.5, Eos # (Auto) 0.2, Baso # (Auto) 0.0, Total Counted 100, Neutrophils % (Manual) 96 H, Monocytes % (Manual) 2, Eosinophils % (Manual) 2, Platelet Estimate Normal, Stomatocytes 1+, PT 10.9, INR 0.99, Sodium 134 L, Potassium 3.7, Chloride 99, Carbon Dioxide 31 H, Anion Gap 7.7, BUN 18, Creatinine 0.60 L, Estimated Creat Clear 47, Estimated GFR 133, Est GFR ( Amer) 161, Glucose 102 H, Calcium 8.1 L, Blood Type A Positive, Antibody Screen Negative 05/28/24 08:46: WBC 16.6 H, RBC 3.48 L, Hgb 11.2 L, Hct 33.4 L, MCV 96.0 H, MCH 32.2 H, MCHC 33.5, RDW 14.4, Plt Count 280, MPV 9.2, Neut % (Auto) 98.0 H, Lymph % (Auto) 0.7 L, [place] % (Auto) 0.7 L, Eos % (Auto) 0.0 L, Baso % (Auto) 0.1, Neut # (Auto) 16.3 H, Lymph # (Auto) 0.1 L, [place] # (Auto) 0.1, Eos # (Auto) 0.0, Baso # (Auto) 0.0, Sodium 135 L, Potassium 4.4, Chloride 103, Carbon Dioxide 27, Anion Gap 9.4, BUN 17, Creatinine 0.50 L, Estimated Creat Clear 47, Estimated GFR 164, Est GFR ( Amer) 199 D, Glucose 129 H D, Calcium 8.0 L I & O for Labs for Last 24 Hours: Intake & Output 05/27/24 05/28/24 05/29/24 05/30/24 23:59 23:59 23:59 23:59 Intake Total 1000 / 1000 1600 / 1600 2120 / 2120 Output Total 0 / 0 300 / 300 4400 / 5100 1300 / 1300 Balance 0 / 0 700 / 700 -2800 / -3500 820 / 820 Weight 106 lb 6 oz 106 lb 6.4 oz 119 lb 14.903 oz 120 lb 9.6 oz Intake & Output 05/25/24 05/26/24 05/27/24 05/28/24 23:59 23:59 23:59 23:59 Output Total 0 / 0 300 / 300 Balance 0 / 0 -300 / -300 Weight 106 lb 6 oz 106 lb 6.4 oz Constitutional: Present mild distress Head: Present normocephalic and atraumatic ENT: Present normal exam, normal oropharynx and mucous membranes moist Neck: Present normal inspection and full ROM Respiratory: Present rhonchi, diminished air movement and able to speak in complete sentences; Absent prolonged expiratory phase, wheezes or crackles Cardiac: Present S1/S2, Tachycardia and radial pulses present GI: Present soft and distention; Absent tenderness or guarding Skin: Present intact; Absent cyanosis or jaundice Neuro: Present alert, awake and oriented x 3 Extremities: Present normal inspection; Absent clubbing or cyanosis Psychiatric: Present normal affect and cooperative Assessment and Plan *Assessment and plan (1) Malignant pleural effusion: Status: Acute Category: Medical Code(s): J91.0 - Malignant pleural effusion Plan Mr. Magallon is a 68-year-old male history of COPD lung cancer recently presented to the hospital for large right-sided pleural effusion status postthoracentesis a hydropneumothorax improved, discharged home on IV antibiotics for Pseudomonas pneumonia completed 7-day course 05/24/2024 presented to the ER status post fall. Patient admits improving cough and productive phlegm. Denies any subjective fevers. Stable respiratory symptoms. Chest x-ray upon admission bilateral infiltrate relatively stable from prior. Small to moderate right pleural effusion noted. No obvious evidence of pneumothorax. Neutrophilic predominant leukocytosis on admission. Afebrile. Hemodynamically stable. Continue to receive dexamethasone 4 mg p.o. twice daily, home medication. Interval update: No acute respiratory vents overnight. Stable oxygen requirements. Improving leukocytosis Plan: Continue DuoNebs every 6 hours along with Pulmicort every 12 scheduled Will hold off on initiating antibiotics at this point of time. Continue oxygen supplementation to maintain O2 saturation below 90% and above, currently on baseline 3 L nasal cannula oxygen supplementation. Incentive spirometry and flutter valve # Thank you for involving pulmonary in this patient care. Will follow the patient in pulmonary clinic after rehab.
--- NOTE | 2024-05-30 10:12 | PC.NURSE ---
Stage two to coccyx with dressing changes of mepilex when needed.
[2024-05-30] MEDS: SODIUM CHLORIDE 3% 15ML NEB 3 ML IH (11:12)
[2024-05-30] MEDS: FLUTICASONE/UMECLIDIN/VILANTER 100/62.5/25MCG INHALER 1 PUFF IH (11:38)
--- NOTE | 2024-05-30 15:21 | EXP.ORTH.PN ---
Subjective *Date: 05/30/24 *Time: 15:21 Interval history: Patient seen sitting comfortably in chair. Denies BELTRAN, dizziness, CP, SOB, n/v, paresthesias, calf pain. States pain is well controlled. Ortho Exam (Inpt) Vital signs and Labs for Last 24 Hours: Temp Pulse Resp BP Pulse Ox O2 Del Method O2 Flow Rate 98.3 F 99 H 18 138/66 92 L Nasal Cannula 3 05/30/24 12:00 05/30/24 12:00 05/30/24 12:05/30/24 12:05/30/24 12:00 05/30/24 14:14 05/30/24 14:14 Laboratory Results - last 24 hr 05/30/24 05:26: WBC 12.6 H D, RBC 2.99 L, Hgb 9.7 L, Hct 28.1 L, MCV 94.0, MCH 32.4 H, MCHC 34.5, RDW 14.7, Plt Count 246, MPV 9.4, Neut % (Auto) 95.2 H, Lymph % (Auto) 1.6 L, [place] % (Auto) 2.8, Eos % (Auto) 0.0 L, Baso % (Auto) 0.1, Neut # (Auto) 12.0 H, Lymph # (Auto) 0.2 L, [place] # (Auto) 0.4, Eos # (Auto) 0.0, Baso # (Auto) 0.0, Total Counted 100, Neutrophils % (Manual) 98 H, Lymphocytes % (Manual) 2 L, Platelet Estimate Normal, RBC Morphology Normal, Sodium 136, Potassium 4.5, Chloride 103, Carbon Dioxide 30, Anion Gap 7.5, BUN 15, Creatinine 0.60 L, Estimated Creat Clear 53, Estimated GFR 133, Est GFR ( Amer) 161, Glucose 112 H, Calcium 8.2 L I & O for Labs for Last 24 Hours: Intake & Output 05/27/24 05/28/24 05/29/24 05/30/24 23:59 23:59 23:59 23:59 Intake Total 1000 / 1000 1600 / 1600 2120 / 2120 Output Total 0 / 0 300 / 300 4400 / 5100 1800 / 1800 Balance 0 / 0 700 / 700 -2800 / -3500 320 / 320 Weight 48.251 kg 48.262 kg 54.4 kg 54.703 kg Additional findings:: R hip: Dressing C/D/I. NVID with <2 sec caprefill, SILT 1st DWS/PA, + motor EHL/FHL/GS/TA. Calves and thigh SNT. Assessment and Plan *Assessment and plan (1) Closed intertrochanteric fracture of right femur: Status: Acute Category: Medical Code(s): S72.141A - Displaced intertrochanteric fracture of right femur, initial encounter for closed fracture Plan WBAT to RLE, ambulate with device PRN. Pain control PRN medical team DVT ppx Ice to R hip PRN pain Discussed with patient about changing dressing, deferred at the moment due to positioning. I d/w nurse to change before discharge today with DSDs and tape. Follow up in clinic in 2 weeks for post-op wound check and staple removal. Will continue to follow if not discharged today. Thank you for this consult.
--- NOTE | 2024-05-30 17:35 | PC.NURSE ---
Aox 4, up in the chair several times today and tolerated, L UA picc to be removed tomorrow before d/c, dressing to right hip to be changed tomorrow before d/c. Leave xeroform in place and use gauze 4x4 and abd pad with tape to right hip. Supplies for dressing change and picc are in patient's room. 02-3L NC, purewick in place, pain meds given twice today, pt to be d/c to [place] tomorrow.
[2024-05-31] VITALS: BP 126/63; PULSE 97; RESP 16; TEMP 37.4; O2SAT 92
--- NOTE | 2024-05-31 03:25 | PC.NURSE ---
patient is alert and oriented with episodes of confusion, patient has complained of pain and was medicated per mar with favorable outcome, diminished lung sounds present upon auscultation, tolerating 3L of O2 per NC with O2 sats >90%, dressing noted to right hip C/D/I
[2024-05-31 04:00] VITALS: BP 148/76; PULSE 100; RESP 16; TEMP 36.5; O2SAT 93; BMI 18.6
[2024-05-31] MEDS: OXYCODONE 5MG IMMEDIATE RELEASE TABLET 5 MG PO (04:14)
--- NOTE | 2024-05-31 04:43 | PC.NURSE ---
at 0400 this nurse checked on patient, patient appeared confused and had taken dressing off of hip incision and removed multiple shiloh, wound appear to be closed and small amount of dry blood was noted, patient was given pain medication per jun, this nurse then applied steri strips to incision and redressed wound, patient was educated to not remove dressing, warehouse administrative assistant and Dr Acharya were notified, Dr Acharya stated he would assess it
[2024-05-31] MEDS: FLUTICASONE/UMECLIDIN/VILANTER 100/62.5/25MCG INHALER 1 PUFF IH (06:33)
[2024-05-31 08:00] VITALS: BP 111/45; PULSE 104; RESP 17; TEMP 36.6; O2SAT 92
--- NOTE | 2024-05-31 08:09 | EXP.ACUTE.PN ---
Subjective *Date: 05/31/24 *Time: 08:09 Interval history: Patient is feeling well this am. He does have some pain in the hip. He has not been up yet this am but is eating breakfast. His nurse says he became confused during the night and took off the dressing on his leg and pulled out some of the shiloh. Dr. Acharya was informed. Medical Exam Vital signs and Labs for Last 24 Hours: Vital Signs Temp Pulse Pulse Resp BP Pulse Ox O2 Del Method 05/31/24 06:59 Nasal Cannula 05/31/24 05:00 Nasal Cannula 05/31/24 04:00 97.7 F 100 H 16 148/76 H 93 L Nasal Cannula 05/31/24 03:00 Nasal Cannula 05/31/24 01:00 Nasal Cannula 05/31/24 00:00 99.3 F 97 H 16 126/63 92 L Nasal Cannula 05/30/24 23:00 Nasal Cannula 05/30/24 21:00 Nasal Cannula 05/30/24 20:00 Nasal Cannula 05/30/24 20:00 98.5 F 95 H 16 133/62 92 L Nasal Cannula 05/30/24 18:06 Nasal Cannula 05/30/24 16:00 98.4 F 114 H 20 133/63 90 L Nasal Cannula 05/30/24 14:14 Nasal Cannula 05/30/24 12:32 Nasal Cannula 05/30/24 12:00 98.3 F 99 H 18 138/66 92 L Nasal Cannula 05/30/24 11:39 94 L Nasal Cannula 05/30/24 11:13 88 18 05/30/24 10:01 Nasal Cannula 05/30/24 08:46 Nasal Cannula O2 Flow Rate 05/31/24 06:59 3 05/31/24 05:00 3 05/31/24 04:00 3 05/31/24 03:00 3 05/31/24 01:00 3 05/31/24 00:00 3 05/30/24 23:00 3 05/30/24 21:00 3 05/30/24 20:00 3 05/30/24 20:00 3 05/30/24 18:06 3 05/30/24 16:00 3 05/30/24 14:14 3 05/30/24 12:32 3 05/30/24 12:00 05/30/24 11:39 3 05/30/24 11:13 05/30/24 10:01 3 05/30/24 08:46 3 Intake and Output 05/30/24 05/31/24 05/31/24 19:59 03:59 11:59 Intake Total 600 / 840 240 / 840 Output Total 1250 / 3200 800 / 3200 1150 / 3200 Balance -650 / -2360 -560 / -2360 -1150 / -2360 Intake: Intake, Oral Amount 600 / 840 240 / 840 Output: Output, Urine Amount 1250 / 3200 800 / 3200 1150 / 3200 Other: Number of Unmeasured Voids 1 0 0 Weight 123 lb 4.8 oz Patient Weight 05/31/24 11:59 Weight 123 lb 4.8 oz I & O for Labs for Last 24 Hours: Intake & Output 05/28/24 05/29/24 05/30/24 05/31/24 11:59 11:59 11:59 11:59 Intake Total 1240 / 1240 3480 / 3480 840 / 840 Output Total 300 / 300 2200 / 2200 4000 / 4000 3200 / 3200 Balance -300 / -300 -960 / -960 -520 / -520 -2360 / -2360 Weight 106 lb 6.4 oz 119 lb 14.903 oz 120 lb 9.6 oz 123 lb 4.8 oz Constitutional: Present no acute distress Respiratory: Present CTA bilaterally; Absent wheezes Cardiac: Present Reg Rate and Rhythm GI: Present soft; Absent distention or tenderness Extremities: Absent edema Comment:: New dressing in place on right upper leg Skin: Present intact Neuro: Present alert, awake and oriented x 3 Assessment and Plan *Assessment and plan (1) Closed intertrochanteric fracture of right femur: Status: Acute Category: Medical Code(s): S72.141A - Displaced intertrochanteric fracture of right femur, initial encounter for closed fracture (2) Fracture of greater trochanter of right femur: Status: Acute Category: Medical Code(s): S72.111A - Displaced fracture of greater trochanter of right femur, initial encounter for closed fracture (3) Primary lung cancer: Status: Acute Category: Medical Code(s): C34.90 - Malignant neoplasm of unspecified part of unspecified bronchus or lung (4) Glaucoma of right eye: Status: Acute Category: Medical Code(s): H40.9 - Unspecified glaucoma (5) Severe protein-calorie malnutrition: Status: Acute Category: Medical Code(s): E43 - Unspecified severe protein-calorie malnutrition (6) COPD mixed type: Status: Chronic Category: Medical Code(s): J44.9 - Chronic obstructive pulmonary disease, unspecified (7) Smoking greater than 30 pack years: Status: Chronic Category: Social Hx Code(s): F17.210 - Nicotine dependence, cigarettes, uncomplicated (8) Malignant pleural effusion: Status: Acute Category: Medical Code(s): J91.0 - Malignant pleural effusion Plan Ortho and pulmonology to follow. Ortho will need to check wound as some of the shiloh have been removed. Patient has been approved for rehab. Will likely discharge soon. Will discuss with Dr. Lanza.
--- NOTE | 2024-05-31 09:45 | EXP.PULM.PN ---
Subjective *Date: 05/31/24 *Time: 13:48 Interval history: No acute respiratory vents overnight. Patient denies any new respiratory complaints Pulmonology Exam Inpatient Vital signs and Labs for Last 24 Hours: Temp Pulse Resp BP Pulse Ox O2 Del Method O2 Flow Rate 97.9 F 104 H 17 111/45 L 92 L Nasal Cannula 3 05/31/24 08:00 05/31/24 08:00 05/31/24 08:00 05/31/24 08:00 05/31/24 08:00 05/31/24 08:00 05/31/24 08:00 Temp Pulse Resp BP Pulse Ox O2 Del Method O2 Flow Rate 98.2 F 68 17 114/57 L 98 Nasal Cannula 3 05/28/24 08:00 05/28/24 08:00 05/28/24 08:00 05/28/24 08:00 05/28/24 08:00 05/28/24 08:49 05/28/24 08:49 Laboratory Results - last 24 hr 05/27/24 19:01: WBC 17.4 H, RBC 3.50 L, Hgb 11.2 L, Hct 33.2 L, MCV 94.9 H, MCH 32.0 H, MCHC 33.7, RDW 14.3, Plt Count 309, MPV 9.4, Neut % (Auto) 92.9 H, Lymph % (Auto) 2.3 L, [place] % (Auto) 3.0, Eos % (Auto) 1.2, Baso % (Auto) 0.2, Neut # (Auto) 16.1 H, Lymph # (Auto) 0.4 L, [place] # (Auto) 0.5, Eos # (Auto) 0.2, Baso # (Auto) 0.0, Total Counted 100, Neutrophils % (Manual) 96 H, Monocytes % (Manual) 2, Eosinophils % (Manual) 2, Platelet Estimate Normal, Stomatocytes 1+, PT 10.9, INR 0.99, Sodium 134 L, Potassium 3.7, Chloride 99, Carbon Dioxide 31 H, Anion Gap 7.7, BUN 18, Creatinine 0.60 L, Estimated Creat Clear 47, Estimated GFR 133, Est GFR ( Amer) 161, Glucose 102 H, Calcium 8.1 L, Blood Type A Positive, Antibody Screen Negative 05/28/24 08:46: WBC 16.6 H, RBC 3.48 L, Hgb 11.2 L, Hct 33.4 L, MCV 96.0 H, MCH 32.2 H, MCHC 33.5, RDW 14.4, Plt Count 280, MPV 9.2, Neut % (Auto) 98.0 H, Lymph % (Auto) 0.7 L, [place] % (Auto) 0.7 L, Eos % (Auto) 0.0 L, Baso % (Auto) 0.1, Neut # (Auto) 16.3 H, Lymph # (Auto) 0.1 L, [place] # (Auto) 0.1, Eos # (Auto) 0.0, Baso # (Auto) 0.0, Sodium 135 L, Potassium 4.4, Chloride 103, Carbon Dioxide 27, Anion Gap 9.4, BUN 17, Creatinine 0.50 L, Estimated Creat Clear 47, Estimated GFR 164, Est GFR ( Amer) 199 D, Glucose 129 H D, Calcium 8.0 L I & O for Labs for Last 24 Hours: Intake & Output 05/28/24 05/29/24 05/30/24 05/31/24 23:59 23:59 23:59 23:59 Intake Total 1000 / 1000 1600 / 1600 2720 / 2960 600 / 600 Output Total 300 / 300 4400 / 5100 3050 / 3850 1950 / 1950 Balance 700 / 700 -2800 / -3500 -330 / -890 -1350 / -1350 Weight 106 lb 6.4 oz 119 lb 14.903 oz 120 lb 9.6 oz 123 lb 4.8 oz Intake & Output 05/25/24 05/26/24 05/27/24 05/28/24 23:59 23:59 23:59 23:59 Output Total 0 / 0 300 / 300 Balance 0 / 0 -300 / -300 Weight 106 lb 6 oz 106 lb 6.4 oz Constitutional: Present mild distress Head: Present normocephalic and atraumatic ENT: Present normal exam, normal oropharynx and mucous membranes moist Neck: Present normal inspection and full ROM Respiratory: Present rhonchi, diminished air movement and able to speak in complete sentences; Absent prolonged expiratory phase, wheezes or crackles Cardiac: Present S1/S2, Tachycardia and radial pulses present GI: Present soft and distention; Absent tenderness or guarding Skin: Present intact; Absent cyanosis or jaundice Neuro: Present alert, awake and oriented x 3 Extremities: Present normal inspection; Absent clubbing or cyanosis Psychiatric: Present normal affect and cooperative Assessment and Plan *Assessment and plan (1) Malignant pleural effusion: Status: Acute Category: Medical Code(s): J91.0 - Malignant pleural effusion Plan Mr. Magallon is a 68-year-old male history of COPD lung cancer recently presented to the hospital for large right-sided pleural effusion status postthoracentesis a hydropneumothorax improved, discharged home on IV antibiotics for Pseudomonas pneumonia completed 7-day course 05/24/2024 presented to the ER status post fall. Patient admits improving cough and productive phlegm. Denies any subjective fevers. Stable respiratory symptoms. Chest x-ray upon admission bilateral infiltrate relatively stable from prior. Small to moderate right pleural effusion noted. No obvious evidence of pneumothorax. Neutrophilic predominant leukocytosis on admission. Afebrile. Hemodynamically stable. Continue to receive dexamethasone 4 mg p.o. twice daily, home medication. Interval update: No acute respiratory vents overnight. Stable oxygen requirements. Sutures from his most recent chest tube removed today. Well-healed wound. Plan: Continue DuoNebs every 6 hours along with Pulmicort every 12 scheduled No need for antibiotics at this point of time. Continue oxygen supplementation to maintain O2 saturation below 90% and above, currently on baseline 3 L nasal cannula oxygen supplementation. Incentive spirometry and flutter valve # Thank you for involving pulmonary in this patient care. Will follow the patient in pulmonary clinic after rehab.
[2024-05-31] MEDS: ASPIRIN 81MG CHEWABLE TABLET 81 MG PO (10:10)
[2024-05-31] MEDS: DEXAMETHASONE 4MG TABLET 4 MG PO (10:11)
[2024-05-31] MEDS: GABAPENTIN 600MG TABLET 600 MG PO ×2 (10:11→14:12)
--- NOTE | 2024-05-31 11:47 | PC.NURSE ---
MD Acharya assessed pt and placed new DSG.
--- NOTE | 2024-05-31 11:47 | EXP.ORTH.PN ---
Subjective *Date: 05/31/24 *Time: 11:47 Interval history: Patient doing okay. Early this morning patient removed his own dressing and removed the shiloh from the incision. It was immediately cleaned and Steri-Strips were placed. Patient does remember being confused and removing the dressing. Disposition to [facility] for rehab today. Minimal pain. Ortho Exam (Inpt) Vital signs and Labs for Last 24 Hours: Temp Pulse Resp BP Pulse Ox O2 Del Method O2 Flow Rate 97.9 F 104 H 17 111/45 L 92 L Nasal Cannula 3 05/31/24 08:00 05/31/24 08:00 05/31/24 08:00 05/31/24 08:00 05/31/24 08:00 05/31/24 09:00 05/31/24 09:00 I & O for Labs for Last 24 Hours: Intake & Output 05/28/24 05/29/24 05/30/24 05/31/24 23:59 23:59 23:59 23:59 Intake Total 1000 / 1000 1600 / 1600 2720 / 2960 600 / 600 Output Total 300 / 300 4400 / 5100 3050 / 3850 2250 / 2250 Balance 700 / 700 -2800 / -3500 -330 / -890 -1650 / -1650 Weight 106 lb 6.4 oz 119 lb 14.903 oz 120 lb 9.6 oz 123 lb 4.8 oz Additional findings:: Right hip: The Steri-Strips were removed. There was indeed the shiloh missing from the 2 inferior incisions the shiloh were intact at the superior incision. The Steri-Strips were removed the wound was thoroughly cleansed with ChloraPrep. No drainage or active infection. Assessment and Plan *Assessment and plan (1) Closed intertrochanteric fracture of right femur: Problem Comment: Status post cephalomedullary nailing right proximal femur Status: Acute Qualifiers: Encounter type: subsequent encounter Fracture alignment: nondisplaced Fracture healing: with routine healing Qualified Code(s): S72.144D - Nondisplaced intertrochanteric fracture of right femur, subsequent encounter for closed fracture with routine healing Category: Medical Code(s): S72.141A - Displaced intertrochanteric fracture of right femur, initial encounter for closed fracture Plan The wound was thoroughly cleansed. The shiloh were removed that were remaining. Reprepped with ChloraPrep. Using the Dermabond Prineo dressing. The new dressing was placed under standard Prineo instructions. Wound was benign dressing was replaced. Patient's plan for discharge to rehab today which is appropriate follow-up in the clinic 3 weeks.
--- NOTE | 2024-05-31 12:18 | EXP.DC.SUM ---
General Admission date:: 05/27/24 Discharge date: 05/31/24 HPI HPI HPI: 68-year-old male has a history of lung cancer with malignant pleural effusion. He was recently hospitalized at [facility] with chest tube placement after thoracentesis and a pneumothorax. He returns to ER today after a fall. He was getting out of bed around 5 AM today, 05/27. He fell onto the floor while doing so. Did not hit his head. Fell right onto his right hip and has been having significant pain since. His helped him get in the bed, but has not been able to use the leg almost at all today, so he came in for evaluation. The pain is moderate at rest, severe in intensity when moving the right hip at all. No knee or ankle pain. On arrival, patient hemodynamically stable, alert, oriented x4, appropriate, GCS 15, moving all extremities spontaneously. Right lower extremity pulses and neurologic exam normal. Significant tenderness with internal rotation and lateral compression of hip at level of greater trochanter. No outward signs of abnormality. Moderate right inguinal fold tenderness. His initial blood pressure 114/59, heart rate 88, saturation 98% on 3 L nasal cannula (baseline). Patient was given Zofran and Dilaudid. In the ER the x-ray was read as intertrochanteric fracture right femur with nondisplacement. He was admitted with this diagnosis. BUT REVIEW OF THE X-RAY AND RADIOLOGIST'S REPORT SHOWS A subtle greater trochanteric fracture. The ER contacted Dr. Acharya, orthopedic surgeon, who recommended further evaluation including MRI of the right hip. Hospital Course Hospital Course Hospital Course: The patient was admitted and an MRI was ordered and Ortho was consulted. The MRI showed an extension of the fracture into the lesser trochanter classifying this as an intertrochanteric fracture. Dr. Acharya therefore thought the patient will require stabilization with cephalomedullary nailing of his femur as this would allow for weightbearing in future. The patient had a chest x-ray prior to surgery and it showed some reaccumulation of pleural fluid, therefore pulmonology was consulted. Pulmonology saw the patient and felt his chest x-ray was relatively stable from his previous chest x-ray. The patient had cephalomedullary nailing of the right proximal femur on 05/28/24 and tolerated the procedure well. He was evaluated and it was felt he would need rehab placement. He was followed by Ortho and was to be weightbearing as tolerated to the right lower extremity and to ambulate with a device as needed. He used his incentive spirometer and flutter valve. By 05/30/2024, he was able to get up in a chair and plans were made for him to be discharged to [facility] for rehab. The patient did have an incident of confusion during the evening of 05/31/2024 and pulled out some of his shiloh. This was checked by Dr. Lanza and Steri-Strips were placed. There was no erythema or drainage. He was seen by Ortho. The wound was thoroughly cleaned and the shiloh that were remaining were removed. It was reprepped with ChloraPrep and they applied a Dermabond dressing. They felt he was stable for discharge and will follow-up in the Ortho clinic in 3 weeks. Exam Data for Last 24 hours Vital signs and Labs for Last 24 Hours: Temp Pulse Resp BP Pulse Ox O2 Del Method O2 Flow Rate 97.9 F 104 H 17 111/45 L 92 L Nasal Cannula 3 05/31/24 08:00 05/31/24 08:00 05/31/24 08:00 05/31/24 08:00 05/31/24 08:00 05/31/24 11:00 05/31/24 11:00 I & O for Last 24 hours: Intake & Output 05/29/24 05/30/24 05/31/24 06/01/24 11:59 11:59 11:59 11:59 Intake Total 1240 / 1240 3480 / 3480 1200 / 1200 Output Total 2200 / 2200 4000 / 4000 3500 / 3500 Balance -960 / -960 -520 / -520 -2300 / -2300 Weight 119 lb 14.903 oz 120 lb 9.6 oz 123 lb 4.8 oz Narrative: Constitutional Constitutional: no acute distress and cachectic *Routine HEENT Exam Head: Present normocephalic Eye: Present other (Opacification of the right cornea due to glaucoma) ENT: Present mucous membranes moist *Routine Neck Exam Neck: Present supple and full ROM Routine Chest/Breast/Axilla Exam Chest wall: Absent tenderness *Routine Respiratory Exam Respiratory: Present decreased breath sounds (But moving air bilaterally including on the right side where there was previous effusion and pneumothorax) *Routine Cardiovascular Exam Cardiovascular: Present RRR *Routine Abdominal Exam Abdominal: Present soft; Absent tenderness or distended *Routine Rectal Exam Rectal:: deferred *Routine Genitalia Exam Genitalia:: deferred *Routine Extremities Exam Extremities: Present full ROM (Pain in the right hip with movement. No leg length discrepancy or rotation.), pulses intact and normal capillary refill; Absent edema Routine Back/Spine/Pelvis Exam Back/Spine: Absent CVA tenderness Pelvis: Present sacral tenderness (Sacral decubitus healing in with granulation tissue) *Routine Skin Exam Skin: Present wounds (Sacral decubitus) *Routine Neurological Exam Neurological: Present alert, oriented X3 and CN II-XII intact Routine Psychiatric Exam Psychiatric: Present normal affect and cooperative DS: Diagnosis Discharge Diagnosis (1) Closed intertrochanteric fracture of right femur: Status: Acute Code(s): S72.141A - Displaced intertrochanteric fracture of right femur, initial encounter for closed fracture Qualifiers: Encounter type: subsequent encounter Fracture alignment: nondisplaced Fracture healing: with routine healing Qualified Code(s): S72.144D - Nondisplaced intertrochanteric fracture of right femur, subsequent encounter for closed fracture with routine healing Problem details: Status post cephalomedullary nailing right proximal femur Meds Home Medications and Allergies Home Medications ?Medication ?Instructions ?Recorded ?Confirmed ?Type diazepam 10 mg tablet 10 mg PO TIDP PRN Anxiety 09/25/23 05/27/24 History gabapentin 600 mg tablet 600 mg PO QID 09/25/23 05/27/24 History levocetirizine 5 mg tablet 5 mg PO DAILY 09/25/23 05/27/24 History oxycodone 5 mg tablet 5 mg PO Q6HP PRN Severe Pain 09/25/23 05/27/24 History (Scale Score 7-10) sulindac 200 mg tablet 200 mg PO BID 09/25/23 05/27/24 History megestrol 400 mg/10 mL (40 mg/mL) 400 mg (10 mL) PO DAILY #250 mL 09/28/23 05/27/24 Rx oral suspension dexamethasone 4 mg tablet 4 mg PO BID #40 tabs 05/22/24 05/27/24 Rx fluticasone fur. 100 mcg-umeclid 1 inh inhalation DAILY #60 ea 05/31/24 Rx 62.5 mcg-vilant 25 mcg inhalat.powder (Trelegy Ellipta) ipratropium 0.5 mg-albuterol 3 mg 3 ml inhalation Q6HP PRN Shortness 05/31/24 Rx (2.5 mg base)/3 mL nebulization Of Breath #180 mL soln New Prescriptions to Start Prescriptions: [id number] [Trelegy Ellipta] Clyde Lanza ipratropium-albuterol Clyde Lanza Allergies Allergy/AdvReac Type Severity Reaction Status Date / Time Iodinated Contrast Media Allergy Intermediate Hives Verified 05/08/24 09:58 Discharge Plan Disposition Patient Disposition: er [facility] Discharge Order Discharge Orders: Discharge Order (Routine); Ordered 05/31/24 Ordered By: Clyde Lanza Follow up Plan Follow up with: Clyde Lanza MD [Staff Physician] - 06/13/24 (To be admitted and [place] [facility] [place] Art Acharya DO [Staff Physician] - 06/06/24 1:15 pm Nimesh Mahmood MD [Staff Physician] - 06/18/24 10:45 am Jere Olivares MD [Physician] - 06/25/24 1:00 pm Prescriptions/Medication Reconciliation: New ipratropium-albuterol 0.5 mg-3 mg(2.5 mg base)/3 mL Solution For Nebulization 3 ml inhalation Q6HP PRN (Reason: Shortness Of Breath) Qty: 180 3RF Trelegy Ellipta 100-62.5-25 mcg Blister With Device 1 inh inhalation DAILY Qty: 60 3RF Continued dexamethasone 4 mg Tablet 4 mg PO BID Qty: 40 1RF gabapentin 600 mg Tablet 600 mg PO QID diazepam 10 mg Tablet 10 mg PO TIDP PRN (Reason: Anxiety) sulindac 200 mg Tablet 200 mg PO BID oxycodone 5 mg Tablet 5 mg PO Q6HP PRN (Reason: Severe Pain (Scale Score 7-10)) levocetirizine 5 mg Tablet 5 mg PO DAILY megestrol 400 mg/10 mL (40 mg/mL) Suspension 400 mg PO DAILY Qty: 250 5RF Discontinued Stiolto Respimat 2.5-2.5 mcg/actuation mist 2 puff inhalation DAILY 90 Days Qty: 4 2RF Problem Reconciliation Problems Reviewed?: Yes Patient Discharge Instructions ACTIVITY: Limited activity and Up with assistance DIET: regular diet Patient Instructions: Femoral Fracture, DI for Hip Replacement, DI for Surgical Site Infection Print Language: [place] Providers Primary Care Provider: Fred Lanza Admit Provider: Clyde Lanza Attending Provider: Clyde Lanza
== END 2024-05-31 14:55 | DRG 480 ==
LOC: ER 16:26 → 2ND 16:31
PROVIDERS: Orthopaedic Surgery; Physician Assistant Surgical; Admitting Provider Family Medicine; Emergency Provider Emergency Medicine; PCP Psychiatry & Neurology Sleep Medicine; Visit Provider Family Medicine
PROC: 0QH606Z Insertion of Intramedullary Internal Fixation Device into Right Upper Femur, Open Approach (ICD-10-PCS; principal; 2024-05-28 15:30)
DX: S72.144A Nondisplaced intertrochanteric fracture of right femur, initial encounter for closed fracture (principal); E43 Unspecified severe protein-calorie malnutrition; Z68.1 Body mass index [BMI] 19.9 or less, adult; L89.159 Pressure ulcer of sacral region, unspecified stage; J44.9 Chronic obstructive pulmonary disease, unspecified; W06.XXXA Fall from bed, initial encounter; Z85.118 Personal history of other malignant neoplasm of bronchus and lung; Z99.81 Dependence on supplemental oxygen; Z87.891 Personal history of nicotine dependence; Z79.899 Other long term (current) drug therapy
CPT/HCPCS: 36415; 71046; 72192; 73502; 73552; 73721; 76000; 80048; 80053; 81001; 85007; 85025; 85610; 86850; 94640; 94760; 94761; 97110; 97162; 97166; 97530; 99285; C1713; C1769; C1776; J0690; J1171; J1644; J1885; J2405; J2704; J7030; J7620; J8540

== ENCOUNTER 2024-06-05 20:54 | Emergency (ER) | payer MEDICARE, SELFPAY ==
[2024-06-05] VITALS (9 sets, daily range): BP systolic 91–121; BP diastolic 53–74; PULSE 72–95; RESP 14–21; TEMP 36.6; O2SAT 92–96; BMI 11.7
--- NOTE | 2024-06-05 21:23 | XR_ITS ---
PROCEDURE INFORMATION: Exam: XR Chest Exam date and time: 06/05/2024 9:30 PM Age: 68 years old Clinical indication: Wheezing; Additional info: Decreased R lung sounds TECHNIQUE: Imaging protocol: Radiologic exam of the chest. Views: 1 view. COMPARISON: CR XR CHEST 2V 05/27/2024 5:49 PM FINDINGS: Lungs: The lungs are hyperinflated. There are numerous small nodular opacities bilaterally. No focal consolidation. Pleural spaces: Unremarkable. No pleural effusion. No pneumothorax. Heart/Mediastinum: Unremarkable. No cardiomegaly. Bones/joints: Unremarkable. IMPRESSION: Overall improved aeration. Stable chronic granulomatous changes and COPD.
--- NOTE | 2024-06-05 21:40 | PC.NURSE ---
rounding done. Patient resting
--- NOTE | 2024-06-05 21:41 | HMH.EDGENADL ---
Discharge Plan Disposition Patient Disposition: Home, Self-Care Chief Complaint: Recheck/Abnormal Lab/Rx Prescriptions Prescriptions: No Action dexamethasone 4 mg Tablet 4 mg PO BID Qty: 40 1RF ipratropium-albuterol 0.5 mg-3 mg(2.5 mg base)/3 mL Solution For Nebulization 3 ml inhalation Q6HP PRN (Reason: Shortness Of Breath) Qty: 180 3RF Trelegy Ellipta 100-62.5-25 mcg Blister With Device 1 inh inhalation DAILY Qty: 60 3RF gabapentin 600 mg Tablet 600 mg PO QID diazepam 10 mg Tablet 10 mg PO TIDP PRN (Reason: Anxiety) sulindac 200 mg Tablet 200 mg PO BID oxycodone 5 mg Tablet 5 mg PO Q6HP PRN (Reason: Severe Pain (Scale Score 7-10)) levocetirizine 5 mg Tablet 5 mg PO DAILY megestrol 400 mg/10 mL (40 mg/mL) Suspension 400 mg PO DAILY Qty: 250 5RF Referrals Follow up/Referrals: Fred Lanza MD [Primary Care Provider] - See instructions Activity Restrictions/Add. Instructions Additional Instructions/Restrictions: Call your family doctor to establish care for this visit to the emergency department and schedule follow-up within 48 hours to ensure improvement. If you have any worsening of your condition or any other concerning signs or symptoms, return to the emergency department or your primary care doctor for further evaluation. Do not take gabapentin and oxycodone at the same time. Be sure to stay plenty hydrated. Clinical Impressions Clinical Impression: Acute alteration in mental status Print Language Print Language: Georgian Discharge ED Provider: Jonathan Roberts General Adult HPI General Chief complaint: Recheck/Abnormal Lab/Rx Stated complaint: Lethargic Time Seen by Provider: 06/05/24 21:02 Mode of Arrival: EMS Source of Information: Patient and EMS Limitations: No Limitations Description of Symptoms (Recalled from ER Triage Doc. by RN): Per [facility], patient was started on new medication today (Oxy and Neurontin) and has been lethargic. No complaints per patient. History of Present Illness HPI narrative: Please note that above description of symptoms, in this electronic medical record under categorization of recalled from ER triage doctor by RN are reflective of an initial nursing assessment, however, is not reflective of my full history and physical exam that was personally taken and clarified. Consequentially, this preceding description of symptoms, which may include the patient's categorized chief complaint in the EMR, do not reflect my personal clinical impression, and the ultimate description of history of present illness and patient stated complaints should be deferred to this section of the note. Unless stated otherwise or congruent with this section of the note, additional signs, symptoms, or incongruence should be interpreted as inaccurate with my clinical impression. Related Data Home Medications ?Medication ?Instructions ?Recorded ?Confirmed diazepam 10 mg tablet 10 mg PO TIDP PRN Anxiety 09/25/23 06/05/24 gabapentin 600 mg tablet 600 mg PO QID 09/25/23 06/05/24 levocetirizine 5 mg tablet 5 mg PO DAILY 09/25/23 06/05/24 oxycodone 5 mg tablet 5 mg PO Q6HP PRN Severe Pain 09/25/23 06/05/24 (Scale Score 7-10) sulindac 200 mg tablet 200 mg PO BID 09/25/23 06/05/24 Previous Rx's ?Medication ?Instructions ?Recorded megestrol 400 mg/10 mL (40 mg/mL) 400 mg (10 mL) PO DAILY #250 mL 09/28/23 oral suspension dexamethasone 4 mg tablet 4 mg PO BID #40 tabs 05/22/24 fluticasone fur. 100 mcg-umeclid 1 inh inhalation DAILY #60 ea 05/31/24 62.5 mcg-vilant 25 mcg inhalat.powder (Trelegy Ellipta) ipratropium 0.5 mg-albuterol 3 mg 3 ml inhalation Q6HP PRN Shortness 05/31/24 (2.5 mg base)/3 mL nebulization Of Breath #180 mL soln Allergies Allergy/AdvReac Type Severity Reaction Status Date / Time Iodinated Contrast Media Allergy Intermediate Hives Verified 05/08/24 09:58 [facility] Disclaimer: The information contained in this section may have been updated after the patient was seen, as this information can be updated by other users. Medical History (Updated 06/05/24 @ 22:16 by Jonathan Roberts MD) Fracture of greater trochanter of right femur Acute esophageal obstruction Food impaction of esophagus Acute left-sided weakness Left sided numbness Malignant pleural effusion Pneumothorax Chest tube in place Primary lung cancer Pleural effusion on right Parotid nodule Pneumonia Dysphagia Dyspnea on exertion Lung cancer Tobacco abuse disorder COPD mixed type Mediastinal lymphadenopathy Hilar lymphadenopathy Multiple lung nodules on CT Smoking greater than 30 pack years Esophageal obstruction due to food impaction Surgical History History of colonoscopy History of eye surgery History of back surgery Family History Other Leukemia Lung cancer Social History (Updated 05/27/24 @ 18:49 by Roxi Robertson RN) Smoking Status: Former smoker how long ago did patient quit smokin weeks second hand exposure: Yes alcohol intake: never substance use type: denies use current occupational status: retired Travel in the last 8 weeks: None household members: spouse housing: house lives independently: No marital status: education level: high school service: No current occupational exposures/hazards: No caffeine: Yes firearms in home: No do you feel safe at home: Yes victim of physical abuse: No victim of emotional abuse: No victim of sexual abuse: No would you like helpful sources: No Have you lived/traveled outside [place] in past 30 days?: No Contact w/someone who lives/traveled outside US past 30 days?: No Exposure to someone with infectious disease in past 14 days?: No Do you have a fever (greater than 100.4 F or 38 C)?: No Have you tested positive for COVID-19: No Exposed to someone with COVID-19 in past 14 days?: No Do you have a sore throat?: No Do you have a cough?: No Do you have any weakness?: No Do you have any diarrhea?: No Are you experiencing any unusual bleeding?: No Do you have any muscle aches/pain?: No Do you have any abdominal pain?: No Are you experiencing loss of taste or smell?: No Other Medical History Have you received the Flu Vaccine for this season: No Have you received the Pneumonia Vaccine: No ROS Obtained: Yes All systems reviewed & no additional complaints except as documented Physical Exam General General appearance: alert, in no apparent distress and cachectic Head Head exam: atraumatic and normocephalic Eye Eye exam: Present normal appearance, PERRL and EOMI Neck Neck exam: Present normal inspection, full ROM and trachea midline Respiratory Respiratory exam: Present other (Decreased right-sided breath sounds); Absent respiratory distress, wheezes, stridor, accessory muscle use or prolonged expiratory phase Cardiovascular Cardiovascular exam: Present regular rate, normal rhythm and other (Pulses equal symmetric in upper and lower extremities) Abdominal Exam Abdominal exam: Present soft; Absent distention, tenderness or pulsatile mass Extremities Exam Extremities exam: Absent edema Neurological Exam Neurological exam: Present alert, oriented X3 and CN II-XII intact; Absent motor sensory deficit Skin Skin exam: Present warm and dry; Absent diaphoresis or erythema Medical Decision Making Medical Records Medical records reviewed: Yes I reviewed the patient's medical records. Screening: Per USPSTF and CDC recommendations, given the prevalence of disease in our region, it is our hospital?s policy to screen for HIV and viral Hepatitis for all patients aged 18 and over and those with ongoing risk factors. Homero Inquiry Pt receiving controlled substance: No Homero was queried for this patient: No Vital Signs: 06/05/24 20:54 06/05/24 21:00 06/05/24 21:15 Temperature 97.9 F Temperature Source Oral Pulse Rate 86 95 H Pulse Rate [Right Radial] 89 Respiratory Rate 14 14 21 Blood Pressure 106/53 L Blood Pressure [Right Arm] 111/68 Blood Pressure Mean [Right Arm] 82 Blood Pressure Source [Right Arm] Automatic Cuff Blood Pressure Position [Right Arm] Supine 02 Sat by Pulse Oximetry 94 L 94 L 92 L Oxygen Delivery Method Nasal Cannula Oxygen Flow Rate (LPM) 3 06/05/24 21:30 Temperature Temperature Source Pulse Rate 92 H Pulse Rate [Right Radial] Respiratory Rate 14 Blood Pressure 91/55 L Blood Pressure [Right Arm] Blood Pressure Mean [Right Arm] Blood Pressure Source [Right Arm] Blood Pressure Position [Right Arm] 02 Sat by Pulse Oximetry 93 L Oxygen Delivery Method Nasal Cannula Oxygen Flow Rate (LPM) 2.5 Lab Data Lab Results 06/05/24 21:21: WBC 9.2, RBC 3.85 L, Hgb 12.2 L, Hct 36.2 L, MCV 94.0, MCH 31.7 H, MCHC 33.7, RDW 15.3, Plt Count 212, MPV 10.2, Neut % (Auto) 93.4 H, Lymph % (Auto) 2.7 L, Clayton % (Auto) 3.4, Eos % (Auto) 0.0 L, Baso % (Auto) 0.1, Neut # (Auto) 8.6 H, Lymph # (Auto) 0.3 L, Clayton # (Auto) 0.3, Eos # (Auto) 0.0, Baso # (Auto) 0.0 06/05/24 21:23: VBG pH 7.42 H, VBG pCO2 45.2, VBG pO2 43.0 H, VBG HCO3 28.4, VBG Total CO2 29.8 H, VBG O2 Saturation 77.5 H, VBG Base Excess 3.9 H, VBG Lactic Acid 1.3 06/05/24 21:21 Orders (Tests/Meds): ORDERS Category Date Time Status CXR --portable [XR chest portable] Stat Exams 06/05/24 21:23 Completed CBC w/Auto Diff [Complete Blood Count Auto Diff] Stat Lab 06/05/24 21:21 Results CMP [Comprehensive Metabolic Panel] Stat Lab 06/05/24 21:21 Received VBG [Venous Blood Gas] Stat RT 06/05/24 21:23 Completed Medical Decision Narrative: Is a 68-year-old male history of hypertension, hyperlipidemia, COPD, lung cancer, recent fall with hip fracture currently in rehab presenting with concern for altered mental status. Patient was at the [facility], had received his gabapentin and oxycodone shortly before becoming unresponsive. EMS was contacted and patient was brought to the emergency department. And route to the hospital, EMS states the patient was alert, oriented, appropriate for them. No concerns from their end. On arrival to the emergency department, patient also has no complaints. No chest pain, shortness of breath, cough, nausea, vomiting, fevers, chills. States that rehab is actually been going pretty well. Unsure why he was sent to the emergency department and feels that he does not need to be here. History was obtained via conversation with patient, family, EMS. On arrival, patient hemodynamically stable, alert, oriented x4, appropriate, GCS 15, moving all extremities spontaneously, pupils equal and reactive to light. Full physical exam performed and significant for alert, oriented, chronically ill male who is in no acute distress. Lungs are clear primarily on the left, decreased breath sounds on the right. Abdomen soft, nontender, nondistended. Patient on his 3 L nasal cannula. Differential includes pneumonia, bronchitis, metabolic abnormality, iatrogenic, among others. Patient placed on continuous cardiac monitoring and continuous pulse ox with initial blood pressure 111/68, heart rate 89, saturation 94% on 3 L nasal cannula. Patient was given p.o. challenge for symptomatic management and correction of underlying abnormalities. Workup independently interpreted and significant for nonactionable CBC or chemistry. VBG nonactionable. On independent interpretation of imaging, patient has significantly improved aeration of bilateral lungs as compared to May 26. See radiology read for full review of final results. On reevaluation, patient still resting comfortably. No acute complaints. Given patient presentation, workup, history, this most likely represents iatrogenic altered mental status with opiate and gabapentin induced lethargy. Because patient at baseline without signs or symptoms of clinical decompensation, deemed appropriate for discharge. Results were relayed to patient who voiced understanding and were agreeable to outpatient management and follow up. I discussed my clinical impression with patient and answered all questions. At this time, the evidence for any other entities in the differential is insufficient to warrant any further testing or ED observation. This was explained as well. Advisory was given that persistent or worsening symptoms require further evaluation. I confirmed the understanding of this discussion. Shaper Operator disclaimer Much of this encounter note is an electronic medical transcription supervisor spoken language to printed text. Electronic medical transcription supervisor of the spoken language may permit errors. Although I have reviewed the note, some errors may still exist. Critical Care Critical Care Time Critical Care Time: No
[2024-06-05 21:48] LABS: Basophils % 0.1 % (0.1-2.0); Hematocrit 36.2 % (42.0-52.0); Hemoglobin 12.2 g/dL (14.1-18.0); Lymphocytes # 0.3 K/mm3 (0.7-4.5); Lymphocytes % 2.7 % (10-50); Mean Corpuscular HGB Conc 33.7 g/dL (31.8-35.4); Mean Corpuscular Hemoglobin 31.7 pg (27.0-31.2); Mean Platelet Volume 10.2 fl (7.4-10.4); Monocytes # 0.3 K/mm3 (0.1-1.0); Monocytes % 3.4 % (1.7-9.3); Neutrophils # 8.6 K/mm3 (1.8-7.8); Neutrophils % 93.4 % (37.0-80.0); Platelet Count 212 K/mm3 (142-424); Red Blood Count 3.85 M/mm3 (4.60-6.20); Red Cell Distribution Width 15.3 % (11.5-17.5); White Blood Count 9.2 K/mm3 (4.8-10.8)
[2024-06-05 21:50] LABS: MANUAL DIFFERENTIAL MANUAL DIFFERENTIAL (MANUAL DIFF)
[2024-06-05 21:51] LABS: Lactate Venous 1.3 mmol/L (0.4-2.0); VBG Base Excess 3.9 mmol/L (-2.4-2.3); VBG HCO3 28.4 mmol/L (23-30); VBG Oxygen Saturation 77.5 % (50-70); VBG PCO2 45.2 mmol/L (35-51); VBG PH 7.42 mmol/L (7.31-7.41); VBG Total CO2 29.8 mmol/L (23-27)
[2024-06-05 22:05] LABS: Chloride 100 mmol/L (98-107)
[2024-06-05 22:06] LABS: Albumin Level 3.4 g/dl (3.5-5.0); Potassium 4.4 mmoL/L (3.5-5.1); Sodium 135 mmol/L (136-145)
[2024-06-05 22:08] LABS: Alanine Aminotransferase 27 U/L (12-78); Albumin/Globulin Ratio 1.1 (1.1-1.8); Alkaline Phosphatase 90 U/L (38-126); Anion Gap 9.4 mEq/L (5-15); Aspartate Amino Transferase 20 U/L (17-59); Bilirubin,Total 1.2 mg/dl (0.2-1.3); Blood Urea Nitrogen 32 mg/dl (9-20); Carbon Dioxide 30 mmol/L (22.0-30.0); Creatinine Clearance Estimated 39 mL/min (50-200); Estimated Glomerular Filt Rate 133 ml/min (>60); GFR (African American) 161 ML/MIN (>60); Total Protein,Serum 6.4 g/dl (6.3-8.2)
[2024-06-05 22:09] LABS: Calcium 8.8 mg/dl (8.4-10.2); Glucose 107 mg/dl (74-100)
--- NOTE | 2024-06-05 22:44 | PC.NURSE ---
Report [place] back [place] [facility] [place] ([place] IV removed. Catheter tip intact. VSS. Bleeding controlled.
--- NOTE | 2024-06-05 22:45 | PC.NURSE ---
rounding done. Patient resting
[2024-06-05 22:58] LABS: Lymphocytes % 7 % (10-50); Neutrophils % 93 % (42-76); Platelet Estimate Normal; RBC Morphology Normal; Total Cells Counted 100
--- NOTE | 2024-06-05 23:01 | PC.NURSE ---
rounding done. Patient resting. no needs at this time.
--- NOTE | 2024-06-05 23:35 | PC.NURSE ---
patient waiting on transport
== END 2024-06-06 00:14 | disposition home or self-care (01) ==
PROVIDERS: Emergency Provider Emergency Medicine; PCP Psychiatry & Neurology Sleep Medicine
DX: R41.82 Altered mental status, unspecified (principal); R53.83 Other fatigue; Z87.891 Personal history of nicotine dependence
CPT/HCPCS: 71045; 80053; 82803; 85007; 85025; 85027; 99283

== ENCOUNTER 2024-06-09 08:07 | Inpatient (IN) | payer MEDICARE, SELFPAY ==
[2024-06-09] VITALS (35 sets, daily range): BP systolic 49–152; BP diastolic 31–82; PULSE 0–185; RESP 0–27; TEMP 36.1–37.3; O2SAT 89–99; BMI 18.6; BMI 12.9
--- NOTE | 2024-06-09 08:13 | ECG_ITS ---
APPROVED REPORT Exam: Resting ECG HR:133 bpm ECG Measurements Heart Rate 133 AXES WV 114 P 76 QRSd 78 QRS 68 QT 279 T 65 QTc 357 Conclusion SINUS TACHYCARDIA WITH SHORT WV INTERVAL ABNORMAL RHYTHM ECG UNCONFIRMED REPORT Electronically signed by : Lasha Isaac MD 06/10/2024 08:46:45
--- NOTE | 2024-06-09 08:37 | XR_ITS ---
PROCEDURE INFORMATION: Exam: XR Chest Exam date and time: 06/09/2024 9:37 AM Age: 68 years old Clinical indication: Dyspnea TECHNIQUE: Imaging protocol: Radiologic exam of the chest. Views: 1 view. COMPARISON: CR XR CHEST PORTABLE 06/05/2024 9:30 PM FINDINGS: Lungs: Since the previous examination bilateral pulmonary infiltrates have developed on top of underlying interstitial lung changes. Infiltrative heaviest peripherally in the left mid lung and also in the right lower lobe. Pleural spaces: Blunting of the right costophrenic angle is persistent. The left costophrenic angle demonstrates no effusion. There is no pneumothorax. Heart/Mediastinum: Unremarkable. No cardiomegaly. Bones/joints: Unremarkable. IMPRESSION: Development of bilateral infiltrates consistent with bilateral pneumonia.
--- NOTE | 2024-06-09 08:46 | HMH.EDGENADL ---
Discharge Plan Disposition Patient Disposition: Admitted Prescriptions Prescriptions: No Action dexamethasone 4 mg Tablet 4 mg PO BID Qty: 40 1RF ipratropium-albuterol 0.5 mg-3 mg(2.5 mg base)/3 mL Solution For Nebulization 3 ml inhalation Q6HP PRN (Reason: Shortness Of Breath) Qty: 180 3RF Trelegy Ellipta 100-62.5-25 mcg Blister With Device 1 inh inhalation DAILY Qty: 60 3RF gabapentin 600 mg Tablet 600 mg PO QID diazepam 10 mg Tablet 10 mg PO TIDP PRN (Reason: Anxiety) sulindac 200 mg Tablet 200 mg PO BID oxycodone 5 mg Tablet 5 mg PO Q6HP PRN (Reason: Severe Pain (Scale Score 7-10)) levocetirizine 5 mg Tablet 5 mg PO DAILY megestrol 400 mg/10 mL (40 mg/mL) Suspension 400 mg PO DAILY Qty: 250 5RF Referrals Follow up/Referrals: Clyde Lanza MD [Primary Care Provider] - See instructions Clinical Impressions Clinical Impression: Acute hypoxic respiratory failure, Sepsis, Multifocal pneumonia, Acute exacerbation of chronic obstructive pulmonary disease Print Language Print Language: Chinese Discharge ED Provider: Alexi Arauz General Adult HPI General Chief complaint: Shortness of Breath/Dyspnea Stated complaint: soa Time Seen by Provider: 06/09/24 08:31 Mode of Arrival: EMS Source of Information: Patient Limitations: No Limitations Description of Symptoms (Recalled from ER Triage Doc. by RN): pt presents [facility] ED from [facility]. pt does have lung cx. [facility] reports that pt was 79% on his baseline 3L NC. EMS reports that pt did have long tubing connected to his oxygen. pt unable to give much information about history. History of Present Illness HPI narrative: Patient is a 68-year-old from a [facility] who is known to have history of lung cancer is on 3 L nasal cannula at baseline and was brought in by EMS for altered mental status and hypoxemia. Had oxygen saturation of 79% on his baseline. He is altered and in distress and further history is unable to be obtained from him. We were able to find out definitively that the patient is DNR/DNI. However he is not comfort care to our knowledge. Further history is unable to be obtained as stated. Related Data Home Medications ?Medication ?Instructions ?Recorded ?Confirmed diazepam 10 mg tablet 10 mg PO TIDP PRN Anxiety 09/25/23 06/09/24 gabapentin 600 mg tablet 600 mg PO QID 09/25/23 06/09/24 levocetirizine 5 mg tablet 5 mg PO DAILY 09/25/23 06/09/24 oxycodone 5 mg tablet 5 mg PO Q6HP PRN Severe Pain 09/25/23 06/09/24 (Scale Score 7-10) sulindac 200 mg tablet 200 mg PO BID 09/25/23 06/09/24 Previous Rx's ?Medication ?Instructions ?Recorded megestrol 400 mg/10 mL (40 mg/mL) 400 mg (10 mL) PO DAILY #250 mL 09/28/23 oral suspension dexamethasone 4 mg tablet 4 mg PO BID #40 tabs 05/22/24 fluticasone fur. 100 mcg-umeclid 1 inh inhalation DAILY #60 ea 05/31/24 62.5 mcg-vilant 25 mcg inhalat.powder (Trelegy Ellipta) ipratropium 0.5 mg-albuterol 3 mg 3 ml inhalation Q6HP PRN Shortness 05/31/24 (2.5 mg base)/3 mL nebulization Of Breath #180 mL soln Allergies Allergy/AdvReac Type Severity Reaction Status Date / Time Iodinated Contrast Media Allergy Intermediate Hives Verified 06/09/24 09:07 [facility] Disclaimer: The information contained in this section may have been updated after the patient was seen, as this information can be updated by other users. Medical History Fracture of greater trochanter of right femur Acute esophageal obstruction Food impaction of esophagus Acute left-sided weakness Left sided numbness Malignant pleural effusion Pneumothorax Chest tube in place Primary lung cancer Pleural effusion on right Parotid nodule Pneumonia Dysphagia Dyspnea on exertion Lung cancer Tobacco abuse disorder COPD mixed type Mediastinal lymphadenopathy Hilar lymphadenopathy Multiple lung nodules on CT Smoking greater than 30 pack years Esophageal obstruction due to food impaction Surgical History History of colonoscopy History of eye surgery History of back surgery Family History Other Leukemia Lung cancer Social History (Reviewed 06/06/24 @ 13:51 by IAN Jarrett Smoking Status: Former smoker how long ago did patient quit smokin weeks second hand exposure: Yes alcohol intake: never substance use type: denies use current occupational status: retired Travel in the last 8 weeks: None household members: spouse housing: house lives independently: No marital status: education level: high school service: No current occupational exposures/hazards: No caffeine: Yes firearms in home: No do you feel safe at home: Yes victim of physical abuse: No victim of emotional abuse: No victim of sexual abuse: No would you like helpful sources: No Have you lived/traveled outside [place] in past 30 days?: No Contact w/someone who lives/traveled outside US past 30 days?: No Exposure to someone with infectious disease in past 14 days?: No Do you have a fever (greater than 100.4 F or 38 C)?: No Have you tested positive for COVID-19: No Exposed to someone with COVID-19 in past 14 days?: No Do you have a sore throat?: No Do you have a cough?: No Do you have any weakness?: No Do you have any diarrhea?: No Are you experiencing any unusual bleeding?: No Do you have any muscle aches/pain?: No Do you have any abdominal pain?: No Are you experiencing loss of taste or smell?: No Other Medical History Have you received the Flu Vaccine for this season: No Have you received the Pneumonia Vaccine: No ROS Obtained: Yes All systems reviewed & no additional complaints except as documented Physical Exam General General appearance: in distress and cachectic Respiratory Respiratory exam: Present other (Patient is tachypneic breathing rapidly and shallowly has diffuse coarse breath sounds) Cardiovascular Cardiovascular exam: Present tachycardia (Heart rate regular and 1 30-1 50) Neurological Exam Neurological exam: Present alert and other (GCS of 13); Absent oriented X3 Medical Decision Making Medical Records Screening: Per USPSTF and CDC recommendations, given the prevalence of disease in our region, it is our hospital?s policy to screen for HIV and viral Hepatitis for all patients aged 18 and over and those with ongoing risk factors. Homero Inquiry Pt receiving controlled substance: No Vital Signs: 06/09/24 08:15 06/09/24 08:30 06/09/24 08:34 Temperature 97.7 F Temperature Source Axillary Pulse Rate 133 H 132 H Pulse Rate [Left Radial] 136 H Respiratory Rate 27 H 22 22 Blood Pressure 105/56 L 121/66 Blood Pressure [Right Arm] 121/66 Blood Pressure Mean [Right Arm] 84 02 Sat by Pulse Oximetry 94 L 95 96 Oxygen Delivery Method Non-Rebreather Non-Rebreather Nasal Cannula Oxygen Flow Rate (LPM) 3 06/09/24 09:00 Temperature 99.1 F Temperature Source Rectal Pulse Rate 148 H Pulse Rate [Left Radial] Respiratory Rate 21 Blood Pressure 117/63 Blood Pressure [Right Arm] Blood Pressure Mean [Right Arm] 02 Sat by Pulse Oximetry 96 Oxygen Delivery Method Non-Rebreather Oxygen Flow Rate (LPM) Lab Data Lab results reviewed: Yes I reviewed the patient's lab results. Lab Results 06/09/24 08:37: VBG pH 7.17 L, VBG pCO2 82.4 H, VBG pO2 37.1, VBG HCO3 29.4, VBG Total CO2 31.9 H, VBG O2 Saturation 56.6, VBG Base Excess 0.9, VBG Lactic Acid 3.9 H 06/09/24 08:50: WBC 15.0 H, RBC 3.91 L, Hgb 12.5 L, Hct 38.5 L, MCV 98.5 H, MCH 32.0 H, MCHC 32.5, RDW 15.9, Plt Count 208, MPV 11.1 H, Neut % (Auto) 95.5 H, Lymph % (Auto) 1.5 L, [place] % (Auto) 2.6, Eos % (Auto) 0.0 L, Baso % (Auto) 0.1, Neut # (Auto) 14.3 H, Lymph # (Auto) 0.2 L, [place] # (Auto) 0.4, Eos # (Auto) 0.0, Baso # (Auto) 0.0, Sodium 136, Potassium 4.6, Chloride 97 L, Carbon Dioxide 32 H, Anion Gap 11.6, BUN 36 H, Creatinine 1.00, Estimated Creat Clear 51, Estimated GFR 74, Est GFR ( Amer) 89, Glucose 151 H, Calcium 9.0, Total Bilirubin 1.9 H, AST 24, ALT 29, Alkaline Phosphatase 111, Troponin I < 0.01, NT-Pro-B Natriuret Pep 2320 H, Total Protein 5.9 L, Albumin 2.9 L, Globulin 3.0, Albumin/Globulin Ratio 1.0 L 06/09/24 08:56: Urine Color Yellow, Urine Appearance Clear, Urine pH 6.0, Ur Specific [place] 1.025, Urine Protein 1+ A, Urine Glucose (UA) Negative, Urine Ketones Negative, Urine Blood Negative, Urine Nitrate Negative, Urine Bilirubin 1+ A, Urine Urobilinogen 4.0, Ur Leukocyte Esterase Negative 06/09/24 09:00: SARS-CoV-2 (PCR) Not detected, Influenza A Untype (PCR) Not detected, Influenza Type B (PCR) Not detected 06/09/24 08:50 06/09/24 08:50 Orders (Tests/Meds): ED MEDICATIONS Generic Name Dose Route Start Last Admin Trade Name Freq PRN Reason Stop Dose Admin Magnesium Sulfate 2 gm in 50 mls @ 50 mls/hr 06/09/24 09:23 06/09/24 09:56 Magnesium Sulfate 2gm/50ml Premix IV 06/09/24 10:22 50 mls/hr ONCE ONE Administration Lactated Ringer's 1,910 mls @ 955 mls/hr 06/09/24 09:25 06/09/24 09:57 Lactated Ringer's 1000 Ml Bag 30 ml/kg infuse over 2 hr (1910 ml) 06/09/24 11:24 955 mls/hr IV Administration .Q2H ONE Vancomycin/PEG/NADA/Lysine/Water 1.25 gm in 250 mls @ 125 mls/hr 06/09/24 09:30 Vancomycin 1.25gm/250ml (Peg) Premix IV 06/09/24 11:29 ONCE ONE Discontinued Medications Generic Name Dose Route Start Last Admin Trade Name Freq PRN Reason Stop Dose Admin Albuterol/Ipratropium 3 ml 06/09/24 09:23 06/09/24 09:57 Ipratropium/Albuterol 3 Ml Neb IH 06/09/24 09:24 3 ml ONCE ONE Administration Lactated Ringer's 1,000 mls @ 999 mls/hr 06/09/24 08:45 06/09/24 09:33 Lactated Ringer's 1000 Ml Bag IV 06/09/24 09:45 Not Given .Q1H1M [facility] Piperacillin Sod/Tazobactam 50 mls @ 100 mls/hr 06/09/24 09:24 Sod 3.375 gm/ Sodium Chloride IV 06/09/24 09:53 ONCE ONE Azithromycin 500 mg/ Sodium 250 mls @ 250 mls/hr 06/09/24 09:23 Chloride IV 06/09/24 09:24 ONCE ONE Methylprednisolone Sodium Succinate 125 mg 06/09/24 09:23 06/09/24 09:57 Methylprednisolone Sod Succ 125mg Vial IV 06/09/24 09:24 125 mg ONCE ONE Administration Miscellaneous 1 each 06/09/24 09:30 Vancomycin Consult Request NOTAPPLIC 07/09/24 09:29 CONSULT PHARMACY [facility] ORDERS Category Date Time Status CXR --portable [XR chest portable] Stat Exams 06/09/24 08:37 Taken BNP [NT Pro Brain Natriuretic Pep.] Stat Lab 06/09/24 08:50 Completed CBC w/Auto Diff [Complete Blood Count Auto Diff] Stat Lab 06/09/24 08:50 Results CMP [Comprehensive Metabolic Panel] Stat Lab 06/09/24 08:50 Completed HIV Combo Stat Lab 06/09/24 08:50 Received Hepatitis C Ab Qual. W/ RFX Stat Lab 06/09/24 08:50 Received Rapid PCR Covid and Flu A/B Stat Lab 06/09/24 09:00 Completed Trop I [Troponin I] Stat Lab 06/09/24 08:50 Completed Troponin I Q3H Lab 06/09/24 11:45 Ordered Troponin I Q3H Lab 06/09/24 14:45 Ordered UA [Urinalysis and Microscopic] Stat Lab 06/09/24 08:56 Results Blood Culture Stat Micro 06/09/24 09:29 Received Venous Blood Gas Stat RT 06/09/24 08:37 Completed Tissue Perfus/Sepsis Re-Eval Sepsis Re-Evaluation Performed: Yes Date Performed: 06/09/24 Time Performed: 10:05 Medical Decision Narrative: 68-year-old who appears in distress cachectic and chronically ill. He is minimally interactive with me right now tachypneic breathing rapidly and tachycardic. I suspect he is septic. We attempted to get a hold of his as he appears to be at the end of his life but were unable to. For this reason we will have full medical support right now we know that he is DNR/DNI but do not know further if they would like comfort care alone. Therefore we will work him up for presumed sepsis. Will reassess shortly. Patient's is at the bedside and she wants patient full support but she is in agreement that the patient is DNR and DNI. He is critically ill she is aware that he has very poor prognosis today. Chest x-ray performed which I personally interpreted which shows multifocal pneumonia. Broad-spectrum antibiotics have been initiated. Patient also treated for COPD with steroids magnesium nebs. Patient subsequently developed A-fib RVR will not directly intervene on that but will treat underlying cause which is sepsis. Patient was initiated on BiPAP for acute hypercarbic and hypoxic respiratory failure. Patient will need to be admitted for critical care management. Prognosis is very poor family is aware of this. I spoke with Dr. Caal who is on-call for Dr. Lanza and admit the patient for further management. Critical Care Critical Care Time Critical Care Time: Yes Attestation: On 06/09/24, the high probability of a clinically significant, sudden or life threatening deterioration of the following system(s) required my full and direct attention, intervention and personal management. The time I documented below is in addition to time spent performing reported procedures but includes the following listed in this critical care notation. Total Time Total Critical Care Time: 35
[2024-06-09 09:02] LABS: Appearance,Urine CLEAR (Clear); Blood, Urine Negative (Negative); Color,Urine YELLOW (Yellow); Glucose,Urine (UA) Negative (Negative); Ketones,Urine Negative (Negative); Leukocyte Esterase,Urine Negative (Negative); Microscopic, Urine URINE MICROSCOPIC (MICROSCOPIC); Nitrate,Urine Negative (Negative); Protein,Urine 1+ (Negative); Specific Gravity, Urine 1.025 (1.005-1.030)
[2024-06-09 09:04] LABS: Bilirubin,Urine 1+ (Negative)
[2024-06-09 09:04] LABS: Coronavirus 19, PCR Not Detected (NotDetected); Influenza A, PCR Not Detected (NotDetected); Influenza B, PCR Not Detected (NotDetected)
[2024-06-09 09:09] LABS: VBG Base Excess 0.9 mmol/L (-2.4-2.3); VBG HCO3 29.4 mmol/L (23-30); VBG Oxygen Saturation 56.6 % (50-70); VBG PCO2 82.4 mmol/L (35-51); VBG PO2 37.1 mmol/L (28-40); VBG Total CO2 31.9 mmol/L (23-27)
[2024-06-09 09:10] LABS: Albumin Level 2.9 g/dl (3.5-5.0); Chloride 97 mmol/L (98-107); Sodium 136 mmol/L (136-145)
[2024-06-09 09:11] LABS: Potassium 4.6 mmoL/L (3.5-5.1)
[2024-06-09 09:13] LABS: Alanine Aminotransferase 29 U/L (12-78); Alkaline Phosphatase 111 U/L (38-126); Anion Gap 11.6 mEq/L (5-15); Aspartate Amino Transferase 24 U/L (17-59); Bilirubin,Total 1.9 mg/dl (0.2-1.3); Blood Urea Nitrogen 36 mg/dl (9-20); Carbon Dioxide 32 mmol/L (22.0-30.0); Creatinine Clearance Estimated 51 mL/min (50-200); Estimated Glomerular Filt Rate 74 ml/min (>60); GFR (African American) 89 ML/MIN (>60); Glucose 151 mg/dl (74-100); Total Protein,Serum 5.9 g/dl (6.3-8.2)
[2024-06-09 09:13] LABS: Lactate Venous 3.9 mmol/L (0.4-2.0); VBG PH 7.17 mmol/L (7.31-7.41)
--- NOTE | 2024-06-09 09:14 | PC.NURSE ---
aware of VBG results
[2024-06-09 09:18] LABS: Basophils % 0.1 % (0.1-2.0); Hematocrit 38.5 % (42.0-52.0); Hemoglobin 12.5 g/dL (14.1-18.0); Lymphocytes # 0.2 K/mm3 (0.7-4.5); Lymphocytes % 1.5 % (10-50); Mean Corpuscular HGB Conc 32.5 g/dL (31.8-35.4); Mean Corpuscular Volume 98.5 fl (80-94); Mean Platelet Volume 11.1 fl (7.4-10.4); Monocytes # 0.4 K/mm3 (0.1-1.0); Monocytes % 2.6 % (1.7-9.3); Neutrophils # 14.3 K/mm3 (1.8-7.8); Neutrophils % 95.5 % (37.0-80.0); Platelet Count 208 K/mm3 (142-424); Red Blood Count 3.91 M/mm3 (4.60-6.20); Red Cell Distribution Width 15.9 % (11.5-17.5)
[2024-06-09 09:22] LABS: MANUAL DIFFERENTIAL MANUAL DIFFERENTIAL (MANUAL DIFF)
[2024-06-09 09:23] LABS: NT Pro Brain Natriuretic Pep. 2320 pg/mL (0-125)
--- NOTE | 2024-06-09 09:23 | PC.NURSE ---
resp called to place pt on bipap
[2024-06-09 09:31] LABS: Troponin I < 0.01 ng/ml (0.00-0.034)
[2024-06-09] MEDS: MAGNESIUM SULFATE IN WATER 2 GM/50 ML PIGGYBACK IV (09:56)
[2024-06-09] MEDS: IPRATROPIUM/ALBUTEROL 3 ML NEB IH ×2 (09:57→14:43)
[2024-06-09] MEDS: METHYLPREDNISOLONE SOD SUCC 125MG VIAL 125 MG IV (09:57)
[2024-06-09] MEDS: LACTATED RINGERS 1000ML 1,910 ML 955 ML IV (09:57)
--- NOTE | 2024-06-09 10:01 | ECG_ITS ---
APPROVED REPORT Exam: Resting ECG HR:171 bpm ECG Measurements Heart Rate 171 AXES QRSd 88 QRS 79 QT 258 T 60 QTc 351 Conclusion ATRIAL FIBRILLATION WITH RAPID VENTRICULAR RESPONSE NONSPECIFIC ST & T-WAVE ABNORMALITY CRITICAL TEST RESULT UNCONFIRMED REPORT Electronically signed by : Lasha Isaac MD 06/10/2024 08:46:38
--- NOTE | 2024-06-09 10:01 | PC.NURSE ---
on phone with dr anegles for dr gonzalez
[2024-06-09 10:05] LABS: Bacteria,Urine Trace /lpf; Mucus,Urine 1+ /lpf; Squamous Epithelial Cell,Urine Occasional #/hpf (0-5)
--- NOTE | 2024-06-09 10:18 | PC.NURSE ---
[facility] aware of admission
[2024-06-09] MEDS: AZITHROMYCIN 500 MG in 0.9 % SODIUM CHLORIDE 250 ML 250 MG IV (10:26)
[2024-06-09 10:35] LABS: HIV Combo NEGATIVE (Negative)
[2024-06-09 10:43] LABS: Hepatitis C Ab Qual. W/ RFX NEGATIVE (Negative)
--- NOTE | 2024-06-09 11:10 | PC.NURSE ---
report called to sonali from [facility]
[2024-06-09 11:29] LABS: Lymphocytes % 3 % (10-50); Monocytes % 2 % (2-9); Neutrophils % 95 % (42-76); Platelet Estimate Normal; RBC Morphology Normal; Total Cells Counted 100
[2024-06-09] MEDS: dilTIAZem 25MG/5ML VIAL 10 MG IV (12:24)
--- NOTE | 2024-06-09 12:32 | PC.NURSE ---
Verified with pt's , Cathleen-no compressions, no intubation, and no mechanical ventilation. If pt is in a shockable rhythm, pt's is fine with defibrillation.
[2024-06-09] MEDS: VANCOMYCIN/WATER FOR INJ (PEG) 1.25 GM/250 ML PIGGYBACK IV (12:41)
[2024-06-09 13:02] LABS: Troponin I < 0.01 ng/ml (0.00-0.034)
--- NOTE | 2024-06-09 13:08 | CT_ITS ---
PROCEDURE INFORMATION: Exam: CT Head Without Contrast Exam date and time: 06/09/2024 2:06 PM Age: 68 years old Clinical indication: Altered mental status/memory loss; Additional info: Altered consciousness, rhythm disturbance. TECHNIQUE: Imaging protocol: Computed tomography of the head without contrast. Radiation optimization: All CT scans at this facility use at least one of these dose optimization techniques: automated exposure control; mA and/or kV adjustment per patient size (includes targeted exams where dose is matched to clinical indication); or iterative reconstruction. COMPARISON: CT ANGIO HEAD 10/21/2023 6:30 PM FINDINGS: Brain: Moderate to severe central and cortical atrophy and small-vessel ischemic changes are stable. No intracranial hemorrhage. No midline shift. Cerebral ventricles: No ventriculomegaly. Paranasal sinuses: Slightly worse left sphenoid sinus disease. Mastoid air cells: Visualized mastoid air cells are well aerated. Bones: Unremarkable. No acute fracture. Soft tissues: Unremarkable. IMPRESSION: No acute intracranial abnormality.
[2024-06-09] MEDS: METOPROLOL TARTRATE 5MG/5ML VIAL 2.5 MG IV (13:09)
--- NOTE | 2024-06-09 13:10 | EXP.HP ---
History of Present Illness *Admission Date: 06/09/24 *Reason for visit:: Hypoxia *History of present illness: This 68-year-old white male was [place] [facility] [place] developing [place]. He was seen in the emergency room at [facility] and admitted. He was recently hospitalized for pleural effusion related to his known lung carcinoma on the right. During that hospitalization he acquired a pneumothorax after thoracentesis for the pleural effusion. Subsequently he fell and suffered a intertrochanteric fracture of the right femur which required pinning . After he was treated and stabilized he was transferred to [facility] [place]. He has been under the care of , plastics plater as well as his primary care doctor Dr. Lanza. He has suffered chronic low back pain. He has a deep sacral decubitus ulcer. He has protein calorie malnutrition. 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 In the emergency room he was treated for his hypoxia. He is currently on BiPAP. He is also developed atrial fibrillation with rapid ventricular response. He has received diltiazem for that. He is listed as DNR/DNI. [facility] Disclaimer: The information contained in this section may have been updated after the patient was seen, as this information can be updated by other users. Medical History Fracture of greater trochanter of right femur Acute esophageal obstruction Food impaction of esophagus Acute left-sided weakness Left sided numbness Malignant pleural effusion Pneumothorax Chest tube in place Primary lung cancer Pleural effusion on right Parotid nodule Pneumonia Dysphagia Dyspnea on exertion Lung cancer Tobacco abuse disorder COPD mixed type Mediastinal lymphadenopathy Hilar lymphadenopathy Multiple lung nodules on CT Smoking greater than 30 pack years Esophageal obstruction due to food impaction Surgical History (Updated 06/09/24 @ 12:47 by Minnie Mccormack RN) History of right hip hemiarthroplasty History of colonoscopy History of eye surgery History of back surgery Family History Other Leukemia Lung cancer Social History Smoking Status: Former smoker how long ago did patient quit smokin weeks second hand exposure: Yes alcohol intake: never substance use type: denies use current occupational status: retired Travel in the last 8 weeks: None household members: spouse housing: house lives independently: No marital status: education level: high school service: No current occupational exposures/hazards: No caffeine: Yes firearms in home: No do you feel safe at home: Yes victim of physical abuse: No victim of emotional abuse: No victim of sexual abuse: No would you like helpful sources: No Have you lived/traveled outside [place] in past 30 days?: No Contact w/someone who lives/traveled outside US past 30 days?: No Exposure to someone with infectious disease in past 14 days?: No Do you have a fever (greater than 100.4 F or 38 C)?: No Have you tested positive for COVID-19: No Exposed to someone with COVID-19 in past 14 days?: No Do you have a sore throat?: No Do you have a cough?: No Do you have any weakness?: No Do you have any diarrhea?: No Are you experiencing any unusual bleeding?: No Do you have any muscle aches/pain?: No Do you have any abdominal pain?: No Are you experiencing loss of taste or smell?: No Other Medical History Have you received the Flu Vaccine for this season: No Have you received the Pneumonia Vaccine: No Review of Systems Review of Systems Review of systems:: unable to obtain Constitutional Constitutional: Reports as per HPI Eyes Eyes: Reports as per HPI *Cardiovascular Cardiovascular: Reports as per HPI *Respiratory Respiratory: Reports as per HPI *Musculoskeletal Musculoskeletal: Reports as per HPI Integumentary/Breasts Skin/Breast: Reports skin ulcer (Deep sacral decubitus.) *Neurologic Neurologic: Denies convulsions and Reports other (He is minimally responsive at this point. Some response to sternal rub) Psychiatric Psychiatric: Reports other (N/A) Endocrine Endocrine: Reports change in body appearance Hematologic/Lymphatic Hematologic/Lymphatic: Reports as per HPI Allergic/Immunologic Allergic/Immunologic: Reports as per HPI Meds Home Medications and Allergies Home Medications ?Medication ?Instructions ?Recorded ?Confirmed ?Type diazepam 10 mg tablet 10 mg PO TIDP PRN Anxiety 09/25/23 06/09/24 History gabapentin 600 mg tablet 600 mg PO QID 09/25/23 06/09/24 History levocetirizine 5 mg tablet 5 mg PO DAILY 09/25/23 06/09/24 History oxycodone 5 mg tablet 5 mg PO Q6HP PRN Severe Pain 09/25/23 06/09/24 History (Scale Score 7-10) sulindac 200 mg tablet 200 mg PO BID 09/25/23 06/09/24 History megestrol 400 mg/10 mL (40 mg/mL) 400 mg (10 mL) PO DAILY #250 mL 09/28/23 06/09/24 Rx oral suspension dexamethasone 4 mg tablet 4 mg PO BID #40 tabs 05/22/24 06/09/24 Rx fluticasone fur. 100 mcg-umeclid 1 inh inhalation DAILY #60 ea 05/31/24 06/09/24 Rx 62.5 mcg-vilant 25 mcg inhalat.powder (Trelegy Ellipta) ipratropium 0.5 mg-albuterol 3 mg 3 ml inhalation Q6HP PRN Shortness 05/31/24 06/09/24 Rx (2.5 mg base)/3 mL nebulization Of Breath #180 mL soln amino acid-protein hyd 16 gram-100 30 ml PO BID 06/09/24 06/09/24 History kcal/30 mL oral liq meter-dose pump (Liquacel) guaifenesin 600 mg tablet, 600 mg PO BID 06/09/24 06/09/24 History extended release 12 hr New Prescriptions to Start Prescriptions: Allergies Allergy/AdvReac Type Severity Reaction Status Date / Time Iodinated Contrast Media Allergy Intermediate Hives Verified 06/09/24 12:48 Exam Data for Last 24 hours Vital signs and Labs for Last 24 Hours: Temp Pulse Resp BP Pulse Ox O2 Del Method O2 Flow Rate 96.9 F L 176 H 20 121/47 L 94 L BiPAP 3 06/09/24 12:08 06/09/24 12:15 06/09/24 12:08 06/09/24 12:08 06/09/24 12:08 06/09/24 12:08 06/09/24 08:34 FiO2 80 06/09/24 09:30 Laboratory Results - last 24 hr 06/09/24 08:37: VBG pH 7.17 L, VBG pCO2 82.4 H, VBG pO2 37.1, VBG HCO3 29.4, VBG Total CO2 31.9 H, VBG O2 Saturation 56.6, VBG Base Excess 0.9, VBG Lactic Acid 3.9 H 06/09/24 08:50: WBC 15.0 H, RBC 3.91 L, Hgb 12.5 L, Hct 38.5 L, MCV 98.5 H, MCH 32.0 H, MCHC 32.5, RDW 15.9, Plt Count 208, MPV 11.1 H, Neut % (Auto) 95.5 H, Lymph % (Auto) 1.5 L, [place] % (Auto) 2.6, Eos % (Auto) 0.0 L, Baso % (Auto) 0.1, Neut # (Auto) 14.3 H, Lymph # (Auto) 0.2 L, [place] # (Auto) 0.4, Eos # (Auto) 0.0, Baso # (Auto) 0.0, Total Counted 100, Neutrophils % (Manual) 95 H, Lymphocytes % (Manual) 3 L, Monocytes % (Manual) 2, Platelet Estimate Normal, RBC Morphology Normal, Sodium 136, Potassium 4.6, Chloride 97 L, Carbon Dioxide 32 H, Anion Gap 11.6, BUN 36 H, Creatinine 1.00, Estimated Creat Clear 51, Estimated GFR 74, Est GFR ( Amer) 89, Glucose 151 H, Calcium 9.0, Total Bilirubin 1.9 H, AST 24, ALT 29, Alkaline Phosphatase 111, Troponin I < 0.01, NT-Pro-B Natriuret Pep 2320 H, Total Protein 5.9 L, Albumin 2.9 L, Globulin 3.0, Albumin/Globulin Ratio 1.0 L, HCV Ab TIERNEY w/Rflx PCR Qn Negative, HIV Ag/Ab Combo Qual Negative 06/09/24 08:56: Urine Color Yellow, Urine Appearance Clear, Urine pH 6.0, Ur Specific [place] 1.025, Urine Protein 1+ A, Urine Glucose (UA) Negative, Urine Ketones Negative, Urine Blood Negative, Urine Nitrate Negative, Urine Bilirubin 1+ A, Urine Urobilinogen 4.0, Ur Leukocyte Esterase Negative, Urine RBC None, Urine WBC 3-5, Ur Squamous Epith Cells Occasional, Urine Bacteria Trace, Hyaline Casts 3-5, Urine Mucus 1+ 06/09/24 09:00: SARS-CoV-2 (PCR) Not detected, Influenza A Untype (PCR) Not detected, Influenza Type B (PCR) Not detected 06/09/24 11:45: Troponin I < 0.01 I & O for Last 24 hours: Intake & Output 06/07/24 06/08/24 06/09/24 06/10/24 11:59 11:59 11:59 11:59 Weight 115 lb 95 lb 6 oz Constitutional Constitutional: cachectic, chronically ill appearing and obtunded (On BiPAP. Responds to sternal rub and some response to vocalization.) *Routine HEENT Exam Head: Present normocephalic Eye: Present other (Opacification of the right cornea due to glaucoma. Left pupil 3 mm) ENT: Present mucous membranes moist *Routine Neck Exam Neck: Present full ROM; Absent JVD Routine Chest/Breast/Axilla Exam Chest wall: Absent chest tube Axillae: Absent mass *Routine Respiratory Exam Respiratory: Present decreased breath sounds (He is on BiPAP.) *Routine Cardiovascular Exam Cardiovascular: Present tachycardia (Atrial fibrillation) *Routine Abdominal Exam Abdominal: Present soft (Scaphoid); Absent tenderness or mass *Routine Rectal Exam Rectal:: deferred *Routine Genitalia Exam Genitalia:: deferred *Routine Extremities Exam Extremities: Absent edema (Muscle atrophy) Routine Back/Spine/Pelvis Exam Pelvis: Present sacral tenderness (Deep sacral ulcer.) *Routine Skin Exam Skin: Present intact (Except for the deep sacral ulcer) *Routine Neurological Exam Neurological: Absent alert, oriented X3 or normal reflexes (No DTR reflexes bilaterally) Routine Psychiatric Exam Psychiatric: Absent normal affect Assessment and Plan *Assessment and plan (1) Multifocal pneumonia: Status: Acute Category: Medical Code(s): J18.9 - Pneumonia, unspecified organism (2) Sepsis: Status: Acute Category: Medical Code(s): A41.9 - Sepsis, unspecified organism (3) Acute hypoxic respiratory failure: Status: Acute Category: Medical Code(s): J96.01 - Acute respiratory failure with hypoxia (4) Acute alteration in mental status: Status: Acute Category: Medical Code(s): R41.82 - Altered mental status, unspecified (5) Glaucoma of right eye: Status: Acute Category: Medical Code(s): H40.9 - Unspecified glaucoma (6) Closed intertrochanteric fracture of right femur: Problem Comment: Status post cephalomedullary nailing right proximal femur Status: Acute Qualifiers: Encounter type: subsequent encounter Fracture alignment: nondisplaced Fracture healing: with routine healing Qualified Code(s): S72.144D - Nondisplaced intertrochanteric fracture of right femur, subsequent encounter for closed fracture with routine healing Category: Medical Code(s): S72.141A - Displaced intertrochanteric fracture of right femur, initial encounter for closed fracture (7) Severe protein-calorie malnutrition: Status: Acute Category: Medical Code(s): E43 - Unspecified severe protein-calorie malnutrition (8) Malignant neoplasm of right upper lobe of lung: Status: Acute Category: Medical Code(s): C34.11 - Malignant neoplasm of upper lobe, right bronchus or lung (9) Malignant pleural effusion: Status: Acute Category: Medical Code(s): J91.0 - Malignant pleural effusion (10) Smoking greater than 30 pack years: Status: Chronic Category: Social Hx Code(s): F17.210 - Nicotine dependence, cigarettes, uncomplicated Plan BiPAP. Continue piperacillin/tazobactam. Past culture showed Pseudomonas with sensitivity. Oral medications were ordered but he is not able to take p.o. I have ordered 1 dose of metoprolol 2.5 mg to slow his heart rate. He had 1 dose of diltiazem. Diltiazem drip will be initiated. Due to his change in mental status CT noncontrast of the brain is ordered. He is DNR/DNI and the family is realistic about his status and prognosis.
[2024-06-09 13:11] LABS: Reflex Lactic Add Lactic Reflex
[2024-06-09] MEDS: dilTIAZem HCL 100 MG in 0.9 % SODIUM CHLORIDE 100 ML IV (13:52)
[2024-06-09 15:17] LABS: Lactic Acid Follow Up (RFLX 1) 4.2 mmol/L (0.7-2.1)
[2024-06-09 15:18] LABS: Troponin I < 0.01 ng/ml (0.00-0.034)
--- NOTE | 2024-06-09 15:33 | ECG_ITS ---
APPROVED REPORT Exam: Resting ECG HR:103 bpm ECG Measurements Heart Rate 103 AXES TN 119 P 82 QRSd 77 QRS 72 QT 304 T 90 QTc 364 Conclusion SINUS TACHYCARDIA WITH SHORT TN INTERVAL Atrial abnormality ABNORMAL RHYTHM ECG UNCONFIRMED REPORT Electronically signed by : Lasha Isaac MD 06/10/2024 08:46:33
[2024-06-09] MEDS: PIPERACILLIN/TAZO 4.5 GM in 0.9 % SODIUM CHLORIDE 100 ML IV (15:49)
[2024-06-09 16:49] LABS: Reflex Lactic (2 hrs) Add Lactic Reflex
--- NOTE | 2024-06-09 17:39 | PC.WOUNDNOTE ---
ERYTHEMA NOTED ALONG PT'S SPINE PT IS A Q2H TURN
--- NOTE | 2024-06-09 17:40 | PC.WOUNDNOTE ---
DECUBITUS ULCER NOTED TO COCCYX PRESSURE DRESSING APPLIED TO AREA
--- NOTE | 2024-06-09 18:19 | PC.NURSE ---
Addendum entered by Minnie Mccormack RN 06/09/24 18:30: Rt hip dressing from prior rt hip fx remains CDI Original Note: Pt remains on bipap and is only responsive to light pain and is unable to follow commands. Pt left pupil is sluggish to react and pinpoint, right pupil remains cloudy and at baseline d/t glaucoma hx. Pt has been a q2h turn. Decubitus ulcer noted to coccyx. Area cleaned and dressed with wet kerlix, dry 4x4, and pink pressure dressing per MD Lanza's order. Heels floated with heel protectors in place. Dilt gtt paused at this time d/t pt rate in the mid 80's and hypotension w/ BP of 96/64. Courtesy cart called for family this shift and they remain at bedside. Oral care initiated this shift as well d/t dry mucosal membranes.
--- NOTE | 2024-06-09 19:51 | PC.NURSE ---
Unable to obtain O2 sat on pt after multiple efforts. Assessed pt, and was unable to palpate a radial pulse. Auscultated heart sounds and was able to hear S1 and S2 sounds. SBP has been in the 80's-low 100's. reports if needed she would like for us to given medication for BP. Dr Isaac called and verbal order received for levophed gtt to keep SBP>90
[2024-06-09] MEDS: NOREPINEPHRINE BITARTRATE/D5W 8 MG/250 ML PLAST..BAG 15 MG IV (20:08)
--- NOTE | 2024-06-09 20:17 | PC.NURSE ---
BP not reading at this time. Auscultated pts heart sounds and can hear very failt heart beat. Verified with Dariela Cabrera RN. Paged Dr Isaac at this time. HR has decreased to 56
--- NOTE | 2024-06-09 20:22 | PC.NURSE ---
Spoke with Dr Isaac at this time. he would not like to add a 2nd pressor.
--- NOTE | 2024-06-09 21:07 | PC.NURSE ---
Addendum entered by Julianna Pryor RN 06/09/24 21:15: no shockable rhythm noted. Family remains at bedside. Original Note: Pt went asystole on tele @2055. ED notified to pronounce TOGregoria , per Dr Isaac. Levophed unhooked from IV. BIPAP removed from pt.
[2024-06-09 21:08] LABS: POC Glucose,Bedside 193 (70-110)
--- NOTE | 2024-06-09 21:13 | EXP.DEATH.NO ---
Pronouncement Note Date and Time of Date of : 06/09/24 Time of : 20:56 PCOD Preliminary cause of : Acute respiratory failure Contributing Factors (1) Multifocal pneumonia: (2) Sepsis: (3) Acute hypoxic respiratory failure: (4) Acute alteration in mental status: (5) Glaucoma of right eye: (6) Closed intertrochanteric fracture of right femur: (7) Severe protein-calorie malnutrition: (8) Malignant neoplasm of right upper lobe of lung: (9) Malignant pleural effusion: (10) Smoking greater than 30 pack years: Additional Data Confirmation of : no pulse Family: at bedside Attending/PCP notified?: Yes Attending physician: Clyde Lanza MD, Dr. Isaac Was code activated?: No Autopsy should be considered if:: Unknown or unanticipated medical complications Cause is not known with certainty on clinical grounds Would allay concerns of the public/family regarding Unexplained/unexpected apparently natural and not subject to a forensic medical jurisdiction DOA Within 24 hours of admission Sustained or apparently sustained injury while in the hospital Result of high risk, infectious and contagious disease Obstetric and pediatric arising from environmental or occupational hazard Unexplained/unexpected from dental, medical, or surgical diagnostic procedures and/or therapies Would disclose a known or suspected illness which also may have a bearing on survivors or recipients of transplanted organs Autopsy requested?: No Does not meet criteria grazing examiner notified?: Yes Organ bank notified?: Yes Advance directives: Yes
--- NOTE | 2024-06-09 21:41 | PC.NURSE ---
dehydrogenation operator head called at 2117 LUANN called @2123. spoke with Josefina. LUANN referral number- [id number]
--- NOTE | 2024-06-09 21:45 | PC.NURSE ---
LUANN called and cleared pt at this time
--- NOTE | 2024-06-09 22:05 | PC.NURSE ---
Upper Cutter Noemy Lock at the bedside at this time
--- NOTE | 2024-06-09 22:59 | PC.NURSE ---
2220- Noemy Lock cleared pt, and reports that she has notified the pts home of choice. Pts family would not life for us to clean him up at this time
--- NOTE | 2024-06-09 23:32 | PC.NURSE ---
pt left facility with [facility] staff at this time
--- NOTE | 2024-06-10 00:39 | PC.NURSE ---
Alexi Dowling APRN aware that pts blood cultures are positive
--- NOTE | 2024-06-12 15:44 | P.DS_ITS ---
General Admission date:: 06/09/24 Discharge date: 06/09/24 HPI HPI HPI: This 68-year-old white male was admitted from [facility] [place] after developing hypoxia. He was seen in the emergency room at [facility] and admitted. He was recently hospitalized for pleural effusion related to his known lung carcinoma on the right. During that hospitalization he acquired a pneumothorax after thoracentesis for the pleural effusion. Subsequently he fell and suffered a intertrochanteric fracture of the right femur which required pinning . After he was treated and stabilized he was transferred to [facility] [place]. He has been under the care of , recreation facility manager as well as his primary care doctor Dr. Lanza. He has suffered chronic low back pain. He has a deep sacral decubitus ulcer. He has protein calorie malnutrition. 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 In the emergency room he was treated for his hypoxia. He is currently on BiPAP. He is also developed atrial fibrillation with rapid ventricular response. He has received diltiazem for that. He is listed as DNR/DNI. Hospital Course Hospital Course Hospital Course: The patient was placed on BiPAP and continued on IV antibiotics oral medications had been ordered in the ER, but he was unable to take p.o. medications. Dr. Lanza ordered 1 dose of metoprolol 2.5 mg to slow his heart rate. He had already had 1 dose of diltiazem and a diltiazem drip was initiated. Due to his change in mental status, an noncontrast CT of the brain was ordered. The patient was a DNR and on 06/09/24 at 20:56 he was pronounced . Exam Data for Last 24 hours Vital signs and Labs for Last 24 Hours: Temp Pulse Resp BP Pulse Ox O2 Del Method O2 Flow Rate 97.7 F 0 L 0 L 49/31 L 90 L BiPAP 3 06/09/24 16:00 06/09/24 20:56 06/09/24 21:15 06/09/24 20:45 06/09/24 18:00 06/09/24 20:00 06/09/24 08:34 FiO2 100 06/09/24 16:47 Laboratory Results - last 24 hr 06/09/24 08:56: Urine Color Yellow, Urine Appearance Clear, Urine pH 6.0, Ur Specific [place] 1.025, Urine Protein 1+ A, Urine Glucose (UA) Negative, Urine Ketones Negative, Urine Blood Negative, Urine Nitrate Negative, Urine Bilirubin 1+ A, Urine Urobilinogen 4.0, Ur Leukocyte Esterase Negative, Urine RBC None, Urine WBC 3-5, Ur Squamous Epith Cells Occasional, Urine Bacteria Trace, Hyaline Casts 3-5, Urine Mucus 1+ I & O for Last 24 hours: Intake & Output 06/10/24 06/11/24 06/12/24 06/13/24 11:59 11:59 11:59 11:59 Intake Total 55.627 / 55.627 Balance 55.627 / 55.627 Weight 95 lb 6 oz Microbiology Reports for the Last 24 Hours: Microbiology 06/09/24 08:50 Blood Blood Culture - Preliminary Gram Positive Cocci Pseudomonas aeruginosa 06/09/24 09:29 Blood Blood Culture - Final Staphylococcus aureus Narrative: Constitutional Constitutional: cachectic, chronically ill appearing and obtunded (On BiPAP. Responds to sternal rub and some response to vocalization.) *Routine HEENT Exam Head: Present normocephalic Eye: Present other (Opacification of the right cornea due to glaucoma. Left pupil 3 mm) ENT: Present mucous membranes moist *Routine Neck Exam Neck: Present full ROM; Absent JVD Routine Chest/Breast/Axilla Exam Chest wall: Absent chest tube Axillae: Absent mass *Routine Respiratory Exam Respiratory: Present decreased breath sounds (He is on BiPAP.) *Routine Cardiovascular Exam Cardiovascular: Present tachycardia (Atrial fibrillation) *Routine Abdominal Exam Abdominal: Present soft (Scaphoid); Absent tenderness or mass *Routine Rectal Exam Rectal:: deferred *Routine Genitalia Exam Genitalia:: deferred *Routine Extremities Exam Extremities: Absent edema (Muscle atrophy) Routine Back/Spine/Pelvis Exam Pelvis: Present sacral tenderness (Deep sacral ulcer.) *Routine Skin Exam Skin: Present intact (Except for the deep sacral ulcer) *Routine Neurological Exam Neurological: Absent alert, oriented X3 or normal reflexes (No DTR reflexes bilaterally) Routine Psychiatric Exam Psychiatric: Absent normal affect Results Data Completed and Pending Labs on day of discharge: Labs from last 24 hours 06/09/24 08:56 Urine Color Yellow Urine Appearance Clear Urine pH 6.0 Ur Specific [place] 1.025 Urine Protein 1+ A Urine Glucose (UA) Negative Urine Ketones Negative Urine Blood Negative Urine Nitrate Negative Urine Bilirubin 1+ A Urine Urobilinogen 4.0 Ur Leukocyte Esterase Negative Urine RBC None Urine WBC 3-5 Ur Squamous Epith Cells Occasional Urine Bacteria Trace Hyaline Casts 3-5 Urine Mucus 1+ Preliminary micro results at discharge 06/09/24 08:50 Blood Culture - Preliminary Blood Gram Positive Cocci Pseudomonas aeruginosa DS: Diagnosis Discharge Diagnosis (1) Multifocal pneumonia: Status: Acute Code(s): J18.9 - Pneumonia, unspecified organism (2) Sepsis: Status: Acute Code(s): A41.9 - Sepsis, unspecified organism (3) Acute hypoxic respiratory failure: Status: Acute Code(s): J96.01 - Acute respiratory failure with hypoxia (4) Acute alteration in mental status: Status: Acute Code(s): R41.82 - Altered mental status, unspecified (5) Glaucoma of right eye: Status: Acute Code(s): H40.9 - Unspecified glaucoma (6) Closed intertrochanteric fracture of right femur: Status: Acute Code(s): S72.141A - Displaced intertrochanteric fracture of right femur, initial encounter for closed fracture Qualifiers: Encounter type: subsequent encounter Fracture alignment: nondisplaced Fracture healing: with routine healing Qualified Code(s): S72.144D - Nondisplaced intertrochanteric fracture of right femur, subsequent encounter for closed fracture with routine healing Problem details: Status post cephalomedullary nailing right proximal femur (7) Severe protein-calorie malnutrition: Status: Acute Code(s): E43 - Unspecified severe protein-calorie malnutrition (8) Malignant neoplasm of right upper lobe of lung: Status: Acute Code(s): C34.11 - Malignant neoplasm of upper lobe, right bronchus or lung (9) Malignant pleural effusion: Status: Acute Code(s): J91.0 - Malignant pleural effusion (10) Smoking greater than 30 pack years: Status: Chronic Code(s): F17.210 - Nicotine dependence, cigarettes, uncomplicated Meds Home Medications and Allergies Home Medications ?Medication ?Instructions ?Recorded ?Confirmed ?Type diazepam 10 mg tablet 10 mg PO TIDP PRN Anxiety 09/25/23 06/09/24 History gabapentin 600 mg tablet 600 mg PO QID 09/25/23 06/09/24 History levocetirizine 5 mg tablet 5 mg PO DAILY 09/25/23 06/09/24 History oxycodone 5 mg tablet 5 mg PO Q6HP PRN Severe Pain 09/25/23 06/09/24 History (Scale Score 7-10) sulindac 200 mg tablet 200 mg PO BID 09/25/23 06/09/24 History megestrol 400 mg/10 mL (40 mg/mL) 400 mg (10 mL) PO DAILY #250 mL 09/28/23 06/09/24 Rx oral suspension dexamethasone 4 mg tablet 4 mg PO BID #40 tabs 05/22/24 06/09/24 Rx fluticasone fur. 100 mcg-umeclid 1 inh inhalation DAILY #60 ea 05/31/24 06/09/24 Rx 62.5 mcg-vilant 25 mcg inhalat.powder (Trelegy Ellipta) ipratropium 0.5 mg-albuterol 3 mg 3 ml inhalation Q6HP PRN Shortness 05/31/24 06/09/24 Rx (2.5 mg base)/3 mL nebulization Of Breath #180 mL soln amino acid-protein hyd 16 gram-100 30 ml PO BID 06/09/24 06/09/24 History kcal/30 mL oral liq meter-dose pump (Liquacel) guaifenesin 600 mg tablet, 600 mg PO BID 06/09/24 06/09/24 History extended release 12 hr New Prescriptions to Start Prescriptions: Allergies Allergy/AdvReac Type Severity Reaction Status Date / Time Iodinated Contrast Media Allergy Intermediate Hives Verified 06/09/24 12:48 Discharge Plan Disposition Patient Disposition: Patient Discharge Instructions Print Language: Welsh Date/Time Date/Time: 06/09/24 23:59 Providers Primary Care Provider: Clyde Lanza Admit Provider: Lasha Isaac Attending Provider: Clyde Lanza
== END 2024-06-09 23:32 | disposition expired | DRG 871 ==
LOC: ER 10:04 → ICU 11:55
PROVIDERS: Admitting Provider Internal Medicine Adolescent Medicine; Emergency Provider Student in an Organized Health Care Education/Training Program; PCP Family Medicine; Visit Provider Family Medicine
DX: A41.9 Sepsis, unspecified organism (principal); E43 Unspecified severe protein-calorie malnutrition; J18.9 Pneumonia, unspecified organism; J96.01 Acute respiratory failure with hypoxia; Z68.1 Body mass index [BMI] 19.9 or less, adult; C34.91 Malignant neoplasm of unspecified part of right bronchus or lung; I48.91 Unspecified atrial fibrillation; L89.159 Pressure ulcer of sacral region, unspecified stage; Z87.891 Personal history of nicotine dependence; Z79.899 Other long term (current) drug therapy; Z80.6 Family history of leukemia; Z91.81 History of falling; Z98.890 Other specified postprocedural states
CPT/HCPCS: 36415; 70450; 71045; 80053; 81001; 82803; 82962; 83605; 83880; 84484; 85007; 85025; 86803; 87040; 87077; 87186; 87389; 87636; 93005; 94640; 99291; G0378; J0456; J2543; J2919; J3372; J3475; J7050; J7120; J7620